=== PATIENT | male | born 1970 | race Two or more races ===

== ENCOUNTER 2019-03-27 13:28 | Inpatient (IN) | payer MEDICAID, OTHER ==
[~2019-03-27] VITALS: Ht 175.3 cm; Wt 82.0 kg
[2019-03-27 14:34] LABS: Basophils # (auto) 0.1 uL; Basophils % (auto) 1.7 % (0.0-2.0); Eosinophils # (auto) 0.2 uL; Eosinophils % (auto) 4.8 % (0.0-7.0); Hematocrit 30.2 % (41.0-53.0); Hemoglobin 10.2 g/dL (13.5-17.5); Lymphocytes # (auto) 0.6 uL; Lymphocytes % (auto) 12.8 % (10.0-50.0); Mean Corpuscular Hemoglobin 31.8 pg (28.0-32.0); Mean Corpuscular Hgb Conc. 33.6 g/dL (32.0-36.0); Mean Corpuscular Volume 94.6 fL (80.0-100.0); Monocytes # (auto) 0.4 uL; Monocytes % (auto) 9.1 % (0.0-12.0); Neutrophils # (auto) 3.5 uL; Neutrophils % (auto) 71.6 % (37.0-80.0); Platelet Count (auto) 247 10^3/uL (140-450); Red Blood Cells 3.19 10^6/uL (4.5-5.90); Red Cell Distribution Width 15.8 % (11.8-14.3); White Blood Cell 4.9 10^3/uL (4.4-10.8)
[2019-03-27 14:48] LABS: Albumin 3.4 g/dL (3.4-5.0); Calcium 9.4 mg/dL (8.5-10.1)
[2019-03-27 14:50] LABS: BUN/Creatinine Ratio 5.8
[2019-03-27 14:53] LABS: Bilirubin, Total 0.8 mg/dL (0.2-1.0); Total Protein 6.5 g/dL (6.4-8.2)
[2019-03-27] MEDS ORDERED: cefTRIAXone W LIDOCAINE 1 GM IM IM ONE (15:30)
[2019-03-27] MEDS ORDERED: InsuLIN REG 1unit/0.01ml Soln (100units/ml) IV ONE (16:15)
[2019-03-27] MEDS ORDERED: ALBUTEROL SULF 2.5 MG/0.5ML(0.5%) NEB SOLN NEB ONE (16:15)
[2019-03-27] MEDS ORDERED: SODIUM BICARBONATE 8.4% INJ 50ML SYRINGE IV ONE (16:15)
[2019-03-27] MEDS ORDERED: CALCIUM GLUC 4.65meq/50ml D5AE 50 ML IV ONE (16:15)
[2019-03-27] MEDS ORDERED: DEXTROSE (50%) 50ML SYRG IV ONE (16:15)
[2019-03-27] MEDS: SODIUM ZIRCONIUM CYCL 10 GM PAK PO SCH (17:14)
[2019-03-27] MEDS ORDERED: cefTRIAXone 1GM/50ML D5W 50 ML IV ONE (17:15)
[2019-03-27] MEDS ORDERED: NITROGLYCERIN 0.4 MG SL TAB SL PRN (17:30)
[2019-03-27] MEDS ORDERED: MORPHINE SULF INJ 2 MG/ML SYRINGE 1ML IV PRN (17:30)
[2019-03-27] MEDS ORDERED: DEXTROSE (50%) 50ML SYRG IV PRN (17:30)
[2019-03-27] MEDS: CARVEDILOL 3.125 MG TAB PO SCH (17:39)
[2019-03-27] MEDS: LABETALOL HCL 5 MG/ML 4ML SYRINGE IV PRN ×2 (18:35→23:26)
[2019-03-27] MEDS ORDERED: CAR3125T PO (20:24)
[2019-03-27] MEDS ORDERED: AMLO5TAB15 PO (20:28)
[2019-03-27] MEDS ORDERED: CALC667C PO (20:28)
[2019-03-27] MEDS ORDERED: FURO1TAB31 PO (20:28)
[2019-03-27] MEDS ORDERED: LISI-275 PO (20:28)
[2019-03-27] MEDS ORDERED: ATOR40TA52 PO (20:28)
[2019-03-27] MEDS ORDERED: TICA90TA PO (20:28)
[2019-03-27] MEDS ORDERED: INSLANTI SC (20:46)
[2019-03-27] MEDS ORDERED: INSREG3 SC (20:46)
[2019-03-27 21:37] VITALS: BP 176/109
--- NOTE | 2019-03-27 21:37 | NUR ---
Telemetry admit from ER CODY SUAREZ admitted to Telemetry unit after SBAR received. Patient oriented to KATHERINE BLANK, RN primary RN, [facility], 236 room, A bed, and unit policies regarding patient care and visiting hours. Patient now on continuous telemetry monitoring, tele box # 14 and telemetry reading on arrival to unit is SR. Patient placed on bedside oxygen, weighed by bedscale and encouraged to call if they need something. All questions and concerns addressed, patient verbalized understanding.
[2019-03-27] MEDS: TICAGRELOR 90 MG TAB PO SCH (22:46)
[2019-03-27] MEDS: INSULIN LANTUS (GLARGINE) 1 /0.01ml (100units/ml) SC SCH (22:47)
[2019-03-27] MEDS: ACCU-CHEK COMFORT CURVE STRIP VI SCH (22:47)
[2019-03-27] MEDS: InsuLIN REG 1unit/0.01ml Soln (100units/ml) SC SCH (22:47)
[2019-03-27 22:50] VITALS: BP 176/109
--- NOTE | 2019-03-28 01:00 | NUR ---
Paged Hospitalist to obtain sleeping pill. Hospitalist Magan ordered 15 Temazepam PO x1. Repeated orders to verified. Will follow as order.
[2019-03-28] MEDS ORDERED: TEMAZEPAM 15 MG CAP PO ONE (01:15)
[2019-03-28] MEDS: LABETALOL HCL 5 MG/ML 4ML SYRINGE IV PRN (02:08)
--- NOTE | 2019-03-28 02:15 | NUR ---
Patient ask to check his blood sugar. He felt it low. Blood sugar results of 67. Gave him juice and some crackers. Will reassess blood sugar after he eats
--- NOTE | 2019-03-28 03:03 | NUR ---
Reassess Blood sugar. Blood sugar 83
[2019-03-28 05:00] VITALS: BP 149/97
[2019-03-28 05:48] LABS: Basophils # (auto) 0.1 uL; Basophils % (auto) 1.3 % (0.0-2.0); Eosinophils # (auto) 0.3 uL; Eosinophils % (auto) 5.2 % (0.0-7.0); Hematocrit 27.2 % (41.0-53.0); Hemoglobin 9.2 g/dL (13.5-17.5); Lymphocytes # (auto) 0.7 uL; Lymphocytes % (auto) 13.6 % (10.0-50.0); Monocytes # (auto) 0.4 uL; Monocytes % (auto) 8.3 % (0.0-12.0); Neutrophils # (auto) 3.5 uL; Neutrophils % (auto) 71.6 % (37.0-80.0); Platelet Count (auto) 223 10^3/uL (140-450); Red Blood Cells 2.89 10^6/uL (4.5-5.90); Red Cell Distribution Width 15.6 % (11.8-14.3); White Blood Cell 4.9 10^3/uL (4.4-10.8)
[2019-03-28 06:29] LABS: BUN/Creatinine Ratio 6.4; Bilirubin, Total 0.6 mg/dL (0.2-1.0); Calcium 8.6 mg/dL (8.5-10.1); Total Protein 6.2 g/dL (6.4-8.2)
[2019-03-28] MEDS: SODIUM ZIRCONIUM CYCL 10 GM PAK PO SCH ×3 (06:29→22:00)
[2019-03-28 06:40] LABS: Potassium 5.8 mmol/L (3.5-5.1)
[2019-03-28] MEDS: ACCU-CHEK COMFORT CURVE STRIP VI SCH ×3 (06:41→18:16)
[2019-03-28] MEDS: InsuLIN REG 1unit/0.01ml Soln (100units/ml) SC SCH ×3 (06:41→18:17)
--- NOTE | 2019-03-28 06:41 | NUR ---
Paged hospitalist about critical lab. Waiting to hear back.
--- NOTE | 2019-03-28 07:04 | NUR ---
Hospitalist Magan called back. Updated him on the patient's background, ESRD, dialysis schedule for today, and [facility] admnister around 06:20. Magan stated, "that should cover him".
--- NOTE | 2019-03-28 08:05 | NUR ---
OPENING SHIFT NOTE ASSUMED CARE OF PT. PT IS AWAKE AND ALERT. NO SOB OR SIGNS OF DISTRESS NOTED. INSTRUCTED ON POC AND TO CALL FOR HELP PRN. BED IN LOWEST POSITION WITH SIDE RAILS UP X2. WILL CONTINUE TO MONITOR.
[2019-03-28 09:00] VITALS: BP 159/103
[2019-03-28] MEDS ORDERED: LISINOPRIL 20 MG TAB PO SCH (10:00)
[2019-03-28] MEDS: ASPirin-EC 81 mg tab PO SCH (10:08)
[2019-03-28] MEDS: CARVEDILOL 3.125 MG TAB PO SCH ×2 (10:08→18:14)
[2019-03-28] MEDS: TICAGRELOR 90 MG TAB PO SCH (10:09)
[2019-03-28] MEDS: amLODIPine BESYLATE 5 MG TAB PO SCH (10:09)
--- NOTE | 2019-03-28 11:42 | NUR ---
Nutrition Assessment/consult Notes please see attached link for complete assessment Est. Needs BW (82 kg): 4947-6578 kcal (27-30 kcal/kgBW), 98-106 gms pro (1.2-1.3 gms/kgBW r/t HD). Will continue to monitor pertinent labs and reassess nutrient need prn Addendum: 03/28/19 at [address] Amended: Links added.
[2019-03-28 13:00] VITALS: BP 161/98
[2019-03-28] MEDS ORDERED: FUROSEMIDE 40 MG/4 ML VIAL IV ONE (13:00)
[2019-03-28] MEDS ORDERED: ISOSORBIDE MONONITRATE ER 60 MG TAB PO ONE (13:15)
[2019-03-28] MEDS ORDERED: hydrALAZINE HCL 20 MG/ML VL IV PRN (13:15)
--- NOTE | 2019-03-28 13:15 | NUR ---
REVIEWED HOME MEDICATIONS WITH PT. PT HAS LASIX 40 MG PO 4 TIMES DAILY. PT STATES HE "TAKES 7 LASIX TABLETS PER DAY". DR HAHN IS AWARE.
[2019-03-28] MEDS ORDERED: hydrALAZINE HCL 25 MG TAB PO SCH (14:00)
[2019-03-28] MEDS: hydrALAZINE HCL 25 MG TAB PO SCH ×2 (15:49→18:15)
[2019-03-28] MEDS: CALCIUM ACETATE 667 MG CAP PO SCH (15:50)
[2019-03-28 16:56] VITALS: BP 163/100
[2019-03-28 20:00] VITALS: BP 142/91
--- NOTE | 2019-03-28 20:00 | NUR ---
Opening Shift Note Assumed care of patient, awake and alert. No S/S of distress/SOB or pain. Instructed on POC and to call for assist PRN, will continue to monitor for changes Q1hr and PRN. Dialysis nurse at bedside.
[2019-03-28] MEDS ORDERED: SODIUM CHL 0.9% 1000 ML BAG XX ONE (20:30)
[2019-03-28] MEDS ORDERED: EPOETIN ALFA 10,000 UNIT/1 ML VIAL SC ONE (20:30)
[2019-03-28 22:00] VITALS: BP 142/91
--- NOTE | 2019-03-28 22:00 | NUR ---
2200 Medications not given because dialysis going.
[2019-03-29] VITALS (7 sets, daily range): BP systolic 145–151; BP diastolic 86–93
--- NOTE | 2019-03-29 00:20 | NUR ---
Dialysis treatment done. Nurse from [facility] gave me primary nurse report. Patient's last BP 155/89 and HR 88. 4L were taken out. Patient complains of no pain or dizziness. Asked for food will give a sandwich.
[2019-03-29] MEDS: hydrALAZINE HCL 25 MG TAB PO SCH ×4 (00:52→22:34)
[2019-03-29] MEDS: TICAGRELOR 90 MG TAB PO SCH ×3 (00:52→22:34)
[2019-03-29] MEDS: ATORVASTATIN 20 MG TAB PO SCH ×2 (00:53→22:34)
[2019-03-29] MEDS: INSULIN LANTUS (GLARGINE) 1 /0.01ml (100units/ml) SC SCH ×2 (00:55→22:00)
[2019-03-29] MEDS: InsuLIN REG 1unit/0.01ml Soln (100units/ml) SC SCH ×5 (00:55→22:00)
[2019-03-29] MEDS: ACCU-CHEK COMFORT CURVE STRIP VI SCH ×5 (00:56→22:00)
[2019-03-29] MEDS ORDERED: SODIUM CHL 0.9% 1000 ML BAG XX ONE (07:00)
[2019-03-29 07:47] LABS: Basophils # (auto) 0.1 uL; Eosinophils # (auto) 0.2 uL; Eosinophils % (auto) 5.6 % (0.0-7.0); Hematocrit 28.3 % (41.0-53.0); Hemoglobin 9.5 g/dL (13.5-17.5); Lymphocytes # (auto) 0.4 uL; Lymphocytes % (auto) 11.5 % (10.0-50.0); Mean Corpuscular Hemoglobin 31.9 pg (28.0-32.0); Mean Corpuscular Hgb Conc. 33.7 g/dL (32.0-36.0); Mean Corpuscular Volume 94.7 fL (80.0-100.0); Monocytes # (auto) 0.3 uL; Monocytes % (auto) 6.9 % (0.0-12.0); Neutrophils # (auto) 2.8 uL; Platelet Count (auto) 210 10^3/uL (140-450); Red Blood Cells 2.98 10^6/uL (4.5-5.90); Red Cell Distribution Width 16.2 % (11.8-14.3); White Blood Cell 3.8 10^3/uL (4.4-10.8)
--- NOTE | 2019-03-29 08:00 | NUR ---
ASSESSMENT NOTE PT IS ALERT ORIENTED X4, RESTING IN BED COMFORTABLY, NO DISTRESS NOTED, ABLE TO SELF REPOSITION AND VERBALIS HIS DEMANDS, PT STATED I GET CHEST PAIN COME AND GO 10/26, ARE THEY GOING TO DO ANY THING ABOUT IT ? >, PT MADE AWARE THAT A MAINFRAME ARCHITECT WILL COME AND SEE HIM TODAY, PT DENIES ANY ACTIVE CHEST PAIN AT THIS TIME , CALL LIGHT WITHIN REACH.
[2019-03-29 08:13] LABS: Albumin 3.1 g/dL (3.4-5.0); BUN/Creatinine Ratio 5.5; Bilirubin, Total 0.6 mg/dL (0.2-1.0); Calcium 8.1 mg/dL (8.5-10.1); Magnesium 2.5 mg/dL (1.6-2.6); Total Protein 6.6 g/dL (6.4-8.2)
[2019-03-29 08:20] LABS: Potassium 5.8 mmol/L (3.5-5.1)
[2019-03-29] MEDS: CALCIUM ACETATE 667 MG CAP PO SCH ×3 (08:39→18:00)
[2019-03-29] MEDS: CARVEDILOL 3.125 MG TAB PO SCH ×2 (08:40→17:48)
[2019-03-29] MEDS: SODIUM ZIRCONIUM CYCL 10 GM PAK PO SCH ×2 (08:51→14:00)
[2019-03-29] MEDS: ISOSORBIDE MONONITRATE ER 60 MG TAB PO SCH (08:52)
[2019-03-29] MEDS: ASPirin-EC 81 mg tab PO SCH (08:52)
[2019-03-29] MEDS: amLODIPine BESYLATE 5 MG TAB PO SCH (08:53)
[2019-03-29] MEDS ORDERED: DOCUSATE SOD 100 MG CAP PO ONE (09:00)
[2019-03-29] MEDS ORDERED: DOCUSATE SOD 100 MG CAP PO PRN (09:00)
[2019-03-29] MEDS ORDERED: FUROSEMIDE 40 MG/4 ML VIAL IV SCH (10:00)
[2019-03-29] MEDS: SEVELAMER 800 MG TAB PO SCH ×2 (12:00→18:00)
--- NOTE | 2019-03-29 12:09 | NUR ---
LASIX [address] SPENCE, MADE AWARE THAT 40 MG IV WAS GIVEN EARLIER, SAID TO GIVE THE 80 MG LASIX AND CHANGE THE ORDER TO LASIX 80 EVERY MORNING
[2019-03-29] MEDS: FUROSEMIDE 100 MG/10ML VIAL IV SCH (12:55)
[2019-03-29] MEDS ORDERED: LACTULOSE 20Gm/30ML SOLN PO PRN (13:00)
[2019-03-29] MEDS ORDERED: SODIUM ZIRCONIUM CYCL 10 GM PAK PO ONE (17:45)
--- NOTE | 2019-03-29 18:30 | NUR ---
FAMILY APTIENT'S AND THE CHILDREN AT BED SIDE
--- NOTE | 2019-03-29 18:50 | NUR ---
PT CONTINUE STABLE CONTINUE MONITORING
--- NOTE | 2019-03-29 19:50 | NUR ---
Opening Shift Note Assumed care of patient, awake and alert. No S/S of distress/SOB or pain. Instructed on POC and to call for assist PRN, will continue to monitor for changes Q1hr and PRN. and grandchildren at bedside.
[2019-03-29] MEDS ORDERED: EPOETIN ALFA 10,000 UNIT/1 ML VIAL SC ONE (21:00)
--- NOTE | 2019-03-29 22:20 | NUR ---
Patient refused his Lantus medication. Educated but still refused.
--- NOTE | 2019-03-30 00:55 | NUR ---
IV insertion IV access obtained, via clean sterile technique by inserting 22 gauge catheter at RAC after 2 attempts. IV secured properly. No trauma to site. Patient tolerated well.
[2019-03-30 05:00] VITALS: BP 149/88
[2019-03-30] MEDS: hydrALAZINE HCL 25 MG TAB PO SCH ×2 (06:25→15:15)
[2019-03-30] MEDS: InsuLIN REG 1unit/0.01ml Soln (100units/ml) SC SCH ×3 (06:26→13:30)
[2019-03-30] MEDS: ACCU-CHEK COMFORT CURVE STRIP VI SCH ×2 (06:26→11:30)
[2019-03-30 06:29] LABS: Chloride 102 mmol/L (98-107); Potassium 4.8 mmol/L (3.5-5.1); Sodium 140 mmol/L (136-145)
[2019-03-30 06:41] LABS: Anion Gap 6 (5-15); BUN/Creatinine Ratio 6.4; Blood Urea Nitrogen 48 mg/dL (7-18); Calcium 8.5 mg/dL (8.5-10.1); Carbon Dioxide 32 mmol/L (21-32); GFR African American 10 mL/min; GFR Non-African American 8 mL/min; Glucose 94 mg/dL (74-106)
[2019-03-30] MEDS ORDERED: SODIUM CHL 0.9% 1000 ML BAG XX ONE (07:00)
--- NOTE | 2019-03-30 07:50 | NUR ---
NUCLEAR MEDS TECH AT BED SIDE INJECTING THE CARDIOLITE,FOLLOWED BY PT LEFT FOR THE RESTING PART FOR THE RESTING PART
[2019-03-30 08:00] VITALS: BP 149/88
[2019-03-30] MEDS: SEVELAMER 800 MG TAB PO SCH ×2 (08:00→13:42)
[2019-03-30] MEDS: CALCIUM ACETATE 667 MG CAP PO SCH ×2 (08:00→13:42)
--- NOTE | 2019-03-30 08:00 | NUR ---
ASSESSMENT NOTE PT IS ALERT ORIENTED X4, RESTING IN BED COMFORTABLY, NO DISTRESS NOTED, ABLE TO SELF REPOSITION AND VERBALIS HIS DEMANDS, DENIES ANY CHEST PAIN AT THIS TIME 010, AV SHUNT NOTED AT LEFT UPPER ARM, FOR THRILL, CALL LIGHT WITHIN REACH
[2019-03-30] MEDS ORDERED: ADENOSINE 69 MG in GIVE UN-DILUTED 0 ML IV STA (08:32)
[2019-03-30 09:00] VITALS: BP 157/91
--- NOTE | 2019-03-30 09:30 | NUR ---
PT LEFT VIA WHEELCHAIR FOR STRESS TEST
[2019-03-30] MEDS: FUROSEMIDE 100 MG/10ML VIAL IV SCH (10:00)
--- NOTE | 2019-03-30 10:30 | NUR ---
PT IS BACK TO HIS ROOM TOLERATED STRESS TEST WELL, PT TOLERATED WELL
--- NOTE | 2019-03-30 11:30 | NUR ---
DR HAHN INFORM ME THAT SHE SEEN THE PT, AWARE OF THE DISCHARGE HOME, AND HE NEED TO STOP LOSARTAN SINCE IT INCREASE HIS K+
[2019-03-30] MEDS ORDERED: ISO60SRT PO (12:13)
[2019-03-30] MEDS ORDERED: CAR3125T PO (12:13)
[2019-03-30] MEDS ORDERED: HYDR-2691 PO (12:13)
--- NOTE | 2019-03-30 12:30 | NUR ---
DIALYSIS PT CONTINUE TOLERATING DIET WELL
[2019-03-30 13:00] VITALS: BP 172/96
--- NOTE | 2019-03-30 13:49 | NUR ---
DIALYSIS IS DONE PT TOLERATED WELL
--- NOTE | 2019-03-30 15:00 | NUR ---
STRESS TEST RESULTS CONTINUE PENDING FOR THE RESULTS
[2019-03-30] MEDS: ASPirin-EC 81 mg tab PO SCH (15:11)
[2019-03-30] MEDS: CARVEDILOL 3.125 MG TAB PO SCH (15:14)
[2019-03-30] MEDS: ISOSORBIDE MONONITRATE ER 60 MG TAB PO SCH (15:14)
[2019-03-30] MEDS: amLODIPine BESYLATE 5 MG TAB PO SCH (15:15)
[2019-03-30 15:22] VITALS: BP 164/100
--- NOTE | 2019-03-30 15:30 | NUR ---
PAGE DR HAHN TO OBTAIN THE NEW RX, AND LET HER KNOW ABOUT THE STRESS TEST RESUKTS CONTINUE PENDING, DR HAHN WAS NOT AVALIABLE IN HER OFFICE, MESSAGE LEFT WITH DR CORREA
--- NOTE | 2019-03-30 15:32 | NUR ---
DR HAHN CALLED BACK SAID THAT SHE SENT THE NEW RX ELECTRONICALLY TO PT PREFERRED PHARMACY
--- NOTE | 2019-03-30 15:36 | NUR ---
SPOKE WITH DR COREAS REGARDING STRESS TEST RESULTS, SAID PT CAN GO HOME
[2019-03-30] MEDS: TICAGRELOR 90 MG TAB PO SCH (15:46)
--- NOTE | 2019-03-30 16:44 | NUR ---
Discharge instructions given as ordered. Encourage to follow up with PMD as instructed. All questions and concerns addressed. Patient verbalized understanding. Medication reconciliation form completed and copy given to patient.IV removed with catheter intact, pressure dressing applied, Telemetry unit returned to ICU. Patient taken to vehicle via wheelchair with all personal belongings, accompanied by staff and family member. No distress noted at time of departure.
[2019-03-30] MEDS ORDERED: EPOETIN ALFA 10,000 UNIT/1 ML VIAL SC ONE (21:00)
--- NOTE | 2019-03-31 12:09 | NUR ---
Social Service consult regarding Advance Directives. Provided pt with informarion on Advance Directives and Durable Power of business attorney Form. Pt verbalized understanding and acceptance o information. Will Contact [employer] services field supervisor for any further concerns. or issues.
== END 2019-03-30 17:45 | disposition home or self-care (01) | DRG 194 ==
LOC: ER 13:45 → TELE 13:46 → TELE-EAST 21:37
PROVIDERS: ADMIT Nurse Practitioner Acute Care; ATTEND Internal Medicine
PROC: 5A1D70Z Performance of Urinary Filtration, Intermittent, Less than 6 Hours Per Day (ICD-10-PCS; 2019-03-28)
PROC: 5A1D70Z Performance of Urinary Filtration, Intermittent, Less than 6 Hours Per Day (ICD-10-PCS; principal; 2019-03-30)
DX: I13.2 Hypertensive heart and chronic kidney disease with heart failure and with stage 5 chronic kidney disease, or end stage renal disease (principal); E11.22 Type 2 diabetes mellitus with diabetic chronic kidney disease; N18.6 End stage renal disease; I50.43 Acute on chronic combined systolic (congestive) and diastolic (congestive) heart failure; E11.65 Type 2 diabetes mellitus with hyperglycemia; E83.39 Other disorders of phosphorus metabolism; D63.1 Anemia in chronic kidney disease; J44.1 Chronic obstructive pulmonary disease with (acute) exacerbation; I16.0 Hypertensive urgency; F17.210 Nicotine dependence, cigarettes, uncomplicated; I25.5 Ischemic cardiomyopathy; K59.00 Constipation, unspecified; E87.5 Hyperkalemia; Z99.2 Dependence on renal dialysis; Z95.5 Presence of coronary angioplasty implant and graft; Z79.899 Other long term (current) drug therapy; Z82.49 Family history of ischemic heart disease and other diseases of the circulatory system; Z83.3 Family history of diabetes mellitus; Z86.73 Personal history of transient ischemic attack (TIA), and cerebral infarction without residual deficits; Z87.01 Personal history of pneumonia (recurrent); Z79.84 Long term (current) use of oral hypoglycemic drugs
CPT/HCPCS: 36415; 71046; 71250; 78452; 80048; 80053; 80061; 82306; 82728; 82962; 83036; 83735; 83880; 83970; 84100; 84132; 84484; 85025; 87081; 90935; 93005; 93017; 93306; 94644; 96365; 96367; 96375; G0378; J0153; J0610; J0696; J0885; J1642; J1815; J3490

== ENCOUNTER 2019-06-12 13:52 | Inpatient (IN) | payer MEDICARE, MEDICAID ==
[~2019-06-12] VITALS: Ht 172.7 cm; Wt 85.5 kg
[~2019-06-12 13:52] MED LIST: AMLO5TAB15 PO; ATOR40TA52 PO; CALC667C PO; CAR3125T PO; FURO1TAB31 PO; HYDR-2691 PO; INSLANTI SC; INSREG3 SC; ISO60SRT PO; TICA90TA PO
[2019-06-12 14:22] LABS: Basophils # (auto) 0 uL; Basophils % (auto) 0.3 % (0.0-2.0); Eosinophils # (auto) 0.5 uL; Eosinophils % (auto) 10.3 % (0.0-7.0); Hematocrit 31.9 % (41.0-53.0); Hemoglobin 10.5 g/dL (13.5-17.5); Lymphocytes # (auto) 0.5 uL; Lymphocytes % (auto) 10.4 % (10.0-50.0); Mean Corpuscular Hemoglobin 32.1 pg (28.0-32.0); Mean Corpuscular Hgb Conc. 33.1 g/dL (32.0-36.0); Monocytes # (auto) 0.3 uL; Monocytes % (auto) 6.3 % (0.0-12.0); Neutrophils # (auto) 3.4 uL; Neutrophils % (auto) 72.7 % (37.0-80.0); Platelet Count (auto) 137 10^3/uL (140-450); Red Blood Cells 3.28 10^6/uL (4.5-5.90); Red Cell Distribution Width 18.9 % (11.8-14.3); White Blood Cell 4.7 10^3/uL (4.4-10.8)
[2019-06-12 14:47] LABS: Albumin 3.6 g/dL (3.4-5.0); BUN/Creatinine Ratio 7.2; Calcium 8.6 mg/dL (8.5-10.1)
[2019-06-12 14:50] LABS: Bilirubin, Total 0.7 mg/dL (0.2-1.0); Total Protein 7.1 g/dL (6.4-8.2)
[2019-06-12 14:54] LABS: Potassium 6.5 mmol/L (3.5-5.1)
[2019-06-12] MEDS ORDERED: SODIUM ZIRCONIUM CYCL 10 GM PAK PO ONE (16:45)
[2019-06-12] MEDS ORDERED: InsuLIN REG 1unit/0.01ml Soln (100units/ml) IV ONE (16:45)
[2019-06-12] MEDS ORDERED: DEXTROSE (50%) 50ML SYRG IV ONE (16:45)
[2019-06-12] MEDS ORDERED: ALBUTEROL SULF 2.5 MG/0.5ML(0.5%) NEB SOLN NEB ONE (16:45)
[2019-06-12] MEDS ORDERED: SODIUM BICARBONATE 8.4 % INJ 50ML VIAL IV ONE (16:45)
[2019-06-12] MEDS ORDERED: CALCIUM GLUC 4.65meq/50ml D5AE 50 ML IV ONE (16:45)
[2019-06-12] MEDS ORDERED: HYDROmorphone HCL 2 MG/ML VL IV ONE (19:00)
[2019-06-12] MEDS ORDERED: NITROGLYCERIN 0.4MG/HR TOPICAL PATCH TD ONE (19:45)
[2019-06-12] MEDS ORDERED: ENALAPRILAT 1.25 MG/ML-1ML VIAL IV ONE (19:45)
[2019-06-12] MEDS ORDERED: ONDANSETRON HCL 4 MG/2 ML VIAL IV PRN (20:45)
[2019-06-12] MEDS ORDERED: DOCUSATE SOD 100 MG CAP PO PRN (20:45)
[2019-06-12] MEDS ORDERED: ACETAMINOPHEN 325 MG TAB PO PRN (20:45)
[2019-06-12] MEDS ORDERED: MORPHINE SULF INJ 2 MG/ML SYRINGE 1ML IV PRN (20:45)
[2019-06-12 22:48] VITALS: BP_SYST 123; BP_SYST 170; BP_DIAS 69; BP_DIAS 95
[2019-06-12] MEDS: hydrALAZINE HCL 25 MG TAB PO PRN (23:43)
[2019-06-13] VITALS (7 sets, daily range): BP systolic 151–176; BP diastolic 86–102
[2019-06-13] MEDS ORDERED: DEXTROSE (50%) 50ML SYRG IV PRN (01:45)
[2019-06-13] MEDS: ACCU-CHEK COMFORT CURVE STRIP VI SCH ×6 (04:11→23:57)
[2019-06-13] MEDS: InsuLIN REG 1unit/0.01ml Soln (100units/ml) SC SCH ×6 (04:11→23:58)
[2019-06-13] MEDS ORDERED: PNEUMOCOCCAL VACC POLYS 25 MCG/0.5 ML VIAL IM ONE (06:15)
[2019-06-13] MEDS ORDERED: INFLUENZA QUAD 2019-2020 0.5ml SYRG IM ONE (06:15)
[2019-06-13 06:51] LABS: Basophils # (auto) 0.1 uL; Basophils % (auto) 1.3 % (0.0-2.0); Eosinophils # (auto) 0.4 uL; Eosinophils % (auto) 8.2 % (0.0-7.0); Hematocrit 28.2 % (41.0-53.0); Hemoglobin 9.6 g/dL (13.5-17.5); Lymphocytes # (auto) 0.7 uL; Lymphocytes % (auto) 13.6 % (10.0-50.0); Mean Corpuscular Hemoglobin 32.4 pg (28.0-32.0); Mean Corpuscular Hgb Conc. 33.9 g/dL (32.0-36.0); Mean Corpuscular Volume 95.5 fL (80.0-100.0); Monocytes # (auto) 0.4 uL; Monocytes % (auto) 7.5 % (0.0-12.0); Neutrophils # (auto) 3.4 uL; Neutrophils % (auto) 69.4 % (37.0-80.0); Platelet Count (auto) 119 10^3/uL (140-450); Red Blood Cells 2.95 10^6/uL (4.5-5.90); Red Cell Distribution Width 18.6 % (11.8-14.3); White Blood Cell 4.9 10^3/uL (4.4-10.8)
[2019-06-13 07:14] LABS: BUN/Creatinine Ratio 6.9; Calcium 8.7 mg/dL (8.5-10.1); Phosphorus 6.5 mg/dL (2.5-4.90)
[2019-06-13 07:48] LABS: Potassium 6.1 mmol/L (3.5-5.1)
[2019-06-13] MEDS ORDERED: SODIUM CHL 0.9% 1000 ML BAG XX ONE (08:15)
[2019-06-13] MEDS ORDERED: LOPERAMIDE HCL 2 MG CAP PO ONE (09:45)
[2019-06-13] MEDS ORDERED: BUMETANIDE 2.5mg/10ml (0.25 mg/ml) INJ IV ONE (09:45)
[2019-06-13] MEDS: SEVELAMER 800 MG TAB PO SCH ×2 (12:40→18:45)
[2019-06-13] MEDS: HYDROcodone-ACET 5/325MG TAB PO PRN ×2 (15:57→23:54)
[2019-06-13] MEDS: hydrALAZINE HCL 25 MG TAB PO PRN (18:45)
[2019-06-13] MEDS ORDERED: AMLO5TAB15 PO (20:24)
[2019-06-13] MEDS ORDERED: FURO40TA4 PO (20:26)
[2019-06-13] MEDS ORDERED: METO-169 PO (20:29)
[2019-06-13] MEDS ORDERED: LISI40TA PO (20:31)
[2019-06-13] MEDS ORDERED: ASPI-404 PO (20:32)
[2019-06-13] MEDS ORDERED: EPOETIN ALFA 10,000 UNIT/1 ML VIAL SC ONE (21:00)
[2019-06-13] MEDS ORDERED: LABETALOL HCL 5 MG/ML 4ML SYRINGE IV ONE (21:15)
[2019-06-13] MEDS ORDERED: INSULIN LANTUS (GLARGINE) 1 /0.01ml (100units/ml) SC SCH (22:00)
[2019-06-13] MEDS ORDERED: LABETALOL HCL 5 MG/ML ML 20ML VIAL IV ONE (22:15)
[2019-06-14] MEDS ORDERED: DEXTROSE (50%) 50ML SYRG IV PRN (00:45)
[2019-06-14] MEDS: InsuLIN REG 1unit/0.01ml Soln (100units/ml) SC SCH ×4 (04:00→16:00)
[2019-06-14] MEDS: ACCU-CHEK COMFORT CURVE STRIP VI SCH ×4 (04:14→16:00)
[2019-06-14 05:00] VITALS: BP 156/95
[2019-06-14] MEDS: hydrALAZINE HCL 25 MG TAB PO PRN (05:37)
[2019-06-14 06:13] LABS: Basophils # (auto) 0.1 uL; Basophils % (auto) 1.9 % (0.0-2.0); Eosinophils # (auto) 0.3 uL; Eosinophils % (auto) 7.9 % (0.0-7.0); Hematocrit 28.3 % (41.0-53.0); Hemoglobin 9.4 g/dL (13.5-17.5); Lymphocytes # (auto) 0.4 uL; Lymphocytes % (auto) 9.6 % (10.0-50.0); Mean Corpuscular Hemoglobin 31.7 pg (28.0-32.0); Mean Corpuscular Hgb Conc. 33.2 g/dL (32.0-36.0); Mean Corpuscular Volume 95.5 fL (80.0-100.0); Monocytes # (auto) 0.3 uL; Monocytes % (auto) 7.1 % (0.0-12.0); Neutrophils % (auto) 73.5 % (37.0-80.0); Platelet Count (auto) 123 10^3/uL (140-450); Red Blood Cells 2.96 10^6/uL (4.5-5.90); Red Cell Distribution Width 18.4 % (11.8-14.3); White Blood Cell 4.1 10^3/uL (4.4-10.8)
[2019-06-14 06:45] LABS: BUN/Creatinine Ratio 6.5; Calcium 8.3 mg/dL (8.5-10.1)
[2019-06-14 06:55] LABS: Potassium 6.1 mmol/L (3.5-5.1)
[2019-06-14] MEDS ORDERED: DEXTROSE (50%) 50ML SYRG IV ONE (07:45)
[2019-06-14] MEDS ORDERED: LACTULOSE 20Gm/30ML SOLN PO ONE (07:45)
[2019-06-14] MEDS ORDERED: BUMETANIDE 2.5mg/10ml (0.25 mg/ml) INJ IV ONE (07:45)
[2019-06-14] MEDS ORDERED: InsuLIN REG 1unit/0.01ml Soln (100units/ml) IV ONE (07:45)
[2019-06-14] MEDS ORDERED: ALBUTEROL SULF 2.5 MG/0.5ML(0.5%) NEB SOLN NEB ONE (07:45)
[2019-06-14] MEDS: HYDROcodone-ACET 5/325MG TAB PO PRN ×2 (08:07→15:21)
[2019-06-14] MEDS: SEVELAMER 800 MG TAB PO SCH ×3 (08:07→18:00)
[2019-06-14] MEDS ORDERED: SODIUM CHL 0.9% 1000 ML BAG XX ONE (08:30)
[2019-06-14 09:00] VITALS: BP 146/82
[2019-06-14] MEDS ORDERED: METOPROLOL SUCCINATE XL 50 MG TAB PO SCH (10:00)
[2019-06-14] MEDS ORDERED: amLODIPine BESYLATE 5 MG TAB PO SCH (10:00)
[2019-06-14] MEDS ORDERED: LISINOPRIL 20 MG TAB PO SCH (10:00)
[2019-06-14 11:38] VITALS: BP 146/82
[2019-06-14 12:35] LABS: Calcium 8.6 mg/dL (8.5-10.1)
[2019-06-14 12:38] LABS: BUN/Creatinine Ratio 6.7
[2019-06-14 13:00] VITALS: BP 160/90
[2019-06-14 17:00] VITALS: BP 166/94
[2019-06-14] MEDS ORDERED: EPOETIN ALFA 10,000 UNIT/1 ML VIAL SC ONE (21:00)
[2019-06-15 09:40] LABS: Hepatitis A Ab IgM Negative
[2019-06-15 09:41] LABS: Hepatitis B Core IgM Negative; Hepatitis B Surface Antigen Negative (Negative); Hepatitis C Antibody Negative (Negative)
[2019-06-15] MEDS ORDERED: LISINOPRIL 20 MG TAB PO SCH (10:00)
== END 2019-06-14 20:50 | disposition home or self-care (01) | DRG 291 ==
LOC: ER 13:53 → TELE-CENTR 13:54
PROVIDERS: ADMIT Hospitalist; ATTEND Family Medicine
PROC: 5A1D70Z Performance of Urinary Filtration, Intermittent, Less than 6 Hours Per Day (ICD-10-PCS; principal; 2019-06-14)
DX: I13.2 Hypertensive heart and chronic kidney disease with heart failure and with stage 5 chronic kidney disease, or end stage renal disease (principal); I50.43 Acute on chronic combined systolic (congestive) and diastolic (congestive) heart failure; N18.6 End stage renal disease; E87.5 Hyperkalemia; Z99.2 Dependence on renal dialysis; D63.1 Anemia in chronic kidney disease; E78.00 Pure hypercholesterolemia, unspecified; E11.22 Type 2 diabetes mellitus with diabetic chronic kidney disease; E11.21 Type 2 diabetes mellitus with diabetic nephropathy; M19.90 Unspecified osteoarthritis, unspecified site; I25.2 Old myocardial infarction; Z91.19 Patient's noncompliance with other medical treatment and regimen; Z87.891 Personal history of nicotine dependence; Z79.899 Other long term (current) drug therapy
CPT/HCPCS: 36415; 71046; 80048; 80053; 80074; 82728; 82962; 83540; 83550; 83880; 84100; 84132; 85025; 87081; 93005; 94644; 96365; 96375; G0378; J0610; J0885; J1642; J1815

== ENCOUNTER 2019-12-20 10:26 | Inpatient (IN) | payer MEDICAID, MEDICARE ==
[~2019-12-20] VITALS: Ht 172.7 cm; Wt 76.1 kg
[~2019-12-20 10:26] MED LIST changes: +ASPI-543 PO; -CAR3125T PO; -FURO1TAB31 PO; +FURO40TA4 PO; -HYDR-2691 PO; -ISO60SRT PO; +LISI40TA11 PO; +METO-169 PO
[2019-12-20 11:00] LABS: Basophils # (auto) 0 10 ^3/uL (0-0.2); Basophils % (auto) 0.7 % (0.0-2.0); Eosinophils # (auto) 0.2 10 ^3/uL (0-0.8); Eosinophils % (auto) 3.4 % (0.0-7.0); Hematocrit 35.9 % (41.0-53.0); Hemoglobin 12.1 g/dL (13.5-17.5); Lymphocytes # (auto) 0.8 10 ^3/uL (0.4-5.4); Lymphocytes % (auto) 11.3 % (10.0-50.0); Mean Corpuscular Hemoglobin 32.5 pg (28.0-32.0); Mean Corpuscular Hgb Conc. 33.6 g/dL (32.0-36.0); Mean Corpuscular Volume 96.6 fL (80.0-100.0); Monocytes # (auto) 0.4 10 ^3/uL (0-1.3); Monocytes % (auto) 6.3 % (0.0-12.0); Neutrophils # (auto) 5.6 10 ^3/uL (1.6-8.6); Neutrophils % (auto) 78.3 % (37.0-80.0); Platelet Count (auto) 184 10^3/uL (140-450); Red Blood Cells 3.71 10^6/uL (4.5-5.90); White Blood Cell 7.1 10^3/uL (4.4-10.8)
[2019-12-20 11:13] LABS: Albumin 3.9 g/dL (3.4-5.0); Anion Gap 11 (5-15); Blood Urea Nitrogen 66 mg/dL (7-18); Calcium 9.2 mg/dL (8.5-10.1); Carbon Dioxide 29 mmol/L (21-32); Chloride 98 mmol/L (98-107); Glucose 65 mg/dL (74-106); Potassium 5.4 mmol/L (3.5-5.1); Sodium 138 mmol/L (136-145)
[2019-12-20 11:20] LABS: Alanine Aminotransferase 25 U/L (16-61); Alkaline Phosphatase 166 U/L (45-117); Aspartate Aminotransferase 19 U/L (15-37); BUN/Creatinine Ratio 7.5; Bilirubin, Total 0.7 mg/dL (0.2-1.0); GFR African American 8 mL/min; GFR Non-African American 7 mL/min; Total Protein 7.6 g/dL (6.4-8.2)
[2019-12-20] MEDS ORDERED: MORPHINE SULF INJ 2 MG/ML SYRINGE 1ML IV ONE (12:00)
[2019-12-20] MEDS ORDERED: ASPirin-EC 81 mg tab PO ONE ×2 (12:00→13:27)
[2019-12-20] MEDS ORDERED: ONDANSETRON HCL 4 MG/2 ML VIAL IV ONE (12:00)
[2019-12-20] MEDS ORDERED: METOPROLOL SUCCINATE XL 50 MG TAB PO ONE (12:30)
[2019-12-20] MEDS ORDERED: FUROSEMIDE 100 MG/10ML VIAL IV ONE (12:30)
[2019-12-20] MEDS ORDERED: NITROGLYCERIN 0.4 MG SL TAB SL PRN ×2 (12:30)
[2019-12-20] MEDS ORDERED: MORPHINE SULFATE 4 MG/ML SYR/VIAL IV PRN (12:30)
[2019-12-20] MEDS ORDERED: ISOSORBIDE MONONITRATE ER 60 MG TAB PO ONE (12:30)
[2019-12-20] MEDS ORDERED: ALUM & MAG HYDROX-SIMETH LIQ(MAALOX) 30 ML PO ONE (12:30)
[2019-12-20] MEDS ORDERED: LABETALOL HCL 5 MG/ML 4ML SYRINGE IV ONE (12:30)
[2019-12-20] MEDS ORDERED: hydrALAZINE HCL 25 MG TAB PO ONE ×2 (12:30→23:00)
[2019-12-20 12:50] LABS: INR 0.97 (0.9-1.15); Partial Thromboplastin Time 27.1 sec (23.0-31.2)
[2019-12-20] MEDS ORDERED: AMLO10TA13 PO (12:51)
[2019-12-20] MEDS ORDERED: FURO40TA4 PO (12:51)
[2019-12-20] MEDS ORDERED: B-CO-5 PO (12:55)
[2019-12-20] MEDS ORDERED: INSLISPI SC (12:57)
[2019-12-20] MEDS: CALCIUM ACETATE 667 MG CAP PO SCH ×2 (14:22→18:55)
[2019-12-20] MEDS: InsuLIN REG 1unit/0.01ml Soln (100units/ml) SC SCH ×2 (17:00→22:00)
[2019-12-20] MEDS: ACCU-CHEK COMFORT CURVE STRIP VI SCH ×2 (17:00→22:20)
[2019-12-20] MEDS: FUROSEMIDE 40 MG/4 ML VIAL IV SCH (18:54)
[2019-12-20] MEDS: ONDANSETRON HCL 4 MG/2 ML VIAL IV PRN (20:10)
[2019-12-20 21:28] VITALS: BP 168/93
[2019-12-20 22:00] VITALS: BP 168/93
[2019-12-20] MEDS ORDERED: hydrALAZINE HCL 25 MG TAB PO SCH (22:00)
[2019-12-20] MEDS ORDERED: HEPARIN SODIUM (PORCINE) 5000 UNITS/ML 1ML VIAL SC SCH (22:00)
[2019-12-20] MEDS: ATORVASTATIN 20 MG TAB PO SCH (22:20)
[2019-12-20] MEDS ORDERED: hydrALAZINE HCL 25 MG TAB PO PRN (23:00)
[2019-12-20] MEDS: TICAGRELOR 90 MG TAB PO SCH (23:45)
[2019-12-21] MEDS: LORazepam 0.5 MG TAB PO PRN ×2 (04:40→17:57)
[2019-12-21 05:00] VITALS: BP 157/95
[2019-12-21] MEDS: FUROSEMIDE 40 MG/4 ML VIAL IV SCH ×2 (06:00→17:48)
[2019-12-21] MEDS: hydrALAZINE HCL 25 MG TAB PO SCH ×3 (06:00→22:00)
[2019-12-21] MEDS: InsuLIN REG 1unit/0.01ml Soln (100units/ml) SC SCH ×4 (07:00→22:00)
[2019-12-21] MEDS: ACCU-CHEK COMFORT CURVE STRIP VI SCH ×4 (07:00→22:00)
[2019-12-21] MEDS ORDERED: SODIUM CHL 0.9% 1000 ML BAG XX ONE (07:15)
[2019-12-21 08:00] VITALS: BP 166/103
[2019-12-21] MEDS: CALCIUM ACETATE 667 MG CAP PO SCH ×3 (08:00→17:48)
[2019-12-21 09:00] VITALS: BP 166/103
[2019-12-21] MEDS: ENOXAPARIN SOD 30 MG/0.3 ML SYRINGE SC SCH (10:07)
[2019-12-21] MEDS: ISOSORBIDE MONONITRATE ER 60 MG TAB PO SCH (10:08)
[2019-12-21] MEDS: amLODIPine BESYLATE 5 MG TAB PO SCH (10:08)
[2019-12-21] MEDS: DOCUSATE SOD 100 MG CAP PO SCH (10:09)
[2019-12-21] MEDS: METOPROLOL SUCCINATE XL 50 MG TAB PO SCH (10:09)
[2019-12-21] MEDS: ASPirin-EC 81 mg tab PO SCH (10:18)
[2019-12-21] MEDS: TICAGRELOR 90 MG TAB PO SCH ×2 (11:57→21:43)
[2019-12-21] MEDS: ATORVASTATIN 20 MG TAB PO SCH (21:43)
[2019-12-21 23:00] VITALS: BP 151/95
[2019-12-22 05:00] VITALS: BP 159/103
[2019-12-22] MEDS: FUROSEMIDE 40 MG/4 ML VIAL IV SCH ×2 (06:00→17:27)
[2019-12-22] MEDS: hydrALAZINE HCL 25 MG TAB PO SCH ×3 (06:00→22:01)
[2019-12-22] MEDS: HYDROcodone-ACET 5/325MG TAB PO PRN (06:50)
[2019-12-22 06:53] LABS: BUN/Creatinine Ratio 7.6; Calcium 8.2 mg/dL (8.5-10.1)
[2019-12-22] MEDS: InsuLIN REG 1unit/0.01ml Soln (100units/ml) SC SCH ×4 (06:54→22:03)
[2019-12-22] MEDS: ACCU-CHEK COMFORT CURVE STRIP VI SCH ×4 (06:54→22:01)
[2019-12-22 07:34] LABS: Potassium 6.4 mmol/L (3.5-5.1)
[2019-12-22] MEDS ORDERED: ADENOSINE 67 MG in GIVE UN-DILUTED 0 ML IV STA (08:13)
[2019-12-22 08:15] VITALS: BP 159/104
[2019-12-22 09:00] VITALS: BP 159/104
[2019-12-22] MEDS ORDERED: LABETALOL HCL 5 MG/ML ML 20ML VIAL IV ONE (09:01)
[2019-12-22] MEDS ORDERED: SODIUM BICARBONATE 8.4 % INJ 50ML VIAL IV ONE ×2 (09:15→12:00)
[2019-12-22] MEDS ORDERED: ALBUTEROL SULF 2.5 MG/0.5ML(0.5%) NEB SOLN NEB ONE (09:15)
[2019-12-22] MEDS: ENOXAPARIN SOD 30 MG/0.3 ML SYRINGE SC SCH (11:55)
[2019-12-22] MEDS: amLODIPine BESYLATE 5 MG TAB PO SCH (11:55)
[2019-12-22] MEDS: TICAGRELOR 90 MG TAB PO SCH ×2 (11:55→22:01)
[2019-12-22] MEDS: DOCUSATE SOD 100 MG CAP PO SCH (11:56)
[2019-12-22] MEDS: ISOSORBIDE MONONITRATE ER 60 MG TAB PO SCH (11:56)
[2019-12-22] MEDS: ASPirin-EC 81 mg tab PO SCH (11:57)
[2019-12-22] MEDS: METOPROLOL SUCCINATE XL 50 MG TAB PO SCH (11:57)
[2019-12-22] MEDS: CALCIUM ACETATE 667 MG CAP PO SCH ×3 (12:00→17:25)
[2019-12-22 13:00] VITALS: BP 152/96
[2019-12-22] MEDS ORDERED: ALBUTEROL SULF 2.5 MG/0.5ML(0.5%) NEB SOLN NEB PRN (13:30)
[2019-12-22] MEDS ORDERED: IPRATROPIUM BROM 0.5 MG/2.5ML INH SOL NEB PRN (13:30)
[2019-12-22] MEDS ORDERED: SODIUM ZIRCONIUM CYCL 10 GM PAK PO ONE (15:00)
[2019-12-22 17:00] VITALS: BP 148/89
[2019-12-22] MEDS: ALBUTEROL SULF 2.5 MG/0.5ML(0.5%) NEB SOLN NEB SCH (18:26)
[2019-12-22] MEDS: IPRATROPIUM BROM 0.5 MG/2.5ML INH SOL NEB SCH (18:26)
[2019-12-22] MEDS: LORazepam 0.5 MG TAB PO PRN (22:01)
[2019-12-22] MEDS: ATORVASTATIN 20 MG TAB PO SCH (22:01)
[2019-12-22 23:02] VITALS: BP 157/93
[2019-12-23] MEDS: IPRATROPIUM BROM 0.5 MG/2.5ML INH SOL NEB SCH ×4 (00:18→18:13)
[2019-12-23] MEDS: ALBUTEROL SULF 2.5 MG/0.5ML(0.5%) NEB SOLN NEB SCH ×4 (00:18→18:13)
[2019-12-23 02:06] VITALS: BP 157/93
[2019-12-23 05:17] VITALS: BP 151/87
[2019-12-23] MEDS: hydrALAZINE HCL 25 MG TAB PO SCH ×3 (06:00→21:30)
[2019-12-23] MEDS: FUROSEMIDE 40 MG/4 ML VIAL IV SCH ×2 (06:00→18:30)
[2019-12-23] MEDS: ACCU-CHEK COMFORT CURVE STRIP VI SCH ×4 (06:30→21:31)
[2019-12-23] MEDS: InsuLIN REG 1unit/0.01ml Soln (100units/ml) SC SCH ×4 (06:30→21:34)
[2019-12-23] MEDS ORDERED: SODIUM CHL 0.9% 1000 ML BAG XX ONE (07:00)
[2019-12-23] MEDS: CALCIUM ACETATE 667 MG CAP PO SCH ×3 (08:00→18:00)
[2019-12-23 09:00] VITALS: BP 157/100
[2019-12-23] MEDS: DOCUSATE SOD 100 MG CAP PO SCH (10:00)
[2019-12-23] MEDS: METOPROLOL SUCCINATE XL 50 MG TAB PO SCH (10:00)
[2019-12-23] MEDS: ISOSORBIDE MONONITRATE ER 60 MG TAB PO SCH (10:00)
[2019-12-23] MEDS: TICAGRELOR 90 MG TAB PO SCH ×2 (10:00→21:31)
[2019-12-23] MEDS: amLODIPine BESYLATE 5 MG TAB PO SCH (10:00)
[2019-12-23] MEDS: ASPirin-EC 81 mg tab PO SCH (10:00)
[2019-12-23] MEDS: ENOXAPARIN SOD 30 MG/0.3 ML SYRINGE SC SCH (10:00)
[2019-12-23 12:06] LABS: Calcium 8.2 mg/dL (8.5-10.1)
[2019-12-23 12:08] LABS: BUN/Creatinine Ratio 8.4
[2019-12-23 12:17] LABS: Potassium 6.4 mmol/L (3.5-5.1)
[2019-12-23 13:00] VITALS: BP 152/96
[2019-12-23] MEDS ORDERED: SODIUM BICARBONATE 8.4% INJ 50ML SYRINGE IV ONE (13:30)
[2019-12-23] MEDS ORDERED: CALCIUM GLUC 4.65meq/50ml D5AE 50 ML IV ONE (13:30)
[2019-12-23] MEDS ORDERED: ALBUTEROL SULF 2.5 MG/0.5ML(0.5%) NEB SOLN NEB ONE (13:30)
[2019-12-23] MEDS ORDERED: SODIUM ZIRCONIUM CYCL 10 GM PAK PO ONE (13:30)
[2019-12-23] MEDS: SODIUM ZIRCONIUM CYCL 10 GM PAK PO SCH ×2 (15:11→21:31)
[2019-12-23 17:00] VITALS: BP 163/97
[2019-12-23] MEDS: ATORVASTATIN 20 MG TAB PO SCH (21:31)
[2019-12-23] MEDS: HYDROcodone-ACET 5/325MG TAB PO PRN (21:32)
[2019-12-23 22:00] VITALS: BP 141/87
[2019-12-23] MEDS: LORazepam 0.5 MG TAB PO PRN (23:39)
[2019-12-24] MEDS: IPRATROPIUM BROM 0.5 MG/2.5ML INH SOL NEB SCH ×5 (00:06→23:28)
[2019-12-24] MEDS: ALBUTEROL SULF 2.5 MG/0.5ML(0.5%) NEB SOLN NEB SCH ×5 (00:07→23:27)
[2019-12-24 05:00] VITALS: BP_SYST 147
[2019-12-24 05:39] LABS: BUN/Creatinine Ratio 6.8; Calcium 7.8 mg/dL (8.5-10.1); Potassium 5.1 mmol/L (3.5-5.1)
[2019-12-24] MEDS: FUROSEMIDE 40 MG/4 ML VIAL IV SCH ×2 (06:26→17:39)
[2019-12-24] MEDS: hydrALAZINE HCL 25 MG TAB PO SCH ×3 (06:26→22:07)
[2019-12-24] MEDS: InsuLIN REG 1unit/0.01ml Soln (100units/ml) SC SCH ×4 (06:27→22:00)
[2019-12-24] MEDS: ACCU-CHEK COMFORT CURVE STRIP VI SCH ×4 (06:27→22:08)
[2019-12-24] MEDS: SODIUM ZIRCONIUM CYCL 10 GM PAK PO SCH (06:27)
[2019-12-24] MEDS: CALCIUM ACETATE 667 MG CAP PO SCH ×3 (08:32→17:41)
[2019-12-24 09:00] VITALS: BP 149/94
[2019-12-24] MEDS: TICAGRELOR 90 MG TAB PO SCH ×2 (09:32→22:07)
[2019-12-24] MEDS: ASPirin-EC 81 mg tab PO SCH (09:33)
[2019-12-24] MEDS: DOCUSATE SOD 100 MG CAP PO SCH (09:33)
[2019-12-24] MEDS: ISOSORBIDE MONONITRATE ER 60 MG TAB PO SCH (09:34)
[2019-12-24] MEDS: amLODIPine BESYLATE 5 MG TAB PO SCH (09:34)
[2019-12-24] MEDS: METOPROLOL SUCCINATE XL 50 MG TAB PO SCH (09:35)
[2019-12-24] MEDS: ENOXAPARIN SOD 30 MG/0.3 ML SYRINGE SC SCH (09:35)
[2019-12-24 13:00] VITALS: BP 147/99
[2019-12-24 17:00] VITALS: BP 144/99
[2019-12-24 22:00] VITALS: BP 150/88
[2019-12-24] MEDS: ATORVASTATIN 20 MG TAB PO SCH (22:07)
[2019-12-25] MEDS: LORazepam 0.5 MG TAB PO PRN (03:15)
[2019-12-25 05:00] VITALS: BP 151/88
[2019-12-25 05:40] LABS: Basophils # (auto) 0.1 10 ^3/uL (0-0.2); Basophils % (auto) 1.5 % (0.0-2.0); Eosinophils # (auto) 0.2 10 ^3/uL (0-0.8); Eosinophils % (auto) 5.8 % (0.0-7.0); Hematocrit 28.7 % (41.0-53.0); Hemoglobin 9.7 g/dL (13.5-17.5); Lymphocytes # (auto) 0.5 10 ^3/uL (0.4-5.4); Lymphocytes % (auto) 14.6 % (10.0-50.0); Mean Corpuscular Hemoglobin 32.4 pg (28.0-32.0); Mean Corpuscular Hgb Conc. 33.7 g/dL (32.0-36.0); Monocytes # (auto) 0.4 10 ^3/uL (0-1.3); Monocytes % (auto) 10.8 % (0.0-12.0); Neutrophils # (auto) 2.4 10 ^3/uL (1.6-8.6); Neutrophils % (auto) 67.3 % (37.0-80.0); Platelet Count (auto) 143 10^3/uL (140-450); Red Blood Cells 2.99 10^6/uL (4.5-5.90); Red Cell Distribution Width 15.4 % (11.8-14.3); White Blood Cell 3.6 10^3/uL (4.4-10.8)
[2019-12-25 06:00] LABS: Potassium 5.1 mmol/L (3.5-5.1)
[2019-12-25] MEDS: FUROSEMIDE 40 MG/4 ML VIAL IV SCH ×2 (06:00→17:55)
[2019-12-25] MEDS: hydrALAZINE HCL 25 MG TAB PO SCH ×3 (06:00→21:50)
[2019-12-25 06:04] LABS: BUN/Creatinine Ratio 7.6; Calcium 8.2 mg/dL (8.5-10.1)
[2019-12-25] MEDS: ALBUTEROL SULF 2.5 MG/0.5ML(0.5%) NEB SOLN NEB SCH ×3 (06:08→18:37)
[2019-12-25] MEDS: IPRATROPIUM BROM 0.5 MG/2.5ML INH SOL NEB SCH ×3 (06:08→18:38)
[2019-12-25] MEDS: InsuLIN REG 1unit/0.01ml Soln (100units/ml) SC SCH ×4 (06:24→22:39)
[2019-12-25] MEDS: ACCU-CHEK COMFORT CURVE STRIP VI SCH ×4 (06:24→21:50)
[2019-12-25] MEDS ORDERED: SODIUM CHL 0.9% 1000 ML BAG XX ONE (07:00)
[2019-12-25] MEDS: CALCIUM ACETATE 667 MG CAP PO SCH ×3 (08:00→18:03)
[2019-12-25] MEDS: DEXTROSE (50%) 50ML SYRG IV PRN (08:02)
[2019-12-25 09:00] VITALS: BP 153/89
[2019-12-25] MEDS: ASPirin-EC 81 mg tab PO SCH (10:00)
[2019-12-25] MEDS: TICAGRELOR 90 MG TAB PO SCH ×2 (10:00→21:47)
[2019-12-25] MEDS: ENOXAPARIN SOD 30 MG/0.3 ML SYRINGE SC SCH (10:00)
[2019-12-25] MEDS: DOCUSATE SOD 100 MG CAP PO SCH (10:00)
[2019-12-25] MEDS: METOPROLOL SUCCINATE XL 50 MG TAB PO SCH (10:00)
[2019-12-25] MEDS: amLODIPine BESYLATE 5 MG TAB PO SCH (10:00)
[2019-12-25] MEDS: ISOSORBIDE MONONITRATE ER 60 MG TAB PO SCH (10:00)
[2019-12-25 13:00] VITALS: BP 155/89
[2019-12-25 17:00] VITALS: BP 162/97
[2019-12-25] MEDS: ATORVASTATIN 20 MG TAB PO SCH (21:48)
[2019-12-25] MEDS: HYDROcodone-ACET 5/325MG TAB PO PRN (21:49)
[2019-12-25 22:41] VITALS: BP 154/87
[2019-12-26] MEDS: IPRATROPIUM BROM 0.5 MG/2.5ML INH SOL NEB SCH ×4 (00:55→18:36)
[2019-12-26] MEDS: ALBUTEROL SULF 2.5 MG/0.5ML(0.5%) NEB SOLN NEB SCH ×4 (00:55→18:36)
[2019-12-26 05:19] VITALS: BP 152/93
[2019-12-26] MEDS: InsuLIN REG 1unit/0.01ml Soln (100units/ml) SC SCH ×4 (06:23→22:00)
[2019-12-26] MEDS: ACCU-CHEK COMFORT CURVE STRIP VI SCH ×4 (06:23→23:05)
[2019-12-26] MEDS: FUROSEMIDE 40 MG/4 ML VIAL IV SCH (06:28)
[2019-12-26] MEDS: hydrALAZINE HCL 25 MG TAB PO SCH ×3 (06:29→22:19)
[2019-12-26] MEDS: CALCIUM ACETATE 667 MG CAP PO SCH ×3 (07:50→18:28)
[2019-12-26 09:00] VITALS: BP 142/81
[2019-12-26] MEDS: ASPirin-EC 81 mg tab PO SCH (10:18)
[2019-12-26] MEDS: ENOXAPARIN SOD 30 MG/0.3 ML SYRINGE SC SCH (10:18)
[2019-12-26] MEDS: DOCUSATE SOD 100 MG CAP PO SCH (10:18)
[2019-12-26] MEDS: ISOSORBIDE MONONITRATE ER 60 MG TAB PO SCH (10:19)
[2019-12-26] MEDS: amLODIPine BESYLATE 5 MG TAB PO SCH (10:20)
[2019-12-26] MEDS: METOPROLOL SUCCINATE XL 50 MG TAB PO SCH (10:21)
[2019-12-26] MEDS: TICAGRELOR 90 MG TAB PO SCH ×2 (10:21→22:18)
[2019-12-26 13:00] VITALS: BP 149/90
[2019-12-26] MEDS: DEXTROSE (50%) 50ML SYRG IV PRN (14:03)
[2019-12-26] MEDS ORDERED: D5W 5% 1,000 ML IV SCH (14:15)
[2019-12-26] MEDS: D5W/SOD CHLO 0.9% 1,000 ML IV SCH (15:00)
[2019-12-26 17:00] VITALS: BP 141/87
[2019-12-26] MEDS: ONDANSETRON HCL 4 MG/2 ML VIAL IV PRN (17:00)
[2019-12-26 17:26] LABS: BUN/Creatinine Ratio 6.9; Calcium 8.7 mg/dL (8.5-10.1)
[2019-12-26 17:47] LABS: Potassium 5.8 mmol/L (3.5-5.1)
[2019-12-26] MEDS ORDERED: SODIUM ZIRCONIUM CYCL 10 GM PAK PO ONE (18:15)
[2019-12-26] MEDS ORDERED: CALCIUM GLUC 4.65meq/50ml D5AE 50 ML IV ONE (18:15)
[2019-12-26] MEDS ORDERED: ACETAMINOPHEN 325 MG TAB PO PRN (18:15)
[2019-12-26 22:00] VITALS: BP 146/86
[2019-12-26] MEDS: ATORVASTATIN 20 MG TAB PO SCH (22:18)
[2019-12-27] MEDS: ALBUTEROL SULF 2.5 MG/0.5ML(0.5%) NEB SOLN NEB SCH ×4 (00:31→18:35)
[2019-12-27] MEDS: IPRATROPIUM BROM 0.5 MG/2.5ML INH SOL NEB SCH ×4 (00:31→18:35)
[2019-12-27 03:11] LABS: Urine Bacteria FEW /hpf (None Seen); Urine Blood Negative /uL (Negative); Urine Specific Gravity 1.009 (1.001-1.035); Urine Sperm PRESENT /hpf (None Seen); Urine WBC 3 /hpf (0 - 3)
[2019-12-27] MEDS: ONDANSETRON HCL 4 MG/2 ML VIAL IV PRN (03:22)
[2019-12-27 04:06] VITALS: BP 146/86
[2019-12-27 05:00] VITALS: BP 160/89
[2019-12-27] MEDS: hydrALAZINE HCL 25 MG TAB PO SCH ×3 (06:19→22:38)
[2019-12-27] MEDS: ACCU-CHEK COMFORT CURVE STRIP VI SCH ×4 (06:22→22:00)
[2019-12-27] MEDS: InsuLIN REG 1unit/0.01ml Soln (100units/ml) SC SCH ×4 (06:22→22:00)
[2019-12-27 06:25] LABS: Basophils # (auto) 0 10 ^3/uL (0-0.2); Eosinophils # (auto) 0.3 10 ^3/uL (0-0.8); Eosinophils % (auto) 5.2 % (0.0-7.0); Hemoglobin 9.2 g/dL (13.5-17.5); Lymphocytes # (auto) 0.5 10 ^3/uL (0.4-5.4); Lymphocytes % (auto) 9.5 % (10.0-50.0); Mean Corpuscular Hemoglobin 32.6 pg (28.0-32.0); Mean Corpuscular Volume 95.9 fL (80.0-100.0); Monocytes # (auto) 0.4 10 ^3/uL (0-1.3); Monocytes % (auto) 8.9 % (0.0-12.0); Neutrophils # (auto) 3.8 10 ^3/uL (1.6-8.6); Neutrophils % (auto) 75.4 % (37.0-80.0); Platelet Count (auto) 149 10^3/uL (140-450); Red Blood Cells 2.82 10^6/uL (4.5-5.90); Red Cell Distribution Width 14.9 % (11.8-14.3); White Blood Cell 5.1 10^3/uL (4.4-10.8)
[2019-12-27 06:34] LABS: INR 1.07 (0.9-1.15); Partial Thromboplastin Time 29.1 sec (23.0-31.2)
[2019-12-27 06:37] LABS: Calcium 8.8 mg/dL (8.5-10.1); Potassium 5.4 mmol/L (3.5-5.1)
[2019-12-27 06:40] LABS: BUN/Creatinine Ratio 7.3
[2019-12-27] MEDS ORDERED: SODIUM CHL 0.9% 1000 ML BAG XX ONE (07:00)
[2019-12-27] MEDS: CALCIUM ACETATE 667 MG CAP PO SCH ×3 (08:00→17:29)
[2019-12-27 09:00] VITALS: BP 161/93
[2019-12-27] MEDS: TICAGRELOR 90 MG TAB PO SCH ×2 (10:00→22:37)
[2019-12-27] MEDS: DOCUSATE SOD 100 MG CAP PO SCH (10:00)
[2019-12-27] MEDS: ASPirin-EC 81 mg tab PO SCH (10:00)
[2019-12-27] MEDS: ENOXAPARIN SOD 30 MG/0.3 ML SYRINGE SC SCH (10:00)
[2019-12-27] MEDS: D5W/SOD CHLO 0.9% 1,000 ML IV SCH (10:15)
[2019-12-27] MEDS: amLODIPine BESYLATE 5 MG TAB PO SCH (10:19)
[2019-12-27] MEDS: METOPROLOL SUCCINATE XL 50 MG TAB PO SCH (10:19)
[2019-12-27] MEDS: ISOSORBIDE MONONITRATE ER 60 MG TAB PO SCH (10:21)
[2019-12-27] MEDS ORDERED: D5W/SOD CHLO 0.9% 1,000 ML IV SCH (12:15)
[2019-12-27 13:00] VITALS: BP 164/93
[2019-12-27 16:42] VITALS: BP 138/88
[2019-12-27] MEDS ORDERED: EPOETIN ALFA 10,000 UNIT/1 ML VIAL SC ONE (21:00)
[2019-12-27 22:00] VITALS: BP 129/85
[2019-12-27] MEDS: ATORVASTATIN 20 MG TAB PO SCH (22:00)
[2019-12-28] MEDS: IPRATROPIUM BROM 0.5 MG/2.5ML INH SOL NEB SCH ×4 (00:23→18:30)
[2019-12-28] MEDS: ALBUTEROL SULF 2.5 MG/0.5ML(0.5%) NEB SOLN NEB SCH ×4 (00:23→18:30)
[2019-12-28 05:00] VITALS: BP 145/87
[2019-12-28] MEDS: hydrALAZINE HCL 25 MG TAB PO SCH ×3 (06:00→21:54)
[2019-12-28 06:21] LABS: Basophils # (auto) 0.1 10 ^3/uL (0-0.2); Basophils % (auto) 1.4 % (0.0-2.0); Eosinophils # (auto) 0.3 10 ^3/uL (0-0.8); Eosinophils % (auto) 5.9 % (0.0-7.0); Hematocrit 28.3 % (41.0-53.0); Hemoglobin 9.6 g/dL (13.5-17.5); Lymphocytes # (auto) 0.5 10 ^3/uL (0.4-5.4); Lymphocytes % (auto) 11.1 % (10.0-50.0); Mean Corpuscular Hemoglobin 32.6 pg (28.0-32.0); Mean Corpuscular Volume 95.8 fL (80.0-100.0); Monocytes # (auto) 0.4 10 ^3/uL (0-1.3); Monocytes % (auto) 9.5 % (0.0-12.0); Neutrophils # (auto) 3.3 10 ^3/uL (1.6-8.6); Neutrophils % (auto) 72.1 % (37.0-80.0); Nucleated Red Blood Cells % 0.1 %; Platelet Count (auto) 162 10^3/uL (140-450); Red Blood Cells 2.95 10^6/uL (4.5-5.90); Red Cell Distribution Width 14.7 % (11.8-14.3); White Blood Cell 4.6 10^3/uL (4.4-10.8)
[2019-12-28 06:41] LABS: INR 1.05 (0.9-1.15); Partial Thromboplastin Time 27.7 sec (23.0-31.2)
[2019-12-28 06:43] LABS: BUN/Creatinine Ratio 6.3
[2019-12-28] MEDS: InsuLIN REG 1unit/0.01ml Soln (100units/ml) SC SCH ×4 (06:43→21:57)
[2019-12-28] MEDS: ACCU-CHEK COMFORT CURVE STRIP VI SCH ×4 (06:43→21:57)
[2019-12-28 06:51] LABS: Potassium 5.7 mmol/L (3.5-5.1)
[2019-12-28] MEDS ORDERED: VANCOMYCIN 1GM/250ML 250 ML IV ONE (07:29)
[2019-12-28] MEDS: CALCIUM ACETATE 667 MG CAP PO SCH ×3 (08:00→18:16)
[2019-12-28] MEDS ORDERED: VANCOMYCIN HCL 1000 MG VL ONE (08:25)
[2019-12-28] MEDS ORDERED: MIDAZOLAM HCL 1MG/1ML-2 ML VIAL ONE ×2 (08:26→08:59)
[2019-12-28] MEDS ORDERED: LIDOCAINE 2%HCL (LOCAL ANESTH.) INJ 20ML MDV ONE ×2 (08:26→09:00)
[2019-12-28] MEDS ORDERED: fentaNYL CITRATE 100 MCG/2 ML VL ONE (08:26)
[2019-12-28] MEDS ORDERED: IOHEXOL 350 MG/ML 100ML IJ ONE (08:53)
[2019-12-28] MEDS ORDERED: diphenhdrAMINE HCL 50 MG/1 ML VL ONE (08:58)
[2019-12-28] MEDS ORDERED: FUROSEMIDE 20 MG/2 ML VIAL ONE ×2 (09:48→10:11)
[2019-12-28] MEDS ORDERED: GELATIN 1 SPONGE SIZE 50 TOP ONE ×2 (09:51→10:09)
[2019-12-28] MEDS: amLODIPine BESYLATE 5 MG TAB PO SCH (10:00)
[2019-12-28] MEDS: ISOSORBIDE MONONITRATE ER 60 MG TAB PO SCH (10:00)
[2019-12-28] MEDS: DOCUSATE SOD 100 MG CAP PO SCH (10:00)
[2019-12-28] MEDS: ENOXAPARIN SOD 30 MG/0.3 ML SYRINGE SC SCH (10:00)
[2019-12-28] MEDS: ASPirin-EC 81 mg tab PO SCH (10:00)
[2019-12-28] MEDS: TICAGRELOR 90 MG TAB PO SCH (10:00)
[2019-12-28] MEDS: METOPROLOL SUCCINATE XL 50 MG TAB PO SCH (10:00)
[2019-12-28] MEDS ORDERED: LIDOCAINE W/ EPINEPHRINE 2% INJ 20ML VIAL ONE (10:10)
[2019-12-28] MEDS: ceFAZolin 1GM/50ML 50 ML IV SCH ×3 (12:15→22:03)
[2019-12-28 12:31] VITALS: BP 133/78
[2019-12-28] MEDS: HYDROcodone-ACET 5/325MG TAB PO PRN ×2 (13:36→20:18)
[2019-12-28] MEDS ORDERED: SODIUM ZIRCONIUM CYCL 10 GM PAK PO ONE (14:30)
[2019-12-28] MEDS: MORPHINE SULF INJ 2 MG/ML SYRINGE 1ML IV PRN ×3 (15:00→23:18)
[2019-12-28 16:51] VITALS: BP 151/84
[2019-12-28] MEDS: ATORVASTATIN 20 MG TAB PO SCH (21:54)
[2019-12-28 22:00] VITALS: BP 157/90
[2019-12-28] MEDS ORDERED: KETOROLAC TROMETH 30 MG/ML 1ML VIAL IV ONE (23:00)
[2019-12-29] MEDS: IPRATROPIUM BROM 0.5 MG/2.5ML INH SOL NEB SCH ×4 (00:45→18:49)
[2019-12-29] MEDS: ALBUTEROL SULF 2.5 MG/0.5ML(0.5%) NEB SOLN NEB SCH ×4 (00:45→18:49)
[2019-12-29] MEDS: MORPHINE SULF INJ 2 MG/ML SYRINGE 1ML IV PRN ×2 (04:00→11:30)
[2019-12-29 05:00] VITALS: BP 165/96
[2019-12-29 05:23] LABS: Hemoglobin 8.2 g/dL (13.5-17.5)
[2019-12-29 05:34] LABS: Calcium 8.9 mg/dL (8.5-10.1); Potassium 5.5 mmol/L (3.5-5.1)
[2019-12-29 05:36] LABS: BUN/Creatinine Ratio 6.6
[2019-12-29] MEDS: hydrALAZINE HCL 25 MG TAB PO SCH ×3 (06:00→22:00)
[2019-12-29] MEDS: ACCU-CHEK COMFORT CURVE STRIP VI SCH ×4 (06:24→22:01)
[2019-12-29] MEDS: InsuLIN REG 1unit/0.01ml Soln (100units/ml) SC SCH ×4 (06:24→22:00)
[2019-12-29] MEDS: HYDROcodone-ACET 5/325MG TAB PO PRN ×2 (06:39→21:19)
[2019-12-29] MEDS ORDERED: SODIUM CHL 0.9% 1000 ML BAG XX ONE (07:00)
[2019-12-29 09:00] VITALS: BP 143/91
[2019-12-29] MEDS ORDERED: NIFE90TA49 PO (09:21)
[2019-12-29] MEDS: DOCUSATE SOD 100 MG CAP PO SCH (09:57)
[2019-12-29] MEDS: CALCIUM ACETATE 667 MG CAP PO SCH ×3 (09:57→18:01)
[2019-12-29] MEDS: ISOSORBIDE MONONITRATE ER 60 MG TAB PO SCH (09:57)
[2019-12-29] MEDS: NIFEdipine ER 30 MG TAB PO SCH (09:58)
[2019-12-29] MEDS: METOPROLOL SUCCINATE XL 50 MG TAB PO SCH (09:58)
[2019-12-29] MEDS ORDERED: diphenhdrAMINE HCL 50 MG/1 ML VL IV PRN (12:15)
[2019-12-29 13:15] VITALS: BP 126/82
[2019-12-29] MEDS ORDERED: LACTULOSE 20Gm/30ML SOLN PO ONE ×2 (14:45→22:00)
[2019-12-29] MEDS ORDERED: METOPROLOL SUCCINATE XL 50 MG TAB PO ONE (15:00)
[2019-12-29 17:00] VITALS: BP 152/92
[2019-12-29] MEDS ORDERED: EPOETIN ALFA 10,000 UNIT/1 ML VIAL SC ONE (21:00)
[2019-12-29 22:00] VITALS: BP 124/79
[2019-12-29] MEDS: ATORVASTATIN 20 MG TAB PO SCH (22:01)
[2019-12-30] MEDS: IPRATROPIUM BROM 0.5 MG/2.5ML INH SOL NEB SCH ×3 (00:47→12:22)
[2019-12-30] MEDS: ALBUTEROL SULF 2.5 MG/0.5ML(0.5%) NEB SOLN NEB SCH ×3 (00:47→12:23)
[2019-12-30 01:18] VITALS: BP 124/79
[2019-12-30] MEDS: HYDROcodone-ACET 5/325MG TAB PO PRN (04:08)
[2019-12-30 05:00] VITALS: BP 123/74
[2019-12-30] MEDS: hydrALAZINE HCL 25 MG TAB PO SCH ×2 (06:12→14:00)
[2019-12-30] MEDS: InsuLIN REG 1unit/0.01ml Soln (100units/ml) SC SCH ×2 (06:37→12:10)
[2019-12-30] MEDS: ACCU-CHEK COMFORT CURVE STRIP VI SCH ×2 (06:38→12:10)
[2019-12-30 07:00] LABS: Basophils # (auto) 0.1 10 ^3/uL (0-0.2); Basophils % (auto) 1.1 % (0.0-2.0); Eosinophils # (auto) 0.2 10 ^3/uL (0-0.8); Eosinophils % (auto) 3.2 % (0.0-7.0); Hemoglobin 7.8 g/dL (13.5-17.5); Lymphocytes # (auto) 0.6 10 ^3/uL (0.4-5.4); Monocytes # (auto) 0.6 10 ^3/uL (0-1.3); Neutrophils # (auto) 4.9 10 ^3/uL (1.6-8.6); Red Blood Cells 2.36 10^6/uL (4.5-5.90); Red Cell Distribution Width 14.6 % (11.8-14.3); White Blood Cell 6.4 10^3/uL (4.4-10.8)
[2019-12-30 07:03] LABS: Potassium 5.2 mmol/L (3.5-5.1)
[2019-12-30 07:03] LABS: Hematocrit 22.4 % (41.0-53.0); Mean Corpuscular Hemoglobin 33.3 pg (28.0-32.0); Monocytes % (auto) 9.2 % (0.0-12.0); Neutrophils % (auto) 76.5 % (37.0-80.0); Nucleated Red Blood Cells % 0.2 %; Platelet Count (auto) 167 10^3/uL (140-450)
[2019-12-30 07:05] LABS: BUN/Creatinine Ratio 6.5
[2019-12-30] MEDS: CALCIUM ACETATE 667 MG CAP PO SCH ×2 (09:00→12:11)
[2019-12-30] MEDS: NIFEdipine ER 30 MG TAB PO SCH (09:00)
[2019-12-30] MEDS: DOCUSATE SOD 100 MG CAP PO SCH (09:00)
[2019-12-30 09:01] VITALS: BP 139/77
[2019-12-30] MEDS: ISOSORBIDE MONONITRATE ER 60 MG TAB PO SCH (09:01)
[2019-12-30] MEDS ORDERED: METOPROLOL SUCCINATE XL 50 MG TAB PO SCH (10:00)
[2019-12-30] MEDS ORDERED: FER325T PO (10:28)
[2019-12-30] MEDS ORDERED: BISA-13 PO (10:28)
[2019-12-30] MEDS ORDERED: METO-6 PO (10:29)
[2019-12-30] MEDS ORDERED: SODIUM ZIRCONIUM CYCL 10 GM PAK PO ONE (10:30)
[2019-12-30] MEDS ORDERED: LACTULOSE 20Gm/30ML SOLN PO ONE (10:30)
[2019-12-30 11:37] LABS: Hematocrit 24.7 % (41.0-53.0); Hemoglobin 8.4 g/dL (13.5-17.5)
[2019-12-30 12:28] VITALS: BP 139/77
[2019-12-30 12:53] VITALS: BP 136/79
== END 2019-12-30 15:27 | disposition home or self-care (01) | DRG 161 ==
LOC: ER 10:26 → TELE 10:27 → TELE-WESTW 21:28
PROVIDERS: ADMIT Hospitalist; ATTEND Internal Medicine
PROC: 5A1D70Z Performance of Urinary Filtration, Intermittent, Less than 6 Hours Per Day (ICD-10-PCS; 2019-12-21)
PROC: 5A1D70Z Performance of Urinary Filtration, Intermittent, Less than 6 Hours Per Day (ICD-10-PCS; 2019-12-23)
PROC: 5A1D70Z Performance of Urinary Filtration, Intermittent, Less than 6 Hours Per Day (ICD-10-PCS; 2019-12-25)
PROC: 5A1D70Z Performance of Urinary Filtration, Intermittent, Less than 6 Hours Per Day (ICD-10-PCS; 2019-12-27)
PROC: 0JH609Z Insertion of Cardiac Resynchronization Defibrillator Pulse Generator into Chest Subcutaneous Tissue and Fascia, Open Approach (ICD-10-PCS; principal; 2019-12-28)
PROC: 02HK3KZ Insertion of Defibrillator Lead into Right Ventricle, Percutaneous Approach (ICD-10-PCS; 2019-12-28)
PROC: 02HL3KZ Insertion of Defibrillator Lead into Left Ventricle, Percutaneous Approach (ICD-10-PCS; 2019-12-28)
PROC: 02H63KZ Insertion of Defibrillator Lead into Right Atrium, Percutaneous Approach (ICD-10-PCS; 2019-12-28)
PROC: 5A1D70Z Performance of Urinary Filtration, Intermittent, Less than 6 Hours Per Day (ICD-10-PCS; 2019-12-29)
DX: I13.2 Hypertensive heart and chronic kidney disease with heart failure and with stage 5 chronic kidney disease, or end stage renal disease (principal); I25.5 Ischemic cardiomyopathy; I25.10 Atherosclerotic heart disease of native coronary artery without angina pectoris; I50.43 Acute on chronic combined systolic (congestive) and diastolic (congestive) heart failure; N18.6 End stage renal disease; I16.9 Hypertensive crisis, unspecified; E87.5 Hyperkalemia; E11.21 Type 2 diabetes mellitus with diabetic nephropathy; E11.40 Type 2 diabetes mellitus with diabetic neuropathy, unspecified; D63.8 Anemia in other chronic diseases classified elsewhere; E87.6 Hypokalemia; E83.39 Other disorders of phosphorus metabolism; E11.22 Type 2 diabetes mellitus with diabetic chronic kidney disease; F32.9 Major depressive disorder, single episode, unspecified; M70.72 Other bursitis of hip, left hip; M16.12 Unilateral primary osteoarthritis, left hip; E11.649 Type 2 diabetes mellitus with hypoglycemia without coma; F17.210 Nicotine dependence, cigarettes, uncomplicated; E78.5 Hyperlipidemia, unspecified; D17.9 Benign lipomatous neoplasm, unspecified; I25.2 Old myocardial infarction; Z99.2 Dependence on renal dialysis; Z79.4 Long term (current) use of insulin; Z79.02 Long term (current) use of antithrombotics/antiplatelets; Z79.899 Other long term (current) drug therapy; Z82.49 Family history of ischemic heart disease and other diseases of the circulatory system; Z83.3 Family history of diabetes mellitus; Z95.5 Presence of coronary angioplasty implant and graft
CPT/HCPCS: 33249; 36415; 36600; 71045; 73700; 78452; 80048; 80053; 81001; 82805; 82962; 83036; 83735; 83880; 84132; 84443; 84484; 85014; 85018; 85025; 85610; 85730; 86850; 86900; 86901; 90935; 93005; 93017; 93306; 94640; 96374; 96375; 97163; 99152; 99153; C1769; G0378; J0153; J0610; J0690; J0885; J1642; J1815; J2250; J2405; J3490; J7042

== ENCOUNTER → 2020-01-16 | Outpatient (CLI) | payer MEDICAID ==
[~2020-01-16] MED LIST changes: +AMLO10TA13 PO; -AMLO5TAB15 PO; +B-CO-5 PO; +BACITRACIN TOP OINT 1 UD PKG TOP ONE; +BISA-13 PO; +FER325T PO; +INSLISPI SC; -INSREG3 SC; -LISI40TA11 PO; -METO-169 PO; +METO-6 PO; +NIFE90TA49 PO
== END | disposition home or self-care (01) ==
LOC: CHF HDHVI 10:42
PROVIDERS: ATTEND Internal Medicine Cardiovascular Disease
DX: I25.10 Atherosclerotic heart disease of native coronary artery without angina pectoris (principal); I50.9 Heart failure, unspecified; E11.22 Type 2 diabetes mellitus with diabetic chronic kidney disease; N18.6 End stage renal disease
CPT/HCPCS: G0463

== ENCOUNTER → 2020-01-18 | Outpatient (CLI) | payer MEDICAID, MEDICARE ==
[~2020-01-18] MED LIST changes: -BACITRACIN TOP OINT 1 UD PKG TOP ONE
[2020-01-18 13:15] VITALS: BP 135/85
[2020-01-18 13:35] VITALS: BP 135/85
== END | disposition home or self-care (01) ==
LOC: CHF HDHVI 13:24
PROVIDERS: ATTEND Internal Medicine Cardiovascular Disease
DX: E10.8 Type 1 diabetes mellitus with unspecified complications (principal); Z95.0 Presence of cardiac pacemaker
CPT/HCPCS: G0463

== ENCOUNTER → 2020-01-25 | Outpatient (CLI) | payer MEDICAID, MEDICARE ==
[2020-01-25 12:18] VITALS: BP 158/96
[2020-01-25 12:28] VITALS: BP 158/96
== END | disposition home or self-care (01) ==
LOC: CHF HDHVI 13:18
PROVIDERS: ATTEND Internal Medicine Cardiovascular Disease
DX: E11.22 Type 2 diabetes mellitus with diabetic chronic kidney disease (principal); N18.6 End stage renal disease; E85.3 Secondary systemic amyloidosis; Z95.0 Presence of cardiac pacemaker
CPT/HCPCS: G0463

== ENCOUNTER → 2020-02-01 | Outpatient (CLI) | payer MEDICAID, MEDICARE ==
[2020-02-01 09:38] VITALS: BP 173/93
--- NOTE | 2020-02-01 09:38 | NUR ---
PATIENT IN FOR SCHEDULED DRESSING CHANGE, AAOx4, AMBULATORY, BREATHING EVEN AND UNLABORED.
--- NOTE | 2020-02-01 10:00 | NUR ---
SURGICAL INCISION WELL APPROXIMATED, THERA HONEY, NON-ADHERENT DRESSING, AND TEGADERM PLACED OVER INCISION. PATIENT EDUCATED ON HOME DRESSING CHANGES, PATIENT VERBALIZED UNDERSTANDING.
[2020-02-01 10:11] VITALS: BP 167/92
--- NOTE | 2020-02-01 10:11 | NUR ---
[facility] Discharge Instructions See e-MAR for any mediations given with this visit. Patient education given on disease process. Patient verbalized understanding. Previous labs reviewed. Patient discharged in stable condition with after care instructions and follow up appointment IN ONE WEEK. NOTE WOUND CARE DONE BY NIC ANTOINE.
== END | disposition home or self-care (01) ==
LOC: CHF HDHVI 09:38
PROVIDERS: ATTEND Internal Medicine Cardiovascular Disease
DX: E11.9 Type 2 diabetes mellitus without complications (principal); Z95.0 Presence of cardiac pacemaker
CPT/HCPCS: G0463

== ENCOUNTER → 2020-02-08 | Outpatient (CLI) | payer MEDICAID, MEDICARE ==
[2020-02-08 15:04] VITALS: BP 138/87
[2020-02-08 15:24] VITALS: BP 138/86
== END | disposition home or self-care (01) ==
LOC: CHF HDHVI 14:59
PROVIDERS: ATTEND Internal Medicine Cardiovascular Disease
DX: E11.22 Type 2 diabetes mellitus with diabetic chronic kidney disease (principal); N18.6 End stage renal disease; Z95.0 Presence of cardiac pacemaker; Z98.890 Other specified postprocedural states
CPT/HCPCS: G0463

== ENCOUNTER 2020-02-15 12:16 | Emergency (ER) | payer MEDICAID, MEDICARE ==
[~2020-02-15] VITALS: Ht 172.7 cm; Wt 81.6 kg
[2020-02-15] MEDS ORDERED: cloNIDine HCL 0.1 MG TAB PO ONE (13:00)
[2020-02-15 13:12] LABS: Basophils # (auto) 0.1 10 ^3/uL (0-0.2); Basophils % (auto) 1.3 % (0.0-2.0); Eosinophils # (auto) 0.3 10 ^3/uL (0-0.8); Hematocrit 37.2 % (41.0-53.0); Hemoglobin 12.8 g/dL (13.5-17.5); Lymphocytes # (auto) 0.8 10 ^3/uL (0.4-5.4); Lymphocytes % (auto) 17.4 % (10.0-50.0); Mean Corpuscular Hgb Conc. 34.5 g/dL (32.0-36.0); Mean Corpuscular Volume 95.6 fL (80.0-100.0); Monocytes # (auto) 0.4 10 ^3/uL (0-1.3); Neutrophils # (auto) 2.8 10 ^3/uL (1.6-8.6); Neutrophils % (auto) 64.3 % (37.0-80.0); Platelet Count (auto) 220 10^3/uL (140-450); Red Blood Cells 3.89 10^6/uL (4.5-5.90); Red Cell Distribution Width 15.5 % (11.8-14.3); White Blood Cell 4.3 10^3/uL (4.4-10.8)
[2020-02-15 13:32] LABS: Albumin 3.8 g/dL (3.4-5.0); Calcium 8.3 mg/dL (8.5-10.1); Potassium 4.5 mmol/L (3.5-5.1)
[2020-02-15 13:33] LABS: INR 1.05 (0.9-1.15); Partial Thromboplastin Time 27.2 sec (23.0-31.2)
[2020-02-15 13:39] LABS: Bilirubin, Total 0.6 mg/dL (0.2-1.0); Total Protein 7.5 g/dL (6.4-8.2)
[2020-02-15] MEDS ORDERED: hydrALAZINE HCL 20 MG/ML VL IV ONE (15:15)
[2020-02-15 17:26] VITALS: BP 214/102
== END 2020-02-15 17:39 | disposition home or self-care (01) ==
LOC: ER 12:16
DX: R07.89 Other chest pain (principal); E11.22 Type 2 diabetes mellitus with diabetic chronic kidney disease; I13.0 Hypertensive heart and chronic kidney disease with heart failure and stage 1 through stage 4 chronic kidney disease, or unspecified chronic kidney disease; N18.9 Chronic kidney disease, unspecified; I50.9 Heart failure, unspecified; I13.2 Hypertensive heart and chronic kidney disease with heart failure and with stage 5 chronic kidney disease, or end stage renal disease; N18.6 End stage renal disease; E78.5 Hyperlipidemia, unspecified; F17.210 Nicotine dependence, cigarettes, uncomplicated; I25.2 Old myocardial infarction; Z99.2 Dependence on renal dialysis
CPT/HCPCS: 36415; 71045; 80053; 83880; 84443; 84484; 85025; 85610; 85730; 93005; 96374; 99285; J0360

== ENCOUNTER 2020-05-19 17:52 | Emergency (ER) | payer MEDICAID ==
[~2020-05-19] VITALS: Ht 175.3 cm; Wt 77.1 kg
[~2020-05-19 17:52] MED LIST changes: +AMLO-496 PO; -AMLO10TA13 PO
[2020-05-19 19:12] LABS: Basophils # (auto) 0.1 10 ^3/uL (0-0.2); Basophils % (auto) 1.1 % (0.0-2.0); Eosinophils # (auto) 0.2 10 ^3/uL (0-0.8); Eosinophils % (auto) 5.2 % (0.0-7.0); Hematocrit 27.1 % (41.0-53.0); Hemoglobin 9.3 g/dL (13.5-17.5); Lymphocytes # (auto) 0.7 10 ^3/uL (0.4-5.4); Mean Corpuscular Hgb Conc. 34.4 g/dL (32.0-36.0); Mean Corpuscular Volume 93.1 fL (80.0-100.0); Monocytes # (auto) 0.4 10 ^3/uL (0-1.3); Neutrophils # (auto) 3.3 10 ^3/uL (1.6-8.6); Neutrophils % (auto) 70.7 % (37.0-80.0); Nucleated Red Blood Cells % 0.1 %; Platelet Count (auto) 230 10^3/uL (140-450); Red Blood Cells 2.91 10^6/uL (4.5-5.90); Red Cell Distribution Width 15.5 % (11.8-14.3); White Blood Cell 4.7 10^3/uL (4.4-10.8)
[2020-05-19 19:51] LABS: Potassium 4.9 mmol/L (3.5-5.1)
[2020-05-19 19:53] LABS: BUN/Creatinine Ratio 4.6
[2020-05-19 19:58] LABS: Bilirubin, Total 0.5 mg/dL (0.2-1.0); Total Protein 7.3 g/dL (6.4-8.2)
[2020-05-19 21:38] VITALS: BP 158/80
== END 2020-05-19 21:43 | disposition home or self-care (01) ==
LOC: ER 17:52
DX: R07.89 Other chest pain (principal); E11.22 Type 2 diabetes mellitus with diabetic chronic kidney disease; I13.2 Hypertensive heart and chronic kidney disease with heart failure and with stage 5 chronic kidney disease, or end stage renal disease; I50.9 Heart failure, unspecified; N18.6 End stage renal disease; E78.5 Hyperlipidemia, unspecified; I25.2 Old myocardial infarction; F17.210 Nicotine dependence, cigarettes, uncomplicated; F12.10 Cannabis abuse, uncomplicated
CPT/HCPCS: 36415; 71045; 80053; 83735; 84484; 85025; 93005

== ENCOUNTER 2020-11-17 12:24 | Inpatient (IN) | payer MEDICAID, MEDICARE ==
[~2020-11-17] VITALS: Ht 170.2 cm; Wt 79.9 kg
[2020-11-17] MEDS ORDERED: SODIUM CHLORIDE 0.9% 1,000 ML IV ONE (12:45)
[2020-11-17] MEDS ORDERED: ASPirin 81 mg TAB PO ONE (12:45)
[2020-11-17 14:12] LABS: Basophils # (auto) 0.1 10 ^3/uL (0-0.2); Basophils % (auto) 2.4 % (0.0-2.0); Eosinophils # (auto) 0.3 10 ^3/uL (0-0.8); Hematocrit 34.2 % (41.0-53.0); Hemoglobin 11.5 g/dL (13.5-17.5); Lymphocytes # (auto) 0.9 10 ^3/uL (0.4-5.4); Lymphocytes % (auto) 16.4 % (10.0-50.0); Mean Corpuscular Hemoglobin 32.8 pg (28.0-32.0); Mean Corpuscular Hgb Conc. 33.7 g/dL (32.0-36.0); Mean Corpuscular Volume 97.4 fL (80.0-100.0); Monocytes # (auto) 0.5 10 ^3/uL (0-1.3); Monocytes % (auto) 9.2 % (0.0-12.0); Neutrophils # (auto) 3.8 10 ^3/uL (1.6-8.6); Nucleated Red Blood Cells % 0.1 %; Red Blood Cells 3.52 10^6/uL (4.5-5.90); Red Cell Distribution Width 14.9 % (11.8-14.3); White Blood Cell 5.6 10^3/uL (4.4-10.8)
[2020-11-17 14:42] LABS: Albumin 3.4 g/dL (3.4-5.0); Anion Gap 7 (5-15); Blood Urea Nitrogen 50 mg/dL (7-18); Calcium 8.3 mg/dL (8.5-10.1); Carbon Dioxide 29 mmol/L (21-32); Chloride 100 mmol/L (98-107); Glucose 128 mg/dL (74-106); Sodium 136 mmol/L (136-145)
[2020-11-17 14:47] LABS: Alanine Aminotransferase 14 U/L (16-61); Alkaline Phosphatase 124 U/L (45-117); Aspartate Aminotransferase 9 U/L (15-37); BUN/Creatinine Ratio 6.2; Bilirubin, Total 0.4 mg/dL (0.2-1.0); GFR African American 9 mL/min; GFR Non-African American 8 mL/min; Total Protein 7.2 g/dL (6.4-8.2)
[2020-11-17 15:04] LABS: Potassium 6.6 mmol/L (3.5-5.1)
[2020-11-17] MEDS ORDERED: FUROSEMIDE 20 MG/2 ML VIAL IV ONE (16:00)
[2020-11-17] MEDS ORDERED: SODIUM ZIRCONIUM CYCL 10 GM PAK PO ONE (16:00)
[2020-11-17] MEDS ORDERED: InsuLIN REG 1unit/0.01ml Soln (100units/ml) IV ONE (16:00)
[2020-11-17] MEDS ORDERED: DEXTROSE (50%) 50ML SYRG IV ONE (16:00)
[2020-11-17] MEDS ORDERED: CALCIUM GLUC 1,000mg/50ml-NS 50 ML IV ONE (16:00)
[2020-11-17] MEDS ORDERED: SODIUM BICARBONATE 8.4% INJ 50ML SYRINGE IV ONE (16:00)
[2020-11-17] MEDS ORDERED: ALBUTEROL SULF 2.5 MG/0.5ML(0.5%) NEB SOLN NEB ONE (16:00)
[2020-11-17] MEDS ORDERED: MORPHINE SULFATE INJECTION 2 MG/2 ML SYRG IV PRN (16:45)
[2020-11-17] MEDS ORDERED: NITROGLYCERIN 0.4 MG SL TAB SL PRN (16:45)
[2020-11-17] MEDS ORDERED: ACETAMINOPHEN 500 MG TAB PO PRN (18:00)
[2020-11-17] MEDS ORDERED: DEXTROSE (50%) 50ML SYRG IV PRN (18:00)
[2020-11-17] MEDS ORDERED: PROMETHAZINE HCL 25 MG/ML 1ML IV PRN (18:00)
[2020-11-17] MEDS ORDERED: LACTULOSE 20Gm/30ML SOLN PO PRN (18:00)
[2020-11-17 20:31] LABS: BUN/Creatinine Ratio 6.4; Calcium 8.8 mg/dL (8.5-10.1); Potassium 4.7 mmol/L (3.5-5.1)
[2020-11-17 22:00] VITALS: BP 187/99
[2020-11-17] MEDS ORDERED: METOPROLOL TARTRATE 25 MG TAB PO SCH (22:00)
[2020-11-17] MEDS: InsuLIN REG 1unit/0.01ml Soln (100units/ml) SC SCH (22:16)
[2020-11-17] MEDS: INSULIN LANTUS (GLARGINE) 1 /0.01ml (100units/ml) SC SCH (22:25)
[2020-11-17] MEDS: FAMOTIDINE 20 MG TAB PO SCH (22:34)
[2020-11-17] MEDS: TICAGRELOR 90 MG TAB PO SCH (22:34)
[2020-11-17] MEDS: ACCU-CHEK COMFORT CURVE STRIP VI SCH (22:34)
[2020-11-17] MEDS: ATORVASTATIN 20 MG TAB PO SCH (22:34)
[2020-11-17] MEDS: traMADol HCL 50 MG TAB PO PRN (22:35)
[2020-11-17] MEDS: TEMAZEPAM 15 MG CAP PO PRN (22:35)
[2020-11-17] MEDS: LABETALOL HCL 5 MG/ML ML 20ML VIAL IV PRN (22:36)
[2020-11-18 02:45] VITALS: BP 189/105
[2020-11-18 05:14] LABS: Basophils # (auto) 0.1 10 ^3/uL (0-0.2); Eosinophils # (auto) 0.2 10 ^3/uL (0-0.8); Eosinophils % (auto) 3.2 % (0.0-7.0); Hematocrit 29.4 % (41.0-53.0); Hemoglobin 10.2 g/dL (13.5-17.5); Lymphocytes # (auto) 0.6 10 ^3/uL (0.4-5.4); Lymphocytes % (auto) 10.1 % (10.0-50.0); Mean Corpuscular Hemoglobin 33.1 pg (28.0-32.0); Mean Corpuscular Hgb Conc. 34.6 g/dL (32.0-36.0); Mean Corpuscular Volume 95.8 fL (80.0-100.0); Monocytes # (auto) 0.5 10 ^3/uL (0-1.3); Monocytes % (auto) 8.3 % (0.0-12.0); Neutrophils # (auto) 4.8 10 ^3/uL (1.6-8.6); Neutrophils % (auto) 77.4 % (37.0-80.0); Nucleated Red Blood Cells % 0.1 %; Red Blood Cells 3.07 10^6/uL (4.5-5.90); Red Cell Distribution Width 14.9 % (11.8-14.3); White Blood Cell 6.2 10^3/uL (4.4-10.8)
[2020-11-18] MEDS: ACCU-CHEK COMFORT CURVE STRIP VI SCH ×4 (05:18→20:44)
[2020-11-18] MEDS: InsuLIN REG 1unit/0.01ml Soln (100units/ml) SC SCH ×4 (05:22→20:48)
[2020-11-18 05:41] LABS: Calcium 8.2 mg/dL (8.5-10.1)
[2020-11-18 05:45] VITALS: BP 168/85
[2020-11-18 05:47] LABS: BUN/Creatinine Ratio 6.9; Bilirubin, Total 0.3 mg/dL (0.2-1.0); Total Protein 6.4 g/dL (6.4-8.2)
[2020-11-18] MEDS: LABETALOL HCL 5 MG/ML ML 20ML VIAL IV PRN (06:59)
[2020-11-18] MEDS: CALCIUM ACETATE 667 MG CAP PO SCH ×4 (08:05→17:45)
[2020-11-18 08:41] VITALS: BP 139/113
[2020-11-18] MEDS: NIFEdipine ER 30 MG TAB PO SCH (10:00)
[2020-11-18] MEDS: NITROGLYCERIN 0.2MG/HR TOPICAL PATCH TD SCH ×2 (10:00→12:41)
[2020-11-18] MEDS: FERROUS SULFATE 325mg EC TAB PO SCH ×2 (10:00→12:45)
[2020-11-18] MEDS: ASPirin 81 mg TAB PO SCH ×2 (10:00→12:42)
[2020-11-18] MEDS: FUROSEMIDE 40 MG TAB PO SCH ×3 (10:00→17:45)
[2020-11-18] MEDS: B-COMPLEX W/ C & FOLIC ACID(NEPHROVITE TAB) PO SCH ×2 (10:00→12:45)
[2020-11-18] MEDS ORDERED: SODIUM CHL 0.9% 1000 ML BAG XX ONE (10:45)
[2020-11-18] MEDS: TICAGRELOR 90 MG TAB PO SCH ×2 (12:44→21:01)
[2020-11-18] MEDS: METOPROLOL SUCCINATE XL 50 MG TAB PO SCH (12:45)
[2020-11-18 13:00] VITALS: BP 114/98
[2020-11-18] MEDS ORDERED: CALCIUM ACETATE 667 MG CAP PO ONE (13:30)
[2020-11-18] MEDS ORDERED: hydrALAZINE HCL 20 MG/ML VL IV PRN (14:45)
[2020-11-18 16:41] VITALS: BP 146/91
[2020-11-18] MEDS ORDERED: SEVELAMER 800 MG TAB PO ONE (18:00)
[2020-11-18] MEDS: traMADol HCL 50 MG TAB PO PRN (19:14)
[2020-11-18] MEDS: INSULIN LANTUS (GLARGINE) 1 /0.01ml (100units/ml) SC SCH (20:59)
[2020-11-18] MEDS: ATORVASTATIN 20 MG TAB PO SCH (21:01)
[2020-11-18] MEDS: TEMAZEPAM 15 MG CAP PO PRN (21:02)
[2020-11-18 22:00] VITALS: BP 178/99
[2020-11-19 05:00] VITALS: BP 146/89
[2020-11-19] MEDS: InsuLIN REG 1unit/0.01ml Soln (100units/ml) SC SCH ×4 (05:24→21:32)
[2020-11-19] MEDS: ACCU-CHEK COMFORT CURVE STRIP VI SCH ×4 (05:25→21:30)
[2020-11-19] MEDS: FUROSEMIDE 40 MG TAB PO SCH ×2 (05:26→18:00)
[2020-11-19 06:07] LABS: Anion Gap 8 (5-15); Blood Urea Nitrogen 33 mg/dL (7-18); Calcium 8.5 mg/dL (8.5-10.1); Carbon Dioxide 31 mmol/L (21-32); Chloride 93 mmol/L (98-107); Glucose 179 mg/dL (74-106); Magnesium 2.8 mg/dL (1.6-2.6); Potassium 4.8 mmol/L (3.5-5.1); Sodium 132 mmol/L (136-145)
[2020-11-19 06:10] LABS: BUN/Creatinine Ratio 4.6; GFR African American 11 mL/min; GFR Non-African American 9 mL/min
[2020-11-19] MEDS: CALCIUM ACETATE 667 MG CAP PO SCH ×3 (08:00→18:03)
[2020-11-19 09:00] VITALS: BP 162/100
[2020-11-19] MEDS: FERROUS SULFATE 325mg EC TAB PO SCH (09:50)
[2020-11-19] MEDS: NITROGLYCERIN 0.2MG/HR TOPICAL PATCH TD SCH (09:52)
[2020-11-19] MEDS: METOPROLOL SUCCINATE XL 50 MG TAB PO SCH (09:53)
[2020-11-19] MEDS: ASPirin 81 mg TAB PO SCH (09:53)
[2020-11-19] MEDS: NIFEdipine ER 30 MG TAB PO SCH (09:53)
[2020-11-19] MEDS: TICAGRELOR 90 MG TAB PO SCH ×2 (09:54→21:28)
[2020-11-19] MEDS: B-COMPLEX W/ C & FOLIC ACID(NEPHROVITE TAB) PO SCH (09:54)
[2020-11-19] MEDS: LABETALOL HCL 5 MG/ML ML 20ML VIAL IV PRN (12:51)
[2020-11-19 13:00] VITALS: BP 161/106
[2020-11-19] MEDS ORDERED: hydrALAZINE HCL 25 MG TAB PO PRN (15:00)
[2020-11-19 17:00] VITALS: BP 117/75
[2020-11-19] MEDS: ATORVASTATIN 20 MG TAB PO SCH (21:29)
[2020-11-19] MEDS: FAMOTIDINE 20 MG TAB PO SCH (21:29)
[2020-11-19] MEDS: traMADol HCL 50 MG TAB PO PRN (21:30)
[2020-11-19] MEDS: TEMAZEPAM 15 MG CAP PO PRN (21:30)
[2020-11-19 22:00] VITALS: BP 134/85
[2020-11-19] MEDS ORDERED: INSULIN LANTUS (GLARGINE) 1 /0.01ml (100units/ml) SC SCH (22:00)
[2020-11-20 05:00] VITALS: BP 155/91
[2020-11-20] MEDS: FUROSEMIDE 40 MG TAB PO SCH ×2 (05:35→18:00)
[2020-11-20] MEDS: ACCU-CHEK COMFORT CURVE STRIP VI SCH ×3 (05:39→16:40)
[2020-11-20] MEDS: InsuLIN REG 1unit/0.01ml Soln (100units/ml) SC SCH ×3 (05:39→16:54)
[2020-11-20] MEDS ORDERED: SODIUM CHL 0.9% 1000 ML BAG XX ONE ×2 (07:00→12:30)
[2020-11-20] MEDS: CALCIUM ACETATE 667 MG CAP PO SCH ×3 (07:57→18:00)
[2020-11-20 09:00] VITALS: BP 151/92
[2020-11-20] MEDS: ASPirin 81 mg TAB PO SCH (09:24)
[2020-11-20] MEDS: B-COMPLEX W/ C & FOLIC ACID(NEPHROVITE TAB) PO SCH (09:24)
[2020-11-20] MEDS: NIFEdipine ER 30 MG TAB PO SCH (09:24)
[2020-11-20] MEDS: TICAGRELOR 90 MG TAB PO SCH (09:24)
[2020-11-20] MEDS: FERROUS SULFATE 325mg EC TAB PO SCH (09:24)
[2020-11-20] MEDS: METOPROLOL SUCCINATE XL 50 MG TAB PO SCH (09:25)
[2020-11-20 13:00] VITALS: BP 170/95
[2020-11-20] MEDS ORDERED: HYDR50TA15 PO (14:06)
[2020-11-20] MEDS ORDERED: hydrALAZINE HCL 25 MG TAB PO ONE (14:15)
[2020-11-20 15:10] VITALS: BP 129/69
[2020-11-20 17:00] VITALS: BP 157/76
[2020-11-20] MEDS ORDERED: hydrALAZINE HCL 25 MG TAB PO SCH (20:00)
== END 2020-11-20 18:00 | disposition home or self-care (01) | DRG 194 ==
LOC: ER 12:24 → EDBD 12:24 → TELE 16:32 → TELE-WESTW 21:41
PROVIDERS: ADMIT Internal Medicine; ATTEND Internal Medicine
PROC: 5A1D70Z Performance of Urinary Filtration, Intermittent, Less than 6 Hours Per Day (ICD-10-PCS; principal; 2020-11-18)
PROC: 5A1D70Z Performance of Urinary Filtration, Intermittent, Less than 6 Hours Per Day (ICD-10-PCS; 2020-11-20)
DX: I11.0 Hypertensive heart disease with heart failure (principal); E11.649 Type 2 diabetes mellitus with hypoglycemia without coma; I42.0 Dilated cardiomyopathy; D63.8 Anemia in other chronic diseases classified elsewhere; E83.39 Other disorders of phosphorus metabolism; N18.6 End stage renal disease; I25.10 Atherosclerotic heart disease of native coronary artery without angina pectoris; I50.33 Acute on chronic diastolic (congestive) heart failure; I16.9 Hypertensive crisis, unspecified; E87.5 Hyperkalemia; I16.0 Hypertensive urgency; F32.9 Major depressive disorder, single episode, unspecified; E11.40 Type 2 diabetes mellitus with diabetic neuropathy, unspecified; E11.22 Type 2 diabetes mellitus with diabetic chronic kidney disease; E78.5 Hyperlipidemia, unspecified; F17.210 Nicotine dependence, cigarettes, uncomplicated; I25.2 Old myocardial infarction; Z82.49 Family history of ischemic heart disease and other diseases of the circulatory system; Z83.3 Family history of diabetes mellitus; Z95.810 Presence of automatic (implantable) cardiac defibrillator; Z98.61 Coronary angioplasty status; Z99.2 Dependence on renal dialysis; E11.21 Type 2 diabetes mellitus with diabetic nephropathy
CPT/HCPCS: 36415; 71045; 80048; 80053; 80061; 82550; 82962; 83036; 83735; 84484; 85025; 85379; 85652; 86141; 87426; 90935; 93005; 93306; 94640; 96361; 96365; G0378; J1815

== ENCOUNTER 2021-04-22 08:15 | Inpatient (IN) | payer MEDICARE, MEDICAID ==
[~2021-04-22] VITALS: Ht 175.3 cm; Wt 75.0 kg
[~2021-04-22 08:15] MED LIST changes: -AMLO-496 PO; +HYDR50TA15 PO
[2021-04-22 10:38] LABS: Basophils # (auto) 0.1 10 ^3/uL (0-0.2); Basophils % (auto) 1.4 % (0.0-2.0); Eosinophils # (auto) 0.1 10 ^3/uL (0-0.8); Eosinophils % (auto) 2.6 % (0.0-7.0); Hematocrit 28.6 % (41.0-53.0); Hemoglobin 9.9 g/dL (13.5-17.5); Lymphocytes # (auto) 0.4 10 ^3/uL (0.4-5.4); Lymphocytes % (auto) 7.7 % (10.0-50.0); Mean Corpuscular Hemoglobin 32.5 pg (28.0-32.0); Mean Corpuscular Hgb Conc. 34.6 g/dL (32.0-36.0); Mean Corpuscular Volume 93.9 fL (80.0-100.0); Monocytes # (auto) 0.4 10 ^3/uL (0-1.3); Monocytes % (auto) 7.1 % (0.0-12.0); Neutrophils # (auto) 4.7 10 ^3/uL (1.6-8.6); Neutrophils % (auto) 81.2 % (37.0-80.0); Red Blood Cells 3.05 10^6/uL (4.5-5.90); Red Cell Distribution Width 14.9 % (11.8-14.3); White Blood Cell 5.8 10^3/uL (4.4-10.8)
[2021-04-22 10:56] LABS: Albumin 3.5 g/dL (3.4-5.0); Calcium 8.6 mg/dL (8.5-10.1); Potassium 5.3 mmol/L (3.5-5.1)
[2021-04-22 11:02] LABS: BUN/Creatinine Ratio 6.4; Bilirubin, Total 0.4 mg/dL (0.2-1.0); Total Protein 6.7 g/dL (6.4-8.2)
[2021-04-22] MEDS ORDERED: cefTRIAXone 1GM/50ML D5W 50 ML IV ONE (11:15)
[2021-04-22] MEDS ORDERED: AZITHROMYCIN 250 MG TAB PO ONE (11:15)
[2021-04-22] MEDS ORDERED: MORPHINE SULFATE INJECTION 2 MG/ML SYRG IV PRN ×3 (14:00→15:45)
[2021-04-22] MEDS ORDERED: NITROGLYCERIN 0.4 MG SL TAB SL PRN ×2 (14:00→15:45)
[2021-04-22] MEDS ORDERED: DOCUSATE SOD 100 MG CAP PO PRN (15:45)
[2021-04-22] MEDS ORDERED: METOPROLOL SUCCINATE XL 50 MG TAB PO ONE (15:45)
[2021-04-22] MEDS ORDERED: LORazepam 0.5 MG TAB PO PRN (15:45)
[2021-04-22] MEDS ORDERED: METOCLOPRAMIDE HCL 5MG/ml INJ 2ml VIAL IV PRN (15:45)
[2021-04-22] MEDS ORDERED: BUMETANIDE 2.5mg/10ml (0.25 mg/ml) INJ IV ONE (15:45)
[2021-04-22] MEDS ORDERED: ACETAMINOPHEN 325 MG TAB PO PRN (15:45)
[2021-04-22] MEDS ORDERED: PIPERACILLIN-TAZOB 2.25GM 50 ML IV ONE (15:45)
[2021-04-22] MEDS ORDERED: VANCOMYCIN PER PHARMACY 0 MG IV SCH (15:45)
[2021-04-22] MEDS ORDERED: ALUM & MAG HYDROX-SIMETH LIQ(MAALOX) 30 ML PO PRN (15:45)
[2021-04-22] MEDS ORDERED: FAMOTIDINE (10MG/ML) 2ML VL IV ONE (15:45)
[2021-04-22] MEDS ORDERED: DEXTROSE (50%) 50ML SYRG IV PRN (15:45)
[2021-04-22] MEDS ORDERED: hydrALAZINE HCL 20 MG/ML VL IV PRN (15:45)
[2021-04-22] MEDS ORDERED: VANCOMYCIN 1GM/250ML 250 ML IV ONE (16:30)
[2021-04-22] MEDS: ACCU-CHEK COMFORT CURVE STRIP VI SCH (18:00)
[2021-04-22] MEDS: InsuLIN REG 1unit/0.01ml Soln (100units/ml) SC SCH (18:00)
[2021-04-22] MEDS: ATORVASTATIN 20 MG TAB PO SCH (22:00)
[2021-04-23] MEDS: PIPERACILLIN-TAZOB 2.25GM 50 ML IV SCH ×3 (02:00→11:39)
[2021-04-23] MEDS: CALCIUM ACETATE 667 MG CAP PO SCH ×4 (03:39→18:38)
[2021-04-23] MEDS: FAMOTIDINE (10MG/ML) 2ML VL IV SCH (03:40)
[2021-04-23] MEDS: hydrALAZINE HCL 25 MG TAB PO SCH ×4 (03:40→22:11)
[2021-04-23] MEDS: InsuLIN REG 1unit/0.01ml Soln (100units/ml) SC SCH ×4 (03:57→18:46)
[2021-04-23] MEDS: BUMETANIDE 2.5mg/10ml (0.25 mg/ml) INJ IV SCH ×2 (05:09→18:39)
[2021-04-23] MEDS: ACCU-CHEK COMFORT CURVE STRIP VI SCH ×4 (06:09→18:39)
[2021-04-23 08:52] LABS: Basophils # (auto) 0.1 10 ^3/uL (0-0.2); Basophils % (auto) 0.9 % (0.0-2.0); Eosinophils # (auto) 0.2 10 ^3/uL (0-0.8); Eosinophils % (auto) 3.8 % (0.0-7.0); Hematocrit 30.1 % (41.0-53.0); Hemoglobin 10.1 g/dL (13.5-17.5); Lymphocytes # (auto) 0.5 10 ^3/uL (0.4-5.4); Lymphocytes % (auto) 7.7 % (10.0-50.0); Mean Corpuscular Hemoglobin 31.9 pg (28.0-32.0); Mean Corpuscular Hgb Conc. 33.6 g/dL (32.0-36.0); Mean Corpuscular Volume 95.1 fL (80.0-100.0); Monocytes # (auto) 0.5 10 ^3/uL (0-1.3); Monocytes % (auto) 8.2 % (0.0-12.0); Neutrophils # (auto) 5.1 10 ^3/uL (1.6-8.6); Neutrophils % (auto) 79.4 % (37.0-80.0); Red Blood Cells 3.16 10^6/uL (4.5-5.90); Red Cell Distribution Width 14.8 % (11.8-14.3); White Blood Cell 6.5 10^3/uL (4.4-10.8)
[2021-04-23 09:07] LABS: INR 1.03 (0.9-1.15); Partial Thromboplastin Time 26.8 sec (23.6-33.0)
[2021-04-23 09:24] LABS: % Iron Saturation 15.2 % (20-55)
[2021-04-23 09:27] LABS: Calcium 8.9 mg/dL (8.5-10.1); Potassium 5.3 mmol/L (3.5-5.1)
[2021-04-23 09:39] LABS: Albumin 3.6 g/dL (3.4-5.0); BUN/Creatinine Ratio 6.4; Bilirubin, Total 0.5 mg/dL (0.2-1.0); Phosphorus 6.4 mg/dL (2.5-4.90)
[2021-04-23] MEDS ORDERED: ENOXAPARIN SOD 30 MG/0.3 ML SYRINGE SC SCH (10:00)
[2021-04-23] MEDS: METOPROLOL SUCCINATE XL 50 MG TAB PO SCH (11:38)
[2021-04-23] MEDS: ASPirin-EC 81 mg tab PO SCH (11:39)
[2021-04-23] MEDS: ISOSORBIDE MONONITRATE ER 60 MG TAB PO SCH (11:39)
[2021-04-23] MEDS: FERROUS SULFATE 325mg EC TAB PO SCH (11:39)
[2021-04-23] MEDS: NIFEdipine ER 30 MG TAB PO SCH (11:41)
[2021-04-23 13:24] VITALS: BP 159/89
[2021-04-23] MEDS ORDERED: VANCOMYCIN 1GM/250ML 250 ML IV ONE (16:00)
[2021-04-23 17:00] VITALS: BP 160/100
[2021-04-23 20:00] VITALS: BP 131/75
[2021-04-23 22:00] VITALS: BP 131/75
[2021-04-23] MEDS: ATORVASTATIN 20 MG TAB PO SCH (22:11)
[2021-04-23] MEDS: HEPARIN SODIUM (PORCINE) 5000 UNITS/ML 1ML VIAL SC SCH (22:12)
[2021-04-24] VITALS (7 sets, daily range): BP systolic 17–164; BP diastolic 77–94
[2021-04-24] MEDS: ACCU-CHEK COMFORT CURVE STRIP VI SCH ×5 (00:07→23:26)
[2021-04-24] MEDS: BUMETANIDE 2.5mg/10ml (0.25 mg/ml) INJ IV SCH ×2 (05:56→11:14)
[2021-04-24] MEDS: hydrALAZINE HCL 25 MG TAB PO SCH ×3 (05:57→22:30)
[2021-04-24] MEDS: InsuLIN REG 1unit/0.01ml Soln (100units/ml) SC SCH ×5 (05:57→23:26)
[2021-04-24 06:34] LABS: Basophils # (auto) 0.1 10 ^3/uL (0-0.2); Basophils % (auto) 1.3 % (0.0-2.0); Eosinophils # (auto) 0.2 10 ^3/uL (0-0.8); Eosinophils % (auto) 5.3 % (0.0-7.0); Hematocrit 29.4 % (41.0-53.0); Hemoglobin 10.1 g/dL (13.5-17.5); Lymphocytes # (auto) 0.6 10 ^3/uL (0.4-5.4); Lymphocytes % (auto) 12.2 % (10.0-50.0); Mean Corpuscular Hemoglobin 32.5 pg (28.0-32.0); Mean Corpuscular Hgb Conc. 34.4 g/dL (32.0-36.0); Mean Corpuscular Volume 94.5 fL (80.0-100.0); Monocytes # (auto) 0.5 10 ^3/uL (0-1.3); Monocytes % (auto) 9.6 % (0.0-12.0); Neutrophils # (auto) 3.3 10 ^3/uL (1.6-8.6); Neutrophils % (auto) 71.6 % (37.0-80.0); Nucleated Red Blood Cells % 0.1 %; Red Blood Cells 3.11 10^6/uL (4.5-5.90); Red Cell Distribution Width 14.9 % (11.8-14.3); White Blood Cell 4.7 10^3/uL (4.4-10.8)
[2021-04-24] MEDS: CALCIUM ACETATE 667 MG CAP PO SCH ×3 (09:24→18:38)
[2021-04-24] MEDS: FAMOTIDINE (10MG/ML) 2ML VL IV SCH (09:24)
[2021-04-24] MEDS: ISOSORBIDE MONONITRATE ER 60 MG TAB PO SCH (09:25)
[2021-04-24] MEDS: ASPirin-EC 81 mg tab PO SCH (09:25)
[2021-04-24] MEDS: HEPARIN SODIUM (PORCINE) 5000 UNITS/ML 1ML VIAL SC SCH ×2 (09:25→22:31)
[2021-04-24] MEDS: FERROUS SULFATE 325mg EC TAB PO SCH (09:25)
[2021-04-24] MEDS: NIFEdipine ER 30 MG TAB PO SCH (09:26)
[2021-04-24] MEDS: METOPROLOL SUCCINATE XL 50 MG TAB PO SCH (09:26)
[2021-04-24] MEDS: HYDROcodone-ACET 5/325MG TAB PO PRN ×3 (09:43→22:41)
[2021-04-24] MEDS: TICAGRELOR 90 MG TAB PO SCH ×2 (11:14→22:30)
[2021-04-24] MEDS ORDERED: IOHEXOL 350 MG/ML 100ML IJ ONE ×2 (17:34→17:38)
[2021-04-24] MEDS: ATORVASTATIN 20 MG TAB PO SCH (22:30)
[2021-04-24] MEDS: DOXYCYCLINE 100 MG TAB/CAP PO SCH (22:31)
[2021-04-25 05:00] VITALS: BP 164/85
[2021-04-25 05:37] LABS: Basophils # (auto) 0.1 10 ^3/uL (0-0.2); Basophils % (auto) 1.3 % (0.0-2.0); Eosinophils # (auto) 0.1 10 ^3/uL (0-0.8); Eosinophils % (auto) 2.5 % (0.0-7.0); Hematocrit 30.9 % (41.0-53.0); Hemoglobin 10.6 g/dL (13.5-17.5); Lymphocytes # (auto) 0.4 10 ^3/uL (0.4-5.4); Mean Corpuscular Hgb Conc. 34.4 g/dL (32.0-36.0); Mean Corpuscular Volume 92.9 fL (80.0-100.0); Monocytes # (auto) 0.7 10 ^3/uL (0-1.3); Monocytes % (auto) 13.2 % (0.0-12.0); Neutrophils # (auto) 4.1 10 ^3/uL (1.6-8.6); Red Blood Cells 3.32 10^6/uL (4.5-5.90); Red Cell Distribution Width 14.6 % (11.8-14.3); White Blood Cell 5.4 10^3/uL (4.4-10.8)
[2021-04-25] MEDS: hydrALAZINE HCL 25 MG TAB PO SCH ×3 (05:55→20:59)
[2021-04-25] MEDS: ACCU-CHEK COMFORT CURVE STRIP VI SCH ×4 (05:55→23:09)
[2021-04-25] MEDS: HYDROcodone-ACET 5/325MG TAB PO PRN ×2 (05:55→20:35)
[2021-04-25] MEDS: InsuLIN REG 1unit/0.01ml Soln (100units/ml) SC SCH ×4 (06:00→23:11)
[2021-04-25] MEDS ORDERED: SODIUM CHL 0.9% 1000 ML BAG XX ONE (07:00)
[2021-04-25] MEDS: CALCIUM ACETATE 667 MG CAP PO SCH ×3 (08:00→18:50)
[2021-04-25 09:00] VITALS: BP 160/95
[2021-04-25] MEDS ORDERED: methylPREDNISolone SOD SUCC 40 MG/ML VL IV ONE (10:00)
[2021-04-25] MEDS: TICAGRELOR 90 MG TAB PO SCH ×2 (11:50→23:03)
[2021-04-25] MEDS: ASPirin-EC 81 mg tab PO SCH (11:50)
[2021-04-25] MEDS: FERROUS SULFATE 325mg EC TAB PO SCH (11:50)
[2021-04-25] MEDS: BUMETANIDE 2.5mg/10ml (0.25 mg/ml) INJ IV SCH (11:50)
[2021-04-25] MEDS: NIFEdipine ER 30 MG TAB PO SCH (11:51)
[2021-04-25] MEDS: ISOSORBIDE MONONITRATE ER 60 MG TAB PO SCH (11:51)
[2021-04-25] MEDS: METOPROLOL SUCCINATE XL 50 MG TAB PO SCH (11:51)
[2021-04-25] MEDS: DOXYCYCLINE 100 MG TAB/CAP PO SCH ×2 (11:51→20:34)
[2021-04-25] MEDS: HEPARIN SODIUM (PORCINE) 5000 UNITS/ML 1ML VIAL SC SCH ×2 (11:52→20:42)
[2021-04-25 13:00] VITALS: BP 153/118
[2021-04-25 17:00] VITALS: BP 145/95
[2021-04-25] MEDS: ALBUTEROL SULF 2.5 MG/0.5ML(0.5%) NEB SOLN NEB SCH ×2 (18:00→22:10)
[2021-04-25] MEDS: IPRATROPIUM BROM 0.5 MG/2.5ML INH SOL NEB SCH ×2 (18:00→22:10)
[2021-04-25] MEDS: BUDESONIDE (INHALATION) 0.5 MG/2 ML NEB NEB SCH (19:40)
[2021-04-25] MEDS: methylPREDNISolone SOD SUCC 40 MG/ML VL IV SCH (20:33)
[2021-04-25] MEDS: ATORVASTATIN 20 MG TAB PO SCH (20:34)
[2021-04-25 20:45] VITALS: BP 144/66
[2021-04-26 00:17] VITALS: BP 133/72
[2021-04-26] MEDS: IPRATROPIUM BROM 0.5 MG/2.5ML INH SOL NEB SCH ×3 (02:13→10:24)
[2021-04-26] MEDS: ALBUTEROL SULF 2.5 MG/0.5ML(0.5%) NEB SOLN NEB SCH ×3 (02:13→10:24)
[2021-04-26 06:11] VITALS: BP 128/68
[2021-04-26] MEDS: ACCU-CHEK COMFORT CURVE STRIP VI SCH ×2 (06:23→12:03)
[2021-04-26] MEDS: hydrALAZINE HCL 25 MG TAB PO SCH (06:23)
[2021-04-26] MEDS: InsuLIN REG 1unit/0.01ml Soln (100units/ml) SC SCH ×2 (06:24→12:05)
[2021-04-26] MEDS: CALCIUM ACETATE 667 MG CAP PO SCH ×2 (08:18→12:03)
[2021-04-26 09:00] VITALS: BP 146/74
[2021-04-26] MEDS ORDERED: DOX100T PO (09:57)
[2021-04-26] MEDS ORDERED: ALBUAER3 IN (09:57)
[2021-04-26] MEDS ORDERED: HYDR-4902 PO (09:57)
[2021-04-26] MEDS ORDERED: FLUT110A INH (09:57)
[2021-04-26] MEDS ORDERED: PRED20TA2 PO (09:57)
[2021-04-26] MEDS: BUDESONIDE (INHALATION) 0.5 MG/2 ML NEB NEB SCH (10:24)
[2021-04-26] MEDS: DOXYCYCLINE 100 MG TAB/CAP PO SCH (10:42)
[2021-04-26] MEDS: METOPROLOL SUCCINATE XL 50 MG TAB PO SCH (10:42)
[2021-04-26] MEDS: ISOSORBIDE MONONITRATE ER 60 MG TAB PO SCH (10:43)
[2021-04-26] MEDS: NIFEdipine ER 30 MG TAB PO SCH (10:43)
[2021-04-26] MEDS: ASPirin-EC 81 mg tab PO SCH (10:44)
[2021-04-26] MEDS: HEPARIN SODIUM (PORCINE) 5000 UNITS/ML 1ML VIAL SC SCH (10:44)
[2021-04-26] MEDS: TICAGRELOR 90 MG TAB PO SCH (10:45)
[2021-04-26] MEDS: FERROUS SULFATE 325mg EC TAB PO SCH (10:45)
[2021-04-26] MEDS: methylPREDNISolone SOD SUCC 40 MG/ML VL IV SCH (10:45)
[2021-04-26] MEDS ORDERED: BUMETANIDE 1mg/4ml VIAL (0.25mg/ml) IV SCH (10:49)
[2021-04-26 11:16] VITALS: BP 146/74
[2021-04-26 12:53] VITALS: BP 141/76
== END 2021-04-26 12:50 | disposition home or self-care (01) | DRG 291 ==
LOC: ER 08:15 → TELE 15:38 → TELE-WESTW 04-23 09:01
PROVIDERS: ADMIT Hospitalist; ATTEND Internal Medicine
PROC: 5A1D70Z Performance of Urinary Filtration, Intermittent, Less than 6 Hours Per Day (ICD-10-PCS; principal; 2021-04-23)
PROC: 5A1D70Z Performance of Urinary Filtration, Intermittent, Less than 6 Hours Per Day (ICD-10-PCS; 2021-04-23)
DX: I13.2 Hypertensive heart and chronic kidney disease with heart failure and with stage 5 chronic kidney disease, or end stage renal disease (principal); I50.43 Acute on chronic combined systolic (congestive) and diastolic (congestive) heart failure; N18.6 End stage renal disease; J44.1 Chronic obstructive pulmonary disease with (acute) exacerbation; E87.5 Hyperkalemia; I25.10 Atherosclerotic heart disease of native coronary artery without angina pectoris; E11.649 Type 2 diabetes mellitus with hypoglycemia without coma; E11.40 Type 2 diabetes mellitus with diabetic neuropathy, unspecified; I25.5 Ischemic cardiomyopathy; D63.1 Anemia in chronic kidney disease; E11.22 Type 2 diabetes mellitus with diabetic chronic kidney disease; J20.9 Acute bronchitis, unspecified; F32.A Depression, unspecified; E11.21 Type 2 diabetes mellitus with diabetic nephropathy; I27.21 Secondary pulmonary arterial hypertension; F17.200 Nicotine dependence, unspecified, uncomplicated; Z20.822 Contact with and (suspected) exposure to COVID-19; Z99.2 Dependence on renal dialysis; Z95.810 Presence of automatic (implantable) cardiac defibrillator; Z79.02 Long term (current) use of antithrombotics/antiplatelets; Z79.899 Other long term (current) drug therapy; Z82.49 Family history of ischemic heart disease and other diseases of the circulatory system; Z83.3 Family history of diabetes mellitus; Z95.5 Presence of coronary angioplasty implant and graft; Z79.4 Long term (current) use of insulin
CPT/HCPCS: 36415; 71045; 71046; 71275; 80053; 80202; 82565; 82962; 83036; 83540; 83550; 83880; 83970; 84100; 84484; 85025; 85379; 85610; 85730; 87040; 87081; 87426; 87804; 90935; 93005; 94640; 96365; G0378; J0696; J1815; J2543; J3490

== ENCOUNTER 2021-07-24 14:57 | Inpatient (IN) | payer MEDICARE, MEDICAID ==
[~2021-07-24] VITALS: Ht 172.7 cm; Wt 74.4 kg
[~2021-07-24 14:57] MED LIST changes: +ALBUAER3 IN; +DOX100T PO; +FLUT110A INH; +PRED20TA2 PO
[2021-07-24] MEDS ORDERED: MORPHINE SULFATE 4 MG/ML SYR/VIAL IV ONE (15:15)
[2021-07-24] MEDS ORDERED: ONDANSETRON HCL 4 MG/2 ML VIAL IV ONE (15:15)
[2021-07-24 15:30] LABS: Basophils # (auto) 0 10 ^3/uL (0-0.2); Basophils % (auto) 0.8 % (0.0-2.0); Eosinophils # (auto) 0.1 10 ^3/uL (0-0.8); Eosinophils % (auto) 2.9 % (0.0-7.0); Hematocrit 27.4 % (41.0-53.0); Hemoglobin 9.3 g/dL (13.5-17.5); Lymphocytes # (auto) 0.6 10 ^3/uL (0.4-5.4); Lymphocytes % (auto) 14.5 % (10.0-50.0); Mean Corpuscular Hemoglobin 31.9 pg (28.0-32.0); Mean Corpuscular Hgb Conc. 33.9 g/dL (32.0-36.0); Monocytes # (auto) 0.4 10 ^3/uL (0-1.3); Monocytes % (auto) 9.1 % (0.0-12.0); Neutrophils # (auto) 2.8 10 ^3/uL (1.6-8.6); Neutrophils % (auto) 72.7 % (37.0-80.0); Red Blood Cells 2.92 10^6/uL (4.5-5.90); Red Cell Distribution Width 14.6 % (11.8-14.3); White Blood Cell 3.9 10^3/uL (4.4-10.8)
[2021-07-24 15:47] LABS: INR 1.09 (0.9-1.15); Partial Thromboplastin Time 25.8 sec (23.6-33.0)
[2021-07-24 15:54] LABS: Albumin 3.2 g/dL (3.4-5.0); Calcium 8.4 mg/dL (8.5-10.1); Potassium 4.7 mmol/L (3.5-5.1)
[2021-07-24 15:57] LABS: Bilirubin, Total 0.4 mg/dL (0.2-1.0); Total Protein 6.1 g/dL (6.4-8.2)
[2021-07-24 16:24] LABS: BUN/Creatinine Ratio 5.1
[2021-07-24] MEDS ORDERED: NITROGLYCERIN 0.4 MG SL TAB SL PRN (17:45)
[2021-07-24] MEDS ORDERED: ACETAMINOPHEN 325 MG TAB PO PRN (17:45)
[2021-07-24] MEDS: HYDROcodone-ACET 5/325MG TAB PO PRN (20:23)
[2021-07-24] MEDS: cloNIDine HCL 0.1 MG TAB PO PRN (20:54)
[2021-07-24 22:00] VITALS: BP 156/90
[2021-07-24] MEDS: TICAGRELOR 90 MG TAB PO SCH (22:43)
[2021-07-24] MEDS: ATORVASTATIN 20 MG TAB PO SCH (22:43)
[2021-07-24] MEDS: MORPHINE SULFATE 4 MG/ML SYR/VIAL IV PRN (23:19)
[2021-07-25 05:00] VITALS: BP 151/88
[2021-07-25 05:54] LABS: Basophils # (auto) 0.1 10 ^3/uL (0-0.2); Basophils % (auto) 1.1 % (0.0-2.0); Eosinophils # (auto) 0.2 10 ^3/uL (0-0.8); Eosinophils % (auto) 3.3 % (0.0-7.0); Hematocrit 26.1 % (41.0-53.0); Hemoglobin 9.1 g/dL (13.5-17.5); Lymphocytes # (auto) 0.7 10 ^3/uL (0.4-5.4); Lymphocytes % (auto) 13.9 % (10.0-50.0); Mean Corpuscular Volume 94.2 fL (80.0-100.0); Monocytes # (auto) 0.3 10 ^3/uL (0-1.3); Monocytes % (auto) 5.8 % (0.0-12.0); Neutrophils # (auto) 3.9 10 ^3/uL (1.6-8.6); Neutrophils % (auto) 75.9 % (37.0-80.0); Red Blood Cells 2.77 10^6/uL (4.5-5.90); Red Cell Distribution Width 14.5 % (11.8-14.3); White Blood Cell 5.1 10^3/uL (4.4-10.8)
[2021-07-25 06:23] LABS: Potassium 5.4 mmol/L (3.5-5.1)
[2021-07-25 06:34] LABS: Albumin 2.9 g/dL (3.4-5.0); BUN/Creatinine Ratio 5.6; Calcium 8.2 mg/dL (8.5-10.1)
[2021-07-25 06:36] LABS: Bilirubin, Total 0.4 mg/dL (0.2-1.0); Total Protein 5.4 g/dL (6.4-8.2)
[2021-07-25] MEDS ORDERED: SODIUM CHL 0.9% 1000 ML BAG XX ONE (08:15)
[2021-07-25 09:01] VITALS: BP 169/91
[2021-07-25 12:40] VITALS: BP 160/92
[2021-07-25] MEDS ORDERED: DEXTROSE (50%) 50ML SYRG IV PRN (12:45)
[2021-07-25] MEDS: NIFEdipine ER 30 MG TAB PO SCH (12:46)
[2021-07-25] MEDS: METOPROLOL SUCCINATE XL 50 MG TAB PO SCH (12:47)
[2021-07-25] MEDS: TICAGRELOR 90 MG TAB PO SCH ×2 (12:48→21:38)
[2021-07-25] MEDS: ASPirin 81 mg TAB PO SCH (12:48)
[2021-07-25] MEDS: ENOXAPARIN SOD 30 MG/0.3 ML SYRINGE SC SCH (12:49)
[2021-07-25] MEDS: HYDROcodone-ACET 5/325MG TAB PO PRN ×2 (12:55→17:03)
[2021-07-25] MEDS: cloNIDine HCL 0.1 MG TAB PO PRN (16:30)
[2021-07-25 16:59] VITALS: BP 189/88
[2021-07-25] MEDS: InsuLIN REG 1unit/0.01ml Soln (100units/ml) SC SCH ×2 (17:06→21:41)
[2021-07-25] MEDS: ACCU-CHEK COMFORT CURVE STRIP VI SCH ×2 (17:06→21:45)
[2021-07-25] MEDS ORDERED: AMLO-496 PO (19:10)
[2021-07-25] MEDS: MORPHINE SULFATE 4 MG/ML SYR/VIAL IV PRN (20:27)
[2021-07-25] MEDS ORDERED: EPOETIN ALFA-EPBX 10,000 UNIT/1ML VIAL SC ONE (21:00)
[2021-07-25] MEDS: ATORVASTATIN 20 MG TAB PO SCH (21:38)
[2021-07-25 21:46] VITALS: BP 127/74
[2021-07-26] VITALS (7 sets, daily range): BP systolic 125–165; BP diastolic 70–92
[2021-07-26] MEDS: ACCU-CHEK COMFORT CURVE STRIP VI SCH ×4 (07:00→21:27)
[2021-07-26] MEDS: InsuLIN REG 1unit/0.01ml Soln (100units/ml) SC SCH ×4 (07:00→21:26)
[2021-07-26] MEDS: MORPHINE SULFATE 4 MG/ML SYR/VIAL IV PRN ×3 (08:36→18:20)
[2021-07-26] MEDS: METOPROLOL SUCCINATE XL 50 MG TAB PO SCH (10:30)
[2021-07-26] MEDS: TICAGRELOR 90 MG TAB PO SCH ×2 (10:30→21:25)
[2021-07-26] MEDS: NIFEdipine ER 30 MG TAB PO SCH (10:30)
[2021-07-26] MEDS: ENOXAPARIN SOD 30 MG/0.3 ML SYRINGE SC SCH (10:31)
[2021-07-26] MEDS: ASPirin 81 mg TAB PO SCH (10:31)
[2021-07-26] MEDS ORDERED: LACTULOSE 20Gm/30ML SOLN PO ONE (11:00)
[2021-07-26] MEDS ORDERED: NIFE90TA49 PO (16:05)
[2021-07-26] MEDS ORDERED: HYDR50TA15 PO (16:05)
[2021-07-26] MEDS ORDERED: METO-289 PO (16:05)
[2021-07-26] MEDS: cloNIDine HCL 0.1 MG TAB PO PRN (16:12)
[2021-07-26] MEDS: ATORVASTATIN 20 MG TAB PO SCH (21:26)
[2021-07-26] MEDS: HYDROcodone-ACET 5/325MG TAB PO PRN (21:26)
[2021-07-27 05:00] VITALS: BP 132/82
[2021-07-27] MEDS: ACCU-CHEK COMFORT CURVE STRIP VI SCH ×4 (06:17→22:00)
[2021-07-27] MEDS: InsuLIN REG 1unit/0.01ml Soln (100units/ml) SC SCH ×4 (06:17→21:59)
[2021-07-27 08:00] VITALS: BP 152/86
[2021-07-27 08:30] VITALS: BP 152/86
[2021-07-27] MEDS: NIFEdipine ER 30 MG TAB PO SCH (09:38)
[2021-07-27] MEDS: ENOXAPARIN SOD 30 MG/0.3 ML SYRINGE SC SCH (09:39)
[2021-07-27] MEDS: METOPROLOL SUCCINATE XL 50 MG TAB PO SCH (09:39)
[2021-07-27] MEDS: MORPHINE SULFATE 4 MG/ML SYR/VIAL IV PRN ×2 (09:40→21:58)
[2021-07-27] MEDS: ASPirin 81 mg TAB PO SCH (09:51)
[2021-07-27] MEDS: TICAGRELOR 90 MG TAB PO SCH ×2 (09:51→21:55)
[2021-07-27 12:30] VITALS: BP 142/93
[2021-07-27] MEDS ORDERED: SODIUM CHL 0.9% 1000 ML BAG XX ONE (13:30)
[2021-07-27 17:00] VITALS: BP 139/81
[2021-07-27] MEDS: ATORVASTATIN 20 MG TAB PO SCH (21:55)
[2021-07-27 22:00] VITALS: BP 139/71
[2021-07-28 05:00] VITALS: BP 131/90
[2021-07-28] MEDS: MORPHINE SULFATE 4 MG/ML SYR/VIAL IV PRN (05:32)
[2021-07-28] MEDS: InsuLIN REG 1unit/0.01ml Soln (100units/ml) SC SCH ×2 (07:00→11:30)
[2021-07-28] MEDS: ACCU-CHEK COMFORT CURVE STRIP VI SCH ×2 (07:27→11:43)
[2021-07-28 08:00] VITALS: BP 142/84
[2021-07-28 09:00] VITALS: BP 142/84
[2021-07-28] MEDS: METOPROLOL SUCCINATE XL 50 MG TAB PO SCH (10:11)
[2021-07-28] MEDS: ASPirin 81 mg TAB PO SCH (10:11)
[2021-07-28] MEDS: NIFEdipine ER 30 MG TAB PO SCH (10:11)
[2021-07-28] MEDS: ENOXAPARIN SOD 30 MG/0.3 ML SYRINGE SC SCH (10:11)
[2021-07-28] MEDS: TICAGRELOR 90 MG TAB PO SCH (10:12)
[2021-07-28] MEDS: HYDROcodone-ACET 5/325MG TAB PO PRN (10:18)
[2021-07-28 12:00] VITALS: BP_SYST 128; BP_SYST 155; BP_DIAS 77; BP_DIAS 82
[2021-07-28 13:34] VITALS: BP 155/82
== END 2021-07-28 15:32 | disposition home or self-care (01) | DRG 291 ==
LOC: ER 14:57 → EDBD 14:57 → TELE 17:38 → TELE-WESTW 21:07
PROVIDERS: ADMIT Internal Medicine; ATTEND Family Medicine
PROC: 5A1D70Z Performance of Urinary Filtration, Intermittent, Less than 6 Hours Per Day (ICD-10-PCS; 2021-07-25)
PROC: 5A1D70Z Performance of Urinary Filtration, Intermittent, Less than 6 Hours Per Day (ICD-10-PCS; principal; 2021-07-27)
DX: I13.2 Hypertensive heart and chronic kidney disease with heart failure and with stage 5 chronic kidney disease, or end stage renal disease (principal); I50.43 Acute on chronic combined systolic (congestive) and diastolic (congestive) heart failure; N18.6 End stage renal disease; E44.0 Moderate protein-calorie malnutrition; J44.1 Chronic obstructive pulmonary disease with (acute) exacerbation; E87.5 Hyperkalemia; D63.1 Anemia in chronic kidney disease; I49.5 Sick sinus syndrome; E11.22 Type 2 diabetes mellitus with diabetic chronic kidney disease; E11.40 Type 2 diabetes mellitus with diabetic neuropathy, unspecified; E78.00 Pure hypercholesterolemia, unspecified; E88.09 Other disorders of plasma-protein metabolism, not elsewhere classified; F32.A Depression, unspecified; Z20.822 Contact with and (suspected) exposure to COVID-19; F17.200 Nicotine dependence, unspecified, uncomplicated; I25.119 Atherosclerotic heart disease of native coronary artery with unspecified angina pectoris; Z68.24 Body mass index [BMI] 24.0-24.9, adult; Z71.6 Tobacco abuse counseling; I25.2 Old myocardial infarction; Z79.51 Long term (current) use of inhaled steroids; Z79.899 Other long term (current) drug therapy; Z82.49 Family history of ischemic heart disease and other diseases of the circulatory system; Z83.3 Family history of diabetes mellitus; Z95.5 Presence of coronary angioplasty implant and graft; Z95.810 Presence of automatic (implantable) cardiac defibrillator; Z99.2 Dependence on renal dialysis; E11.65 Type 2 diabetes mellitus with hyperglycemia
CPT/HCPCS: 36415; 71045; 80053; 82962; 83880; 84100; 84484; 85025; 85610; 85730; 90935; 93005; 93306; 96374; 96375; G0378; J1815; J2405

== ENCOUNTER 2021-10-28 12:57 | Inpatient (IN) | payer MEDICAID, MEDICARE ==
[~2021-10-28] VITALS: Ht 172.7 cm; Wt 80.3 kg
[~2021-10-28 12:57] MED LIST changes: +AMLO-496 PO; +METO-289 PO
[2021-10-28] MEDS ORDERED: ASPirin 81 mg TAB PO ONE (13:15)
[2021-10-28 13:43] LABS: Basophils # (auto) 0.1 10 ^3/uL (0-0.2); Basophils % (auto) 1.2 % (0.0-2.0); Eosinophils # (auto) 0.1 10 ^3/uL (0-0.8); Eosinophils % (auto) 1.7 % (0.0-7.0); Hematocrit 30.4 % (41.0-53.0); Hemoglobin 10.2 g/dL (13.5-17.5); Lymphocytes # (auto) 0.5 10 ^3/uL (0.4-5.4); Lymphocytes % (auto) 7.1 % (10.0-50.0); Mean Corpuscular Hemoglobin 30.3 pg (28.0-32.0); Mean Corpuscular Hgb Conc. 33.6 g/dL (32.0-36.0); Mean Corpuscular Volume 90.1 fL (80.0-100.0); Monocytes # (auto) 0.3 10 ^3/uL (0-1.3); Monocytes % (auto) 4.4 % (0.0-12.0); Neutrophils % (auto) 85.6 % (37.0-80.0); Red Blood Cells 3.37 10^6/uL (4.5-5.90); Red Cell Distribution Width 15.7 % (11.8-14.3)
[2021-10-28 13:59] LABS: Albumin 3.7 g/dL (3.4-5.0); BUN/Creatinine Ratio 7.3; Calcium 8.7 mg/dL (8.5-10.1); Magnesium 3.3 mg/dL (1.6-2.6)
[2021-10-28 14:02] LABS: Bilirubin, Total 0.4 mg/dL (0.2-1.0); Total Protein 6.9 g/dL (6.4-8.2)
[2021-10-28 14:06] LABS: Partial Thromboplastin Time 26.3 sec (24.6-33.4)
[2021-10-28 14:18] LABS: Potassium 6.2 mmol/L (3.5-5.1)
[2021-10-28] MEDS ORDERED: SODIUM ZIRCONIUM CYCL 10 GM PAK PO ONE ×2 (17:30→20:15)
[2021-10-28] MEDS ORDERED: CALCIUM GLUC 1,000mg/50ml-NS 50 ML IV ONE (17:30)
[2021-10-28] MEDS ORDERED: DEXTROSE (50%) 50ML SYRG IV ONE (17:30)
[2021-10-28] MEDS ORDERED: InsuLIN REG 1unit/0.01ml Soln (100units/ml) IV ONE (17:30)
[2021-10-28] MEDS ORDERED: DEXTROSE (50%) 50ML SYRG IV PRN (17:45)
[2021-10-28] MEDS ORDERED: NITROGLYCERIN 0.4 MG SL TAB SL PRN (17:45)
[2021-10-28] MEDS ORDERED: HEPARIN SODIUM (PORCINE) 5000 UNITS/ML 1ML VIAL SC SCH (17:45)
[2021-10-28] MEDS ORDERED: ALBUTEROL SULF HFA 90MCG INH 200DOSE IN PRN (17:45)
[2021-10-28] MEDS ORDERED: LABETALOL HCL 5 MG/ML 4ML SYRINGE IV PRN (17:45)
[2021-10-28 18:00] VITALS: BP 208/117
[2021-10-28] MEDS ORDERED: LABETALOL HCL 5 MG/ML 4ML SYRINGE IV ONE (18:30)
[2021-10-28 19:06] LABS: BUN/Creatinine Ratio 7.2; Calcium 8.6 mg/dL (8.5-10.1); Potassium 5.1 mmol/L (3.5-5.1)
[2021-10-28] MEDS: CALCIUM ACETATE 667 MG CAP PO SCH (20:11)
[2021-10-28] MEDS: hydrALAZINE HCL 20 MG/ML VL IV PRN (20:59)
[2021-10-28] MEDS: MORPHINE SULFATE INJ 2 MG/ml SYRG IV PRN (21:11)
[2021-10-28] MEDS ORDERED: PATIENTS OWN MEDICATION (Atorvastatin Calcium 1 TAB) PO SCH (22:00)
[2021-10-28] MEDS ORDERED: INSULIN LISPRO (HUMAN) 100 UNITS/ML ML SC SCH (22:00)
[2021-10-28] MEDS ORDERED: PATIENTS OWN MEDICATION (Hydralazine Hcl 1 TAB) PO SCH (22:00)
[2021-10-28] MEDS: InsuLIN REG 1unit/0.01ml Soln (100units/ml) SC SCH (22:00)
[2021-10-28] MEDS ORDERED: FLUTICASONE PROPIONATE IN SCH (22:00)
[2021-10-28] MEDS: INSULIN LANTUS (GLARGINE) 1 /0.01ml (100units/ml) SC SCH ×2 (22:00→22:19)
[2021-10-28] MEDS: ACCU-CHEK COMFORT CURVE STRIP VI SCH (22:13)
[2021-10-28] MEDS: METOPROLOL SUCCINATE XL 50 MG TAB PO SCH (22:24)
[2021-10-28] MEDS: TICAGRELOR 90 MG TAB PO SCH (22:25)
[2021-10-28] MEDS: FUROSEMIDE 100 MG/10ML VIAL IV SCH (22:26)
[2021-10-28 23:09] LABS: Calcium 8.5 mg/dL (8.5-10.1); Potassium 4.8 mmol/L (3.5-5.1)
[2021-10-28 23:12] LABS: BUN/Creatinine Ratio 7.3
[2021-10-29 03:55] LABS: Calcium 8.5 mg/dL (8.5-10.1); Potassium 5.1 mmol/L (3.5-5.1)
[2021-10-29 03:57] LABS: BUN/Creatinine Ratio 7.4
[2021-10-29] MEDS ORDERED: SODIUM CHL 0.9% 1000 ML BAG XX ONE (05:15)
[2021-10-29] MEDS: ACCU-CHEK COMFORT CURVE STRIP VI SCH ×4 (06:35→22:02)
[2021-10-29] MEDS: hydrALAZINE HCL 20 MG/ML VL IV PRN (06:40)
[2021-10-29] MEDS: InsuLIN REG 1unit/0.01ml Soln (100units/ml) SC SCH ×4 (06:41→22:00)
[2021-10-29] MEDS ORDERED: PATIENTS OWN MEDICATION (Amlodipine Besylate 1 TAB) PO SCH (07:00)
[2021-10-29 07:23] LABS: BUN/Creatinine Ratio 7.5; Calcium 8.7 mg/dL (8.5-10.1); Potassium 3.7 mmol/L (3.5-5.1)
[2021-10-29] MEDS ORDERED: PATIENTS OWN MEDICATION (Nifedipine (Nifedipine Er) 1 TAB) PO SCH (10:00)
[2021-10-29] MEDS ORDERED: PATIENTS OWN MEDICATION (B-Complex W/ C & Folic Acid (Rena-Vite) 1 TAB) PO SCH (10:00)
[2021-10-29] MEDS: ASPirin-EC 81 mg tab PO SCH (10:07)
[2021-10-29] MEDS: CALCIUM ACETATE 667 MG CAP PO SCH ×3 (10:07→18:13)
[2021-10-29] MEDS: FUROSEMIDE 100 MG/10ML VIAL IV SCH ×2 (10:08→22:12)
[2021-10-29] MEDS: TICAGRELOR 90 MG TAB PO SCH ×2 (10:08→22:12)
[2021-10-29] MEDS: METOPROLOL SUCCINATE XL 50 MG TAB PO SCH ×2 (10:08→22:04)
[2021-10-29] MEDS: FERROUS SULFATE 325mg EC TAB PO SCH (10:09)
[2021-10-29] MEDS: MORPHINE SULFATE INJ 2 MG/ml SYRG IV PRN ×2 (10:20→22:12)
[2021-10-29] MEDS: BISACODYL 5 MG EC TAB PO PRN ×2 (14:09→22:25)
[2021-10-29 14:22] LABS: Calcium 8.7 mg/dL (8.5-10.1); Potassium 4.4 mmol/L (3.5-5.1)
[2021-10-29 14:25] LABS: BUN/Creatinine Ratio 5.6
[2021-10-29] MEDS: INSULIN LANTUS (GLARGINE) 1 /0.01ml (100units/ml) SC SCH (22:03)
[2021-10-30] VITALS (7 sets, daily range): BP systolic 143–163; BP diastolic 87–93
[2021-10-30] MEDS: MORPHINE SULFATE INJ 2 MG/ml SYRG IV PRN ×2 (01:24→10:11)
[2021-10-30] MEDS: InsuLIN REG 1unit/0.01ml Soln (100units/ml) SC SCH ×4 (06:00→22:00)
[2021-10-30] MEDS: ACCU-CHEK COMFORT CURVE STRIP VI SCH ×4 (06:00→22:30)
[2021-10-30] MEDS: CALCIUM ACETATE 667 MG CAP PO SCH ×3 (08:55→18:07)
[2021-10-30] MEDS: ASPirin-EC 81 mg tab PO SCH (08:55)
[2021-10-30] MEDS: FERROUS SULFATE 325mg EC TAB PO SCH (08:56)
[2021-10-30] MEDS: METOPROLOL SUCCINATE XL 50 MG TAB PO SCH ×2 (09:02→22:45)
[2021-10-30] MEDS: FUROSEMIDE 100 MG/10ML VIAL IV SCH ×2 (09:05→22:42)
[2021-10-30] MEDS: TICAGRELOR 90 MG TAB PO SCH ×2 (10:00→22:43)
[2021-10-30] MEDS ORDERED: LORazepam 2MG/ML-1ML VIAL IV PRN (10:15)
[2021-10-30] MEDS: GABAPENTIN 100 MG CAP PO SCH ×2 (14:06→22:44)
[2021-10-30] MEDS: hydrALAZINE HCL 25 MG TAB PO SCH ×2 (14:07→22:42)
[2021-10-30] MEDS: BISACODYL 5 MG EC TAB PO PRN (14:19)
[2021-10-30] MEDS: INSULIN LISPRO (HUMAN) 100 UNITS/ML ML SC SCH (17:00)
[2021-10-30] MEDS: INSULIN LANTUS (GLARGINE) 1 /0.01ml (100units/ml) SC SCH (22:00)
[2021-10-30] MEDS: ATORVASTATIN 20 MG TAB PO SCH (22:44)
[2021-10-30] MEDS: LACTULOSE 20Gm/30ML SOLN PO PRN (22:52)
[2021-10-31 05:00] VITALS: BP 160/94
[2021-10-31] MEDS: LACTULOSE 20Gm/30ML SOLN PO PRN ×2 (05:04→23:26)
[2021-10-31] MEDS: HYDROcodone-ACET 5/325MG TAB PO PRN ×2 (05:04→11:42)
[2021-10-31] MEDS: GABAPENTIN 100 MG CAP PO SCH ×3 (05:42→23:25)
[2021-10-31] MEDS: hydrALAZINE HCL 25 MG TAB PO SCH ×3 (05:42→23:24)
[2021-10-31] MEDS: ACCU-CHEK COMFORT CURVE STRIP VI SCH ×4 (06:10→23:23)
[2021-10-31] MEDS: InsuLIN REG 1unit/0.01ml Soln (100units/ml) SC SCH ×4 (06:12→23:18)
[2021-10-31] MEDS: INSULIN LISPRO (HUMAN) 100 UNITS/ML ML SC SCH ×3 (06:13→17:00)
[2021-10-31 06:41] LABS: Basophils # (auto) 0 10 ^3/uL (0-0.2); Eosinophils # (auto) 0.2 10 ^3/uL (0-0.8); Eosinophils % (auto) 3.9 % (0.0-7.0); Hematocrit 27.9 % (41.0-53.0); Hemoglobin 9.6 g/dL (13.5-17.5); Lymphocytes # (auto) 0.6 10 ^3/uL (0.4-5.4); Mean Corpuscular Hemoglobin 31.3 pg (28.0-32.0); Mean Corpuscular Hgb Conc. 34.5 g/dL (32.0-36.0); Mean Corpuscular Volume 90.6 fL (80.0-100.0); Monocytes # (auto) 0.4 10 ^3/uL (0-1.3); Monocytes % (auto) 9.7 % (0.0-12.0); Neutrophils # (auto) 3.1 10 ^3/uL (1.6-8.6); Neutrophils % (auto) 72.4 % (37.0-80.0); Red Blood Cells 3.08 10^6/uL (4.5-5.90); Red Cell Distribution Width 15.8 % (11.8-14.3); White Blood Cell 4.3 10^3/uL (4.4-10.8)
[2021-10-31] MEDS ORDERED: SODIUM CHL 0.9% 1000 ML BAG XX ONE (07:00)
[2021-10-31] MEDS: CALCIUM ACETATE 667 MG CAP PO SCH ×3 (08:00→18:00)
[2021-10-31 09:00] VITALS: BP 159/91
[2021-10-31] MEDS: B-COMPLEX W/ C & FOLIC ACID(NEPHROVITE TAB) PO SCH (10:00)
[2021-10-31] MEDS: FUROSEMIDE 100 MG/10ML VIAL IV SCH ×2 (10:01→23:24)
[2021-10-31] MEDS: FERROUS SULFATE 325mg EC TAB PO SCH (10:02)
[2021-10-31] MEDS: amLODIPine BESYLATE 5 MG TAB PO SCH (10:02)
[2021-10-31] MEDS: TICAGRELOR 90 MG TAB PO SCH ×2 (10:02→23:29)
[2021-10-31] MEDS: ASPirin-EC 81 mg tab PO SCH (10:02)
[2021-10-31] MEDS: METOPROLOL SUCCINATE XL 50 MG TAB PO SCH ×2 (10:03→23:25)
[2021-10-31 13:00] VITALS: BP 144/85
[2021-10-31] MEDS ORDERED: PIPERACILLIN-TAZOB 2.25GM 50 ML IV ONE (15:15)
[2021-10-31 17:00] VITALS: BP 143/80
[2021-10-31] MEDS ORDERED: PIPERACILLIN-TAZOB 0.75 GM in D5W 5% 50 ML IV SCH (18:00)
[2021-10-31 22:00] VITALS: BP 158/92
[2021-10-31] MEDS: PIPERACILLIN-TAZOB 2.25GM 50 ML IV SCH (23:23)
[2021-10-31] MEDS: ATORVASTATIN 20 MG TAB PO SCH (23:25)
[2021-10-31] MEDS: INSULIN LANTUS (GLARGINE) 1 /0.01ml (100units/ml) SC SCH (23:26)
[2021-11-01] VITALS (9 sets, daily range): BP systolic 134–177; BP diastolic 77–98
[2021-11-01] MEDS ORDERED: IOHEXOL 350 MG/ML 100ML IJ ONE (01:39)
[2021-11-01] MEDS: ACCU-CHEK COMFORT CURVE STRIP VI SCH ×4 (06:27→21:34)
[2021-11-01] MEDS: InsuLIN REG 1unit/0.01ml Soln (100units/ml) SC SCH ×4 (06:31→21:59)
[2021-11-01] MEDS: GABAPENTIN 100 MG CAP PO SCH ×3 (06:32→21:49)
[2021-11-01] MEDS: hydrALAZINE HCL 25 MG TAB PO SCH ×3 (06:32→21:49)
[2021-11-01] MEDS: INSULIN LISPRO (HUMAN) 100 UNITS/ML ML SC SCH ×3 (06:34→17:25)
[2021-11-01] MEDS: CALCIUM ACETATE 667 MG CAP PO SCH ×3 (08:16→18:28)
[2021-11-01] MEDS: FUROSEMIDE 100 MG/10ML VIAL IV SCH ×2 (09:36→21:49)
[2021-11-01] MEDS: ASPirin-EC 81 mg tab PO SCH (09:39)
[2021-11-01] MEDS: FERROUS SULFATE 325mg EC TAB PO SCH (09:39)
[2021-11-01] MEDS: B-COMPLEX W/ C & FOLIC ACID(NEPHROVITE TAB) PO SCH (09:39)
[2021-11-01] MEDS: PIPERACILLIN-TAZOB 2.25GM 50 ML IV SCH ×2 (09:39→21:55)
[2021-11-01] MEDS: METOPROLOL SUCCINATE XL 50 MG TAB PO SCH ×2 (09:40→21:49)
[2021-11-01] MEDS: amLODIPine BESYLATE 5 MG TAB PO SCH (09:40)
[2021-11-01] MEDS: TICAGRELOR 90 MG TAB PO SCH ×2 (09:42→21:50)
[2021-11-01] MEDS: ATORVASTATIN 20 MG TAB PO SCH (21:50)
[2021-11-01] MEDS: INSULIN LANTUS (GLARGINE) 1 /0.01ml (100units/ml) SC SCH (21:59)
[2021-11-01] MEDS: MORPHINE SULFATE INJ 2 MG/ml SYRG IV PRN (22:51)
[2021-11-02 05:00] VITALS: BP 145/82
[2021-11-02] MEDS: GABAPENTIN 100 MG CAP PO SCH ×3 (05:32→22:11)
[2021-11-02] MEDS: hydrALAZINE HCL 25 MG TAB PO SCH ×3 (05:32→22:10)
[2021-11-02] MEDS: InsuLIN REG 1unit/0.01ml Soln (100units/ml) SC SCH ×4 (07:00→22:00)
[2021-11-02] MEDS: INSULIN LISPRO (HUMAN) 100 UNITS/ML ML SC SCH ×3 (07:52→17:02)
[2021-11-02] MEDS: ACCU-CHEK COMFORT CURVE STRIP VI SCH ×4 (07:53→22:13)
[2021-11-02] MEDS: CALCIUM ACETATE 667 MG CAP PO SCH ×3 (08:02→18:42)
[2021-11-02 09:00] VITALS: BP 139/83
[2021-11-02] MEDS: B-COMPLEX W/ C & FOLIC ACID(NEPHROVITE TAB) PO SCH (10:16)
[2021-11-02] MEDS: ASPirin-EC 81 mg tab PO SCH (10:16)
[2021-11-02] MEDS: FERROUS SULFATE 325mg EC TAB PO SCH (10:16)
[2021-11-02] MEDS: FUROSEMIDE 100 MG/10ML VIAL IV SCH ×2 (10:16→22:10)
[2021-11-02] MEDS: PIPERACILLIN-TAZOB 2.25GM 50 ML IV SCH ×2 (10:16→22:11)
[2021-11-02] MEDS: TICAGRELOR 90 MG TAB PO SCH ×2 (10:16→22:11)
[2021-11-02] MEDS: METOPROLOL SUCCINATE XL 50 MG TAB PO SCH ×2 (10:17→22:12)
[2021-11-02] MEDS: amLODIPine BESYLATE 5 MG TAB PO SCH (10:17)
[2021-11-02] MEDS: HYDROcodone-ACET 5/325MG TAB PO PRN ×2 (10:46→17:49)
[2021-11-02 13:00] VITALS: BP 138/80
[2021-11-02 16:49] VITALS: BP 133/78
[2021-11-02] MEDS: LACTULOSE 20Gm/30ML SOLN PO PRN (17:48)
[2021-11-02] MEDS: SEVELAMER 800 MG TAB PO SCH (18:43)
[2021-11-02 20:00] VITALS: BP 143/83
[2021-11-02 22:00] VITALS: BP 143/83
[2021-11-02] MEDS: ATORVASTATIN 20 MG TAB PO SCH (22:11)
[2021-11-02] MEDS: INSULIN LANTUS (GLARGINE) 1 /0.01ml (100units/ml) SC SCH (22:13)
[2021-11-03] MEDS: HYDROcodone-ACET 5/325MG TAB PO PRN ×3 (01:16→17:36)
[2021-11-03] MEDS: LACTULOSE 20Gm/30ML SOLN PO PRN ×2 (03:48→09:28)
[2021-11-03 05:00] VITALS: BP 149/86
[2021-11-03] MEDS: GABAPENTIN 100 MG CAP PO SCH ×3 (05:08→22:46)
[2021-11-03] MEDS: hydrALAZINE HCL 25 MG TAB PO SCH ×4 (05:08→22:45)
[2021-11-03] MEDS: ACCU-CHEK COMFORT CURVE STRIP VI SCH ×4 (06:52→22:46)
[2021-11-03] MEDS: InsuLIN REG 1unit/0.01ml Soln (100units/ml) SC SCH ×4 (06:53→22:00)
[2021-11-03] MEDS ORDERED: SODIUM CHL 0.9% 1000 ML BAG XX ONE (07:00)
[2021-11-03] MEDS: INSULIN LISPRO (HUMAN) 100 UNITS/ML ML SC SCH ×3 (07:05→17:39)
[2021-11-03] MEDS: PIPERACILLIN-TAZOB 2.25GM 50 ML IV SCH ×2 (08:20→22:45)
[2021-11-03] MEDS: CALCIUM ACETATE 667 MG CAP PO SCH ×3 (08:20→17:37)
[2021-11-03] MEDS: SEVELAMER 800 MG TAB PO SCH ×3 (08:20→17:37)
[2021-11-03] MEDS: FERROUS SULFATE 325mg EC TAB PO SCH (08:20)
[2021-11-03] MEDS: TICAGRELOR 90 MG TAB PO SCH ×2 (08:20→22:45)
[2021-11-03] MEDS: ASPirin-EC 81 mg tab PO SCH (08:21)
[2021-11-03] MEDS: B-COMPLEX W/ C & FOLIC ACID(NEPHROVITE TAB) PO SCH (08:21)
[2021-11-03 09:05] VITALS: BP 150/84
[2021-11-03] MEDS: METOPROLOL SUCCINATE XL 50 MG TAB PO SCH ×2 (10:00→22:46)
[2021-11-03] MEDS: amLODIPine BESYLATE 5 MG TAB PO SCH (10:00)
[2021-11-03] MEDS: FUROSEMIDE 100 MG/10ML VIAL IV SCH ×2 (10:00→22:48)
[2021-11-03] MEDS ORDERED: LEVO500T31 PO (10:28)
[2021-11-03] MEDS ORDERED: SEVE400T PO (10:54)
[2021-11-03 13:00] VITALS: BP 145/80
[2021-11-03 17:00] VITALS: BP 171/99
[2021-11-03 18:42] VITALS: BP 153/81
[2021-11-03 22:00] VITALS: BP 147/79
[2021-11-03] MEDS: ATORVASTATIN 20 MG TAB PO SCH (22:45)
[2021-11-03] MEDS: INSULIN LANTUS (GLARGINE) 1 /0.01ml (100units/ml) SC SCH (22:47)
[2021-11-04] MEDS: HYDROcodone-ACET 5/325MG TAB PO PRN ×2 (02:20→08:12)
[2021-11-04] MEDS: BISACODYL 5 MG EC TAB PO PRN (04:03)
[2021-11-04 05:00] VITALS: BP 151/81
[2021-11-04] MEDS: hydrALAZINE HCL 25 MG TAB PO SCH (06:07)
[2021-11-04] MEDS: GABAPENTIN 100 MG CAP PO SCH (06:07)
[2021-11-04] MEDS: InsuLIN REG 1unit/0.01ml Soln (100units/ml) SC SCH (06:44)
[2021-11-04] MEDS: ACCU-CHEK COMFORT CURVE STRIP VI SCH (06:44)
[2021-11-04] MEDS: INSULIN LISPRO (HUMAN) 100 UNITS/ML ML SC SCH (07:00)
[2021-11-04] MEDS: CALCIUM ACETATE 667 MG CAP PO SCH (08:00)
[2021-11-04] MEDS: SEVELAMER 800 MG TAB PO SCH (08:00)
[2021-11-04 08:34] VITALS: BP 168/91
[2021-11-04] MEDS: amLODIPine BESYLATE 5 MG TAB PO SCH (09:40)
[2021-11-04] MEDS: METOPROLOL SUCCINATE XL 50 MG TAB PO SCH (09:40)
== END 2021-11-04 10:00 | disposition home or self-care (01) | DRG 137 ==
LOC: ER 12:57 → TELE 17:45 → TELE-CENTR 10-29 23:11
PROVIDERS: ADMIT Internal Medicine; ATTEND Internal Medicine
PROC: 5A1D70Z Performance of Urinary Filtration, Intermittent, Less than 6 Hours Per Day (ICD-10-PCS; principal; 2021-10-29)
PROC: 5A1D70Z Performance of Urinary Filtration, Intermittent, Less than 6 Hours Per Day (ICD-10-PCS; 2021-10-31)
PROC: 5A1D70Z Performance of Urinary Filtration, Intermittent, Less than 6 Hours Per Day (ICD-10-PCS; 2021-11-03)
DX: J15.6 Pneumonia due to other Gram-negative bacteria (principal); J96.00 Acute respiratory failure, unspecified whether with hypoxia or hypercapnia; I50.43 Acute on chronic combined systolic (congestive) and diastolic (congestive) heart failure; I27.20 Pulmonary hypertension, unspecified; N18.6 End stage renal disease; D63.1 Anemia in chronic kidney disease; E83.39 Other disorders of phosphorus metabolism; E11.22 Type 2 diabetes mellitus with diabetic chronic kidney disease; I13.2 Hypertensive heart and chronic kidney disease with heart failure and with stage 5 chronic kidney disease, or end stage renal disease; I16.1 Hypertensive emergency; E87.5 Hyperkalemia; Z99.2 Dependence on renal dialysis; I16.0 Hypertensive urgency; I25.10 Atherosclerotic heart disease of native coronary artery without angina pectoris; E11.40 Type 2 diabetes mellitus with diabetic neuropathy, unspecified; Z20.822 Contact with and (suspected) exposure to COVID-19; F17.200 Nicotine dependence, unspecified, uncomplicated; I95.1 Orthostatic hypotension; Z79.899 Other long term (current) drug therapy; Z82.49 Family history of ischemic heart disease and other diseases of the circulatory system; I25.2 Old myocardial infarction; Z83.3 Family history of diabetes mellitus; Z95.5 Presence of coronary angioplasty implant and graft; Z95.810 Presence of automatic (implantable) cardiac defibrillator
CPT/HCPCS: 36415; 70450; 70551; 71045; 71275; 80048; 80053; 82962; 83735; 83880; 84100; 84443; 84484; 85025; 85610; 85730; 87081; 90935; 93005; 93306; 93971; 95819; 96365; 96375; 97116; 97163; 97530; 99291; G0378; J1815; J2543; J3490

== ENCOUNTER 2022-08-22 15:37 | Inpatient (IN) | payer MEDICARE, MEDICAID ==
[~2022-08-22] VITALS: Ht 172.7 cm; Wt 75.1 kg
[~2022-08-22 15:37] MED LIST changes: -DOX100T PO; -FER325T PO; -FLUT110A INH; +LACT10SO70 PO; -PRED20TA2 PO; +SEVE400T PO
[2022-08-22] MEDS ORDERED: ALBUTEROL SULF 2.5 MG/0.5ML(0.5%) NEB SOLN NEB ONE (16:00)
[2022-08-22] MEDS ORDERED: DexAMETHasone SOD PHOS 10MG/1ML VIAL INJ IM ONE (16:00)
[2022-08-22] MEDS ORDERED: IPRATROPIUM BROM 0.5 MG/2.5ML INH SOL NEB ONE (16:00)
[2022-08-22 16:29] LABS: Basophils # (auto) 0 10 ^3/uL (0-0.2); Basophils % (auto) 0.7 % (0.0-2.0); Eosinophils # (auto) 0.2 10 ^3/uL (0-0.8); Eosinophils % (auto) 3.3 % (0.0-7.0); Lymphocytes # (auto) 0.7 10 ^3/uL (0.4-5.4); Lymphocytes % (auto) 14.6 % (10.0-50.0); Mean Corpuscular Hemoglobin 32.3 pg (28.0-32.0); Mean Corpuscular Hgb Conc. 34.3 g/dL (32.0-36.0); Mean Corpuscular Volume 94.2 fL (80.0-100.0); Monocytes # (auto) 0.3 10 ^3/uL (0-1.3); Monocytes % (auto) 7.3 % (0.0-12.0); Neutrophils # (auto) 3.4 10 ^3/uL (1.6-8.6); Neutrophils % (auto) 74.1 % (37.0-80.0); Nucleated Red Blood Cells % 0.1 %; Red Blood Cells 3.39 10^6/uL (4.5-5.90); Red Cell Distribution Width 15.4 % (11.8-14.3); White Blood Cell 4.6 10^3/uL (4.4-10.8)
[2022-08-22] MEDS ORDERED: AZITHROMYCIN 500MG/ 250ML 250 ML IV ONE (16:45)
[2022-08-22] MEDS ORDERED: HYDROcodone-ACET 5/325MG TAB PO ONE (16:45)
[2022-08-22 16:56] LABS: Albumin 4.1 g/dL (3.4-5.0); Calcium 8.9 mg/dL (8.5-10.1); Magnesium 3.6 mg/dL (1.6-2.6)
[2022-08-22 17:02] LABS: Bilirubin, Total 0.5 mg/dL (0.2-1.0); Total Protein 6.9 g/dL (6.4-8.2)
[2022-08-22 17:10] LABS: Potassium 6.7 mmol/L (3.5-5.1)
[2022-08-22 17:16] LABS: BUN/Creatinine Ratio 6.2 (10.0-20.0)
[2022-08-22] MEDS ORDERED: HYDROcodone-ACET 10/325MG TAB PO ONE (18:00)
[2022-08-22] MEDS ORDERED: ALPRAZolam 0.5 MG TAB PO ONE (18:00)
[2022-08-22] MEDS ORDERED: FUROSEMIDE 40 MG/4 ML VIAL IV ONE (19:15)
[2022-08-22] MEDS ORDERED: CALCIUM GLUC 1,000mg/50ml-NS 50 ML IV ONE (19:15)
[2022-08-22] MEDS ORDERED: DEXTROSE 10% 250 ML IV ONE (20:00)
[2022-08-22] MEDS ORDERED: INSULIN LISPRO (HUMAN) 100 UNITS/ML ML SC ONE (20:00)
[2022-08-22] MEDS ORDERED: ALBUTEROL SULF 2.5 MG/0.5ML(0.5%) NEB SOLN NEB PRN (22:15)
[2022-08-22] MEDS ORDERED: ONDANSETRON HCL 4 MG/2 ML VIAL IV PRN (22:15)
[2022-08-22] MEDS ORDERED: ALPRAZolam 0.5 MG TAB PO PRN (22:15)
[2022-08-22] MEDS ORDERED: IPRATROPIUM BROM 0.5 MG/2.5ML INH SOL NEB PRN (22:15)
[2022-08-22] MEDS ORDERED: DEXTROSE (50%) 50ML SYRG IV PRN (22:15)
[2022-08-22 22:33] VITALS: BP 178/93
[2022-08-22] MEDS ORDERED: MORPHINE SULFATE INJ 2 MG/ml SYRG IV PRN (23:15)
[2022-08-22] MEDS ORDERED: NITROGLYCERIN 0.4 MG SL TAB SL PRN (23:15)
[2022-08-23 00:11] LABS: Albumin 3.9 g/dL (3.4-5.0); BUN/Creatinine Ratio 6.3 (10.0-20.0)
[2022-08-23 00:22] LABS: Bilirubin, Total 0.5 mg/dL (0.2-1.0); Total Protein 7.8 g/dL (6.4-8.2)
[2022-08-23 00:49] LABS: Potassium 5.9 mmol/L (3.5-5.1)
[2022-08-23] MEDS: MORPHINE SULFATE INJ 2 MG/ml SYRG IV PRN ×3 (04:42→20:32)
[2022-08-23] MEDS ORDERED: SODIUM CHL 0.9% 1000 ML BAG XX ONE (05:30)
[2022-08-23] MEDS: SODIUM CHLOR 0.9% PF (SALINE LOCK) 10ML VIAL/SYR IV SCH ×3 (06:00→22:23)
[2022-08-23 06:04] LABS: Basophils # (auto) 0 10 ^3/uL (0-0.2); Basophils % (auto) 0.5 % (0.0-2.0); Eosinophils # (auto) 0 10 ^3/uL (0-0.8); Eosinophils % (auto) 0.1 % (0.0-7.0); Hematocrit 31.2 % (41.0-53.0); Hemoglobin 10.6 g/dL (13.5-17.5); Lymphocytes # (auto) 0.4 10 ^3/uL (0.4-5.4); Lymphocytes % (auto) 10.6 % (10.0-50.0); Mean Corpuscular Hgb Conc. 33.9 g/dL (32.0-36.0); Mean Corpuscular Volume 94.3 fL (80.0-100.0); Monocytes # (auto) 0.1 10 ^3/uL (0-1.3); Monocytes % (auto) 2.3 % (0.0-12.0); Neutrophils # (auto) 3.2 10 ^3/uL (1.6-8.6); Neutrophils % (auto) 86.5 % (37.0-80.0); Red Blood Cells 3.31 10^6/uL (4.5-5.90); Red Cell Distribution Width 14.8 % (11.8-14.3); White Blood Cell 3.7 10^3/uL (4.4-10.8)
[2022-08-23 06:17] LABS: Potassium 5.5 mmol/L (3.5-5.1)
[2022-08-23 06:21] LABS: Albumin 3.5 g/dL (3.4-5.0); BUN/Creatinine Ratio 6.6 (10.0-20.0); Calcium 8.4 mg/dL (8.5-10.1)
[2022-08-23 06:37] LABS: Bilirubin, Total 0.5 mg/dL (0.2-1.0); Total Protein 6.8 g/dL (6.4-8.2)
[2022-08-23] MEDS: InsuLIN REG 1unit/0.01ml Soln (100units/ml) SC SCH ×4 (07:05→22:22)
[2022-08-23] MEDS: ACCU-CHEK COMFORT CURVE STRIP VI SCH ×4 (07:05→22:23)
[2022-08-23] MEDS: B-COMPLEX W/ C & FOLIC ACID(NEPHROVITE TAB) PO SCH (08:14)
[2022-08-23] MEDS: DexAMETHasone SOD PHOS 10MG/1ML VIAL INJ IV SCH (08:14)
[2022-08-23] MEDS: SEVELAMER 800 MG TAB PO SCH ×3 (08:14→18:30)
[2022-08-23] MEDS: ASPirin 81 mg TAB PO SCH (08:14)
[2022-08-23] MEDS: FAMOTIDINE (10MG/ML) 2ML VL IV SCH ×2 (08:14→22:20)
[2022-08-23] MEDS: ZINC SULFATE 220mg CAP or TAB PO SCH (08:14)
[2022-08-23] MEDS: AZITHROMYCIN 500MG/ 250ML 250 ML IV SCH (08:15)
[2022-08-23] MEDS: HEPARIN SODIUM (PORCINE) 5000 UNITS/ML 1ML VIAL SC SCH ×2 (08:33→22:21)
[2022-08-23 10:05] VITALS: BP 182/99
[2022-08-23] MEDS: hydrALAZINE HCL 20 MG/ML VL IV PRN (11:03)
[2022-08-23] MEDS ORDERED: cefTRIAXone 1GM/50ML D5W 50 ML IV ONE (12:15)
[2022-08-23 13:00] VITALS: BP 182/98
[2022-08-23] MEDS ORDERED: NIFEdipine ER 30 MG TAB PO ONE (16:00)
[2022-08-23 17:00] VITALS: BP 181/102
[2022-08-23 22:00] VITALS: BP 162/90
[2022-08-23] MEDS: ATORVASTATIN 20 MG TAB PO SCH (22:20)
[2022-08-23] MEDS: METOPROLOL SUCCINATE XL 50 MG TAB PO SCH (22:20)
[2022-08-23] MEDS: HYDROcodone-ACET 5/325MG TAB PO PRN (22:40)
[2022-08-24 05:00] VITALS: BP 139/76
[2022-08-24] MEDS: SODIUM CHLOR 0.9% PF (SALINE LOCK) 10ML VIAL/SYR IV SCH ×3 (06:00→21:13)
[2022-08-24] MEDS: InsuLIN REG 1unit/0.01ml Soln (100units/ml) SC SCH ×4 (06:40→21:11)
[2022-08-24] MEDS: HYDROcodone-ACET 5/325MG TAB PO PRN ×2 (06:41→18:14)
[2022-08-24] MEDS: ACCU-CHEK COMFORT CURVE STRIP VI SCH ×4 (06:47→21:13)
[2022-08-24] MEDS: SEVELAMER 800 MG TAB PO SCH ×3 (09:01→17:29)
[2022-08-24] MEDS: cefTRIAXone 1GM/50ML D5W 50 ML IV SCH (09:02)
[2022-08-24] MEDS: B-COMPLEX W/ C & FOLIC ACID(NEPHROVITE TAB) PO SCH (09:02)
[2022-08-24] MEDS: ZINC SULFATE 220mg CAP or TAB PO SCH (09:02)
[2022-08-24] MEDS: ASPirin 81 mg TAB PO SCH (09:02)
[2022-08-24] MEDS: NIFEdipine ER 30 MG TAB PO SCH (09:03)
[2022-08-24] MEDS: FAMOTIDINE (10MG/ML) 2ML VL IV SCH ×2 (09:04→21:13)
[2022-08-24] MEDS: METOPROLOL SUCCINATE XL 50 MG TAB PO SCH ×2 (09:04→21:12)
[2022-08-24] MEDS: DexAMETHasone SOD PHOS 10MG/1ML VIAL INJ IV SCH (09:04)
[2022-08-24] MEDS: HEPARIN SODIUM (PORCINE) 5000 UNITS/ML 1ML VIAL SC SCH ×2 (09:10→21:12)
[2022-08-24 10:00] VITALS: BP 151/77
[2022-08-24] MEDS: AZITHROMYCIN 500MG/ 250ML 250 ML IV SCH (10:11)
[2022-08-24 12:55] VITALS: BP 131/76
[2022-08-24 17:04] VITALS: BP 144/102
[2022-08-24] MEDS: ACETAMINOPHEN 325 MG TAB PO PRN (21:11)
[2022-08-24] MEDS: ATORVASTATIN 20 MG TAB PO SCH (21:13)
[2022-08-24] MEDS: DOCUSATE SOD 100 MG CAP PO PRN (21:16)
[2022-08-24 22:00] VITALS: BP 139/73
[2022-08-25] MEDS: HYDROcodone-ACET 5/325MG TAB PO PRN ×3 (00:11→23:38)
[2022-08-25 05:00] VITALS: BP 136/72
[2022-08-25] MEDS: InsuLIN REG 1unit/0.01ml Soln (100units/ml) SC SCH ×4 (06:11→21:31)
[2022-08-25] MEDS: SODIUM CHLOR 0.9% PF (SALINE LOCK) 10ML VIAL/SYR IV SCH ×3 (06:17→21:31)
[2022-08-25] MEDS ORDERED: SODIUM CHL 0.9% 1000 ML BAG XX ONE ×2 (07:00→15:45)
[2022-08-25 09:00] VITALS: BP 153/88
[2022-08-25] MEDS ORDERED: LACTULOSE 20Gm/30ML SOLN PO ONE (09:30)
[2022-08-25] MEDS: SEVELAMER 800 MG TAB PO SCH ×3 (09:43→17:48)
[2022-08-25] MEDS: FAMOTIDINE (10MG/ML) 2ML VL IV SCH ×2 (09:44→23:38)
[2022-08-25] MEDS: DexAMETHasone SOD PHOS 10MG/1ML VIAL INJ IV SCH (09:44)
[2022-08-25] MEDS: B-COMPLEX W/ C & FOLIC ACID(NEPHROVITE TAB) PO SCH (09:44)
[2022-08-25] MEDS: ASPirin 81 mg TAB PO SCH (09:44)
[2022-08-25] MEDS: ZINC SULFATE 220mg CAP or TAB PO SCH (09:44)
[2022-08-25] MEDS: NIFEdipine ER 30 MG TAB PO SCH (09:44)
[2022-08-25] MEDS: METOPROLOL SUCCINATE XL 50 MG TAB PO SCH ×2 (09:44→21:31)
[2022-08-25] MEDS: cefTRIAXone 1GM/50ML D5W 50 ML IV SCH (09:45)
[2022-08-25] MEDS: ACCU-CHEK COMFORT CURVE STRIP VI SCH ×4 (09:49→21:31)
[2022-08-25] MEDS: HEPARIN SODIUM (PORCINE) 5000 UNITS/ML 1ML VIAL SC SCH ×2 (10:00→21:30)
[2022-08-25] MEDS: AZITHROMYCIN 500MG/ 250ML 250 ML IV SCH (10:33)
[2022-08-25 10:37] LABS: Potassium 4.9 mmol/L (3.5-5.1)
[2022-08-25 10:46] LABS: BUN/Creatinine Ratio 6.2 (10.0-20.0); Calcium 8.6 mg/dL (8.5-10.1)
[2022-08-25 13:00] VITALS: BP 139/87
[2022-08-25 17:00] VITALS: BP 166/91
[2022-08-25] MEDS ORDERED: EPOETIN ALFA-EPBX 4,000 UNIT/ML VIAL SC ONE (21:00)
[2022-08-25] MEDS: ATORVASTATIN 20 MG TAB PO SCH (21:30)
[2022-08-25] MEDS: ACETAMINOPHEN 325 MG TAB PO PRN (21:39)
[2022-08-25 22:00] VITALS: BP 175/92
[2022-08-26 05:00] VITALS: BP 154/99
[2022-08-26] MEDS: SODIUM CHLOR 0.9% PF (SALINE LOCK) 10ML VIAL/SYR IV SCH ×3 (06:00→21:37)
[2022-08-26] MEDS: InsuLIN REG 1unit/0.01ml Soln (100units/ml) SC SCH ×4 (07:00→21:38)
[2022-08-26] MEDS: ACCU-CHEK COMFORT CURVE STRIP VI SCH ×4 (07:14→21:38)
[2022-08-26] MEDS: B-COMPLEX W/ C & FOLIC ACID(NEPHROVITE TAB) PO SCH (08:46)
[2022-08-26] MEDS: ZINC SULFATE 220mg CAP or TAB PO SCH (08:46)
[2022-08-26] MEDS: ASPirin 81 mg TAB PO SCH (08:46)
[2022-08-26] MEDS: SEVELAMER 800 MG TAB PO SCH ×3 (08:46→17:07)
[2022-08-26] MEDS: HYDROcodone-ACET 5/325MG TAB PO PRN ×2 (08:47→19:51)
[2022-08-26] MEDS: FAMOTIDINE (10MG/ML) 2ML VL IV SCH ×2 (08:47→21:34)
[2022-08-26] MEDS: DexAMETHasone SOD PHOS 10MG/1ML VIAL INJ IV SCH (08:47)
[2022-08-26] MEDS: cefTRIAXone 1GM/50ML D5W 50 ML IV SCH (08:48)
[2022-08-26 09:00] VITALS: BP 155/85
[2022-08-26] MEDS: AZITHROMYCIN 500MG/ 250ML 250 ML IV SCH (09:19)
[2022-08-26] MEDS: HEPARIN SODIUM (PORCINE) 5000 UNITS/ML 1ML VIAL SC SCH ×2 (10:00→22:00)
[2022-08-26] MEDS: METOPROLOL SUCCINATE XL 50 MG TAB PO SCH ×2 (10:00→21:37)
[2022-08-26] MEDS: NIFEdipine ER 30 MG TAB PO SCH (10:00)
[2022-08-26 13:00] VITALS: BP 158/90
[2022-08-26 17:00] VITALS: BP 144/88
[2022-08-26] MEDS: ATORVASTATIN 20 MG TAB PO SCH (21:34)
[2022-08-26 22:00] VITALS: BP 178/99
[2022-08-26 22:45] VITALS: BP 151/71
[2022-08-27 05:00] VITALS: BP 168/97
[2022-08-27] MEDS: hydrALAZINE HCL 20 MG/ML VL IV PRN ×2 (05:58→12:53)
[2022-08-27] MEDS: SODIUM CHLOR 0.9% PF (SALINE LOCK) 10ML VIAL/SYR IV SCH ×2 (06:02→14:00)
[2022-08-27] MEDS: HYDROcodone-ACET 5/325MG TAB PO PRN ×2 (06:35→12:54)
[2022-08-27] MEDS: ACCU-CHEK COMFORT CURVE STRIP VI SCH ×2 (06:40→11:45)
[2022-08-27] MEDS: InsuLIN REG 1unit/0.01ml Soln (100units/ml) SC SCH ×2 (06:40→11:46)
[2022-08-27 08:00] VITALS: BP 146/70
[2022-08-27] MEDS: DexAMETHasone SOD PHOS 10MG/1ML VIAL INJ IV SCH (09:44)
[2022-08-27] MEDS: AZITHROMYCIN 500MG/ 250ML 250 ML IV SCH (09:44)
[2022-08-27] MEDS: FAMOTIDINE (10MG/ML) 2ML VL IV SCH (09:44)
[2022-08-27] MEDS: cefTRIAXone 1GM/50ML D5W 50 ML IV SCH (09:44)
[2022-08-27] MEDS: SEVELAMER 800 MG TAB PO SCH ×2 (09:44→11:47)
[2022-08-27] MEDS: ASPirin 81 mg TAB PO SCH (09:44)
[2022-08-27] MEDS: B-COMPLEX W/ C & FOLIC ACID(NEPHROVITE TAB) PO SCH (09:44)
[2022-08-27] MEDS: ZINC SULFATE 220mg CAP or TAB PO SCH (09:44)
[2022-08-27] MEDS: DOCUSATE SOD 100 MG CAP PO PRN (09:45)
[2022-08-27] MEDS: NIFEdipine ER 30 MG TAB PO SCH (09:45)
[2022-08-27] MEDS: METOPROLOL SUCCINATE XL 50 MG TAB PO SCH (09:45)
[2022-08-27] MEDS: HEPARIN SODIUM (PORCINE) 5000 UNITS/ML 1ML VIAL SC SCH (09:58)
[2022-08-27] MEDS ORDERED: HYDR-4902 PO (10:42)
[2022-08-27] MEDS ORDERED: AZIT500T66 PO (10:42)
[2022-08-27] MEDS ORDERED: LACTULOSE 20Gm/30ML SOLN PO ONE (11:45)
[2022-08-27 12:00] VITALS: BP 180/101
[2022-08-27 13:40] VITALS: BP 180/101
== END 2022-08-27 16:34 | disposition home or self-care (01) | DRG 177 ==
LOC: ER 15:37 → TELE 08-23 00:11 → TELE-EAST 08-23 10:07
PROVIDERS: ADMIT Nurse Practitioner Family; ATTEND Family Medicine
PROC: 5A1D70Z Performance of Urinary Filtration, Intermittent, Less than 6 Hours Per Day (ICD-10-PCS; principal; 2022-08-23)
PROC: 5A1D70Z Performance of Urinary Filtration, Intermittent, Less than 6 Hours Per Day (ICD-10-PCS; 2022-08-25)
PROC: 5A1D70Z Performance of Urinary Filtration, Intermittent, Less than 6 Hours Per Day (ICD-10-PCS; 2022-08-26)
DX: J15.6 Pneumonia due to other Gram-negative bacteria (principal); I50.43 Acute on chronic combined systolic (congestive) and diastolic (congestive) heart failure; J96.01 Acute respiratory failure with hypoxia; N18.6 End stage renal disease; I13.2 Hypertensive heart and chronic kidney disease with heart failure and with stage 5 chronic kidney disease, or end stage renal disease; E87.20 Acidosis, unspecified; J45.901 Unspecified asthma with (acute) exacerbation; J15.9 Unspecified bacterial pneumonia; D63.1 Anemia in chronic kidney disease; E11.22 Type 2 diabetes mellitus with diabetic chronic kidney disease; E87.5 Hyperkalemia; I25.10 Atherosclerotic heart disease of native coronary artery without angina pectoris; E78.5 Hyperlipidemia, unspecified; E83.39 Other disorders of phosphorus metabolism; F32.A Depression, unspecified; G89.29 Other chronic pain; Z83.3 Family history of diabetes mellitus; Z82.49 Family history of ischemic heart disease and other diseases of the circulatory system; I25.2 Old myocardial infarction; Z99.2 Dependence on renal dialysis; Z95.5 Presence of coronary angioplasty implant and graft; Z95.0 Presence of cardiac pacemaker; Z91.199 Patient's noncompliance with other medical treatment and regimen due to unspecified reason
CPT/HCPCS: 36415; 71046; 71250; 80048; 80053; 82962; 83036; 83735; 83880; 84484; 85025; 85379; 87081; 87426; 90935; 93306; 93925; 93970; 94640; 96365; 96367; 96372; 96375; 97163; G0378; J0696; J1100; J1815; J3490

== ENCOUNTER 2022-12-07 16:39 | Inpatient (IN) | payer MEDICARE, MEDICAID ==
[~2022-12-07] VITALS: Ht 172.7 cm; Wt 75.1 kg
[~2022-12-07 16:39] MED LIST changes: -AMLO-496 PO; +AZIT500T66 PO; +HYDR-4297 PO; +HYDR-4902 PO; -HYDR50TA15 PO; -NIFE90TA49 PO; +NIFE90TA75 PO
[2022-12-07 17:41] LABS: Basophils # (auto) 0.1 10 ^3/uL (0-0.2); Basophils % (auto) 1.2 % (0.0-2.0); Eosinophils # (auto) 0.2 10 ^3/uL (0-0.8); Hematocrit 25.4 % (41.0-53.0); Hemoglobin 8.6 g/dL (13.5-17.5); Lymphocytes # (auto) 0.8 10 ^3/uL (0.4-5.4); Lymphocytes % (auto) 11.7 % (10.0-50.0); Mean Corpuscular Hemoglobin 31.8 pg (28.0-32.0); Mean Corpuscular Hgb Conc. 33.9 g/dL (32.0-36.0); Mean Corpuscular Volume 93.8 fL (80.0-100.0); Monocytes # (auto) 0.5 10 ^3/uL (0-1.3); Monocytes % (auto) 7.2 % (0.0-12.0); Neutrophils # (auto) 5.2 10 ^3/uL (1.6-8.6); Neutrophils % (auto) 76.9 % (37.0-80.0); Nucleated Red Blood Cells % 0.1 %; Red Blood Cells 2.71 10^6/uL (4.5-5.90); Red Cell Distribution Width 14.5 % (11.8-14.3); White Blood Cell 6.7 10^3/uL (4.4-10.8)
[2022-12-07 17:58] LABS: INR 1.09 (0.9-1.15); Partial Thromboplastin Time 29.1 SEC (24.5-34.5); Prothrombin Time 11.4 sec (9.3-11.8)
[2022-12-07 18:00] LABS: Albumin 3.8 g/dL (3.4-5.0); Calcium 9.1 mg/dL (8.7-10.4)
[2022-12-07 18:11] LABS: BUN/Creatinine Ratio 6.9 (10.0-20.0); Bilirubin, Total 0.4 mg/dL (0.2-1.0); Total Protein 6.8 g/dL (6.4-8.2)
[2022-12-07 18:15] LABS: Potassium 7.1 mmol/L (3.5-5.1)
[2022-12-07] MEDS ORDERED: SODIUM BICARBONATE 8.4 % INJ 50ML VIAL IV ONE (18:30)
[2022-12-07] MEDS ORDERED: MORPHINE SULFATE 4 MG/ML SYR/VIAL IV ONE (18:30)
[2022-12-07] MEDS ORDERED: ONDANSETRON HCL 4 MG/2 ML VIAL IM ONE (18:30)
[2022-12-07] MEDS ORDERED: LORazepam 2MG/ML-1ML VIAL IV ONE (18:30)
[2022-12-07] MEDS ORDERED: CALCIUM GLUC 1,000mg/50ml-NS 50 ML IV ONE (18:30)
[2022-12-07 18:51] VITALS: PULSE 88; RESP 14; O2SAT 95
[2022-12-07] MEDS ORDERED: ALBUTEROL SULF 2.5 MG/0.5ML(0.5%) NEB SOLN HHN ONE (19:45)
[2022-12-07] MEDS ORDERED: DEXTROSE (50%) 50ML SYRG IV ONE (19:45)
[2022-12-07] MEDS ORDERED: InsuLIN REG 1unit/0.01ml Soln (100units/ml) IV ONE (19:45)
[2022-12-07] MEDS ORDERED: NITROGLYCERIN 0.4 MG SL TAB SL PRN (20:30)
[2022-12-07] MEDS ORDERED: BISACODYL 5 MG EC TAB PO PRN (21:00)
[2022-12-07] MEDS ORDERED: FUROSEMIDE 40 MG/4 ML VIAL IV ONE (21:00)
[2022-12-07] MEDS ORDERED: ONDANSETRON HCL 4 MG/2 ML VIAL IV ONE (21:00)
[2022-12-07] MEDS ORDERED: ALBUTEROL SULF 2.5 MG/0.5ML(0.5%) NEB SOLN NEB PRN (21:15)
[2022-12-07] MEDS ORDERED: IPRATROPIUM BROM 0.5 MG/2.5ML INH SOL NEB PRN (21:15)
[2022-12-07 21:24] VITALS: BP 180/102; PULSE 90; RESP 18; TEMP 98.3; O2SAT 96
[2022-12-07 21:25] VITALS: O2SAT 96
[2022-12-07 22:55] LABS: COVID19 ANTIGEN SOFIA FIA NEGATIVE (NEGATIVE)
[2022-12-08] VITALS (50 sets, daily range): BP systolic 143–206; BP diastolic 69–110; PULSE 76–94; RESP 10–92; TEMP 97.8–98.6; O2SAT 88–99
[2022-12-08 00:55] LABS: BUN/Creatinine Ratio 7.2 (10.0-20.0); Calcium 9.1 mg/dL (8.7-10.4)
[2022-12-08 01:04] LABS: Potassium 6.1 mmol/L (3.5-5.1)
[2022-12-08] MEDS: ATORVASTATIN 20 MG TAB PO SCH ×2 (01:31→21:47)
[2022-12-08] MEDS: hydrALAZINE HCL 25 MG TAB PO SCH ×4 (01:32→21:47)
[2022-12-08] MEDS: HEPARIN SODIUM (PORCINE) 5000 UNITS/ML 1ML VIAL SC SCH ×3 (01:32→21:48)
[2022-12-08] MEDS: TICAGRELOR 60 MG TAB PO SCH ×3 (01:51→21:46)
[2022-12-08] MEDS: INSULIN LANTUS (GLARGINE) 1 /0.01ml (100units/ml) SC SCH ×2 (01:51→21:42)
[2022-12-08] MEDS: MORPHINE SULFATE INJ 2 MG/ml SYRG IV PRN ×3 (01:52→20:27)
[2022-12-08] MEDS ORDERED: SODIUM ZIRCONIUM CYCL 10 GM PAK PO ONE ×2 (02:00→16:30)
[2022-12-08] MEDS ORDERED: InsuLIN REG 1unit/0.01ml Soln (100units/ml) IV ONE (02:00)
[2022-12-08] MEDS ORDERED: DEXTROSE (50%) 50ML SYRG IV ONE (02:00)
[2022-12-08] MEDS ORDERED: CALCIUM GLUC 1,000mg/50ml-NS 50 ML IV ONE (02:00)
[2022-12-08] MEDS ORDERED: SODIUM BICARBONATE 8.4% INJ 50ML SYRINGE IV ONE (02:00)
[2022-12-08] MEDS: LABETALOL HCL 5 MG/ML 4ML SYRINGE IV PRN ×2 (03:09→14:12)
[2022-12-08 04:57] LABS: Basophils # (auto) 0.1 10 ^3/uL (0-0.2); Eosinophils # (auto) 0.2 10 ^3/uL (0-0.8); Hemoglobin 7.7 g/dL (13.5-17.5); Monocytes # (auto) 0.6 10 ^3/uL (0-1.3); Neutrophils % (auto) 73.3 % (37.0-80.0)
[2022-12-08 05:01] LABS: Basophils % (auto) 0.9 % (0.0-2.0); Eosinophils % (auto) 3.5 % (0.0-7.0); Hematocrit 22.5 % (41.0-53.0); Lymphocytes # (auto) 0.8 10 ^3/uL (0.4-5.4); Lymphocytes % (auto) 12.6 % (10.0-50.0); Mean Corpuscular Hgb Conc. 34.4 g/dL (32.0-36.0); Mean Corpuscular Volume 93.1 fL (80.0-100.0); Monocytes % (auto) 9.7 % (0.0-12.0); Neutrophils # (auto) 4.7 10 ^3/uL (1.6-8.6); Red Blood Cells 2.41 10^6/uL (4.5-5.90); Red Cell Distribution Width 14.1 % (11.8-14.3); White Blood Cell 6.4 10^3/uL (4.4-10.8)
[2022-12-08 05:14] LABS: Albumin 3.4 g/dL (3.4-5.0); Calcium 9.3 mg/dL (8.7-10.4); Potassium 5.5 mmol/L (3.5-5.1)
[2022-12-08 05:18] LABS: Bilirubin, Total 0.4 mg/dL (0.2-1.0); Total Protein 5.9 g/dL (6.4-8.2)
[2022-12-08] MEDS ORDERED: LORazepam 0.5 MG TAB PO ONE (06:30)
[2022-12-08] MEDS: FUROSEMIDE 20 MG/2 ML VIAL IV SCH (08:31)
[2022-12-08] MEDS: NIFEdipine ER 30 MG TAB PO SCH ×2 (08:31→12:20)
[2022-12-08] MEDS: METOPROLOL SUCCINATE XL 50 MG TAB PO SCH ×2 (08:31→12:21)
[2022-12-08] MEDS: ASPirin-EC 81 mg tab PO SCH (08:39)
[2022-12-08] MEDS: SEVELAMER 800 MG TAB PO SCH ×3 (08:39→17:13)
[2022-12-08] MEDS: PANTOPRAZOLE 40 MG TAB PO SCH (08:39)
[2022-12-08] MEDS: B-COMPLEX W/ C & FOLIC ACID(NEPHROVITE TAB) PO SCH (08:39)
[2022-12-08] MEDS: CALCIUM ACETATE 667 MG CAP PO SCH ×3 (08:39→17:13)
[2022-12-08] MEDS ORDERED: diphenhdrAMINE HCL 50 MG/1 ML VL IV ONE (11:45)
[2022-12-08] MEDS ORDERED: CALCIUM ACETATE 667 MG CAP PO ONE (13:15)
[2022-12-08] MEDS: DOBUTamine 1000MCG/ML 250 ML IV SCH (15:55)
[2022-12-08] MEDS: ISOSORBIDE MONONITRATE ER 60 MG TAB PO SCH (17:14)
[2022-12-08] MEDS ORDERED: EPOETIN ALFA-EPBX 10,000 UNIT/1ML VIAL SC ONE (21:00)
[2022-12-08] MEDS ORDERED: hydrOXYzine 25 MG TAB or CAP PO PRN (22:15)
[2022-12-09] VITALS (42 sets, daily range): BP systolic 127–206; BP diastolic 51–100; PULSE 77–97; RESP 9–29; TEMP 98–98.8; O2SAT 90–99
[2022-12-09] MEDS: HYDROcodone-ACET 10/325MG TAB PO PRN ×4 (02:32→23:56)
[2022-12-09] MEDS: ISOSORBIDE MONONITRATE ER 60 MG TAB PO SCH ×2 (05:01→17:31)
[2022-12-09] MEDS: hydrALAZINE HCL 25 MG TAB PO SCH ×3 (05:02→20:46)
[2022-12-09 05:06] LABS: Hemoglobin 9.5 g/dL (13.5-17.5)
[2022-12-09 05:25] LABS: % Iron Saturation 18.1 % (20-55)
[2022-12-09 06:34] LABS: Alanine Aminotransferase 13 U/L (7-40); Albumin 3.9 g/dL (3.2-4.8); Alkaline Phosphatase 95 U/L (46-116); Aspartate Aminotransferase 13 U/L (13-40); BUN/Creatinine Ratio 5.2 (10.0-20.0); Bilirubin, Total 0.3 mg/dL (0.2-1.0); Blood Urea Nitrogen 49 mg/dL (9-23); Calcium 9.2 mg/dL (8.7-10.4); Chloride 94 mmol/L (98-107); Glucose 167 mg/dL (74-106); Sodium 136 mmol/L (136-145); Total Protein 6.1 g/dL (5.7-8.2)
[2022-12-09] MEDS ORDERED: SODIUM CHL 0.9% 1000 ML BAG XX ONE (07:00)
[2022-12-09] MEDS: CALCIUM ACETATE 667 MG CAP PO SCH ×3 (08:00→17:57)
[2022-12-09] MEDS: SEVELAMER 800 MG TAB PO SCH ×3 (08:22→17:57)
[2022-12-09] MEDS: DOBUTamine 1000MCG/ML 250 ML IV SCH (12:45)
[2022-12-09] MEDS: FUROSEMIDE 20 MG/2 ML VIAL IV SCH (12:54)
[2022-12-09] MEDS: NIFEdipine ER 30 MG TAB PO SCH (12:55)
[2022-12-09] MEDS: ASPirin-EC 81 mg tab PO SCH (12:55)
[2022-12-09] MEDS: PANTOPRAZOLE 40 MG TAB PO SCH (12:55)
[2022-12-09] MEDS: B-COMPLEX W/ C & FOLIC ACID(NEPHROVITE TAB) PO SCH (12:56)
[2022-12-09] MEDS: METOPROLOL SUCCINATE XL 50 MG TAB PO SCH (12:56)
[2022-12-09] MEDS: HEPARIN SODIUM (PORCINE) 5000 UNITS/ML 1ML VIAL SC SCH ×2 (13:04→20:48)
[2022-12-09] MEDS: TICAGRELOR 60 MG TAB PO SCH ×2 (13:29→20:45)
[2022-12-09] MEDS: MORPHINE SULFATE INJ 2 MG/ml SYRG IV PRN (13:30)
[2022-12-09] MEDS: ATORVASTATIN 20 MG TAB PO SCH (20:45)
[2022-12-09] MEDS: INSULIN LANTUS (GLARGINE) 1 /0.01ml (100units/ml) SC SCH (20:56)
[2022-12-09] MEDS ORDERED: EPOETIN ALFA-EPBX 10,000 UNIT/1ML VIAL SC ONE (21:00)
[2022-12-10] VITALS (11 sets, daily range): BP systolic 127–179; BP diastolic 28–92; PULSE 78–91; RESP 9–19; TEMP 97.8–98.7; O2SAT 88–98
[2022-12-10 05:08] LABS: Basophils # (auto) 0 10 ^3/uL (0-0.2); Eosinophils # (auto) 0.2 10 ^3/uL (0-0.8); Eosinophils % (auto) 4.8 % (0.0-7.0); Hematocrit 27.5 % (41.0-53.0); Hemoglobin 9.3 g/dL (13.5-17.5); Lymphocytes # (auto) 0.6 10 ^3/uL (0.4-5.4); Lymphocytes % (auto) 15.3 % (10.0-50.0); Mean Corpuscular Hemoglobin 31.4 pg (28.0-32.0); Mean Corpuscular Hgb Conc. 33.9 g/dL (32.0-36.0); Mean Corpuscular Volume 92.6 fL (80.0-100.0); Monocytes # (auto) 0.5 10 ^3/uL (0-1.3); Monocytes % (auto) 12.2 % (0.0-12.0); Neutrophils # (auto) 2.6 10 ^3/uL (1.6-8.6); Neutrophils % (auto) 66.7 % (37.0-80.0); Nucleated Red Blood Cells % 0.2 %; Red Blood Cells 2.97 10^6/uL (4.5-5.90); Red Cell Distribution Width 14.2 % (11.8-14.3); White Blood Cell 3.9 10^3/uL (4.4-10.8)
[2022-12-10 05:22] LABS: Alanine Aminotransferase 12 U/L (7-40); Albumin 3.9 g/dL (3.2-4.8); Alkaline Phosphatase 92 U/L (46-116); Anion Gap 9.2 (5-15); Aspartate Aminotransferase 11 U/L (13-40); BUN/Creatinine Ratio 4.8 (10.0-20.0); Bilirubin, Total 0.2 mg/dL (0.2-1.0); Blood Urea Nitrogen 43 mg/dL (9-23); Calcium 9.4 mg/dL (8.7-10.4); Carbon Dioxide 30.8 mmol/L (20-30); Chloride 95 mmol/L (98-107); Glucose 139 mg/dL (74-106); Potassium 5.1 mmol/L (3.5-5.1); Sodium 135 mmol/L (136-145); Total Protein 6.2 g/dL (5.7-8.2)
[2022-12-10] MEDS: ISOSORBIDE MONONITRATE ER 60 MG TAB PO SCH (05:25)
[2022-12-10] MEDS: hydrALAZINE HCL 25 MG TAB PO SCH ×2 (05:26→14:28)
[2022-12-10] MEDS: HYDROcodone-ACET 10/325MG TAB PO PRN ×2 (05:26→09:39)
[2022-12-10] MEDS: SEVELAMER 800 MG TAB PO SCH ×2 (08:11→12:32)
[2022-12-10] MEDS: CALCIUM ACETATE 667 MG CAP PO SCH ×2 (08:11→12:32)
[2022-12-10] MEDS ORDERED: SODIUM ZIRCONIUM CYCL 10 GM PAK PO ONE (08:15)
[2022-12-10] MEDS: NIFEdipine ER 30 MG TAB PO SCH (09:32)
[2022-12-10] MEDS: PANTOPRAZOLE 40 MG TAB PO SCH (09:32)
[2022-12-10] MEDS: ASPirin-EC 81 mg tab PO SCH (09:33)
[2022-12-10] MEDS: B-COMPLEX W/ C & FOLIC ACID(NEPHROVITE TAB) PO SCH (09:33)
[2022-12-10] MEDS: METOPROLOL SUCCINATE XL 50 MG TAB PO SCH (09:33)
[2022-12-10] MEDS: TICAGRELOR 60 MG TAB PO SCH (09:36)
[2022-12-10] MEDS: FUROSEMIDE 20 MG/2 ML VIAL IV SCH (09:36)
[2022-12-10] MEDS ORDERED: SACUBITRIL-VALSARTAN 24mg/26mg TAB PO SCH (10:00)
[2022-12-10] MEDS ORDERED: SODIUM ZIRCONIUM CYCL 10 GM PAK PO SCH (10:00)
[2022-12-10] MEDS: DOBUTamine 1000MCG/ML 250 ML IV SCH (11:12)
== END 2022-12-10 14:50 | disposition home or self-care (01) | DRG 291 ==
LOC: ER 16:39 → TELE 20:24 → DOU IN ICU 12-08 02:15 → ICU CENTRL 12-08 02:45 → DOU IN ICU 12-08 02:52
PROVIDERS: ADMIT Nurse Practitioner Family; ATTEND Internal Medicine Cardiovascular Disease
PROC: 30233N1 Transfusion of Nonautologous Red Blood Cells into Peripheral Vein, Percutaneous Approach (ICD-10-PCS; principal; 2022-12-08)
PROC: 5A1D70Z Performance of Urinary Filtration, Intermittent, Less than 6 Hours Per Day (ICD-10-PCS; 2022-12-08)
PROC: 5A1D70Z Performance of Urinary Filtration, Intermittent, Less than 6 Hours Per Day (ICD-10-PCS; 2022-12-09)
DX: I13.2 Hypertensive heart and chronic kidney disease with heart failure and with stage 5 chronic kidney disease, or end stage renal disease (principal); I50.23 Acute on chronic systolic (congestive) heart failure; N18.6 End stage renal disease; I16.1 Hypertensive emergency; I25.10 Atherosclerotic heart disease of native coronary artery without angina pectoris; E87.5 Hyperkalemia; E11.22 Type 2 diabetes mellitus with diabetic chronic kidney disease; E78.00 Pure hypercholesterolemia, unspecified; I25.5 Ischemic cardiomyopathy; D63.1 Anemia in chronic kidney disease; F32.A Depression, unspecified; Z20.822 Contact with and (suspected) exposure to COVID-19; F41.9 Anxiety disorder, unspecified; E11.42 Type 2 diabetes mellitus with diabetic polyneuropathy; R79.89 Other specified abnormal findings of blood chemistry; Z82.49 Family history of ischemic heart disease and other diseases of the circulatory system; Z83.3 Family history of diabetes mellitus; Z99.2 Dependence on renal dialysis; Z86.73 Personal history of transient ischemic attack (TIA), and cerebral infarction without residual deficits; Z95.5 Presence of coronary angioplasty implant and graft; Z95.810 Presence of automatic (implantable) cardiac defibrillator; I25.2 Old myocardial infarction
CPT/HCPCS: 36415; 71045; 80048; 80053; 80320; 82728; 82962; 83540; 83550; 83880; 84132; 84484; 85014; 85018; 85025; 85610; 85730; 86850; 86900; 86901; 86920; 87081; 87340; 87426; 90935; 93005; 94640; 99291; G0378; J1815; J2405; J3490

== ENCOUNTER 2023-09-16 20:05 | Inpatient (IN) | payer MEDICARE, MEDICAID ==
[~2023-09-16] VITALS: Ht 170.2 cm; Wt 73.0 kg
[~2023-09-16 20:05] MED LIST changes: +ACET-1882 PO; -AZIT500T66 PO; +DIPH1CRE TOP; +ERGO1CAP23 PO; -HYDR-4297 PO; +HYDR50TA47 PO; +LIDO5DIS21 TOP; -METO-289 PO
[2023-09-16] MEDS: ACETAMINOPHEN 325 MG TAB PO ONE (20:46)
[2023-09-16 21:41] LABS: Alanine Aminotransferase 11 U/L (7-40); Albumin 4.6 g/dL (3.2-4.8); Alkaline Phosphatase 93 U/L (46-116); Anion Gap 11 (5-15); Aspartate Aminotransferase 18 U/L (13-40); Blood Urea Nitrogen 34 mg/dL (9-23); Calcium 10.5 mg/dL (8.7-10.4); Carbon Dioxide 33 mmol/L (20-30); Chloride 91 mmol/L (98-107); Glucose 146 mg/dL (74-106); Potassium 4.8 mmol/L (3.5-5.1); Sodium 135 mmol/L (136-145)
[2023-09-16 21:42] LABS: Bilirubin, Total 0.2 mg/dL (0.2-1.0); Total Protein 7.8 g/dL (5.7-8.2)
[2023-09-16 21:55] LABS: COVID19 ANTIGEN SOFIA FIA NEGATIVE (NEGATIVE); Rapid Influenza A Negative (Negative); Rapid Influenza B Negative (Negative)
[2023-09-16 22:01] LABS: Basophils # (auto) 0 10 ^3/uL (0-0.2); Basophils % (auto) 0.5 % (0.0-2.0); Eosinophils # (auto) 0.1 10 ^3/uL (0-0.8); Hematocrit 36.6 % (41.0-53.0); Hemoglobin 12.3 g/dL (13.5-17.5); Lymphocytes # (auto) 0.6 10 ^3/uL (0.4-5.4); Lymphocytes % (auto) 10.1 % (10.0-50.0); Mean Corpuscular Hemoglobin 31.4 pg (28.0-32.0); Mean Corpuscular Hgb Conc. 33.6 g/dL (32.0-36.0); Mean Corpuscular Volume 93.2 fL (80.0-100.0); Monocytes # (auto) 0.9 10 ^3/uL (0-1.3); Monocytes % (auto) 13.7 % (0.0-12.0); Neutrophils # (auto) 4.6 10 ^3/uL (1.6-8.6); Neutrophils % (auto) 73.7 % (37.0-80.0); Nucleated Red Blood Cells % 0.1 %; Red Blood Cells 3.92 10^6/uL (4.5-5.90); Red Cell Distribution Width 16.7 % (11.8-14.3); White Blood Cell 6.3 10^3/uL (4.4-10.8)
[2023-09-17] VITALS (9 sets, daily range): BP systolic 143–165; BP diastolic 86–94; PULSE 79–102; RESP 12–19; TEMP 98.2–98.7; O2SAT 91–98
[2023-09-17] MEDS ORDERED: MORPHINE SULFATE INJ 2 MG/ml SYRG IV PRN
[2023-09-17] MEDS ORDERED: NITROGLYCERIN 0.4 MG SL TAB SL PRN
[2023-09-17] MEDS ORDERED: ONDANSETRON HCL 4 MG/2 ML VIAL IV PRN
[2023-09-17] MEDS ORDERED: ACETAMINOPHEN 325 MG TAB PO PRN
[2023-09-17] MEDS: PIPERACILLIN-TAZOB 3.375GM 100 ML IV ONE (01:02)
[2023-09-17] MEDS: HYDROcodone-ACET 5/325MG TAB PO PRN (01:02)
[2023-09-17] MEDS: MELATONIN 5 MG TAB PO ONE (02:09)
[2023-09-17 06:06] LABS: Basophils # (auto) 0 10 ^3/uL (0-0.2); Basophils % (auto) 0.6 % (0.0-2.0); Eosinophils # (auto) 0.1 10 ^3/uL (0-0.8); Eosinophils % (auto) 1.5 % (0.0-7.0); Hematocrit 33.7 % (41.0-53.0); Hemoglobin 11.4 g/dL (13.5-17.5); Lymphocytes # (auto) 0.7 10 ^3/uL (0.4-5.4); Lymphocytes % (auto) 10.7 % (10.0-50.0); Mean Corpuscular Hemoglobin 31.7 pg (28.0-32.0); Mean Corpuscular Hgb Conc. 33.7 g/dL (32.0-36.0); Mean Corpuscular Volume 93.9 fL (80.0-100.0); Monocytes % (auto) 14.8 % (0.0-12.0); Neutrophils # (auto) 4.7 10 ^3/uL (1.6-8.6); Neutrophils % (auto) 72.4 % (37.0-80.0); Red Blood Cells 3.59 10^6/uL (4.5-5.90); Red Cell Distribution Width 16.6 % (11.8-14.3); White Blood Cell 6.5 10^3/uL (4.4-10.8)
[2023-09-17 06:20] LABS: Alanine Aminotransferase < 9 U/L (7-40); Albumin 4.1 g/dL (3.2-4.8); Alkaline Phosphatase 82 U/L (46-116); Anion Gap 6 (5-15); Aspartate Aminotransferase 15 U/L (13-40); BUN/Creatinine Ratio 5.2 (10.0-20.0); Bilirubin, Total 0.2 mg/dL (0.2-1.0); Blood Urea Nitrogen 40 mg/dL (9-23); Carbon Dioxide 36 mmol/L (20-30); Chloride 93 mmol/L (98-107); Glucose 127 mg/dL (74-106); Potassium 4.7 mmol/L (3.5-5.1); Sodium 135 mmol/L (136-145)
[2023-09-17] MEDS: SODIUM CHLOR 0.9% PF (SALINE LOCK) 10ML VIAL/SYR IV SCH (06:20)
[2023-09-17] MEDS: ACCU-CHEK COMFORT CURVE STRIP VI SCH ×2 (06:54→21:22)
[2023-09-17] MEDS: InsuLIN REG 1unit/0.01ml Soln (100units/ml) SC SCH ×2 (06:55→21:23)
[2023-09-17] MEDS ORDERED: SEVELAMER 800 MG TAB PO SCH (08:00)
[2023-09-17] MEDS: SEVELAMER 800 MG TAB PO SCH (08:57)
[2023-09-17] MEDS ORDERED: FAMOTIDINE (10MG/ML) 2ML VL IV SCH (10:00)
[2023-09-17] MEDS: B-COMPLEX W/ C & FOLIC ACID(NEPHROVITE TAB) PO SCH (11:23)
[2023-09-17] MEDS: ASPirin 81 mg TAB PO SCH (11:23)
[2023-09-17] MEDS: DOCUSATE SOD 100 MG CAP PO PRN (14:03)
[2023-09-17] MEDS ORDERED: traMADol HCL 50 MG TAB PO PRN (14:15)
[2023-09-17] MEDS ORDERED: VANCOMYCIN PER PHARMACY 0 MG IV SCH (16:30)
[2023-09-17] MEDS ORDERED: DEXTROSE (50%) 50ML SYRG IV PRN ×2 (18:00)
[2023-09-17] MEDS: VANCOMYCIN 1GM/200ML 200 ML IV ONE (18:32)
[2023-09-17] MEDS: METOPROLOL SUCCINATE XL 50 MG TAB PO ONE (19:13)
[2023-09-17] MEDS: LORazepam 2MG/ML-1ML VIAL IV PRN (21:15)
[2023-09-17] MEDS: PIPERACILLIN-TAZOB 2.25GM 50 ML IV SCH (21:15)
[2023-09-17] MEDS: FAMOTIDINE 20 MG TAB PO SCH (21:16)
[2023-09-17] MEDS: ATORVASTATIN 20 MG TAB PO SCH (21:17)
[2023-09-17] MEDS: hydrALAZINE HCL 25 MG TAB PO SCH (21:17)
[2023-09-17] MEDS ORDERED: InsuLIN REG 1unit/0.01ml Soln (100units/ml) SC SCH (22:00)
[2023-09-18] VITALS (8 sets, daily range): BP systolic 114–168; BP diastolic 78–99; PULSE 72–82; RESP 16–20; TEMP 97.9–98.6; O2SAT 92–98
[2023-09-18] MEDS: SODIUM CHL 0.9% 1000 ML BAG XX ONE (07:00)
[2023-09-18] MEDS: NIFEdipine ER 30 MG TAB PO SCH (10:00)
[2023-09-18] MEDS: METOPROLOL SUCCINATE XL 50 MG TAB PO SCH (10:00)
[2023-09-18 10:36] LABS: Basophils # (auto) 0.1 10 ^3/uL (0-0.2); Basophils % (auto) 1.2 % (0.0-2.0); Eosinophils # (auto) 0.2 10 ^3/uL (0-0.8); Eosinophils % (auto) 4.2 % (0.0-7.0); Hematocrit 32.8 % (41.0-53.0); Hemoglobin 10.9 g/dL (13.5-17.5); Lymphocytes # (auto) 0.7 10 ^3/uL (0.4-5.4); Lymphocytes % (auto) 14.1 % (10.0-50.0); Mean Corpuscular Hemoglobin 31.1 pg (28.0-32.0); Mean Corpuscular Hgb Conc. 33.4 g/dL (32.0-36.0); Mean Corpuscular Volume 93.3 fL (80.0-100.0); Monocytes # (auto) 0.7 10 ^3/uL (0-1.3); Monocytes % (auto) 13.4 % (0.0-12.0); Neutrophils # (auto) 3.5 10 ^3/uL (1.6-8.6); Neutrophils % (auto) 67.1 % (37.0-80.0); Nucleated Red Blood Cells % 0.1 %; Red Blood Cells 3.51 10^6/uL (4.5-5.90); White Blood Cell 5.2 10^3/uL (4.4-10.8)
[2023-09-18 10:42] LABS: Anion Gap 10 (5-15); Carbon Dioxide 30 mmol/L (20-30); Chloride 93 mmol/L (98-107); Sodium 133 mmol/L (136-145)
[2023-09-18 10:43] LABS: Calcium 9.6 mg/dL (8.5-10.1)
[2023-09-18 10:47] LABS: Glucose 78 mg/dL (74-106)
[2023-09-18 10:48] LABS: BUN/Creatinine Ratio 6.5 (10.0-20.0); Blood Urea Nitrogen 60 mg/dL (9-23)
[2023-09-18 10:50] LABS: Potassium 6.2 mmol/L (3.5-5.1)
[2023-09-18] MEDS: VANCOMYCIN 500 MG in D5W 5% 100 ML IV ONE (18:38)
[2023-09-19] VITALS (7 sets, daily range): BP systolic 121–179; BP diastolic 49–107; PULSE 70–80; RESP 17–21; TEMP 97.5–98.6; O2SAT 95–98
[2023-09-19] MEDS ORDERED: TRAZ1TAB12 PO (00:49)
[2023-09-19 06:47] LABS: Basophils # (auto) 0 10 ^3/uL (0-0.2); Basophils % (auto) 1.1 % (0.0-2.0); Eosinophils # (auto) 0.2 10 ^3/uL (0-0.8); Eosinophils % (auto) 4.7 % (0.0-7.0); Hematocrit 32.9 % (41.0-53.0); Hemoglobin 10.7 g/dL (13.5-17.5); Lymphocytes # (auto) 0.6 10 ^3/uL (0.4-5.4); Lymphocytes % (auto) 15.9 % (10.0-50.0); Mean Corpuscular Hemoglobin 30.9 pg (28.0-32.0); Mean Corpuscular Hgb Conc. 32.6 g/dL (32.0-36.0); Monocytes # (auto) 0.5 10 ^3/uL (0-1.3); Monocytes % (auto) 11.6 % (0.0-12.0); Neutrophils # (auto) 2.6 10 ^3/uL (1.6-8.6); Neutrophils % (auto) 66.7 % (37.0-80.0); Nucleated Red Blood Cells % 0.1 %; Red Blood Cells 3.47 10^6/uL (4.5-5.90); Red Cell Distribution Width 16.2 % (11.8-14.3)
[2023-09-19 07:09] LABS: Potassium 5.5 mmol/L (3.5-5.1)
[2023-09-19 07:11] LABS: Calcium 9.8 mg/dL (8.7-10.4)
[2023-09-19 07:16] LABS: BUN/Creatinine Ratio 5.1 (10.0-20.0)
[2023-09-19 07:17] LABS: Albumin 3.8 g/dL (3.2-4.8)
[2023-09-19 07:18] LABS: Phosphorus 6.2 mg/dL (2.4-5.1)
[2023-09-19] MEDS: NYSTATIN TOPICAL CREAM 15GM TOP SCH (12:11)
[2023-09-19] MEDS: TICAGRELOR 60 MG TAB PO SCH (12:11)
[2023-09-19] MEDS: SODIUM ZIRCONIUM CYCL 10 GM PAK PO ONE (13:52)
[2023-09-19] MEDS: LACTULOSE 20Gm/30ML SOLN PO PRN (16:32)
[2023-09-20] MEDS ORDERED: SODIUM CHL 0.9% 1000 ML BAG XX ONE (07:00)
== END 2023-09-19 18:37 | disposition home or self-care (01) | DRG 291 ==
LOC: ER 20:05 → TELE 09-17 → TELE-E-ADS 09-17 → TELE 09-17 00:08 → TELE-E-ADS 09-17 12:19 → TELE-WESTW 09-17 18:05
PROVIDERS: ADMIT Internal Medicine Geriatric Medicine; ATTEND Emergency Medicine
PROC: 5A1D70Z Performance of Urinary Filtration, Intermittent, Less than 6 Hours Per Day (ICD-10-PCS; principal; 2023-09-18)
DX: I13.2 Hypertensive heart and chronic kidney disease with heart failure and with stage 5 chronic kidney disease, or end stage renal disease (principal); I50.23 Acute on chronic systolic (congestive) heart failure; J96.01 Acute respiratory failure with hypoxia; N18.6 End stage renal disease; E87.20 Acidosis, unspecified; I25.10 Atherosclerotic heart disease of native coronary artery without angina pectoris; F32.A Depression, unspecified; E78.00 Pure hypercholesterolemia, unspecified; E83.52 Hypercalcemia; E83.39 Other disorders of phosphorus metabolism; D63.1 Anemia in chronic kidney disease; F41.9 Anxiety disorder, unspecified; E87.5 Hyperkalemia; Z20.822 Contact with and (suspected) exposure to COVID-19; E11.22 Type 2 diabetes mellitus with diabetic chronic kidney disease; Z99.2 Dependence on renal dialysis; Z95.0 Presence of cardiac pacemaker; Z82.49 Family history of ischemic heart disease and other diseases of the circulatory system; Z83.3 Family history of diabetes mellitus; Z88.7 Allergy status to serum and vaccine
CPT/HCPCS: 36415; 71045; 80048; 80053; 80069; 80202; 82962; 85025; 87081; 90935; 93005; G0378; J1815; J2543; J7060

== ENCOUNTER 2023-10-15 18:24 | Inpatient (IN) | payer MEDICARE, MEDICAID ==
[~2023-10-15] VITALS: Ht 172.7 cm; Wt 64.5 kg
[~2023-10-15 18:24] MED LIST changes: -ASPI-543 PO; -BISA-13 PO; -CALC667C PO; -FURO40TA4 PO; -LACT10SO70 PO; +TRAZ1TAB12 PO
[2023-10-15 20:40] LABS: Basophils # (auto) 0.1 10 ^3/uL (0-0.2); Basophils % (auto) 1.4 % (0.0-2.0); Eosinophils # (auto) 0.2 10 ^3/uL (0-0.8); Eosinophils % (auto) 4.6 % (0.0-7.0); Hematocrit 33.4 % (41.0-53.0); Lymphocytes # (auto) 0.6 10 ^3/uL (0.4-5.4); Lymphocytes % (auto) 13.4 % (10.0-50.0); Mean Corpuscular Hemoglobin 30.8 pg (28.0-32.0); Mean Corpuscular Hgb Conc. 32.8 g/dL (32.0-36.0); Mean Corpuscular Volume 93.7 fL (80.0-100.0); Monocytes # (auto) 0.5 10 ^3/uL (0-1.3); Monocytes % (auto) 10.1 % (0.0-12.0); Neutrophils # (auto) 3.3 10 ^3/uL (1.6-8.6); Neutrophils % (auto) 70.5 % (37.0-80.0); Red Blood Cells 3.56 10^6/uL (4.5-5.90); Red Cell Distribution Width 15.8 % (11.8-14.3); White Blood Cell 4.7 10^3/uL (4.4-10.8)
[2023-10-15 20:48] LABS: Chloride 101 mmol/L (98-107); Sodium 139 mmol/L (136-145)
[2023-10-15 20:49] LABS: Anion Gap 6 (5-15); Carbon Dioxide 32 mmol/L (20-30)
[2023-10-15 20:50] LABS: Calcium 10.1 mg/dL (8.5-10.1)
[2023-10-15 20:54] LABS: Glucose 117 mg/dL (74-106)
[2023-10-15 20:55] LABS: BUN/Creatinine Ratio 5.8 (10.0-20.0); Blood Urea Nitrogen 44 mg/dL (9-23)
[2023-10-15 20:58] LABS: Partial Thromboplastin Time 26.5 SEC (24.5-34.5); Prothrombin Time 10.6 sec (9.3-11.8)
[2023-10-15 20:59] LABS: Potassium 5.8 mmol/L (3.5-5.1)
[2023-10-15 23:47] VITALS: O2SAT 98
[2023-10-15] MEDS: ALBUTEROL SULF 2.5 MG/0.5ML(0.5%) NEB SOLN NEB ONE (23:49)
[2023-10-15] MEDS: ALBUTEROL SULF 2.5 MG/0.5ML(0.5%) NEB SOLN ONE (23:49)
[2023-10-16] VITALS (12 sets, daily range): BP systolic 135–183; BP diastolic 85–103; PULSE 84–111; RESP 15–20; TEMP 97.7–98.5; O2SAT 93–100
[2023-10-16] MEDS: SODIUM ZIRCONIUM CYCL 10 GM PAK PO ONE (00:40)
[2023-10-16] MEDS: DEXTROSE (50%) 50ML SYRG IV ONE (01:25)
[2023-10-16] MEDS: LORazepam 0.5 MG TAB PO ONE (01:25)
[2023-10-16] MEDS: CALCIUM GLUC 1,000mg/50ml-NS 50 ML IV ONE (01:26)
[2023-10-16] MEDS ORDERED: ONDANSETRON HCL 4 MG/2 ML VIAL IV PRN (01:30)
[2023-10-16] MEDS ORDERED: DEXTROSE (50%) 50ML SYRG IV PRN (01:30)
[2023-10-16] MEDS ORDERED: ACETAMINOPHEN 325 MG TAB PO PRN (01:30)
[2023-10-16] MEDS: InsuLIN REG 1unit/0.01ml Soln (100units/ml) IV ONE (01:34)
[2023-10-16] MEDS: LORazepam 2MG/ML-1ML VIAL IV ONE (02:08)
[2023-10-16] MEDS ORDERED: MORPHINE SULFATE INJ 2 MG/ml SYRG IV PRN (02:30)
[2023-10-16] MEDS ORDERED: NITROGLYCERIN 0.4 MG SL TAB SL PRN (02:30)
[2023-10-16 04:24] LABS: Basophils # (auto) 0 10 ^3/uL (0-0.2); Basophils % (auto) 0.5 % (0.0-2.0); Eosinophils # (auto) 0.1 10 ^3/uL (0-0.8); Eosinophils % (auto) 1.8 % (0.0-7.0); Hematocrit 28.9 % (41.0-53.0); Hemoglobin 9.7 g/dL (13.5-17.5); Lymphocytes # (auto) 0.5 10 ^3/uL (0.4-5.4); Lymphocytes % (auto) 8.2 % (10.0-50.0); Mean Corpuscular Hemoglobin 31.3 pg (28.0-32.0); Mean Corpuscular Hgb Conc. 33.6 g/dL (32.0-36.0); Monocytes # (auto) 0.8 10 ^3/uL (0-1.3); Neutrophils # (auto) 4.6 10 ^3/uL (1.6-8.6); Neutrophils % (auto) 76.5 % (37.0-80.0); Red Blood Cells 3.11 10^6/uL (4.5-5.90); Red Cell Distribution Width 15.5 % (11.8-14.3)
[2023-10-16 04:40] LABS: Alanine Aminotransferase 25 U/L (7-40); Alkaline Phosphatase 111 U/L (46-116); Anion Gap 10 (5-15); Aspartate Aminotransferase 21 U/L (13-40); BUN/Creatinine Ratio 6.9 (10.0-20.0); Blood Urea Nitrogen 58 mg/dL (9-23); Calcium 10.1 mg/dL (8.5-10.1); Carbon Dioxide 31 mmol/L (20-30); Chloride 101 mmol/L (98-107); Glucose 118 mg/dL (74-106); Potassium 4.1 mmol/L (3.5-5.1); Sodium 142 mmol/L (136-145)
[2023-10-16 04:41] LABS: Bilirubin, Total 0.2 mg/dL (0.2-1.0); Total Protein 6.4 g/dL (5.7-8.2)
[2023-10-16] MEDS: SODIUM CHLOR 0.9% PF (SALINE LOCK) 10ML VIAL/SYR IV SCH (06:10)
[2023-10-16] MEDS: InsuLIN REG 1unit/0.01ml Soln (100units/ml) SC SCH ×2 (06:22→21:21)
[2023-10-16] MEDS: hydrALAZINE HCL 20 MG/ML VL IV PRN (06:24)
[2023-10-16] MEDS: ACCU-CHEK COMFORT CURVE STRIP VI SCH (06:24)
[2023-10-16] MEDS: HYDROcodone-ACET 5/325MG TAB PO PRN (06:25)
[2023-10-16] MEDS: METOPROLOL TARTRATE 25 MG TAB PO SCH (08:11)
[2023-10-16] MEDS: B-COMPLEX W/ C & FOLIC ACID(NEPHROVITE TAB) PO SCH (08:11)
[2023-10-16] MEDS: SEVELAMER 800 MG TAB PO SCH ×2 (08:11→18:18)
[2023-10-16] MEDS: DOCUSATE SOD 100 MG CAP PO PRN (08:49)
[2023-10-16] MEDS: LORazepam 2MG/ML-1ML VIAL IV PRN (10:23)
[2023-10-16] MEDS ORDERED: SEVE800T10 PO (11:05)
[2023-10-16] MEDS ORDERED: LORA-1121 PO (11:07)
[2023-10-16] MEDS ORDERED: POM TD (11:07)
[2023-10-16] MEDS ORDERED: SEVELAMER 800 MG TAB PO SCH (12:30)
[2023-10-16] MEDS: hydrALAZINE HCL 25 MG TAB PO SCH (13:28)
[2023-10-16] MEDS: NIFEdipine ER 30 MG TAB PO SCH (13:28)
[2023-10-16] MEDS: SEVELAMER 800 MG TAB PO ONE (13:29)
[2023-10-16] MEDS: LACTULOSE 20Gm/30ML SOLN PO PRN (14:29)
[2023-10-16] MEDS: diphenhdrAMINE HCL 25 MG CAP PO PRN (14:29)
[2023-10-16] MEDS: ATORVASTATIN 20 MG TAB PO SCH (22:02)
[2023-10-17] VITALS (9 sets, daily range): BP systolic 137–168; BP diastolic 59–96; PULSE 78–87; RESP 18–20; TEMP 98–98.7; O2SAT 92–98
[2023-10-17] MEDS: ALBUTEROL SULF 2.5 MG/0.5ML(0.5%) NEB SOLN NEB PRN (00:29)
[2023-10-17] MEDS ORDERED: SODIUM CHL 0.9% 1000 ML BAG XX ONE (07:00)
[2023-10-17 13:52] LABS: Basophils # (auto) 0 10 ^3/uL (0-0.2); Basophils % (auto) 0.8 % (0.0-2.0); Eosinophils # (auto) 0.2 10 ^3/uL (0-0.8); Eosinophils % (auto) 5.3 % (0.0-7.0); Hemoglobin 11.1 g/dL (13.5-17.5); Lymphocytes # (auto) 0.4 10 ^3/uL (0.4-5.4); Mean Corpuscular Hemoglobin 31.3 pg (28.0-32.0); Mean Corpuscular Hgb Conc. 33.5 g/dL (32.0-36.0); Mean Corpuscular Volume 93.4 fL (80.0-100.0); Monocytes # (auto) 0.5 10 ^3/uL (0-1.3); Monocytes % (auto) 9.8 % (0.0-12.0); Neutrophils # (auto) 3.6 10 ^3/uL (1.6-8.6); Neutrophils % (auto) 75.1 % (37.0-80.0); Red Blood Cells 3.53 10^6/uL (4.5-5.90); Red Cell Distribution Width 15.8 % (11.8-14.3); White Blood Cell 4.7 10^3/uL (4.4-10.8)
[2023-10-17 14:13] LABS: Alanine Aminotransferase 29 U/L (7-40); Alkaline Phosphatase 105 U/L (46-116); Anion Gap 10 (5-15); Aspartate Aminotransferase 24 U/L (13-40); BUN/Creatinine Ratio 5.8 (10.0-20.0); Calcium 10.6 mg/dL (8.5-10.1); Carbon Dioxide 26 mmol/L (20-30); Chloride 102 mmol/L (98-107); Glucose 175 mg/dL (74-106); Potassium 5.2 mmol/L (3.5-5.1); Sodium 138 mmol/L (136-145)
[2023-10-17 14:14] LABS: Albumin 4.7 g/dL (3.2-4.8); Bilirubin, Total 0.3 mg/dL (0.2-1.0); Total Protein 7.6 g/dL (5.7-8.2)
[2023-10-17 14:50] LABS: Blood Urea Nitrogen 39 mg/dL (9-23)
[2023-10-17] MEDS ORDERED: EPOETIN ALFA-EPBX 4,000 UNIT/ML VIAL SC ONE (21:00)
[2023-10-18] MEDS ORDERED: SODIUM CHL 0.9% 1000 ML BAG XX ONE (07:00)
== END 2023-10-17 17:45 | disposition home or self-care (01) | DRG 314 ==
LOC: ER 18:24 → TELE-WESTW 10-16 02:30 → TELE 10-16 02:30 → TELE-WESTW 10-16 05:35
PROVIDERS: ADMIT Nurse Practitioner Family; ATTEND Nurse Practitioner Family
PROC: 5A1D70Z Performance of Urinary Filtration, Intermittent, Less than 6 Hours Per Day (ICD-10-PCS; principal; 2023-10-17)
DX: T82.848A Pain due to vascular prosthetic devices, implants and grafts, initial encounter (principal); N18.6 End stage renal disease; I13.2 Hypertensive heart and chronic kidney disease with heart failure and with stage 5 chronic kidney disease, or end stage renal disease; I50.32 Chronic diastolic (congestive) heart failure; D64.9 Anemia, unspecified; E78.5 Hyperlipidemia, unspecified; E11.22 Type 2 diabetes mellitus with diabetic chronic kidney disease; E87.5 Hyperkalemia; F32.A Depression, unspecified; F41.9 Anxiety disorder, unspecified; G89.18 Other acute postprocedural pain; I25.10 Atherosclerotic heart disease of native coronary artery without angina pectoris; Y71.2 Prosthetic and other implants, materials and accessory cardiovascular devices associated with adverse incidents; I25.2 Old myocardial infarction; Z88.7 Allergy status to serum and vaccine; Z95.0 Presence of cardiac pacemaker; Z82.49 Family history of ischemic heart disease and other diseases of the circulatory system; Z82.61 Family history of arthritis; Z83.3 Family history of diabetes mellitus; Z91.199 Patient's noncompliance with other medical treatment and regimen due to unspecified reason; Z99.2 Dependence on renal dialysis
CPT/HCPCS: 36415; 71045; 80048; 80053; 82962; 85025; 85610; 85730; 87081; 90935; 93005; 93971; 94640; G0378; J1815

== ENCOUNTER 2023-11-23 03:50 | Emergency (ER) | payer MEDICARE, MEDICAID ==
[~2023-11-23] VITALS: Ht 172.7 cm; Wt 75.0 kg
[~2023-11-23 03:50] MED LIST changes: +LORA-1121 PO; +POM TD; -SEVE400T PO; +SEVE800T10 PO
[2023-11-23 04:39] LABS: Basophils # (auto) 0.1 10 ^3/uL (0-0.2); Basophils % (auto) 0.8 % (0.0-2.0); Eosinophils # (auto) 0.3 10 ^3/uL (0-0.8); Eosinophils % (auto) 4.4 % (0.0-7.0); Hematocrit 25.7 % (41.0-53.0); Hemoglobin 8.8 g/dL (13.5-17.5); Lymphocytes # (auto) 0.7 10 ^3/uL (0.4-5.4); Lymphocytes % (auto) 10.9 % (10.0-50.0); Mean Corpuscular Hemoglobin 31.2 pg (28.0-32.0); Mean Corpuscular Hgb Conc. 34.1 g/dL (32.0-36.0); Mean Corpuscular Volume 91.4 fL (80.0-100.0); Monocytes # (auto) 0.5 10 ^3/uL (0-1.3); Monocytes % (auto) 8.2 % (0.0-12.0); Neutrophils # (auto) 4.8 10 ^3/uL (1.6-8.6); Neutrophils % (auto) 75.7 % (37.0-80.0); Nucleated Red Blood Cells % 0.1 %; Red Blood Cells 2.81 10^6/uL (4.5-5.90); Red Cell Distribution Width 15.8 % (11.8-14.3); White Blood Cell 6.4 10^3/uL (4.4-10.8)
[2023-11-23 04:46] LABS: Alanine Aminotransferase 15 U/L (7-40); Albumin 4.3 g/dL (3.2-4.8); Alkaline Phosphatase 116 U/L (46-116); Anion Gap 15 (5-15); Aspartate Aminotransferase 14 U/L (13-40); BUN/Creatinine Ratio 6.3 (10.0-20.0); Blood Urea Nitrogen 66 mg/dL (9-23); Calcium 10.2 mg/dL (8.7-10.4); Carbon Dioxide 23 mmol/L (20-30); Chloride 100 mmol/L (98-107); Glucose 111 mg/dL (74-106); Magnesium 2.9 mg/dL (1.6-2.6); Sodium 138 mmol/L (136-145)
[2023-11-23 04:47] LABS: Bilirubin, Total 0.2 mg/dL (0.2-1.0); Total Protein 7.3 g/dL (5.7-8.2)
[2023-11-23 05:00] LABS: Potassium 5.6 mmol/L (3.5-5.1)
[2023-11-23] MEDS: LORazepam 0.5 MG TAB PO ONE (05:00)
[2023-11-23 05:03] LABS: INR 1.06 (0.9-1.15); Partial Thromboplastin Time 29.3 SEC (24.5-34.5); Prothrombin Time 11.2 sec (9.3-11.8)
[2023-11-23] MEDS: SODIUM BICARB 8.4% 50Meq/50ml SYR INJ IV ONE (05:15)
[2023-11-23] MEDS: CALCIUM GLUC 1,000mg/50ml-NS 50 ML IV ONE (05:15)
[2023-11-23] MEDS: InsuLIN REG 1unit/0.01ml Soln (100units/ml) IV ONE (05:15)
[2023-11-23] MEDS: SODIUM ZIRCONIUM CYCL 10 GM PAK PO ONE (05:15)
[2023-11-23] MEDS: DEXTROSE (50%) 50ML SYRG IV ONE (05:15)
[2023-11-23] MEDS: ALBUTEROL SULF 2.5 MG/0.5ML(0.5%) NEB SOLN NEB ONE ×2 (05:53→06:08)
[2023-11-23] MEDS: ALBUTEROL SULF 2.5 MG/0.5ML(0.5%) NEB SOLN ONE (06:09)
[2023-11-23] MEDS ORDERED: ALBUTEROL SULF 2.5 MG/0.5ML(0.5%) NEB SOLN NEB ONE ×3 (06:15)
[2023-11-23 06:40] VITALS: BP 165/92; RESP 14; TEMP 98.7
[2023-11-23 06:42] VITALS: PULSE 87; O2SAT 95
== END 2023-11-23 06:49 | disposition home or self-care (01) ==
LOC: ER 03:50
DX: E87.5 Hyperkalemia (principal); R07.89 Other chest pain; E78.5 Hyperlipidemia, unspecified; I13.2 Hypertensive heart and chronic kidney disease with heart failure and with stage 5 chronic kidney disease, or end stage renal disease; E11.22 Type 2 diabetes mellitus with diabetic chronic kidney disease; N18.6 End stage renal disease; I50.89 Other heart failure; Z88.8 Allergy status to other drugs, medicaments and biological substances; Z79.899 Other long term (current) drug therapy; Z79.1 Long term (current) use of non-steroidal anti-inflammatories (NSAID); Z79.4 Long term (current) use of insulin
CPT/HCPCS: 36415; 71045; 80053; 83735; 83880; 84484; 85025; 85610; 85730; 93005; 94640

== ENCOUNTER 2023-12-20 15:57 | Inpatient (IN) | payer MEDICAID, MEDICARE ==
[~2023-12-20] VITALS: Ht 172.7 cm; Wt 73.0 kg
[2023-12-20 16:25] LABS: Basophils # (auto) 0.1 10 ^3/uL (0-0.2); Basophils % (auto) 1.5 % (0.0-2.0); Eosinophils # (auto) 0.1 10 ^3/uL (0-0.8); Eosinophils % (auto) 2.5 % (0.0-7.0); Hematocrit 29.1 % (41.0-53.0); Hemoglobin 9.7 g/dL (13.5-17.5); Lymphocytes # (auto) 0.5 10 ^3/uL (0.4-5.4); Mean Corpuscular Hemoglobin 31.3 pg (28.0-32.0); Mean Corpuscular Hgb Conc. 33.4 g/dL (32.0-36.0); Mean Corpuscular Volume 93.7 fL (80.0-100.0); Monocytes # (auto) 0.3 10 ^3/uL (0-1.3); Monocytes % (auto) 6.6 % (0.0-12.0); Neutrophils # (auto) 4.1 10 ^3/uL (1.6-8.6); Neutrophils % (auto) 80.4 % (37.0-80.0); Nucleated Red Blood Cells % 0.1 %; Platelet Count (auto) 198 10^3/uL (140-450); Red Blood Cells 3.11 10^6/uL (4.5-5.90); Red Cell Distribution Width 16.3 % (11.8-14.3); White Blood Cell 5.1 10^3/uL (4.4-10.8)
[2023-12-20 16:39] LABS: Alanine Aminotransferase 12 U/L (7-40); Albumin 4.3 g/dL (3.2-4.8); Alkaline Phosphatase 109 U/L (46-116); Anion Gap 9 (5-15); Aspartate Aminotransferase 13 U/L (13-40); BUN/Creatinine Ratio 5.3 (10.0-20.0); Bilirubin, Total 0.3 mg/dL (0.2-1.0); Blood Urea Nitrogen 47 mg/dL (9-23); Calcium 10.3 mg/dL (8.7-10.4); Carbon Dioxide 27 mmol/L (20-30); Chloride 96 mmol/L (98-107); Glucose 271 mg/dL (74-106); Sodium 132 mmol/L (136-145); Total Protein 7.1 g/dL (5.7-8.2)
[2023-12-20 16:48] LABS: Potassium 6.2 mmol/L (3.5-5.1)
[2023-12-20] MEDS: ALBUTEROL SULF 2.5 MG/0.5ML(0.5%) NEB SOLN ONE (17:19)
[2023-12-20] MEDS: FUROSEMIDE 40 MG/4 ML VIAL IV ONE (17:40)
[2023-12-20] MEDS: ALBUTEROL SULF 2.5 MG/0.5ML(0.5%) NEB SOLN NEB ONE (17:44)
[2023-12-20] MEDS ORDERED: NITROGLYCERIN 0.4 MG SL TAB SL PRN (18:30)
[2023-12-20] MEDS ORDERED: ONDANSETRON HCL 4 MG/2 ML VIAL IV PRN (18:30)
[2023-12-20 19:00] VITALS: PULSE 107; RESP 18; O2SAT 97
[2023-12-20] MEDS: CALCIUM GLUC 1,000mg/50ml-NS 50 ML IV ONE (19:09)
[2023-12-20] MEDS: SODIUM ZIRCONIUM CYCL 10 GM PAK PO ONE (19:09)
[2023-12-20] MEDS: SODIUM BICARB 8.4% 50Meq/50ml SYR INJ IV ONE (19:09)
[2023-12-20] MEDS: InsuLIN REG 1unit/0.01ml Soln (100units/ml) IV ONE (19:09)
[2023-12-20 19:26] VITALS: PULSE 108; RESP 20; O2SAT 88
[2023-12-20 19:26] LABS: Potassium 4.9 mmol/L (3.5-5.1)
[2023-12-20 19:29] LABS: INR 1.05 (0.9-1.15); Prothrombin Time 11.1 sec (9.3-11.8)
[2023-12-20 19:33] LABS: Magnesium 2.8 mg/dL (1.6-2.6)
[2023-12-20 19:34] LABS: Phosphorus 6.5 mg/dL (2.4-5.1)
[2023-12-20] MEDS: LORazepam 0.5 MG TAB PO PRN (20:08)
[2023-12-20] MEDS: ERGOCALCIFEROL 50,000 UNIT(1.25MG) CAP PO SCH (20:32)
[2023-12-20] MEDS: ACETAMINOPHEN 325 MG TAB PO PRN (20:32)
[2023-12-20 20:56] LABS: COVID19 ANTIGEN SOFIA FIA NEGATIVE (NEGATIVE); Rapid Influenza A Negative (Negative); Rapid Influenza B Negative (Negative)
[2023-12-20] MEDS: NITROGLYCERIN 0.4 MG SL TAB SL PRN (21:46)
[2023-12-20] MEDS ORDERED: TICAGRELOR 60 MG TAB PO SCH (22:00)
[2023-12-20] MEDS ORDERED: ATORVASTATIN 20 MG TAB PO SCH (22:00)
[2023-12-20] MEDS: INSULIN LANTUS (GLARGINE) 1 /0.01ml (100units/ml) SC SCH (22:51)
[2023-12-20] MEDS: hydrALAZINE HCL 25 MG TAB PO SCH (22:52)
[2023-12-20] MEDS: traZODone HCL 50 MG TAB PO SCH (22:53)
[2023-12-20] MEDS: ATORVASTATIN 20 MG TAB PO SCH (22:54)
[2023-12-21] VITALS (8 sets, daily range): BP systolic 132–153; BP diastolic 77–93; PULSE 71–91; RESP 14–20; TEMP 97.2–98.2; O2SAT 91–100
[2023-12-21 05:02] LABS: Basophils # (auto) 0 10 ^3/uL (0-0.2); Basophils % (auto) 1.1 % (0.0-2.0); Eosinophils # (auto) 0.1 10 ^3/uL (0-0.8); Eosinophils % (auto) 2.7 % (0.0-7.0); Hematocrit 25.7 % (41.0-53.0); Lymphocytes # (auto) 0.7 10 ^3/uL (0.4-5.4); Lymphocytes % (auto) 14.8 % (10.0-50.0); Mean Corpuscular Hemoglobin 32.5 pg (28.0-32.0); Mean Corpuscular Hgb Conc. 34.9 g/dL (32.0-36.0); Mean Corpuscular Volume 93.1 fL (80.0-100.0); Monocytes # (auto) 0.5 10 ^3/uL (0-1.3); Monocytes % (auto) 10.6 % (0.0-12.0); Neutrophils # (auto) 3.3 10 ^3/uL (1.6-8.6); Neutrophils % (auto) 70.8 % (37.0-80.0); Platelet Count (auto) 169 10^3/uL (140-450); Red Blood Cells 2.76 10^6/uL (4.5-5.90); Red Cell Distribution Width 16.8 % (11.8-14.3); White Blood Cell 4.6 10^3/uL (4.4-10.8)
[2023-12-21 05:20] LABS: Alanine Aminotransferase 11 U/L (7-40); Alkaline Phosphatase 133 U/L (46-116); Anion Gap 9 (5-15); Aspartate Aminotransferase 10 U/L (13-40); BUN/Creatinine Ratio 5.6 (10.0-20.0); Bilirubin, Total 0.2 mg/dL (0.2-1.0); Blood Urea Nitrogen 54 mg/dL (9-23); Calcium 9.7 mg/dL (8.7-10.4); Carbon Dioxide 30 mmol/L (20-30); Chloride 97 mmol/L (98-107); Sodium 136 mmol/L (136-145); Total Protein 6.7 g/dL (5.7-8.2)
[2023-12-21 05:32] LABS: Glucose 114 mg/dL (74-106); Potassium 5.6 mmol/L (3.5-5.1)
[2023-12-21] MEDS: SODIUM ZIRCONIUM CYCL 10 GM PAK PO ONE ×2 (06:09→13:15)
[2023-12-21] MEDS: HYDROcodone-ACET 5/325MG TAB PO PRN (06:10)
[2023-12-21] MEDS: SEVELAMER 800 MG TAB PO SCH (08:45)
[2023-12-21] MEDS: DOCUSATE SOD 100 MG CAP PO SCH (10:00)
[2023-12-21] MEDS: TICAGRELOR 60 MG TAB PO SCH (10:00)
[2023-12-21] MEDS: NIFEdipine ER 30 MG TAB PO SCH (11:36)
[2023-12-21] MEDS: B-COMPLEX W/ C & FOLIC ACID(NEPHROVITE TAB) PO SCH (11:36)
[2023-12-21] MEDS: ASPirin 81 mg TAB PO SCH (11:36)
[2023-12-21] MEDS: METOPROLOL SUCCINATE XL 50 MG TAB PO SCH (11:37)
[2023-12-21] MEDS: SODIUM CHL 0.9% 1000 ML BAG XX ONE (13:00)
[2023-12-21 13:41] LABS: % Iron Saturation 15.3 % (20-55)
[2023-12-21] MEDS: diphenhdrAMINE HCL 25 MG CAP PO ONE (14:15)
[2023-12-21] MEDS: ALBUMIN 25% 100 ML IV SCH (15:00)
[2023-12-21] MEDS: EPOETIN ALFA-EPBX 4,000 UNIT/ML VIAL SC ONE (21:29)
[2023-12-22] VITALS (8 sets, daily range): BP systolic 111–140; BP diastolic 69–85; PULSE 69–79; RESP 16–19; TEMP 97.8–98.3; O2SAT 90–100
[2023-12-22] MEDS: ACCU-CHEK COMFORT CURVE STRIP VI SCH (16:55)
[2023-12-22] MEDS: InsuLIN REG 1unit/0.01ml Soln (100units/ml) SC SCH (16:55)
[2023-12-22] MEDS: SODIUM CHL 0.9% 1000 ML BAG XX ONE (17:30)
[2023-12-23] VITALS (11 sets, daily range): BP systolic 110–135; BP diastolic 64–80; PULSE 64–78; RESP 9–20; TEMP 36.4; O2SAT 97–100
[2023-12-23] MEDS ORDERED: SODIUM CHL 0.9% 1000 ML BAG XX ONE ×2 (07:00→08:30)
[2023-12-23] MEDS: SODIUM ZIRCONIUM CYCL 10 GM PAK PO ONE (08:45)
[2023-12-23] MEDS: DEXTROSE (50%) 50ML SYRG IV PRN (08:49)
[2023-12-23] MEDS: MIDAZOLAM HCL 2MG/2ML 2ml VIAL (1mg/ml) ONE (09:25)
[2023-12-23] MEDS: fentaNYL CITRATE 100 MCG/2 ML VL ONE (09:25)
[2023-12-23] MEDS: IOHEXOL 350 MG/ML 100ML IJ ONE (09:26)
[2023-12-23] MEDS: LIDOCAINE 2%HCL (LOCAL ANESTH.) INJ 20ML MDV ONE (09:26)
[2023-12-23] MEDS: HYDROmorphone HCL 2 MG/ML VL/or syr IV ONE (10:21)
[2023-12-23 10:47] LABS: Hepatitis B Surface Antigen Negative (Negative)
[2023-12-23 11:08] LABS: Hepatitis B Core IgM Negative; Hepatitis C Antibody Negative (Negative)
[2023-12-23] MEDS ORDERED: ATOR20TA50 PO (12:51)
[2023-12-23 16:33] LABS: Hepatitis A Ab IgM Negative
[2023-12-23 16:53] LABS: Hematocrit 33.8 % (41.0-53.0); Hemoglobin 10.9 g/dL (13.5-17.5)
[2023-12-23 17:09] LABS: Alanine Aminotransferase 13 U/L (7-40); Albumin 4.4 g/dL (3.2-4.8); Alkaline Phosphatase 119 U/L (46-116); Anion Gap 4 (5-15); Aspartate Aminotransferase 11 U/L (13-40); BUN/Creatinine Ratio 4.1 (10.0-20.0); Bilirubin, Total 0.3 mg/dL (0.2-1.0); Blood Urea Nitrogen 17 mg/dL (9-23); Calcium 10.2 mg/dL (8.7-10.4); Carbon Dioxide 32 mmol/L (20-30); Chloride 100 mmol/L (98-107); Glucose 125 mg/dL (74-106); Potassium 4.5 mmol/L (3.5-5.1); Sodium 136 mmol/L (136-145); Total Protein 7.3 g/dL (5.7-8.2)
[2023-12-23] MEDS ORDERED: EPOETIN ALFA-EPBX 4,000 UNIT/ML VIAL SC ONE ×2 (21:00)
== END 2023-12-23 17:55 | disposition home or self-care (01) | DRG 280 ==
LOC: ER 15:57 → TELE 18:42 → TELE-CENTR 18:42 → TELE-WESTW 12-21 09:33 → TELE-CENTR 12-22 06:20
PROVIDERS: ADMIT Nurse Practitioner Family; ATTEND Nurse Practitioner Acute Care
PROC: 5A1D70Z Performance of Urinary Filtration, Intermittent, Less than 6 Hours Per Day (ICD-10-PCS; 2023-12-21)
PROC: 5A1D70Z Performance of Urinary Filtration, Intermittent, Less than 6 Hours Per Day (ICD-10-PCS; 2023-12-22)
PROC: B215YZZ Fluoroscopy of Left Heart using Other Contrast (ICD-10-PCS; principal; 2023-12-23)
PROC: B211YZZ Fluoroscopy of Multiple Coronary Arteries using Other Contrast (ICD-10-PCS; 2023-12-23)
PROC: 5A1D70Z Performance of Urinary Filtration, Intermittent, Less than 6 Hours Per Day (ICD-10-PCS; 2023-12-23)
PROC: 4A023N7 Measurement of Cardiac Sampling and Pressure, Left Heart, Percutaneous Approach (ICD-10-PCS; 2023-12-23)
DX: I13.2 Hypertensive heart and chronic kidney disease with heart failure and with stage 5 chronic kidney disease, or end stage renal disease (principal); I50.23 Acute on chronic systolic (congestive) heart failure; I21.4 Non-ST elevation (NSTEMI) myocardial infarction; N18.6 End stage renal disease; J96.01 Acute respiratory failure with hypoxia; Z59.00 Homelessness unspecified; E87.20 Acidosis, unspecified; F41.9 Anxiety disorder, unspecified; F32.A Depression, unspecified; E87.5 Hyperkalemia; E78.5 Hyperlipidemia, unspecified; D64.9 Anemia, unspecified; E11.65 Type 2 diabetes mellitus with hyperglycemia; E11.22 Type 2 diabetes mellitus with diabetic chronic kidney disease; Z20.822 Contact with and (suspected) exposure to COVID-19; I25.2 Old myocardial infarction; Z79.899 Other long term (current) drug therapy; Z79.1 Long term (current) use of non-steroidal anti-inflammatories (NSAID); Z95.810 Presence of automatic (implantable) cardiac defibrillator; Z98.61 Coronary angioplasty status; Z88.7 Allergy status to serum and vaccine; Z91.199 Patient's noncompliance with other medical treatment and regimen due to unspecified reason; Z79.4 Long term (current) use of insulin; Z83.3 Family history of diabetes mellitus; Z82.49 Family history of ischemic heart disease and other diseases of the circulatory system; Z99.2 Dependence on renal dialysis
CPT/HCPCS: 36415; 71045; 80053; 80074; 82728; 82962; 83540; 83550; 83735; 84100; 84132; 84484; 85014; 85018; 85025; 85610; 87081; 87426; 87804; 90935; 93005; 93454; 94640; 99152; G0378; J1642; J1815; J2250; P9047

== ENCOUNTER → 2024-01-31 | Outpatient (CLI) | payer MEDICARE, MEDICAID ==
[~2024-01-31] MED LIST changes: +ATOR20TA50 PO; -HYDR-4902 PO; -LIDO5DIS21 TOP
== END | disposition home or self-care (01) ==
LOC: Rad HDHVI 12:49
PROVIDERS: ATTEND Internal Medicine Cardiovascular Disease
DX: I10 Essential (primary) hypertension (principal); R00.2 Palpitations
CPT/HCPCS: 93306

== ENCOUNTER 2024-07-16 21:56 | Inpatient (IN) | payer MEDICAID, MEDICARE ==
[~2024-07-16] VITALS: Ht 175.3 cm; Wt 76.1 kg
[2024-07-16] MEDS: ASPirin 325 MG TAB PO ONE (22:47)
[2024-07-16] MEDS: NITROGLYCERIN 0.4 MG SL TAB SL ONE (22:48)
[2024-07-16 23:00] LABS: Basophils # (auto) 0.1 10 ^3/uL (0-0.2); Basophils % (auto) 0.8 % (0.0-2.0); Eosinophils # (auto) 0.1 10 ^3/uL (0-0.8); Hemoglobin 10.9 g/dL (13.5-17.5); Lymphocytes # (auto) 0.5 10 ^3/uL (0.4-5.4); Lymphocytes % (auto) 7.1 % (10.0-50.0); Mean Corpuscular Hemoglobin 30.3 pg (28.0-32.0); Mean Corpuscular Volume 91.7 fL (80.0-100.0); Monocytes # (auto) 0.6 10 ^3/uL (0-1.3); Monocytes % (auto) 8.7 % (0.0-12.0); Neutrophils # (auto) 5.4 10 ^3/uL (1.6-8.6); Neutrophils % (auto) 81.4 % (37.0-80.0); Nucleated Red Blood Cells % 0.1 %; Platelet Count (auto) 221 10^3/uL (140-450); Red Blood Cells 3.59 10^6/uL (4.5-5.90); Red Cell Distribution Width 17.5 % (11.8-14.3); White Blood Cell 6.7 10^3/uL (4.4-10.8)
[2024-07-16 23:09] LABS: Chloride 100 mmol/L (98-107)
[2024-07-16 23:10] LABS: Anion Gap 14 (5-15); Calcium 9.6 mg/dL (8.7-10.4); Carbon Dioxide 21 mmol/L (20-31)
[2024-07-16 23:15] LABS: BUN/Creatinine Ratio 7.1 (10.0-20.0)
[2024-07-16 23:16] LABS: Glucose 109 mg/dL (74-106); Sodium 135 mmol/L (136-145)
[2024-07-16 23:17] LABS: Blood Urea Nitrogen 94 mg/dL (9-23); Potassium 6.2 mmol/L (3.5-5.1)
[2024-07-16] MEDS: HYDROcodone-ACET 5/325MG TAB PO ONE (23:37)
--- NOTE | 2024-07-16 23:42 | DVH ---
CHEST RADIOGRAPH Indication: cp Technique: Single frontal view of the chest was obtained Comparison: XY CHEST XRAY 1 VIEW on DOS: 12/22/23, XY CHEST PORTABLE on DOS: 12/20/23, XY CHEST PORTABLE on DOS: 11/23/23 FINDINGS: There is left ventricular prominence. Patient has a bipolar pacemaker AICD with leads in standard positions there are increased interstitia l markings suggesting possible chronic changes are no infiltrates or effusions. Lungs are well expand ed. The acromioclavicular joints are abnormal bilaterally suggesting possible chronic acromioclavicular j oint separation IMPRESSION: 1. Possible chronic pulmonary disease and possible chronic acromioclavicular joint separation. Follow -up CT examination of the chest is suggested
[2024-07-17] VITALS (14 sets, daily range): BP systolic 126–158; BP diastolic 57–83; PULSE 76–98; RESP 14–19; TEMP 97.9–98.5; O2SAT 94–100
[2024-07-17] MEDS: ALBUTEROL SULF 2.5 MG/0.5ML(0.5%) NEB SOLN NEB ONE (01:38)
--- NOTE | 2024-07-17 01:38 | ED.PDOC ---
History of Present Illness HPI Comments 54 y/o M presents with c/o chest, neck, and back pain, today. Patient endorses on sudden and unprovoked onset of symptoms, while at rest, at home, this evening. He reports on symptoms feeling similar to when he had an DC in the past. He denies any shortness of breath, nausea, vomiting, fever, chills, or other associated symptoms or modifiers at this time. Chief Complaint: Chest Pain Time Seen by MD: 22:00 Primary Care Provider: ofelia Reviewed Notes: Nurses Notes, Medications, Allergies Allergies: Uncoded Allergies: PNEUMONIA VACCINE (Allergy, Unknown, 09/16/23) Home Meds Active Scripts Atorvastatin Calcium (ATORVASTATIN CALCIUM) 20 Mg Tab, 40 MG PO HS for 30 Days, #60 TAB 2 Refills Prov:NAVIN CLEMENS NP 12/23/23 Diphenhydramine-Zinc Acetate (Benadryl Cream) 1 Applic Ap, 1 APPLIC TOP Q6HPRN PRN for 30 Days, #120 APPLIC Prov:ALANA CANNON RESIDENT 07/30/23 Acetaminophen (Acetaminophen) 325 Mg Tab, 650 MG PO Q6HP PRN for 30 Days, #240 TAB Prov:ALANA CANNON 07/30/23 Ergocalciferol (VITAMIN D 38201 UNIT) 50,[address] [place], [address] UNIT PO Q7D for 30 Days, #10 CAP Prov:ALANA CANNON 07/30/23 Ticagrelor Base (BRILINTA) 90 Mg Tab, 60 MG PO BID, #60 TAB 5 Refills Prov:LEIGHTON HARDY MD 11/06/22 B-Complex W/ C & Folic Acid (Mayra-Evan) Tab, 1 TAB PO DAILY for 30 Days, #30 TAB Prov:LEIGHTON HARDY MD 11/06/22 Albuterol Sulfate (VENTOLIN MDI) 90 Mcg Ih, 90 MCG IN Q6HP PRN, #1 INH 180 MCG Q6H NEEDED FOR SHORTNESS OF BREATH AND WHEEZING Prov:NOAM CORREA MD 04/26/21 Metoprolol Succinate (Toprol Xl) 50 Mg Tab, 100 MG PO DAILY for 30 Days, #60 TAB Prov:NOAM CORREA MD 12/30/19 Reported Medications Lorazepam (ATIVAN TABLET) 0.5 Mg Tb, 1 TAB PO TID PRN for ANXIETY, #90 TAB 10/16/23 Patients Own Medication (PATIENTS OWN MEDICATION) ., 1 PATCH TD DAILY PTS OWN MED-OBTAIN FROM PT AND SEND TO RX DRUG: FREQ: RX# EXP: DATE DISP: TECH: [facility]: 10/16/23 Sevelamer Carbonate (Sevelamer Carbonate) 800 Mg Tab, 5 TAB PO TIDWM, TAB 10/16/23 Insulin Glargine (Lantus) 100 Unit/Ml Inj, 15 UNIT SC HS, INJ 10/16/23 Trazodone Hcl (Trazodone Hcl) 150 Mg Tab, 150 MG PO for for sleep, MG 09/19/23 Nifedipine (Nifedipine Er) 90 Mg Tab, 1 TAB PO DAILY, #30 TAB 5 Refills 07/26/21 Hydralazine Hcl (Hydralazine Hcl) 50 Mg Tab, 50 MG PO TID for 30 Days, MG 07/26/21 Insulin Lispro (Human) (Humalog) 100 Unit/Ml Inj, 2-3 UNIT SC TID, INJ 12/20/19 Atorvastatin Calcium (ATORVASTATIN CALCIUM) 40 Mg Tab, 1 TAB PO HS, #30 TAB 5 Refills 03/27/19 Information Source: Patient Mode of Arrival: Ambulatory Past Medical History PAST MEDICAL HISTORY: Anxiety, CAD, CHF (Acute on chronic systolic heart failure with severe pulmonary vascular ), Depression, DM, ESRD (HD M/W/F), High Lipids, HTN, DC (NSTEMI, type 1 with noted small-vessel disease) Past Medical History (Other): acute hypoxic respiratory failure Surgical History: Pacemaker, PTCA Family History Family History: Reviewed,noncontributory to illness, Family hx of DM, Family hx of heart razia, Family hx of HTN Social History Smoker: Cigarettes Alcohol: Occasionally Drugs: Cocaine Lives In: Home All Other Systems: Reviewed and Negative (Comprehensive systems review obtained and negative except for what is stated in the HPI.) Physical Exam General Appearance: No Apparent Distress, Normal HEENT: Normal ENT Inspection, Pharynx Normal, TMs Normal Neck: Full Range of Motion, Non-Tender, Normal, Normal Inspection Respiratory: Chest Non-Tender, Lungs Clear, No Accessory Muscle Use, No Respiratory Distress, Normal Breath Sounds Cardiovascular: No Edema, No JVD, No Murmur, No Gallop, Normal Peripheral Pulses, Regular Rate/Rhythm, Other (pacemaker to left-chest wall ) Breast Exam: Deferred Gastrointestinal: No Organomegaly, Non Tender, No Pulsatile Mass, Normal Bowel Sounds, Soft Genitalia: Deferred Pelvic: Deferred Rectal: Deferred Extremities: No calf tenderness, Normal capillary refill, Normal inspection, Normal range of motion, Non-tender, No pedal edema, Other (left AV fistual with bruits and thrils ) Musculoskeletal : Apperance: Normal Neurologic: Alert, educational institution curator II-XII nml as Tested, No Motor Deficits, Normal Affect, Normal Mood, No Sensory Deficits Cerebellar Function: Normal Reflexes: Normal Skin: Dry, Normal Color, Warm Lymphatic: No Adenopathy Was a procedure done? Was a procedure done?: No Differential Dx Considerations may include: DC, ACS, PE, PNA, URI, viral syndrome, anxiety, angina, among others X-Ray, Labs, Meds, VS Vital Signs Date Time Temp Pulse Resp B/P (MAP) Pulse Ox O2 Delivery O2 Flow Rate FiO2 07/16/24 23:48 169/91 07/16/24 23:36 98.7 89 16 169/91 (117) 100 98.7 07/16/24 22:48 165/102 07/16/24 22:00 98.8 96 18 187/107 (133) 97 98.8 Lab Test 07/16/24 23:20 07/16/24 22:09 Range/Units Troponin I High Sensitivity 46 43 </=54 ng/L White Blood Count 6.7 4.4-10.8 10^3/uL Red Blood Count 3.59 L 4.5-5.90 10^6/uL Hemoglobin 10.9 L 13.5-17.5 g/dL Hematocrit 33.0 L 41.0-53.0 % Mean Corpuscular Volume 91.7 80.0-100.0 fL Mean Corpuscular Hemoglobin 30.3 28.0-32.0 pg Mean Corpuscular Hemoglobin Concent 33.0 32.0-36.0 g/dL Red Cell Distribution Width 17.5 H 11.8-14.3 % Platelet Count 221 140-450 10^3/uL Mean Platelet Volume 8.5 6.9-10.8 fL Neutrophils (%) (Auto) 81.4 H 37.0-80.0 % Lymphocytes (%) (Auto) 7.1 L 10.0-50.0 % Monocytes (%) (Auto) 8.7 0.0-12.0 % Eosinophils (%) (Auto) 2.0 0.0-7.0 % Basophils (%) (Auto) 0.8 0.0-2.0 % Neutrophils # (Auto) 5.4 1.6-8.6 10 ^3/uL Lymphocytes # (Auto) 0.5 0.4-5.4 10 ^3/uL Monocytes # (Auto) 0.6 0-1.3 10 ^3/uL Eosinophils # (Auto) 0.1 0-0.8 10 ^3/uL Basophils # (Auto) 0.1 0-0.2 10 ^3/uL Nucleated Red Blood Cells 0.1 % Sodium Level 135 L 136-145 mmol/L Potassium Level 6.2 *H 3.5-5.1 mmol/L Chloride Level 100 98-107 mmol/L Carbon Dioxide Level 21 20-31 mmol/L Anion Gap 14 5-15 Blood Urea Nitrogen 94 *H 9-23 mg/dL Creatinine 13.33 *H 0.700-1.30 mg/dL Glomerular Filtration Rate Calc 4 >90 mL/min BUN/Creatinine Ratio 7.1 L 10.0-20.0 Serum Glucose 109 H 74-106 mg/dL Calcium Level 9.6 8.7-10.4 mg/dL Current Medications Medications (Trade) Dose Ordered Sig/Caroline Route Start Time Stop Time Status Last Admin Aspirin 325 mg ONCE ONCE PO 07/16/24 22:30 07/16/24 22:32 DC 07/16/24 22:47 Nitroglycerin (Ntrostat Sublingual) 0.4 mg ONCE ONCE SL 07/16/24 22:30 07/16/24 22:32 DC 07/16/24 22:48 Acetaminophen/ Hydrocodone Bitart ([place] 5/325MG Tab) 1 tab ONCE ONCE PO 07/16/24 23:15 07/16/24 23:16 DC 07/16/24 23:37 Albuterol (Ventolin Medneb) 20 mg ONCE ONCE NEB 07/17/24 01:30 07/17/24 01:31 DC 07/17/24 01:38 [facility] [id number] [place] [id number] Ph: [phone] DIAGNOSTIC IMAGING Diagnostic Imaging Report : [id number] Signed PATIENT: CODY SUAREZ ACCT: [id number] UNIT: [id number] : 1970 LOC: ER ROOM / BED: / AGE / SEX: 54 / M ADM STATUS: REG ER SERVICE 29 ORDERING PHYSICIAN: TRICIA SANCHEZ MD PROCEDURE(s): CXRP - CHEST PORTABLE REASON: cp ORDER NUMBER(s): [id number], ACCESSION NUMBER(s): [id number] CHEST RADIOGRAPH Indication: cp Technique: Single frontal view of the chest was obtained Comparison: XY CHEST XRAY 1 VIEW on DOS: 12/22/23, XY CHEST PORTABLE on DOS: 12/20/23, XY CHEST PORTABLE on DOS: 11/23/23 FINDINGS: There is left ventricular prominence. Patient has a bipolar pacemaker AICD with leads in standard positions there are increased interstitial markings suggesting possible chronic changes are no infiltrates or effusions. Lungs are well expanded. The acromioclavicular joints are abnormal bilaterally suggesting possible chronic acromioclavicular joint separation IMPRESSION: 1. Possible chronic pulmonary disease and possible chronic acromioclavicular joint separation. Follow-up CT examination of the chest is suggested ATED BY: GOOD KO MD DICTATED DATE/TIME: 07/16/242338 SIGNED BY: GOOD KO MD SIGNED DATE/TIME: 07/16/242338 CC: Time of 1ST Reevaluation: 22:30 Reevaluation 1ST: Unchanged Patient Education/Counseling: Diagnosis, Treatment, Prognosis, Need For Follow Up Family Education/Counseling: No Family Present Additional Information Previous visit documents reviewed: December 20, 2023 encounter for acute chest pain The following tests were ordered, and results were reviewed by me: CXR, BMP, CBC, EKG, troponin, accucheck Additional Information was gathered from interviewing the following independent historians: I reviewed and agreed with the following test results read by other providers: CXR I discussed treatment and results with medical personnel and: Patient Departure 1 Departure Time of Disposition: 01:40 Impression: Primary Impression: Unstable angina Additional Impressions: ESRD (end stage renal disease) Hyperkalemia Noncompliance Disposition: ADMITTED INPATIENT Admit to: Tele Condition: Stable Discharged With: Self Critical Care Note Critical Care Time?: Yes (55 min-critical care time only) Critical care comment: Due to concerns for patients condition deteriorating, the care required my highest level of attention and readiness to intervene. I assessed the patient, reviewed the medical records, ordered the appropriate tests and treatments, then reassessed for results and responsiveness. I communicated with medical personnel and consultants and formulated a plan of care. Total critical care time excludes any procedures Stability Stability form required: No Heart Score Heart Score: Heart Score Response (Comments) Value History Moderate Suspicious 1 EKG Normal 0 Age 45-64 1 Risk Factors >3 or Hx ASHD 2 Troponin Normal limit 0 Total 4 I personally scribed for TRICIA SANCHEZ MD ([email or web address]) on 07/17/24 at 01:38. El ectronically submitted by Amos Bridges ([email or web address]). TRICIA SANCHEZ MD Jul 17, 2024 01:38
[2024-07-17] MEDS: CALCIUM GLUC 1,000mg/50ml-NS 50 ML IV ONE (01:47)
[2024-07-17] MEDS: DEXTROSE (50%) 50ML SYRG IV ONE ×2 (02:03→04:58)
[2024-07-17] MEDS: SODIUM BICARB 8.4% 50Meq/50ml SYR INJ IV ONE (02:04)
[2024-07-17] MEDS: InsuLIN REG 1unit/0.01ml Soln (100units/ml) IV ONE (02:05)
[2024-07-17] MEDS: SODIUM ZIRCONIUM CYCL 10 GM PAK PO ONE ×2 (02:12→08:23)
[2024-07-17] MEDS: LORazepam 2MG/ML-1ML VIAL IV ONE ×2 (04:01→14:28)
[2024-07-17] MEDS ORDERED: ACETAMINOPHEN 325 MG TAB PO PRN (04:15)
[2024-07-17] MEDS ORDERED: MORPHINE SULFATE INJ 2 MG/ml SYRG IV PRN (04:15)
[2024-07-17] MEDS ORDERED: HYDROcodone-ACET 5/325MG TAB PO PRN (04:15)
[2024-07-17] MEDS ORDERED: NITROGLYCERIN 0.4 MG SL TAB SL PRN (04:15)
[2024-07-17] MEDS: ATORVASTATIN 20 MG TAB PO ONE (04:38)
[2024-07-17] MEDS: AZITHROMYCIN 500MG/ 250ML 250 ML IV ONE (04:39)
[2024-07-17] MEDS: NIFEdipine ER 30 MG TAB PO ONE (04:46)
[2024-07-17] MEDS: ASPirin 81 mg TAB PO ONE (04:46)
[2024-07-17 04:47] LABS: Basophils # (auto) 0.1 10 ^3/uL (0-0.2); Eosinophils # (auto) 0.1 10 ^3/uL (0-0.8); Eosinophils % (auto) 1.4 % (0.0-7.0); Hematocrit 30.4 % (41.0-53.0); Hemoglobin 10.1 g/dL (13.5-17.5); Lymphocytes # (auto) 0.5 10 ^3/uL (0.4-5.4); Lymphocytes % (auto) 7.3 % (10.0-50.0); Mean Corpuscular Hemoglobin 30.3 pg (28.0-32.0); Mean Corpuscular Hgb Conc. 33.1 g/dL (32.0-36.0); Mean Corpuscular Volume 91.4 fL (80.0-100.0); Monocytes # (auto) 0.6 10 ^3/uL (0-1.3); Monocytes % (auto) 8.3 % (0.0-12.0); Neutrophils # (auto) 6.2 10 ^3/uL (1.6-8.6); Platelet Count (auto) 203 10^3/uL (140-450); Red Blood Cells 3.33 10^6/uL (4.5-5.90); Red Cell Distribution Width 17.6 % (11.8-14.3); White Blood Cell 7.5 10^3/uL (4.4-10.8)
[2024-07-17] MEDS: SEVELAMER 800 MG TAB PO ONE (04:47)
[2024-07-17] MEDS: METOPROLOL SUCCINATE XL 50 MG TAB PO ONE (04:47)
[2024-07-17] MEDS: HYDROcodone-ACET 5/325MG TAB PO PRN (04:48)
[2024-07-17] MEDS: metroNIDAZOLE 500MG/100ML 100 ML IV ONE (04:49)
--- NOTE | 2024-07-17 04:49 | DVHHPRES ---
History of Present Illness Resident Creating Document: CELSO HARRIS RESDIENT History of Present Illness This is a 54-year-old male with past medical history of hypertension, diabetes type 2, hyperlipidemia, ESRD on maintenance hemodialysis (Mondays/Wednesdays/Fridays, missed last HD on Wednesday), heart failure with reduced ejection fraction, CAD (status post PCI) came to the hospital due to shortness of breaths and chest pain since 1 day. Chest pain is localized on left sided with no radiation, constant, pressure-like in nature, 8/10, reproducible with touching and taking deep inspiration. He also reports chills, cough, back pain, nausea, sore throat, diarrhea, dysuria and urgency. He denies fever, or any recent sick contact. Previous hospitalization: Patient was admitted on December 20, 2023 at [facility], due to chest pain, underwent left heart catheterization, found to have small-vessel disease and was recommended aggressive medical management by Dr. Campbell PMHx: hypertension, diabetes type 2, hyperlipidemia, ESRD on maintenance hemodialysis (Mondays/Wednesdays/Fridays, missed last HD on Wednesday), heart failure with reduced ejection fraction, CAD (status post PCI) PSHx: PCI, status post pacemaker Family history: Noncontributory Social history: Lives in a Van, current smoker denies any other drug use Home medication: Atorvastatin, albuterol, ergocalciferol, hydralazine, insulin Lantus, metoprolol, nifedipine, sevelamer Allergic history: Pneumonia vaccine Review of Systems Review of Systems General: patient denies fever, fatigue, weaknes, sweating, any recent changes in appetite and weight HEENT: Reports sore throat Cardiovascular: Reports chest pain Respiratory: Reports cough and shortness of breaths Gastrointestinal: Reports nausea and abdominal pain Genitourinary: Reports dysuria and urgency Endocrine: No heat or cold intolerance, polydipsia, polyuria, and polyphagia. Neurological: No dizziness, extremity weakness and numbness, tremors, gait disturbance, seizures, and memory impairment. Psychiatric: Denies depression, anxiety,or insomnia. Musculoskeletal: Reports back pain Skin: No rashes, itching, skin lesion, changes in hair, nail, skin texture and breast. Hematologic/Lymphatic: Denies easy bruising, bleeding tendencies, or lymph node enlargement. Constitutional: Yes: Fever Allergies: Uncoded Allergies: PNEUMONIA VACCINE (Allergy, Unknown, 09/16/23) Medications Current Medications Medications Dose Ordered Sig/Caroline Route Start Time Stop Time Status Last Admin Dose Admin Acetaminophen 650 mg Q6HP PRN PO 07/17/24 04:15 UNV Acetaminophen/ Hydrocodone Bitart 1 tab Q4HP PRN PO 07/17/24 04:15 UNV Ondansetron HCl 4 mg Q4HP PRN IV 07/17/24 04:15 UNV Enoxaparin Sodium 30 mg DAILY SC 07/17/24 10:00 UNV Nitroglycerin 0.4 mg Q5MINP PRN SL 07/17/24 04:15 UNV Morphine Sulfate 2 mg Q30M PRN IV 07/17/24 04:15 UNV Ipratropium [place] 0.5 mg Q4HWA NEB 07/17/24 06:00 UNV Levalbuterol HCl 0.625 mg Q6HR NEB 07/17/24 06:00 UNV Azithromycin 250 ml @ 125 mls/hr DAILY IV 07/17/24 10:00 UNV Atorvastatin Calcium 40 mg HS PO 07/17/24 22:00 UNV Insulin Glargine QAM SC 07/17/24 07:00 UNV Metoprolol Succinate 50 mg DAILY PO 07/17/24 10:00 UNV Nifedipine 90 mg DAILY PO 07/17/24 10:00 UNV Sevelamer HCl 800 mg TIDWM PO 07/17/24 08:00 UNV Aspirin 81 mg DAILY PO 07/17/24 10:00 UNV Acetaminophen/ Hydrocodone Bitart 1 tab Q4HPRN PRN PO 07/17/24 04:15 UNV Exam Vital Signs Vital Signs Date Time Temp Pulse Resp B/P (MAP) Pulse Ox O2 Delivery O2 Flow Rate FiO2 07/17/24 04:00 104 07/17/24 02:43 15 96 Room Air* 0 21 07/17/24 02:05 98.2 143/80 (101) 98.2 Exam General Appearance: Alert, Oriented X3, Cooperative, in mild respiratory dist ress HEENT: Atraumatic, PERRLA, EOMI, Mucous membrane moist/pink Respiratory: Bilateral lower zone crackles Cardiovascular: Regular rate, Normal S1, Normal S2, No murmurs, no chest wall tenderness Abdominal: Normal bowel sounds, Soft, No tenderness, No hepatospenomegaly, No masses Extremities: No clubbing, No cyanosis, No edema, Normal pulses, No tenderness/swelling Skin: 5 in 5 cm lipoma at the back, mildly tender, has a fistula at the left upper limb, patent, with no sign of infection, normal distal pulses Neuro: Normal gait, Normal speech, Strength at 5/5 X4 ext, Normal tone, Sensation intact, Cranial nerves 3-12 NL, Reflexes 2+ Psych/Mental Status: Mental status NL, Mood NL Labs/Xrays Labs Test 07/17/24 03:20 07/17/24 01:49 07/16/24 22:09 Range/Units POC Glucose 33 *L 70-106 mg/dl Troponin I High Sensitivity 41 </=54 ng/L White Blood Count 6.7 4.4-10.8 10^3/uL Red Blood Count 3.59 L 4.5-5.90 10^6/uL Hemoglobin 10.9 L 13.5-17.5 g/dL Hematocrit 33.0 L 41.0-53.0 % Mean Corpuscular Volume 91.7 80.0-100.0 fL Mean Corpuscular Hemoglobin 30.3 28.0-32.0 pg Mean Corpuscular Hemoglobin Concent 33.0 32.0-36.0 g/dL Red Cell Distribution Width 17.5 H 11.8-14.3 % Platelet Count 221 140-450 10^3/uL Mean Platelet Volume 8.5 6.9-10.8 fL Neutrophils (%) (Auto) 81.4 H 37.0-80.0 % Lymphocytes (%) (Auto) 7.1 L 10.0-50.0 % Monocytes (%) (Auto) 8.7 0.0-12.0 % Eosinophils (%) (Auto) 2.0 0.0-7.0 % Basophils (%) (Auto) 0.8 0.0-2.0 % Neutrophils # (Auto) 5.4 1.6-8.6 10 ^3/uL Lymphocytes # (Auto) 0.5 0.4-5.4 10 ^3/uL Monocytes # (Auto) 0.6 0-1.3 10 ^3/uL Eosinophils # (Auto) 0.1 0-0.8 10 ^3/uL Basophils # (Auto) 0.1 0-0.2 10 ^3/uL Nucleated Red Blood Cells 0.1 % Sodium Level 135 L 136-145 mmol/L Potassium Level 6.2 *H 3.5-5.1 mmol/L Chloride Level 100 98-107 mmol/L Carbon Dioxide Level 21 20-31 mmol/L Anion Gap 14 5-15 Blood Urea Nitrogen 94 *H 9-23 mg/dL Creatinine 13.33 *H 0.700-1.30 mg/dL Glomerular Filtration Rate Calc 4 >90 mL/min BUN/Creatinine Ratio 7.1 L 10.0-20.0 Serum Glucose 109 H 74-106 mg/dL Calcium Level 9.6 8.7-10.4 mg/dL Assessment/Plan Assessment/Plan Acute hypoxic respiratory failure, likely due to CHF exacerbation/volume overload Acute on chronic systolic heart failure Hypertensive Emergency leading to HF ESRD on maintenance hemodialysis, missed last HD on Wednesday Volume overload, due to missed HD Hyperkalemia, likely due to missed HD EKGs shows normal sinus rhythm with no acute ST or T-wave changes Trop I serial is within normal limits Echocardiogram from 01/30/2025, shows EF < 30% Chest x-ray shows cardiomegaly with pacemaker in-situ Consulted nephrology Lasix Continue home medicine, metoprolol and nifedipine Breathing treatment Hyperkalemia protocol given Potassium trend Mild anemia, likely due to ESRD Diabetes type 2, continue Lantus and insulin regular according to mild SS Dyslipidemia, continue atorvastatin Coronary artery disease, status post PCI Status post pacemaker History of asthma, continue breathing treatment Gastroenteritis Stool studies Empiric antibiotic, Flagyl and Rocephin DIET: Diabetic diet DVT PROPHYLAXIS: Lovenox GI PROPHYLAXIS:: Protonix CODE STATUS: Goal of care discussed for more than 18 minutes, full code DISPOSITION: Telemetry Patient's status and plan discussed with the patient. Case discussed with Dr. Staley. Plan discussed with: Patient, Other (RN) My Orders Orders - CELSO HARRIS Procedure Category Date Status Time Admit ADMIT 07/17/24 Transmitted 04:07 Code Status CODE 07/17/24 Transmitted 04:07 Vital Signs JADE 07/17/24 In Process 04:07 Review Orders With JADE 07/17/24 In Process Adm. 04:07 Consistent DIET 07/17/24 Transmitted Carb(Ccho)Diabetes Breakfast Acetaminophen Tablet PHA 07/17/24 Logged (Tylenol Tablet) 04:15 Notify Md Of Changes [facility] 07/17/24 In Process From Base 04:07 Advance Directive [facility] 07/17/24 In Process 04:07 Urinalysis LAB 07/17/24 Logged 04:07 Patient Condition ORDERS 07/17/24 Transmitted 04:07 Allergies [facility] 07/17/24 In Process 04:07 Hydrocodone-Acet PHA 07/17/24 Logged 5/325mg Tab ([place] 04:15 Ondansetron Hcl PHA 07/17/24 Logged (Zofran) 04:15 Drug Screen LAB 07/17/24 Logged 04:07 Hemoglobin A1c LAB 07/17/24 Logged 04:07 Enoxaparin Sodium PHA 07/17/24 Logged (Lovenox) 10:00 Nitroglycerin [facility] 07/17/24 Logged Sublingual (Ntrostat 04:15 Morphine Sulfate PHA 07/17/24 Logged Injection 04:15 Oxygen By Nasal RT 07/17/24 Transmitted Cannula 04:07 Stat Ekg For Chest [facility] 07/17/24 In Process Pain 04:07 Notify Md Of Changes [facility] 07/17/24 In Process From Base 04:07 Lead Caster Helper For [facility] 07/17/24 In Process 24 Hours 04:07 Emergency Dysrhythmia [facility] 07/17/24 In Process Protocol 04:07 Rhythm Strips Once [facility] 07/17/24 In Process Every Shift 04:07 Complete Blood Count LAB 07/17/24 Logged 04:07 Comprehensive LAB 07/17/24 Logged Metabolic Panel 04:07 PTPTT LAB 07/17/24 Logged 04:07 Covid19 Antigen Kat LAB 07/17/24 Logged Rapid Influenza A&B LAB 07/17/24 Logged 04:07 Mrsa Screen RODNEY 07/17/24 Logged 04:07 Respiratory Culture RODNEY 07/17/24 Logged W/ Gs 04:07 *Dr. Rhonda Llanos CONS 07/17/24 Transmitted Sarahi 04:07 Magnesium LAB 07/17/24 Logged 04:07 Ipratropium Medneb PHA 07/17/24 Logged (Atrovent Medneb) 06:00 Levalbuterol Hcl PHA 07/17/24 Logged (Xopenex Medneb) 06:00 Azithromycin 500mg/ PHA 07/17/24 Logged 250ml (Zithromax 50 10:00 Azithromycin 500mg/ PHA 07/17/24 Logged 250ml (Zithromax 50 04:15 Atorvastatin (Lipitor) PHA 07/17/24 Logged 04:15 Atorvastatin (Lipitor) PHA 07/17/24 Logged 22:00 Insulin Lantus PHA 07/17/24 Logged (Glargine) (Lantus) 07:00 Metoprolol Xl PHA 07/17/24 Logged Succinate (Toprol Xl) 04:15 Metoprolol Xl PHA 07/17/24 Logged Succinate (Toprol Xl) 10:00 Nifedipine Er PHA 07/17/24 Logged (Procardia Xl 10:00 Nifedipine Er PHA 07/17/24 Logged (Procardia Xl 04:15 Sevelamer (Renagel) PHA 07/17/24 Logged 04:15 Sevelamer (Renagel) PHA 07/17/24 Logged 08:00 Aspirin Tablet PHA 07/17/24 Logged 10:00 Aspirin Tablet PHA 07/17/24 Logged 04:15 Hydrocodone-Acet PHA 07/17/24 Logged 5/325mg Tab ([place] 04:15 Date of Service: Jul 17, 2024 Billing Provider: MILA STALEY MD Common Visit Codes: [id number] INP/OBS CARE (HIGH) CELSO HARRIS RESDIENT Jul 17, 2024 04:49 MILA STALEY MD Jul 17, 2024 11:26
[2024-07-17] MEDS: InsuLIN REG 1unit/0.01ml Soln (100units/ml) SC ONE (04:59)
[2024-07-17] MEDS: ACCU-CHEK COMFORT CURVE STRIP VI ONE (04:59)
[2024-07-17 05:04] LABS: INR 1.02 (0.9-1.15); Partial Thromboplastin Time 27.9 SEC (24.5-34.5); Prothrombin Time 10.8 sec (9.3-11.8)
[2024-07-17 05:16] LABS: Anion Gap 18 (5-15); BUN/Creatinine Ratio 7.2 (10.0-20.0); Calcium 9.4 mg/dL (8.7-10.4); Chloride 101 mmol/L (98-107); Sodium 137 mmol/L (136-145); Total Protein 6.7 g/dL (5.7-8.2)
[2024-07-17 05:17] LABS: Albumin 4.2 g/dL (3.2-4.8)
[2024-07-17] MEDS: cefTRIAXone 1GM/50ML D5W 50 ML IV ONE (05:18)
[2024-07-17 05:38] LABS: Alanine Aminotransferase < 9 U/L (7-40); Alkaline Phosphatase 138 U/L (46-116); Aspartate Aminotransferase < 8 U/L (13-40); Bilirubin, Total < 0.2 mg/dL (0.2-1.0); Carbon Dioxide 18 mmol/L (20-31); Glucose 124 mg/dL (74-106); Magnesium 2.9 mg/dL (1.6-2.6)
[2024-07-17 05:41] LABS: Blood Urea Nitrogen 97 mg/dL (9-23); Potassium 5.7 mmol/L (3.5-5.1)
[2024-07-17] MEDS: INSULIN LANTUS (GLARGINE) 1 /0.01ml (100units/ml) SC SCH (07:00)
[2024-07-17 07:57] LABS: COVID19 ANTIGEN SOFIA FIA NEGATIVE (NEGATIVE); Rapid Influenza A Negative (Negative); Rapid Influenza B Negative (Negative)
[2024-07-17] MEDS: LORazepam 2MG/ML-1ML VIAL ONE (08:00)
[2024-07-17] MEDS: LEVALBUTEROL HCL 1.25 MG/3 ML NEB NEB SCH (08:05)
[2024-07-17] MEDS: IPRATROPIUM BROM 0.5 MG/2.5ML INH SOL NEB SCH ×2 (08:05→09:30)
[2024-07-17] MEDS: COLCHICINE 0.6 MG CAP PO ONE (08:23)
[2024-07-17] MEDS: cefTRIAXone 1GM/50ML D5W 50 ML IV SCH (08:30)
--- NOTE | 2024-07-17 08:42 | DVHPN2 ---
Progress Note - Dictate Date Seen: Jul 17, 2024 Subjective PT WITH SS COMPLEX OF BUTT SOB CHEST PAIN PMH; HFrEF EF <35% S/P BiV AICD NOW WITH CHEST PAIN TROPONIN NEGATIVE ECG NO CHANGED PT WITH HYPERKALEMIA SEVERE ANEMIA ESRD ON HD DIABETES NEPHROPATHY NEUROPATHY VASCULOPATHY NOW WITH SEVERE HYPERKALEMIA AND HYPOGLYCEMIA CXR C/W INTERSTITIAL LUNG DISEASE vital signs Vital Sign Date Time Temp Pulse Resp B/P (MAP) Pulse Ox O2 Delivery O2 Flow Rate FiO2 07/17/24 08:35 98.2 94 16 152/83 (106) 97 98.2 07/17/24 04:20 0.0 21 07/17/24 02:43 Room Air* Total Intake and Output 07/16/24 07/16/24 07/17/24 15:00 23:00 07:00 Intake Total 100 ml Balance 100 ml medications Current Medications Medications Dose Ordered Sig/Caroline Route Start Time Stop Time Status Last Admin Dose Admin Acetaminophen 650 mg Q6HP PRN PO 07/17/24 04:15 Acetaminophen/ Hydrocodone Bitart 1 tab Q4HP PRN PO 07/17/24 04:15 07/17/24 04:48 1 TAB Ondansetron HCl 4 mg Q4HP PRN IV 07/17/24 04:15 Enoxaparin Sodium 30 mg DAILY SC 07/17/24 10:00 UNV Nitroglycerin 0.4 mg Q5MINP PRN SL 07/17/24 04:15 Morphine Sulfate 2 mg Q30M PRN IV 07/17/24 04:15 [address] [place] 0.5 mg Q4HWA NEB 07/17/24 06:00 Levalbuterol HCl 0.625 mg Q6HR NEB 07/17/24 06:00 Atorvastatin Calcium 40 mg HS PO 07/17/24 22:00 Insulin Glargine QAM SC 07/17/24 07:00 Metoprolol Succinate 50 mg DAILY PO 07/18/24 10:00 Nifedipine 90 mg DAILY PO 07/18/24 10:00 Sevelamer HCl 800 mg TIDWM PO 07/18/24 12:00 Aspirin 81 mg DAILY PO 07/18/24 10:00 Metronidazole 100 ml @ 100 mls/hr Q8HR IV 07/17/24 14:00 Ceftriaxone Sodium 50 ml @ 100 mls/hr DAILY@09 IV 07/17/24 09:00 07/17/24 08:30 100 MLS/HR Ipratropium [place] 0.5 mg Q6HR NEB 07/17/24 06:00 laboratory and microbiology Laboratory Tests 07/17/24 04:30 Test 07/17/24 04:30 Range/Units Serum Glucose 124 H 74-106 mg/dL Problem List SS COMPLEX OF BUTT SOB CHEST PAIN PMH; HFrEF EF <35% S/P BiV AICD NOW WITH CHEST PAIN TROPONIN NEGATIVE ECG NO CHANGED PT WITH HYPERKALEMIA SEVERE ANEMIA ESRD ON HD DIABETES NEPHROPATHY NEUROPATHY VASCULOPATHY NOW WITH SEVERE HYPERKALEMIA AND HYPOGLYCEMIA CXR C/W INTERSTITIAL LUNG DISEASE Assessment/Plan CORRECT HYPERKALEMIA DIALYSIS CORRECT VOLUME OVERLOAD AND HYPERKALEMIA Plan discussed with: Patient Critical Care Time(min): 35 LYUDMILA JORDAN MD Jul 17, 2024 08:42
[2024-07-17 09:26] LABS: Erythrocyte Sedimentation Rate 63 mm/hr (0-20)
[2024-07-17] MEDS ORDERED: ENOXAPARIN SOD 30 MG/0.3 ML SYRINGE SC SCH (10:00)
--- NOTE | 2024-07-17 11:15 | ECG ---
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
[2024-07-17] MEDS: metroNIDAZOLE 500MG/100ML 100 ML IV SCH (14:00)
[2024-07-17] MEDS: diphenhdrAMINE-ZINC ACETATE 1 APPLIC APPL TOP ONE (14:49)
--- NOTE | 2024-07-17 15:27 | DVHPNRES ---
Progress Note Date Seen: Jul 17, 2024 Resident Creating Document: TIA VICENTE RESIDENT Has the PT tested + for MRSA If YES, has PT been informed?: No Medical Necessity Reason Pt with a Central, PICC or Fol: No Subjective Review of Systems The patient is a 54-year-old male with a complex medical history of hypertension, type 2 diabetes mellitus, end-stage renal disease (ESRD) on hemodialysis (Wednesday, Wednesday, Wednesday schedule), hyperlipidemia, reduced ejection fraction (EF 30%), coronary artery disease status post PCI, and pacemaker implantation, who presents to the ED with shortness of breath and left-sided chest pain ongoing for the past 24 hours. The chest pain is non-radiating, constant, and described as pressure-like, rated 8/10. The pain is reproducible on palpation and deep inspiration, suggesting a possible musculoskeletal or inflammatory origin. No nausea, back pain, or cough associated. Patient reports clear phlegm with occasional cough. The patient missed his scheduled hemodialysis on Wednesday after leaving the session early on Wednesday due to anxiety and episodes of diarrhea. He has not dialyzed since then. In the ED, he was noted to be alert and oriented, in mild respiratory distress, with bilateral crackles in lower lung zones. A 5 cm lipoma on the back was noted, mildly tender. Initial labs showed elevated BUN/Cr (BUN ~97), hyperkalemia (treated), and elevated BNP (>3000). ECG showed NSR, no ischemic changes, and normal troponins. A bedside focused cardiac ultrasound revealed an IVC of ~2 cm with <50% compressibility, suggesting normal or elevated right-sided filling pressures, with no pleural effusion visualized Patient is anuric, has been given furosemide with no response, and will require urgent hemodialysis today. He received one dose of lorazepam for anxiety and is being monitored for further uremic complications. Excoriations on the lower extremities are present, likely related to uremic pruritus or possible elevated phosphate levels. Patient also mentioned possible anal pruritus (possible parasitic infection) which is under evaluation. REVIEW OF SYSTEMS (ROS): General: Fatigue, mild distress, no recent weight loss or fevers Cardiovascular: Chest pain (non-radiating), history of CAD and reduced EF Respiratory: Shortness of breath, clear sputum-producing cough GI: Recent diarrhea, no vomiting or abdominal pain : Anuric; no dysuria or hematuria Neuro: Alert and oriented, no focal deficits Skin: Pruritus and excoriations on lower extremities and anus Psych: Anxiety, treated with one dose of lorazepam Objective vital signs Vital Sign Date Time Temp Pulse Resp B/P (MAP) Pulse Ox O2 Delivery O2 Flow Rate FiO2 07/17/24 14:00 98.5 84 17 126/70 (88) 95 98.5 07/17/24 08:35 Room Air* 0 21 Total Intake and Output 07/16/24 07/16/24 07/17/24 15:00 23:00 07:00 Intake Total 100 ml Balance 100 ml medications Current Medications Medications Dose Ordered Sig/[place] Route Start Time Stop Time Status Last Admin Dose Admin Acetaminophen 650 mg Q6HP PRN PO 07/17/24 04:15 Acetaminophen/ Hydrocodone Bitart 1 tab Q4HP PRN PO 07/17/24 04:15 07/17/24 13:25 1 TAB Ondansetron HCl 4 mg Q4HP PRN IV 07/17/24 04:15 Enoxaparin Sodium 30 mg DAILY SC 07/17/24 10:00 Hold Nitroglycerin 0.4 mg Q5MINP PRN SL 07/17/24 04:15 Morphine Sulfate 2 mg Q30M PRN IV 07/17/24 04:15 Levalbuterol HCl 0.625 mg Q6HR NEB 07/17/24 06:00 07/17/24 12:19 0.625 MG Atorvastatin Calcium 40 mg HS PO 07/17/24 22:00 Insulin Glargine QAM SC 07/17/24 07:00 Metoprolol Succinate 50 mg DAILY PO 07/18/24 10:00 Nifedipine 90 mg DAILY PO 07/18/24 10:00 Sevelamer HCl 800 mg TIDWM PO 07/18/24 12:00 Aspirin 81 mg DAILY PO 07/18/24 10:00 Metronidazole 100 ml @ 100 mls/hr Q8HR IV 07/17/24 14:00 Ceftriaxone Sodium 50 ml @ 100 mls/hr DAILY@09 IV 07/17/24 09:00 07/17/24 08:30 100 MLS/HR Ipratropium [place] 0.5 mg Q6HR NEB 07/17/24 06:00 07/17/24 12:19 0.5 MG Zinc Acetate/ Diphenhydramine 1 applic Q6HP PRN TOP 07/17/24 14:00 Examination PHYSICAL EXAM: General: Alert, oriented x3, mild respiratory distress HEENT: Mucous membranes moist CV: RRR, no murmurs; pacemaker in situ Lungs: Bilateral lower zone crackles Abdomen: Soft, nontender, no guarding or rebound Extremities: mild tenderness, no erythema or discharge; excoriated lesions on bilateral LE Neuro: Grossly intact, no focal deficits Skin: 5 cm subcutaneous lipoma on back, mildly tender; uremic pruritus signs laboratory and microbiology Laboratory Tests 07/17/24 04:30 Test 07/17/24 04:30 Range/Units Serum Glucose 124 H 74-106 mg/dL Microbiology Date/Time Source Procedure Growth Status 07/17/24 05:37 Nose MRSA Screen - Final Complete Problem List/Assessment/Plan Problem List/Assessment/Plan #Non cardiac chest pain , likely multifactorial (pleuritic + MSK + possible uremic pericarditis) #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), to improve with HD - Pain reproducible with palpation and inspiration - Troponins normal, ECG without ischemia - IVC not collapsed , not hypovolemic #PossibleAcute on chronic Heart failure with reduced EF (EF 30%) exacerbation #Known CAD with pacemaker - Monitor volume status post-dialysis - Diuresis ineffective due to anuria #ESRD with missed dialysis -Elevated BUN/Cr, potassium managed -Uremic pruritus, excoriations on LE -Plan: HD, phosphate level monitoring, possible phosphate binder adjustment #Hyperkalemia resolved - Lokelma once - recheck after HD #Generalized anxiety disorder -Treated with Ativan 0.5 (home dose)1x for HD #Possible parasitic skin infection - Patient-reported; etiology unclear case discussed with goals of care:29 min code status: full code Plan discussed with: Patient My Orders My Orders Orders - TIA VICENTE Procedure Category Date Status Time Consistent DIET 07/17/24 Transmitted Carb(Ccho)Diabetes Lunch Diphenhdramine-Zinc PHA 07/17/24 In Process Cream (Benadryl Crea 14:00 Potassium LAB 07/17/24 Logged 17:02 Date of Service: Jul 17, 2024 Billing Provider: LAURITA SPARKS MD Common Visit Codes: [id number] INP/OBS CARE(HIGH) TIA VICENTE RESIDENT Jul 17, 2024 15:27 LAURITA SPARKS MD Jul 29, 2024 20:59
--- NOTE | 2024-07-17 18:15 | DVHINCON2 ---
Date of service: Jul 17, [address] Mohr Reason for Consultation Dialysis History of Present Illness 54 Y/O M with history of ESRD on HD, DM, HTN, systolic CHF (EF: 35%), s/p AICD, anemia of CKD, hyperphosphatemia, and secondary hyperparathyroidism presented with chief complaint of chest pain, and back pain. It started at rest. serial troponin is negative. K is 6.2 mmol/l. Nephrology consulted for maintenance of dialysis. Past Medical History ESRD DM HTN CHF Anemia secondary hyperparathyroidism Past Surgical History AVF creation AICD placement Allergies: Coded Allergies: Pneumococcal Vaccines (Verified Allergy, Unknown, 07/17/24) Home Meds Active Scripts Atorvastatin Calcium (ATORVASTATIN CALCIUM) 20 Mg Tab, 40 MG PO HS for 30 Days, #60 TAB 2 Refills Prov:NAVIN CLEMENS NP 12/23/23 Diphenhydramine-Zinc Acetate (Benadryl Cream) 1 Applic Ap, 1 APPLIC TOP Q6HPRN PRN for 30 Days, #120 APPLIC Prov:ALANA CANNON RESIDENT 07/30/23 Acetaminophen (Acetaminophen) 325 Mg Tab, 650 MG PO Q6HP PRN for 30 Days, #240 TAB Prov:ALANA CANNON 07/30/23 Ergocalciferol (VITAMIN D 27651 UNIT) 50,000 [place], [address] UNIT PO Q7D for 30 Days, #10 CAP Prov:ALANA CANNON 07/30/23 Ticagrelor Base (BRILINTA) 90 Mg Tab, 60 MG PO BID, #60 TAB 5 Refills Prov:LEIGHTON HARDY MD 11/06/22 B-Complex W/ C & Folic Acid (Mayra-Evan) Tab, 1 TAB PO DAILY for 30 Days, #30 TAB Prov:LEIGHTON HARDY MD 11/06/22 Albuterol Sulfate (VENTOLIN MDI) 90 Mcg Ih, 90 MCG IN Q6HP PRN, #1 INH 180 MCG Q6H NEEDED FOR SHORTNESS OF BREATH AND WHEEZING Prov:NOAM CORREA MD 04/26/21 Metoprolol Succinate (Toprol Xl) 50 Mg Tab, 100 MG PO DAILY for 30 Days, #60 TAB Prov:NOAM CORREA MD 12/30/19 Reported Medications Lorazepam (ATIVAN TABLET) 0.5 Mg Tb, 1 TAB PO TID PRN for ANXIETY, #90 TAB 10/16/23 Patients Own Medication (PATIENTS OWN MEDICATION) ., 1 PATCH TD DAILY PTS OWN MED-OBTAIN FROM PT AND SEND TO RX DRUG: FREQ: RX# EXP: DATE DISP: TECH: H: 10/16/23 Sevelamer Carbonate (Sevelamer Carbonate) 800 Mg Tab, 5 TAB PO TIDWM, TAB 10/16/23 Insulin Glargine (Lantus) 100 Unit/Ml Inj, 15 UNIT SC HS, INJ 10/16/23 Trazodone Hcl (Trazodone Hcl) 150 Mg Tab, 150 MG PO for for sleep, MG 09/19/23 Nifedipine (Nifedipine Er) 90 Mg Tab, 1 TAB PO DAILY, #30 TAB 5 Refills 07/26/21 Hydralazine Hcl (Hydralazine Hcl) 50 Mg Tab, 50 MG PO TID for 30 Days, MG 07/26/21 Insulin Lispro (Human) (Humalog) 100 Unit/Ml Inj, 2-3 UNIT SC TID, INJ 12/20/19 Atorvastatin Calcium (ATORVASTATIN CALCIUM) 40 Mg Tab, 1 TAB PO HS, #30 TAB 5 Refills 03/27/19 Current Medications Current Medications Medications (Trade) Dose Ordered Sig/Caroline Route PRN Reason Start Time Stop Time Status Last Admin Acetaminophen (Tylenol Tablet) 650 mg Q6HP PRN PO PAIN SCALE 1-3 OR TEMP>100.4 07/17/24 04:15 Acetaminophen/ Hydrocodone Bitart ([place] 5/325MG Tab) 1 tab Q4HP PRN PO MODERATE PAIN (4-6 PAIN SCALE) 07/17/24 04:15 07/17/24 13:25 Ondansetron HCl (Zofran) 4 mg Q4HP PRN IV NAUSEA / VOMITING 07/17/24 04:15 Enoxaparin Sodium (Lovenox) 30 mg DAILY SC 07/17/24 10:00 07/17/24 16:58 DC Nitroglycerin (Ntrostat Sublingual) 0.4 mg Q5MINP PRN SL FOR CHEST PAIN 07/17/24 04:15 Morphine Sulfate 2 mg Q30M PRN IV FOR CHEST PAIN 07/17/24 04:15 Ipratropium [place] (Atrovent Medneb) 0.5 mg Q4HWA NEB 07/17/24 06:00 07/17/24 12:24 DC Levalbuterol HCl (Xopenex Medneb) 0.625 mg Q6HR NEB 07/17/24 06:00 07/17/24 12:19 Azithromycin 250 ml @ 125 mls/hr DAILY IV 07/18/24 10:00 07/17/24 04:50 DC Atorvastatin Calcium (Lipitor) 40 mg HS PO 07/17/24 22:00 Insulin Glargine (Lantus) QAM SC 07/17/24 07:00 Metoprolol Succinate (Toprol Xl) 50 mg DAILY PO 07/18/24 10:00 Nifedipine (Procardia Xl (Time-Release)) 90 mg DAILY PO 07/18/24 10:00 Sevelamer HCl (Renagel) 800 mg TIDWM PO 07/18/24 12:00 Aspirin 81 mg DAILY PO 07/18/24 10:00 Acetaminophen/ Hydrocodone Bitart ([place] 5/325MG Tab) 1 tab Q4HPRN PRN PO MODERATE PAIN (4-6 PAIN SCALE) 07/17/24 04:15 07/17/24 04:24 DC Metronidazole 100 ml @ 100 mls/hr Q8HR IV 07/17/24 14:00 Ceftriaxone Sodium 50 ml @ 100 mls/hr DAILY@09 IV 07/17/24 09:00 07/17/24 08:30 Ipratropium [place] (Atrovent Medneb) 0.5 mg Q6HR NEB 07/17/24 06:00 07/17/24 12:19 Zinc Acetate/ Diphenhydramine (Benadryl Cream) 1 applic Q6HP PRN TOP FOR ITCHING 07/17/24 14:00 Heparin Sodium (Porcine) 5,000 units Q8HR SC 07/17/24 22:00 Family History: Arthritis G8 MOTHER Diabetes mellitus G8 MOTHER G8 SISTER Hypertension G8 MOTHER Review of Systems As per HPI, all other systems reviewed and are negative. H&P Exam Vital Signs/I&O Vital Sign Date Time Temp Pulse Resp B/P (MAP) Pulse Ox O2 Delivery O2 Flow Rate FiO2 07/17/24 16:44 97.9 84 16 127/57 (80) 97 97.9 07/17/24 14:05 Room Air* 0 21 Intake and Output 07/16/24 07/17/24 19:00 07:00 Intake Total 100 ml Balance 100 ml IV Total 100 ml Physical Exam HEENT: NC,AT Lungs: CTA b/l Cardiac: RRR, no murmur Abd: soft, no tenderness Ext: no edema Neuro: no focal deficits Labs/Diagnostic Data Labs/Diagnostic Data Laboratory Tests Test 07/17/24 18:14 07/17/24 17:23 07/17/24 08:21 07/17/24 06:59 Range/Units Erythrocyte Sedimentation Rate 63 H 0-20 mm/hr POC Glucose 148 H 70-106 mg/dl Test 07/17/24 05:39 07/17/24 04:30 07/17/24 03:20 07/17/24 02:36 Range/Units Influenza Type A Antigen Negative Negative Influenza Type B Antigen Negative Negative SARS-CoV-2 Antigen (Rapid) Negative NEGATIVE White Blood Count 7.5 4.4-10.8 10^3/uL Red Blood Count 3.33 L 4.5-5.90 10^6/uL Hemoglobin 10.1 L 13.5-17.5 g/dL Hematocrit 30.4 L 41.0-53.0 % Mean Corpuscular Volume 91.4 80.0-100.0 fL Mean Corpuscular Hemoglobin 30.3 28.0-32.0 pg Mean Corpuscular Hemoglobin Concent 33.1 32.0-36.0 g/dL Red Cell Distribution Width 17.6 H 11.8-14.3 % Platelet Count 203 140-450 10^3/uL Mean Platelet Volume 8.1 6.9-10.8 fL Neutrophils (%) (Auto) 82.0 H 37.0-80.0 % Lymphocytes (%) (Auto) 7.3 L 10.0-50.0 % Monocytes (%) (Auto) 8.3 0.0-12.0 % Eosinophils (%) (Auto) 1.4 0.0-7.0 % Basophils (%) (Auto) 1.0 0.0-2.0 % Neutrophils # (Auto) 6.2 1.6-8.6 10 ^3/uL Lymphocytes # (Auto) 0.5 0.4-5.4 10 ^3/uL Monocytes # (Auto) 0.6 0-1.3 10 ^3/uL Eosinophils # (Auto) 0.1 0-0.8 10 ^3/uL Basophils # (Auto) 0.1 0-0.2 10 ^3/uL Nucleated Red Blood Cells 0.0 % Prothrombin Time 10.8 9.3-11.8 sec Prothrombin Time INR 1.02 0.9-1.15 Activated Partial Thromboplast Time 27.9 24.5-34.5 SEC D-Dimer, Quantitative 2.26 H 0.0-0.49 mg/L FEU Sodium Level 137 136-145 mmol/L Potassium Level 5.7 *H 3.5-5.1 mmol/L Chloride Level 101 98-107 mmol/L Carbon Dioxide Level 18 L 20-31 mmol/L Anion Gap 18 H 5-15 Blood Urea Nitrogen 97 *H 9-23 mg/dL Creatinine 13.48 *H 0.700-1.30 mg/dL Glomerular Filtration Rate Calc 4 >90 mL/min BUN/Creatinine Ratio 7.2 L 10.0-20.0 Serum Glucose 124 H 74-106 mg/dL POC Glucose 126 H 33 *L 100 70-106 mg/dl Hemoglobin A1c 5.8 H <5.7 % A1C Calcium Level 9.4 8.7-10.4 mg/dL Magnesium Level 2.9 H 1.6-2.6 mg/dL Total Bilirubin < 0.2 L 0.2-1.0 mg/dL Aspartate Amino Transferase (AST) < 8 L 13-40 U/L Alanine Aminotransferase (ALT) < 9 7-40 U/L Alkaline Phosphatase 138 H 46-116 U/L C-Reactive Protein High Sensitivity 1.40 H <1.0 mg/dL B-Type Natriuretic Peptide 3043.06 0-100 pg/mL Total Protein 6.7 5.7-8.2 g/dL Albumin 4.2 3.2-4.8 g/dL Test 07/17/24 01:53 07/17/24 01:49 07/16/24 23:20 07/16/24 22:09 Range/Units POC Glucose 112 H 70-106 mg/dl Troponin I High Sensitivity 41 46 43 </=54 ng/L White Blood Count 6.7 4.4-10.8 10^3/uL Red Blood Count 3.59 L 4.5-5.90 10^6/uL Hemoglobin 10.9 L 13.5-17.5 g/dL Hematocrit 33.0 L 41.0-53.0 % Mean Corpuscular Volume 91.7 80.0-100.0 fL Mean Corpuscular Hemoglobin 30.3 28.0-32.0 pg Mean Corpuscular Hemoglobin Concent 33.0 32.0-36.0 g/dL Red Cell Distribution Width 17.5 H 11.8-14.3 % Platelet Count 221 140-450 10^3/uL Mean Platelet Volume 8.5 6.9-10.8 fL Neutrophils (%) (Auto) 81.4 H 37.0-80.0 % Lymphocytes (%) (Auto) 7.1 L 10.0-50.0 % Monocytes (%) (Auto) 8.7 0.0-12.0 % Eosinophils (%) (Auto) 2.0 0.0-7.0 % Basophils (%) (Auto) 0.8 0.0-2.0 % Neutrophils # (Auto) 5.4 1.6-8.6 10 ^3/uL Lymphocytes # (Auto) 0.5 0.4-5.4 10 ^3/uL Monocytes # (Auto) 0.6 0-1.3 10 ^3/uL Eosinophils # (Auto) 0.1 0-0.8 10 ^3/uL Basophils # (Auto) 0.1 0-0.2 10 ^3/uL Nucleated Red Blood Cells 0.1 % Sodium Level 135 L 136-145 mmol/L Potassium Level 6.2 *H 3.5-5.1 mmol/L Chloride Level 100 98-107 mmol/L Carbon Dioxide Level 21 20-31 mmol/L Anion Gap 14 5-15 Blood Urea Nitrogen 94 *H 9-23 mg/dL Creatinine 13.33 *H 0.700-1.30 mg/dL Glomerular Filtration Rate Calc 4 >90 mL/min BUN/Creatinine Ratio 7.1 L 10.0-20.0 Serum Glucose 109 H 74-106 mg/dL Calcium Level 9.6 8.7-10.4 mg/dL Microbiology Date/Time Source Procedure Growth Status 07/17/24 05:37 Nose MRSA Screen - Final Complete Assessment ESRD on HD Hyperkalemia Acute on chronic systolic CHF (EF: 35%) Fluid overload s/p AICD Chest pain with negative serial troponin DM, type II HTN Anemia of CKD hyperphosphatemia secondary hyperparathyroidism Metabolic acidosis Plan: s/p HD today , will repeat HD again tomorrow due to fluid overload low K diet fluid restriction continue Sevelamer with meals Continue Nifedipine Plan discussed with: Patient BHAVESH MCDONNELL MD Jul 17, 2024 18:15
[2024-07-17] MEDS: diphenhdrAMINE HCL 50 MG/1 ML VL IV PRN (20:08)
[2024-07-17] MEDS: ATORVASTATIN 20 MG TAB PO SCH (21:22)
[2024-07-17] MEDS: HEPARIN SODIUM (PORCINE) 5000 UNITS/ML 1ML VIAL SC SCH (21:24)
[2024-07-17] MEDS: LORazepam 0.5 MG TAB PO PRN (23:56)
[2024-07-18] VITALS (16 sets, daily range): BP systolic 118–164; BP diastolic 74–90; PULSE 90–101; RESP 14–19; TEMP 97.8–98.5; O2SAT 95–100
[2024-07-18] MEDS: INSULIN LANTUS (GLARGINE) 1 /0.01ml (100units/ml) SC ONE (05:47)
[2024-07-18] MEDS: hydrALAZINE HCL 20 MG/ML VL IV PRN (05:48)
[2024-07-18] MEDS: diphenhdrAMINE-ZINC ACETATE 1 APPLIC APPL TOP PRN (05:48)
[2024-07-18] MEDS: InsuLIN REG 1unit/0.01ml Soln (100units/ml) SC SCH (05:49)
[2024-07-18] MEDS: ACCU-CHEK COMFORT CURVE STRIP VI SCH (05:49)
[2024-07-18 07:59] LABS: Albumin 4.1 g/dL (3.2-4.8); Alkaline Phosphatase 104 U/L (46-116); Anion Gap 13 (5-15); BUN/Creatinine Ratio 6.3 (10.0-20.0); Calcium 9.8 mg/dL (8.7-10.4); Carbon Dioxide 24 mmol/L (20-31); Chloride 100 mmol/L (98-107); Glucose 88 mg/dL (74-106); Sodium 137 mmol/L (136-145); Total Protein 6.6 g/dL (5.7-8.2)
[2024-07-18 08:03] LABS: Alanine Aminotransferase < 9 U/L (7-40); Aspartate Aminotransferase 10 U/L (13-40); Bilirubin, Total 0.2 mg/dL (0.2-1.0); Blood Urea Nitrogen 59 mg/dL (9-23)
[2024-07-18 08:07] LABS: Potassium 6.1 mmol/L (3.5-5.1)
--- NOTE | 2024-07-18 08:40 | CONS ---
Pharmacy Clinical Information: From Heart Failure Fallout Report on CQM Application, GregoryIndio is 54 year old male with PMH of HTN, T2DM, HLD, ESRD, HFrEF, CAD s/p PCI, s/p AICD, anemia of CKD. His home medications for heart failure include metoprolol succinate and hydralazine. MRA, SGLT2i, ACEi/ARB/ARNi not recommended due to hyperkalemia, elevated sCr, and eGFR <10. DESTIN ROJO PHARMACIST Jul 18, 2024 08:40
[2024-07-18] MEDS: ASPirin 81 mg TAB PO SCH (10:00)
[2024-07-18] MEDS: NIFEdipine ER 30 MG TAB PO SCH (10:00)
[2024-07-18] MEDS ORDERED: AZITHROMYCIN 500MG/ 250ML 250 ML IV SCH (10:00)
[2024-07-18] MEDS: METOPROLOL SUCCINATE XL 50 MG TAB PO SCH (10:00)
[2024-07-18] MEDS: SEVELAMER 800 MG TAB PO SCH ×2 (12:41→18:00)
[2024-07-18] MEDS: SODIUM ZIRCONIUM CYCL 10 GM PAK PO ONE ×2 (12:59→22:29)
--- NOTE | 2024-07-18 15:33 | DVHPN2 ---
Progress Note - Dictate Date Seen: Jul 18, 2024 Has the PT tested + for MRSA If YES, has PT been informed?: No Medical Necessity Reason Pt with a Central, PICC or Fol: No Subjective s/p HD again today vital signs Vital Sign Date Time Temp Pulse Resp B/P (MAP) Pulse Ox O2 Delivery O2 Flow Rate FiO2 07/18/24 12:56 92 16 100 07/18/24 12:51 98.1 118/80 (93) 98.1 07/18/24 12:48 Room Air* 0 21 Total Intake and Output 07/17/24 07/17/24 07/18/24 15:00 23:00 07:00 Intake Total 100 ml 950 ml 400 ml Balance 100 ml 950 ml 400 ml medications Current Medications Medications Dose Ordered Sig/[place] Route Start Time Stop Time Status Last Admin Dose Admin Acetaminophen 650 mg Q6HP PRN PO 07/17/24 04:15 Acetaminophen/ Hydrocodone Bitart 1 tab Q4HP PRN PO 07/17/24 04:15 07/18/24 05:48 1 TAB Ondansetron HCl 4 mg Q4HP PRN IV 07/17/24 04:15 Nitroglycerin 0.4 mg Q5MINP PRN SL 07/17/24 04:15 Morphine Sulfate 2 mg Q30M PRN IV 07/17/24 04:15 Levalbuterol HCl 0.625 mg Q6HR NEB 07/17/24 06:00 07/18/24 12:48 0.625 MG Atorvastatin Calcium 40 mg HS PO 07/17/24 22:00 07/17/24 21:22 40 MG Metoprolol Succinate 50 mg DAILY PO 07/18/24 10:00 Nifedipine 90 mg DAILY PO 07/18/24 10:00 Sevelamer HCl 800 mg TIDWM PO 07/18/24 12:00 07/18/24 12:41 800 MG Aspirin 81 mg DAILY PO 07/18/24 10:00 Metronidazole 100 ml @ 100 mls/hr Q8HR IV 07/17/24 14:00 07/18/24 13:23 100 MLS/HR Ceftriaxone Sodium 50 ml @ 100 mls/hr DAILY@09 IV 07/17/24 09:00 07/18/24 08:48 100 MLS/HR Ipratropium [place] 0.5 mg Q6HR NEB 07/17/24 06:00 07/18/24 12:49 0.5 MG Zinc Acetate/ Diphenhydramine 1 applic Q6HP PRN TOP 07/17/24 14:00 07/18/24 12:55 1 APPLIC Heparin Sodium (Porcine) 5,000 units Q8HR SC 07/17/24 22:00 07/18/24 13:28 5,000 UNITS Diphenhydramine HCl 25 mg Q8HPRN PRN IV 07/17/24 19:00 07/18/24 10:39 25 MG Lorazepam 0.5 mg Q8HP PRN PO 07/17/24 22:30 07/18/24 08:47 0.5 MG Hydralazine HCl 10 mg Q6HP PRN IV 07/18/24 05:30 07/18/24 05:48 10 MG Diagnostic Test (Pha) 1 strip ACHS 07/18/24 07:00 07/18/24 11:30 1 STRIP Insulin Human Regular ACHS SC 07/18/24 07:00 Dextrose 50 ml UD PRN IV 07/18/24 05:30 Insulin Glargine 10 units HS SC 07/18/24 22:00 laboratory and microbiology Laboratory Tests 07/18/24 06:54 07/17/24 04:30 Test 07/18/24 06:54 Range/Units Serum Glucose 88 74-106 mg/dL Assessment/Plan ESRD on HD Hyperkalemia Acute on chronic systolic CHF (EF: 35%) Fluid overload s/p AICD Chest pain with negative serial troponin DM, type II HTN Anemia of CKD hyperphosphatemia secondary hyperparathyroidism Metabolic acidosis Plan: s/p HD Wednesday and Wednesday low K diet fluid restriction continue Sevelamer with meals Continue Nifedipine Plan discussed with: Patient, Other BHAVESH MCDONNELL MD Jul 18, 2024 15:32
--- NOTE | 2024-07-18 15:52 | DVHPN2 ---
Progress Note - Dictate Date Seen: Jul 18, 2024 Has the PT tested + for MRSA If YES, has PT been informed?: No Medical Necessity Reason Pt with a Central, PICC or Fol: No Subjective PT WITH SS COMPLEX OF BUTT SOB CHEST PAIN PMH; HFrEF EF <35% S/P BiV AICD NOW WITH CHEST PAIN TROPONIN NEGATIVE ECG NO CHANGED PT WITH HYPERKALEMIA SEVERE ANEMIA ESRD ON HD DIABETES NEPHROPATHY NEUROPATHY VASCULOPATHY NOW WITH SEVERE HYPERKALEMIA AND HYPOGLYCEMIA CXR C/W INTERSTITIAL LUNG DISEASE vital signs Vital Sign Date Time Temp Pulse Resp B/P (MAP) Pulse Ox O2 Delivery O2 Flow Rate FiO2 07/18/24 12:56 92 16 100 07/18/24 12:51 98.1 118/80 (93) 98.1 07/18/24 12:48 Room Air* 0 21 Total Intake and Output 07/17/24 07/17/24 07/18/24 15:00 23:00 07:00 Intake Total 100 ml 950 ml 400 ml Balance 100 ml 950 ml 400 ml medications Current Medications Medications Dose Ordered Sig/[place] Route Start Time Stop Time Status Last Admin Dose Admin Acetaminophen 650 mg Q6HP PRN PO 07/17/24 04:15 Acetaminophen/ Hydrocodone Bitart 1 tab Q4HP PRN PO 07/17/24 04:15 07/18/24 05:48 1 TAB Ondansetron HCl 4 mg Q4HP PRN IV 07/17/24 04:15 Nitroglycerin 0.4 mg Q5MINP PRN SL 07/17/24 04:15 Morphine Sulfate 2 mg Q30M PRN IV 07/17/24 04:15 Levalbuterol HCl 0.625 mg Q6HR NEB 07/17/24 06:00 07/18/24 12:48 0.625 MG Atorvastatin Calcium 40 mg HS PO 07/17/24 22:00 07/17/24 21:22 40 MG Metoprolol Succinate 50 mg DAILY PO 07/18/24 10:00 Nifedipine 90 mg DAILY PO 07/18/24 10:00 Sevelamer HCl 800 mg TIDWM PO 07/18/24 12:00 07/18/24 12:41 800 MG Aspirin 81 mg DAILY PO 07/18/24 10:00 Metronidazole 100 ml @ 100 mls/hr Q8HR IV 07/17/24 14:00 07/18/24 13:23 100 MLS/HR Ceftriaxone Sodium 50 ml @ 100 mls/hr DAILY@09 IV 07/17/24 09:00 07/18/24 08:48 100 MLS/HR Ipratropium [place] 0.5 mg Q6HR NEB 07/17/24 06:00 07/18/24 12:49 0.5 MG Zinc Acetate/ Diphenhydramine 1 applic Q6HP PRN TOP 07/17/24 14:00 07/18/24 12:55 1 APPLIC Heparin Sodium (Porcine) 5,000 units Q8HR SC 07/17/24 22:00 07/18/24 13:28 5,000 UNITS Diphenhydramine HCl 25 mg Q8HPRN PRN IV 07/17/24 19:00 07/18/24 10:39 25 MG Lorazepam 0.5 mg Q8HP PRN PO 07/17/24 22:30 07/18/24 08:47 0.5 MG Hydralazine HCl 10 mg Q6HP PRN IV 07/18/24 05:30 07/18/24 05:48 10 MG Diagnostic Test (Pha) 1 strip ACHS 07/18/24 07:00 07/18/24 11:30 1 STRIP Insulin Human Regular ACHS SC 07/18/24 07:00 Dextrose 50 ml UD PRN IV 07/18/24 05:30 Insulin Glargine 10 units HS SC 07/18/24 22:00 laboratory and microbiology Laboratory Tests 07/18/24 06:54 07/17/24 04:30 Test 07/18/24 06:54 Range/Units Serum Glucose 88 74-106 mg/dL Problem List SS COMPLEX OF BUTT SOB CHEST PAIN PMH; HFrEF EF <35% S/P BiV AICD NOW WITH CHEST PAIN TROPONIN NEGATIVE ECG NO CHANGED PT WITH HYPERKALEMIA SEVERE ANEMIA ESRD ON HD DIABETES NEPHROPATHY NEUROPATHY VASCULOPATHY NOW WITH SEVERE HYPERKALEMIA AND HYPOGLYCEMIA CXR C/W INTERSTITIAL LUNG DISEASE STILL WITH HYPERKALEMIA BNP IN AM Assessment/Plan CORRECT HYPERKALEMIA DIALYSIS CORRECT VOLUME OVERLOAD AND HYPERKALEMIA Plan discussed with: Patient LYUDMILA JORDAN MD Jul 18, 2024 15:52
[2024-07-18] MEDS: HYDROcodone-ACET 10/325MG TAB PO ONE (18:09)
--- NOTE | 2024-07-18 19:41 | DVHPNRES ---
Progress Note Date Seen: Jul 18, 2024 Resident Creating Document: TIA VICENTE RESIDENT Has the PT tested + for MRSA If YES, has PT been informed?: No Medical Necessity Reason Pt with a Central, PICC or Fol: No Subjective Review of Systems Patient examined at bedside, he reports no acute complaints other than the back pain for which the [place] was decreased until 10. Patient was started on sevelamer Patient's potassium was corrected with Lokelma, we will monitor potassium level closely. Radiology was consulted, for an elbow arthrocentesis to rule out septic arthritis Patient reports: No new complaints Changes from previous H/P or p: No Changes Review of Systems: HEENT:Normal, CVS:Normal, RESPIRATORY:Normal, GI:Normal, :Normal, MSK:Normal, NEURO:Normal Objective vital signs Vital Sign Date Time Temp Pulse Resp B/P (MAP) Pulse Ox O2 Delivery O2 Flow Rate FiO2 07/18/24 17:00 97.8 93 17 145/74 (97) 97 97.8 07/18/24 12:48 Room Air* 0 21 Total Intake and Output 07/17/24 07/17/24 07/18/24 15:00 23:00 07:00 Intake Total 100 ml 950 ml 400 ml Balance 100 ml 950 ml 400 ml medications Current Medications Medications Dose Ordered Sig/[place] Route Start Time Stop Time Status Last Admin Dose Admin Acetaminophen 650 mg Q6HP PRN PO 07/17/24 04:15 Ondansetron HCl 4 mg Q4HP PRN IV 07/17/24 04:15 Nitroglycerin 0.4 mg Q5MINP PRN SL 07/17/24 04:15 Morphine Sulfate 2 mg Q30M PRN IV 07/17/24 04:15 Levalbuterol HCl 0.625 mg Q6HR NEB 07/17/24 06:00 07/18/24 18:27 0.625 MG Atorvastatin Calcium 40 mg HS PO 07/17/24 22:00 07/17/24 21:22 40 MG Metoprolol Succinate 50 mg DAILY PO 07/18/24 10:00 Nifedipine 90 mg DAILY PO 07/18/24 10:00 Aspirin 81 mg DAILY PO 07/18/24 10:00 Metronidazole 100 ml @ 100 mls/hr Q8HR IV 07/17/24 14:00 07/18/24 13:23 100 MLS/HR Ceftriaxone Sodium 50 ml @ 100 mls/hr DAILY@09 IV 07/17/24 09:00 07/18/24 08:48 100 MLS/HR Ipratropium [place] 0.5 mg Q6HR NEB 07/17/24 06:00 07/18/24 18:27 0.5 MG Zinc Acetate/ Diphenhydramine 1 applic Q6HP PRN TOP 07/17/24 14:00 07/18/24 12:55 1 APPLIC Heparin Sodium (Porcine) 5,000 units Q8HR SC 07/17/24 22:00 07/18/24 13:28 5,000 UNITS Diphenhydramine HCl 25 mg Q8HPRN PRN IV 07/17/24 19:00 07/18/24 10:39 25 MG Lorazepam 0.5 mg Q8HP PRN PO 07/17/24 22:30 07/18/24 08:47 0.5 MG Hydralazine HCl 10 mg Q6HP PRN IV 07/18/24 05:30 07/18/24 05:48 10 MG Diagnostic Test (Pha) 1 strip ACHS 07/18/24 07:00 07/18/24 17:00 1 STRIP Insulin Human Regular ACHS SC 07/18/24 07:00 Dextrose 50 ml UD PRN IV 07/18/24 05:30 Insulin Glargine 10 units HS SC 07/18/24 22:00 Sevelamer HCl 2,400 mg TIDWM PO 07/18/24 16:00 07/18/24 19:09 2,400 MG Acetaminophen/ Hydrocodone Bitart 1 tab Q6HP PRN PO 07/18/24 16:00 Examination: GENERAL:Normal, HEENT:Normal, NECK:Normal, LUNGS:Normal, CVS:Normal, ABDOMEN:Normal, MSK:Abnormal, SKIN:Abnormal, :Abnormal laboratory and microbiology Laboratory Tests 07/18/24 06:54 07/17/24 04:30 Test 07/18/24 06:54 Range/Units Serum Glucose 88 74-106 mg/dL Microbiology Date/Time Source Procedure Growth Status 07/17/24 05:37 Nose MRSA Screen - Final Complete Problem List/Assessment/Plan Problem List/Assessment/Plan #Non cardiac chest pain , likely multifactorial (pleuritic + MSK + possible uremic pericarditis) #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 , BUN improving - Pain reproducible with palpation and inspiration - Troponins normal, ECG without ischemia - IVC not collapsed , not hypovolemic # rule out septic arthritis -Radiology was consulted for arthrocentesis from the elbow to rule out septic arthritis #PossibleAcute on chronic Heart failure with reduced EF (EF 30%) exacerbation #Known CAD with pacemaker - Monitor volume status post-dialysis - Diuresis ineffective due to anuria #ESRD with missed dialysis #hemodialysis today -Elevated BUN/Cr, potassium managed -Uremic pruritus, excoriations on LE -sevelamer #Hyperkalemia resolved - Lokelma once - recheck after HD #Generalized anxiety disorder -Treated with Ativan 0.5 (home dose)1x for HD #Possible parasitic skin infection - Patient-reported; etiology unclear case discussed with goals of care:29 min code status: full code Plan discussed with: Patient My Orders My Orders Orders - TIA VICENTE RESIDENT Procedure Category Date Status Time Hydrocodone-Acet PHA 07/18/24 In Process 10/325mg Tab ([place] 16:00 TIA VICENTE RESIDENT Jul 18, 2024 19:41
[2024-07-18] MEDS: INSULIN LANTUS (GLARGINE) 1 /0.01ml (100units/ml) SC SCH (21:02)
[2024-07-18] MEDS: ALBUTEROL SULF 2.5 MG/0.5ML(0.5%) NEB SOLN NEB ONE (22:10)
[2024-07-18] MEDS: FUROSEMIDE 20 MG/2 ML VIAL IV ONE (22:28)
[2024-07-18] MEDS: DEXTROSE (50%) 50ML SYRG IV ONE (22:30)
[2024-07-18] MEDS: InsuLIN REG 1unit/0.01ml Soln (100units/ml) IV ONE (22:41)
[2024-07-18] MEDS: CALCIUM GLUC 1,000mg/50ml-NS 50 ML IV ONE (22:51)
[2024-07-19] VITALS (17 sets, daily range): BP systolic 104–176; BP diastolic 54–92; PULSE 70–106; RESP 16–19; TEMP 97.8–98.6; O2SAT 90–100
[2024-07-19] MEDS: HYDROcodone-ACET 10/325MG TAB PO PRN (00:58)
[2024-07-19] MEDS: DOCUSATE SOD 100 MG CAP PO ONE (00:58)
[2024-07-19 06:42] LABS: Alkaline Phosphatase 99 U/L (46-116); Anion Gap 11 (5-15); BUN/Creatinine Ratio 6.9 (10.0-20.0); Calcium 9.9 mg/dL (8.7-10.4); Carbon Dioxide 27 mmol/L (20-31); Chloride 100 mmol/L (98-107); Sodium 138 mmol/L (136-145); Total Protein 6.5 g/dL (5.7-8.2)
[2024-07-19 06:46] LABS: Glucose 67 mg/dL (74-106); Potassium 5.5 mmol/L (3.5-5.1)
[2024-07-19 06:47] LABS: Alanine Aminotransferase < 9 U/L (7-40); Aspartate Aminotransferase 10 U/L (13-40); Bilirubin, Total < 0.2 mg/dL (0.2-1.0); Blood Urea Nitrogen 53 mg/dL (9-23)
[2024-07-19] MEDS: MORPHINE SULFATE INJ 2 MG/ml SYRG IV PRN (08:28)
[2024-07-19] MEDS: SODIUM ZIRCONIUM CYCL 10 GM PAK PO ONE (08:28)
--- NOTE | 2024-07-19 08:41 | DVHPN2 ---
Progress Note - Dictate Date Seen: Jul 19, 2024 Has the PT tested + for MRSA If YES, has PT been informed?: No Medical Necessity Reason Pt with a Central, PICC or Fol: No Subjective PT WITH SS COMPLEX OF BUTT SOB CHEST PAIN PMH; HFrEF EF <35% S/P BiV AICD NOW WITH CHEST PAIN TROPONIN NEGATIVE ECG NO CHANGED PT WITH HYPERKALEMIA SEVERE ANEMIA ESRD ON HD DIABETES NEPHROPATHY NEUROPATHY VASCULOPATHY NOW WITH SEVERE HYPERKALEMIA AND HYPOGLYCEMIA CXR C/W INTERSTITIAL LUNG DISEASE vital signs Vital Sign Date Time Temp Pulse Resp B/P (MAP) Pulse Ox O2 Delivery O2 Flow Rate FiO2 07/19/24 08:28 106 16 189/105 07/19/24 07:27 97 Room Air 0.0 07/19/24 07:27 21 07/19/24 05:00 98.2 98.2 Total Intake and Output 07/18/24 07/18/24 07/19/24 15:00 23:00 07:00 Intake Total 150 ml 375 ml 400 ml Balance 150 ml 375 ml 400 ml medications Current Medications Medications Dose Ordered Sig/[place] Route Start Time Stop Time Status Last Admin Dose Admin Acetaminophen 650 mg Q6HP PRN PO 07/17/24 04:15 Ondansetron HCl 4 mg Q4HP PRN IV 07/17/24 04:15 Nitroglycerin 0.4 mg Q5MINP PRN SL 07/17/24 04:15 Morphine Sulfate 2 mg Q30M PRN IV 07/17/24 04:15 Levalbuterol HCl 0.625 mg Q6HR NEB 07/17/24 06:00 07/19/24 07:26 0.625 MG Atorvastatin Calcium 40 mg HS PO 07/17/24 22:00 07/18/24 21:04 40 MG Metoprolol Succinate 50 mg DAILY PO 07/18/24 10:00 Nifedipine 90 mg DAILY PO 07/18/24 10:00 Aspirin 81 mg DAILY PO 07/18/24 10:00 07/19/24 08:28 81 MG Metronidazole 100 ml @ 100 mls/hr Q8HR IV 07/17/24 14:00 07/19/24 06:46 100 MLS/HR Ceftriaxone Sodium 50 ml @ 100 mls/hr DAILY@09 IV 07/17/24 09:00 07/19/24 08:27 100 MLS/HR Ipratropium [place] 0.5 mg Q6HR NEB 07/17/24 06:00 07/19/24 07:27 0.5 MG Zinc Acetate/ Diphenhydramine 1 applic Q6HP PRN TOP 07/17/24 14:00 07/18/24 12:55 1 APPLIC Heparin Sodium (Porcine) 5,000 units Q8HR SC 07/17/24 22:00 07/19/24 06:45 5,000 UNITS Diphenhydramine HCl 25 mg Q8HPRN PRN IV 07/17/24 19:00 07/18/24 19:53 25 MG Lorazepam 0.5 mg Q8HP PRN PO 07/17/24 22:30 07/18/24 22:57 0.5 MG Hydralazine HCl 10 mg Q6HP PRN IV 07/18/24 05:30 07/19/24 07:49 10 MG Diagnostic Test (Pha) 1 strip ACHS 07/18/24 07:00 07/19/24 06:51 1 STRIP Insulin Human Regular ACHS SC 07/18/24 07:00 07/18/24 21:01 2 UNITS Dextrose 50 ml UD PRN IV 07/18/24 05:30 Insulin Glargine 10 units HS SC 07/18/24 22:00 07/18/24 21:02 10 UNITS Sevelamer HCl 2,400 mg TIDWM PO 07/18/24 16:00 07/19/24 08:27 2,400 MG Acetaminophen/ Hydrocodone Bitart 1 tab Q6HP PRN PO 07/18/24 16:00 Hold 07/19/24 06:51 1 TAB Morphine Sulfate 1 mg Q3HP PRN IV 07/19/24 08:15 07/19/24 08:28 1 MG laboratory and microbiology Laboratory Tests 07/19/24 06:06 07/17/24 04:30 Test 07/19/24 06:06 Range/Units Serum Glucose 67 L 74-106 mg/dL Problem List SS COMPLEX OF BUTT SOB CHEST PAIN PMH; HFrEF EF <35% S/P BiV AICD NOW WITH CHEST PAIN TROPONIN NEGATIVE ECG NO CHANGED PT WITH HYPERKALEMIA SEVERE ANEMIA ESRD ON HD DIABETES NEPHROPATHY NEUROPATHY VASCULOPATHY NOW WITH SEVERE HYPERKALEMIA AND HYPOGLYCEMIA CXR C/W INTERSTITIAL LUNG DISEASE STILL WITH HYPERKALEMIA BNP IN AM Assessment/Plan CORRECT HYPERKALEMIA DIALYSIS CORRECT VOLUME OVERLOAD AND HYPERKALEMIA K+ STILL 5.5 DAILY LOKELMA Plan discussed with: Patient LYUDMILA JORDAN MD Jul 19, 2024 08:40
--- NOTE | 2024-07-19 10:38 | ECG ---
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
[2024-07-19] MEDS: LEVALBUTEROL HCL 1.25 MG/3 ML NEB ONE (11:36)
[2024-07-19] MEDS: SODIUM ZIRCONIUM CYCL 10 GM PAK PO SCH (15:34)
--- NOTE | 2024-07-19 17:37 | DVHPN2 ---
Progress Note - Dictate Date Seen: Jul 19, 2024 Has the PT tested + for MRSA If YES, has PT been informed?: No Medical Necessity Reason Pt with a Central, PICC or Fol: No Subjective s/p HD again today vital signs Vital Sign Date Time Temp Pulse Resp B/P (MAP) Pulse Ox O2 Delivery O2 Flow Rate FiO2 07/19/24 16:21 83 19 146/86 07/19/24 13:00 98.6 99 98.6 07/19/24 11:36 Room Air 0.0 07/19/24 11:36 21 Total Intake and Output 07/18/24 07/18/24 07/19/24 15:00 23:00 07:00 Intake Total 150 ml 375 ml 400 ml Balance 150 ml 375 ml 400 ml medications Current Medications Medications Dose Ordered Sig/Caroline Route Start Time Stop Time Status Last Admin Dose Admin Acetaminophen 650 mg Q6HP PRN PO 07/17/24 04:15 Ondansetron HCl 4 mg Q4HP PRN IV 07/17/24 04:15 Nitroglycerin 0.4 mg Q5MINP PRN SL 07/17/24 04:15 Morphine Sulfate 2 mg Q30M PRN IV 07/17/24 04:15 Levalbuterol HCl 0.625 mg Q6HR NEB 07/17/24 06:00 07/19/24 07:26 0.625 MG Atorvastatin Calcium 40 mg HS PO 07/17/24 22:00 07/18/24 21:04 40 MG Metoprolol Succinate 50 mg DAILY PO 07/18/24 10:00 07/19/24 10:53 50 MG Nifedipine 90 mg DAILY PO 07/18/24 10:00 07/19/24 10:54 90 MG Aspirin 81 mg DAILY PO 07/18/24 10:00 07/19/24 08:28 81 MG Metronidazole 100 ml @ 100 mls/hr Q8HR IV 07/17/24 14:00 07/19/24 15:12 100 MLS/HR Ceftriaxone Sodium 50 ml @ 100 mls/hr DAILY@09 IV 07/17/24 09:00 07/19/24 08:27 100 MLS/HR Ipratropium [place] 0.5 mg Q6HR NEB 07/17/24 06:00 07/19/24 11:34 0.5 MG Zinc Acetate/ Diphenhydramine 1 applic Q6HP PRN TOP 07/17/24 14:00 07/19/24 15:12 1 APPLIC Heparin Sodium (Porcine) 5,000 units Q8HR SC 07/17/24 22:00 07/19/24 15:14 5,000 UNITS Diphenhydramine HCl 25 mg Q8HPRN PRN IV 07/17/24 19:00 07/18/24 19:53 25 MG Lorazepam 0.5 mg Q8HP PRN PO 07/17/24 22:30 07/19/24 10:53 0.5 MG Hydralazine HCl 10 mg Q6HP PRN IV 07/18/24 05:30 07/19/24 14:03 10 MG Diagnostic Test (Pha) 1 strip ACHS 07/18/24 07:00 07/19/24 17:09 1 STRIP Insulin Human Regular ACHS SC 07/18/24 07:00 07/18/24 21:01 2 UNITS Dextrose 50 ml UD PRN IV 07/18/24 05:30 Insulin Glargine 10 units HS SC 07/18/24 22:00 07/18/24 21:02 10 UNITS Sevelamer HCl 2,400 mg TIDWM PO 07/18/24 16:00 07/19/24 12:07 2,400 MG Acetaminophen/ Hydrocodone Bitart 1 tab Q6HP PRN PO 07/18/24 16:00 Hold 07/19/24 06:51 1 TAB Morphine Sulfate 1 mg Q3HP PRN IV 07/19/24 08:15 07/19/24 15:51 1 MG Zirconium Oxide 10 gm Q48H PO 07/19/24 16:00 07/19/24 15:34 10 GM objective gen: NAD, AAOx3 HEENT: NC,AT Cardiac: RRR, no murmur Abd:soft, no tenderness Ext: no edema Neruo: no focal defictis laboratory and microbiology Laboratory Tests 07/19/24 06:06 07/17/24 04:30 Test 07/19/24 06:06 Range/Units Serum Glucose 67 L 74-106 mg/dL Assessment/Plan ESRD on HD Hyperkalemia Acute on chronic systolic CHF (EF: 35%) Fluid overload s/p AICD Chest pain with negative serial troponin DM, type II HTN Anemia of CKD hyperphosphatemia secondary hyperparathyroidism Metabolic acidosis Plan: Next HD on s/p HD Wednesday and Wednesday Lokelma 10 g PO x1 low K diet fluid restriction Increased Sevelamer 3 tabs TID with meals Continue Nifedipine Plan discussed with: Patient BHAVESH MCDONNELL MD Jul 19, 2024 17:37
[2024-07-19] MEDS: LACTULOSE 20Gm/30ML SOLN PO ONE (18:09)
--- NOTE | 2024-07-19 23:18 | DVHPNRES ---
Progress Note Date Seen: Jul 19, 2024 Resident Creating Document: TIA VICENTE RESIDENT Has the PT tested + for MRSA If YES, has PT been informed?: No Medical Necessity Reason Pt with a Central, PICC or Fol: No Subjective Review of Systems Patient was examined at bedside, he reports pain in his lower back for which he was started on [place] 10/325 and morphine p.r.n. for severe pain. Order than that potassium was found to be increased for which he received Lokelma 10 mg p.o.. We will monitor closely potassium levels Patient was scheduled for hemodialysis tomorrow. Patient reports: No new complaints Changes from previous H/P or p: No Changes Objective vital signs Vital Sign Date Time Temp Pulse Resp B/P (MAP) Pulse Ox O2 Delivery O2 Flow Rate FiO2 07/19/24 21:00 97.9 89 19 112/68 (83) 90 97.9 07/19/24 18:50 Room Air* 0 21 Total Intake and Output 07/18/24 07/18/24 07/19/24 15:00 23:00 07:00 Intake Total 150 ml 375 ml 400 ml Balance 150 ml 375 ml 400 ml medications Current Medications Medications Dose Ordered Sig/Caroline Route Start Time Stop Time Status Last Admin Dose Admin Acetaminophen 650 mg Q6HP PRN PO 07/17/24 04:15 Ondansetron HCl 4 mg Q4HP PRN IV 07/17/24 04:15 Nitroglycerin 0.4 mg Q5MINP PRN SL 07/17/24 04:15 Morphine Sulfate 2 mg Q30M PRN IV 07/17/24 04:15 Levalbuterol HCl 0.625 mg Q6HR NEB 07/17/24 06:00 07/19/24 19:02 0.625 MG Atorvastatin Calcium 40 mg HS PO 07/17/24 22:00 07/18/24 21:04 40 MG Metoprolol Succinate 50 mg DAILY PO 07/18/24 10:00 07/19/24 10:53 50 MG Nifedipine 90 mg DAILY PO 07/18/24 10:00 07/19/24 10:54 90 MG Aspirin 81 mg DAILY PO 07/18/24 10:00 07/19/24 08:28 81 MG Metronidazole 100 ml @ 100 mls/hr Q8HR IV 07/17/24 14:00 07/19/24 21:52 100 MLS/HR Ceftriaxone Sodium 50 ml @ 100 mls/hr DAILY@09 IV 07/17/24 09:00 07/19/24 08:27 100 MLS/HR Ipratropium [place] 0.5 mg Q6HR NEB 07/17/24 06:00 07/19/24 19:02 0.5 MG Zinc Acetate/ Diphenhydramine 1 applic Q6HP PRN TOP 07/17/24 14:00 07/19/24 15:12 1 APPLIC Heparin Sodium (Porcine) 5,000 units Q8HR SC 07/17/24 22:00 07/19/24 22:18 5,000 UNITS Diphenhydramine HCl 25 mg Q8HPRN PRN IV 07/17/24 19:00 07/18/24 19:53 25 MG Lorazepam 0.5 mg Q8HP PRN PO 07/17/24 22:30 07/19/24 10:53 0.5 MG Hydralazine HCl 10 mg Q6HP PRN IV 07/18/24 05:30 07/19/24 18:57 10 MG Diagnostic Test (Pha) 1 strip ACHS 07/18/24 07:00 07/19/24 17:09 1 STRIP Insulin Human Regular ACHS SC 07/18/24 07:00 07/18/24 21:01 2 UNITS Dextrose 50 ml UD PRN IV 07/18/24 05:30 Insulin Glargine 10 units HS SC 07/18/24 22:00 07/18/24 21:02 10 UNITS Sevelamer HCl 2,400 mg TIDWM PO 07/18/24 16:00 07/19/24 18:09 2,400 MG Acetaminophen/ Hydrocodone Bitart 1 tab Q6HP PRN PO 07/18/24 16:00 Hold 07/19/24 06:51 1 TAB Morphine Sulfate 1 mg Q3HP PRN IV 07/19/24 08:15 07/19/24 15:51 1 MG Zirconium Oxide 10 gm Q48H PO 07/19/24 16:00 07/19/24 15:34 10 GM Examination: GENERAL:Normal, HEENT:Normal, NECK:Normal, LUNGS:Normal, CVS:Normal, ABDOMEN:Normal, MSK:Abnormal, SKIN:Abnormal, NEURO:Normal, :Normal laboratory and microbiology Laboratory Tests 07/19/24 18:37 07/19/24 06:06 07/17/24 04:30 Test 07/19/24 06:06 Range/Units Serum Glucose 67 L 74-106 mg/dL Microbiology Date/Time Source Procedure Growth Status 07/17/24 05:37 Nose MRSA Screen - Final Complete Problem List/Assessment/Plan Problem List/Assessment/Plan #Non cardiac chest pain , likely multifactorial (pleuritic + MSK + possible uremic pericarditis) #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 -[place] # Constipation -lactulose p.r.n. #PossibleAcute on chronic Heart failure with reduced EF (EF 30%) exacerbation #Known CAD with pacemaker - Monitor volume status post-dialysis - Diuresis ineffective due to anuria #ESRD with missed dialysis #hemodialysis today -Elevated BUN/Cr, potassium managed -Uremic pruritus, excoriations on LE -sevelamer #Hyperkalemia resolved - Lokelma once - recheck after HD #Generalized anxiety disorder -Treated with Ativan 0.5 (home dose)1x for HD #Possible parasitic skin infection - Patient-reported; etiology unclear case discussed with goals of care:29 min code status: full code Plan discussed with: Patient My Orders My Orders Orders - TIA VICENTE Procedure Category Date Status Time Morphine Sulfate PHA 07/19/24 In Process Injection 08:15 Sodium Zirconium PHA 07/19/24 Transmitted Cyclosilicate 23:15 TIA VICENTE RESIDENT Jul 19, 2024 23:18
[2024-07-20] VITALS (13 sets, daily range): BP systolic 150–157; BP diastolic 83–95; PULSE 77–91; RESP 17–19; TEMP 98–98.4; O2SAT 90–100
[2024-07-20] MEDS: SODIUM ZIRCONIUM CYCL 10 GM PAK PO ONE (00:05)
[2024-07-20] MEDS: LACTULOSE 20Gm/30ML SOLN PO ONE (00:23)
--- NOTE | 2024-07-20 06:20 | DVHPN2 ---
Progress Note - Dictate Date Seen: Jul 20, 2024 Has the PT tested + for MRSA If YES, has PT been informed?: No Medical Necessity Reason Pt with a Central, PICC or Fol: No Subjective no new symptoms complains of fluid overload vital signs Vital Sign Date Time Temp Pulse Resp B/P (MAP) Pulse Ox O2 Delivery O2 Flow Rate FiO2 07/20/24 05:00 98.0 80 18 151/86 (107) 96 98.0 07/19/24 20:00 Nasal Cannula* 2 28 Total Intake and Output 07/19/24 07/19/24 07/20/24 15:00 23:00 07:00 Intake Total 150 ml 2300 ml 120 ml Balance 150 ml 2300 ml 120 ml medications Current Medications Medications Dose Ordered Sig/Caroline Route Start Time Stop Time Status Last Admin Dose Admin Acetaminophen 650 mg Q6HP PRN PO 07/17/24 04:15 Ondansetron HCl 4 mg Q4HP PRN IV 07/17/24 04:15 Nitroglycerin 0.4 mg Q5MINP PRN SL 07/17/24 04:15 Morphine Sulfate 2 mg Q30M PRN IV 07/17/24 04:15 Levalbuterol HCl 0.625 mg Q6HR NEB 07/17/24 06:00 07/20/24 00:04 0.625 MG Atorvastatin Calcium 40 mg HS PO 07/17/24 22:00 07/20/24 00:24 40 MG Metoprolol Succinate 50 mg DAILY PO 07/18/24 10:00 07/19/24 10:53 50 MG Nifedipine 90 mg DAILY PO 07/18/24 10:00 07/19/24 10:54 90 MG Aspirin 81 mg DAILY PO 07/18/24 10:00 07/19/24 08:28 81 MG Metronidazole 100 ml @ 100 mls/hr Q8HR IV 07/17/24 14:00 07/20/24 05:20 100 MLS/HR Ceftriaxone Sodium 50 ml @ 100 mls/hr DAILY@09 IV 07/17/24 09:00 07/19/24 08:27 100 MLS/HR Ipratropium [place] 0.5 mg Q6HR NEB 07/17/24 06:00 07/20/24 00:02 0.5 MG Zinc Acetate/ Diphenhydramine 1 applic Q6HP PRN TOP 07/17/24 14:00 07/19/24 15:12 1 APPLIC Heparin Sodium (Porcine) 5,000 units Q8HR SC 07/17/24 22:00 07/19/24 22:18 5,000 UNITS Diphenhydramine HCl 25 mg Q8HPRN PRN IV 07/17/24 19:00 07/18/24 19:53 25 MG Lorazepam 0.5 mg Q8HP PRN PO 07/17/24 22:30 07/19/24 10:53 0.5 MG Hydralazine HCl 10 mg Q6HP PRN IV 07/18/24 05:30 07/20/24 01:40 10 MG Diagnostic Test (Pha) 1 strip ACHS 07/18/24 07:00 07/19/24 22:00 1 STRIP Insulin Human Regular ACHS SC 07/18/24 07:00 07/18/24 21:01 2 UNITS Dextrose 50 ml UD PRN IV 07/18/24 05:30 Insulin Glargine 10 units HS SC 07/18/24 22:00 07/18/24 21:02 10 UNITS Sevelamer HCl 2,400 mg TIDWM PO 07/18/24 16:00 07/19/24 18:09 2,400 MG Acetaminophen/ Hydrocodone Bitart 1 tab Q6HP PRN PO 07/18/24 16:00 Hold 07/19/24 06:51 1 TAB Morphine Sulfate 1 mg Q3HP PRN IV 07/19/24 08:15 07/19/24 15:51 1 MG Zirconium Oxide 10 gm Q48H PO 07/19/24 16:00 07/19/24 15:34 10 GM objective gen: NAD, AAOx3 HEENT: NC,AT Cardiac: RRR, no murmur Abd:soft, no tenderness Ext: no edema Neruo: no focal defictis laboratory and microbiology Laboratory Tests 07/19/24 18:37 07/19/24 06:06 07/17/24 04:30 Test 07/19/24 06:06 Range/Units Serum Glucose 67 L 74-106 mg/dL Assessment/Plan ESRD on HD Hyperkalemia Acute on chronic systolic CHF (EF: 35%) Fluid overload s/p AICD Chest pain with negative serial troponin DM, type II HTN Anemia of CKD hyperphosphatemia secondary hyperparathyroidism Metabolic acidosis Plan: Scheduled for HD today Lokelma 10 g PO x1 low K diet fluid restriction Continue Sevelamer 3 tabs TID with meals Continue Nifedipine Plan discussed with: Patient BHAVESH MCDONNELL MD Jul 20, 2024 06:20
[2024-07-20] MEDS ORDERED: SODIUM CHL 0.9% 1000 ML BAG XX ONE (07:00)
--- NOTE | 2024-07-20 07:59 | DVHPN2 ---
Progress Note - Dictate Date Seen: Jul 20, 2024 Has the PT tested + for MRSA If YES, has PT been informed?: No Medical Necessity Reason Pt with a Central, PICC or Fol: No Subjective PT WITH SS COMPLEX OF BUTT SOB CHEST PAIN PMH; HFrEF EF <35% S/P BiV AICD NOW WITH CHEST PAIN TROPONIN NEGATIVE ECG NO CHANGED PT WITH HYPERKALEMIA SEVERE ANEMIA ESRD ON HD DIABETES NEPHROPATHY NEUROPATHY VASCULOPATHY NOW WITH SEVERE HYPERKALEMIA AND HYPOGLYCEMIA CXR C/W INTERSTITIAL LUNG DISEASE vital signs Vital Sign Date Time Temp Pulse Resp B/P (MAP) Pulse Ox O2 Delivery O2 Flow Rate FiO2 07/20/24 06:49 86 18 100 07/20/24 06:43 Room Air* 0 21 07/20/24 05:00 98.0 151/86 (107) 98.0 Total Intake and Output 07/19/24 07/19/24 07/20/24 15:00 23:00 07:00 Intake Total 150 ml 2300 ml 120 ml Balance 150 ml 2300 ml 120 ml medications Current Medications Medications Dose Ordered Sig/[place]oline Route Start Time Stop Time Status Last Admin Dose Admin Acetaminophen 650 mg Q6HP PRN PO 07/17/24 04:15 Ondansetron HCl 4 mg Q4HP PRN IV 07/17/24 04:15 Nitroglycerin 0.4 mg Q5MINP PRN SL 07/17/24 04:15 Morphine Sulfate 2 mg Q30M PRN IV 07/17/24 04:15 Levalbuterol HCl 0.625 mg Q6HR NEB 07/17/24 06:00 07/20/24 06:43 0.625 MG Atorvastatin Calcium 40 mg HS PO 07/17/24 22:00 07/20/24 00:24 40 MG Metoprolol Succinate 50 mg DAILY PO 07/18/24 10:00 07/19/24 10:53 50 MG Nifedipine 90 mg DAILY PO 07/18/24 10:00 07/19/24 10:54 90 MG Aspirin 81 mg DAILY PO 07/18/24 10:00 07/19/24 08:28 81 MG Metronidazole 100 ml @ 100 mls/hr Q8HR IV 07/17/24 14:00 07/20/24 05:20 100 MLS/HR Ceftriaxone Sodium 50 ml @ 100 mls/hr DAILY@09 IV 07/17/24 09:00 07/19/24 08:27 100 MLS/HR Ipratropium [place] 0.5 mg Q6HR NEB 07/17/24 06:00 07/20/24 06:43 0.5 MG Zinc Acetate/ Diphenhydramine 1 applic Q6HP PRN TOP 07/17/24 14:00 07/19/24 15:12 1 APPLIC Heparin Sodium (Porcine) 5,000 units Q8HR SC 07/17/24 22:00 07/19/24 22:18 5,000 UNITS Diphenhydramine HCl 25 mg Q8HPRN PRN IV 07/17/24 19:00 07/18/24 19:53 25 MG Lorazepam 0.5 mg Q8HP PRN PO 07/17/24 22:30 07/19/24 10:53 0.5 MG Hydralazine HCl 10 mg Q6HP PRN IV 07/18/24 05:30 07/20/24 01:40 10 MG Diagnostic Test (Pha) 1 strip ACHS 07/18/24 07:00 07/20/24 06:33 1 STRIP Insulin Human Regular ACHS SC 07/18/24 07:00 07/18/24 21:01 2 UNITS Dextrose 50 ml UD PRN IV 07/18/24 05:30 Insulin Glargine 10 units HS SC 07/18/24 22:00 07/18/24 21:02 10 UNITS Sevelamer HCl 2,400 mg TIDWM PO 07/18/24 16:00 07/19/24 18:09 2,400 MG Acetaminophen/ Hydrocodone Bitart 1 tab Q6HP PRN PO 07/18/24 16:00 Hold 07/19/24 06:51 1 TAB Morphine Sulfate 1 mg Q3HP PRN IV 07/19/24 08:15 07/19/24 15:51 1 MG Zirconium Oxide 10 gm Q48H PO 07/19/24 16:00 07/19/24 15:34 10 GM laboratory and microbiology Laboratory Tests 07/19/24 18:37 07/19/24 06:06 07/17/24 04:30 Test 07/19/24 06:06 Range/Units Serum Glucose 67 L 74-106 mg/dL Problem List SS COMPLEX OF BUTT SOB CHEST PAIN PMH; HFrEF EF <35% S/P BiV AICD NOW WITH CHEST PAIN TROPONIN NEGATIVE ECG NO CHANGED PT WITH HYPERKALEMIA SEVERE ANEMIA ESRD ON HD DIABETES NEPHROPATHY NEUROPATHY VASCULOPATHY NOW WITH SEVERE HYPERKALEMIA AND HYPOGLYCEMIA CXR C/W INTERSTITIAL LUNG DISEASE STILL WITH HYPERKALEMIA BNP IN AM Assessment/Plan CORRECT HYPERKALEMIA DIALYSIS CORRECT VOLUME OVERLOAD AND HYPERKALEMIA K+ STILL 5.5 DAILY LOKELMA MAINTAIN ON DAILY LOKELMA K 5.4 AUGUST DC HOME Plan discussed with: Patient LYUDMILA JORDAN MD Jul 20, 2024 07:59
[2024-07-20] MEDS: ONDANSETRON HCL 4 MG/2 ML VIAL IV PRN (08:30)
--- NOTE | 2024-07-20 12:43 | DVHPNRES ---
Progress Note Date Seen: Jul 20, 2024 Resident Creating Document: TIA VICENTE RESIDENT Has the PT tested + for MRSA If YES, has PT been informed?: No Medical Necessity Reason Pt with a Central, PICC or Fol: No Subjective Review of Systems The patient is a 54-year-old male with a complex medical history of hypertension, type 2 diabetes mellitus, end-stage renal disease (ESRD) on hemodialysis (Wednesday, Wednesday, Wednesday schedule), hyperlipidemia, reduced ejection fraction (EF 30%), coronary artery disease status post PCI, and pacemaker implantation, who presents to the ED with shortness of breath and left-sided chest pain ongoing for the past 24 hours. The chest pain is non-radiating, constant, and described as pressure-like, rated 8/10. The pain is reproducible on palpation and deep inspiration, suggesting a possible musculoskeletal or inflammatory origin. No nausea, back pain, or cough associated. Patient reports clear phlegm with occasional cough. The patient missed his scheduled hemodialysis on Wednesday after leaving the session early on Wednesday due to anxiety and episodes of diarrhea. He has not dialyzed since then. In the ED, he was noted to be alert and oriented, in mild respiratory distress, with bilateral crackles in lower lung zones. A 5 cm lipoma on the back was noted, mildly tender. Initial labs showed elevated BUN/Cr (BUN ~97), hyperkalemia (treated), and elevated BNP (>3000). ECG showed NSR, no ischemic changes, and normal troponins. A bedside focused cardiac ultrasound revealed an IVC of ~2 cm with <50% compressibility, suggesting normal or elevated right-sided filling pressures, with no pleural effusion visualized Patient is anuric, has been given furosemide with no response, and will require hemodialysis. Excoriations on the lower extremities are present, likely related to uremic pruritus or possible elevated phosphate levels. Patient was examined at bedside, hemodialysis was done today but potassium levels still elevated, we will re-evaluate potassium levels if normalizes patient will be good for discharge. Possible discharge tomorrow Patient reports: Feels better Changes from previous H/P or p: Changes Review of Systems: HEENT:Normal, CVS:Normal, RESPIRATORY:Normal, GI:Normal, :Abnormal, MSK:Normal, NEURO:Normal Objective vital signs Vital Sign Date Time Temp Pulse Resp B/P (MAP) Pulse Ox O2 Delivery O2 Flow Rate FiO2 07/20/24 12:39 89 16 151/84 07/20/24 12:21 100 07/20/24 12:15 Room Air* 0 21 07/20/24 08:57 98.4 98.4 Total Intake and Output 07/19/24 07/19/24 07/20/24 15:00 23:00 07:00 Intake Total 150 ml 2300 ml 120 ml Balance 150 ml 2300 ml 120 ml medications Current Medications Medications Dose Ordered Sig/[place] Route Start Time Stop Time Status Last Admin Dose Admin Acetaminophen 650 mg Q6HP PRN PO 07/17/24 04:15 Ondansetron HCl 4 mg Q4HP PRN IV 07/17/24 04:15 07/20/24 08:30 4 MG Nitroglycerin 0.4 mg Q5MINP PRN SL 07/17/24 04:15 Morphine Sulfate 2 mg Q30M PRN IV 07/17/24 04:15 Levalbuterol HCl 0.625 mg Q6HR NEB 07/17/24 06:00 07/20/24 12:15 0.625 MG Atorvastatin Calcium 40 mg HS PO 07/17/24 22:00 07/20/24 00:24 40 MG Metoprolol Succinate 50 mg DAILY PO 07/18/24 10:00 07/19/24 10:53 50 MG Nifedipine 90 mg DAILY PO 07/18/24 10:00 07/19/24 10:54 90 MG Aspirin 81 mg DAILY PO 07/18/24 10:00 07/20/24 08:26 81 MG Metronidazole 100 ml @ 100 mls/hr Q8HR IV 07/17/24 14:00 07/20/24 05:20 100 MLS/HR Ceftriaxone Sodium 50 ml @ 100 mls/hr DAILY@09 IV 07/17/24 09:00 07/20/24 08:32 100 MLS/HR Ipratropium [place] 0.5 mg Q6HR NEB 07/17/24 06:00 07/20/24 12:15 0.5 MG Zinc Acetate/ Diphenhydramine 1 applic Q6HP PRN TOP 07/17/24 14:00 07/19/24 15:12 1 APPLIC Heparin Sodium (Porcine) 5,000 units Q8HR SC 07/17/24 22:00 07/19/24 22:18 5,000 UNITS Diphenhydramine HCl 25 mg Q8HPRN PRN IV 07/17/24 19:00 07/18/24 19:53 25 MG Lorazepam 0.5 mg Q8HP PRN PO 07/17/24 22:30 07/19/24 10:53 0.5 MG Hydralazine HCl 10 mg Q6HP PRN IV 07/18/24 05:30 07/20/24 01:40 10 MG Diagnostic Test (Pha) 1 strip ACHS 07/18/24 07:00 07/20/24 11:37 1 STRIP Insulin Human Regular ACHS SC 07/18/24 07:00 07/18/24 21:01 2 UNITS Dextrose 50 ml UD PRN IV 07/18/24 05:30 Insulin Glargine 10 units HS SC 07/18/24 22:00 07/18/24 21:02 10 UNITS Sevelamer HCl 2,400 mg TIDWM PO 07/18/24 16:00 07/20/24 12:42 2,400 MG Acetaminophen/ Hydrocodone Bitart 1 tab Q6HP PRN PO 07/18/24 16:00 Hold 07/19/24 06:51 1 TAB Morphine Sulfate 1 mg Q3HP PRN IV 07/19/24 08:15 07/20/24 12:39 1 MG Zirconium Oxide 10 gm Q48H PO 07/19/24 16:00 07/19/24 15:34 10 GM Examination: GENERAL:Normal, HEENT:Normal, NECK:Normal, LUNGS:Normal, CVS:Normal, ABDOMEN:Normal, MSK:Normal, SKIN:Normal, NEURO:Normal, :Abnormal laboratory and microbiology Laboratory Tests 07/19/24 18:37 07/19/24 06:06 07/17/24 04:30 Test 07/19/24 06:06 Range/Units Serum Glucose 67 L 74-106 mg/dL Microbiology Date/Time Source Procedure Growth Status 07/17/24 05:37 Nose MRSA Screen - Final Complete Problem List/Assessment/Plan Problem List/Assessment/Plan #Non cardiac chest pain , likely multifactorial (pleuritic + MSK + possible uremic pericarditis) #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 -[place] # Constipation -lactulose p.r.n. #PossibleAcute on chronic Heart failure with reduced EF (EF 30%) exacerbation #Known CAD with pacemaker - Monitor volume status post-dialysis - Diuresis ineffective due to anuria #ESRD with missed dialysis #hemodialysis today -Elevated BUN/Cr, potassium managed -Uremic pruritus, excoriations on LE -sevelamer #Hyperkalemia resolving - Lokelma once - monitor #Generalized anxiety disorder -Treated with Ativan 0.5 (home dose)1x for HD #Possible parasitic skin infection - Patient-reported; etiology unclear case discussed with goals of care:29 min code status: full code Plan discussed with: Patient My Orders My Orders Orders - TIA VICENTE RESIDENT Procedure Category Date Status Time Insert Midline ORDERS 07/20/24 Transmitted 07:09 Dietary Evaluation Review Comments: 1. Disagree with diet, would change to Renal Specific (2 gm K, 2 gm Na, 100 gm Pro) and check phosphorus lab to determine if phos-restriction is warranted 2. Agree with daily lokelma, sevelamer TID @ meals 3. Encourage continued good oral intakes >75% of meals to meet needs 4. If PO declines (<50% intake consistently), suggest Nepro supplement BID to enhance nutritional status (425 kcal, 19 gm pro per carton) 5. Appreciate dry wt's s/p HD sessions Expected Outcomes/Goals: Improved renal labs, adequate nutrition. TIA VICENTE RESIDENT Jul 20, 2024 12:43
[2024-07-20 13:47] LABS: Hepatitis A Ab IgM Negative; Hepatitis B Core IgM Negative (Negative); Hepatitis B Surface Antigen Negative (Negative); Hepatitis C Antibody Negative (Negative)
[2024-07-20 18:53] LABS: Magnesium 2.5 mg/dL (1.6-2.6)
[2024-07-20 18:55] LABS: Phosphorus 7.3 mg/dL (2.4-5.1)
[2024-07-20] MEDS ORDERED: LORazepam 2MG/ML-1ML VIAL ONE (22:02)
[2024-07-21] VITALS (15 sets, daily range): BP systolic 128–172; BP diastolic 75–97; PULSE 84–105; RESP 16–20; TEMP 97.3–98.6; O2SAT 94–100
[2024-07-21 07:27] LABS: Basophils # (auto) 0.1 10 ^3/uL (0-0.2); Basophils % (auto) 1.5 % (0.0-2.0); Eosinophils # (auto) 0.2 10 ^3/uL (0-0.8); Eosinophils % (auto) 4.6 % (0.0-7.0); Hematocrit 28.3 % (41.0-53.0); Hemoglobin 9.4 g/dL (13.5-17.5); Lymphocytes # (auto) 0.4 10 ^3/uL (0.4-5.4); Lymphocytes % (auto) 10.8 % (10.0-50.0); Mean Corpuscular Hemoglobin 29.9 pg (28.0-32.0); Mean Corpuscular Hgb Conc. 33.1 g/dL (32.0-36.0); Mean Corpuscular Volume 90.3 fL (80.0-100.0); Monocytes # (auto) 0.4 10 ^3/uL (0-1.3); Monocytes % (auto) 9.4 % (0.0-12.0); Neutrophils # (auto) 2.9 10 ^3/uL (1.6-8.6); Neutrophils % (auto) 73.7 % (37.0-80.0); Platelet Count (auto) 187 10^3/uL (140-450); Red Blood Cells 3.13 10^6/uL (4.5-5.90); Red Cell Distribution Width 16.8 % (11.8-14.3)
[2024-07-21 07:31] LABS: Sodium 138 mmol/L (136-145)
[2024-07-21 07:32] LABS: Anion Gap 10 (5-15); Calcium 10.2 mg/dL (8.7-10.4)
[2024-07-21 07:33] LABS: Carbon Dioxide 32 mmol/L (20-31); Chloride 96 mmol/L (98-107); Potassium 5.1 mmol/L (3.5-5.1)
[2024-07-21 07:37] LABS: BUN/Creatinine Ratio 5.9 (10.0-20.0)
[2024-07-21 07:40] LABS: Blood Urea Nitrogen 38 mg/dL (9-23); Glucose 64 mg/dL (74-106)
[2024-07-21] MEDS: DEXTROSE (50%) 50ML SYRG IV PRN (12:47)
--- NOTE | 2024-07-21 14:25 | DVHPN2 ---
Progress Note - Dictate Date Seen: Jul 21, 2024 Has the PT tested + for MRSA If YES, has PT been informed?: No Medical Necessity Reason Pt with a Central, PICC or Fol: No Subjective no new symptoms complains of fluid overload vital signs Vital Sign Date Time Temp Pulse Resp B/P (MAP) Pulse Ox O2 Delivery O2 Flow Rate FiO2 07/21/24 12:23 101 14 139/71 07/21/24 11:39 100 07/21/24 11:33 Nasal Cannula 2.0 07/21/24 11:33 28 07/21/24 09:00 98.1 98.1 Total Intake and Output 07/20/24 07/20/24 07/21/24 15:00 23:00 07:00 Intake Total 50 ml 220 ml 500 ml Output Total 0 ml Balance 50 ml 220 ml 500 ml medications Current Medications Medications Dose Ordered Sig/Caroline Route Start Time Stop Time Status Last Admin Dose Admin Acetaminophen 650 mg Q6HP PRN PO 07/17/24 04:15 Ondansetron HCl 4 mg Q4HP PRN IV 07/17/24 04:15 07/20/24 08:30 4 MG Nitroglycerin 0.4 mg Q5MINP PRN SL 07/17/24 04:15 Morphine Sulfate 2 mg Q30M PRN IV 07/17/24 04:15 Levalbuterol HCl 0.625 mg Q6HR NEB 07/17/24 06:00 07/21/24 11:32 0.625 MG Atorvastatin Calcium 40 mg HS PO 07/17/24 22:00 07/20/24 22:12 40 MG Metoprolol Succinate 50 mg DAILY PO 07/18/24 10:00 07/21/24 08:15 50 MG Nifedipine 90 mg DAILY PO 07/18/24 10:00 07/21/24 08:15 90 MG Aspirin 81 mg DAILY PO 07/18/24 10:00 07/21/24 08:14 81 MG Metronidazole 100 ml @ 100 mls/hr Q8HR IV 07/17/24 14:00 07/21/24 06:22 100 MLS/HR Ceftriaxone Sodium 50 ml @ 100 mls/hr DAILY@09 IV 07/17/24 09:00 07/21/24 08:14 100 MLS/HR Ipratropium [place] 0.5 mg Q6HR NEB 07/17/24 06:00 4/4/25 06:02 0.5 MG Zinc Acetate/ Diphenhydramine 1 applic Q6HP PRN TOP 07/17/24 14:00 07/21/24 03:45 1 APPLIC Heparin Sodium (Porcine) 5,000 units Q8HR SC 07/17/24 22:00 07/19/24 22:18 5,000 UNITS Diphenhydramine HCl 25 mg Q8HPRN PRN IV 07/17/24 19:00 07/18/24 19:53 25 MG Lorazepam 0.5 mg Q8HP PRN PO 07/17/24 22:30 07/21/24 13:22 0.5 MG Hydralazine HCl 10 mg Q6HP PRN IV 07/18/24 05:30 07/21/24 00:09 10 MG Diagnostic Test (Pha) 1 strip ACHS 07/18/24 07:00 07/21/24 11:01 1 STRIP Insulin Human Regular ACHS SC 07/18/24 07:00 07/21/24 11:07 2 UNITS Dextrose 50 ml UD PRN IV 07/18/24 05:30 07/21/24 12:47 50 ML Insulin Glargine 10 units HS SC 07/18/24 22:00 07/20/24 22:13 10 UNITS Sevelamer HCl 2,400 mg TIDWM PO 07/18/24 16:00 07/21/24 11:51 2,400 MG Acetaminophen/ Hydrocodone Bitart 1 tab Q6HP PRN PO 07/18/24 16:00 Hold 07/19/24 06:51 1 TAB Morphine Sulfate 1 mg Q3HP PRN IV 07/19/24 08:15 07/21/24 11:53 1 MG Zirconium Oxide 10 gm Q48H PO 07/19/24 16:00 07/19/24 15:34 10 GM objective gen: NAD, AAOx3 HEENT: NC,AT Cardiac: RRR, no murmur Abd:soft, no tenderness Ext: no edema Neruo: no focal defictis laboratory and microbiology Laboratory Tests 07/21/24 06:18 Test 07/21/24 06:18 Range/Units Serum Glucose 64 L 74-106 mg/dL Assessment/Plan ESRD on HD Hyperkalemia , controlled Acute on chronic systolic CHF (EF: 35%) Fluid overload s/p AICD Chest pain with negative serial troponin DM, type II HTN Anemia of CKD hyperphosphatemia secondary hyperparathyroidism Metabolic acidosis Plan: s/p HD Scheduled again for HD /Wednesday for fluid overload low K diet fluid restriction Continue Sevelamer 3 tabs TID with meals Continue Nifedipine Dietary Evaluation Review Comments: 1. Disagree with diet, would change to Renal Specific (2 gm K, 2 gm Na, 100 gm Pro) and check phosphorus lab to determine if phos-restriction is warranted 2. Agree with daily lokelma, sevelamer TID @ meals 3. Encourage continued good oral intakes >75% of meals to meet needs 4. If PO declines (<50% intake consistently), suggest Nepro supplement BID to enhance nutritional status (425 kcal, 19 gm pro per carton) 5. Appreciate dry wt's s/p HD sessions Expected Outcomes/Goals: Improved renal labs, adequate nutrition. Plan discussed with: Patient, Other BHAVESH MCODNNELL MD Jul 21, 2024 14:25
--- NOTE | 2024-07-21 14:28 | DVHPN2 ---
Progress Note - Dictate Date Seen: Jul 21, 2024 Has the PT tested + for MRSA If YES, has PT been informed?: No Medical Necessity Reason Pt with a Central, PICC or Fol: No Subjective PT WITH SS COMPLEX OF BUTT SOB CHEST PAIN PMH; HFrEF EF <35% S/P BiV AICD NOW WITH CHEST PAIN TROPONIN NEGATIVE ECG NO CHANGED PT WITH HYPERKALEMIA SEVERE ANEMIA ESRD ON HD DIABETES NEPHROPATHY NEUROPATHY VASCULOPATHY NOW WITH SEVERE HYPERKALEMIA AND HYPOGLYCEMIA CXR C/W INTERSTITIAL LUNG DISEASE vital signs Vital Sign Date Time Temp Pulse Resp B/P (MAP) Pulse Ox O2 Delivery O2 Flow Rate FiO2 07/21/24 12:23 101 14 139/71 07/21/24 11:39 100 07/21/24 11:33 Nasal Cannula 2.0 07/21/24 11:33 28 07/21/24 09:00 98.1 98.1 Total Intake and Output 07/20/24 07/20/24 07/21/24 15:00 23:00 07:00 Intake Total 50 ml 220 ml 500 ml Output Total 0 ml Balance 50 ml 220 ml 500 ml medications Current Medications Medications Dose Ordered Sig/Caroline Route Start Time Stop Time Status Last Admin Dose Admin Acetaminophen 650 mg Q6HP PRN PO 07/17/24 04:15 Ondansetron HCl 4 mg Q4HP PRN IV 07/17/24 04:15 07/20/24 08:30 4 MG Nitroglycerin 0.4 mg Q5MINP PRN SL 07/17/24 04:15 Morphine Sulfate 2 mg Q30M PRN IV 07/17/24 04:15 Levalbuterol HCl 0.625 mg Q6HR NEB 07/17/24 06:00 07/21/24 11:32 0.625 MG Atorvastatin Calcium 40 mg HS PO 07/17/24 22:00 07/20/24 22:12 40 MG Metoprolol Succinate 50 mg DAILY PO 07/18/24 10:00 07/21/24 08:15 50 MG Nifedipine 90 mg DAILY PO 07/18/24 10:00 07/21/24 08:15 90 MG Aspirin 81 mg DAILY PO 07/18/24 10:00 07/21/24 08:14 81 MG Metronidazole 100 ml @ 100 mls/hr Q8HR IV 07/17/24 14:00 07/21/24 06:22 100 MLS/HR Ceftriaxone Sodium 50 ml @ 100 mls/hr DAILY@09 IV 07/17/24 09:00 07/21/24 08:14 100 MLS/HR Ipratropium [place] 0.5 mg Q6HR NEB 07/17/24 06:00 07/21/24 06:02 0.5 MG Zinc Acetate/ Diphenhydramine 1 applic Q6HP PRN TOP 07/17/24 14:00 07/21/24 03:45 1 APPLIC Heparin Sodium (Porcine) 5,000 units Q8HR SC 07/17/24 22:00 07/19/24 22:18 5,000 UNITS Diphenhydramine HCl 25 mg Q8HPRN PRN IV 07/17/24 19:00 07/18/24 19:53 25 MG Lorazepam 0.5 mg Q8HP PRN PO 07/17/24 22:30 07/21/24 13:22 0.5 MG Hydralazine HCl 10 mg Q6HP PRN IV 07/18/24 05:30 07/21/24 00:09 10 MG Diagnostic Test (Pha) 1 strip ACHS 07/18/24 07:00 07/21/24 11:01 1 STRIP Insulin Human Regular ACHS SC 07/18/24 07:00 07/21/24 11:07 2 UNITS Dextrose 50 ml UD PRN IV 07/18/24 05:30 07/21/24 12:47 50 ML Insulin Glargine 10 units HS SC 07/18/24 22:00 07/20/24 22:13 10 UNITS Sevelamer HCl 2,400 mg TIDWM PO 07/18/24 16:00 07/21/24 11:51 2,400 MG Acetaminophen/ Hydrocodone Bitart 1 tab Q6HP PRN PO 07/18/24 16:00 Hold 07/19/24 06:51 1 TAB Morphine Sulfate 1 mg Q3HP PRN IV 07/19/24 08:15 07/21/24 11:53 1 MG Zirconium Oxide 10 gm Q48H PO 07/19/24 16:00 07/19/24 15:34 10 GM laboratory and microbiology Laboratory Tests 07/21/24 06:18 Test 07/21/24 06:18 Range/Units Serum Glucose 64 L 74-106 mg/dL Problem List SS COMPLEX OF BUTT SOB CHEST PAIN PMH; HFrEF EF <35% S/P BiV AICD NOW WITH CHEST PAIN TROPONIN NEGATIVE ECG NO CHANGED PT WITH HYPERKALEMIA SEVERE ANEMIA ESRD ON HD DIABETES NEPHROPATHY NEUROPATHY VASCULOPATHY NOW WITH SEVERE HYPERKALEMIA AND HYPOGLYCEMIA CXR C/W INTERSTITIAL LUNG DISEASE STILL WITH HYPERKALEMIA BNP IN AM Assessment/Plan CORRECT HYPERKALEMIA DIALYSIS CORRECT VOLUME OVERLOAD AND HYPERKALEMIA K+ STILL 5.5 DAILY LOKELMA MAINTAIN ON DAILY LOKELMA K 5.4 MAY DC HOME K+ SLOWLY TRENDING DOWN ON LOKELMA Dietary Evaluation Review Comments: 1. Disagree with diet, would change to Renal Specific (2 gm K, 2 gm Na, 100 gm Pro) and check phosphorus lab to determine if phos-restriction is warranted 2. Agree with daily lokelma, sevelamer TID @ meals 3. Encourage continued good oral intakes >75% of meals to meet needs 4. If PO declines (<50% intake consistently), suggest Nepro supplement BID to enhance nutritional status (425 kcal, 19 gm pro per carton) 5. Appreciate dry wt's s/p HD sessions Expected Outcomes/Goals: Improved renal labs, adequate nutrition. Plan discussed with: Patient LYUDMILA JORDAN MD Jul 21, 2024 14:28
[2024-07-21] MEDS ORDERED: SODIUM CHL 0.9% 1000 ML BAG XX ONE (15:00)
--- NOTE | 2024-07-21 20:14 | DVHDS2 ---
Discharge Summary Date of Admission Jul 17, 2024 at 04:07 Date of Discharge: Jul 21, 2024 Labs/Diagnostic Data: Laboratory Results Test 07/21/24 17:06 07/21/24 06:18 07/20/24 18:32 07/19/24 06:06 POC Glucose 162 mg/dl (70-106) White Blood Count 4.0 10^3/uL (4.4-10.8) Red Blood Count 3.13 10^6/uL (4.5-5.90) Hemoglobin 9.4 g/dL (13.5-17.5) Hematocrit 28.3 % (41.0-53.0) Mean Corpuscular Volume 90.3 fL (80.0-100.0) Mean Corpuscular Hemoglobin 29.9 pg (28.0-32.0) Mean Corpuscular Hemoglobin Concent 33.1 g/dL (32.0-36.0) Red Cell Distribution Width 16.8 % (11.8-14.3) Platelet Count 187 10^3/uL (140-450) Mean Platelet Volume 8.4 fL (6.9-10.8) Neutrophils (%) (Auto) 73.7 % (37.0-80.0) Lymphocytes (%) (Auto) 10.8 % (10.0-50.0) Monocytes (%) (Auto) 9.4 % (0.0-12.0) Eosinophils (%) (Auto) 4.6 % (0.0-7.0) Basophils (%) (Auto) 1.5 % (0.0-2.0) Neutrophils # (Auto) 2.9 10 ^3/uL (1.6-8.6) Lymphocytes # (Auto) 0.4 10 ^3/uL (0.4-5.4) Monocytes # (Auto) 0.4 10 ^3/uL (0-1.3) Eosinophils # (Auto) 0.2 10 ^3/uL (0-0.8) Basophils # (Auto) 0.1 10 ^3/uL (0-0.2) Nucleated Red Blood Cells 0.0 % Sodium Level 138 mmol/L (136-145) Potassium Level 5.1 mmol/L (3.5-5.1) Chloride Level 96 mmol/L (98-107) Carbon Dioxide Level 32 mmol/L (20-31) Anion Gap 10 (5-15) Blood Urea Nitrogen 38 mg/dL (9-23) Creatinine 6.48 mg/dL (0.700-1.30) Glomerular Filtration Rate Calc 10 mL/min (>90) BUN/Creatinine Ratio 5.9 (10.0-20.0) Serum Glucose 64 mg/dL (74-106) Calcium Level 10.2 mg/dL (8.7-10.4) Phosphorus Level 7.3 mg/dL (2.4-5.1) Magnesium Level 2.5 mg/dL (1.6-2.6) Total Bilirubin < 0.2 mg/dL (0.2-1.0) Aspartate Amino Transferase (AST) 10 U/L (13-40) Alanine Aminotransferase (ALT) < 9 U/L (7-40) Alkaline Phosphatase 99 U/L (46-116) Total Protein 6.5 g/dL (5.7-8.2) Albumin 4.0 g/dL (3.2-4.8) Test 07/17/24 17:23 07/17/24 08:21 07/17/24 05:39 07/17/24 04:30 Hepatitis A IgM Antibody Negative Hepatitis B Surface Antigen Negative (Negative) Hepatitis B Core IgM Antibody Negative (Negative) Hepatitis C Antibody Negative (Negative) Erythrocyte Sedimentation Rate 63 mm/hr (0-20) Influenza Type A Antigen Negative (Negative) Influenza Type B Antigen Negative (Negative) SARS-CoV-2 Antigen (Rapid) Negative (NEGATIVE) Prothrombin Time 10.8 sec (9.3-11.8) Prothrombin Time INR 1.02 (0.9-1.15) Activated Partial Thromboplast Time 27.9 SEC (24.5-34.5) D-Dimer, Quantitative 2.26 mg/L FEU (0.0-0.49) Hemoglobin A1c 5.8 % A1C (<5.7) C-Reactive Protein High Sensitivity 1.40 mg/dL (<1.0) B-Type Natriuretic Peptide 3043.06 pg/mL (0-100) Test 07/17/24 01:49 Troponin I High Sensitivity 41 ng/L (</=54) Other Laboratory Tests 07/21/24 06:18 Brief Hx & Hospital Course: The patient is a 54-year-old male with a complex medical history of hypertension, type 2 diabetes mellitus, end-stage renal disease (ESRD) on hemodialysis (Wednesday, Wednesday, Wednesday schedule), hyperlipidemia, reduced ejection fraction (EF 30%), coronary artery disease status post PCI, and pacemaker implantation, who presents to the ED with shortness of breath and left-sided chest pain ongoing for the past 24 hours. The chest pain is non-radiating, constant, and described as pressure-like, rated 8/10. The pain is reproducible on palpation and deep inspiration, suggesting a possible musculoskeletal or inflammatory origin. No nausea, back pain, or cough associated. Patient reports clear phlegm with occasional cough. The patient missed his scheduled hemodialysis on Wednesday after leaving the session early on Wednesday due to anxiety and episodes of diarrhea. He has not dialyzed since then. In the ED, he was noted to be alert and oriented, in mild respiratory distress, with bilateral crackles in lower lung zones. A 5 cm lipoma on the back was noted, mildly tender. Initial labs showed elevated BUN/Cr (BUN ~97), hyperkalemia (treated), and elevated BNP (>3000). ECG showed NSR, no ischemic changes, and normal troponins. A bedside focused cardiac ultrasound revealed an IVC of ~2 cm with <50% compressibility, suggesting normal or elevated right-sided filling pressures, with no pleural effusion visualized Patient is anuric, has been given furosemide with no response, and will require hemodialysis. Excoriations on the lower extremities are present, likely related to uremic pruritus or possible elevated phosphate levels. Patient was examined at bedside, hemodialysis to continue taking fluids and resolved hyperkalemia. stable to dc home to c/w regular HD. Condition at Discharge: Good Final Diagnosis/Problems List acute on chronic systolic hf exacerbation 2/2 fluid overload Discharge Disposition: Home Discharge Instruct/Medications Diet: Cardiac 2g Na,low cholest, Renal Activity: No Restrictions, As Tolerated Follow Up/Referral: [address] Campbell dialysis Discharge Statement: "Patient was advised to return to the ER or call 911 if any headaches, dizziness, shortness of breath, chest pain, abdominal pain, bleeding, fevers, or worsening of medical condition. Patient was counseled about treatment plan, medications, possible side effects, patientverbalized understanding. All questions were answered to the best of my ability. 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
== END 2024-07-21 20:15 | disposition home or self-care (01) | DRG 640 ==
LOC: ER 21:59 → OVERFLOW 07-17 04:07 → TELE-EAST 07-17 13:45
PROVIDERS: ADMIT Student in an Organized Health Care Education/Training Program; ATTEND Student in an Organized Health Care Education/Training Program
PROC: 5A1D70Z Performance of Urinary Filtration, Intermittent, Less than 6 Hours Per Day (ICD-10-PCS; principal; 2024-07-17)
PROC: 5A1D70Z Performance of Urinary Filtration, Intermittent, Less than 6 Hours Per Day (ICD-10-PCS; 2024-07-18)
PROC: 5A1D70Z Performance of Urinary Filtration, Intermittent, Less than 6 Hours Per Day (ICD-10-PCS; 2024-07-20)
DX: E87.5 Hyperkalemia (principal); I50.23 Acute on chronic systolic (congestive) heart failure; J96.01 Acute respiratory failure with hypoxia; N18.6 End stage renal disease; I13.2 Hypertensive heart and chronic kidney disease with heart failure and with stage 5 chronic kidney disease, or end stage renal disease; N25.81 Secondary hyperparathyroidism of renal origin; I16.1 Hypertensive emergency; J84.9 Interstitial pulmonary disease, unspecified; I32 Pericarditis in diseases classified elsewhere; I25.110 Atherosclerotic heart disease of native coronary artery with unstable angina pectoris; E87.20 Acidosis, unspecified; E83.39 Other disorders of phosphorus metabolism; E11.649 Type 2 diabetes mellitus with hypoglycemia without coma; D17.1 Benign lipomatous neoplasm of skin and subcutaneous tissue of trunk; E78.5 Hyperlipidemia, unspecified; Z20.822 Contact with and (suspected) exposure to COVID-19; E11.40 Type 2 diabetes mellitus with diabetic neuropathy, unspecified; E11.22 Type 2 diabetes mellitus with diabetic chronic kidney disease; D63.1 Anemia in chronic kidney disease; F17.210 Nicotine dependence, cigarettes, uncomplicated; G89.29 Other chronic pain; F41.1 Generalized anxiety disorder; I25.2 Old myocardial infarction; K59.00 Constipation, unspecified; L29.9 Pruritus, unspecified; Z82.49 Family history of ischemic heart disease and other diseases of the circulatory system; Z99.2 Dependence on renal dialysis; Z98.61 Coronary angioplasty status; Z91.199 Patient's noncompliance with other medical treatment and regimen due to unspecified reason; Z83.3 Family history of diabetes mellitus; Z95.810 Presence of automatic (implantable) cardiac defibrillator; Z79.4 Long term (current) use of insulin; Z79.899 Other long term (current) drug therapy; Z79.51 Long term (current) use of inhaled steroids
CPT/HCPCS: 36415; 71045; 80048; 80053; 80074; 82962; 83036; 83735; 83880; 84100; 84132; 84484; 85025; 85379; 85610; 85652; 85730; 86141; 87081; 87426; 87804; 90935; 93005; 94640; 94644; 96365; 96375; 99291; G0378; J1815; J2405; J3490

== ENCOUNTER 2024-07-30 19:33 | Inpatient (IN) | payer MEDICAID, MEDICARE ==
[~2024-07-30] VITALS: Ht 172.7 cm; Wt 74.3 kg
[~2024-07-30 19:33] MED LIST changes: -ATOR20TA50 PO
--- NOTE | 2024-07-30 19:44 | ECG ---
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
--- NOTE | 2024-07-30 19:53 | ED.PDOC ---
HPI Comments 54-year-old male presents with a chief complaint of chest pain x 2 hours. Patient states that his pain is localized to his left chest, radiates to his back, describes as pressure. Patient mentions that he was sitting down when onset of symptoms began. Patient also endorses that he has anxiety which he takes Ativan for and [place] 10s "for the pain". Patient is requesting pain medication at this time. EKG shows paced rhythm at 83 BPM. Chief Complaint: Chest Pain Time Seen by MD: 19:44 Primary Care Provider: ofelia Reviewed Notes: Medications, Allergies Allergies: Coded Allergies: Pneumococcal Vaccines (Verified Allergy, Unknown, 07/17/24) Home Meds Active Scripts Diphenhydramine-Zinc Acetate (Benadryl Cream) 1 Applic Ap, 1 APPLIC TOP Q6HPRN PRN for 30 Days, #120 APPLIC Prov:ALANA CANNON 07/30/23 Acetaminophen (Acetaminophen) 325 Mg Tab, 650 MG PO Q6HP PRN for 30 Days, #240 TAB Prov:ALANA CANNON 07/30/23 Ergocalciferol (VITAMIN D 73111 UNIT) 50,000 [place], 164[address] UNIT PO Q7D for 30 Days, #10 CAP Prov:ALANA CANNON 07/30/23 Ticagrelor Base (BRILINTA) 90 Mg Tab, 60 MG PO BID, #60 TAB 5 Refills Prov:LEIGHTON HARDY MD 11/06/22 B-Complex W/ C & Folic Acid (Mayra-Evan) Tab, 1 TAB PO DAILY for 30 Days, #30 TAB Prov:LEIGHTON HARDY MD 11/06/22 Albuterol Sulfate (VENTOLIN MDI) 90 Mcg Ih, 90 MCG IN Q6HP PRN, #1 INH 180 MCG Q6H NEEDED FOR SHORTNESS OF BREATH AND WHEEZING Prov:NOAM CORREA MD 04/26/21 Metoprolol Succinate (Toprol Xl) 50 Mg Tab, 100 MG PO DAILY for 30 Days, #60 TAB Prov:NOAM CORREA MD 12/30/19 Reported Medications Lorazepam (ATIVAN TABLET) 0.5 Mg Tb, 1 TAB PO TID PRN for ANXIETY, #90 TAB 10/16/23 Patients Own Medication (PATIENTS OWN MEDICATION) ., 1 PATCH TD DAILY PTS OWN MED-OBTAIN FROM PT AND SEND TO RX DRUG: FREQ: RX# EXP: DATE DISP: TECH: RPH: 10/16/23 Sevelamer Carbonate (Sevelamer Carbonate) 800 Mg Tab, 5 TAB PO TIDWM, TAB 10/16/23 Insulin Glargine (Lantus) 100 Unit/Ml Inj, 15 UNIT SC HS, INJ 10/16/23 Trazodone Hcl (Trazodone Hcl) 150 Mg Tab, 150 MG PO for for sleep, MG 09/19/23 Nifedipine (Nifedipine Er) 90 Mg Tab, 1 TAB PO DAILY, #30 TAB 5 Refills 07/26/21 Hydralazine Hcl (Hydralazine Hcl) 50 Mg Tab, 50 MG PO TID for 30 Days, MG 07/26/21 Insulin Lispro (Human) (Humalog) 100 Unit/Ml Inj, 2-3 UNIT SC TID, INJ 12/20/19 Atorvastatin Calcium (ATORVASTATIN CALCIUM) 40 Mg Tab, 1 TAB PO HS, #30 TAB 5 Refills 03/27/19 Information Source: Patient Mode of Arrival: Ambulatory Severity: Moderate Timing: Hours Duration: Since onset Prehospital treatment: None Location: Chest (L) Radiation: Back Quality: Pressure Onset: At Rest Cardiac Risk Factors: HTN, Diabetes PE Risk Factors: None History of: Similar pain in past Vital Signs Vital Signs Date Time Temp Pulse Resp B/P (MAP) Pulse Ox O2 Delivery O2 Flow Rate FiO2 07/30/24 22:35 87 07/30/24 21:00 20 98 Room Air* 0 21 07/30/24 19:50 98.5 169/100 (123) 98.5 Physical Exam General: Awake, alert and oriented. No acute distress. Skin: Skin in warm, dry and intact. Appropriate color for ethnicity. Large mass on the upper back which patient states is chronic HEENT: The head is normocephalic and atraumatic. Conjunctivae are clear without exudates or hemorrhage. Sclera is non-icteric. EOM are intact. No signs of nystagmus. Eyelids are normal in appearance without swelling or lesions. Oral mucosa is pink and moist Neck: The neck is supple with normal range of motion. No JVD. Cardiac: Heart rate and rhythm are normal. No murmurs, gallops, or rubs are auscultated. Respiratory: No signs of respiratory distress. Lung sounds are clear in all lobes bilaterally without rales, rhonchi, or wheezes. Abdominal: Abdomen is soft, non-tender without distention. Bowel sounds are present and normoactive in all four quadrants. Bruising on left lower abdomen secondary to recent Lovenox injection Extremities: Upper and lower extremities are atraumatic in appearance without deformity or edema. Neurological: The patient is awake, alert and oriented to person, place, and time with normal speech. Speech is clear. There is no facial asymmetry. Psychiatric: Appropriate mood and affect. Good judgement and insight. Review of Systems: REVIEW OF SYSTEMS: No fever, no chills, or fatigue HEENT: No sore throat, no earache, no congestion, no neck pain. Cardiac: Positive chest pain. No palpitations. Lungs: No shortness of breath, positive cough. GI: Positive nausea, no vomiting, no diarrhea, no constipation, no abdominal pain : No dysuria, frequency, or urgency. No hematuria. Musculoskeletal: Positive Back pain, No new joint pain , no joint swelling, no extremity edema. Skin: No rash, no itching. Positive lump on back Neuro: No headache, positive dizziness, no weakness Psych: Positive anxiety Past Medical History PAST MEDICAL HISTORY: Anxiety, CAD, CHF, Depression, DM, ESRD, High Lipids, HTN, NV Surgical History: Pacemaker, PTCA Family History Family History: Reviewed,noncontributory to illness, Family hx of DM, Family hx of heart razia, Family hx of HTN Social History Smoker: Cigarettes Alcohol: Occasionally Drugs: Cocaine Lives In: Home EKG EKG : Pulse Rate (adult): 83 [place]: Normal Cardiac Rhythm: Paced Block: None Hypertrophy: None ST: Normal Comments No STEMI Was a procedure done? Was a procedure done?: No CP Differential Dx Differential Diagnosis: Other (Differential diagnoses considered include acute ischemic coronary syndrome, aortic dissection, cardiac tamponade, mediastinitis, pulmonary embolus, pneumothorax, tension pneumothorax, esophageal rupture, coronary artery vasospasm, myocarditis, pericarditis, pneumonia, pulmonary edema, esophageal tear, pancreatitis, aortic stenosis, dilated cardiomyopathy, hypertrophic cardiomyopathy, mitral valve prolapse, malignancy, pleuritis, pneumomediastinum, primary pulmonary hypertension, cholecystitis, esophageal spasm, esophagus, gastritis, GERD, peptic ulcer disease, costochondritis, fibromyalgia, rib fracture, herpes zoster, radicular syndromes, thoracic outlet syndrome, somatization.) X-Ray, Labs, Meds, VS Vital Signs Date Time Temp Pulse Resp B/P (MAP) Pulse Ox O2 Delivery O2 Flow Rate FiO2 07/30/24 22:35 87 07/30/24 21:00 20 98 Room Air* 0 21 07/30/24 20:36 82 07/30/24 19:53 83 07/30/24 19:50 98.5 70 16 169/100 (123) 97 98.5 07/30/24 19:42 83 Lab Test 07/30/24 20:48 07/30/24 19:49 Range/Units Troponin I High Sensitivity 27 27 </=54 ng/L White Blood Count 5.5 4.4-10.8 10^3/uL Red Blood Count 3.71 L 4.5-5.90 10^6/uL Hemoglobin 11.1 L 13.5-17.5 g/dL Hematocrit 35.0 L 41.0-53.0 % Mean Corpuscular Volume 94.3 80.0-100.0 fL Mean Corpuscular Hemoglobin 29.9 28.0-32.0 pg Mean Corpuscular Hemoglobin Concent 31.7 L 32.0-36.0 g/dL Red Cell Distribution Width 19.1 H 11.8-14.3 % Platelet Count 219 140-450 10^3/uL Mean Platelet Volume 8.3 6.9-10.8 fL Neutrophils (%) (Auto) 74.1 37.0-80.0 % Lymphocytes (%) (Auto) 9.8 L 10.0-50.0 % Monocytes (%) (Auto) 10.3 0.0-12.0 % Eosinophils (%) (Auto) 5.0 0.0-7.0 % Basophils (%) (Auto) 0.8 0.0-2.0 % Neutrophils # (Auto) 4.1 1.6-8.6 10 ^3/uL Lymphocytes # (Auto) 0.5 0.4-5.4 10 ^3/uL Monocytes # (Auto) 0.6 0-1.3 10 ^3/uL Eosinophils # (Auto) 0.3 0-0.8 10 ^3/uL Basophils # (Auto) 0 0-0.2 10 ^3/uL Nucleated Red Blood Cells 0.0 % Sodium Level 140 136-145 mmol/L Potassium Level 6.7 *H 3.5-5.1 mmol/L Chloride Level 105 98-107 mmol/L Carbon Dioxide Level 22 20-31 mmol/L Anion Gap 13 5-15 Blood Urea Nitrogen 70 H 9-23 mg/dL Creatinine 10.56 *H 0.700-1.30 mg/dL Glomerular Filtration Rate Calc 5 >90 mL/min BUN/Creatinine Ratio 6.6 L 10.0-20.0 Serum Glucose 96 74-106 mg/dL Calcium Level 9.2 8.7-10.4 mg/dL Phosphorus Level Pending Magnesium Level Pending Total Bilirubin < 0.2 L 0.2-1.0 mg/dL Aspartate Amino Transferase (AST) 16 13-40 U/L Alanine Aminotransferase (ALT) 16 7-40 U/L Alkaline Phosphatase 209 H 46-116 U/L B-Type Natriuretic Peptide 2356.13 0-100 pg/mL Total Protein 7.7 5.7-8.2 g/dL Albumin 4.7 3.2-4.8 g/dL Triglycerides Level Pending Cholesterol Level Pending LDL Cholesterol Pending HDL Cholesterol Pending Vitamin B12 Level Pending Vitamin D 25-Hydroxy Pending Thyroid Stimulating Hormone (TSH) Pending Current Medications Medications (Trade) Dose Ordered Sig/Caroline Route Start Time Stop Time Status Last Admin Albuterol (Ventolin Medneb) 20 mg ONCE ONCE NEB 07/30/24 20:45 07/30/24 20:52 DC 07/30/24 21:00 Time of 1ST Reevaluation: 20:14 Reevaluation 1ST: Unchanged Patient Education/Counseling: Need For Follow Up Family Education/Counseling: No Family Present Departure 1 Departure Time of Disposition: 20:38 Impression: Primary Impression: Chest pain Additional Impressions: Hyperkalemia Anxiety End stage renal disease on dialysis Disposition: ADMITTED INPATIENT Condition: Stable Comments 54-year-old male history of end-stage renal disease on dialysis presents to emergency 2 hours left-sided chest pain radiating to back. Initial EKG. Patient is hyperkalemic. Patient's son dialysis Wednesday, , Wednesday. Patient missed dialysis yesterday. Hyperkalemia treatment initiated in the emergency department. Patient admitted for further treatment, evaluation and monitoring. Extensive evaluation was performed in attempt to identify or rule out: (See differential diagnosis section) The following tests were ordered, and results were reviewed by me and discussed with patient: (See diagnostic results section) The following test were independently interpreted by me: EKG I reviewed and agreed with the following test results read by other providers: N/A I reviewed the following notes from the pt's past medical encounters: N/A Additional information was gathered from interviewing the following independent historians: N/A Discussion of management or test interpretation with external physician/other qualified health intensive care medicine specialist: N/A Addressed one or more chronic illnesses with severe exacerbation, progression, or side effects of treatment: Stage renal disease on dialysis, an acute or chronic illness that poses a threat to life or bodily function: Hyperkalemia, chest pain Decision regarding hospitalization or escalation of hospital level of care: Risk and benefits of admission for further treatment of patient's condition was considered. Due to patient's current clinical condition, high risk of decline and poor outcome if discharged and need for further inpatient management and monitoring, patient will be admitted to the hospital. Drug therapy requiring intensive monitoring for toxicity: IV furosemide, IV sodium bicarbonate, IV calcium gluconate, IV insulin, IV dextrose Parenteral controlled substances: N/A Decision regarding elective major surgery with identified patient or procedure risk factors: N/A Decision regarding emergency major surgery: N/A Decision not to resuscitate or to de-escalate care because of poor prognosis: N/A Diagnosis or treatment significantly limited by social determinants of health: N/A Critical Care Note Critical Care Time?: No Stability Stability form required: No Heart Score Heart Score: Heart Score Response (Comments) Value History Slightly Suspicious 0 EKG Normal 0 Age 45-64 1 Risk Factors 1 or 2 risk factors 1 Troponin Normal limit 0 Total 2 I personally scribed for JIMENEZ POWER MD ([email or web address]) on 07/30/24 at 19:53. Electronically submitted by Margarito Gutierrez ([email or web address]). JIMENEZ POWER MD Jul 30, 2024 19:53
[2024-07-30 20:10] LABS: Basophils # (auto) 0 10 ^3/uL (0-0.2); Basophils % (auto) 0.8 % (0.0-2.0); Eosinophils # (auto) 0.3 10 ^3/uL (0-0.8); Hemoglobin 11.1 g/dL (13.5-17.5); Lymphocytes # (auto) 0.5 10 ^3/uL (0.4-5.4); Lymphocytes % (auto) 9.8 % (10.0-50.0); Mean Corpuscular Hemoglobin 29.9 pg (28.0-32.0); Mean Corpuscular Hgb Conc. 31.7 g/dL (32.0-36.0); Mean Corpuscular Volume 94.3 fL (80.0-100.0); Monocytes # (auto) 0.6 10 ^3/uL (0-1.3); Monocytes % (auto) 10.3 % (0.0-12.0); Neutrophils # (auto) 4.1 10 ^3/uL (1.6-8.6); Neutrophils % (auto) 74.1 % (37.0-80.0); Platelet Count (auto) 219 10^3/uL (140-450); Red Blood Cells 3.71 10^6/uL (4.5-5.90); Red Cell Distribution Width 19.1 % (11.8-14.3); White Blood Cell 5.5 10^3/uL (4.4-10.8)
[2024-07-30 20:26] LABS: Alanine Aminotransferase 16 U/L (7-40); Albumin 4.7 g/dL (3.2-4.8); Anion Gap 13 (5-15); Aspartate Aminotransferase 16 U/L (13-40); BUN/Creatinine Ratio 6.6 (10.0-20.0); Calcium 9.2 mg/dL (8.7-10.4); Carbon Dioxide 22 mmol/L (20-31); Chloride 105 mmol/L (98-107); Glucose 96 mg/dL (74-106); Sodium 140 mmol/L (136-145); Total Protein 7.7 g/dL (5.7-8.2)
[2024-07-30 20:27] LABS: Alkaline Phosphatase 209 U/L (46-116); Bilirubin, Total < 0.2 mg/dL (0.2-1.0); Blood Urea Nitrogen 70 mg/dL (9-23)
[2024-07-30 20:29] LABS: Potassium 6.7 mmol/L (3.5-5.1)
--- NOTE | 2024-07-30 20:30 | DVH ---
CHEST RADIOGRAPH Indication: cp Technique: Single frontal view of the chest was obtained COMPARISON: XY CHEST PORTABLE on DOS: 07/16/24 FINDINGS: Lines and Tubes: AICD again noted overlying left chest wall. Lungs: Clear Pleura: No effusion. No pneumothorax. Cardiomediastinal contours: Unremarkable IMPRESSION: No acute disease. No appreciable change compared to the prior chest x-ray from 07/16/2024.
[2024-07-30] MEDS: ALBUTEROL SULF 2.5 MG/0.5ML(0.5%) NEB SOLN NEB ONE (21:00)
[2024-07-30] MEDS: ALBUTEROL SULF 2.5 MG/0.5ML(0.5%) NEB SOLN ONE (21:01)
[2024-07-30] MEDS ORDERED: MORPHINE SULFATE INJ 2 MG/ml SYRG IV PRN (22:45)
[2024-07-30] MEDS ORDERED: NITROGLYCERIN 0.4 MG SL TAB SL PRN (22:45)
[2024-07-30] MEDS ORDERED: ACETAMINOPHEN 325 MG TAB PO PRN (22:45)
--- NOTE | 2024-07-30 22:45 | DVHHPRES ---
History of Present Illness Resident Creating Document: ALANA CANNON RESIDENT History of Present Illness Indio Jenkins is a 54 year old male patient who presents to ED with chief complaint of progressive retrosternal stabbing/oppressive chest pain which radiates towards left shoulder and dyspnea in variable functional class which started the day of his admission, associated with chills, and productive cough with yellow phlegm. Patient also reports nonbloody diarrhea for the past 48 hours (approximately 10 episodes in one day) of brown/yellowish stool. Per patient, he can not obtain dialysis session when he has diarrhea since they can not continuously disconnect him from the dialysis machine, patient had to miss one session of dialysis (on Wednesday). Denies palpitation, syncope, nausea, vomiting, bleeding and motor or sensitive deficits. Past medical history: Diabetes, hypertension, dyslipidemia, coronary artery disease, with ME status post PCI with 2 GINO (over 1 year ago) last angiogram 12/2023 with nonobstructive coronary disease, ischemic cardiomyopathy with systolic congestive heart failure status post placement of H[employer] RELATIONS MANAGER-D (HFrEF LVEF 20% on 2019, currently LVEF 30%). End-stage renal disease with requirement of hemodialysis sessions 3 times a week (Wednesday, and Wednesday), normocytic anemia, anxiety Surgical history: 2019 HUM[employer] RELATIONS MANAGER-D placement, PCI with a total of two stents placed, last coronary angiogram on 12/2023, AV fistula Family history: Noncontributory Social history: History of cocaine abuse. Denies tobacco, alcohol and other drug abuse (occasionally drinks alcohol) Allergies: Pneumococcal vaccine Home medication: Albuterol as needed, aspirin 81 mg p.o. daily, atorvastatin 40 mg p.o. daily, B complex, bisacodyl, furosemide 120 mg p.o. daily, hydrocodone as needed, insulin glargine 25 units SC daily, insulin lispro, lactulose, hydralazine 50 mg PO TID, metoprolol 100 mg PO daily, nifedipine 90 mg p.o. daily, sevelamer 400 mg 3 times, ticagrelor Patient seen and examined at bedside. Currently has no chest pain, he does feel anxious. Indicated Ativan. Patient has hyperkalemia, completed hyperkalemia protocol. Past Medical History Per HPI Past Surgical History Per HPI Family History Per HPI Past Social History Per HPI Review of Systems Review of Systems Per HPI Allergies: Coded Allergies: Pneumococcal Vaccines (Verified Allergy, Unknown, 07/17/24) Medications Current Medications Medications Dose Ordered Sig/[place] Route Start Time Stop Time Status Last Admin Dose Admin Acetaminophen 650 mg Q6HP PRN PO 07/30/24 22:45 UNV Ondansetron HCl 4 mg Q4HP PRN IV 07/30/24 22:45 UNV Morphine Sulfate 2 mg Q4HPRN PRN IV 07/30/24 22:45 UNV Nitroglycerin 0.4 mg Q5MINP PRN SL 07/30/24 22:45 UNV Morphine Sulfate 2 mg Q30M PRN IV 07/30/24 22:45 UNV Exam Vital Signs Vital Signs Date Time Temp Pulse Resp B/P (MAP) Pulse Ox O2 Delivery O2 Flow Rate FiO2 07/30/24 22:35 87 07/30/24 21:00 20 98 Room Air* 0 21 07/30/24 19:50 98.5 169/100 (123) 98.5 Exam Patient lying in bed, in no acute distress General: Lucid, afebrile, mucosae are moist Cardiovascular: Normal S1 and S2. No murmurs, gallops or rubs Respiratory: Normal ventilation mechanics. Clear lung sounds on auscultation Abdomen: Soft, nontender, no organomegaly, normal bowel sounds MSK/skin: Mobilizes 4 limbs. Skin is dry and warm. Left arm AV fistula Neurological: Oriented in 3 spheres. No motor no sensitive deficits. Pupils are isocoric and reactive Labs/Xrays Labs Test 07/30/24 22:40 07/30/24 19:49 Range/Units White Blood Count 5.5 4.4-10.8 10^3/uL Red Blood Count 3.71 L 4.5-5.90 10^6/uL Hemoglobin 11.1 L 13.5-17.5 g/dL Hematocrit 35.0 L 41.0-53.0 % Mean Corpuscular Volume 94.3 80.0-100.0 fL Mean Corpuscular Hemoglobin 29.9 28.0-32.0 pg Mean Corpuscular Hemoglobin Concent 31.7 L 32.0-36.0 g/dL Red Cell Distribution Width 19.1 H 11.8-14.3 % Platelet Count 219 140-450 10^3/uL Mean Platelet Volume 8.3 6.9-10.8 fL Neutrophils (%) (Auto) 74.1 37.0-80.0 % Lymphocytes (%) (Auto) 9.8 L 10.0-50.0 % Monocytes (%) (Auto) 10.3 0.0-12.0 % Eosinophils (%) (Auto) 5.0 0.0-7.0 % Basophils (%) (Auto) 0.8 0.0-2.0 % Neutrophils # (Auto) 4.1 1.6-8.6 10 ^3/uL Lymphocytes # (Auto) 0.5 0.4-5.4 10 ^3/uL Monocytes # (Auto) 0.6 0-1.3 10 ^3/uL Eosinophils # (Auto) 0.3 0-0.8 10 ^3/uL Basophils # (Auto) 0 0-0.2 10 ^3/uL Nucleated Red Blood Cells 0.0 % Sodium Level 140 136-145 mmol/L Potassium Level 6.7 *H 3.5-5.1 mmol/L Chloride Level 105 98-107 mmol/L Carbon Dioxide Level 22 20-31 mmol/L Anion Gap 13 5-15 Blood Urea Nitrogen 70 H 9-23 mg/dL Creatinine 10.56 *H 0.700-1.30 mg/dL Glomerular Filtration Rate Calc 5 >90 mL/min BUN/Creatinine Ratio 6.6 L 10.0-20.0 Serum Glucose 96 74-106 mg/dL Calcium Level 9.2 8.7-10.4 mg/dL Total Bilirubin < 0.2 L 0.2-1.0 mg/dL Aspartate Amino Transferase (AST) 16 13-40 U/L Alanine Aminotransferase (ALT) 16 7-40 U/L Alkaline Phosphatase 209 H 46-116 U/L B-Type Natriuretic Peptide 2356.13 0-100 pg/mL Total Protein 7.7 5.7-8.2 g/dL Albumin 4.7 3.2-4.8 g/dL Assessment/Plan Assessment/Plan Assessment: Severe hyperkalemia Cardiorenal syndrome type III Acute on chronic systolic CHF (ischemic cardiopathy, HFrEF, LVEF <30% on 01/2024) - Status post H[employer]ATIONS MANAGER-D placement in 2019 Severe pulmonary arterial hypertension with severe TR ESRD dependent on hemodialysis (3 sessions weekly) Coronary artery disease with history of ME - Status post PCI 2 GINO Normocytic anemia Diabetes Hypertension Anxiety Vitamin D deficiency Plan: Patient has skipped hemodialysis session due to diarrhea. He was on p.o. antibiotics (does not recall what kind of medication). Have ordered stool samples for culture and C diff toxin. Indicated to hyperkalemia treatments, with partial response. Consulted nephrology. Pending new session of hemodialysis Patient consulted for chest pain, had recent coronary angiography on 12/2023 which showed nonobstructive coronary disease at that time (has history of PCI with placement of 2 GINO). Evaluate requirement of cardiological consult. 01/2024 last echocardiogram: Bilateral atrial enlargement, severe TR, mild MR, severe pulmonary arterial hypertension and LVEF less than 30%. Continued home medication (patient is on DAPT, aspirin and ticagrelor). Goals of care discussed with patient for over 18 minutes: Full CODE STATUS Discussed plan with Dr. Staley, patient and nurses: Patient currently on telemetry status due to severe hyperkalemia, have completed two protocols of hyperkalemia treatment with partial response. Consulted Nephrology for hemodialysis. Patient has poor prognosis Plan discussed with: Patient, Other (Nurses) My Orders Orders - ALANA CANNON RESIDENT Procedure Category Date Status Time Admit ADMIT 07/30/24 Transmitted 22:38 Code Status CODE 07/30/24 Transmitted 22:38 Review Orders With JADE 07/30/24 In Process Adm. 22:38 Consistent DIET 07/31/24 Transmitted Carb(Ccho)Diabetes Breakfast Acetaminophen Tablet PHA 07/30/24 Logged (Tylenol Tablet) 22:45 Notify Of Changes JADE 07/30/24 In Process From Base 22:38 Advance Directive JADE 07/30/24 In Process 22:38 Patient Condition ORDERS 07/30/24 Transmitted 22:38 Allergies JADE 07/30/24 In Process 22:38 Ondansetron Hcl PHA 07/30/24 Logged (Zofran) 22:45 Morphine Sulfate PHA 07/30/24 Logged Injection 22:45 Nitroglycerin PHA 07/30/24 Logged Sublingual (Ntrostat 22:45 Morphine Sulfate PHA 07/30/24 Logged Injection 22:45 Oxygen By Nasal RT 07/30/24 Transmitted Cannula 22:38 Stat Ekg For Chest JADE 07/30/24 In Process Pain 22:38 Notify Of Changes [facility] 07/30/24 In Process From Base 22:38 Licensed Occupational Therapy Assistant For [facility] 07/30/24 In Process 24 Hours 22:38 Emergency Dysrhythmia [facility] 07/30/24 In Process Protocol 22:38 Rhythm Strips Once [facility] 07/30/24 In Process Every Shift 22:38 Vitamin D, 25-Hydroxy LAB 07/30/24 Logged 22:38 Vitamin B12 LAB 07/30/24 Logged 22:38 Urinalysis LAB 07/30/24 Logged 22:38 Thyroid Stimulating LAB 07/30/24 Logged Hormone 22:38 PTPTT LAB 07/30/24 Logged 22:38 Phosphorus LAB 07/30/24 Logged 22:38 Magnesium LAB 07/30/24 Logged 22:38 Lactic Acid W/ Reflex LAB 07/30/24 Logged Order 22:38 Drug Screen LAB 07/30/24 Logged 22:38 Lipid Panel LAB 07/30/24 Logged 22:38 Date of Service: Jul 30, 2024 Billing Provider: MILA STALEY MD Common Visit Codes: [id number] INP/OBS CARE (HIGH) ALANA CANNON RESIDENT Jul 30, 2024 22:45 MILA STALEY MD Jul 31, 2024 18:23
[2024-07-30 23:01] VITALS: PULSE 87; RESP 22; O2SAT 96
[2024-07-30 23:15] LABS: INR 0.99 (0.9-1.15); Partial Thromboplastin Time 27.4 SEC (24.5-34.5); Prothrombin Time 10.5 sec (9.3-11.8)
[2024-07-30 23:49] LABS: Magnesium 3.3 mg/dL (1.6-2.6); Phosphorus 8.6 mg/dL (2.4-5.1)
[2024-07-31] MEDS: ASPirin 81 mg TAB PO ONE (01:33)
[2024-07-31] MEDS: ONDANSETRON HCL 4 MG/2 ML VIAL IV ONE (01:35)
[2024-07-31] MEDS: DEXTROSE (50%) 50ML SYRG IV ONE ×2 (01:43→02:00)
[2024-07-31] MEDS: SODIUM BICARB 8.4% 50Meq/50ml SYR INJ IV ONE ×2 (01:43→02:00)
[2024-07-31] MEDS: InsuLIN REG 1unit/0.01ml Soln (100units/ml) IV ONE ×2 (01:44→02:00)
[2024-07-31] MEDS: CALCIUM GLUC 1,000mg/50ml-NS 50 ML IV ONE ×2 (01:50→02:00)
[2024-07-31] MEDS: FUROSEMIDE 40 MG/4 ML VIAL IV ONE ×2 (01:56→02:00)
[2024-07-31] MEDS: MORPHINE SULFATE INJ 2 MG/ml SYRG IV ONE (01:59)
[2024-07-31] MEDS: SODIUM ZIRCONIUM CYCL 10 GM PAK PO ONE (02:00)
[2024-07-31] MEDS: ALBUTEROL SULF 2.5 MG/0.5ML(0.5%) NEB SOLN NEB ONE (02:10)
[2024-07-31] MEDS ORDERED: ALBUTEROL SULF HFA 90MCG INH 200DOSE IN PRN (02:15)
[2024-07-31] MEDS: SODIUM CHLORIDE 0.9% 250 ML IV ONE (02:15)
[2024-07-31] MEDS ORDERED: ACETAMINOPHEN 325 MG TAB PO PRN (02:15)
[2024-07-31 02:20] VITALS: BP 165/89; PULSE 84; RESP 20; O2SAT 90
[2024-07-31] MEDS ORDERED: ALBUTEROL SULF 2.5 MG/0.5ML(0.5%) NEB SOLN NEB PRN (02:30)
[2024-07-31] MEDS: hydrALAZINE HCL 25 MG TAB PO SCH (04:00)
[2024-07-31] MEDS: LORazepam 2MG/ML-1ML VIAL IM ONE (04:28)
[2024-07-31] MEDS: INSULIN LISPRO (HUMAN) 100 UNITS/ML ML SC SCH (06:00)
--- NOTE | 2024-07-31 06:50 | ECG ---
[facility] Test Date: 2024-07-30 Test Time: 22:35:01 Pat Name: CODY SUAREZ Department: ED Room: 0287T Gender: M Technician Automated Equipment: KATERINA : 1970 Requested By: JIMENEZ POWER Order Number: [id number] Reading MD: Santy Fernandes Measurements Intervals [place] Rate: 87 P: 73 [place]: 142 QRS: 30 QRSD: 142 T: 68 QT: 396 QTc: 477 Interpretive Statements Atrial-sensed ventricular-paced rhythm No further analysis attempted due to paced rhythm Electronically Signed On 08-02-2024 20:57:10 PDT by Santy Fernandes Please click the below link to view image of tracing.
--- NOTE | 2024-07-31 06:50 | ECG ---
[facility] Test Date: 2024-07-30 Test Time: 20:36:13 Pat Name: CODY SUAREZ Department: ED Room: 0287T Gender: M Front Line Leader: KATERINA : 1970 Requested By: JIMENEZ POWER Order Number: [id number] Reading MD: Santy Fernandes Measurements Intervals [place] Rate: 82 P: 80 [place]: 155 QRS: 33 QRSD: 125 T: 77 QT: 390 QTc: 456 Interpretive Statements Atrial-sensed ventricular-paced rhythm No further analysis attempted due to paced rhythm Electronically Signed On 08-02-2024 20:57:02 PDT by Santy Fernandes Please click the below link to view image of tracing.
[2024-07-31] MEDS: ceFAZolin 2 GM/D5W50ml 50 ML IV ONE (07:15)
[2024-07-31 07:39] VITALS: O2SAT 97
[2024-07-31 08:28] LABS: COVID19 ANTIGEN SOFIA FIA NEGATIVE (NEGATIVE); Rapid Influenza A Negative (Negative); Rapid Influenza B Negative (Negative)
[2024-07-31] MEDS: ONDANSETRON HCL 4 MG/2 ML VIAL IV PRN (09:23)
[2024-07-31] MEDS: MORPHINE SULFATE INJ 2 MG/ml SYRG IV PRN (09:24)
[2024-07-31] MEDS ORDERED: diphenhdrAMINE HCL 25 MG CAP PO PRN (09:45)
[2024-07-31] MEDS: ERGOCALCIFEROL 50,000 UNIT(1.25MG) CAP PO SCH (09:52)
[2024-07-31] MEDS: SEVELAMER 800 MG TAB PO SCH (09:52)
[2024-07-31] MEDS: METOPROLOL SUCCINATE XL 50 MG TAB PO SCH (10:00)
[2024-07-31] MEDS: HEPARIN SODIUM (PORCINE) 5000 UNITS/ML 1ML VIAL SC SCH (10:00)
[2024-07-31] MEDS ORDERED: TICAGRELOR 90 MG TAB PO SCH (10:00)
[2024-07-31] MEDS: NIFEdipine ER 30 MG TAB PO SCH (10:00)
--- NOTE | 2024-07-31 10:06 | DVHINCON2 ---
Date of service: Jul 31, [address] Flores Reason for Consultation End-stage kidney disease, hyperkalemia History of Present Illness This is a 54-year-old male with history of end-stage kidney disease on hemodialysis presenting to the emergency room complaining of chest discomfort radiating to his left shoulder associated with shortness of breath. Nephrology has been consulted because patient noted to be hyperkalemic. As per the history obtained from the patient his last dialysis was on Wednesday which could not be completed as he was experiencing diarrhea. Patient has been admitted. Stool for C diff has been sent out. Awaiting workup for chest pain. Patient was given medical management of hyperkalemia. Repeat labs today showing potassium of 5.7. Patient admits to still feeling having shortness of breath. Also complaining of anxiety and generalized itching. Past Medical History End-stage kidney disease on hemodialysis Coronary artery disease status post PCI with two drug-eluting stents. Ischemic cardiomyopathy with an EF of 20% Anemia in Chronic kidney disease Anxiety Hypertension Type 2 diabetes Hyperlipidemia Hyperphosphatemia Past Surgical History AV fistula placement Family History: Arthritis G8 MOTHER Diabetes mellitus G8 MOTHER G8 SISTER Hypertension G8 MOTHER Family History Noncontributory Social History Denies any active history of smoking, alcohol or drug abuse Allergies: Coded Allergies: Pneumococcal Vaccines (Verified Allergy, Unknown, 07/17/24) Home Meds Active Scripts Diphenhydramine-Zinc Acetate (Benadryl Cream) 1 Applic Ap, 1 APPLIC TOP Q6HPRN PRN for 30 Days, #120 APPLIC Prov:ALANA CANNON RESIDENT 07/30/23 Acetaminophen (Acetaminophen) 325 Mg Tab, 650 MG PO Q6HP PRN for 30 Days, #240 TAB Prov:ALANA CANNON RESIDENT 07/30/23 Ergocalciferol (VITAMIN D 22877 UNIT) 50,000 [place], [address] UNIT PO Q7D for 30 Days, #10 CAP Prov:ALANA CANNON RESIDENT 07/30/23 Ticagrelor Base (BRILINTA) 90 Mg Tab, 60 MG PO BID, #60 TAB 5 Refills Prov:LEIGHTON HARDY MD 11/06/22 B-Complex W/ C & Folic Acid (Mayra-Evan) Tab, 1 TAB PO DAILY for 30 Days, #30 TAB Prov:LEIGHTON HARDY MD 11/06/22 Albuterol Sulfate (VENTOLIN MDI) 90 Mcg Ih, 90 MCG IN Q6HP PRN, #1 INH 180 MCG Q6H NEEDED FOR SHORTNESS OF BREATH AND WHEEZING Prov:NOAM CORREA MD 04/26/21 Metoprolol Succinate (Toprol Xl) 50 Mg Tab, 100 MG PO DAILY for 30 Days, #60 TAB Prov:NOAM CORREA MD 12/30/19 Reported Medications Lorazepam (ATIVAN TABLET) 0.5 Mg Tb, 1 TAB PO TID PRN for ANXIETY, #90 TAB 10/16/23 Patients Own Medication (PATIENTS OWN MEDICATION) ., 1 PATCH TD DAILY PTS OWN MED-OBTAIN FROM PT AND SEND TO RX DRUG: FREQ: RX# EXP: DATE DISP: TECH: RPH: 10/16/23 Sevelamer Carbonate (Sevelamer Carbonate) 800 Mg Tab, 5 TAB PO TIDWM, TAB 10/16/23 Insulin Glargine (Lantus) 100 Unit/Ml Inj, 15 UNIT SC HS, INJ 10/16/23 Trazodone Hcl (Trazodone Hcl) 150 Mg Tab, 150 MG PO for for sleep, MG 09/19/23 Nifedipine (Nifedipine Er) 90 Mg Tab, 1 TAB PO DAILY, #30 TAB 5 Refills 07/26/21 Hydralazine Hcl (Hydralazine Hcl) 50 Mg Tab, 50 MG PO TID for 30 Days, MG 07/26/21 Insulin Lispro (Human) (Humalog) 100 Unit/Ml Inj, 2-3 UNIT SC TID, INJ 12/20/19 Atorvastatin Calcium (ATORVASTATIN CALCIUM) 40 Mg Tab, 1 TAB PO HS, #30 TAB 5 Refills 03/27/19 Current Medications Current Medications Medications (Trade) Dose Ordered Sig/Caroline Route PRN Reason Start Time Stop Time Status Last Admin Acetaminophen (Tylenol Tablet) 650 mg Q6HP PRN PO PAIN SCALE 1-3 OR TEMP>100.4 07/30/24 22:45 Ondansetron HCl (Zofran) 4 mg Q4HP PRN IV NAUSEA / VOMITING 07/30/24 22:45 07/31/24 09:23 Morphine Sulfate 2 mg Q4HPRN PRN IV SEVERE PAIN (7-10 PAIN SCALE) 07/30/24 22:45 07/31/24 09:24 Nitroglycerin (Ntrostat Sublingual) 0.4 mg Q5MINP PRN SL FOR CHEST PAIN 07/30/24 22:45 Morphine Sulfate 2 mg Q30M PRN IV FOR CHEST PAIN 07/30/24 22:45 Lorazepam (Ativan Inj) 0.5 mg Q6HP PRN IV ANXIETY 07/30/24 23:00 Heparin Sodium (Porcine) 5,000 units Q12HR SC 07/31/24 10:00 Acetaminophen (Tylenol Tablet) 650 mg Q6HP PRN PO PAIN SCALE 7 THRU 10 07/31/24 02:15 Albuterol (Ventolin Hfa) 90 mcg Q6HP PRN IN SHORTNESS OF BREATH 07/31/24 02:15 07/31/24 02:18 DC Zinc Acetate/ Diphenhydramine (Benadryl Cream) 1 applic Q6HPRN PRN TOP FOR ITCHING 07/31/24 02:15 Ergocalciferol (Vitamin D 50,000 Unit) 50,000 unit Q7D PO 07/31/24 09:00 07/31/24 09:52 Insulin Glargine (Lantus) 15 units HS SC 07/31/24 22:00 Insulin Human Lispro (HumaLOG) 2 units TID SC 07/31/24 06:00 Metoprolol Succinate (Toprol Xl) 100 mg DAILY PO 07/31/24 10:00 Ticagrelor (Brilinta) 60 mg BID PO 07/31/24 10:00 Atorvastatin Calcium (Lipitor) 40 mg HS PO 07/31/24 22:00 Multivit/Ca Carb/ B Cmplx/FA/Prenat (Nephro-Evan Tablet) 1 tab DAILY PO 07/31/24 10:00 Hydralazine HCl (Apresoline Tablet) 50 mg TID PO 07/31/24 06:00 07/31/24 04:00 Nifedipine (Procardia Xl (Time-Release)) 90 mg DAILY PO 07/31/24 10:00 Sevelamer HCl (Renagel) 2,400 mg TIDWM PO 07/31/24 08:00 07/31/24 09:52 Albuterol (Ventolin Medneb) 2.5 mg Q6HPRN PRN NEB SHORTNESS OF BREATH 07/31/24 02:30 Diphenhydramine HCl (Benadryl Capsule) 25 mg Q6HP PRN PO FOR ITCHING 07/31/24 09:45 Review of Systems 12 point review of system negative except as stated in the HPI Vital Signs Vital Signs Date Time Temp Pulse Resp B/P (MAP) Pulse Ox O2 Delivery O2 Flow Rate FiO2 07/31/24 09:24 83 22 169/91 07/31/24 08:00 97.8 96 97.8 07/31/24 08:00 Nasal Cannula* 2 28 Physical Exam Awake alert oriented x3 HEENT: Normocephalic, no JVD Lungs: Bilateral good air entry CVS: S1, S2 regular rate rhythm Abdomen: Soft, bowel sounds present STREET COMMISSIONER: No focal deficits Extremities: No edema Labs/Diagnostic Data Labs Test 07/31/24 09:29 07/31/24 07:35 07/31/24 04:43 07/30/24 23:30 Range/Units POC Glucose 139 H 70-106 mg/dl Influenza Type A Antigen Negative Negative Influenza Type B Antigen Negative Negative SARS-CoV-2 Antigen (Rapid) Negative NEGATIVE Potassium Level 5.7 *H 3.5-5.1 mmol/L Lactic Acid Level 1.0 0.4-2.0 mmol/L Test 07/30/24 22:40 07/30/24 19:49 Range/Units Prothrombin Time 10.5 9.3-11.8 sec Prothrombin Time INR 0.99 0.9-1.15 Activated Partial Thromboplast Time 27.4 24.5-34.5 SEC Troponin I High Sensitivity 31 </=54 ng/L White Blood Count 5.5 4.4-10.8 10^3/uL Red Blood Count 3.71 L 4.5-5.90 10^6/uL Hemoglobin 11.1 L 13.5-17.5 g/dL Hematocrit 35.0 L 41.0-53.0 % Mean Corpuscular Volume 94.3 80.0-100.0 fL Mean Corpuscular Hemoglobin 29.9 28.0-32.0 pg Mean Corpuscular Hemoglobin Concent 31.7 L 32.0-36.0 g/dL Red Cell Distribution Width 19.1 H 11.8-14.3 % Platelet Count 219 140-450 10^3/uL Mean Platelet Volume 8.3 6.9-10.8 fL Neutrophils (%) (Auto) 74.1 37.0-80.0 % Lymphocytes (%) (Auto) 9.8 L 10.0-50.0 % Monocytes (%) (Auto) 10.3 0.0-12.0 % Eosinophils (%) (Auto) 5.0 0.0-7.0 % Basophils (%) (Auto) 0.8 0.0-2.0 % Neutrophils # (Auto) 4.1 1.6-8.6 10 ^3/uL Lymphocytes # (Auto) 0.5 0.4-5.4 10 ^3/uL Monocytes # (Auto) 0.6 0-1.3 10 ^3/uL Eosinophils # (Auto) 0.3 0-0.8 10 ^3/uL Basophils # (Auto) 0 0-0.2 10 ^3/uL Nucleated Red Blood Cells 0.0 % Sodium Level 140 136-145 mmol/L Chloride Level 105 98-107 mmol/L Carbon Dioxide Level 22 20-31 mmol/L Anion Gap 13 5-15 Blood Urea Nitrogen 70 H 9-23 mg/dL Creatinine 10.56 *H 0.700-1.30 mg/dL Glomerular Filtration Rate Calc 5 >90 mL/min BUN/Creatinine Ratio 6.6 L 10.0-20.0 Serum Glucose 96 74-106 mg/dL Calcium Level 9.2 8.7-10.4 mg/dL Phosphorus Level 8.6 H 2.4-5.1 mg/dL Magnesium Level 3.3 H 1.6-2.6 mg/dL Total Bilirubin < 0.2 L 0.2-1.0 mg/dL Aspartate Amino Transferase (AST) 16 13-40 U/L Alanine Aminotransferase (ALT) 16 7-40 U/L Alkaline Phosphatase 209 H 46-116 U/L B-Type Natriuretic Peptide 2356.13 0-100 pg/mL Total Protein 7.7 5.7-8.2 g/dL Albumin 4.7 3.2-4.8 g/dL Triglycerides Level 56 < 150 mg/dL Cholesterol Level 133 < 200 mg/dL LDL Cholesterol 30 < 100 mg/dL HDL Cholesterol 86 H 40-59 mg/dL Thyroid Stimulating Hormone (TSH) 0.61 0.55-4.78 uIU/mL Assessment End-stage kidney disease on hemodialysis Hyperkalemia Chest pain History of coronary artery disease status post PCI Type 2 diabetes Hypertension Hyperlipidemia Anxiety Plan/Recommendation Hemodialysis today with a 1 K bath. We will follow up on BMP. Benadryl p.r.n. for itching. Continue with home medications for blood pressure. Cardiology evaluation for chest pain. [ Patient had recent coronary angiography on 12/2023 which showed nonobstructive coronary disease at that time (has history of PCI with placement of 2 GINO). 01/2024 last echocardiogram: Bilateral atrial enlargement, severe TR, mild MR, severe pulmonary arterial hypertension and LVEF less than 30%.] Plan discussed with: Patient MAXI LEWIS MD Jul 31, 2024 10:06
[2024-07-31] MEDS: SODIUM CHL 0.9% 1000 ML BAG XX ONE (10:15)
[2024-07-31] MEDS: diphenhdrAMINE HCL 50 MG/1 ML VL IV ONE (10:39)
[2024-07-31] MEDS: B-COMPLEX W/ C & FOLIC ACID(NEPHROVITE TAB) PO SCH (10:43)
[2024-07-31] MEDS: TICAGRELOR 60 MG TAB PO SCH (10:48)
--- NOTE | 2024-07-31 13:17 | DVHPNRES ---
Progress Note Date Seen: Jul 31, 2024 Resident Creating Document: CELSO HARRIS MICHAEL Has the PT tested + for MRSA If YES, has PT been informed?: No Medical Necessity Reason Pt with a Central, PICC or Fol: No Subjective Review of Systems This is a 54-year-old male with past medical history of hypertension, diabetes type 2, hyperlipidemia, ESRD on maintenance hemodialysis (Mondays/Wednesdays/Fridays, missed last HD on Wednesday), heart failure with reduced ejection fraction, CAD (status post PCI) came to the hospital due to shortness of breaths and chest pain since 1 day. Chest pain is localized on left sided with no radiation, constant, pressure-like in nature, 8/10, reproducible with touching and taking deep inspiration. He also reports productive cough with yellow phlegm, back pain, nausea. Patient also reports nonbloody diarrhea for the past 48 hours (approximately 10 episodes in one day) of brown/yellowish stool. Per patient, he can not obtain dialysis session when he has diarrhea since they can not continuously disconnect him from the dialysis machine, patient had to miss one session of dialysis (on Wednesday). He denies fever, or any recent sick contact. on December 20, 2023 at [facility], due to chest pain, underwent left heart catheterization, found to have small-vessel disease and was recommended aggressive medical management by Dr. Campbell PMHx: hypertension, diabetes type 2, hyperlipidemia, ESRD on maintenance hemodialysis (Mondays/Wednesdays/Fridays, missed last HD on Wednesday), heart failure with reduced ejection fraction, CAD (status post PCI) PSHx: PCI, status post pacemaker Family history: Noncontributory Social history: Lives in a Van, History of cocaine abuse. Denies tobacco, alcohol and other drug abuse (occasionally drinks alcohol) Home medication: Albuterol as needed, aspirin 81 mg p.o. daily, atorvastatin 40 mg p.o. daily, B complex, bisacodyl, furosemide 120 mg p.o. daily, hydrocodone as needed, insulin glargine 25 units SC daily, insulin lispro, lactulose, hydralazine 50 mg PO TID, metoprolol 100 mg PO daily, nifedipine 90 mg p.o. daily, sevelamer 400 mg 3 times, ticagrelor Allergic history: Pneumonia vaccine Patient seen and examined at the bedside. Patient is still complaining of chest pain and shortness of breathe. Patient reports: Feels better Changes from previous H/P or p: Changes Objective vital signs Vital Sign Date Time Temp Pulse Resp B/P (MAP) Pulse Ox O2 Delivery O2 Flow Rate FiO2 07/31/24 12:50 73 07/31/24 12:00 14 159/84 (109) 97 07/31/24 08:00 97.8 97.8 07/31/24 08:00 Nasal Cannula* 2 28 medications Current Medications Medications Dose Ordered Sig/Caroline Route Start Time Stop Time Status Last Admin Dose Admin Acetaminophen 650 mg Q6HP PRN PO 07/30/24 22:45 Ondansetron HCl 4 mg Q4HP PRN IV 07/30/24 22:45 07/31/24 09:23 4 MG Morphine Sulfate 2 mg Q4HPRN PRN IV 07/30/24 22:45 07/31/24 09:24 2 MG Nitroglycerin 0.4 mg Q5MINP PRN SL 07/30/24 22:45 Morphine Sulfate 2 mg Q30M PRN IV 07/30/24 22:45 Lorazepam 0.5 mg Q6HP PRN IV 07/30/24 23:00 Heparin Sodium (Porcine) 5,000 units Q12HR SC 07/31/24 10:00 Acetaminophen 650 mg Q6HP PRN PO 07/31/24 02:15 Hold Zinc Acetate/ Diphenhydramine 1 applic Q6HPRN PRN TOP 07/31/24 02:15 Ergocalciferol 50,000 unit Q7D PO 07/31/24 09:00 07/31/24 09:52 50,000 UNIT Insulin Glargine 15 units HS SC 07/31/24 22:00 Insulin Human Lispro 2 units TID SC 07/31/24 06:00 Metoprolol Succinate 100 mg DAILY PO 07/31/24 10:00 Atorvastatin Calcium 40 mg HS PO 07/31/24 22:00 Multivit/Ca Carb/ B Cmplx/FA/Prenat 1 tab DAILY PO 07/31/24 10:00 07/31/24 10:43 1 TAB Hydralazine HCl 50 mg TID PO 07/31/24 06:00 07/31/24 04:00 50 MG Nifedipine 90 mg DAILY PO 07/31/24 10:00 Sevelamer HCl 2,400 mg TIDWM PO 07/31/24 08:00 07/31/24 09:52 2,400 MG Albuterol 2.5 mg Q6HPRN PRN NEB 07/31/24 02:30 Diphenhydramine HCl 25 mg Q6HP PRN PO 07/31/24 10:15 Ticagrelor 60 mg BID PO 07/31/24 10:48 Examination General Appearance: Alert, Oriented X3, Cooperative, No acute distress HEENT: Atraumatic, PERRLA, EOMI, Mucous membrane moist/pink Respiratory: Bilateral lower zone crackles Cardiovascular: Regular rate, Normal S1, Normal S2, No murmurs, no chest wall tenderness Abdominal: Normal bowel sounds, Soft, No tenderness, No hepatospenomegaly, No masses Extremities: No clubbing, No cyanosis, No edema, Normal pulses, No tenderness/swelling Skin: No rashes, No breakdown, No significant lesion Neuro: Normal gait, Normal speech, Strength at 5/5 X4 ext, Normal tone, Sensation intact, Cranial nerves 3-12 NL, Reflexes 2+ Psych/Mental Status: Mental status NL, Mood NL laboratory and microbiology Laboratory Tests 07/31/24 04:43 07/30/24 19:49 Test 07/30/24 19:49 Range/Units Serum Glucose 96 74-106 mg/dL Labs and/or images reviewed: Labs reviewed by me, Image(s) reviewed by me Problem List/Assessment/Plan Problem List/Assessment/Plan Acute hypoxic respiratory failure, likely due to CHF exacerbation/volume overload Acute on chronic systolic heart failure ESRD on maintenance hemodialysis, missed last HD on Wednesday Volume overload, due to missed HD Hyperkalemia, likely due to missed HD Generalized pruritus/hives, likely due to ESRD EKGs shows normal sinus rhythm with no acute ST or T-wave changes Trop I serial is within normal limits Echocardiogram from 01/30/2025, shows EF < 30% Chest x-ray shows cardiomegaly with pacemaker in-situ Consulted nephrology Continue home medicine, metoprolol, hydralazine and nifedipine, sevelamer Breathing treatment Hyperkalemia protocol given Potassium trend Diphenhydramine Mild anemia, likely due to ESRD Diabetes type 2, continue Lantus and insulin regular according to mild SS Dyslipidemia, continue atorvastatin Coronary artery disease, status post PCI Status post pacemaker History of asthma, continue breathing treatment Gastroenteritis Stool studies, C diff DIET: Diabetic diet DVT PROPHYLAXIS: Heparin 5000 units b.i.d. GI PROPHYLAXIS:: Protonix CODE STATUS: Goal of care discussed for more than 18 minutes, full code DISPOSITION: Telemetry Patient's status and plan discussed with the patient. Case discussed with Dr. Baron Plan discussed with: Patient, Other (RN) Date of Service: Jul 31, 2024 Billing Provider: JESSY MORA MD Common Visit Codes: [id number] INP/OBS CARE(HIGH) KIMBERLYBINSCOUT RESDIENT Jul 31, 2024 13:17 JESSY MORA MD Aug 09, 2024 01:31
[2024-07-31] MEDS: LORazepam 2MG/ML-1ML VIAL IV PRN (13:38)
[2024-07-31 19:40] VITALS: O2SAT 97
[2024-07-31] MEDS: ATORVASTATIN 20 MG TAB PO SCH (21:33)
[2024-07-31] MEDS: INSULIN LANTUS (GLARGINE) 1 /0.01ml (100units/ml) SC SCH (21:39)
[2024-07-31 22:29] VITALS: BP 169/50; PULSE 85; RESP 20; TEMP 97.6; O2SAT 97
[2024-08-01] VITALS (16 sets, daily range): BP systolic 147–166; BP diastolic 78–96; PULSE 75–99; RESP 16–20; TEMP 97.8–98.1; O2SAT 95–100
[2024-08-01] MEDS: diphenhdrAMINE HCL 25 MG CAP PO PRN (00:58)
[2024-08-01] MEDS: hydrALAZINE HCL 20 MG/ML VL IV ONE (01:30)
[2024-08-01] MEDS: CALAMINE TOPical LOTION180 ML TOP ONE (02:00)
--- NOTE | 2024-08-01 03:51 | ECG ---
[facility] Test Date: 2024-08-01 Test Time: 03:49:45 Pat Name: CODY SUAREZ Department: Room: 0287T A Gender: M Lump Inspector: [id number] : 1970 Requested By: CELSO HARRIS Order Number: [id number] Reading MD: Santy Fernandes Measurements Intervals [place] Rate: 81 P: 55 [place]: 57 QRS: -36 QRSD: 88 T: 141 QT: 397 QTc: 461 Interpretive Statements Atrial-sensed ventricular-paced complexes No further analysis attempted due to paced rhythm Baseline wander in lead(s) V5 Electronically Signed On 08-02-2024 20:34:58 PDT by Santy Fernandes Please click the below link to view image of tracing.
[2024-08-01] MEDS ORDERED: HYDR-4798 PO (05:43)
[2024-08-01 07:39] LABS: Basophils # (auto) 0 10 ^3/uL (0-0.2); Basophils % (auto) 0.8 % (0.0-2.0); Eosinophils # (auto) 0.3 10 ^3/uL (0-0.8); Eosinophils % (auto) 6.5 % (0.0-7.0); Hematocrit 30.5 % (41.0-53.0); Lymphocytes # (auto) 0.4 10 ^3/uL (0.4-5.4); Lymphocytes % (auto) 8.4 % (10.0-50.0); Mean Corpuscular Hemoglobin 30.6 pg (28.0-32.0); Mean Corpuscular Volume 92.8 fL (80.0-100.0); Monocytes # (auto) 0.4 10 ^3/uL (0-1.3); Monocytes % (auto) 7.2 % (0.0-12.0); Neutrophils # (auto) 3.8 10 ^3/uL (1.6-8.6); Neutrophils % (auto) 77.1 % (37.0-80.0); Platelet Count (auto) 187 10^3/uL (140-450); Red Blood Cells 3.29 10^6/uL (4.5-5.90); Red Cell Distribution Width 19.3 % (11.8-14.3); White Blood Cell 4.9 10^3/uL (4.4-10.8)
[2024-08-01 07:51] LABS: Alanine Aminotransferase 10 U/L (7-40); Anion Gap 16 (5-15); BUN/Creatinine Ratio 6.4 (10.0-20.0); Calcium 9.6 mg/dL (8.7-10.4); Carbon Dioxide 25 mmol/L (20-31); Sodium 138 mmol/L (136-145); Total Protein 6.9 g/dL (5.7-8.2)
[2024-08-01 07:52] LABS: Albumin 4.2 g/dL (3.2-4.8); Aspartate Aminotransferase 15 U/L (13-40)
[2024-08-01 08:01] LABS: Alkaline Phosphatase 141 U/L (46-116); Bilirubin, Total 0.2 mg/dL (0.2-1.0); Blood Urea Nitrogen 57 mg/dL (9-23); Chloride 97 mmol/L (98-107); Glucose 56 mg/dL (74-106)
--- NOTE | 2024-08-01 08:03 | DVHPN2 ---
Progress Note - Dictate Date Seen: Aug 01, 2024 Has the PT tested + for MRSA If YES, has PT been informed?: No Medical Necessity Reason Pt with a Central, PICC or Fol: No Subjective Dialyzed yesterday with UF of 3 liters vital signs Vital Sign Date Time Temp Pulse Resp B/P (MAP) Pulse Ox O2 Delivery O2 Flow Rate FiO2 08/01/24 06:41 95 Nasal Cannula* 2 28 08/01/24 05:37 160/92 08/01/24 05:37 98 19 08/01/24 05:00 98.1 98.1 Total Intake and Output 07/31/24 07/31/24 08/01/24 15:00 23:00 07:00 Intake Total 340 ml Balance 340 ml medications Current Medications Medications Dose Ordered Sig/Caroline Route Start Time Stop Time Status Last Admin Dose Admin Acetaminophen 650 mg Q6HP PRN PO 07/30/24 22:45 Ondansetron HCl 4 mg Q4HP PRN IV 07/30/24 22:45 07/31/24 09:23 4 MG Morphine Sulfate 2 mg Q4HPRN PRN IV 07/30/24 22:45 08/01/24 05:37 2 MG Nitroglycerin 0.4 mg Q5MINP PRN SL 07/30/24 22:45 Morphine Sulfate 2 mg Q30M PRN IV 07/30/24 22:45 Lorazepam 0.5 mg Q6HP PRN IV 07/30/24 23:00 07/31/24 21:33 0.5 MG Heparin Sodium (Porcine) 5,000 units Q12HR SC 07/31/24 10:00 07/31/24 21:34 5,000 UNITS Acetaminophen 650 mg Q6HP PRN PO 07/31/24 02:15 Hold Zinc Acetate/ Diphenhydramine 1 applic Q6HPRN PRN TOP 07/31/24 02:15 Ergocalciferol 50,000 unit Q7D PO 07/31/24 09:00 07/31/24 09:52 50,000 UNIT Insulin Glargine 15 units HS SC 07/31/24 22:00 07/31/24 21:39 15 UNITS Insulin Human Lispro 2 units TID SC 07/31/24 06:00 07/31/24 21:40 2 UNITS Metoprolol Succinate 100 mg DAILY PO 07/31/24 10:00 Atorvastatin Calcium 40 mg HS PO 07/31/24 22:00 07/31/24 21:33 40 MG Multivit/Ca Carb/ B Cmplx/FA/Prenat 1 tab DAILY PO 07/31/24 10:00 07/31/24 10:43 1 TAB Hydralazine HCl 50 mg TID PO 07/31/24 06:00 08/01/24 05:37 50 MG Nifedipine 90 mg DAILY PO 07/31/24 10:00 Sevelamer HCl 2,400 mg TIDWM PO 07/31/24 08:00 07/31/24 18:30 2,400 MG Albuterol 2.5 mg Q6HPRN PRN NEB 07/31/24 02:30 Diphenhydramine HCl 25 mg Q6HP PRN PO 07/31/24 10:15 08/01/24 00:58 25 MG Ticagrelor 60 mg BID PO 07/31/24 10:48 objective Awake alert oriented x3 HEENT: Normocephalic, no JVD Lungs: Bilateral good air entry CVS: S1, S2 regular rate rhythm Abdomen: Soft, bowel sounds present ANALYSIS EVALUATOR: No focal deficits Extremities: No edema laboratory and microbiology Laboratory Tests 08/01/24 06:07 Test 08/01/24 06:07 Range/Units Serum Glucose Pending Problem List End-stage kidney disease on hemodialysis Hyperkalemia Chest pain History of coronary artery disease status post PCI Type 2 diabetes Hypertension Hyperlipidemia Anxiety Assessment/Plan HD today Increase Hydralazine to 100 mg TID Benadryl p.r.n. for itching. Plan discussed with: Patient MAXI LEWIS MD Aug 01, 2024 08:02
[2024-08-01 08:06] LABS: Potassium 5.9 mmol/L (3.5-5.1)
--- NOTE | 2024-08-01 09:01 | DVHDSRES ---
Discharge Summary Date of Admission Resident Creating Document: CELSO HARRIS RESDIENT Jul 30, 2024 at 22:38 Date of Discharge: Aug 01, 2024 Admitting Diagnosis Shortness of breaths Labs/Diagnostic Data: Laboratory Results Test 08/01/24 06:07 08/01/24 06:03 07/31/24 07:35 07/30/24 23:30 White Blood Count 4.9 10^3/uL (4.4-10.8) Red Blood Count 3.29 10^6/uL (4.5-5.90) Hemoglobin 10.0 g/dL (13.5-17.5) Hematocrit 30.5 % (41.0-53.0) Mean Corpuscular Volume 92.8 fL (80.0-100.0) Mean Corpuscular Hemoglobin 30.6 pg (28.0-32.0) Mean Corpuscular Hemoglobin Concent 33.0 g/dL (32.0-36.0) Red Cell Distribution Width 19.3 % (11.8-14.3) Platelet Count 187 10^3/uL (140-450) Mean Platelet Volume 8.5 fL (6.9-10.8) Neutrophils (%) (Auto) 77.1 % (37.0-80.0) Lymphocytes (%) (Auto) 8.4 % (10.0-50.0) Monocytes (%) (Auto) 7.2 % (0.0-12.0) Eosinophils (%) (Auto) 6.5 % (0.0-7.0) Basophils (%) (Auto) 0.8 % (0.0-2.0) Neutrophils # (Auto) 3.8 10 ^3/uL (1.6-8.6) Lymphocytes # (Auto) 0.4 10 ^3/uL (0.4-5.4) Monocytes # (Auto) 0.4 10 ^3/uL (0-1.3) Eosinophils # (Auto) 0.3 10 ^3/uL (0-0.8) Basophils # (Auto) 0 10 ^3/uL (0-0.2) Nucleated Red Blood Cells 0.0 % Sodium Level 138 mmol/L (136-145) Potassium Level 5.9 mmol/L (3.5-5.1) Chloride Level 97 mmol/L (98-107) Carbon Dioxide Level 25 mmol/L (20-31) Anion Gap 16 (5-15) Blood Urea Nitrogen 57 mg/dL (9-23) Creatinine 8.93 mg/dL (0.700-1.30) Glomerular Filtration Rate Calc 7 mL/min (>90) BUN/Creatinine Ratio 6.4 (10.0-20.0) Serum Glucose 56 mg/dL (74-106) Calcium Level 9.6 mg/dL (8.7-10.4) Total Bilirubin 0.2 mg/dL (0.2-1.0) Aspartate Amino Transferase (AST) 15 U/L (13-40) Alanine Aminotransferase (ALT) 10 U/L (7-40) Alkaline Phosphatase 141 U/L (46-116) Total Protein 6.9 g/dL (5.7-8.2) Albumin 4.2 g/dL (3.2-4.8) POC Glucose 94 mg/dl (70-106) Influenza Type A Antigen Negative (Negative) Influenza Type B Antigen Negative (Negative) SARS-CoV-2 Antigen (Rapid) Negative (NEGATIVE) Lactic Acid Level 1.0 mmol/L (0.4-2.0) Test 07/30/24 22:40 07/30/24 19:49 Prothrombin Time 10.5 sec (9.3-11.8) Prothrombin Time INR 0.99 (0.9-1.15) Activated Partial Thromboplast Time 27.4 SEC (24.5-34.5) Troponin I High Sensitivity 31 ng/L (</=54) Phosphorus Level 8.6 mg/dL (2.4-5.1) Magnesium Level 3.3 mg/dL (1.6-2.6) B-Type Natriuretic Peptide 2356.13 pg/mL (0-100) Triglycerides Level 56 mg/dL (< 150) Cholesterol Level 133 mg/dL (< 200) LDL Cholesterol 30 mg/dL (< 100) HDL Cholesterol 86 mg/dL (40-59) Vitamin B12 Level 339 pg/mL (211-911) Vitamin D 25-Hydroxy 39.2 ng/mL (30.0-100) Thyroid Stimulating Hormone (TSH) 0.61 uIU/mL (0.55-4.78) Other Laboratory Tests 08/01/24 06:07 Brief Hx & Hospital Course: This is a 54-year-old male with past medical history of hypertension, diabetes type 2, hyperlipidemia, ESRD on maintenance hemodialysis (Mondays/Wednesdays/Fridays, missed last HD on Wednesday), heart failure with reduced ejection fraction, CAD (status post PCI) came to the hospital due to shortness of breaths and chest pain since 1 day. Chest pain is localized on left sided with no radiation, constant, pressure-like in nature, 8/10, reproducible with touching and taking deep inspiration. He also reports productive cough with yellow phlegm, back pain, nausea. Patient also reports nonbloody diarrhea for the past 48 hours (approximately 10 episodes in one day) of brown/yellowish stool. Per patient, he can not obtain dialysis session when he has diarrhea since they can not continuously disconnect him from the dialysis machine, patient had to miss one session of dialysis (on Wednesday). He denies fever, or any recent sick contact. on December 20, 2023 at [facility], due to chest pain, underwent left heart catheterization, found to have small-vessel disease and was recommended aggressive medical management by Dr. Campbell PMHx: hypertension, diabetes type 2, hyperlipidemia, ESRD on maintenance hemodialysis (Mondays/Wednesdays/Fridays, missed last HD on Wednesday), heart failure with reduced ejection fraction, CAD (status post PCI) PSHx: PCI, status post pacemaker Family history: Noncontributory Social history: Lives in a Van, History of cocaine abuse. Denies tobacco, alcohol and other drug abuse (occasionally drinks alcohol) Home medication: Albuterol as needed, aspirin 81 mg p.o. daily, atorvastatin 40 mg p.o. daily, B complex, bisacodyl, furosemide 120 mg p.o. daily, hydrocodone as needed, insulin glargine 25 units SC daily, insulin lispro, lactulose, hydralazine 50 mg PO TID, metoprolol 100 mg PO daily, nifedipine 90 mg p.o. daily, sevelamer 400 mg 3 times, ticagrelor Allergic history: Pneumonia vaccine Hospital course: Patient was admitted at the line of acute on chronic systolic heart failure due to volume overload/missed HD. Due to hyperkalemia the patient was given hyperkalemia protocol (calcium gluconate, insulin with glucose, and nebulized with albuterol, due to anuria, Lasix was not given) and subsequently underwent dialysis and potassium decreased to 5.7. Nephrology was consulted, performed hemodialysis 2 times and increased hydralazine dose 450 mg to 100 mg t.i.d.. Due to shortness of breaths/and dropped oxygen saturation, oxygen was given through nasal cannula. Home medication including metoprolol, hydralazine, nifedipine and sevelamer. Home medicine for diabetes injection Lantus and insulin regular according to mild SS were given. Due to generalized hives/pruritus diphenhydramine was given. On 08/01/2024, the patient was feeling better since admission. Patient was maintaining oxygen saturation on room air, shortness of breaths and chest pain were improved and had no active complaint. Discharge plan discussed with the patient and the patient was discharged home. Discharge plan: Increase dose of hydralazine 50 mg t.i.d. 200 mg t.i.d. Continue rest of home meds Follow up with the PCP within 1 week of the discharge. Follow up with nephrology/hemodialysis on outpatient basis. Condition at Discharge: Stable Final Diagnosis/Problems List Acute hypoxic respiratory failure, likely due to CHF exacerbation/volume overload Acute on chronic systolic heart failure likely due to volume overload Shortness of breaths/chest pain, likely due to acute systolic heart failure ESRD on maintenance hemodialysis, missed last HD on Wednesday Volume overload, due to missed HD Hyperkalemia, likely due to missed HD Generalized pruritus/hives, likely due to ESRD Mild anemia, likely due to ESRD Diabetes type 2, continue Lantus and insulin regular according to mild SS Dyslipidemia, continue atorvastatin Coronary artery disease, status post PCI Status post pacemaker History of asthma, continue breathing treatment Gastroenteritis Hyperlipidemia Anxiety Cardiorenal syndrome type III Severe pulmonary arterial hypertension with severe TR Vitamin D deficiency Discharge Disposition: Home Discharge Instruct/Medications Diet: Renal Activity: No Restrictions, As Tolerated Follow Up/Referral: Follow up with the PCP within 1 week of the discharge. Follow up with the Nephrology/hemodialysis. Medications: Continue home meds Discharge Statement: "Patient was advised to return to the ER or call 911 if any headaches, dizziness, shortness of breath, chest pain, abdominal pain, bleeding, fevers, or worsening of medical condition. Patient was counseled about treatment plan, medications, possible side effects, patientverbalized understanding. All questions were answered to the best of my ability. This discharge took greater then 30 minutes in planning, reviewing documentation, counseling the patient, and discussing with other team members." ASSESSMENT ASSESSMENT Assessment Acute on chronic systolic heart failure due to volume overload/ESRD Date of Service: Aug 01, 2024 Billing Provider: JESSY MORA MD Common Visit Codes: 79987-EDK/OBS DISCH DAY >30min CELSO HARRIS RESDIENT Aug 01, 2024 09:01 JESSY MORA MD Aug 09, 2024 01:48
[2024-08-01] MEDS: ALBUTEROL SULF 2.5 MG/0.5ML(0.5%) NEB SOLN NEB ONE ×2 (09:35→15:01)
[2024-08-01] MEDS ORDERED: SODIUM CHL 0.9% 1000 ML BAG XX ONE (09:45)
[2024-08-01] MEDS: CALCIUM CHL 100MG/ML 1,000 MG in D5W 5% 100 ML IV ONE (10:52)
[2024-08-01] MEDS: hydrALAZINE HCL 25 MG TAB PO SCH (14:00)
[2024-08-01] MEDS: diphenhdrAMINE-ZINC ACETATE 1 APPLIC APPL TOP PRN (14:07)
[2024-08-01] MEDS ORDERED: CALCIUM GLUC 1,000mg/50ml-NS 50 ML IV ONE (14:15)
[2024-08-01] MEDS ORDERED: SODIUM BICARB 8.4% 50Meq/50ml SYR INJ IV ONE (14:15)
[2024-08-01] MEDS ORDERED: SODIUM ZIRCONIUM CYCL 10 GM PAK PO ONE ×3 (14:15)
[2024-08-01] MEDS ORDERED: InsuLIN REG 1unit/0.01ml Soln (100units/ml) IV ONE (14:15)
[2024-08-01] MEDS ORDERED: DEXTROSE (50%) 50ML SYRG IV ONE (14:15)
[2024-08-01] MEDS ORDERED: [UNRECOGNIZED DRUG - CODE] PO (14:54)
[2024-08-01] MEDS ORDERED: SEVE800T8 PO (17:24)
[2024-08-01] MEDS: POTASSIUM CHL 10 Meq TABLET PO ONE (20:45)
[2024-08-16] MEDS ORDERED: TRAZ-181 PO (10:12)
== END 2024-08-01 21:45 | disposition home or self-care (01) | DRG 133 ==
LOC: ER 19:33 → OVERFLOW 22:38 → TELE-WESTW 22:42
PROVIDERS: ADMIT Student in an Organized Health Care Education/Training Program; ATTEND Emergency Medicine
PROC: 5A1D70Z Performance of Urinary Filtration, Intermittent, Less than 6 Hours Per Day (ICD-10-PCS; principal; 2024-07-31)
PROC: 5A1D70Z Performance of Urinary Filtration, Intermittent, Less than 6 Hours Per Day (ICD-10-PCS; 2024-08-01)
DX: J96.01 Acute respiratory failure with hypoxia (principal); I50.23 Acute on chronic systolic (congestive) heart failure; I27.21 Secondary pulmonary arterial hypertension; N18.6 End stage renal disease; D63.1 Anemia in chronic kidney disease; E83.39 Other disorders of phosphorus metabolism; E87.5 Hyperkalemia; I13.2 Hypertensive heart and chronic kidney disease with heart failure and with stage 5 chronic kidney disease, or end stage renal disease; E87.70 Fluid overload, unspecified; E11.22 Type 2 diabetes mellitus with diabetic chronic kidney disease; F41.9 Anxiety disorder, unspecified; F17.210 Nicotine dependence, cigarettes, uncomplicated; I25.10 Atherosclerotic heart disease of native coronary artery without angina pectoris; I25.5 Ischemic cardiomyopathy; F14.10 Cocaine abuse, uncomplicated; I08.1 Rheumatic disorders of both mitral and tricuspid valves; K52.9 Noninfective gastroenteritis and colitis, unspecified; L29.9 Pruritus, unspecified; F32.A Depression, unspecified; D64.9 Anemia, unspecified; E78.5 Hyperlipidemia, unspecified; Z20.822 Contact with and (suspected) exposure to COVID-19; Z88.7 Allergy status to serum and vaccine; Z79.1 Long term (current) use of non-steroidal anti-inflammatories (NSAID); Z79.899 Other long term (current) drug therapy; Z79.4 Long term (current) use of insulin; Z79.891 Long term (current) use of opiate analgesic; Z99.2 Dependence on renal dialysis; Z98.61 Coronary angioplasty status; Z83.3 Family history of diabetes mellitus; Z82.49 Family history of ischemic heart disease and other diseases of the circulatory system; Z95.0 Presence of cardiac pacemaker
CPT/HCPCS: 36415; 71045; 80053; 80061; 82306; 82607; 82962; 83605; 83735; 83880; 84100; 84132; 84443; 84484; 85025; 85048; 85610; 85730; 87081; 87426; 87804; 90935; 93005; 94640; G0378; J1815; J2405; J7060

== ENCOUNTER 2024-11-30 20:24 | Inpatient (IN) | payer MEDICARE, MEDICAID ==
[~2024-11-30] VITALS: Ht 172.7 cm; Wt 74.5 kg
[~2024-11-30 20:24] MED LIST changes: +HYDR-4798 PO; +SEVE800T8 PO; +TRAZ-181 PO; +[UNRECOGNIZED DRUG - CODE] PO
[2024-11-30] MEDS: ONDANSETRON ODT 4 MG TAB PO ONE (21:15)
[2024-11-30 21:30] LABS: Hematocrit 40.9 % (41.0-53.0); Hemoglobin 13.8 g/dL (13.5-17.5); Mean Corpuscular Hemoglobin 30.5 pg (28.0-32.0); Mean Corpuscular Volume 90.2 fL (80.0-100.0); Nucleated Red Blood Cells % 0.1 %
[2024-11-30 21:38] LABS: Albumin 4.4 g/dL (3.2-4.8); Anion Gap 17 (5-15); BUN/Creatinine Ratio 5.4 (10.0-20.0); Calcium 9.2 mg/dL (8.7-10.4); Carbon Dioxide 25 mmol/L (20-31); Lipase 51 U/L (12-53); Total Protein 7.0 g/dL (5.7-8.2)
[2024-11-30 21:40] LABS: Alanine Aminotransferase < 9 U/L (7-40); Alkaline Phosphatase 138 U/L (46-116); Bilirubin, Total 0.2 mg/dL (0.2-1.0); Blood Urea Nitrogen 50 mg/dL (9-23); Chloride 92 mmol/L (98-107); Glucose 151 mg/dL (74-106); Sodium 134 mmol/L (136-145)
[2024-11-30 21:43] LABS: Potassium 5.6 mmol/L (3.5-5.1)
[2024-11-30] MEDS: LORazepam 0.5 MG TAB PO ONE (21:49)
[2024-11-30] MEDS: LORazepam 0.5 MG TAB ONE (23:07)
[2024-11-30] MEDS: HYDROmorphone HCL 2 MG/ML VL/or syr IM ONE (23:18)
[2024-12-01] VITALS (8 sets, daily range): BP systolic 105–185; BP diastolic 73–133; PULSE 69–100; RESP 12–18; TEMP 97.5–97.8; O2SAT 90–99
--- NOTE | 2024-12-01 01:11 | ED.PDOC ---
HPI Comments This patient is a 54-year-old male who appears much older than his chronology who arrives the ED today with complaints of chest pain for approximately 3 hours prior to arrival. Patient states he was napping when he woke up from his nap due to the chest pain concerns. Patient states he has a history of cardiac issues. Patient has a additional musculoskeletal chronic pain complaints. Patient denies any fever nausea or vomiting. Patient was mildly hypertensive on arrival. Chief Complaint: Chest Pain Time Seen by MD: 20:25 Primary Care Provider: NO CURRENT PRIMARY Reviewed Notes: Nurses Notes Allergies: Coded Allergies: Pneumococcal Vaccines (Verified Allergy, Unknown, 07/17/24) Home Meds Active Scripts Trazodone HCl (Trazodone Hydrochloride) 50 Mg Tab, 50 MG PO HS for 20 Days, #20 TAB 1 Refill Prov:HEWADMALHEWAD RESDIENT 08/16/24 Sevelamer Carbonate (Renvela) 800 Mg Tab, 3 TAB PO TID for 20 Days, #180 TAB 2 Refills Prov:HEWADMALBINWAD RESDIENT 08/01/24 Diphenhydramine HCl (Allergy Relief) 25 Mg/10 Ml Liq, 25 MG PO BID for 15 Days, #30 LIQ 1 Refill Prov:HEWADMBIN CABRERAWAD RESDIENT 25 Diphenhydramine-Zinc Acetate (Benadryl Cream) 1 Applic Ap, 1 APPLIC TOP Q6HPRN PRN for 30 Days, #120 APPLIC Prov:ALANA CANNON RESIDENT 07/30/23 Acetaminophen (Acetaminophen) 325 Mg Tab, 650 MG PO Q6HP PRN for 30 Days, #240 TAB Prov:ALANA CANNON RESIDENT 07/30/23 Ergocalciferol (VITAMIN D 93384 UNIT) 50,000 [place], [address] UNIT PO Q7D for 30 Days, #10 CAP Prov:ALANA CANNON 07/30/23 Ticagrelor Base (BRILINTA) 90 Mg Tab, 60 MG PO BID, #60 TAB 5 Refills Prov:LEIGHTON HARDY MD 11/06/22 B-Complex W/ C & Folic Acid (Mayra-Evan) Tab, 1 TAB PO DAILY for 30 Days, #30 TAB Prov:LEIGHTON HARDY MD 11/06/22 Albuterol Sulfate (VENTOLIN MDI) 90 Mcg Ih, 90 MCG IN Q6HP PRN, #1 INH 180 MCG Q6H NEEDED FOR SHORTNESS OF BREATH AND WHEEZING Prov:NOAM CORREA MD 04/26/21 Metoprolol Succinate (Toprol Xl) 50 Mg Tab, 100 MG PO DAILY for 30 Days, #60 TAB Prov:NOAM CORREA MD 12/30/19 Reported Medications Hydrocodone-Acetaminophen (Hydrocodone Bitartrate/AC 10-325 mg) 1 Tab Tab, 1 TAB PO QID, TAB 08/01/24 Lorazepam (ATIVAN TABLET) 0.5 Mg Tb, 1 TAB PO TID PRN for ANXIETY, #90 TAB 10/16/23 Patients Own Medication (PATIENTS OWN MEDICATION) ., 1 PATCH TD DAILY PTS OWN MED-OBTAIN FROM PT AND SEND TO RX DRUG: FREQ: RX# EXP: DATE DISP: TECH: RPH: 10/16/23 Sevelamer Carbonate (Sevelamer Carbonate) 800 Mg Tab, 5 TAB PO TIDWM, TAB 10/16/23 Insulin Glargine (Lantus) 100 Unit/Ml Inj, 15 UNIT SC HS, INJ 10/16/23 Trazodone Hcl (Trazodone Hcl) 150 Mg Tab, 150 MG PO for for sleep, MG 09/19/23 Nifedipine (Nifedipine Er) 90 Mg Tab, 1 TAB PO DAILY, #30 TAB 5 Refills 07/26/21 Hydralazine Hcl (Hydralazine Hcl) 50 Mg Tab, 50 MG PO TID for 30 Days, MG 07/26/21 Insulin Lispro (Human) (Humalog) 100 Unit/Ml Inj, 2-3 UNIT SC TID, INJ 12/20/19 Atorvastatin Calcium (ATORVASTATIN CALCIUM) 40 Mg Tab, 1 TAB PO HS, #30 TAB 5 Refills 03/27/19 Information Source: Patient Mode of Arrival: Ambulatory Severity: Moderate Timing: Hours Duration: Since onset Prehospital treatment: None Location: Chest (L), Substernal Quality: Sharp, Pressure Onset: At Rest Cardiac Risk Factors: None History of: Similar pain in past Past Medical History PAST MEDICAL HISTORY: Anxiety, Asthma, CAD, CHF, Depression, DM, ESRD, High Lipids, HTN, SD Surgical History: Pacemaker, PTCA Family History Family History: Reviewed,noncontributory to illness, Family hx of DM, Family hx of heart razia, Family hx of HTN Social History Smoker: Cigarettes Alcohol: Occasionally Drugs: Cocaine Lives In: Home Constitutional: denies: chills, diaphoresis, fatigue, fever, malaise, sweats, weakness, others EENTM: denies: blurred vision, double vision, ear bleeding, ear discharge, ear drainage, ear pain, ear ringing, eye pain, eye redness, hearing loss, mouth pain, mouth swelling, nasal discharge, nose bleeding, nose congestion, nose pain, photophobia, tearing, throat pain, throat swelling, voice changes, others Respiratory: denies: cough, hemoptysis, orthopnea, SOB at rest, shortness of breath, SOB with excertion, stridor, wheezing, others Cardiovascular: reports: chest pain; denies: dizzy spells, diaphoresis, Dyspnea on exertion, edema, irregular heart beat, left arm pain, lightheadedness, palpitations, PND, syncope, others Gastrointestinal: denies: abdomen distended, abdominal pain, blood streaked bowels, constipated, diarrhea, dysphagia, difficulty swallowing, hematemesis, melena, nausea, poor appetite, poor fluid intake, rectal bleeding, rectal pain, vomiting, others Genitourinary: denies: burning, dysuria, flank pain, frequency, hematuria, incontinence, penile discharge, penile sore, pain, testicle pain, testicle swelling, urgency, others Neurological: denies: dizziness, fainting, headache, left sided numbness, left sided weakness, numbness, paresthesia, pre-existing deficit, right sided numbness, right sided weakness, seizure, speech problems, tingling, tremors, weakness, others Musculoskeletal: denies: back pain, gout, joint pain, joint swelling, muscle pain, muscle stiffness, neck pain, others Integumetry: denies: bruises, change in color, change in hair/nails, dryness, laceration, lesions, lumps, rash, wounds, others Allergic/Immunocompromised: denies: Difficulty Healing, Frequent Infections, Hives, Itching, others Hematologic/Lymphatic: denies: anemia, blood clots, easy bleeding, easy bruising, swollen glands, others Endocrine: denies: excessive hunger, excessive sweating, excessive thirst, excessive urination, flushing, intolerance to cold, intolerance to heat, unexplained weight gain, unexplained weight loss, others Psychiatric: denies: anxiety, bipolar disorder, depression, hopeless, panic disorder, schizophrenia, sleepless, suicidal, others Physical Exam General Appearance: Moderate Distress (Due to chest pain concerns. Patient appears moderately toxic. Patient appears much older than his chronology.), No rmal HEENT: Normal ENT Inspection, Pharynx Normal, TMs Normal Neck: Full Range of Motion, Non-Tender, Normal, Normal Inspection Respiratory: Chest Non-Tender, Lungs Clear, No Accessory Muscle Use, No Respiratory Distress, Normal Breath Sounds, Other (Unremarkable auscultation bilateral lung leal.) Cardiovascular: No Edema, No JVD, No Murmur, No Gallop, Normal Peripheral Pulses, Regular Rate/Rhythm, Other (Unremarkable cardiac evaluation.) Breast Exam: Deferred Gastrointestinal: No Organomegaly, Non Tender, No Pulsatile Mass, Normal Bowel Sounds, Soft Genitalia: Deferred Pelvic: Deferred Rectal: Deferred Extremities: No calf tenderness, Normal capillary refill, Normal inspection, Normal range of motion, Non-tender, No pedal edema Neurologic: Alert, No Motor Deficits, Normal Affect, Normal Mood, No Sensory Deficits Cerebellar Function: NOT DONE Reflexes: NOT DONE Skin: Dry, Normal Color, Warm Lymphatic: No Adenopathy Was a procedure done? Was a procedure done?: No CP Differential Dx Differential Diagnosis: A-fib, A-Flutter, Anxiety / Panic Attack, Atrial Dysrhythmia, AV Block 1st Degree, SD Differential Diagnosis: CHF Differential Diagnosis: Angina, Chest Wall Pain X-Ray, Labs, Meds, VS Vital Signs Date Time Temp Pulse Resp B/P (MAP) Pulse Ox O2 Delivery O2 Flow Rate FiO2 11/30/24 23:21 98.2 88 18 153/82 (105) 97 98.2 11/30/24 23:18 88 18 153/86 11/30/24 21:09 97.6 92 20 134/90 (105) 98 97.6 11/30/24 20:25 91 11/30/24 20:25 98.0 94 16 152/97 98 98.0 Lab Test 11/30/24 22:03 11/30/24 21:10 Range/Units Troponin I High Sensitivity 43 40 </=54 ng/L White Blood Count 5.6 4.4-10.8 10^3/uL Red Blood Count 4.53 4.5-5.90 10^6/uL Hemoglobin 13.8 13.5-17.5 g/dL Hematocrit 40.9 L 41.0-53.0 % Mean Corpuscular Volume 90.2 80.0-100.0 fL Mean Corpuscular Hemoglobin 30.5 28.0-32.0 pg Mean Corpuscular Hemoglobin Concent 33.8 32.0-36.0 g/dL Red Cell Distribution Width 18.0 H 11.8-14.3 % Platelet Count 183 140-450 10^3/uL Mean Platelet Volume 8.5 6.9-10.8 fL Neutrophils (%) (Auto) 74.0 37.0-80.0 % Lymphocytes (%) (Auto) 12.7 10.0-50.0 % Monocytes (%) (Auto) 10.1 0.0-12.0 % Eosinophils (%) (Auto) 1.9 0.0-7.0 % Basophils (%) (Auto) 1.3 0.0-2.0 % Neutrophils # (Auto) 4.1 1.6-8.6 10 ^3/uL Lymphocytes # (Auto) 0.7 0.4-5.4 10 ^3/uL Monocytes # (Auto) 0.6 0-1.3 10 ^3/uL Eosinophils # (Auto) 0.1 0-0.8 10 ^3/uL Basophils # (Auto) 0.1 0-0.2 10 ^3/uL Nucleated Red Blood Cells 0.1 % Sodium Level 134 L 136-145 mmol/L Potassium Level 5.6 *H 3.5-5.1 mmol/L Chloride Level 92 L 98-107 mmol/L Carbon Dioxide Level 25 20-31 mmol/L Anion Gap 17 H 5-15 Blood Urea Nitrogen 50 H 9-23 mg/dL Creatinine 9.34 H 0.700-1.30 mg/dL Glomerular Filtration Rate Calc 6 >90 mL/min BUN/Creatinine Ratio 5.4 L 10.0-20.0 Serum Glucose 151 H 74-106 mg/dL Calcium Level 9.2 8.7-10.4 mg/dL Total Bilirubin 0.2 0.2-1.0 mg/dL Aspartate Amino Transferase (AST) 15 13-40 U/L Alanine Aminotransferase (ALT) < 9 7-40 U/L Alkaline Phosphatase 138 H 46-116 U/L B-Type Natriuretic Peptide 915.25 0-100 pg/mL Total Protein 7.0 5.7-8.2 g/dL Albumin 4.4 3.2-4.8 g/dL Lipase 51 12-53 U/L Plasma/Serum Blood Alcohol 3.2 <10 mg/dL Current Medications Medications (Trade) Dose Ordered Sig/Caroline Route Start Time Stop Time Status Last Admin Hydromorphone HCl (Dilaudid Injection) 0.5 mg ONCE ONCE IM 11/30/24 21:15 11/30/24 21:16 DC 11/30/24 23:18 Ondansetron HCl (Zofran Po) 4 mg ONCE ONCE PO 11/30/24 21:15 11/30/24 21:16 DC 11/30/24 21:15 Lorazepam (Ativan Tablet) 1 mg ONCE ONCE PO 11/30/24 21:30 11/30/24 21:31 DC 11/30/24 21:49 X-Ray, Labs, Meds, VS Comment All studies performed the ED were evaluated by me personally. Serum studies revealed a mild hypokalemia, a significant acute on chronic renal concern, hyperglycemia and an acute CHF exacerbation. EKG revealed a sinus rhythm with a rate of 91. LVH with secondary repolarization abnormality noted as well as an old anterior infarct. NM interval of 144 and QT interval of 366. Patient will be admitted for management of his multiple comorbidities including a nephrology consult as well as a possible cardiac evaluation. Time of 1ST Reevaluation: 01:09 Reevaluation 1ST: Improved Consultation: PCP Patient Education/Counseling: Diagnosis, Treatment Family Education/Counseling: Diagnosis, Treatment SEPSIS Sepsis Screen Date sepsis recognized/suspect: Nov 30, 2024 Time Sepsis recognized/suspect: 2030 Recent Procedure: No On Antibiotic Therapy: No Respiratory Rate >20: No Heart Rate >90: No Temp<36 C (96.8 F) or >38.3 C: No SBP <90 or MAP <65 mmHG: No New Acute Mental Status Change: No Is the patient on CPAP, BIPAP,: No Physician Orders Electrocardigram (11/30/24 20:30) Urinalysis (11/30/24 21:02) Drug Screen (11/30/24 21:02) Vital Signs Date Time Temp Pulse Resp B/P (MAP) Pulse Ox O2 Delivery O2 Flow Rate FiO2 11/30/24 23:21 98.2 88 18 153/82 (105) 97 98.2 11/30/24 23:18 88 18 153/86 11/30/24 21:09 97.6 92 20 134/90 (105) 98 97.6 11/30/24 20:25 91 11/30/24 20:25 98.0 94 16 152/97 98 98.0 Laboratory Tests Test 11/30/24 21:10 White Blood Count 5.6 10^3/uL (4.4-10.8) Medications Medications Dose Ordered Sig/Caorline Route Start Time Stop Time Status Last Admin Dose Admin Hydromorphone HCl 0.5 mg ONCE ONCE IM 11/30/24 21:15 11/30/24 21:16 DC 11/30/24 23:18 Lorazepam 1 mg ONCE ONCE PO 11/30/24 21:30 11/30/24 21:31 DC 11/30/24 21:49 Ondansetron HCl 4 mg ONCE ONCE PO 11/30/24 21:15 11/30/24 21:16 DC 11/30/24 21:15 Departure 1 Departure Time of Disposition: 01:09 Impression: Primary Impression: Acute exacerbation of CHF (congestive heart failure) Additional Impressions: Hyperkalemia Hyperglycemia Acute on chronic renal insufficiency Disposition: 09 ADMITTED INPATIENT Condition: Fair Discharged With: Self Critical Care Note Critical Care Time?: No Stability Stability form required: No Heart Score Heart Score: Heart Score Response (Comments) Value History Slightly Suspicious 0 EKG Repolarization Disturb 1 Age 45-64 1 Risk Factors 1 or 2 risk factors 1 Troponin Normal limit 0 Total 3 ANNABELLE PERKINS PAC Dec 01, 2024 01:11
[2024-12-01] MEDS ORDERED: MORPHINE SULFATE INJ 2 MG/ml SYRG IV PRN (02:45)
[2024-12-01] MEDS ORDERED: NITROGLYCERIN 0.4 MG SL TAB SL PRN (02:45)
[2024-12-01] MEDS: ALBUTEROL SULF 2.5 MG/0.5ML(0.5%) NEB SOLN NEB ONE (03:34)
[2024-12-01] MEDS: ALBUTEROL SULF 2.5 MG/0.5ML(0.5%) NEB SOLN ONE (03:34)
--- NOTE | 2024-12-01 04:27 | DVHHPRES ---
History of Present Illness Resident Creating Document: ABY NASSAR RESIDENT History of Present Illness 54-year-old male status post pacemaker implantation, PCI with 2 stent placement, ESRD on dialysis (MWF schedule) presents to the ER with chest pain 8/10, associated with nausea, which radiates to back started since morning. He also reports having shortness of breath which increases on lying down. He also reports having severe pain at the back lipoma. After taking morphine he reports his chest pain improved to 5/10. He denies any fever abdominal pain, nausea vomiting diarrhea or any other complaints. Past medical history: Coronary artery disease, ESRD, diabetes mellitus Past surgical history: PCI, status post pacemaker placement Home medicines: Albuterol, insulin, Ativan PCP: Social workers are scheduling him with a PCP. Smokin-2 cigarettes per day since last 20 years Alcohol occasionally Drugs: None Allergies: Pneumococcal vaccines Code status full code Review of Systems Allergies: Coded Allergies: Pneumococcal Vaccines (Verified Allergy, Unknown, 07/17/24) Medications Current Medications Medications Dose Ordered Sig/Caroline Route Start Time Stop Time Status Last Admin Dose Admin Acetaminophen/ Hydrocodone Bitart 1 tab Q4HP PRN PO 12/01/24 02:45 Nitroglycerin 0.4 mg Q5MINP PRN SL 12/01/24 02:45 Morphine Sulfate 2 mg Q30M PRN IV 12/01/24 02:45 Nifedipine 90 mg DAILY PO 12/01/24 10:00 UNV Hydralazine HCl 50 mg Q8HR PRN PO 12/01/24 04:15 UNV Insulin Glargine 10 units QAM SC 12/01/24 07:00 UNV Diagnostic Test (Pha) 1 strip IQ4HR 12/01/24 08:00 UNV Insulin Human Regular IQ4HR SC 12/01/24 08:00 UNV Dextrose 50 ml UD PRN IV 12/01/24 04:15 UNV Exam Vital Signs Vital Signs Date Time Temp Pulse Resp B/P (MAP) Pulse Ox O2 Delivery O2 Flow Rate FiO2 12/01/24 03:34 22 98 Room Air* 0 21 12/01/24 03:25 98.4 86 168/96 (120) 98.4 Labs/Xrays Labs Test 11/30/24 22:03 11/30/24 21:10 Range/Units Troponin I High Sensitivity 43 </=54 ng/L White Blood Count 5.6 4.4-10.8 10^3/uL Red Blood Count 4.53 4.5-5.90 10^6/uL Hemoglobin 13.8 13.5-17.5 g/dL Hematocrit 40.9 L 41.0-53.0 % Mean Corpuscular Volume 90.2 80.0-100.0 fL Mean Corpuscular Hemoglobin 30.5 28.0-32.0 pg Mean Corpuscular Hemoglobin Concent 33.8 32.0-36.0 g/dL Red Cell Distribution Width 18.0 H 11.8-14.3 % Platelet Count 183 140-450 10^3/uL Mean Platelet Volume 8.5 6.9-10.8 fL Neutrophils (%) (Auto) 74.0 37.0-80.0 % Lymphocytes (%) (Auto) 12.7 10.0-50.0 % Monocytes (%) (Auto) 10.1 0.0-12.0 % Eosinophils (%) (Auto) 1.9 0.0-7.0 % Basophils (%) (Auto) 1.3 0.0-2.0 % Neutrophils # (Auto) 4.1 1.6-8.6 10 ^3/uL Lymphocytes # (Auto) 0.7 0.4-5.4 10 ^3/uL Monocytes # (Auto) 0.6 0-1.3 10 ^3/uL Eosinophils # (Auto) 0.1 0-0.8 10 ^3/uL Basophils # (Auto) 0.1 0-0.2 10 ^3/uL Nucleated Red Blood Cells 0.1 % Sodium Level 134 L 136-145 mmol/L Potassium Level 5.6 *H 3.5-5.1 mmol/L Chloride Level 92 L 98-107 mmol/L Carbon Dioxide Level 25 20-31 mmol/L Anion Gap 17 H 5-15 Blood Urea Nitrogen 50 H 9-23 mg/dL Creatinine 9.34 H 0.700-1.30 mg/dL Glomerular Filtration Rate Calc 6 >90 mL/min BUN/Creatinine Ratio 5.4 L 10.0-20.0 Serum Glucose 151 H 74-106 mg/dL Calcium Level 9.2 8.7-10.4 mg/dL Total Bilirubin 0.2 0.2-1.0 mg/dL Aspartate Amino Transferase (AST) 15 13-40 U/L Alanine Aminotransferase (ALT) < 9 7-40 U/L Alkaline Phosphatase 138 H 46-116 U/L B-Type Natriuretic Peptide 915.25 0-100 pg/mL Total Protein 7.0 5.7-8.2 g/dL Albumin 4.4 3.2-4.8 g/dL Lipase 51 12-53 U/L Plasma/Serum Blood Alcohol 3.2 <10 mg/dL SEPSIS Sepsis Screen Date sepsis recognized/suspect: Nov 30, 2024 Time Sepsis recognized/suspect: 2030 Recent Procedure: No On Antibiotic Therapy: No Respiratory Rate >20: No Heart Rate >90: No Temp<36 C (96.8 F) or >38.3 C: No SBP <90 or MAP <65 mmHG: No New Acute Mental Status Change: No Is the patient on CPAP, BIPAP,: No Physician Orders Electrocardigram (11/30/24 20:30) Urinalysis (11/30/24 21:02) Drug Screen (11/30/24 21:02) Sodium Chloride 0.9% (12/01/24 01:15) Chest Xray 1 View (12/01/24 03:13) Drug Screen (12/01/24 03:21) Admit (12/01/24 02:44) Allergies (12/01/24 02:44) Code Status (12/01/24 02:44) Oxygen Per Hour (12/01/24 02:44) Hydrocodone-Acet 5/325mg Tab ([place] 5/32 (12/01/24 02:45) Complete Blood Count (12/02/24 04:00) Comprehensive Metabolic Panel (12/02/24 04:00) Cardiac Diet-2gna,Lofat,Lochol (12/01/24 Breakfast) Nitroglycerin Sublingual (Ntrostat Subli (12/01/24 02:45) Morphine Sulfate Injection (12/01/24 02:45) Oxygen By Nasal Cannula (12/01/24 02:44) Stat Ekg For Chest Pain (12/01/24 02:44) Notify Md Of Changes From Base (12/01/24 02:44) Accounting Machine Operator For 24 Hours (12/01/24 02:44) Emergency Dysrhythmia Protocol (12/01/24 02:44) Rhythm Strips Once Every Shift (12/01/24 02:44) *Dr. Rhonda Longoria -Da Sarahi (12/01/24 04:11) Nifedipine Er (Procardia Xl (Time-Releas (12/01/24 10:00) Hydralazine Hcl Tablet (Apresoline Table (12/01/24 04:15) Lorazepam Tablet (Ativan Tablet) (12/01/24 04:15) Insulin Lantus (Glargine) (Lantus) (12/01/24 07:00) Glucose Blood (Accu-Chek Comfort Curve T (12/01/24 08:00) Insulin R (Human) (Insulin R) (12/01/24 08:00) Dextrose 50% Syringe (12/01/24 04:15) Vital Signs Date Time Temp Pulse Resp B/P (MAP) Pulse Ox O2 Delivery O2 Flow Rate FiO2 12/01/24 03:34 22 98 Room Air* 0 21 12/01/24 03:25 98.4 86 16 168/96 (120) 97 98.4 12/01/24 01:29 98.5 89 18 179/107 (131) 96 98.5 11/30/24 23:21 98.2 88 18 153/82 (105) 97 98.2 11/30/24 23:18 88 18 153/86 11/30/24 21:09 97.6 92 20 134/90 (105) 98 97.6 Laboratory Tests Test 11/30/24 21:10 White Blood Count 5.6 10^3/uL (4.4-10.8) Medications Medications Dose Ordered Sig/Caroline Route Start Time Stop Time Status Last Admin Dose Admin Albuterol 20 mg ONCE ONCE NEB 12/01/24 03:30 12/01/24 03:31 DC 12/01/24 03:34 20 MG Hydromorphone HCl 0.5 mg ONCE ONCE IM 11/30/24 21:15 11/30/24 21:16 DC 11/30/24 23:18 0.5 MG Lorazepam 1 mg ONCE ONCE PO 11/30/24 21:30 11/30/24 21:31 DC 11/30/24 21:49 1 MG Ondansetron HCl 4 mg ONCE ONCE PO 11/30/24 21:15 11/30/24 21:16 DC 11/30/24 21:15 4 MG Assessment/Plan Assessment/Plan Shortness of breathe due to volume overload due to ESRD CXR: Mild pulmonary vascular congestion, no focal consolidation, left lower lobe segmental atelectasis EKG: Sinus rhythm, LVH with secondary repolarization abnormality, inferior infarct old Creatinine 9.34 -Albuterol med neb -nephrology on board Uncontrolled diabetes mellitus Lantus 10 units Insulin sliding scale Pain at the lipoma site Hydromorphone [place] p.r.n. Uncontrolled hypertension: Nifedipine Hydralazine Anxiety Ativan 0.5 mg Hyperkalemia Potassium 5.6 Lokelma Insulin Dextrose Alcohol use disorder: Counseling regarding cessation of alcohol for more than 15 minutes GI prophylaxis: Pantoprazole DVT prophylaxis: Heparin 5000 units subcutaneous, b.i.d. Diet: Cardiac Goals of care discussed with the patient for more than 27 minutes: Full code status Case discussed with , patient and RN Plan discussed with: Patient, Other (RN) My Orders Orders - ABY NASSAR RESIDENT Procedure Category Date Status Time Admit ADMIT 12/01/24 Transmitted 02:44 Allergies JADE 12/01/24 In Process 02:44 Code Status CODE 12/01/24 Transmitted 02:44 Oxygen Per Hour RT 12/01/24 Transmitted 02:44 Hydrocodone-Acet PHA 12/01/24 In Process 5/325mg Tab ([place] 02:45 Complete Blood Count LAB 12/02/24 Verified 04:00 Comprehensive LAB 12/02/24 Verified Metabolic Panel 04:00 Cardiac DIET 12/01/24 Transmitted Diet-2gna,Lofat,Lochol Breakfast Nitroglycerin PHA 12/01/24 In Process Sublingual (Ntrostat 02:45 Morphine Sulfate PHA 12/01/24 In Process Injection 02:45 Oxygen By Nasal RT 12/01/24 Transmitted Cannula 02:44 Stat Ekg For Chest JADE 12/01/24 In Process Pain 02:44 Notify Of Changes JADE 12/01/24 In Process From Base 02:44 Accounting Machine Operator For JADE 12/01/24 In Process 24 Hours 02:44 Emergency Dysrhythmia JADE 12/01/24 In Process Protocol 02:44 Rhythm Strips Once [facility] 12/01/24 In Process Every Shift 02:44 *Dr. Rhonda Longoria -Reg CONS 12/01/24 Transmitted Sarahi 04:11 Nifedipine Er PHA 12/01/24 Logged (Procardia Xl 10:00 Hydralazine Hcl PHA 12/01/24 Logged Tablet (Apresoline 04:15 Lorazepam Tablet PHA 12/01/24 Logged (Ativan Tablet) 04:15 Insulin Lantus PHA 12/01/24 Logged (Glargine) (Lantus) 07:00 Glucose Blood PHA 12/01/24 Logged (Accu-Chek Comfort 08:00 Insulin R (Human) PHA 12/01/24 Logged (Insulin R) 08:00 Dextrose 50% Syringe PHA 12/01/24 Logged 04:15 Date of Service: Dec 01, 2024 Billing Provider: MILA DUNHAM MD Common Visit Codes: [id number] INP/OBS CARE (HIGH) Secondary Visit Codes: [id number] CARE PLAN 30 MINUTES ABY NASSAR RESIDENT Dec 01, 2024 04:27
--- NOTE | 2024-12-01 04:31 | DVH ---
CHEST RADIOGRAPH Indication: SOB and chest pain eval lung parenchyma Technique: Single frontal view of the chest was obtained Comparison: XY CHEST PORTABLE on DOS: 08/14/24, XY CHEST XRAY 1 VIEW on DOS: 07/30/24, XY CHEST PORTABL E on DOS: 07/16/24, XY CHEST XRAY 1 VIEW on DOS: 12/22/23, XY CHEST PORTABLE on DOS: 12/20/23 FINDINGS: Lines and Tubes: Left chest pacer. Lungs: No focal consolidation. Mild pulmonary vascular congestion. Left lower lobe subsegmental atele ctasis Pleura: No effusion. No pneumothorax. Cardiomediastinal contours: Unremarkable Bones: No acute osseous abnormality. IMPRESSION: 1. Mild pulmonary vascular congestion. No focal consolidation. Left lower lobe subsegmental atelectas is.
[2024-12-01] MEDS: LORazepam 0.5 MG TAB PO ONE ×2 (04:48→16:50)
[2024-12-01] MEDS: SODIUM ZIRCONIUM CYCL 10 GM PAK PO ONE (04:48)
[2024-12-01] MEDS: DEXTROSE (50%) 50ML SYRG IV ONE (04:50)
[2024-12-01] MEDS: InsuLIN REG 1unit/0.01ml Soln (100units/ml) IV ONE (04:50)
[2024-12-01] MEDS: FUROSEMIDE 40 MG/4 ML VIAL IV ONE (04:50)
[2024-12-01] MEDS: HYDROcodone-ACET 5/325MG TAB PO PRN (05:01)
--- NOTE | 2024-12-01 06:15 | ECG ---
[facility] Test Date: 2024-11-30 Test Time: 20:25:18 Pat Name: CODY SUAREZ Department: Room: 0219T Gender: M Pediatric Surgeon: PH : 1970 Requested By: ANNABELLE PERKINS Order Number: [id number] Reading MD: Santy Fernandes Measurements Intervals [place] Rate: 91 P: 38 DC: 144 QRS: -27 QRSD: 92 T: 157 QT: 366 QTc: 451 Interpretive Statements Sinus rhythm LVH with secondary repolarization abnormality Inferior infarct, old Electronically Signed On 12-04-2024 22:46:48 PDT by Santy Fernandes Please click the below link to view image of tracing.
[2024-12-01] MEDS: DEXTROSE (50%) 50ML SYRG IV PRN (06:27)
[2024-12-01] MEDS: INSULIN LANTUS (GLARGINE) 1 /0.01ml (100units/ml) SC SCH (06:55)
[2024-12-01] MEDS: InsuLIN REG 1unit/0.01ml Soln (100units/ml) SC SCH (08:00)
[2024-12-01] MEDS: SODIUM CHLORIDE 0.9% 1,000 ML IV ONE (08:10)
[2024-12-01] MEDS: ACCU-CHEK COMFORT CURVE STRIP VI SCH (08:10)
[2024-12-01] MEDS: HEPARIN SODIUM (PORCINE) 5000 UNITS/ML 1ML VIAL SC SCH (10:24)
[2024-12-01] MEDS: METOPROLOL SUCCINATE XL 50 MG TAB PO SCH (10:27)
[2024-12-01] MEDS: TICAGRELOR 60 MG TAB PO SCH (11:18)
[2024-12-01 11:28] LABS: Hematocrit 39.3 % (41.0-53.0); Hemoglobin 13.1 g/dL (13.5-17.5); Mean Corpuscular Hemoglobin 30.5 pg (28.0-32.0); Mean Corpuscular Volume 91.2 fL (80.0-100.0); Nucleated Red Blood Cells % 0.0 %
[2024-12-01 11:33] LABS: Potassium 4.9 mmol/L (3.5-5.1)
[2024-12-01 11:34] LABS: Anion Gap 16 (5-15); Calcium 9.2 mg/dL (8.7-10.4); Carbon Dioxide 23 mmol/L (20-31)
[2024-12-01 11:36] LABS: Chloride 94 mmol/L (98-107); Sodium 133 mmol/L (136-145)
[2024-12-01 11:39] LABS: BUN/Creatinine Ratio 4.9 (10.0-20.0)
[2024-12-01 11:41] LABS: Blood Urea Nitrogen 50 mg/dL (9-23); Glucose 241 mg/dL (74-106)
[2024-12-01] MEDS: hydrALAZINE HCL 20 MG/ML VL IV ONE (11:55)
[2024-12-01] MEDS: SEVELAMER 800 MG TAB PO SCH (12:00)
[2024-12-01] MEDS: SODIUM CHL 0.9% 1000 ML BAG XX ONE (13:15)
--- NOTE | 2024-12-01 14:35 | DVHINCON2 ---
DATE OF CONSULTATION: 12/01/2024 CONSULTING PHYSICIAN: Dr. Cartagena. REASON FOR CONSULTATION: Management of dialysis. HISTORY OF PRESENT ILLNESS: The patient is a 54-year-old gentleman who is one of our chronic dialysis patient, came to the hospital earlier today complaining of shortness of breath and chest pain. Apparently, he recently had dialysis treatment; however, missed his treatment this morning. He had associated nausea. When he came to the hospital, his systolic blood pressure was around 220. The patient was admitted for management of the uncontrolled hypertension and I am being consulted to handle his dialysis. REVIEW OF SYSTEMS: Otherwise unremarkable. He denies any fever. No cough. PAST MEDICAL HISTORY: Significant for longstanding hypertension, diabetes, end-stage renal disease, coronary artery disease, anemia, hyperparathyroidism. He has a history of a pacemaker placement. SOCIAL HISTORY: Denies smoking cigarettes, drinking alcohol, or using illicit drugs. FAMILY HISTORY: Negative for chronic conditions. MEDICATIONS IN THE HOSPITAL: Include hydralazine, atorvastatin, Sevelamer, metoprolol, heparin, nifedipine, insulin, dextrose, lorazepam, morphine, hydrocodone, furosemide, and Lokelma. PHYSICAL EXAMINATION: VITAL SIGNS: Blood pressure is 189/100, heart rate 100, respirations 12, temperature 98.2. GENERAL: The patient is an adult gentlemen who appears to be chronically ill, in no acute distress. Alert and oriented x 3. HEENT: Unremarkable. NECK: No jugular venous distention, palpable thyroid, or lymphadenopathy. LUNGS: Clear to auscultation. CARDIOVASCULAR: Shows regular rate with an S4 gallop. ABDOMEN: Soft, nontender. No organomegaly. No ascites. EXTREMITIES: Show no clubbing or cyanosis. There is trace edema in the ankles. NEUROLOGIC: Nonfocal. SKIN: Unremarkable. LABORATORY FINDINGS: Sodium 133, potassium 4.9, creatinine 10, bicarbonate 23. Hemoglobin 13.1. ASSESSMENT AND PLAN: * End-stage renal disease. * Uncontrolled hypertension. * Diabetic nephropathy. * Atypical chest pain in a patient with documented history of coronary artery disease. * Mild hyponatremia. We will arrange to have the dialysis done as soon as possible. We will try to remove 3-4 liters of fluid, which should help significantly with his blood pressure management. In the meantime, we should continue treating him with his outpatient medications. Recommend to continue with calcium channel radha, beta-radha, hydralazine, clonidine, and put on a strict low salt and fluid restriction. We will follow him closely. Thank you for the consultation. MD ALEJANDRO Pantoja/JACQUES TID: [id number] RECEIPT: [id number]
--- NOTE | 2024-12-01 18:38 | DVHPNRES ---
Progress Note Date Seen: Dec 01, 2024 Resident Creating Document: JOSE FITZPATRICK RESIDENT Medical Necessity Reason Pt with a Central, PICC or Fol: No Subjective Review of Systems Patient is a 54-year-old male with prior medical history of type 2 diabetes, hypertension, ESRD on dialysis, myocardial infarction with 2 GINO, pacemaker placed 7 years ago, anxiety, marijuana use, and history of alcohol abuse, since to the ED with chief complaint of chest pain and shortness of breath. Since yesterday he had onset of increasing shortness of breath, blood test pain described as pressure, 7/10 in intensity, radiating towards the back, no aggravating nor relieving factors, associated with fatigue. he states that ran out of his hypertension medication 2 days before onset of symptoms. Due to persistence of symptoms, he sought medical care. He denies fever, abdominal pain, palpitations, nausea, vomiting, diarrhea. On evaluation in the ED, the patient was in moderate distress and hypertensive. Initial labs show CBC within normal range, sodium 134, potassium 5.6, creatinine 9.34, BUN 50, glucose 151, BNP 915.25, troponins negative. 12 lead EKG preformed in ED shows sinus rhythm with signs of old anterior infarct. chest x-ray shows mild vascular congestion, no focal consolidation, left lower lobe subsegmental atelectasis. Patient was admitted for further workup and monitoring. Personal history: type 2 diabetes mellitus, hypertension, ESRD on dialysis for the last 12 years, myocardial infarction with 2 GINO, pacemaker placed 7 years ago, anxiety Surgical: PCI, pacemaker placement, dialysis fistula formation Social: States he has smoked weed for approximately 30 years, refers 1 cigarette a week for the last 20 years, referred used to drink 140 oz beer a day for 20 years and stopped 12 years ago. states he is currently homeless. Patient seen at bedside. Patient states he feels better, chest pain and shortness of breath have improved, patient refers intense pain mainly from lipoma located on back. Currently denies fever, abdominal pain, nausea, vomiting, palpitations, and symptoms. Patient has been persistently hypertensive since arrival, he is saturating adequately on 2 L/min NC, other vitals are within normal rang. Follow up labs are significant for hemoglobin 13.1, hematocrit 39.3, sodium 133, potassium 4.9, creatinine 10.21, and glucose 241. Overnight the patient had 1 episode of hypoglycemia possibly secondary to use of insulin. nephrology was consulted and they will arrange for dialysis to be done as soon as possible to remove 3-4 L of fluid to help improve blood pressure management, until this be arranged they recommend use of calcium channel radha, beta radha, hydralazine, clonidine and to put on a strict low-salt and fluid restriction. Patient has not echocardiogram from February 2024 which shows LVEF of less than 30%, due to current symptoms a new echocardiogram has been ordered. We will continue to monitor. Review of Systems: Constitutional: Denies weight loss, fever and chills. HEENT: Denies changes in vision and hearing. Respiratory: States shortness of breath has improved, Denies cough Cardiovascular: States chest pain however improved, Denies palpitations GI: Denies abdominal distention, abdominal pain, diarrhea : Denies dysuria and urinary frequency. Musculoskeletal: Refers localized back pain at lipoma Skin: States he has a generalized rash due to dialysis. Neurological: denies dizziness headache vision or hearing problems Objective vital signs Vital Sign Date Time Temp Pulse Resp B/P (MAP) Pulse Ox O2 Delivery O2 Flow Rate FiO2 12/01/24 17:00 97.5 81 16 164/133 (143) 99 97.5 12/01/24 16:35 Nasal Cannula* 2 28 medications Current Medications Medications Dose Ordered Sig/Caroline Route Start Time Stop Time Status Last Admin Dose Admin Acetaminophen/ Hydrocodone Bitart 1 tab Q4HP PRN PO 12/01/24 02:45 Hold 12/01/24 10:25 1 TAB Nitroglycerin 0.4 mg Q5MINP PRN SL 12/01/24 02:45 Morphine Sulfate 2 mg Q30M PRN IV 12/01/24 02:45 Nifedipine 90 mg DAILY PO 12/01/24 10:00 12/01/24 10:25 90 MG Hydralazine HCl 50 mg Q8HR PRN PO 12/01/24 04:15 12/01/24 04:59 50 MG Insulin Glargine 10 units QAM SC 12/01/24 07:00 12/01/24 06:55 10 UNITS Diagnostic Test (Pha) 1 strip IQ4HR 12/01/24 08:00 12/01/24 16:58 1 STRIP Insulin Human Regular IQ4HR SC 12/01/24 08:00 Dextrose 50 ml UD PRN IV 12/01/24 04:15 12/01/24 06:27 50 ML Heparin Sodium (Porcine) 5,000 units Q12HR SC 12/01/24 10:00 12/01/24 10:24 5,000 UNITS Metoprolol Succinate 100 mg DAILY PO 12/01/24 10:00 12/01/24 10:27 100 MG Ticagrelor 60 mg BID PO 12/01/24 10:23 12/01/24 11:18 60 MG Atorvastatin Calcium 40 mg HS PO 12/01/24 22:00 Sevelamer HCl 4,000 mg TIDWM PO 12/01/24 12:00 12/01/24 18:21 4,000 MG Hydralazine HCl 50 mg TID PO 12/01/24 22:00 Acetaminophen/ Hydrocodone Bitart 1 tab Q6HP PRN PO 12/01/24 16:15 Examination General: The patient alert and oriented in person place and time. Patient following commands HEENT: Normocephalic, atraumatic, EOM intact, pinpoint pupils, pink conjunctiva, pink moist mucous membrane Respiratory/pulmonary: Bilateral chest expansion, Clear lungs bilaterally, vesicular murmurs present in almost all lung leal, no associated crackles or wheezes. Patient is connected to nasal cannula at 2 L/min Cardiovascular: Normal RRR, normal S1 and S2; pacemaker in place Abdomen: Abdomen nondistended, there is no pain to palpation in any of the abdominal quadrants, no palpable masses. Extremities: Presence of AV fistula in inner left arm, good thrill is palpable, bruit can be heard, hardened region is palpable over left inner elbow, there is no peripheral edema present at the lower extremities, pulses are palpable. Skin: Presence of generalized papules seen on back, arms, and legs Neurological: Intact cranial nerves with no focal neurologic deficits laboratory and microbiology Laboratory Tests 12/01/24 11:13 Test 12/01/24 11:13 Range/Units Serum Glucose 241 H 74-106 mg/dL Labs and/or images reviewed: Labs reviewed by me, Image(s) reviewed by me Problem List/Assessment/Plan Problem List/Assessment/Plan Assessments and plan: Hypertensive emergency - Hydralazine 50 mg p.o. t.i.d. - metoprolol succinate 100 mg p.o. daily - 90 mg p.o. daily - [place] 10 mg p.o. q.6 p.r.n. - Dilaudid 0.5 g IM once Acute Chest Pain, ACS ruled out, likely due to above Acute hypoxic respiratory failure, secondary to pulmonary congestion due to fluid overload due to above: -NC 2 L/min O2 Possible Acute on chronic HFrEF -Echo 02/25/2024: EF <30%, Severe TR; Severe PAH 71 mmHg, Mild MR -Echo pending -Furosemide 40 IV once ESRD on dialysis -Last dialysis on Wednesday -Nephrology was consulted: this will be arranged to be done as soon as possible, we will try to remove 3-4 L of fluid, which should help significantly with his blood pressure management. In the meantime we should continue treating him with his outpatient medications. Recommend to continue with calcium channel radha, beta-radha, hydralazine, clonidine, and put on a strict low-salt and fluid restriction. -Fluid restriction -Renal diet Hyperkalemia, resolved, likely due to above -Lokelma 10g PO once -Insulin + dextrose -Albuterol 20 mg nebulizer once Uremic pruritus likely due to above Mild hyponatremia, resolved Lipoma of the back NH x 2 GINO -S/p PCI - Brilinta 60 mg p.o. b.i.d. and atorvastatin Type 2 Diabetes Mellitus - Lantus 10 units subcutaneous q.a.m. Diabetic nephropathy Anxiety - Ativan 0.5 mg p.o. once Polysubstance use disorder including marijuana and tobacco -counseled for 22 minutes on marijuana and tobacco use cessation including exclusively 14 minutes for tobacco use cessation History of alcohol use disorder Diet renal DVT prophylaxis: 5000 U q12 hrs SC GI prophylaxis: Not indicated Goals of care discussed with the patient for 20 minutes. FULL CODE. Case discussed with Dr. Castro Plan discussed with: Patient, Other (RN) My Orders My Orders Orders - JOSE FITZPATRICK RESIDENT Procedure Category Date Status Time Renal DIET 12/02/24 Transmitted Standard(2gna,3gk,Lopho) Breakfast ADDENDUM ADDENDUM ADDENDUM I was physically present for the doe portions of the service provided to patient by THE RESIDENT. I have reviewed the documentation, discussed the case with resident and agree with the resident's documentation except as noted. Also the patient's clinical case was discussed with the patient's nurse. This medical document was created using an electronic medical record system with computerized dictation system. Although this document has been carefully reviewed, there might still be some phonetic and typographical errors. These areas are purely typographical due to imperfections of the software programs, and do not reflect any compromise in the patient's medical care. Late signature. Date of Service: Dec 01, 2024 Billing Provider: CORKY CASTRO MD Common Visit Codes: [id number] INP/OBS CARE(HIGH) Secondary Visit Codes: [id number] CHNG SMOKING >10MIN (22 minutes on marijuana and tobacco use cessation including exclusively 14 minutes for tobacco use cessation ), [id number] CARE PLAN 30 MINUTES (20 minutes) JOSE FITZPATRICK RESIDENT Dec 01, 2024 18:38 CORKY CASTRO MD Dec 04, 2024 13:00
[2024-12-01] MEDS: HYDROcodone-ACET 10/325MG TAB PO PRN (21:15)
[2024-12-01] MEDS: ATORVASTATIN 20 MG TAB PO SCH (22:41)
[2024-12-02] VITALS (11 sets, daily range): BP systolic 117–147; BP diastolic 70–91; PULSE 71–79; RESP 16–20; TEMP 97.3–98; O2SAT 92–99
[2024-12-02] MEDS: MELATONIN 5 MG TAB PO ONE (01:26)
[2024-12-02 06:46] LABS: Hematocrit 39.3 % (41.0-53.0); Hemoglobin 13.3 g/dL (13.5-17.5); Mean Corpuscular Hemoglobin 30.9 pg (28.0-32.0); Mean Corpuscular Volume 91.2 fL (80.0-100.0); Nucleated Red Blood Cells % 0.1 %
[2024-12-02 06:57] LABS: Albumin 4.3 g/dL (3.2-4.8); Anion Gap 13 (5-15); BUN/Creatinine Ratio 5.0 (10.0-20.0); Calcium 9.7 mg/dL (8.7-10.4); Carbon Dioxide 28 mmol/L (20-31); Glucose 100 mg/dL (74-106); Total Protein 6.7 g/dL (5.7-8.2)
[2024-12-02 07:05] LABS: Alanine Aminotransferase < 9 U/L (7-40); Alkaline Phosphatase 123 U/L (46-116); Bilirubin, Total 0.2 mg/dL (0.2-1.0); Blood Urea Nitrogen 39 mg/dL (9-23); Chloride 94 mmol/L (98-107); Potassium 5.3 mmol/L (3.5-5.1); Sodium 135 mmol/L (136-145)
[2024-12-02] MEDS: ALBUTEROL SULF 2.5 MG/0.5ML(0.5%) NEB SOLN NEB ONE (07:30)
[2024-12-02] MEDS: ALBUTEROL SULF 2.5 MG/0.5ML(0.5%) NEB SOLN ONE (08:25)
[2024-12-02] MEDS: SODIUM ZIRCONIUM CYCL 10 GM PAK PO ONE (12:18)
[2024-12-02] MEDS: POLYETHYLENE GLYCOL 17 GM PWDR PO ONE (12:18)
[2024-12-02] MEDS: diphenhdrAMINE-ZINC ACETATE 1 APPLIC APPL TOP ONE (14:04)
--- NOTE | 2024-12-02 14:06 | DVHPN2 ---
Progress Note - Dictate Date Seen: Dec 02, 2024 Medical Necessity Reason Pt with a Central, PICC or Fol: No Subjective No new symptoms feels better after HD vital signs Vital Sign Date Time Temp Pulse Resp B/P (MAP) Pulse Ox O2 Delivery O2 Flow Rate FiO2 12/02/24 09:00 97.6 74 20 124/91 (102) 97 97.6 12/02/24 08:25 Room Air 12/02/24 08:25 0 21 Total Intake and Output 12/01/24 12/01/24 12/02/24 15:00 23:00 07:00 Intake Total 0 ml Balance 0 ml medications Current Medications Medications Dose Ordered Sig/Caroline Route Start Time Stop Time Status Last Admin Dose Admin Acetaminophen/ Hydrocodone Bitart 1 tab Q4HP PRN PO 12/01/24 02:45 Hold 12/01/24 10:25 1 TAB Nitroglycerin 0.4 mg Q5MINP PRN SL 12/01/24 02:45 Morphine Sulfate 2 mg Q30M PRN IV 12/01/24 02:45 Nifedipine 90 mg DAILY PO 12/01/24 10:00 12/02/24 08:30 90 MG Hydralazine HCl 50 mg Q8HR PRN PO 12/01/24 04:15 12/01/24 04:59 50 MG Insulin Glargine 10 units QAM SC 12/01/24 07:00 12/02/24 06:43 10 UNITS Diagnostic Test (Pha) 1 strip IQ4HR 12/01/24 08:00 12/02/24 11:57 1 STRIP Insulin Human Regular IQ4HR SC 12/01/24 08:00 12/02/24 12:17 4 UNITS Dextrose 50 ml UD PRN IV 12/01/24 04:15 12/01/24 06:27 50 ML Heparin Sodium (Porcine) 5,000 units Q12HR SC 12/01/24 10:00 12/02/24 08:40 5,000 UNITS Metoprolol Succinate 100 mg DAILY PO 12/01/24 10:00 12/02/24 08:29 100 MG Ticagrelor 60 mg BID PO 12/01/24 10:23 12/01/24 11:18 60 MG Atorvastatin Calcium 40 mg HS PO 12/01/24 22:00 12/01/24 22:41 40 MG Sevelamer HCl 4,000 mg TIDWM PO 12/01/24 12:00 12/02/24 12:19 4,000 MG Hydralazine HCl 50 mg TID PO 12/01/24 22:00 12/02/24 06:37 50 MG Acetaminophen/ Hydrocodone Bitart 1 tab Q6HP PRN PO 12/01/24 16:15 12/02/24 08:31 1 TAB objective GENERAL: The patient is an adult gentlemen who appears to be chronically ill, in no acute distress. Alert and oriented x 3. HEENT: Unremarkable. NECK: No jugular venous distention, palpable thyroid, or lymphadenopathy. LUNGS: Clear to auscultation. CARDIOVASCULAR: Shows regular rate with an S4 gallop. ABDOMEN: Soft, nontender. No organomegaly. No ascites. EXTREMITIES: Show no clubbing or cyanosis. There is trace edema in the ankles. NEUROLOGIC: Nonfocal. SKIN: Unremarkable. laboratory and microbiology Laboratory Tests 12/02/24 13:12 12/02/24 05:59 Test 12/02/24 05:59 Range/Units Serum Glucose 100 # 74-106 mg/dL Problem List ASSESSMENT AND PLAN: * End-stage renal disease. Had HD yesterday, uremic toxins levels have improved * Hypertension. Better controlled after HD/UF * Diabetic nephropathy. * Atypical chest pain in a patient with documented history of coronary artery disease. * Mild hyponatremia. Next HD on Wednesday Recommend to continue with calcium channel radha, beta-radha, hydralazine, clonidine, and put on a strict low salt and fluid restriction. We will follow him closely. Plan discussed with: Patient KELLY CARTER MD Dec 02, 2024 14:06
[2024-12-02] MEDS: LORazepam 0.5 MG TAB PO PRN (14:49)
[2024-12-02] MEDS: SODIUM BICARB 8.4% 50Meq/50ml SYR INJ IV ONE (15:10)
--- NOTE | 2024-12-02 15:43 | DVHPNRES ---
Progress Note Date Seen: Dec 02, 2024 Resident Creating Document: JOSE FITZPATRICK RESIDENT Medical Necessity Reason Pt with a Central, PICC or Fol: No Subjective Review of Systems Patient is a 54-year-old male with prior medical history of type 2 diabetes, hypertension, ESRD on dialysis, myocardial infarction with 2 GINO, pacemaker placed 7 years ago, anxiety, marijuana use, and history of alcohol abuse, since to the ED with chief complaint of chest pain and shortness of breath. Since yesterday he had onset of increasing shortness of breath, blood test pain described as pressure, 7/10 in intensity, radiating towards the back, no aggravating nor relieving factors, associated with fatigue. he states that ran out of his hypertension medication 2 days before onset of symptoms. Due to persistence of symptoms, he sought medical care. He denies fever, abdominal pain, palpitations, nausea, vomiting, diarrhea. On evaluation in the ED, the patient was in moderate distress and hypertensive. Initial labs show CBC within normal range, sodium 134, potassium 5.6, creatinine 9.34, BUN 50, glucose 151, BNP 915.25, troponins negative. 12 lead EKG preformed in ED shows sinus rhythm with signs of old anterior infarct. chest x-ray shows mild vascular congestion, no focal consolidation, left lower lobe subsegmental atelectasis. Patient was admitted for further workup and monitoring. Personal history: type 2 diabetes mellitus, hypertension, ESRD on dialysis for the last 12 years, myocardial infarction with 2 GINO, pacemaker placed 7 years ago, anxiety Surgical: PCI, pacemaker placement, dialysis fistula formation Social: States he has smoked weed for approximately 30 years, refers 1 cigarette a week for the last 20 years, referred used to drink 140 oz beer a day for 20 years and stopped 12 years ago. states he is currently homeless. Patient seen at bedside. He is AOx4, He feels better, chest pain and shortness of breath have improved but are still present, continues to referred pain coming from lipoma on his back, and generalized itching. Patient has been persistently hypertensive since admission, however yesterday after undergoing dialysis. Patient refers persistent anxiety, for which Ativan has been given. Follow up labs show WBCs 3.8, potassium 5.3, and creatinine 7.76. Patient was given Lokelma, albuterol and bicarbonate in order to decrease potassium levels. Follow up potassium is 5. Patient had another episode of hypoglycemia overnight. We will continue to monitor. Objective vital signs Vital Sign Date Time Temp Pulse Resp B/P (MAP) Pulse Ox O2 Delivery O2 Flow Rate FiO2 12/02/24 14:03 141/83 12/02/24 13:00 97.3 77 19 92 97.3 12/02/24 08:25 Room Air 12/02/24 08:25 0 21 Total Intake and Output 12/01/24 12/01/24 12/02/24 15:00 23:00 07:00 Intake Total 0 ml Balance 0 ml medications Current Medications Medications Dose Ordered Sig/Caroline Route Start Time Stop Time Status Last Admin Dose Admin Acetaminophen/ Hydrocodone Bitart 1 tab Q4HP PRN PO 12/01/24 02:45 Hold 12/01/24 10:25 1 TAB Nitroglycerin 0.4 mg Q5MINP PRN SL 12/01/24 02:45 Morphine Sulfate 2 mg Q30M PRN IV 12/01/24 02:45 Nifedipine 90 mg DAILY PO 12/01/24 10:00 12/02/24 08:30 90 MG Hydralazine HCl 50 mg Q8HR PRN PO 12/01/24 04:15 12/01/24 04:59 50 MG Insulin Glargine 10 units QAM SC 12/01/24 07:00 12/02/24 06:43 10 UNITS Diagnostic Test (Pha) 1 strip IQ4HR 12/01/24 08:00 12/02/24 15:22 1 STRIP Insulin Human Regular IQ4HR SC 12/01/24 08:00 12/02/24 12:17 4 UNITS Dextrose 50 ml UD PRN IV 12/01/24 04:15 12/01/24 06:27 50 ML Heparin Sodium (Porcine) 5,000 units Q12HR SC 12/01/24 10:00 12/02/24 08:40 5,000 UNITS Metoprolol Succinate 100 mg DAILY PO 12/01/24 10:00 12/02/24 08:29 100 MG Ticagrelor 60 mg BID PO 12/01/24 10:23 12/01/24 11:18 60 MG Atorvastatin Calcium 40 mg HS PO 12/01/24 22:00 12/01/24 22:41 40 MG Sevelamer HCl 4,000 mg TIDWM PO 12/01/24 12:00 12/02/24 12:19 4,000 MG Hydralazine HCl 50 mg TID PO 12/01/24 22:00 12/02/24 14:03 50 MG Acetaminophen/ Hydrocodone Bitart 1 tab Q6HP PRN PO 12/01/24 16:15 12/02/24 15:08 1 TAB Lorazepam 0.5 mg Q12HP PRN PO 12/02/24 14:30 12/02/24 14:49 0.5 MG Examination General: The patient alert and oriented in person place and time. Patient following commands HEENT: Normocephalic, atraumatic, EOM intact, pinpoint pupils, pink conjunctiva, pink moist mucous membrane Respiratory/pulmonary: Bilateral chest expansion, Clear lungs bilaterally, vesicular murmurs present in almost all lung leal, no associated crackles or wheezes. Patient is connected to nasal cannula at 2 L. Cardiovascular: Normal RRR, normal S1 and S2 Abdomen: Abdomen nondistended, there is no pain to palpation in any of the abdominal quadrants, no palpable masses. Extremities: Presence of dialysis fistula in inner left arm, trill is palpable, bruit can be heard, hardened region is palpable over left inner elbow, there is no peripheral edema present at the lower extremities, pulses are palpable. Skin: Presence of generalized papules seen on back, arms, and legs. Neurological: Intact cranial nerves with no focal neurologic deficits laboratory and microbiology Laboratory Tests 12/02/24 13:12 12/02/24 05:59 Test 12/02/24 05:59 Range/Units Serum Glucose 100 # 74-106 mg/dL Problem List/Assessment/Plan Problem List/Assessment/Plan Assessments and plan: Hypertensive emergency - Hydralazine 50 mg p.o. t.i.d. - metoprolol succinate 100 mg p.o. daily - 90 mg p.o. daily - [place] 10 mg p.o. q.6 p.r.n. - Dilaudid 0.5 g IM once Acute Chest Pain, ACS ruled out, likely due to above Acute hypoxic respiratory failure, secondary to fluid overload due to above: -NC 3 L O2 Possible Acute on chronic HFrEF -Echo 02/25/2024: EF <30%, Severe TRm Severe PAH 71 mmHg, Mild MR -Echo pending -Furosemide 40 IV once ESRD on dialysis -Last dialysis on Wednesday -Nephrology was consulted: this will be arranged to be done as soon as possible, we will try to remove 3-4 L of fluid, which should help significantly with his blood pressure management. In the meantime we should continue treating him with his outpatient medications. Recommend to continue with calcium channel radha, beta-radha, hydralazine, clonidine, and put on a strict low-salt and fluid restriction. -Fluid restriction -Renal diet Hyperkalemia, resolved, likely due to above -Lokelma 10g PO once -Insulin + dextrose -Albuterol 20 mg nebulizer once Uremic pruritus likely due to above -Topical benadryl Mild hyponatremia, resolved Lipoma of the back DC x 2 GINO -S/p PCI - Brilinta 60 mg p.o. b.i.d. Type 2 Diabetes Mellitus - Lantus 10 units subcutaneous q.a.m. Diabetic nephropathy Anxiety - Ativan 0.5 mg p.o. once - Ativan 0.5 mg PO q12 hr PRN - Melatonin 5 mg once Marijuana use - Counseled on the importance of marijuana use for over 15 minutes. Tobacco use - Counseled on the importance of cessation of tobacco use for 15 minutes. History of alcohol use disorder Diet renal DVT prophylaxis: 5000 U q12 hrs SC GI prophylaxis: Not indicated Case discussed with Dr. Workman Goals of care discussed with the patient for over 25 minutes. States he understands and agrees. FULL CODE. Plan discussed with: Patient, Other (RN) My Orders My Orders Orders - JOSE FITZPATRICK Procedure Category Date Status Time Renal DIET 12/02/24 Transmitted Standard(2gna,3gk,Lopho) Breakfast * Sales Development Manager CONS 12/02/24 Transmitted Consult Diphenhdramine-Zinc PHA 12/02/24 In Process Cream (Benadryl Crea 11:30 Lorazepam Tablet PHA 12/02/24 In Process (Ativan Tablet) 14:30 Date of Service: Dec 02, 2024 Billing Provider: LEIGHTON WORKMAN MD Common Visit Codes: [id number] INP/OBS CARE(HIGH) JOSE FITZPATRICK Dec 02, 2024 15:43 LEIGHTON WORKMAN MD Dec 06, 2024 22:57
[2024-12-02] MEDS: LACTULOSE 20Gm/30ML SOLN PO ONE (21:54)
[2024-12-03] VITALS (9 sets, daily range): BP systolic 118–181; BP diastolic 72–107; PULSE 68–80; RESP 16–18; TEMP 97.1–98.2; O2SAT 95–99
[2024-12-03 07:33] LABS: Hematocrit 38.5 % (41.0-53.0); Hemoglobin 13.1 g/dL (13.5-17.5); Mean Corpuscular Hemoglobin 30.8 pg (28.0-32.0); Mean Corpuscular Volume 90.7 fL (80.0-100.0); Nucleated Red Blood Cells % 0.2 %
[2024-12-03 07:43] LABS: Anion Gap 14 (5-15); Calcium 9.4 mg/dL (8.7-10.4); Carbon Dioxide 27 mmol/L (20-31)
[2024-12-03 07:48] LABS: BUN/Creatinine Ratio 6.5 (10.0-20.0); Blood Urea Nitrogen 61 mg/dL (9-23); Chloride 92 mmol/L (98-107); Glucose 93 mg/dL (74-106); Potassium 5.5 mmol/L (3.5-5.1); Sodium 133 mmol/L (136-145)
[2024-12-03] MEDS ORDERED: LABETALOL HCL 20 MG/4 ML VL IV PRN (08:15)
--- NOTE | 2024-12-03 09:59 | DVHPN2 ---
Progress Note - Dictate Date Seen: Dec 03, 2024 Medical Necessity Reason Pt with a Central, PICC or Fol: No Subjective No new symptoms feels better after HD but his complaints are mostly about feeling "anxious" vital signs Vital Sign Date Time Temp Pulse Resp B/P (MAP) Pulse Ox O2 Delivery O2 Flow Rate FiO2 12/03/24 09:00 97.5 80 16 179/107 (131) 99 97.5 12/02/24 20:00 Room Air* 0 21 medications Current Medications Medications Dose Ordered Sig/Caroline Route Start Time Stop Time Status Last Admin Dose Admin Acetaminophen/ Hydrocodone Bitart 1 tab Q4HP PRN PO 12/01/24 02:45 Hold 12/01/24 10:25 1 TAB Nitroglycerin 0.4 mg Q5MINP PRN SL 12/01/24 02:45 Morphine Sulfate 2 mg Q30M PRN IV 12/01/24 02:45 Nifedipine 90 mg DAILY PO 12/01/24 10:00 12/03/24 08:10 90 MG Insulin Glargine 10 units QAM SC 12/01/24 07:00 12/02/24 06:43 10 UNITS Diagnostic Test (Pha) 1 strip IQ4HR 12/01/24 08:00 12/03/24 07:52 1 STRIP Insulin Human Regular IQ4HR SC 12/01/24 08:00 12/02/24 20:24 3 UNITS Dextrose 50 ml UD PRN IV 12/01/24 04:15 12/01/24 06:27 50 ML Heparin Sodium (Porcine) 5,000 units Q12HR SC 12/01/24 10:00 12/03/24 08:18 5,000 UNITS Metoprolol Succinate 100 mg DAILY PO 12/01/24 10:00 12/03/24 08:10 100 MG Ticagrelor 60 mg BID PO 12/01/24 10:23 12/03/24 08:11 60 MG Atorvastatin Calcium 40 mg HS PO 12/01/24 22:00 12/02/24 21:15 40 MG Sevelamer HCl 4,000 mg TIDWM PO 12/01/24 12:00 12/03/24 08:09 4,000 MG Hydralazine HCl 50 mg TID PO 12/01/24 22:00 12/03/24 06:19 50 MG Acetaminophen/ Hydrocodone Bitart 1 tab Q6HP PRN PO 12/01/24 16:15 12/02/24 15:08 1 TAB Lorazepam 0.5 mg Q12HP PRN PO 12/02/24 14:30 12/03/24 02:56 0.5 MG Labetalol HCl 10 mg Q4HPRN PRN IV 12/03/24 08:15 objective GENERAL: The patient is an adult gentlemen who appears to be chronically ill, in no acute distress. Alert and oriented x 3. HEENT: Unremarkable. NECK: No jugular venous distention, palpable thyroid, or lymphadenopathy. LUNGS: Clear to auscultation. CARDIOVASCULAR: Shows regular rate with an S4 gallop. ABDOMEN: Soft, nontender. No organomegaly. No ascites. EXTREMITIES: Show no clubbing or cyanosis. There is trace edema in the ankles. NEUROLOGIC: Nonfocal. SKIN: Unremarkable. laboratory and microbiology Laboratory Tests 12/03/24 06:44 Test 12/03/24 06:44 Range/Units Serum Glucose 93 74-106 mg/dL Problem List ASSESSMENT AND PLAN: * End-stage renal disease. Had HD on 12/01, uremic toxins levels have improved * Hypertension. Better controlled after HD/UF, 3.5 L removed * Diabetic nephropathy. * Atypical chest pain in a patient with documented history of coronary artery disease. * Mild hyponatremia. Patient cannot get HD again today due to lack of dialysis nursing staff for today Next HD on Wednesday Asked him to limit his water and sodium intake Continue with calcium channel radha, beta-radha, increase hydralazine to 100 mg Q8H, add clonidine 0.2 mg Q8H. We will follow him closely. Plan discussed with: Patient KELLY CARTER MD Dec 03, 2024 09:59
--- NOTE | 2024-12-03 11:11 | DVHPNRES ---
Progress Note Date Seen: Dec 03, 2024 Resident Creating Document: VERNELL DOVE Medical Necessity Reason Pt with a Central, PICC or Fol: No Subjective Review of Systems Patient is a 54-year-old male with prior medical history of type 2 diabetes, hypertension, ESRD on dialysis, myocardial infarction with 2 GINO, pacemaker placed 7 years ago, anxiety, marijuana use, and history of alcohol abuse, since to the ED with chief complaint of chest pain and shortness of breath. Since yesterday he had onset of increasing shortness of breath, blood test pain described as pressure, 7/10 in intensity, radiating towards the back, no aggravating nor relieving factors, associated with fatigue. he states that ran out of his hypertension medication 2 days before onset of symptoms. Due to persistence of symptoms, he sought medical care. He denies fever, abdominal pain, palpitations, nausea, vomiting, diarrhea. On evaluation in the ED, the patient was in moderate distress and hypertensive. Initial labs show CBC within normal range, sodium 134, potassium 5.6, creatinine 9.34, BUN 50, glucose 151, BNP 915.25, troponins negative. 12 lead EKG preformed in ED shows sinus rhythm with signs of old anterior infarct. chest x-ray shows mild vascular congestion, no focal consolidation, left lower lobe subsegmental atelectasis. Patient was admitted for further workup and monitoring. Personal history: type 2 diabetes mellitus, hypertension, ESRD on dialysis for the last 12 years, myocardial infarction with 2 GINO, pacemaker placed 7 years ago, anxiety Surgical: PCI, pacemaker placement, dialysis fistula formation Social: States he has smoked weed for approximately 30 years, refers 1 cigarette a week for the last 20 years, referred used to drink 140 oz beer a day for 20 years and stopped 12 years ago. states he is currently homeless. Patient seen at bedside. He is AOx4, He feels better, chest pain and shortness of breath have improved but are still present, continues to referred pain coming from lipoma on his back, and generalized itching. Patient has been persistently hypertensive since admission, however yesterday after undergoing dialysis. Patient refers persistent anxiety, for which Ativan has been given. Follow up labs show WBCs 3.8, potassium 5.3, and creatinine 7.76. Patient was given Lokelma, albuterol and bicarbonate in order to decrease potassium levels. Follow up potassium is 5. Patient had another episode of hypoglycemia overnight. We will continue to monitor. Patient seen at bedside. Patient feels better after hemodialysis on 12/01/24. Patient reports feeling anxious today with no new symptoms. Patient reports that he takes Ativan 10mg every 6 hours at home and requests an increased dose. Patient is scheduled hemodialysis tomorrow. Clonidine was added due to high blood pressure. Patient also reports severe fungal infection on both toenails. Objective vital signs Vital Sign Date Time Temp Pulse Resp B/P (MAP) Pulse Ox O2 Delivery O2 Flow Rate FiO2 12/03/24 09:00 97.5 80 16 179/107 (131) 99 97.5 12/02/24 20:00 Room Air* 0 21 medications Current Medications Medications Dose Ordered Sig/Caroline Route Start Time Stop Time Status Last Admin Dose Admin Acetaminophen/ Hydrocodone Bitart 1 tab Q4HP PRN PO 12/01/24 02:45 Hold 12/01/24 10:25 1 TAB Nitroglycerin 0.4 mg Q5MINP PRN SL 12/01/24 02:45 Morphine Sulfate 2 mg Q30M PRN IV 12/01/24 02:45 Nifedipine 90 mg DAILY PO 12/01/24 10:00 12/03/24 08:10 90 MG Insulin Glargine 10 units QAM SC 12/01/24 07:00 12/02/24 06:43 10 UNITS Diagnostic Test (Pha) 1 strip IQ4HR 12/01/24 08:00 12/03/24 07:52 1 STRIP Insulin Human Regular IQ4HR SC 12/01/24 08:00 12/02/24 20:24 3 UNITS Dextrose 50 ml UD PRN IV 12/01/24 04:15 12/01/24 06:27 50 ML Heparin Sodium (Porcine) 5,000 units Q12HR SC 12/01/24 10:00 12/03/24 08:18 5,000 UNITS Metoprolol Succinate 100 mg DAILY PO 12/01/24 10:00 12/03/24 08:10 100 MG Ticagrelor 60 mg BID PO 12/01/24 10:23 12/03/24 08:11 60 MG Atorvastatin Calcium 40 mg HS PO 12/01/24 22:00 12/02/24 21:15 40 MG Sevelamer HCl 4,000 mg TIDWM PO 12/01/24 12:00 12/03/24 08:09 4,000 MG Hydralazine HCl 50 mg TID PO 12/01/24 22:00 12/03/24 06:19 50 MG Acetaminophen/ Hydrocodone Bitart 1 tab Q6HP PRN PO 12/01/24 16:15 12/03/24 11:00 1 TAB Lorazepam 0.5 mg Q12HP PRN PO 12/02/24 14:30 12/03/24 02:56 0.5 MG Labetalol HCl 10 mg Q4HPRN PRN IV 12/03/24 08:15 Clonidine HCl 0.2 mg TID PO 12/03/24 14:00 Examination General: The patient alert and oriented in person place and time. Patient following commands HEENT: Normocephalic, atraumatic, EOM intact, pinpoint pupils, pink conjunctiva, pink moist mucous membrane Respiratory/pulmonary: Bilateral chest expansion, Clear lungs bilaterally, vesicular murmurs present in almost all lung leal, no associated crackles or wheezes. Patient is connected to nasal cannula at 2 L. Cardiovascular: Normal RRR, normal S1 and S2 Abdomen: Abdomen nondistended, there is no pain to palpation in any of the abdominal quadrants, no palpable masses. Extremities: Presence of dialysis fistula in inner left arm, trill is palpable, bruit can be heard, hardened region is palpable over left inner elbow, there is no peripheral edema present at the lower extremities, pulses are palpable. Skin: Presence of generalized papules seen on back, arms, and legs. Lymphoma on the back Neurological: Intact cranial nerves with no focal neurologic deficits laboratory and microbiology Laboratory Tests 12/03/24 06:44 Test 12/03/24 06:44 Range/Units Serum Glucose 93 74-106 mg/dL Labs and/or images reviewed: Labs reviewed by me, Image(s) reviewed by me Problem List/Assessment/Plan Problem List/Assessment/Plan Hypertensive emergency - Hydralazine 50 mg p.o. t.i.d. - Metoprolol succinate 100 mg p.o. daily - Labetalol 10mg q4hprn IV - Clonidine 0.2 mg p.o. t.i.d. - 90 mg p.o. daily - [place] 10 mg p.o. q.6 p.r.n. - Dilaudid 0.5 g IM once Acute Chest Pain, ACS ruled out, likely due to above Acute hypoxic respiratory failure, secondary to fluid overload due to above: -NC 3 L O2 Possible Acute on chronic HFrEF -Echo 02/25/2024: EF <30%, Severe TRm Severe PAH 71 mmHg, Mild MR -Echo pending -Furosemide 40 IV once ESRD on dialysis -Last dialysis on Wednesday -Nephrology was consulted: this will be arranged to be done as soon as possible, we will try to remove 3-4 L of fluid, which should help significantly with his blood pressure management. In the meantime we should continue treating him with his outpatient medications. Recommend to continue with calcium channel radha, beta-radha, hydralazine, clonidine, and put on a strict low-salt and fluid restriction. -Fluid restriction -Renal diet Hyperkalemia, resolved, likely due to above -Lokelma 10g PO once -Insulin + dextrose -Albuterol 20 mg nebulizer once Uremic pruritus likely due to above -Topical benadryl Mild hyponatremia, resolved Lipoma of the back AR x 2 GINO -S/p PCI - Brilinta 60 mg p.o. b.i.d. Type 2 Diabetes Mellitus - Lantus 10 units subcutaneous q.a.m. Diabetic nephropathy Anxiety - Ativan 0.5 mg p.o. once - Ativan 0.5 mg PO q12 hr PRN - Melatonin 5 mg once - Trazodone Marijuana use - Counseled on the importance of marijuana use for over 15 minutes. Tobacco use - Counseled on the importance of cessation of tobacco use for 15 minutes. History of alcohol use disorder Onychomycosis - Miconazole Vag Cream Diet renal DVT prophylaxis: 5000 U q12 hrs SC GI prophylaxis: Not indicated Case discussed with Dr. Hardy Goals of care discussed with the patient for over 25 minutes. States he understands and agrees. FULL CODE. Plan discussed with: Patient Date of Service: Dec 03, 2024 Billing Provider: LEIGHTON HARDY MD Common Visit Codes: [id number] INP/OBS CARE(HIGH) HUSEYIN DOVEMAXWELL RESIDENT Dec 03, 2024 11:11 LEIGHTON HARDY MD Dec 06, 2024 23:10
[2024-12-03] MEDS: DOCUSATE SOD 100 MG CAP PO ONE (15:25)
[2024-12-03] MEDS: LORazepam 0.5 MG TAB PO PRN (15:25)
[2024-12-03] MEDS: MICONAZOLE NITRATE 2 % VAGINAL CREAM 45 GM PV ONE (16:00)
[2024-12-03] MEDS: DOCUSATE SOD 100 MG CAP PO SCH (21:30)
[2024-12-03] MEDS ORDERED: ITRACONAZOLE 100 MG CAP PO SCH (22:00)
[2024-12-04] VITALS (10 sets, daily range): BP systolic 115–136; BP diastolic 79–86; PULSE 70–92; RESP 16–18; TEMP 96.5–98.6; O2SAT 93–100
[2024-12-04] MEDS: SODIUM CHL 0.9% 1000 ML BAG XX ONE (07:00)
[2024-12-04 08:50] LABS: Hematocrit 36.8 % (41.0-53.0); Hemoglobin 12.4 g/dL (13.5-17.5); Mean Corpuscular Hemoglobin 30.5 pg (28.0-32.0); Mean Corpuscular Volume 90.7 fL (80.0-100.0); Nucleated Red Blood Cells % 0.0 %
[2024-12-04 09:02] LABS: Anion Gap 11 (5-15); Carbon Dioxide 30 mmol/L (20-31)
[2024-12-04 09:03] LABS: Calcium 9.4 mg/dL (8.7-10.4)
[2024-12-04 09:08] LABS: BUN/Creatinine Ratio 5.3 (10.0-20.0); Chloride 93 mmol/L (98-107); Glucose 156 mg/dL (74-106); Potassium 5.4 mmol/L (3.5-5.1); Sodium 134 mmol/L (136-145)
[2024-12-04 09:09] LABS: Blood Urea Nitrogen 38 mg/dL (9-23)
[2024-12-04] MEDS ORDERED: ITRACONAZOLE 100 MG CAP PO SCH (10:00)
[2024-12-04] MEDS: ALBUTEROL SULF 2.5 MG/0.5ML(0.5%) NEB SOLN NEB ONE (10:06)
[2024-12-04] MEDS: SODIUM BICARB 8.4% 50Meq/50ml SYR INJ IV ONE (10:11)
[2024-12-04] MEDS: SODIUM ZIRCONIUM CYCL 10 GM PAK PO ONE (10:11)
--- NOTE | 2024-12-04 17:25 | DVHPN2 ---
Progress Note - Dictate Date Seen: Dec 04, 2024 Medical Necessity Reason Pt with a Central, PICC or Fol: No vital signs Vital Sign Date Time Temp Pulse Resp B/P (MAP) Pulse Ox O2 Delivery O2 Flow Rate FiO2 12/04/24 15:14 135/88 12/04/24 13:09 97.8 86 17 98 97.8 12/04/24 10:39 Room Air 12/04/24 10:39 0 21 Total Intake and Output 12/03/24 12/03/24 12/04/24 15:00 23:00 07:00 Intake Total 800 ml Balance 800 ml medications Current Medications Medications Dose Ordered Sig/Caroline Route Start Time Stop Time Status Last Admin Dose Admin Acetaminophen/ Hydrocodone Bitart 1 tab Q4HP PRN PO 12/01/24 02:45 Hold 12/01/24 10:25 1 TAB Nitroglycerin 0.4 mg Q5MINP PRN SL 12/01/24 02:45 Morphine Sulfate 2 mg Q30M PRN IV 12/01/24 02:45 Nifedipine 90 mg DAILY PO 12/01/24 10:00 12/04/24 08:37 90 MG Insulin Glargine 10 units QAM SC 12/01/24 07:00 12/04/24 06:28 10 UNITS Diagnostic Test (Pha) 1 strip IQ4HR 12/01/24 08:00 12/04/24 12:00 1 STRIP Insulin Human Regular IQ4HR SC 12/01/24 08:00 12/04/24 10:19 3 UNITS Dextrose 50 ml UD PRN IV 12/01/24 04:15 12/01/24 06:27 50 ML Heparin Sodium (Porcine) 5,000 units Q12HR SC 12/01/24 10:00 12/04/24 08:42 5,000 UNITS Metoprolol Succinate 100 mg DAILY PO 12/01/24 10:00 12/04/24 08:36 100 MG Ticagrelor 60 mg BID PO 12/01/24 10:23 12/04/24 13:06 60 MG Atorvastatin Calcium 40 mg HS PO 12/01/24 22:00 12/03/24 22:41 40 MG Sevelamer HCl 4,000 mg TIDWM PO 12/01/24 12:00 12/04/24 13:06 4,000 MG Hydralazine HCl 50 mg TID PO 12/01/24 22:00 12/04/24 15:13 50 MG Acetaminophen/ Hydrocodone Bitart 1 tab Q6HP PRN PO 12/01/24 16:15 12/04/24 15:14 1 TAB Labetalol HCl 10 mg Q4HPRN PRN IV 12/03/24 08:15 Clonidine HCl 0.2 mg TID PO 12/03/24 14:00 12/04/24 15:14 0.2 MG Docusate Sodium 100 mg BID PO 12/03/24 22:00 12/04/24 08:37 100 MG Trazodone HCl 150 mg HS PO 12/03/24 22:00 12/04/24 00:12 150 MG Lorazepam 0.5 mg TID PRN PO 12/03/24 15:00 12/04/24 10:11 0.5 MG objective GENERAL: The patient is an adult gentlemen who appears to be chronically ill, in no acute distress. Alert and oriented x 3. HEENT: Unremarkable. NECK: No jugular venous distention, palpable thyroid, or lymphadenopathy. LUNGS: Clear to auscultation. CARDIOVASCULAR: Shows regular rate with an S4 gallop. ABDOMEN: Soft, nontender. No organomegaly. No ascites. EXTREMITIES: Show no clubbing or cyanosis. There is trace edema in the ankles. NEUROLOGIC: Nonfocal. SKIN: Unremarkable. laboratory and microbiology Laboratory Tests 12/04/24 12:20 12/04/24 07:35 Test 12/04/24 07:35 Range/Units Serum Glucose 156 H 74-106 mg/dL Assessment/Plan ASSESSMENT AND PLAN: * End-stage renal disease. * Hypertension. Better controlled after HD/UF, 3.5 L removed * Diabetic nephropathy. * Atypical chest pain in a patient with documented history of coronary artery disease. * Mild hyponatremia. s/p HD Wednesday Next HD on Wednesday limit his water and sodium intake Continue with calcium channel radha, beta-radha, increase hydralazine to 100 mg Q8H, add clonidine 0.2 mg Q8H. Dietary Evaluation Review Comments: CCCHO-60 Renal Standard cardiac Diet routine homodialysis Expected Outcomes/Goals: controlled DM, less uremic syndrome, gradual wt loss Plan discussed with: Patient BHAVESH MCDONNELL MD Dec 04, 2024 17:25
--- NOTE | 2024-12-04 18:06 | DVHPNRES ---
Progress Note Date Seen: Dec 04, 2024 Resident Creating Document: JOSE FITZPATRICK RESIDENT Medical Necessity Reason Pt with a Central, PICC or Fol: No Subjective Review of Systems Patient is a 54-year-old male with prior medical history of type 2 diabetes, hypertension, ESRD on dialysis, myocardial infarction with 2 GINO, pacemaker placed 7 years ago, anxiety, marijuana use, and history of alcohol abuse, since to the ED with chief complaint of chest pain and shortness of breath. Since yesterday he had onset of increasing shortness of breath, blood test pain described as pressure, 7/10 in intensity, radiating towards the back, no aggravating nor relieving factors, associated with fatigue. he states that ran out of his hypertension medication 2 days before onset of symptoms. Due to persistence of symptoms, he sought medical care. He denies fever, abdominal pain, palpitations, nausea, vomiting, diarrhea. On evaluation in the ED, the patient was in moderate distress and hypertensive. Initial labs show CBC within normal range, sodium 134, potassium 5.6, creatinine 9.34, BUN 50, glucose 151, BNP 915.25, troponins negative. 12 lead EKG preformed in ED shows sinus rhythm with signs of old anterior infarct. chest x-ray shows mild vascular congestion, no focal consolidation, left lower lobe subsegmental atelectasis. Patient was admitted for further workup and monitoring. Personal history: type 2 diabetes mellitus, hypertension, ESRD on dialysis for the last 12 years, myocardial infarction with 2 GINO, pacemaker placed 7 years ago, anxiety Surgical: PCI, pacemaker placement, dialysis fistula formation Social: States he has smoked weed for approximately 30 years, refers 1 cigarette a week for the last 20 years, referred used to drink 140 oz beer a day for 20 years and stopped 12 years ago. states he is currently homeless. Patient seen at bedside. He is a AOx4. he states he feels better, chest pain has resolved, shortness of breath but continues to improve, States generalized itching has also improved with Benadryl cream. No adverse events overnight. Patient underwent dialysis last night, blood pressures have been more controlled since. Follow-up labs show potassium of 5.4, BUN 38, and creatinine 7.17. Patient was given Lokelma, albuterol, and bicarbonate in order to decrease potassium levels. Insulin was not used due to patient's propensity for hypoglycemia. Follow potassium is 5. The patient was to be discharged today, however chair time for tomorrow could not be secured. He will be discharged tomorrow after dialysis. Objective vital signs Vital Sign Date Time Temp Pulse Resp B/P (MAP) Pulse Ox O2 Delivery O2 Flow Rate FiO2 12/04/24 16:14 135/78 12/04/24 13:09 97.8 86 17 98 97.8 12/04/24 10:39 Room Air 12/04/24 10:39 0 21 Total Intake and Output 12/03/24 12/03/24 12/04/24 15:00 23:00 07:00 Intake Total 800 ml Balance 800 ml medications Current Medications Medications Dose Ordered Sig/Caroline Route Start Time Stop Time Status Last Admin Dose Admin Acetaminophen/ Hydrocodone Bitart 1 tab Q4HP PRN PO 12/01/24 02:45 Hold 12/01/24 10:25 1 TAB Nitroglycerin 0.4 mg Q5MINP PRN SL 12/01/24 02:45 Morphine Sulfate 2 mg Q30M PRN IV 12/01/24 02:45 Nifedipine 90 mg DAILY PO 12/01/24 10:00 12/04/24 08:37 90 MG Insulin Glargine 10 units QAM SC 12/01/24 07:00 12/04/24 06:28 10 UNITS Diagnostic Test (Pha) 1 strip IQ4HR 12/01/24 08:00 12/04/24 12:00 1 STRIP Insulin Human Regular IQ4HR SC 12/01/24 08:00 12/04/24 10:19 3 UNITS Dextrose 50 ml UD PRN IV 12/01/24 04:15 12/01/24 06:27 50 ML Heparin Sodium (Porcine) 5,000 units Q12HR SC 12/01/24 10:00 12/04/24 08:42 5,000 UNITS Metoprolol Succinate 100 mg DAILY PO 12/01/24 10:00 12/04/24 08:36 100 MG Ticagrelor 60 mg BID PO 12/01/24 10:23 12/04/24 13:06 60 MG Atorvastatin Calcium 40 mg HS PO 12/01/24 22:00 12/03/24 22:41 40 MG Sevelamer HCl 4,000 mg TIDWM PO 12/01/24 12:00 12/04/24 13:06 4,000 MG Hydralazine HCl 50 mg TID PO 12/01/24 22:00 12/04/24 15:13 50 MG Acetaminophen/ Hydrocodone Bitart 1 tab Q6HP PRN PO 12/01/24 16:15 12/04/24 15:14 1 TAB Labetalol HCl 10 mg Q4HPRN PRN IV 12/03/24 08:15 Clonidine HCl 0.2 mg TID PO 12/03/24 14:00 12/04/24 15:14 0.2 MG Docusate Sodium 100 mg BID PO 12/03/24 22:00 12/04/24 08:37 100 MG Trazodone HCl 150 mg HS PO 12/03/24 22:00 12/04/24 00:12 150 MG Lorazepam 0.5 mg TID PRN PO 12/03/24 15:00 12/04/24 10:11 0.5 MG Examination General: The patient alert and oriented in person place and time. Patient following commands HEENT: Normocephalic, atraumatic, EOM intact, pinpoint pupils, pink conjunctiva, pink moist mucous membrane Respiratory/pulmonary: Bilateral chest expansion, Clear lungs bilaterally, vesicular murmurs present in almost all lung leal, no associated crackles or wheezes. Cardiovascular: Normal RRR, normal S1 and S2 Abdomen: Abdomen nondistended, there is no pain to palpation in any of the abdominal quadrants, no palpable masses. Extremities: Presence of dialysis fistula in inner left arm, trill is palpable, bruit can be heard, hardened region is palpable over left inner elbow, there is no peripheral edema present at the lower extremities, pulses are palpable. Skin: Presence of generalized papules seen on back, arms, and legs, large lipoma present on patient's mid-back Neurological: Intact cranial nerves with no focal neurologic deficits laboratory and microbiology Laboratory Tests 12/04/24 12:20 12/04/24 07:35 Test 12/04/24 07:35 Range/Units Serum Glucose 156 H 74-106 mg/dL Problem List/Assessment/Plan Problem List/Assessment/Plan Assessments and plan: Hypertensive emergency - Hydralazine 50 mg p.o. t.i.d. - metoprolol succinate 100 mg p.o. daily - Nifedipine 90 mg p.o. daily - [place] 10 mg p.o. q.6 p.r.n. - Dilaudid 0.5 g IM once Acute Chest Pain, ACS ruled out, likely due to above Acute hypoxic respiratory failure, secondary to fluid overload due to above: -Off oxygen Possible Acute on chronic HFrEF -Echo 02/25/2024: EF <30%, Severe TRM Severe PAH 71 mmHg, Mild MR -Echo pending -Furosemide 40 IV once ESRD on dialysis -Last dialysis on Wednesday -Nephrology was consulted: this will be arranged to be done as soon as possible, we will try to remove 3-4 L of fluid, which should help significantly with his blood pressure management. In the meantime we should continue treating him with his outpatient medications. Recommend to continue with calcium channel radha, beta-radha, hydralazine, clonidine, and put on a strict low-salt and fluid restriction. -Fluid restriction -Renal diet Hyperkalemia, resolved, likely due to above -Lokelma 10g PO once -Insulin + dextrose -Albuterol 20 mg nebulizer once -Sevelamer 4000 mg protocol Uremic pruritus likely due to above -Topical benadryl Mild hyponatremia, resolved Lipoma of the back HI x 2 GINO -S/p PCI - Brilinta 60 mg p.o. b.i.d. Type 2 Diabetes Mellitus - Lantus 10 units subcutaneous q.a.m. Diabetic nephropathy Anxiety - Ativan 0.5 mg p.o. once - Ativan 0.5 mg PO q12 hr PRN - Melatonin 5 mg once Insomnia -Trazodone 150 mg HS PO Marijuana use - Counseled on the importance of marijuana use for over 14 minutes. Tobacco use - Counseled on the importance of cessation of tobacco use for 15 minutes. History of alcohol use disorder Diet renal DVT prophylaxis: 5000 U q12 hrs SC GI prophylaxis: Not indicated Case discussed with Dr. Costello Goals of care discussed with the patient for over 35 minutes. States he understands and agrees. FULL CODE. Plan discussed with: Patient My Orders My Orders Orders - JOSE FITZPATRICK RESIDENT Procedure Category Date Status Time Schedule For [facility] 12/04/24 In Process Clinic F/U 08:13 Dietary Evaluation Review Comments: CCCHO-60 Renal Standard cardiac Diet routine homodialysis Expected Outcomes/Goals: controlled DM, less uremic syndrome, gradual wt loss Date of Service: Dec 04, 2024 Billing Provider: MANOJ COSTELLO MD Common Visit Codes: [id number] INP/OBS CARE(HIGH) NANETTEAYER RESIDENT Dec 04, 2024 18:06 MANOJ COSTELLO MD Dec 05, 2024 19:20
[2024-12-05] VITALS (7 sets, daily range): BP systolic 107–155; BP diastolic 53–96; PULSE 63–76; RESP 18–19; TEMP 97.3–97.8; O2SAT 94–98
[2024-12-05 06:29] LABS: Hematocrit 36.2 % (41.0-53.0); Hemoglobin 12.2 g/dL (13.5-17.5); Mean Corpuscular Hemoglobin 30.7 pg (28.0-32.0); Mean Corpuscular Volume 91.6 fL (80.0-100.0); Nucleated Red Blood Cells % 0.0 %
[2024-12-05 06:32] LABS: Anion Gap 14 (5-15); Carbon Dioxide 28 mmol/L (20-31)
[2024-12-05 06:33] LABS: Calcium 9.6 mg/dL (8.7-10.4)
[2024-12-05 06:38] LABS: BUN/Creatinine Ratio 5.3 (10.0-20.0)
[2024-12-05 06:39] LABS: Blood Urea Nitrogen 49 mg/dL (9-23); Chloride 94 mmol/L (98-107); Glucose 138 mg/dL (74-106); Potassium 5.5 mmol/L (3.5-5.1); Sodium 136 mmol/L (136-145)
[2024-12-05] MEDS ORDERED: SODIUM CHL 0.9% 1000 ML BAG XX ONE (07:00)
[2024-12-05] MEDS: SODIUM BICARB 8.4% 50Meq/50ml SYR INJ IV ONE (08:30)
[2024-12-05] MEDS: POLYETHYLENE GLYCOL 17 GM PWDR PO ONE (11:48)
[2024-12-05] MEDS ORDERED: METO-289 PO (15:18)
[2024-12-05] MEDS ORDERED: NIFE90TA75 PO (15:18)
[2024-12-05] MEDS ORDERED: ALBU0.084 NEB (15:18)
[2024-12-05] MEDS ORDERED: INSUINJ37 SC (15:18)
[2024-12-05] MEDS ORDERED: ATOR40TA52 PO (15:18)
[2024-12-05] MEDS ORDERED: FOLITAB23 OR (15:18)
[2024-12-05] MEDS ORDERED: TRAZ1TAB12 PO (15:18)
[2024-12-05] MEDS ORDERED: HYDR-5052 PO (15:18)
[2024-12-05] MEDS ORDERED: INSU100I52 IJ (15:18)
[2024-12-05] MEDS ORDERED: TICA1TAB PO (15:18)
[2024-12-05] MEDS ORDERED: SEVE800T8 PO (15:18)
--- NOTE | 2024-12-05 16:03 | DVHDSRES ---
Discharge Summary Date of Admission Resident Creating Document: JOSE FITZPATRICK RESIDENT Dec 01, 2024 at 02:44 Date of Discharge: Dec 04, 2024 Admitting Diagnosis Shortness of breath Labs/Diagnostic Data: Laboratory Results Test 12/05/24 12:20 12/05/24 11:15 12/05/24 05:26 12/03/24 06:44 POC Glucose 56 mg/dl (70-106) White Blood Count 3.4 10^3/uL (4.4-10.8) Red Blood Count 3.95 10^6/uL (4.5-5.90) Hemoglobin 12.2 g/dL (13.5-17.5) Hematocrit 36.2 % (41.0-53.0) Mean Corpuscular Volume 91.6 fL (80.0-100.0) Mean Corpuscular Hemoglobin 30.7 pg (28.0-32.0) Mean Corpuscular Hemoglobin Concent 33.5 g/dL (32.0-36.0) Red Cell Distribution Width 18.3 % (11.8-14.3) Platelet Count 156 10^3/uL (140-450) Mean Platelet Volume 8.7 fL (6.9-10.8) Neutrophils (%) (Auto) 73.7 % (37.0-80.0) Lymphocytes (%) (Auto) 11.0 % (10.0-50.0) Monocytes (%) (Auto) 11.5 % (0.0-12.0) Eosinophils (%) (Auto) 3.0 % (0.0-7.0) Basophils (%) (Auto) 0.8 % (0.0-2.0) Neutrophils # (Auto) 2.5 10 ^3/uL (1.6-8.6) Lymphocytes # (Auto) 0.4 10 ^3/uL (0.4-5.4) Monocytes # (Auto) 0.4 10 ^3/uL (0-1.3) Eosinophils # (Auto) 0.1 10 ^3/uL (0-0.8) Basophils # (Auto) 0 10 ^3/uL (0-0.2) Nucleated Red Blood Cells 0.0 % Sodium Level 136 mmol/L (136-145) Chloride Level 94 mmol/L (98-107) Carbon Dioxide Level 28 mmol/L (20-31) Anion Gap 14 (5-15) Blood Urea Nitrogen 49 mg/dL (9-23) Creatinine 9.19 mg/dL (0.700-1.30) Glomerular Filtration Rate Calc 6 mL/min (>90) BUN/Creatinine Ratio 5.3 (10.0-20.0) Serum Glucose 138 mg/dL (74-106) Calcium Level 9.6 mg/dL (8.7-10.4) Hepatitis B Surface Antigen Negative (Negative) Test 12/02/24 05:59 11/30/24 22:03 11/30/24 21:10 Total Bilirubin 0.2 mg/dL (0.2-1.0) Aspartate Amino Transferase (AST) 13 U/L (13-40) Alanine Aminotransferase (ALT) < 9 U/L (7-40) Alkaline Phosphatase 123 U/L (46-116) Total Protein 6.7 g/dL (5.7-8.2) Albumin 4.3 g/dL (3.2-4.8) Troponin I High Sensitivity 43 ng/L (</=54) B-Type Natriuretic Peptide 915.25 pg/mL (0-100) Lipase 51 U/L (12-53) Plasma/Serum Blood Alcohol 3.2 mg/dL (<10) Other Laboratory Tests 12/05/24 05:26 Brief Hx & Hospital Course: Patient is a 54-year-old male with prior medical history of type 2 diabetes, hypertension, ESRD on dialysis, myocardial infarction with 2 GINO, pacemaker placed 7 years ago, anxiety, marijuana use, and history of alcohol abuse, since to the ED with chief complaint of chest pain and shortness of breath. Since yesterday he had onset of increasing shortness of breath, blood test pain described as pressure, 7/10 in intensity, radiating towards the back, no aggravating nor relieving factors, associated with fatigue. he states that ran out of his hypertension medication 2 days before onset of symptoms. Due to persistence of symptoms, he sought medical care. He denies fever, abdominal pain, palpitations, nausea, vomiting, diarrhea. On evaluation in the ED, the patient was in moderate distress and hypertensive. Initial labs show CBC within normal range, sodium 134, potassium 5.6, creatinine 9.34, BUN 50, glucose 151, BNP 915.25, troponins negative. 12 lead EKG preformed in ED shows sinus rhythm with signs of old anterior infarct. chest x-ray shows mild vascular congestion, no focal consolidation, left lower lobe subsegmental atelectasis. Patient was admitted for further workup and monitoring. Evaluation after admission, the patient stated that still follow up chest pain and shortness of breath however this was significantly improved. He was found to be saturating adequately on 2 L nasal cannula. Follow up labs were significant for of 10.21. Nephrology was consulted the patient underwent dialysis on Wednesday night. Post dialysis, blood pressure was more controlled. Per their recommendation, recommended use of calcium channel radha, beta-radha, hydralazine, clonidine and to put on a low-salt and fluid restriction diet. During his inpatient stay, the patient had 2 overnight episodes of hypoglycemia, however these were controlled with administration of glucose load in form of juice or crackers. Additionally, during his stay patient was hyperkalemic multiple occasions, this was controlled using hyperkalemic protocol treated with bicarbonate, albuterol, and Lokelma. Insulin was not used during these times due to the patient's propensity for hypoglycemia. Patient was dialyzed again on Wednesday night, this once again helped control his blood pressure as well as improve currently readings. The patient has progressed well. Evaluation today, the patient stated that he felt well chest pain and shortness of breath had improved significantly. He had slept well, was tote. Vitals and follow-up labs have been stable. Saturating adequately on room air. The patient underwent dialysis this morning. He is considered stable for discharge home with new prescription for home medications. Recommendations on dietary and lifestyle modifications have been made for optimization of comorbid conditions. He has been given a follow-up appointment in the discharge clinic in 1 week for further monitoring and follow-up. All recommendations and medications have been thoroughly explained to the patient. He states he understands and agrees. Personal history: type 2 diabetes mellitus, hypertension, ESRD on dialysis for the last 12 years, myocardial infarction with 2 GINO, pacemaker placed 7 years ago, anxiety Surgical: PCI, pacemaker placement, dialysis fistula formation Social: States he has smoked weed for approximately 30 years, refers 1 cigarette a week for the last 20 years, referred used to drink 140 oz beer a day for 20 years and stopped 12 years ago. states he is currently homeless. Physical Exam: General: The patient alert and oriented in person place and time. Patient following commands HEENT: Normocephalic, atraumatic, EOM intact, pinpoint pupils, pink conjunctiva, pink moist mucous membrane Respiratory/pulmonary: Bilateral chest expansion, Clear lungs bilaterally, vesicular murmurs present in almost all lung leal, no associated crackles or wheezes. Cardiovascular: Normal RRR, normal S1 and S2 Abdomen: Abdomen nondistended, there is no pain to palpation in any of the abdominal quadrants, no palpable masses. Extremities: Presence of dialysis fistula in inner left arm, trill is palpable, bruit can be heard, hardened region is palpable over left inner elbow, there is no peripheral edema present at the lower extremities, pulses are palpable. Skin: Presence of generalized papules seen on back, arms, and legs, large lipoma present on patient's mid-back Neurological: Intact cranial nerves with no focal neurologic deficits Case discussed with Dr. Costello Goals of care discussed with the patient for over 25 minutes. States he understands and agrees. Consults/Reason for consult Nephrology was consulted due to suspicion of fluid overload Operations or Procedures CHEST RADIOGRAPH Indication: SOB and chest pain eval lung parenchyma Technique: Single frontal view of the chest was obtained Comparison: XY CHEST PORTABLE on DOS: 08/14/24, XY CHEST XRAY 1 VIEW on DOS: 07/30/24, XY CHEST PORTABLE on DOS: 07/16/24, XY CHEST XRAY 1 VIEW on DOS: 12/22/23, XY CHEST PORTABLE on DOS: 12/20/23 FINDINGS: Lines and Tubes: Left chest pacer. Lungs: No focal consolidation. Mild pulmonary vascular congestion. Left lower lobe subsegmental atelectasis Pleura: No effusion. No pneumothorax. Cardiomediastinal contours: Unremarkable Bones: No acute osseous abnormality. IMPRESSION: 1. Mild pulmonary vascular congestion. No focal consolidation. Left lower lobe subsegmental atelectasis. Condition at Discharge: Stable Final Diagnosis/Problems List Hypertensive Emergency Acute Chest Pain, ACS ruled out, likely due to above Acute hypoxic respiratory failure, secondary to fluid overload due to above: Possible Acute on chronic HFrEF ESRD on dialysis Hyperkalemia, resolved, likely due to above Uremic pruritus likely due to above Mild hyponatremia, resolved Lipoma of the back MT x 2 GINO Type 2 Diabetes Mellitus Diabetic nephropathy Anxiety Insomnia Marijuana use Tobacco use History of alcohol use disorder Discharge Disposition: Home Discharge Instruct/Medications Diet: Renal Activity: No Restrictions, As Tolerated Follow Up/Referral: Follow up in discharge clinic in 1 week Medications: Albuterol 1 vial neb Q 4 PRN Insert ROS a 10 1 tab p.o. daily Benadryl cream application topical Vitamin-D 00530 units p.o. Q 7 days Folic acid 1 tablet p.o. daily hydralazine 50 mg p.o. t.i.d. Lantus Lispro Metoprolol 1 tablet p.o. daily Nifedipine 1 tab p.o. daily Ticagrelor 60 mg p.o. b.i.d. Scheduled Atorvastatin Calcium (Atorvastatin Calcium), 1 TAB PO DAILY Diphenhydramine HCl (Allergy Relief), 25 MG PO BID Ergocalciferol (Vitamin D 79833 Unit), 50,000 UNIT PO Q7D Folic Acid-Vitamin B6-Vitamin (B Complex/Folic Acid), 1 CAP OR DAILY Hydralazine HCl (Hydralazine Hydrochloride), 50 MG PO TID Hydrocodone-Acetaminophen (Hydrocodone Bitartrate/AC 10-325 mg), 1 TAB PO QID, (Reported) Insulin Glargine (Lantus Solostar), 100 UNIT SC QPM Insulin Lispro (Insulin Lispro), 100 UNIT IJ TID Metoprolol Succinate (Metoprolol Succinate Er), 1 TAB PO DAILY Nifedipine (Nifedipine Er), 1 TAB PO DAILY Patients Own Medication (Patients Own Medication), 1 PATCH TD DAILY, (Reported) Sevelamer Carbonate (Sevelamer Carbonate), 5 TAB PO TIDWM, (Reported) Sevelamer Carbonate (Renvela), 3 TAB PO TID Ticagrelor Base (Brilinta), 60 MG PO BID Trazodone HCl (Trazodone Hydrochloride), 50 MG PO HS Trazodone Hcl (Trazodone Hcl), 1 TAB PO QPM Scheduled PRN Acetaminophen (Acetaminophen), 650 MG PO Q6HP PRN Albuterol Sulfate (Albuterol Sulfate), 1 VIAL NEB Q4HPRN PRN Diphenhydramine-Zinc Acetate (Benadryl Cream), 1 APPLIC TOP Q6HPRN PRN Lorazepam (Ativan Tablet), 1 TAB PO TID PRN for ANXIETY, (Reported) Miscellaneous Medications Trazodone Hcl (Trazodone Hcl), 150 MG PO, (Reported) Discontinued Medications Albuterol Sulfate (Ventolin Mdi), 90 MCG IN Q6HP PRN Atorvastatin Calcium (Atorvastatin Calcium), 1 TAB PO HS, (Reported) B-Complex W/ C & Folic Acid (Mayra-Evan), 1 TAB PO DAILY Hydralazine Hcl (Hydralazine Hcl), 50 MG PO TID, (Reported) Insulin Glargine (Lantus), 15 UNIT SC HS, (Reported) Insulin Lispro (Human) (Humalog), 2-3 UNIT SC TID, (Reported) Metoprolol Succinate (Toprol Xl), 100 MG PO DAILY Nifedipine (Nifedipine Er), 1 TAB PO DAILY, (Reported) Sevelamer Carbonate (Renvela), 3 TAB PO TID Ticagrelor Base (Brilinta), 60 MG PO BID Discharge Statement: "Patient was advised to return to the ER or call 911 if any headaches, dizziness, shortness of breath, chest pain, abdominal pain, bleeding, fevers, or worsening of medical condition. Patient was counseled about treatment plan, medications, possible side effects, patientverbalized understanding. All questions were answered to the best of my ability. This discharge took greater then 30 minutes in planning, reviewing documentation, counseling the patient, and discussing with other team members." ASSESSMENT ASSESSMENT Assessment Hypertensive Emergency Date of Service: Dec 05, 2024 Billing Provider: MANOJ COSTELLO MD Common Visit Codes: 18879-ANA/OBS DISCH DAY >30min JOSE FITZPATRICK RESIDENT Dec 05, 2024 16:03 MANOJ COSTELLO MD Dec 05, 2024 19:21
--- NOTE | 2024-12-05 16:37 | DVHPN2 ---
Progress Note - Dictate Date Seen: Dec 05, 2024 Medical Necessity Reason Pt with a Central, PICC or Fol: No Subjective no new symptoms vital signs Vital Sign Date Time Temp Pulse Resp B/P (MAP) Pulse Ox O2 Delivery O2 Flow Rate FiO2 12/05/24 13:07 97.8 68 19 138/96 (110) 96 97.8 12/05/24 10:00 Room Air 12/05/24 10:00 0.0 12/05/24 10:00 21 medications Current Medications Medications Dose Ordered Sig/Caroline Route Start Time Stop Time Status Last Admin Dose Admin Acetaminophen/ Hydrocodone Bitart 1 tab Q4HP PRN PO 12/01/24 02:45 Hold 12/01/24 10:25 1 TAB Nitroglycerin 0.4 mg Q5MINP PRN SL 12/01/24 02:45 Morphine Sulfate 2 mg Q30M PRN IV 12/01/24 02:45 Nifedipine 90 mg DAILY PO 12/01/24 10:00 12/05/24 08:21 90 MG Insulin Glargine 10 units QAM SC 12/01/24 07:00 12/05/24 06:45 10 UNITS Diagnostic Test (Pha) 1 strip IQ4HR 12/01/24 08:00 12/05/24 12:00 1 STRIP Insulin Human Regular IQ4HR SC 12/01/24 08:00 12/05/24 08:33 3 UNITS Dextrose 50 ml UD PRN IV 12/01/24 04:15 12/01/24 06:27 50 ML Heparin Sodium (Porcine) 5,000 units Q12HR SC 12/01/24 10:00 12/04/24 08:42 5,000 UNITS Metoprolol Succinate 100 mg DAILY PO 12/01/24 10:00 12/05/24 08:20 100 MG Ticagrelor 60 mg BID PO 12/01/24 10:23 12/05/24 08:19 60 MG Atorvastatin Calcium 40 mg HS PO 12/01/24 22:00 12/04/24 23:04 40 MG Sevelamer HCl 4,000 mg TIDWM PO 12/01/24 12:00 12/05/24 11:48 4,000 MG Hydralazine HCl 50 mg TID PO 12/01/24 22:00 12/05/24 06:33 50 MG Acetaminophen/ Hydrocodone Bitart 1 tab Q6HP PRN PO 12/01/24 16:15 12/05/24 06:34 1 TAB Labetalol HCl 10 mg Q4HPRN PRN IV 12/03/24 08:15 Clonidine HCl 0.2 mg TID PO 12/03/24 14:00 12/05/24 06:33 0.2 MG Docusate Sodium 100 mg BID PO 12/03/24 22:00 12/05/24 08:21 100 MG Trazodone HCl 150 mg HS PO 12/03/24 22:00 12/04/24 23:33 150 MG Lorazepam 0.5 mg TID PRN PO 12/03/24 15:00 12/05/24 08:33 0.5 MG objective GENERAL: The patient is an adult gentlemen who appears to be chronically ill, in no acute distress. Alert and oriented x 3. HEENT: Unremarkable. NECK: No jugular venous distention, palpable thyroid, or lymphadenopathy. LUNGS: Clear to auscultation. CARDIOVASCULAR: Shows regular rate with an S4 gallop. ABDOMEN: Soft, nontender. No organomegaly. No ascites. EXTREMITIES: Show no clubbing or cyanosis. There is trace edema in the ankles. NEUROLOGIC: Nonfocal. SKIN: Unremarkable. laboratory and microbiology Laboratory Tests 12/05/24 05:26 Test 12/05/24 05:26 Range/Units Serum Glucose 138 H 74-106 mg/dL Assessment/Plan ASSESSMENT AND PLAN: * End-stage renal disease. * Hypertension. Better controlled after HD/UF, 3.5 L removed * Diabetic nephropathy. * Atypical chest pain in a patient with documented history of coronary artery disease. * Mild hyponatremia. Plan: HD today Will continue HD on TTS schedule limit his water and sodium intake Continue with calcium channel radha, beta-radha, hydralazine to 100 mg Q8H, clonidine 0.2 mg Q8H. Dietary Evaluation Review Comments: CCCHO-60 Renal Standard cardiac Diet routine homodialysis Expected Outcomes/Goals: controlled DM, less uremic syndrome, gradual wt loss Plan discussed with: Patient BHAVESH MCDONNELL MD Dec 05, 2024 16:37
== END 2024-12-05 18:30 | disposition home or self-care (01) | DRG 291 ==
LOC: ER 20:24 → OVERFLOW 12-01 02:44 → TELE-CENTR 12-01 17:12
PROVIDERS: ADMIT Internal Medicine Geriatric Medicine; ATTEND Internal Medicine Geriatric Medicine
PROC: 5A1D70Z Performance of Urinary Filtration, Intermittent, Less than 6 Hours Per Day (ICD-10-PCS; principal; 2024-12-01)
PROC: 5A1D70Z Performance of Urinary Filtration, Intermittent, Less than 6 Hours Per Day (ICD-10-PCS; 2024-12-03)
PROC: 5A1D70Z Performance of Urinary Filtration, Intermittent, Less than 6 Hours Per Day (ICD-10-PCS; 2024-12-05)
DX: I13.2 Hypertensive heart and chronic kidney disease with heart failure and with stage 5 chronic kidney disease, or end stage renal disease (principal); I50.23 Acute on chronic systolic (congestive) heart failure; J96.01 Acute respiratory failure with hypoxia; N18.6 End stage renal disease; I16.1 Hypertensive emergency; E87.1 Hypo-osmolality and hyponatremia; E11.22 Type 2 diabetes mellitus with diabetic chronic kidney disease; E11.65 Type 2 diabetes mellitus with hyperglycemia; E87.5 Hyperkalemia; F17.210 Nicotine dependence, cigarettes, uncomplicated; F41.9 Anxiety disorder, unspecified; F10.10 Alcohol abuse, uncomplicated; G47.00 Insomnia, unspecified; I25.10 Atherosclerotic heart disease of native coronary artery without angina pectoris; J45.909 Unspecified asthma, uncomplicated; Z99.2 Dependence on renal dialysis; Z88.7 Allergy status to serum and vaccine; Z79.4 Long term (current) use of insulin; Z79.899 Other long term (current) drug therapy; Z95.0 Presence of cardiac pacemaker; I25.2 Old myocardial infarction; Y90.9 Presence of alcohol in blood, level not specified
CPT/HCPCS: 36415; 71045; 80048; 80053; 80320; 82962; 83690; 83880; 84132; 84484; 85025; 87340; 90935; 93005; 93306; 94640; 96374; G0378; J1815; Q0162

== ENCOUNTER 2024-12-10 00:06 | Inpatient (IN) | payer MEDICARE, MEDICAID ==
[~2024-12-10] VITALS: Ht 172.7 cm; Wt 72.0 kg
[~2024-12-10 00:06] MED LIST changes: +ALBU0.084 NEB; -ALBUAER3 IN; -B-CO-5 PO; +FOLITAB23 OR; +HYDR-5052 PO; -HYDR50TA47 PO; -INSLANTI SC; -INSLISPI SC; +INSU100I52 IJ; +INSUINJ37 SC; +METO-289 PO; -METO-6 PO; +TICA1TAB PO; -TICA90TA PO
--- NOTE | 2024-12-10 00:44 | ED.PDOC ---
History of Present Illness HPI Comments 54-year-old male who came to ER for back pains. Patient does have history of hypertension end-stage renal disease, currently on dialysis every Wednesday. He was able to finishes dialysis session yesterday. States he was dragging a box yesterday, and shortly afterwards he started having lower back pains. Denies any acute trauma to the back. Chief Complaint: Back Pain Time Seen by MD: 00:43 Primary Care Provider: NO CURRENT PRIMARY Reviewed Notes: Nurses Notes Allergies: Coded Allergies: Pneumococcal Vaccines (Verified Allergy, Unknown, 07/17/24) Home Meds Active Scripts Trazodone Hcl (Trazodone Hcl) 150 Mg Tab, 1 TAB PO QPM for 30 Days, #30 TAB 1 Refill Prov:SAGEBLAIR RESIDENT 12/05/24 Ticagrelor Base (Brilinta) 60 Mg Tab, 60 MG PO BID for 30 Days, #60 TAB Prov:ALONABLAIR RESIDENT 12/05/24 Sevelamer Carbonate (Renvela) 800 Mg Tab, 3 TAB PO TID for 30 Days, #270 TAB 3 Refills Prov:SAGE,BLAIR RESIDENT 12/05/24 Nifedipine (Nifedipine Er) 90 Mg Tab, 1 TAB PO DAILY for 30 Days, #30 TAB 5 Refills Prov:ALONABLAIR RESIDENT 12/05/24 Metoprolol Succinate (Metoprolol Succinate Er) 50 Mg Tab, 1 TAB PO DAILY for 30 Days, #30 TAB 5 Refills Prov:ALONABLAIR [facility] [place] 2[place] 12/05/24 Insulin Lispro (Insulin Lispro) 100 Unit/Ml Inj, 100 UNIT IJ TID for 30 Days, #3 INJ 2-3 units subcutaneous t.i.d.. Always check your blood glucose before administering insulin, If blood sugar < 60 - have 15-20 g of glucose (8 oz cranberry juice, orange juice, apple juice, small carton of milk) go to the ER/call 911 Prov:ALONABLAIR RESIDENT 12/05/24 Insulin Glargine (Lantus Solostar) 100 Unit/Ml Inj, 100 UNIT SC QPM for 30 Days, #3 INJ 15 units in the evening. Always check your blood glucose before administering insulin, If blood sugar < 60 - have 15-20 g of glucose (8 oz cranberry juice, orange juice, apple juice, small carton of milk) go to the ER/call 911 Prov:BLAIR SAGE [facility] [place]NOTE 2] 12/05/24 Hydralazine HCl (Hydralazine Hydrochloride) 50 Mg Tab, 50 MG PO TID for 30 Days, #90 TAB Prov:BLAIR SAGE [facility] [place]NOTE 2] 12/05/24 Folic Acid-Vitamin B6-Vitamin (B Complex/Folic Acid) Tab, 1 CAP OR DAILY for 30 Days, #30 TAB Prov:BLAIR SAGE [facility] [place]NOTE 2] 12/05/24 Atorvastatin Calcium (ATORVASTATIN CALCIUM) 40 Mg Tab, 1 TAB PO DAILY for 30 Days, #30 TAB 5 Refills Prov:BLAIR SAGE [facility] [place]NOTE 2] 12/05/24 Albuterol Sulfate (Albuterol Sulfate) 0.083 % Neb, 1 VIAL NEB Q4HPRN PRN for 30 Days, #50 VIAL Prov:BLAIR SAGE [facility] [place]NOTE 2] 12/05/24 Trazodone HCl (Trazodone Hydrochloride) 50 Mg Tab, 50 MG PO HS for 20 Days, #20 TAB 1 Refill Prov:CELSO HARRIS RESDIENT 08/16/24 Diphenhydramine HCl (Allergy Relief) 25 Mg/10 Ml Liq, 25 MG PO BID for 15 Days, #30 LIQ 1 Refill Prov:CELSO HARRIS RESDIENT 08/01/24 Diphenhydramine-Zinc Acetate (Benadryl Cream) 1 Applic Ap, 1 APPLIC TOP Q6HPRN PRN for 30 Days, #120 APPLIC Prov:DAVISALANA RESIDENT 07/30/23 Acetaminophen (Acetaminophen) 325 Mg Tab, 650 MG PO Q6HP PRN for 30 Days, #240 TAB Prov:DAVISALANA RESIDENT 07/30/23 Ergocalciferol (VITAMIN D 31007 UNIT) 50,000 [place], [address] UNIT PO Q7D for 30 Days, #10 CAP Prov:ALANA CANNON RESIDENT 07/30/23 Reported Medications Hydrocodone-Acetaminophen (Hydrocodone Bitartrate/AC 10-325 mg) 1 Tab Tab, 1 TAB PO QID, TAB 08/01/24 Lorazepam (ATIVAN TABLET) 0.5 Mg Tb, 1 TAB PO TID PRN for ANXIETY, #90 TAB 10/16/23 Patients Own Medication (PATIENTS OWN MEDICATION) ., 1 PATCH TD DAILY PTS OWN MED-OBTAIN FROM PT AND SEND TO RX DRUG: FREQ: RX# EXP: DATE DISP: TECH: RPH: 10/16/23 Sevelamer Carbonate (Sevelamer Carbonate) 800 Mg Tab, 5 TAB PO TIDWM, TAB 10/16/23 Trazodone Hcl (Trazodone Hcl) 150 Mg Tab, 150 MG PO for for sleep, MG 09/19/23 Discontinued Reported Medications Insulin Glargine (Lantus) 100 Unit/Ml Inj, 15 UNIT SC HS, INJ 10/16/23 Nifedipine (Nifedipine Er) 90 Mg Tab, 1 TAB PO DAILY, #30 TAB 5 Refills 07/26/21 Hydralazine Hcl (Hydralazine Hcl) 50 Mg Tab, 50 MG PO TID for 30 Days, MG 07/26/21 Insulin Lispro (Human) (Humalog) 100 Unit/Ml Inj, 2-3 UNIT SC TID, INJ 12/20/19 Atorvastatin Calcium (ATORVASTATIN CALCIUM) 40 Mg Tab, 1 TAB PO HS, #30 TAB 5 Refills 03/27/19 Discontinued Scripts Sevelamer Carbonate (Renvela) 800 Mg Tab, 3 TAB PO TID for 20 Days, #180 TAB 2 R efills Prov:CELSO HARRIS RESDIENT 08/01/24 Ticagrelor Base (BRILINTA) 90 Mg Tab, 60 MG PO BID, #60 TAB 5 Refills Prov:LEIGHTON HARDY MD 11/06/22 B-Complex W/ C & Folic Acid (Mayra-Evan) Tab, 1 TAB PO DAILY for 30 Days, #30 TAB Prov:LEIGHTON HARDY MD 11/06/22 Albuterol Sulfate (VENTOLIN MDI) 90 Mcg Ih, 90 MCG IN Q6HP PRN, #1 INH 180 MCG Q6H NEEDED FOR SHORTNESS OF BREATH AND WHEEZING Prov:NOAM CORREA MD 04/26/21 Metoprolol Succinate (Toprol Xl) 50 Mg Tab, 100 MG PO DAILY for 30 Days, #60 TAB Prov:NOAM CORREA MD 12/30/19 Information Source: Patient Mode of Arrival: Ambulatory Severity: Moderate Timing: Hours Duration: Since onset Past Medical History PAST MEDICAL HISTORY: Anxiety, Asthma, CAD, CHF, Depression, DM, ESRD, High Lipids, HTN, HI Surgical History: Pacemaker, PTCA Family History Family History: Reviewed,noncontributory to illness, Family hx of DM, Family hx of heart razia, Family hx of HTN Social History Smoker: Cigarettes Alcohol: Occasionally Drugs: Cocaine Lives In: Home Constitutional: denies: chills, diaphoresis, fatigue, fever, malaise, sweats, weakness, others EENTM: denies: blurred vision, double vision, ear bleeding, ear discharge, ear drainage, ear pain, ear ringing, eye pain, eye redness, hearing loss, mouth pain, mouth swelling, nasal discharge, nose bleeding, nose congestion, nose pain, photophobia, tearing, throat pain, throat swelling, voice changes, others Respiratory: denies: cough, hemoptysis, orthopnea, SOB at rest, shortness of breath, SOB with excertion, stridor, wheezing, others Cardiovascular: denies: chest pain, dizzy spells, diaphoresis, Dyspnea on exertion, edema, irregular heart beat, left arm pain, lightheadedness, palpitati ons, PND, syncope, others Gastrointestinal: denies: abdomen distended, abdominal pain, blood streaked bowels, constipated, diarrhea, dysphagia, difficulty swallowing, hematemesis, melena, nausea, poor appetite, poor fluid intake, rectal bleeding, rectal pain, vomiting, others Genitourinary: denies: burning, dysuria, flank pain, frequency, hematuria, incontinence, penile discharge, penile sore, pain, testicle pain, testicle swelling, urgency, others Neurological: denies: dizziness, fainting, headache, left sided numbness, left sided weakness, numbness, paresthesia, pre-existing deficit, right sided numbness, right sided weakness, seizure, speech problems, tingling, tremors, weakness, others Musculoskeletal: reports: back pain; denies: gout, joint pain, joint swelling, muscle pain, muscle stiffness, neck pain, others Integumetry: denies: bruises, change in color, change in hair/nails, dryness, laceration, lesions, lumps, rash, wounds, others Allergic/Immunocompromised: denies: Difficulty Healing, Frequent Infections, Hives, Itching, others Hematologic/Lymphatic: denies: anemia, blood clots, easy bleeding, easy bruising, swollen glands, others Endocrine: denies: excessive hunger, excessive sweating, excessive thirst, excessive urination, flushing, intolerance to cold, intolerance to heat, unexplained weight gain, unexplained weight loss, others Psychiatric: denies: anxiety, bipolar disorder, depression, hopeless, panic disorder, schizophrenia, sleepless, suicidal, others Physical Exam General Appearance: No Apparent Distress, Normal HEENT: Normal ENT Inspection, Pharynx Normal, TMs Normal Neck: Full Range of Motion, Non-Tender, Normal, Normal Inspection Respiratory: Chest Non-Tender, Lungs Clear, No Accessory Muscle Use, No Respiratory Distress, Normal Breath Sounds Cardiovascular: No Edema, No JVD, No Murmur, No Gallop, Normal Peripheral Pulses, Regular Rate/Rhythm Breast Exam: Deferred Gastrointestinal: No Organomegaly, Non Tender, No Pulsatile Mass, Normal Bowel Sounds, Soft Genitalia: Deferred Pelvic: Deferred Rectal: Deferred Extremities: No calf tenderness, Normal capillary refill, Normal inspection, Normal range of motion, Non-tender, No pedal edema Musculoskeletal : Apperance: Normal Neurologic: Alert, finish saw operator II-XII nml as Tested, No Motor Deficits, Normal Affect, Normal Mood, No Sensory Deficits Cerebellar Function: Normal Reflexes: Normal Skin: Dry, Normal Color, Warm Lymphatic: No Adenopathy Was a procedure done? Was a procedure done?: No Differential Dx Considerations may include: Lumbar strain, musculoskeletal pain, end-stage renal disease, hypertension X-Ray, Labs, Meds, VS Vital Signs Date Time Temp Pulse Resp B/P (MAP) Pulse Ox O2 Delivery O2 Flow Rate FiO2 12/10/24 00:17 88 12/10/24 00:08 95.0 90 18 141/86 98 95.0 PROCEDURE(s): LUMB2 - LUMBAR SPINE 3 VIEW REASON: back pain ORDER NUMBER(s): [id number], ACCESSION NUMBER(s): [id number] INDICATION: back pain TECHNIQUE: 3 views of the lumbar spine were obtained. COMPARISON: None. FINDINGS: No evidence of acute fracture or compression deformity. Mild S shaped curvature with normal lordosis. No significant listhesis. Minimal multilevel spondylosis most pronounced at L3-L4. Atherosclerosis. The imaged osseous pelvis is unremarkable. IMPRESSION: 1. Mild spondylosis without acute finding of the lumbar spine. Time of 1ST Reevaluation: 00:41 Reevaluation 1ST: Unchanged Time of 2ND Reevaluation: 03:09 Reevaluation 2ND: Unchanged Patient Education/Counseling: Diagnosis, Treatment, Prognosis, Need For Follow Up Family Education/Counseling: No Family Present Comments Patient reports that his back pain is uncontrolled with his Sacul at home and Motrin. He has no to carry him at home and he can not go home. The L-spine x- ray appears to be unremarkable. He will be admitted for pain control. There is no alarming signs such as fever weakness or numbness of the legs. Or bowel or bladder dysfunctions. SEPSIS Sepsis Screen Date sepsis recognized/suspect: Dec 10, 2024 Time Sepsis recognized/suspect: 0013 Recent Procedure: No On Antibiotic Therapy: No Respiratory Rate >20: No Heart Rate >90: No Temp<36 C (96.8 F) or >38.3 C: No SBP <90 or MAP <65 mmHG: No New Acute Mental Status Change: No Is the patient on CPAP, BIPAP,: No Physician Orders Electrocardigram (12/10/24 00:24) Lumbar Spine 3 View (12/10/24 00:36) Vital Signs Date Time Temp Pulse Resp B/P (MAP) Pulse Ox O2 Delivery O2 Flow Rate FiO2 12/10/24 00:17 88 12/10/24 00:08 95.0 90 18 141/86 98 95.0 Departure 1 Departure Time of Disposition: 03:10 Impression: Primary Impression: Intractable low back pain Disposition: ADMITTED INPATIENT Admit to: Med Surg Condition: Stable Critical Care Note Critical Care Time?: No Stability Stability form required: No Heart Score Heart Score: Heart Score Response (Comments) Value History N/A 0 EKG N/A 0 Age N/A 0 Risk Factors N/A 0 Troponin N/A 0 Total 0 I personally scribed for TRICIA SANCHEZ MD ([facility]) on 12/10/24 at 00:44. Electronically submitted by Ludwin Renteria ([email or web address]). I personally scribed for TRICIA SANCHEZ MD ([facility]) on 12/10/24 at 02:12. Electronically submitted by Ludwin Renteria ([email or web address]). TRICIA SANCHEZ MD Dec 10, 2024 00:44
--- NOTE | 2024-12-10 01:42 | DVH ---
INDICATION: back pain TECHNIQUE: 3 views of the lumbar spine were obtained. COMPARISON: None. FINDINGS: No evidence of acute fracture or compression deformity. Mild S shaped curvature with normal lordosis . No significant listhesis. Minimal multilevel spondylosis most pronounced at L3-L4. Atherosclerosis. The imaged osseous pelvis is unremarkable. IMPRESSION: 1. Mild spondylosis without acute finding of the lumbar spine.
[2024-12-10] MEDS: MORPHINE SULFATE 4 MG/ML SYR/VIAL IV ONE (03:15)
[2024-12-10 03:53] LABS: Hematocrit 40.7 % (41.0-53.0); Hemoglobin 13.7 g/dL (13.5-17.5); Mean Corpuscular Hemoglobin 30.8 pg (28.0-32.0); Mean Corpuscular Volume 91.8 fL (80.0-100.0); Nucleated Red Blood Cells % 0.1 %
[2024-12-10 04:19] LABS: Alanine Aminotransferase 16 U/L (7-40); Alkaline Phosphatase 101 U/L (46-116)
[2024-12-10 04:20] LABS: Albumin 4.4 g/dL (3.2-4.8); Anion Gap 15 (5-15); BUN/Creatinine Ratio 6.2 (10.0-20.0); Bilirubin, Total 0.2 mg/dL (0.2-1.0); Blood Urea Nitrogen 48 mg/dL (9-23); Calcium 8.7 mg/dL (8.7-10.4); Carbon Dioxide 25 mmol/L (20-31); Chloride 93 mmol/L (98-107); Glucose 210 mg/dL (74-106); Potassium 5.2 mmol/L (3.5-5.1); Sodium 133 mmol/L (136-145); Total Protein 7.0 g/dL (5.7-8.2)
[2024-12-10] MEDS ORDERED: DEXTROSE (50%) 50ML SYRG IV PRN (05:15)
[2024-12-10] MEDS ORDERED: ALBUTEROL SULF 2.5 MG/0.5ML(0.5%) NEB SOLN NEB PRN (05:15)
[2024-12-10] MEDS: ONDANSETRON HCL 4 MG/2 ML VIAL IV ONE (05:18)
[2024-12-10] MEDS: MORPHINE SULFATE 4 MG/ML SYR/VIAL IM ONE (05:18)
[2024-12-10] MEDS: diazePAM 2 MG TAB PO ONE (05:31)
[2024-12-10] MEDS ORDERED: NITROGLYCERIN 0.4 MG SL TAB SL PRN (05:45)
--- NOTE | 2024-12-10 05:54 | DVHHP2 ---
History of Present Illness Reason for Visit: Intractable low back pain History of Present Illness The patient is a 54-year-old male with multiple past medical history including CHF, ESRD on hemodialysis -, CHF, asthma, and hypertension who presented to [facility] ED with complaint of severe back pain. Patient reports that he was dragging a box yesterday, afterwards he started having lower back pain, rating 9/10 numeric scale, getting worse today that prompted this visit. Patient was seen and evaluated in the ED, laboratory data shows WBC 5.5, platelets 160, sodium 133, potassium 5.2, BUN 48, creatinine 7.75, glucose 210, calcium 8.7, blood pressure 141/86, heart rate 88, temperature 95.0 F, O2 saturation 98% on room air. Lumbar spine x-ray revealing mild spondylosis without acute finding. Please see medication orders section in the computer. On my assessment, patient denied chest pain, no headache, no dizziness, no diaphoresis, no shortness of breath, no nausea, no vomiting, no fever, no chills. Patient was admitted for further evaluation and medical management. Past Medical History Anxiety, Asthma, CAD, CHF, Depression, DM, ESRD, High Lipids, HTN, [place] Past Surgical History Pacemaker, PTCA Family History Reviewed, noncontributory to the management of this case. Past Social History The patient lives at home, smokes cigarettes, drinks alcohol occasionally, uses cocaine. Review of Systems Constitutional: Yes: Weakness; No: Fever, Chills, Sweats, Malaise, Other Eyes: No: Pain, Vision change, Conjunctivae inflammation, Eyelid inflammation, Other, Redness ENT: No: Ear pain, Ear discharge, Nose pain, Nose discharge, Nose congestion, Mouth pain, Mouth swelling, Throat pain, Throat swelling, Other Respiratory: No: Cough, Dry, Shortness of breath, SOB with excertion, Wheezing, Hemoptysis, Pleuritic Pain, Sputum, Wheezing, Other Cardiovascular: No: Chest Pain, Palpitations, Orthopnea, Paroxysmal Noc. Dyspnea, Edema, Lt Headedness, Other Gastrointestinal: No: Nausea, Vomiting, Abdominal Pain, Diarrhea, Constipation, Melena, Hematochezia, Other Genitourinary: No Dysuria, No Frequency, No Incontinence, No Hematuria, No Retention; Other (On hemodialysis, av fistula left upper extremity.) Musculoskeletal: other (Left upper extremity AV fistula), back pain (Lower); No: neck pain, shoulder pain, arm pain, hand pain, leg pain, foot pain Skin: No: Rash, Lesions, Jaundice, Bruising, Other Neurological: No: Weakness, Numbness, Incoordination, Change in speech, Confusion, Seizures, Other Allergies: Coded Allergies: Pneumococcal Vaccines (Verified Allergy, Unknown, 07/17/24) Medications Current Medications Medications Dose Ordered Sig/Caroline Route Start Time Stop Time Status Last Admin Dose Admin Sevelamer HCl 800 mg TIDWM PO 12/10/24 08:00 Multivit/Ca Carb/ B Cmplx/FA/Prenat 1 tab DAILY PO 12/10/24 10:00 Atorvastatin Calcium 20 mg HS PO 12/10/24 22:00 Aspirin 81 mg DAILY PO 12/10/24 10:00 Metoprolol Tartrate 50 mg BID PO 12/10/24 10:00 Hydralazine HCl 10 mg Q6HP PRN IV 12/10/24 05:15 Albuterol 2.5 mg Q4HPRN PRN NEB 12/10/24 05:15 Diagnostic Test (Pha) 1 strip IQ4HR 12/10/24 08:00 Insulin Human Regular IQ4HR SC 12/10/24 08:00 Dextrose 50 ml UD PRN IV 12/10/24 05:15 Sodium Chloride 10 ml Q8HR IV 12/10/24 06:00 Acetaminophen/ Hydrocodone Bitart 1 tab Q4HP PRN PO 12/10/24 05:15 Ondansetron HCl 4 mg Q4HP PRN IV 12/10/24 05:15 Docusate Sodium 100 mg BIDPRN PRN PO 12/10/24 05:15 Acetaminophen 650 mg Q6HP PRN PO 12/10/24 05:15 Exam Vital Signs Vital Signs Date Time Temp Pulse Resp B/P (MAP) Pulse Ox O2 Delivery O2 Flow Rate FiO2 12/10/24 05:19 98.8 81 18 139/85 (103) 98 98.8 General Appearance: Alert, Oriented X3, Cooperative, No acute distress HEENT: Atraumatic, PERRLA, EOMI, Mucous membr. moist/pink Respiratory: Clear to auscultation, Normal air movement Cardiovascular: Regular rate, Normal S1, Normal S2, No murmurs Abdominal: Normal bowel sounds, Soft, No tenderness, No hepatospenomegaly, No masses Extremities: No clubbing, No cyanosis, No edema, Normal pulses, Other (Lower back tenderness) Skin: No rashes, No breakdown, No significant lesion Neuro: Normal speech, Normal tone, Sensation intact, Cranial nerves 3-12 NL, Reflexes 2+, Other (Generalized weakness) Psych/Mental Status: Mental status NL, Mood NL Labs/Xrays Labs Test 12/10/24 00:20 Range/Units White Blood Count 5.5 # 4.4-10.8 10^3/uL Red Blood Count 4.43 L 4.5-5.90 10^6/uL Hemoglobin 13.7 13.5-17.5 g/dL Hematocrit 40.7 #L 41.0-53.0 % Mean Corpuscular Volume 91.8 80.0-100.0 fL Mean Corpuscular Hemoglobin 30.8 28.0-32.0 pg Mean Corpuscular Hemoglobin Concent 33.5 32.0-36.0 g/dL Red Cell Distribution Width 18.8 H 11.8-14.3 % Platelet Count 160 140-450 10^3/uL Mean Platelet Volume 9.6 6.9-10.8 fL Neutrophils (%) (Auto) 78.9 37.0-80.0 % Lymphocytes (%) (Auto) 9.1 L 10.0-50.0 % Monocytes (%) (Auto) 10.6 0.0-12.0 % Eosinophils (%) (Auto) 0.4 0.0-7.0 % Basophils (%) (Auto) 1.0 0.0-2.0 % Neutrophils # (Auto) 4.4 1.6-8.6 10 ^3/uL Lymphocytes # (Auto) 0.5 0.4-5.4 10 ^3/uL Monocytes # (Auto) 0.6 0-1.3 10 ^3/uL Eosinophils # (Auto) 0 0-0.8 10 ^3/uL Basophils # (Auto) 0.1 0-0.2 10 ^3/uL Nucleated Red Blood Cells 0.1 % Sodium Level 133 L 136-145 mmol/L Potassium Level 5.2 H 3.5-5.1 mmol/L Chloride Level 93 L 98-107 mmol/L Carbon Dioxide Level 25 20-31 mmol/L Anion Gap 15 5-15 Blood Urea Nitrogen 48 H 9-23 mg/dL Creatinine 7.75 H 0.700-1.30 mg/dL Glomerular Filtration Rate Calc 8 >90 mL/min BUN/Creatinine Ratio 6.2 L 10.0-20.0 Serum Glucose 210 H 74-106 mg/dL Calcium Level 8.7 8.7-10.4 mg/dL Total Bilirubin 0.2 0.2-1.0 mg/dL Aspartate Amino Transferase (AST) 21 13-40 U/L Alanine Aminotransferase (ALT) 16 7-40 U/L Alkaline Phosphatase 101 46-116 U/L Total Protein 7.0 5.7-8.2 g/dL Albumin 4.4 3.2-4.8 g/dL PATIENT: CODY SUAREZ ACCT: [id number] UNIT: [id number] : 1970 LOC: ER ROOM / BED: / AGE / SEX: 54 / M ADM STATUS: REG ER SERVICE [id number] ORDERING PHYSICIAN: TRICIA SANCHEZ MD PROCEDURE(s): LUMB2 - LUMBAR SPINE 3 VIEW REASON: back pain ORDER NUMBER(s): [id number], ACCESSION NUMBER(s): [id number] INDICATION: back pain TECHNIQUE: 3 views of the lumbar spine were obtained. COMPARISON: None. FINDINGS: No evidence of acute fracture or compression deformity. Mild S shaped curvature with normal lordosis. No significant listhesis. Minimal multilevel spondylosis most pronounced at L3-L4. Atherosclerosis. The imaged osseous pelvis is unremarkable. IMPRESSION: 1. Mild spondylosis without acute finding of the lumbar spine. SEPSIS Sepsis Screen Date sepsis recognized/suspect: Dec 10, 2024 Time Sepsis recognized/suspect: 0013 Recent Procedure: No On Antibiotic Therapy: No Respiratory Rate >20: No Heart Rate >90: No Temp<36 C (96.8 F) or >38.3 C: No SBP <90 or MAP <65 mmHG: No New Acute Mental Status Change: No Is the patient on CPAP, BIPAP,: No Physician Orders Electrocardigram (12/10/24 00:24) Lumbar Spine 3 View (12/10/24 00:36) B-Type Natriuretic Peptide (12/10/24 05:10) Complete Blood Count (12/10/24 05:10) Comprehensive Metabolic Panel (12/10/24 05:10) Sevelamer (Renagel) (12/10/24 08:00) B-Complex W/ C & Folic Tablet (Nephro-Vi (12/10/24 10:00) Atorvastatin (Lipitor) (12/10/24 22:00) Aspirin Tablet (12/10/24 10:00) Metoprolol Tartrate Tablet (Lopressor Ta (12/10/24 10:00) Hydralazine Injection (Apresoline Inject (12/10/24 05:15) Albuterol Medneb (Ventolin Medneb) (12/10/24 05:15) Glucose Blood (Accu-Chek Comfort Curve T (12/10/24 08:00) Insulin R (Human) (Insulin R) (12/10/24 08:00) Dextrose 50% Syringe (12/10/24 05:15) Allergies (12/10/24 05:10) Code Status (12/10/24 05:10) Renal Standard(2gna,3gk,Lopho) (12/10/24 Breakfast) Sodium Chloride Lock (Saline Lock Ns) (12/10/24 06:00) Oxygen Per Hour (12/10/24 05:10) Hydrocodone-Acet 5/325mg Tab ([place] 5/32 (12/10/24 05:15) Ondansetron Hcl (Zofran) (12/10/24 05:15) Docusate Sodium Capsule (Colace Capsule) (12/10/24 05:15) Complete Blood Count (12/11/24 04:00) Comprehensive Metabolic Panel (12/11/24 04:00) Condition: Serious (12/10/24 05:10) Acetaminophen Tablet (Tylenol Tablet) (12/10/24 05:15) Bedrest With Bathroom Privileg (12/10/24 05:10) Sequential Compression Device (12/10/24 ) *Dr. Rhonda Mcclain (12/10/24 05:35) Admit (12/10/24 05:35) Nitroglycerin Sublingual (Ntrostat Subli (12/10/24 05:45) Morphine Sulfate Injection (12/10/24 05:45) Stat Ekg For Chest Pain (12/10/24 05:35) Notify Md Of Changes From Base (12/10/24 05:35) [employer] Cann[employer]er For 24 Hours (12/10/24 05:35) Emergency Dysrhythmia Protocol (12/10/24 05:35) Rhythm Strips Once Every Shift (12/10/24 05:35) Oxygen By Nasal Cannula (12/10/24 05:35) Vital Signs Date Time Temp Pulse Resp B/P (MAP) Pulse Ox O2 Delivery O2 Flow Rate FiO2 12/10/24 05:19 98.8 81 18 139/85 (103) 98 98.8 12/10/24 05:18 81 18 139/85 12/10/24 00:17 88 12/10/24 00:08 95.0 90 18 141/86 98 95.0 Laboratory Tests Test 12/10/24 00:20 White Blood Count 5.5 10^3/uL (4.4-10.8) # Medications Medications Dose Ordered Sig/Caroline Route Start Time Stop Time Status Last Admin Dose Admin Diazepam 2 mg ONCE ONCE PO 12/10/24 00:45 12/10/24 00:46 DC 12/10/24 05:31 2 MG Morphine Sulfate 4 mg ONCE ONCE IM 12/10/24 00:45 12/10/24 00:46 DC 12/10/24 05:18 4 MG Ondansetron HCl 4 mg ONCE ONCE IV 12/10/24 03:15 12/10/24 03:16 DC 12/10/24 05:18 4 MG Assessment/Plan Assessment/Plan Intractable low back pain Electrolyte imbalance End-stage renal disease on hemodialysis Diabetes mellitus with hyperglycemia Generalized weakness Plan 1. Admit to telemetry unit 2. Breathing treatment 3. Pain control management 4. Management of fluids and electrolytes 5. Consultation for Nephrology 6. Diagnostic tests chest x-ray 7. DVT prophylaxis on SCDs 8. Repeat labs CBC, CMP in a.m. 9. Continue with current medical management 10. Treatment plan discussed with patient and RN. Patient verbalized understanding. Plan discussed with: Patient, Other (RN) My Orders Orders - HOWARD NORTH DNP Procedure Category Date Status Time B-Type Natriuretic LAB 12/10/24 Logged Peptide 05:10 Complete Blood Count LAB 12/10/24 Logged 05:10 Comprehensive LAB 12/10/24 Logged Metabolic Panel 05:10 Sevelamer (Renagel) PHA 12/10/24 In Process 08:00 B-Complex W/ C & PHA 12/10/24 In Process Folic Tablet 10:00 Atorvastatin (Lipitor) PHA 12/10/24 In Process 22:00 Aspirin Tablet PHA 12/10/24 In Process 10:00 Metoprolol Tartrate PHA 12/10/24 In Process Tablet (Lopressor Ta 10:00 Hydralazine Injection PHA 12/10/24 In Process (Apresoline Inject 05:15 Albuterol Medneb PHA 12/10/24 In Process (Ventolin Medneb) 05:15 Glucose Blood PHA 12/10/24 In Process (Accu-Chek Comfort 08:00 Insulin R (Human) PHA 12/10/24 In Process (Insulin R) 08:00 Dextrose 50% Syringe PHA 12/10/24 In Process 05:15 Allergies JADE 12/10/24 In Process 05:10 Code Status CODE 12/10/24 Transmitted 05:10 Renal DIET 12/10/24 Transmitted Standard(2gna,3gk,Lopho) Breakfast Sodium Chloride Lock PHA 12/10/24 In Process (Saline Lock Ns) 06:00 Oxygen Per Hour RT 12/10/24 Transmitted 05:10 Hydrocodone-Acet PHA 12/10/24 In Process 5/325mg Tab ([place] 05:15 Ondansetron Hcl PHA 12/10/24 In Process (Zofran) 05:15 Docusate Sodium PHA 12/10/24 In Process Capsule (Colace 05:15 Complete Blood Count LAB 12/11/24 Verified 04:00 Comprehensive LAB 12/11/24 Verified Metabolic Panel 04:00 Condition: Serious JADE 12/10/24 In Process 05:10 Acetaminophen Tablet PHA 12/10/24 In Process (Tylenol Tablet) 05:15 Bedrest With Bathroom JADE 12/10/24 In Process Privileg 05:10 Sequential JADE 12/10/24 In Process Compression Device *Dr. Rhonda Longoria -Reg CONS 12/10/24 Verified Sarahi 05:35 Admit ADMIT 12/10/24 Verified 05:35 Nitroglycerin PHA 12/10/24 Verified Sublingual (Ntrostat 05:45 Morphine Sulfate PHA 12/10/24 Verified Injection 05:45 Stat Ekg For Chest JADE 12/10/24 Verified Pain 05:35 Notify Md Of Changes JADE 12/10/24 Verified From Base 05:35 [employer] Cannoneer For [facility] [place] 12/10/24 Verified 24 Hours 05:35 Emergency Dysrhythmia [facility] [place] 12/10/24 Verified Protocol 05:35 Rhythm Strips Once [facility] [place] 12/10/24 Verified Every Shift 05:35 Oxygen By Nasal 12/10/24 Verified Cannula 05:35 Problem List: (1) Intractable low back pain (2) Electrolyte imbalance (3) End-stage renal disease on hemodialysis (4) Diabetes mellitus with hyperglycemia (5) Generalized weakness Date of Service: Dec 10, 2024 Billing Provider: HOWARD NORTH DNP Common Visit Codes: [id number] INP/OBS CARE (HIGH) HOWARD NORTH DNP Dec 10, 2024 05:54
[2024-12-10 06:02] LABS: Hematocrit 41.3 % (41.0-53.0); Hemoglobin 14.0 g/dL (13.5-17.5); Mean Corpuscular Hemoglobin 31.0 pg (28.0-32.0); Mean Corpuscular Volume 91.7 fL (80.0-100.0); Nucleated Red Blood Cells % 0.0 %
[2024-12-10] MEDS: SODIUM CHLOR 0.9% PF (SALINE LOCK) 10ML VIAL/SYR IV SCH (06:13)
[2024-12-10 06:15] LABS: Alanine Aminotransferase 16 U/L (7-40); Albumin 4.6 g/dL (3.2-4.8); Alkaline Phosphatase 105 U/L (46-116); Anion Gap 18 (5-15); BUN/Creatinine Ratio 6.7 (10.0-20.0); Calcium 8.7 mg/dL (8.7-10.4); Carbon Dioxide 23 mmol/L (20-31); Glucose 85 mg/dL (74-106); Potassium 4.9 mmol/L (3.5-5.1); Total Protein 7.7 g/dL (5.7-8.2)
[2024-12-10 06:25] LABS: Bilirubin, Total 0.2 mg/dL (0.2-1.0); Blood Urea Nitrogen 55 mg/dL (9-23); Chloride 93 mmol/L (98-107); Sodium 134 mmol/L (136-145)
[2024-12-10] MEDS: InsuLIN REG 1unit/0.01ml Soln (100units/ml) SC SCH (08:43)
[2024-12-10] MEDS: ACCU-CHEK COMFORT CURVE STRIP VI SCH (08:43)
[2024-12-10 08:45] VITALS: PULSE 89; RESP 18; O2SAT 97
[2024-12-10] MEDS: SEVELAMER 800 MG TAB PO SCH (08:51)
[2024-12-10] MEDS: HYDROcodone-ACET 5/325MG TAB PO PRN (08:52)
[2024-12-10] MEDS: hydrALAZINE HCL 20 MG/ML VL IV PRN (08:52)
[2024-12-10 09:09] VITALS: BP 142/102; PULSE 81; RESP 18; TEMP 98.8; O2SAT 98
[2024-12-10] MEDS: B-COMPLEX W/ C & FOLIC ACID(NEPHROVITE TAB) PO SCH (10:14)
[2024-12-10] MEDS: METOPROLOL TARTRATE 50 MG TAB PO SCH (10:15)
--- NOTE | 2024-12-10 13:07 | DVHINCON2 ---
Date of service: Dec 10, 2024 Referring Physician Selam Theodore Reason for Consultation Dialysis History of Present Illness 54 Y/O M with history of ESRD on hemodialysis, CAD, CHF, asthma, and hypertension who presented to [facility] ED with complaint of severe back pain. K is 4.9 mmol/l this morning. hemodynamically stable. consulted for dialysis. Past Medical History Anxiety, Asthma, CAD, CHF, Depression, DM, ESRD, High Lipids, HTN, [place] Past Surgical History AVF creation Allergies: Coded Allergies: Pneumococcal Vaccines (Verified Allergy, Unknown, 07/17/24) Home Meds Active Scripts Trazodone Hcl (Trazodone Hcl) 150 Mg Tab, 1 TAB PO QPM for 30 Days, #30 TAB 1 Refill Prov:BLAIR SAGE RESIDENT 12/05/24 Ticagrelor Base (Brilinta) 60 Mg Tab, 60 MG PO BID for 30 Days, #60 TAB Prov:BLAIR SAGE [facility] 12/05/24 Sevelamer Carbonate (Renvela) 800 Mg Tab, 3 TAB PO TID for 30 Days, #270 TAB 3 Refills Prov:BLAIR SAGE [facility] 12/05/24 Nifedipine (Nifedipine Er) 90 Mg Tab, 1 TAB PO DAILY for 30 Days, #30 TAB 5 Refills Prov:BLAIR SAGE RESIDENT 12/05/24 Metoprolol Succinate (Metoprolol Succinate Er) 50 Mg Tab, 1 TAB PO DAILY for 30 Days, #30 TAB 5 Refills Prov:BLAIR SAGE [facility] 12/05/24 Insulin Lispro (Insulin Lispro) 100 Unit/Ml Inj, 100 UNIT IJ TID for 30 Days, #3 INJ 2-3 units subcutaneous t.i.d.. Always check your blood glucose before administering insulin, If blood sugar < 60 - have 15-20 g of glucose (8 oz cranberry juice, orange juice, apple juice, small carton of milk) go to the ER/call 911 Prov:BLAIR SAGE [facility] 12/05/24 Insulin Glargine (Lantus Solostar) 100 Unit/Ml Inj, 100 UNIT SC QPM for 30 Days, #3 INJ 15 units in the evening. Always check your blood glucose before administering insulin, If blood sugar < 60 - have 15-20 g of glucose (8 oz cranberry juice, orange juice, apple juice, small carton of milk) go to the ER/call 911 Prov:BLAIR SAGE [facility] 12/05/24 Hydralazine HCl (Hydralazine Hydrochloride) 50 Mg Tab, 50 MG PO TID for 30 Days, #90 TAB Prov:BLAIR SAGE [facility] 12/05/24 Folic Acid-Vitamin B6-Vitamin (B Complex/Folic Acid) Tab, 1 CAP OR DAILY for 30 Days, #30 TAB Prov:BLAIR SAGE [facility] 12/05/24 Atorvastatin Calcium (ATORVASTATIN CALCIUM) 40 Mg Tab, 1 TAB PO DAILY for 30 Days, #30 TAB 5 Refills Prov:BLAIR SAGE [facility] 12/05/24 Albuterol Sulfate (Albuterol Sulfate) 0.083 % Neb, 1 VIAL NEB Q4HPRN PRN for 30 Days, #50 VIAL Prov:BLAIR SAGE [facility] 12/05/24 Trazodone HCl (Trazodone Hydrochloride) 50 Mg Tab, 50 MG PO HS for 20 Days, #20 TAB 1 Refill Prov:CELSO HARRIS RESDIENT 08/16/24 Diphenhydramine HCl (Allergy Relief) 25 Mg/10 Ml Liq, 25 MG PO BID for 15 Days, #30 LIQ 1 Refill Prov:CELSO HARRIS RESDIENT 08/01/24 Diphenhydramine-Zinc Acetate (Benadryl Cream) 1 Applic Ap, 1 APPLIC TOP Q6HPRN PRN for 30 Days, #120 APPLIC Prov:DAVISALANA RESIDENT 07/30/23 Acetaminophen (Acetaminophen) 325 Mg Tab, 650 MG PO Q6HP PRN for 30 Days, #240 TAB Prov:ALANA CANNON RESIDENT 07/30/23 Ergocalciferol (VITAMIN D 70445 UNIT) 50,000 [place], [address] UNIT PO Q7D for 30 Days, #10 CAP Prov:ALANA CANNON [facility] 07/30/23 Reported Medications Hydrocodone-Acetaminophen (Hydrocodone Bitartrate/AC 10-325 mg) 1 Tab Tab, 1 TAB PO QID, TAB 08/01/24 Lorazepam (ATIVAN TABLET) 0.5 Mg Tb, 1 TAB PO TID PRN for ANXIETY, #90 TAB 10/16/23 Patients Own Medication (PATIENTS OWN MEDICATION) ., 1 PATCH TD DAILY PTS OWN MED-OBTAIN FROM PT AND SEND TO RX DRUG: FREQ: RX# EXP: DATE DISP: TECH: RPH: 10/16/23 Sevelamer Carbonate (Sevelamer Carbonate) 800 Mg Tab, 5 TAB PO TIDWM, TAB 10/16/23 Trazodone Hcl (Trazodone Hcl) 150 Mg Tab, 150 MG PO for for sleep, MG 09/19/23 Discontinued Reported Medications Insulin Glargine (Lantus) 100 Unit/Ml Inj, 15 UNIT SC HS, INJ 10/16/23 Nifedipine (Nifedipine Er) 90 Mg Tab, 1 TAB PO DAILY, #30 TAB 5 Refills 07/26/21 Hydralazine Hcl (Hydralazine Hcl) 50 Mg Tab, 50 MG PO TID for 30 Days, MG 07/26/21 Insulin Lispro (Human) (Humalog) 100 Unit/Ml Inj, 2-3 UNIT SC TID, INJ 12/20/19 Atorvastatin Calcium (ATORVASTATIN CALCIUM) 40 Mg Tab, 1 TAB PO HS, #30 TAB 5 Refills 03/27/19 Discontinued Scripts Sevelamer Carbonate (Renvela) 800 Mg Tab, 3 TAB PO TID for 20 Days, #180 TAB 2 Refills Prov:CELSO HARRIS RESDIENT 08/01/24 Ticagrelor Base (BRILINTA) 90 Mg Tab, 60 MG PO BID, #60 TAB 5 Refills Prov:LEIGHTON HARDY MD 11/06/22 B-Complex W/ C & Folic Acid (Mayra-Evan) Tab, 1 TAB PO DAILY for 30 Days, #30 TAB Prov:LEIGHTON HARDY MD 11/06/22 Albuterol Sulfate (VENTOLIN MDI) 90 Mcg Ih, 90 MCG IN Q6HP PRN, #1 INH 180 MCG Q6H NEEDED FOR SHORTNESS OF BREATH AND WHEEZING Prov:NOAM CORREA MD 04/26/21 Metoprolol Succinate (Toprol Xl) 50 Mg Tab, 100 MG PO DAILY for 30 Days, #60 TAB Prov:NOAM CORREA MD 12/30/19 Current Medications Current Medications Medications (Trade) Dose Ordered Sig/Caroline Route PRN Reason Start Time Stop Time Status Last Admin Sevelamer HCl (Renagel) 800 mg TIDWM PO 12/10/24 08:00 12/10/24 13:14 Multivit/Ca Carb/ B Cmplx/FA/Prenat (Nephro-Evan Tablet) 1 tab DAILY PO 12/10/24 10:00 12/10/24 10:14 Atorvastatin Calcium (Lipitor) 20 mg HS PO 12/10/24 22:00 Aspirin 81 mg DAILY PO 12/10/24 10:00 12/10/24 10:15 Metoprolol Tartrate (Lopressor Tablet) 50 mg BID PO 12/10/24 10:00 12/10/24 10:15 Hydralazine HCl (Apresoline Injection) 10 mg Q6HP PRN IV SBP>150 12/10/24 05:15 12/10/24 08:52 Albuterol (Ventolin Medneb) 2.5 mg Q4HPRN PRN NEB SHORTNESS OF BREATH 12/10/24 05:15 Diagnostic Test (Pha) (Accu-Chek Comfort Curve T) 1 strip IQ4HR 12/10/24 08:00 12/10/24 12:17 Insulin Human Regular (InsuLIN R) IQ4HR SC 12/10/24 08:00 12/10/24 12:16 Dextrose 50 ml UD PRN IV Blood Sugar LESS THAN 60 12/10/24 05:15 Sodium Chloride (Saline Lock Ns) 10 ml Q8HR IV 12/10/24 06:00 12/10/24 13:14 Acetaminophen/ Hydrocodone Bitart ([place] 5/325MG Tab) 1 tab Q4HP PRN PO MODERATE PAIN (4-6 PAIN SCALE) 12/10/24 05:15 12/10/24 08:52 Ondansetron HCl (Zofran) 4 mg Q4HP PRN IV NAUSEA / VOMITING 12/10/24 05:15 Docusate Sodium (Colace Capsule) 100 mg BIDPRN PRN PO FOR CONSTIPATION 12/10/24 05:15 Acetaminophen (Tylenol Tablet) 650 mg Q6HP PRN PO PAIN SCALE 1-3 OR TEMP>100.4 12/10/24 05:15 Nitroglycerin (Ntrostat Sublingual) 0.4 mg Q5MINP PRN SL FOR CHEST PAIN 12/10/24 05:45 Morphine Sulfate 2 mg Q30M PRN IV FOR CHEST PAIN 12/10/24 05:45 Morphine Sulfate 2 mg Q4HPRN PRN IV MODERATE PAIN (4-6 PAIN SCALE) 12/10/24 13:45 UNV Family History: Arthritis G8 MOTHER Diabetes mellitus G8 MOTHER G8 SISTER Hypertension G8 MOTHER Review of Systems as per HPI, all other systems reviewed and are negative H&P Exam Vital Signs/I&O Vital Sign Date Time Temp Pulse Resp B/P (MAP) Pulse Ox O2 Delivery O2 Flow Rate FiO2 12/10/24 12:19 98.9 75 18 153/96 (115) 97 98.9 12/10/24 08:45 Room Air* 0 21 Physical Exam gen: NAD HEENT: NC, AT LungS: CTA b/l Cardiac: RRR, no murmur Abd: soft, no distention Ext: no edema Labs/Diagnostic Data Labs/Diagnostic Data Laboratory Tests Test 12/10/24 12:11 12/10/24 05:50 12/10/24 00:20 Range/Units POC Glucose 199 H 70-106 mg/dl White Blood Count 7.9 # 5.5 # 4.4-10.8 10^3/uL Red Blood Count 4.51 4.43 L 4.5-5.90 10^6/uL Hemoglobin 14.0 13.7 13.5-17.5 g/dL Hematocrit 41.3 40.7 #L 41.0-53.0 % Mean Corpuscular Volume 91.7 91.8 80.0-100.0 fL Mean Corpuscular Hemoglobin 31.0 30.8 28.0-32.0 pg Mean Corpuscular Hemoglobin Concent 33.8 33.5 32.0-36.0 g/dL Red Cell Distribution Width 18.5 H 18.8 H 11.8-14.3 % Platelet Count 170 160 140-450 10^3/uL Mean Platelet Volume 8.8 9.6 6.9-10.8 fL Neutrophils (%) (Auto) 82.7 H 78.9 37.0-80.0 % Lymphocytes (%) (Auto) 4.3 L 9.1 L 10.0-50.0 % Monocytes (%) (Auto) 10.9 10.6 0.0-12.0 % Eosinophils (%) (Auto) 0.6 0.4 0.0-7.0 % Basophils (%) (Auto) 1.5 1.0 0.0-2.0 % Neutrophils # (Auto) 6.5 4.4 1.6-8.6 10 ^3/uL Lymphocytes # (Auto) 0.3 L 0.5 0.4-5.4 10 ^3/uL Monocytes # (Auto) 0.9 0.6 0-1.3 10 ^3/uL Eosinophils # (Auto) 0 0 0-0.8 10 ^3/uL Basophils # (Auto) 0.1 0.1 0-0.2 10 ^3/uL Nucleated Red Blood Cells 0.0 0.1 % Sodium Level 134 L 133 L 136-145 mmol/L Potassium Level 4.9 5.2 H 3.5-5.1 mmol/L Chloride Level 93 L 93 L 98-107 mmol/L Carbon Dioxide Level 23 25 20-31 mmol/L Anion Gap 18 H 15 5-15 Blood Urea Nitrogen 55 H 48 H 9-23 mg/dL Creatinine 8.27 H 7.75 H 0.700-1.30 mg/dL Glomerular Filtration Rate Calc 7 8 >90 mL/min BUN/Creatinine Ratio 6.7 L 6.2 L 10.0-20.0 Serum Glucose 85 # 210 H 74-106 mg/dL Calcium Level 8.7 8.7 8.7-10.4 mg/dL Total Bilirubin 0.2 0.2 0.2-1.0 mg/dL Aspartate Amino Transferase (AST) 20 21 13-40 U/L Alanine Aminotransferase (ALT) 16 16 7-40 U/L Alkaline Phosphatase 105 101 46-116 U/L B-Type Natriuretic Peptide 1017.11 0-100 pg/mL Total Protein 7.7 7.0 5.7-8.2 g/dL Albumin 4.6 4.4 3.2-4.8 g/dL Assessment ESRD on HD Chronic systolic CHF s/p pacemaker DM type II HTN HLD Anemia of CKD Secondary hyperparathyroidism Hyperphosphatemia Plan: HD Wednesday continue on MWF schedule pain control WYATT as needed. goal Hb: 10 -11 g/dl resume binders continue BP meds Plan discussed with: Patient BHAVESH MCDONNELL MD Dec 10, 2024 13:07
[2024-12-10] MEDS: MORPHINE SULFATE INJ 2 MG/ml SYRG IV PRN (14:24)
[2024-12-10 18:41] VITALS: PULSE 84; RESP 17; O2SAT 100
--- NOTE | 2024-12-10 18:46 | DVHPN2 ---
Subjective Patient complaining of low back pain and requesting muscle relaxant. Changes from previous H/P or p: No Changes Eyes: No Pain, No Vision change, No Conjunctivae inflammation, No Eyelid inflammation, No Other, No Redness ENT: No Ear pain, No Ear discharge, No Nose pain, No Nose discharge, No Nose congestion, No Mouth pain, No Mouth swelling, No Throat pain, No Throat swelling, No Other Cardiovascular: No Chest Pain, No Palpitations, No Orthopnea, No Paroxysmal Noc. Dyspnea, No Edema, No Lt Headedness, No Other Respiratory: No Cough, No Dry, No Shortness of breath, No SOB with excertion, No Wheezing, No Hemoptysis, No Pleuritic Pain, No Sputum, No Other Gastrointestinal: No Nausea, No Vomiting, No Abdominal Pain, No Diarrhea, No Constipation, No Melena, No Hematochezia, No Other Genitourinary: No Dysuria, No Frequency, No Incontinence, No Hematuria, No Retention; Other (On hemodialysis, av fistula left upper extremity.) Musculoskeletal: other (Left upper extremity AV fistula); No neck pain, No shoulder pain, No arm pain; back pain (Lower); No hand pain, No leg pain, No foot pain Skin: No Rash, No Lesions, No Jaundice, No Bruising, No Other Objective Vitals Vital Signs Date Time Temp Pulse Resp B/P (MAP) Pulse Ox O2 Delivery O2 Flow Rate FiO2 12/10/24 18:41 84 17 164/99 (120) 100 12/10/24 14:24 98.6 98.6 12/10/24 08:45 Room Air* 0 21 Exam HEENT pupils are reactive Neck is supple CV is S1-S2 regular rate and rhythm Respiratory diminished breath sound bases GI positive bowel sounds Extremity no edema [employer] no motor deficit Medications Current Medications Medications Dose Ordered Sig/Caroline Route Start Time Stop Time Status Last Admin Dose Admin Sevelamer HCl 800 mg TIDWM PO 12/10/24 08:00 12/10/24 13:14 800 MG Multivit/Ca Carb/ B Cmplx/FA/Prenat 1 tab DAILY PO 12/10/24 10:00 12/10/24 10:14 1 TAB Atorvastatin Calcium 20 mg HS PO 12/10/24 22:00 Aspirin 81 mg DAILY PO 12/10/24 10:00 12/10/24 10:15 81 MG Metoprolol Tartrate 50 mg BID PO 12/10/24 10:00 12/10/24 10:15 50 MG Hydralazine HCl 10 mg Q6HP PRN IV 12/10/24 05:15 12/10/24 08:52 10 MG Albuterol 2.5 mg Q4HPRN PRN NEB 12/10/24 05:15 Diagnostic Test (Pha) 1 strip IQ4HR 12/10/24 08:00 12/10/24 17:53 1 STRIP Insulin Human Regular IQ4HR SC 12/10/24 08:00 12/10/24 12:16 3 UNITS Dextrose 50 ml UD PRN IV 12/10/24 05:15 Sodium Chloride 10 ml Q8HR IV 12/10/24 06:00 12/10/24 13:14 10 ML Acetaminophen/ Hydrocodone Bitart 1 tab Q4HP PRN PO 12/10/24 05:15 Hold 12/10/24 08:52 1 TAB Ondansetron HCl 4 mg Q4HP PRN IV 12/10/24 05:15 Docusate Sodium 100 mg BIDPRN PRN PO 12/10/24 05:15 Acetaminophen 650 mg Q6HP PRN PO 12/10/24 05:15 Nitroglycerin 0.4 mg Q5MINP PRN SL 12/10/24 05:45 Morphine Sulfate 2 mg Q30M PRN IV 12/10/24 05:45 Morphine Sulfate 2 mg Q4HPRN PRN IV 12/10/24 13:45 12/10/24 14:24 2 MG Methocarbamol 750 mg QIDPRN PRN PO 12/10/24 18:45 UNV Laboratory Results Laboratory Tests 12/10/24 05:50 Chemistry Test 12/10/24 00:20 12/10/24 05:50 Albumin 4.4 g/dL (3.2-4.8) 4.6 g/dL (3.2-4.8) Calcium Level 8.7 mg/dL (8.7-10.4) 8.7 mg/dL (8.7-10.4) Total Protein 7.0 g/dL (5.7-8.2) 7.7 g/dL (5.7-8.2) Cardiac Markers Test 12/10/24 05:50 B-Type Natriuretic Peptide 1017.11 pg/mL (0-100) LFT Test 12/10/24 00:20 12/10/24 05:50 Alanine Aminotransferase (ALT) 16 U/L (7-40) 16 U/L (7-40) Alkaline Phosphatase 101 U/L (46-116) 105 U/L (46-116) Aspartate Amino Transferase (AST) 21 U/L (13-40) 20 U/L (13-40) Total Bilirubin 0.2 mg/dL (0.2-1.0) 0.2 mg/dL (0.2-1.0) Assessment/Plan Assessment/Plan 54-year-old male with a known history of end-stage renal disease on hemodialysis, diabetes mellitus type 2, hypertension, dyslipidemia, status post pacemaker placement, chronic congestive heart failure with systolic dysfunction, coronary artery disease who initially presented to us with low back pain after he started having back pain when he was dragging a weighted a box found to have 1. Acute low back pain rule out any acute pathology 2. End-stage renal disease on hemodialysis 3. Chronic congestive heart failure with systolic dysfunction likely, Procedure 4. Status post pacemaker placement 5. Diabetes mellitus type 2 6. Hypertension 7. Dyslipidemia 8. Anxiety disorder -add muscle relaxant, MRI lumbar spine, pain management., hemodialysis buttock nephrology Plan discussed with: Patient My Orders Orders - ADRIAN ORDONEZ MD Procedure Category Date Status Time Morphine Sulfate PHA 12/10/24 In Process Injection 13:45 Methocarbamol PHA 12/10/24 Logged (Robaxin) 18:45 Lumbar Spine Wo MRI 12/10/24 Logged Contrast 18:40 Date of Service: Dec 10, 2024 Billing Provider: ADRIAN ORDONEZ MD Common Visit Codes: [id number] INP/OBS CARE(MOD) ADRIAN ORDONEZ MD Dec 10, 2024 18:46
[2024-12-10 19:23] VITALS: PULSE 82; RESP 18; O2SAT 95
[2024-12-10] MEDS: ATORVASTATIN 20 MG TAB PO SCH (22:31)
[2024-12-10 22:50] VITALS: O2SAT 94
[2024-12-11 06:21] LABS: Hematocrit 38.8 % (41.0-53.0); Hemoglobin 13.1 g/dL (13.5-17.5); Mean Corpuscular Hemoglobin 30.9 pg (28.0-32.0); Mean Corpuscular Volume 91.5 fL (80.0-100.0); Nucleated Red Blood Cells % 0.1 %
[2024-12-11 06:39] LABS: Alanine Aminotransferase 13 U/L (7-40); Alkaline Phosphatase 111 U/L (46-116); Anion Gap 19 (5-15); BUN/Creatinine Ratio 8.8 (10.0-20.0); Carbon Dioxide 21 mmol/L (20-31); Glucose 85 mg/dL (74-106); Total Protein 7.2 g/dL (5.7-8.2)
[2024-12-11 06:40] LABS: Albumin 4.2 g/dL (3.2-4.8)
[2024-12-11 06:43] LABS: Bilirubin, Total < 0.2 mg/dL (0.2-1.0); Calcium 8.3 mg/dL (8.7-10.4); Chloride 90 mmol/L (98-107); Sodium 130 mmol/L (136-145)
[2024-12-11 06:44] LABS: Blood Urea Nitrogen 87 mg/dL (9-23)
[2024-12-11 06:45] LABS: Potassium 6.0 mmol/L (3.5-5.1)
[2024-12-11] MEDS: SODIUM CHL 0.9% 1000 ML BAG XX ONE (07:00)
--- NOTE | 2024-12-11 08:17 | DVHPN2 ---
Progress Note - Dictate Date Seen: Dec 11, 2024 Medical Necessity Reason Pt with a Central, PICC or Fol: No Subjective c/o severe back pain . Difficulty with mobility. vital signs Vital Sign Date Time Temp Pulse Resp B/P (MAP) Pulse Ox O2 Delivery O2 Flow Rate FiO2 12/11/24 07:05 77 12 156/89 12/11/24 06:27 98.0 93 98.0 12/10/24 22:50 Room Air* 0 21 medications Current Medications Medications Dose Ordered Sig/Caroline Route Start Time Stop Time Status Last Admin Dose Admin Sevelamer HCl 800 mg TIDWM PO 12/10/24 08:00 12/10/24 19:03 800 MG Multivit/Ca Carb/ B Cmplx/FA/Prenat 1 tab DAILY PO 12/10/24 10:00 12/10/24 10:14 1 TAB Atorvastatin Calcium 20 mg HS PO 12/10/24 22:00 12/10/24 22:31 20 MG Aspirin 81 mg DAILY PO 12/10/24 10:00 12/10/24 10:15 81 MG Metoprolol Tartrate 50 mg BID PO 12/10/24 10:00 12/10/24 22:32 50 MG Hydralazine HCl 10 mg Q6HP PRN IV 12/10/24 05:15 12/10/24 08:52 10 MG Albuterol 2.5 mg Q4HPRN PRN NEB 12/10/24 05:15 Diagnostic Test (Pha) 1 strip IQ4HR 12/10/24 08:00 12/11/24 04:34 1 STRIP Insulin Human Regular IQ4HR SC 12/10/24 08:00 12/10/24 12:16 3 UNITS Dextrose 50 ml UD PRN IV 12/10/24 05:15 Sodium Chloride 10 ml Q8HR IV 12/10/24 06:00 12/10/24 13:14 10 ML Acetaminophen/ Hydrocodone Bitart 1 tab Q4HP PRN PO 12/10/24 05:15 Hold 12/10/24 08:52 1 TAB Ondansetron HCl 4 mg Q4HP PRN IV 12/10/24 05:15 Docusate Sodium 100 mg BIDPRN PRN PO 12/10/24 05:15 Acetaminophen 650 mg Q6HP PRN PO 12/10/24 05:15 Nitroglycerin 0.4 mg Q5MINP PRN SL 12/10/24 05:45 Morphine Sulfate 2 mg Q30M PRN IV 12/10/24 05:45 Morphine Sulfate 2 mg Q4HPRN PRN IV 12/10/24 13:45 12/11/24 06:36 2 MG Methocarbamol 750 mg QIDPRN PRN PO 12/10/24 18:45 objective Awake alert oriented x3 HEENT: Normocephalic, no JVD Lungs: Bilateral good air entry CVS: S1, S2 regular rate rhythm Abdomen: Soft, bowel sounds present 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 goal Hb: 10 -11 g/dl Plan discussed with: Patient MAXI LEWIS MD Dec 11, 2024 08:17
[2024-12-11 08:24] VITALS: O2SAT 95
[2024-12-11] MEDS: SODIUM ZIRCONIUM CYCL 10 GM PAK PO ONE (09:10)
--- NOTE | 2024-12-11 09:16 | ECG ---
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
[2024-12-11] MEDS: METHOCARBAMOL 500 MG TAB PO PRN (09:32)
[2024-12-11 11:00] VITALS: PULSE 86; O2SAT 100
[2024-12-11] MEDS: MORPHINE SULFATE INJ 2 MG/ml SYRG IV PRN (18:07)
[2024-12-11 18:45] VITALS: PULSE 86; RESP 18; O2SAT 95
--- NOTE | 2024-12-11 18:59 | DVH ---
EXAM: MRI LUMBAR SPINE WO CONTRAST INDICATION: Acute lumbar back pain TECHNIQUE: Multiplanar, multisequence MR images of the lumbar spine were obtained without the adminis tration of IV contrast. COMPARISON: XY LUMBAR SPINE 3 VIEW on DOS: 12/10/24 FINDINGS: [ANATOMY]: Five lumbar-type vertebral bodies are present. The most inferior well-formed disc space wi ll be referred to as L5-S1 for purposes of numbering in this report. [VERTEBRAL BODIES]: Abnormal opposing osteitis/bone marrow edema with severe intervertebral disc heig ht loss and competent paraspinous edema. Accompanying low T1 signal below the level of the intervert ebral discs at L3-4. Overall imaging findings may be compatible with discitis osteomyelitis. Consider bone biopsy. [SPINAL CANAL]: The conus medullaris is normal in signal and morphology, terminating at the L1-L2 lev el. Subsequent severe spinal canal narrowing with posterior disc osteophyte complex at L3-4 and mild posterior epidural lipomatosis. Spinal canal narrowing down to 4-5 mm. Subsequent buckling of distal cauda equina nerve roots [FACETS]: Mild bilateral multilevel facet arthropathy. [OTHER]: Extensive cystic replacement of the bilateral kidneys. Right psoas muscle edema without defi nitive measurable drainable fluid collection and imaging finding may be related to reactive myositis from discitis osteomyelitis LEVEL BY LEVEL DISCUSSION: [T12-L1]: Unremarkable. [L1-L2]: Unremarkable. [L2-L3]: Unremarkable. [L3-L4]: As detailed above, severe intervertebral disc height loss, 3-4 mm posterior disc osteophyte complex, severe spinal canal narrowing and background of presumed discitis osteomyelitis. subsequent moderate to severe right foraminal narrowing [L4-L5]: Unremarkable. [L5-S1]: Unremarkable. IMPRESSION: 1. 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 2. No definitive drainable fluid collection. 3. Severe intervertebral disc height loss, which is disproportionate at L3-4 and subsequent severe sp inal canal narrowing in conjunction with mild posterior epidural lipomatosis at this level. 4. Cystic kidney replacement
[2024-12-11 20:00] VITALS: BP 153/88; PULSE 104; PULSE 87; PULSE 98; RESP 18; TEMP 98.5; O2SAT 96; O2SAT 99
[2024-12-11 21:00] VITALS: BP 154/91; PULSE 98; RESP 18; TEMP 97.7; O2SAT 99
[2024-12-11] MEDS: HYDROcodone-ACET 5/325MG TAB PO PRN (21:20)
[2024-12-11 21:47] VITALS: O2SAT 98
--- NOTE | 2024-12-11 22:14 | DVHPN2 ---
Subjective Comfortable in bed. Undergoing hemodialysis this afternoon when I evaluated him. Complains of back pain. Changes from previous H/P or p: No Changes Eyes: No Pain, No Vision change, No Conjunctivae inflammation, No Eyelid inflammation, No Other, No Redness ENT: No Ear pain, No Ear discharge, No Nose pain, No Nose discharge, No Nose congestion, No Mouth pain, No Mouth swelling, No Throat pain, No Throat swelling, No Other Cardiovascular: No Chest Pain, No Palpitations, No Orthopnea, No Paroxysmal Noc. Dyspnea, No Edema, No Lt Headedness, No Other Respiratory: No Cough, No Dry, No Shortness of breath, No SOB with excertion, No Wheezing, No Hemoptysis, No Pleuritic Pain, No Sputum, No Other Gastrointestinal: No Nausea, No Vomiting, No Abdominal Pain, No Diarrhea, No Constipation, No Melena, No Hematochezia, No Other Genitourinary: No Dysuria, No Frequency, No Incontinence, No Hematuria, No Retention; Other (On hemodialysis, av fistula left upper extremity.) Musculoskeletal: other (Left upper extremity AV fistula); No neck pain, No shoulder pain, No arm pain; back pain (Lower); No hand pain, No leg pain, No foot pain Skin: No Rash, No Lesions, No Jaundice, No Bruising, No Other Objective Vitals Vital Signs Date Time Temp Pulse Resp B/P (MAP) Pulse Ox O2 Delivery O2 Flow Rate FiO2 12/11/24 21:47 98 Nasal Cannula* 2 28 12/11/24 21:13 154/91 12/11/24 21:13 98 12/11/24 21:00 97.7 18 97.7 Exam Lying in bed comfortable without distress. HEENT neck supple no JVD. Heart regular rate and rhythm S1 and S2. Lungs without rales wheezes. Abdomen obese soft positive bowel sounds. Extremities: Stenosis. Able to move four extremities without any focal deficits. Medications Current Medications Medications Dose Ordered Sig/Caroline Route Start Time Stop Time Status Last Admin Dose Admin Sevelamer HCl 800 mg TIDWM PO 12/10/24 08:00 12/11/24 13:04 800 MG Multivit/Ca Carb/ B Cmplx/FA/Prenat 1 tab DAILY PO 12/10/24 10:00 12/11/24 10:35 1 TAB Atorvastatin Calcium 20 mg HS PO 12/10/24 22:00 12/11/24 21:12 20 MG Aspirin 81 mg DAILY PO 12/10/24 10:00 12/11/24 10:35 81 MG Metoprolol Tartrate 50 mg BID PO 12/10/24 10:00 12/11/24 21:13 50 MG Hydralazine HCl 10 mg Q6HP PRN IV 12/10/24 05:15 12/11/24 21:13 10 MG Albuterol 2.5 mg Q4HPRN PRN NEB 12/10/24 05:15 Diagnostic Test (Pha) 1 strip IQ4HR 12/10/24 08:00 12/11/24 20:06 1 STRIP Insulin Human Regular IQ4HR SC 12/10/24 08:00 12/11/24 20:17 2 UNITS Dextrose 50 ml UD PRN IV 12/10/24 05:15 Sodium Chloride 10 ml Q8HR IV 12/10/24 06:00 12/11/24 14:00 10 ML Ondansetron HCl 4 mg Q4HP PRN IV 12/10/24 05:15 Docusate Sodium 100 mg BIDPRN PRN PO 12/10/24 05:15 Acetaminophen 650 mg Q6HP PRN PO 12/10/24 05:15 Nitroglycerin 0.4 mg Q5MINP PRN SL 12/10/24 05:45 Morphine Sulfate 2 mg Q30M PRN IV 12/10/24 05:45 Methocarbamol 750 mg QIDPRN PRN PO 12/10/24 18:45 12/11/24 21:14 750 MG Morphine Sulfate 2 mg Q4HPRN PRN IV 12/11/24 16:30 12/11/24 18:07 2 MG Acetaminophen/ Hydrocodone Bitart 1 tab Q4HPRN PRN PO 12/11/24 16:30 12/11/24 21:20 1 TAB Nifedipine 30 mg DAILY PO 12/12/24 10:00 Laboratory Results Laboratory Tests 12/11/24 05:39 Chemistry Test 12/11/24 05:39 Albumin 4.2 g/dL (3.2-4.8) Calcium Level 8.3 mg/dL (8.7-10.4) L Total Protein 7.2 g/dL (5.7-8.2) LFT Test 12/11/24 05:39 Alanine Aminotransferase (ALT) 13 U/L (7-40) Alkaline Phosphatase 111 U/L (46-116) Aspartate Amino Transferase (AST) 13 U/L (13-40) Total Bilirubin < 0.2 mg/dL (0.2-1.0) L Assessment/Plan Assessment/Plan 1. Acute low back pain rule out any acute pathology 2. End-stage renal disease on hemodialysis 3. Chronic congestive heart failure with systolic dysfunction likely, Procedure 4. Status post pacemaker placement 5. Diabetes mellitus type 2 6. Hypertension 7. Dyslipidemia 8. Anxiety disorder Low back pain appears to be musculoskeletal in nature given his history of moving heavy objects rate and subsequent pain. Possible muscle spasms. Continue present management. I will send blood cultures x2 ruled out any infectious etiology. Continue hemodialysis and other care as he is on. Plan discussed with: Patient, Other My Orders Orders - MG ANDINO MD Procedure Category Date Status Time Morphine Sulfate PHA 12/11/24 In Process Injection 16:30 Pt Request For Service PT 12/11/24 Logged 16:24 Hydrocodone-Acet PHA 12/11/24 In Process 5/325mg Tab ([place] 16:30 Nifedipine Er PHA 12/12/24 In Process (Procardia Xl 10:00 Date of Service: Dec 11, 2024 Billing Provider: MG ANDINO MD Common Visit Codes: [id number] INP/OBS CARE(MOD) MG ANDINO MD Dec 11, 2024 22:14
[2024-12-12] VITALS (11 sets, daily range): BP systolic 116–144; BP diastolic 68–88; PULSE 72–87; RESP 16–20; TEMP 97.8–98.8; O2SAT 93–96
--- NOTE | 2024-12-12 09:30 | DVHPN2 ---
Progress Note - Dictate Date Seen: Dec 12, 2024 Medical Necessity Reason Pt with a Central, PICC or Fol: No Subjective c/o severe back pain . Difficulty with mobility. Underwent dialysis yesterday. vital signs Vital Sign Date Time Temp Pulse Resp B/P (MAP) Pulse Ox O2 Delivery O2 Flow Rate FiO2 12/12/24 08:30 95 Nasal Cannula* 2 28 12/12/24 08:00 75 12/12/24 05:30 97.8 16 116/79 (91) 97.8 Total Intake and Output 12/11/24 12/11/24 12/12/24 15:00 23:00 07:00 Intake Total 600 ml Balance 600 ml medications Current Medications Medications Dose Ordered Sig/Caroline Route Start Time Stop Time Status Last Admin Dose Admin Sevelamer HCl 800 mg TIDWM PO 12/10/24 08:00 12/11/24 13:04 800 MG Multivit/Ca Carb/ B Cmplx/FA/Prenat 1 tab DAILY PO 12/10/24 10:00 12/11/24 10:35 1 TAB Atorvastatin Calcium 20 mg HS PO 12/10/24 22:00 12/11/24 21:12 20 MG Aspirin 81 mg DAILY PO 12/10/24 10:00 12/11/24 10:35 81 MG Metoprolol Tartrate 50 mg BID PO 12/10/24 10:00 12/11/24 21:13 50 MG Hydralazine HCl 10 mg Q6HP PRN IV 12/10/24 05:15 12/11/24 21:13 10 MG Albuterol 2.5 mg Q4HPRN PRN NEB 12/10/24 05:15 Diagnostic Test (Pha) 1 strip IQ4HR 12/10/24 08:00 12/12/24 08:06 1 STRIP Insulin Human Regular IQ4HR SC 12/10/24 08:00 12/11/24 20:17 2 UNITS Dextrose 50 ml UD PRN IV 12/10/24 05:15 Sodium Chloride 10 ml Q8HR IV 12/10/24 06:00 12/12/24 06:10 10 ML Ondansetron HCl 4 mg Q4HP PRN IV 12/10/24 05:15 Docusate Sodium 100 mg BIDPRN PRN PO 12/10/24 05:15 Acetaminophen 650 mg Q6HP PRN PO 12/10/24 05:15 Nitroglycerin 0.4 mg Q5MINP PRN SL 12/10/24 05:45 Morphine Sulfate 2 mg Q30M PRN IV 12/10/24 05:45 Methocarbamol 750 mg QIDPRN PRN PO 12/10/24 18:45 12/12/24 03:05 750 MG Morphine Sulfate 2 mg Q4HPRN PRN IV 12/11/24 16:30 12/12/24 04:26 2 MG Acetaminophen/ Hydrocodone Bitart 1 tab Q4HPRN PRN PO 12/11/24 16:30 12/12/24 08:05 1 TAB Nifedipine 30 mg DAILY PO 12/12/24 10:00 objective Awake alert oriented x3 HEENT: Normocephalic, no JVD Lungs: Bilateral good air entry CVS: S1, S2 regular rate rhythm Abdomen: Soft, bowel sounds present 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 Hyperkalemia Chronic systolic CHF s/p pacemaker DM type II HTN HLD Anemia of CKD Secondary hyperparathyroidism Hyperphosphatemia Assessment/Plan continue hemodialysis on MWF schedule pain control Increase Renvela to 2400 mg t.i.d. with meals Consider ID consult an ortho consult for lower back pain and MRI findings of osteomyelitis. Plan discussed with: Patient MAXI LEWIS MD Dec 12, 2024 09:30
[2024-12-12] MEDS ORDERED: VANCOMYCIN PER PHARMACY 0 MG IV SCH (12:00)
[2024-12-12] MEDS: SEVELAMER 800 MG TAB PO SCH (12:13)
[2024-12-12] MEDS: diphenhdrAMINE-ZINC ACETATE 1 APPLIC APPL TOP PRN (12:30)
[2024-12-12] MEDS: VANCOMYCIN 1.25GM/250ML 250 ML IV ONE (16:27)
--- NOTE | 2024-12-12 20:51 | DVHPN2 ---
Subjective Comfortable in bed without any signs of pain. However when asked complains of back pain. MRI of the lumbar spine shows possible diskitis/osteomyelitis in the L3-L4 region. Changes from previous H/P or p: No Changes Eyes: No Pain, No Vision change, No Conjunctivae inflammation, No Eyelid inflammation, No Other, No Redness ENT: No Ear pain, No Ear discharge, No Nose pain, No Nose discharge, No Nose congestion, No Mouth pain, No Mouth swelling, No Throat pain, No Throat swelling, No Other Cardiovascular: No Chest Pain, No Palpitations, No Orthopnea, No Paroxysmal Noc. Dyspnea, No Edema, No Lt Headedness, No Other Respiratory: No Cough, No Dry, No Shortness of breath, No SOB with excertion, No Wheezing, No Hemoptysis, No Pleuritic Pain, No Sputum, No Other Gastrointestinal: No Nausea, No Vomiting, No Abdominal Pain, No Diarrhea, No Constipation, No Melena, No Hematochezia, No Other Genitourinary: No Dysuria, No Frequency, No Incontinence, No Hematuria, No Retention; Other (On hemodialysis, av fistula left upper extremity.) Musculoskeletal: other (Left upper extremity AV fistula); No neck pain, No shoulder pain, No arm pain; back pain (Lower); No hand pain, No leg pain, No foot pain Skin: No Rash, No Lesions, No Jaundice, No Bruising, No Other Objective Vitals Vital Signs Date Time Temp Pulse Resp B/P (MAP) Pulse Ox O2 Delivery O2 Flow Rate FiO2 12/12/24 19:29 93 Room Air 0.0 12/12/24 19:29 21 12/12/24 17:30 72 20 128/78 12/12/24 17:00 98.3 98.3 Intake/Output Intake and Output 12/12/24 07:00 Intake Total 600 ml Balance 600 ml Intake Oral 600 ml # Voids 2 Exam In bed comfortable without distress. HEENT neck supple no JVD. Heart regular rate and rhythm S1 and S2. Lungs without rales wheezes. Abdomen obese soft positive bowel sounds. Extremities: Stenosis. Able to move four extremities without any focal deficits. Medications Current Medications Medications Dose Ordered Sig/Caroline Route Start Time Stop Time Status Last Admin Dose Admin Multivit/Ca Carb/ B Cmplx/FA/Prenat 1 tab DAILY PO 12/10/24 10:00 12/12/24 09:53 1 TAB Atorvastatin Calcium 20 mg HS PO 12/10/24 22:00 12/11/24 21:12 20 MG Aspirin 81 mg DAILY PO 12/10/24 10:00 12/12/24 09:53 81 MG Metoprolol Tartrate 50 mg BID PO 12/10/24 10:00 12/12/24 09:52 50 MG Hydralazine HCl 10 mg Q6HP PRN IV 12/10/24 05:15 12/11/24 21:13 10 MG Albuterol 2.5 mg Q4HPRN PRN NEB 12/10/24 05:15 Diagnostic Test (Pha) 1 strip IQ4HR 12/10/24 08:00 12/12/24 20:08 1 STRIP Insulin Human Regular IQ4HR SC 12/10/24 08:00 12/12/24 16:17 2 UNITS Dextrose 50 ml UD PRN IV 12/10/24 05:15 Sodium Chloride 10 ml Q8HR IV 12/10/24 06:00 12/12/24 12:13 10 ML Ondansetron HCl 4 mg Q4HP PRN IV 12/10/24 05:15 Docusate Sodium 100 mg BIDPRN PRN PO 12/10/24 05:15 Acetaminophen 650 mg Q6HP PRN PO 12/10/24 05:15 Nitroglycerin 0.4 mg Q5MINP PRN SL 12/10/24 05:45 Morphine Sulfate 2 mg Q30M PRN IV 12/10/24 05:45 Methocarbamol 750 mg QIDPRN PRN PO 12/10/24 18:45 12/12/24 18:23 750 MG Morphine Sulfate 2 mg Q4HPRN PRN IV 12/11/24 16:30 12/12/24 16:19 2 MG Acetaminophen/ Hydrocodone Bitart 1 tab Q4HPRN PRN PO 12/11/24 16:30 12/12/24 18:23 1 TAB Nifedipine 30 mg DAILY PO 12/12/24 10:00 12/12/24 09:52 30 MG Sevelamer HCl 2,400 mg TIDWM PO 12/12/24 12:00 12/12/24 18:23 2,400 MG Zinc Acetate/ Diphenhydramine 1 applic Q6HP PRN TOP 12/12/24 11:00 12/12/24 12:30 1 APPLIC Vancomycin HCl 0 ml @ 0 mls/hr UD IV 12/12/24 12:00 Ceftriaxone Sodium 50 ml @ 100 mls/hr DAILY@09 IV 12/13/24 09:00 Laboratory Results Laboratory Tests 12/11/24 05:39 Assessment/Plan Assessment/Plan 1. Acute low back pain secondary to lumbar spine L3-4 diskitis/osteomyelitis 2. End-stage renal disease on hemodialysis 3. Chronic congestive heart failure with systolic dysfunction likely, Procedure 4. Status post pacemaker placement 5. Diabetes mellitus type 2 6. Hypertension 7. Dyslipidemia 8. Anxiety disorder We will continue current antibiotics. I will add vancomycin. Follow the blood culture results. Infectious Disease consultation. Physical therapy evaluation. Adequate pain control. Further clinical management per clinical course and recommendations from the consultants. Discussed with the patient's/nurse regarding care plan. Plan discussed with: Patient, Other My Orders Orders - MG ANDINO MD Procedure Category Date Status Time Blood Culture RODNEY 12/11/24 In Process 22:15 Mrsa Screen RODNEY 12/11/24 Logged 23:01 Vancomycin Per PHA 12/12/24 In Process Pharmacy 12:00 Ceftriaxone 1gm/50ml PHA 12/13/24 In Process D5w (Rocephin) 09:00 Vancomycin,Random LAB 12/13/24 Verified 05:00 Vancomycin Per JADE 12/12/24 In Process Pharmacy Protoc 12:34 * Infectious [place]- CONS 12/12/24 Transmitted Darwin Lama 14:25 Date of Service: Dec 12, 2024 Billing Provider: MG ANDINO MD Common Visit Codes: [id number] INP/OBS CARE(MOD) MG ANDINO MD Dec 12, 2024 20:51
[2024-12-12] MEDS: DOCUSATE SOD 100 MG CAP PO PRN (22:44)
[2024-12-13] VITALS (9 sets, daily range): BP systolic 140–154; BP diastolic 78–96; PULSE 70–89; RESP 14–20; TEMP 97.2–101.2; O2SAT 90–98
[2024-12-13 06:13] LABS: Anion Gap 17 (5-15); Carbon Dioxide 25 mmol/L (20-31); Potassium 5.0 mmol/L (3.5-5.1)
[2024-12-13 06:14] LABS: Calcium 9.2 mg/dL (8.7-10.4)
[2024-12-13 06:16] LABS: Chloride 89 mmol/L (98-107); Sodium 131 mmol/L (136-145)
[2024-12-13 06:19] LABS: BUN/Creatinine Ratio 8.1 (10.0-20.0); Glucose 75 mg/dL (74-106)
[2024-12-13 06:23] LABS: Blood Urea Nitrogen 69 mg/dL (9-23)
[2024-12-13] MEDS: SODIUM CHL 0.9% 1000 ML BAG XX ONE (07:00)
[2024-12-13] MEDS: VANCOMYCIN 1GM/250ML KIT 250 ML IV ONE (15:55)
--- NOTE | 2024-12-13 16:06 | DVHPN2 ---
Subjective Patient has stated that muscle relaxant is not working. Changes from previous H/P or p: No Changes Eyes: No Pain, No Vision change, No Conjunctivae inflammation, No Eyelid inflammation, No Other, No Redness ENT: No Ear pain, No Ear discharge, No Nose pain, No Nose discharge, No Nose congestion, No Mouth pain, No Mouth swelling, No Throat pain, No Throat swelling, No Other Cardiovascular: No Chest Pain, No Palpitations, No Orthopnea, No Paroxysmal Noc. Dyspnea, No Edema, No Lt Headedness, No Other Respiratory: No Cough, No Dry, No Shortness of breath, No SOB with excertion, No Wheezing, No Hemoptysis, No Pleuritic Pain, No Sputum, No Other Gastrointestinal: No Nausea, No Vomiting, No Abdominal Pain, No Diarrhea, No Constipation, No Melena, No Hematochezia, No Other Genitourinary: No Dysuria, No Frequency, No Incontinence, No Hematuria, No Retention; Other (On hemodialysis, av fistula left upper extremity.) Musculoskeletal: other (Left upper extremity AV fistula); No neck pain, No shoulder pain, No arm pain; back pain (Lower); No hand pain, No leg pain, No foot pain Skin: No Rash, No Lesions, No Jaundice, No Bruising, No Other Objective Vitals Vital Signs Date Time Temp Pulse Resp B/P (MAP) Pulse Ox O2 Delivery O2 Flow Rate FiO2 12/13/24 13:00 99.2 87 16 150/91 (110) 90 99.2 12/13/24 08:47 0.0 12/13/24 08:28 Room Air 12/13/24 08:28 21 Intake/Output Intake and Output 12/13/24 07:00 Intake Total 1430 ml Balance 1430 ml Intake Oral 1330 ml IV Total 100 ml Exam HEENT pupils are reactive Neck is supple CV is S1-S2 regular rate and rhythm Respiratory diminished breath sound bases GI positive bowel sounds Extremity no edema [employer] no motor deficit Medications Current Medications Medications Dose Ordered Sig/Caroline Route Start Time Stop Time Status Last Admin Dose Admin Multivit/Ca Carb/ B Cmplx/FA/Prenat 1 tab DAILY PO 12/10/24 10:00 12/13/24 09:48 1 TAB Atorvastatin Calcium 20 mg HS PO 12/10/24 22:00 12/12/24 21:10 20 MG Aspirin 81 mg DAILY PO 12/10/24 10:00 12/13/24 09:48 81 MG Metoprolol Tartrate 50 mg BID PO 12/10/24 10:00 12/13/24 09:48 50 MG Hydralazine HCl 10 mg Q6HP PRN IV 12/10/24 05:15 12/11/24 21:13 10 MG Albuterol 2.5 mg Q4HPRN PRN NEB 12/10/24 05:15 Diagnostic Test (Pha) 1 strip IQ4HR 12/10/24 08:00 12/13/24 15:45 1 STRIP Insulin Human Regular IQ4HR SC 12/10/24 08:00 12/13/24 12:04 2 UNITS Dextrose 50 ml UD PRN IV 12/10/24 05:15 Sodium Chloride 10 ml Q8HR IV 12/10/24 06:00 12/13/24 12:53 10 ML Ondansetron HCl 4 mg Q4HP PRN IV 12/10/24 05:15 Docusate Sodium 100 mg BIDPRN PRN PO 12/10/24 05:15 12/12/24 22:44 100 MG Acetaminophen 650 mg Q6HP PRN PO 12/10/24 05:15 Nitroglycerin 0.4 mg Q5MINP PRN SL 12/10/24 05:45 Morphine Sulfate 2 mg Q30M PRN IV 12/10/24 05:45 Methocarbamol 750 mg QIDPRN PRN PO 12/10/24 18:45 12/13/24 10:25 750 MG Morphine Sulfate 2 mg Q4HPRN PRN IV 12/11/24 16:30 12/13/24 12:10 2 MG Acetaminophen/ Hydrocodone Bitart 1 tab Q4HPRN PRN PO 12/11/24 16:30 12/13/24 13:42 1 TAB Nifedipine 30 mg DAILY PO 12/12/24 10:00 12/13/24 10:58 30 MG Sevelamer HCl 2,400 mg TIDWM PO 12/12/24 12:00 12/13/24 12:10 2,400 MG Zinc Acetate/ Diphenhydramine 1 applic Q6HP PRN TOP 12/12/24 11:00 12/12/24 12:30 1 APPLIC Vancomycin HCl 0 ml @ 0 mls/hr UD IV 12/12/24 12:00 Ceftriaxone Sodium 50 ml @ 100 mls/hr DAILY@09 IV 12/13/24 09:00 12/13/24 08:35 100 MLS/HR Laboratory Results Laboratory Tests 12/11/24 05:39 12/13/24 05:18 Chemistry Test 12/13/24 05:18 Calcium Level 9.2 mg/dL (8.7-10.4) Microbiology Microbiology Date/Time Source Procedure Growth Status 12/12/24 05:57 Blood Blood Culture - Preliminary NO GROWTH AFTER 24 HOURS OF INCUBATION. Resulted Assessment/Plan Assessment/Plan 54-year-old male with a known history of end-stage renal disease on hemodialysis, diabetes mellitus type 2, hypertension, dyslipidemia, status post pacemaker placement, chronic congestive heart failure with systolic dysfunction, coronary artery disease who initially presented to us with low back pain after he started having back pain when he was dragging a weighted a box found to have 1. Acute low back pain with a L3-4 spinal canal stenosis 2. End-stage renal disease on hemodialysis 3. Acute diskitis osteomyelitis at L3-4 4. Status post pacemaker placement 5. Diabetes mellitus type 2 6. Hypertension 7. Dyslipidemia 8. Anxiety disorder -continue pain meds, spine surgery consultation, ID consultation, IV antibiotics -physical therapy evaluation and treatment. Plan discussed with: Patient My Orders Orders - ADRIAN ORDONEZ MD Procedure Category Date Status Time Blood Culture RODNEY 12/13/24 In Process 13:42 Date of Service: Dec 13, 2024 Billing Provider: ADRIAN ORDONEZ MD Common Visit Codes: [id number] INP/OBS CARE(MOD) ADRIAN ORDONEZ MD Dec 13, 2024 16:06
--- NOTE | 2024-12-13 20:25 | DVHPN2 ---
Progress Note - Dictate Date Seen: Dec 13, 2024 Medical Necessity Reason Pt with a Central, PICC or Fol: No Subjective Underwent dialysis today . Blood cx so far negative vital signs Vital Sign Date Time Temp Pulse Resp B/P (MAP) Pulse Ox O2 Delivery O2 Flow Rate FiO2 12/13/24 17:50 164/97 12/13/24 17:17 84 18 12/13/24 17:00 100.3 94 100.3 12/13/24 08:47 0.0 12/13/24 08:28 Room Air 12/13/24 08:28 21 Total Intake and Output 12/12/24 12/12/24 12/13/24 15:00 23:00 07:00 Intake Total 50 ml 1030 ml 350 ml Balance 50 ml 1030 ml 350 ml medications Current Medications Medications Dose Ordered Sig/Caroline Route Start Time Stop Time Status Last Admin Dose Admin Multivit/Ca Carb/ B Cmplx/FA/Prenat 1 tab DAILY PO 12/10/24 10:00 12/13/24 09:48 1 TAB Atorvastatin Calcium 20 mg HS PO 12/10/24 22:00 12/12/24 21:10 20 MG Aspirin 81 mg DAILY PO 12/10/24 10:00 12/13/24 09:48 81 MG Metoprolol Tartrate 50 mg BID PO 12/10/24 10:00 12/13/24 09:48 50 MG Hydralazine HCl 10 mg Q6HP PRN IV 12/10/24 05:15 12/13/24 17:50 10 MG Diagnostic Test (Pha) 1 strip IQ4HR 12/10/24 08:00 12/13/24 15:45 1 STRIP Insulin Human Regular IQ4HR SC 12/10/24 08:00 12/13/24 12:04 2 UNITS Dextrose 50 ml UD PRN IV 12/10/24 05:15 Sodium Chloride 10 ml Q8HR IV 12/10/24 06:00 12/13/24 12:53 10 ML Ondansetron HCl 4 mg Q4HP PRN IV 12/10/24 05:15 Docusate Sodium 100 mg BIDPRN PRN PO 12/10/24 05:15 12/12/24 22:44 100 MG Acetaminophen 650 mg Q6HP PRN PO 12/10/24 05:15 Nitroglycerin 0.4 mg Q5MINP PRN SL 12/10/24 05:45 Morphine Sulfate 2 mg Q30M PRN IV 12/10/24 05:45 Methocarbamol 750 mg QIDPRN PRN PO 12/10/24 18:45 12/13/24 18:24 750 MG Morphine Sulfate 2 mg Q4HPRN PRN IV 12/11/24 16:30 12/13/24 16:47 2 MG Acetaminophen/ Hydrocodone Bitart 1 tab Q4HPRN PRN PO 12/11/24 16:30 12/13/24 19:50 1 TAB Nifedipine 30 mg DAILY PO 12/12/24 10:00 12/13/24 10:58 30 MG Sevelamer HCl 2,400 mg TIDWM PO 12/12/24 12:00 12/13/24 18:24 2,400 MG Zinc Acetate/ Diphenhydramine 1 applic Q6HP PRN TOP 12/12/24 11:00 12/12/24 12:30 1 APPLIC Vancomycin HCl 0 ml @ 0 mls/hr UD IV 12/12/24 12:00 Ceftriaxone Sodium 50 ml @ 100 mls/hr DAILY@09 IV 12/13/24 09:00 12/13/24 08:35 100 MLS/HR objective Awake alert oriented x3 HEENT: Normocephalic, no JVD Lungs: Bilateral good air entry CVS: S1, S2 regular rate rhythm Abdomen: Soft, bowel sounds present [employer]: No focal deficits Extremities: No edema laboratory and microbiology Laboratory Tests 12/13/24 05:18 12/11/24 05:39 Test 12/13/24 05:18 Range/Units Serum Glucose 75 74-106 mg/dL Problem List ESRD on HD Acute lower back pain with the lumbar spine MRI showing evidence of 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 Hyperkalemia Chronic systolic CHF s/p pacemaker DM type II HTN HLD Anemia of CKD Secondary hyperparathyroidism Hyperphosphatemia Assessment/Plan hemodialysis on MWF schedule pain control continue IV abx PT Dietary Evaluation Review Comments: Encourage and monitor PO feeding, Accommondate his likes/dislikes Expected Outcomes/Goals: maintain wt, Plan discussed with: Patient MAXI LEWIS MD Dec 13, 2024 20:25
[2024-12-13] MEDS: ACETAMINOPHEN 325 MG TAB PO PRN (21:29)
[2024-12-14] VITALS (8 sets, daily range): BP systolic 135–186; BP diastolic 82–108; PULSE 72–88; RESP 16–18; TEMP 98.4–99.2; O2SAT 91–98
--- NOTE | 2024-12-14 05:58 | DVHINCON2 ---
Consultation - Spinal Surgery Date Seen: Dec 14, 2024 Referring Physician Referring Physician Attending Doctor: Adrian Odronez MD Reason for Consultation low back pain , weakness History of Present Illness History of Present Illness Reason for Visit: Intractable low back pain History of Present Illness The patient is a 54-year-old male with multiple past medical history including CHF, ESRD on hemodialysis M-W-, CHF, asthma, and hypertension who presented to [facility] ED with complaint of severe back pain. Patient reports that he was dragging a box yesterday, afterwards he started having lower back pain, rating 9/10 numeric scale, getting worse today that prompted this visit. Patient was seen and evaluated in the ED, laboratory data shows WBC 5.5, platelets 160, sodium 133, potassium 5.2, BUN 48, creatinine 7.75, glucose 210, calcium 8.7, blood pressure 141/86, heart rate 88, temperature 95.0 F, O2 satu ration 98% on room air. Lumbar spine x-ray revealing mild spondylosis without acute finding. Please see medication orders section in the computer. On ED admitting team assessment, patient denied chest pain, no headache, no dizziness, no diaphoresis, no shortness of breath, no nausea, no vomiting, no fever, no chills. Patient was admitted for further evaluation and medical management. Past Medical/Surgical History Past Medical/Surgical History Past Medical History Anxiety, Asthma, CAD, CHF, Depression, DM, ESRD, High Lipids, HTN, [place] Past Surgical History Pacemaker, PTCA Family and Social History Family and Social History Family History Reviewed, noncontributory to the management of this case. Past Social History The patient lives at home, smokes cigarettes, drinks alcohol occasionally, uses cocaine. Allergies and medications Allergies: Coded Allergies: Pneumococcal Vaccines (Verified Allergy, Unknown, 07/17/24) Home Meds Active Scripts Trazodone Hcl (Trazodone Hcl) 150 Mg Tab, 1 TAB PO QPM for 30 Days, #30 TAB 1 Refill Prov:SAGEBLAIR ROWAN RESIDENT 12/05/24 Ticagrelor Base (Brilinta) 60 Mg Tab, 60 MG PO BID for 30 Days, #60 TAB Prov:BLAIR SAGE RESIDENT 12/05/24 Sevelamer Carbonate (Renvela) 800 Mg Tab, 3 TAB PO TID for 30 Days, #270 TAB 3 Refills Prov:BLAIR SAGE [facility] 12/05/24 Nifedipine (Nifedipine Er) 90 Mg Tab, 1 TAB PO DAILY for 30 Days, #30 TAB 5 Refills Prov:BLAIR SAGE [facility] 12/05/24 Metoprolol Succinate (Metoprolol Succinate Er) 50 Mg Tab, 1 TAB PO DAILY for 30 Days, #30 TAB 5 Refills Prov:BLAIR SAGE [facility] 12/05/24 Insulin Lispro (Insulin Lispro) 100 Unit/Ml Inj, 100 UNIT IJ TID for 30 Days, #3 INJ 2-3 units subcutaneous t.i.d.. Always check your blood glucose before administering insulin, If blood sugar < 60 - have 15-20 g of glucose (8 oz cranberry juice, orange juice, apple juice, small carton of milk) go to the ER/call 911 Prov:BLAIR SAGE [facility] 12/05/24 Insulin Glargine (Lantus Solostar) 100 Unit/Ml Inj, 100 UNIT SC QPM for 30 Days, #3 INJ 15 units in the evening. Always check your blood glucose before administering insulin, If blood sugar < 60 - have 15-20 g of glucose (8 oz cranberry juice, orange juice, apple juice, small carton of milk) go to the ER/call 911 Prov:BLAIR SAGE [facility] 12/05/24 Hydralazine HCl (Hydralazine Hydrochloride) 50 Mg Tab, 50 MG PO TID for 30 Days, #90 TAB Prov:BLAIR SAGE [facility] 12/05/24 Folic Acid-Vitamin B6-Vitamin (B Complex/Folic Acid) Tab, 1 CAP OR DAILY for 30 Days, #30 TAB Prov:BLAIR SAGE [facility] 12/05/24 Atorvastatin Calcium (ATORVASTATIN CALCIUM) 40 Mg Tab, 1 TAB PO DAILY for 30 Days, #30 TAB 5 Refills Prov:BLAIR SAGE [facility] 12/05/24 Albuterol Sulfate (Albuterol Sulfate) 0.083 % Neb, 1 VIAL NEB Q4HPRN PRN for 30 Days, #50 VIAL Prov:BLAIR SAGE [facility] 12/05/24 Trazodone HCl (Trazodone Hydrochloride) 50 Mg Tab, 50 MG PO HS for 20 Days, #20 TAB 1 Refill Prov:CELSO HARRIS 08/16/24 Diphenhydramine HCl (Allergy Relief) 25 Mg/10 Ml Liq, 25 MG PO BID for 15 Days, #30 LIQ 1 Refill Prov:CELOS HARRIS RESDIENT 08/01/24 Diphenhydramine-Zinc Acetate (Benadryl Cream) 1 Applic Ap, 1 APPLIC TOP Q6HPRN PRN for 30 Days, #120 APPLIC Prov:ALANA CANNON RESIDENT 07/30/23 Acetaminophen (Acetaminophen) 325 Mg Tab, 650 MG PO Q6HP PRN for 30 Days, #240 TAB Prov:ANDIAUDREYALANA [facility] 07/30/23 Ergocalciferol (VITAMIN D 68594 UNIT) 50,000 [place], [address] UNIT PO Q7D for 30 Days, #10 CAP Prov:ANDICARLAALANA HARRINGTON [facility] 07/30/23 Reported Medications Hydrocodone-Acetaminophen (Hydrocodone Bitartrate/AC 10-325 mg) 1 Tab Tab, 1 TAB PO QID, TAB 08/01/24 Lorazepam (ATIVAN TABLET) 0.5 Mg Tb, 1 TAB PO TID PRN for ANXIETY, #90 TAB 10/16/23 Patients Own Medication (PATIENTS OWN MEDICATION) ., 1 PATCH TD DAILY PTS OWN MED-OBTAIN FROM PT AND SEND TO RX DRUG: FREQ: RX# EXP: DATE DISP: TECH: RPH: 10/16/23 Sevelamer Carbonate (Sevelamer Carbonate) 800 Mg Tab, 5 TAB PO TIDWM, TAB 10/16/23 Trazodone Hcl (Trazodone Hcl) 150 Mg Tab, 150 MG PO for for sleep, MG 09/19/23 Review of systems Review of Systems: MSK:Abnormal (low back pain), NEURO:Abnormal (left low back pain today with rediation to left hip, pt verbalized she has had some slight improvment) Examination Vital signs Imaging: ORDERING PHYSICIAN: ADRIAN ORDONEZ MD PROCEDURE(s): MSL - LUMBAR SPINE WO CONTRAST REASON: Acute lumbar back pain ORDER NUMBER(s): [id number], ACCESSION NUMBER(s): [id number] EXAM: MRI LUMBAR SPINE WO CONTRAST INDICATION: Acute lumbar back pain TECHNIQUE: Multiplanar, multisequence MR images of the lumbar spine were obtained without the administration of IV contrast. COMPARISON: XY LUMBAR SPINE 3 VIEW on DOS: 12/10/24 FINDINGS: [ANATOMY]: Five lumbar-type vertebral bodies are present. The most inferior well-formed disc space will be referred to as L5-S1 for purposes of numbering in this report. [VERTEBRAL BODIES]: Abnormal opposing osteitis/bone marrow edema with severe intervertebral disc height loss and competent paraspinous edema. Accompanying low T1 signal below the level of the intervertebral discs at L3-4. Overall imaging findings may be compatible with discitis osteomyelitis. Consider bone biopsy. [SPINAL CANAL]: The conus medullaris is normal in signal and morphology, terminating at the L1-L2 level. Subsequent severe spinal canal narrowing with posterior disc osteophyte complex at L3-4 and mild posterior epidural lipomatosis. Spinal canal narrowing down to 4-5 mm. Subsequent buckling of distal cauda equina nerve roots [FACETS]: Mild bilateral multilevel facet arthropathy. [OTHER]: Extensive cystic replacement of the bilateral kidneys. Right psoas muscle edema without definitive measurable drainable fluid collection and imaging finding may be related to reactive myositis from discitis osteomyelitis LEVEL BY LEVEL DISCUSSION: [T12-L1]: Unremarkable. [L1-L2]: Unremarkable. [L2-L3]: Unremarkable. [L3-L4]: As detailed above, severe intervertebral disc height loss, 3-4 mm posterior disc osteophyte complex, severe spinal canal narrowing and background of presumed discitis osteomyelitis. subsequent moderate to severe right foraminal narrowing [L4-L5]: Unremarkable. [L5-S1]: Unremarkable. IMPRESSION: 1. 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 2. No definitive drainable fluid collection. 3. Severe intervertebral disc height loss, which is disproportionate at L3-4 and subsequent severe spinal canal narrowing in conjunction with mild posterior epidural lipomatosis at this level. 4. Cystic kidney replacement Vital Signs Date Time Temp Pulse Resp B/P (MAP) Pulse Ox O2 Delivery O2 Flow Rate FiO2 12/14/24 03:53 76 18 135/83 12/14/24 01:00 98.4 96 98.4 12/13/24 20:00 Room Air* 0 21 Medications Current Medications Medications (Trade) Dose Ordered Sig/Caroline Route PRN Reason Start Time Stop Time Status Last Admin Ceftriaxone Sodium 50 ml @ 100 mls/hr DAILY@09 IV 12/13/24 09:00 12/13/24 08:35 Laboratory Labs Test 12/14/24 03:50 12/13/24 05:18 12/11/24 05:39 12/10/24 05:50 Range/Units POC Glucose 168 H 70-106 mg/dl Sodium Level 131 L 136-145 mmol/L Potassium Level 5.0 3.5-5.1 mmol/L Chloride Level 89 L 98-107 mmol/L Carbon Dioxide Level 25 20-31 mmol/L Anion Gap 17 H 5-15 Blood Urea Nitrogen 69 #H 9-23 mg/dL Creatinine 8.55 H 0.700-1.30 mg/dL Glomerular Filtration Rate Calc 7 >90 mL/min BUN/Creatinine Ratio 8.1 L 10.0-20.0 Serum Glucose 75 74-106 mg/dL Calcium Level 9.2 8.7-10.4 mg/dL Random Vancomycin Level 7.7 5-10 ug/mL White Blood Count 6.5 4.4-10.8 10^3/uL Red Blood Count 4.24 L 4.5-5.90 10^6/uL Hemoglobin 13.1 L 13.5-17.5 g/dL Hematocrit 38.8 L 41.0-53.0 % Mean Corpuscular Volume 91.5 80.0-100.0 fL Mean Corpuscular Hemoglobin 30.9 28.0-32.0 pg Mean Corpuscular Hemoglobin Concent 33.8 32.0-36.0 g/dL Red Cell Distribution Width 18.2 H 11.8-14.3 % Platelet Count 174 140-450 10^3/uL Mean Platelet Volume 9.4 6.9-10.8 fL Neutrophils (%) (Auto) 79.4 37.0-80.0 % Lymphocytes (%) (Auto) 6.8 L 10.0-50.0 % Monocytes (%) (Auto) 12.2 H 0.0-12.0 % Eosinophils (%) (Auto) 1.1 0.0-7.0 % Basophils (%) (Auto) 0.5 0.0-2.0 % Neutrophils # (Auto) 5.2 1.6-8.6 10 ^3/uL Lymphocytes # (Auto) 0.4 0.4-5.4 10 ^3/uL Monocytes # (Auto) 0.8 0-1.3 10 ^3/uL Eosinophils # (Auto) 0.1 0-0.8 10 ^3/uL Basophils # (Auto) 0 0-0.2 10 ^3/uL Nucleated Red Blood Cells 0.1 % Total Bilirubin < 0.2 L 0.2-1.0 mg/dL Aspartate Amino Transferase (AST) 13 13-40 U/L Alanine Aminotransferase (ALT) 13 7-40 U/L Alkaline Phosphatase 111 46-116 U/L Total Protein 7.2 5.7-8.2 g/dL Albumin 4.2 3.2-4.8 g/dL B-Type Natriuretic Peptide 1017.11 0-100 pg/mL Microbiology Date/Time Source Procedure Growth Status 12/12/24 05:57 Blood Blood Culture - Preliminary NO GROWTH AFTER 24 HOURS OF INCUBATION. Resulted Examination: GENERAL:Normal, HEENT:Normal, NECK:Normal, LUNGS:Normal, CVS:Normal, ABDOMEN:Normal, MSK:Abnormal (low back pain left hip pain, lumbar radiculopathy to left leg), SKIN:Normal, NEURO:Abnormal (low back pain left hip pain, lumbar radiculopathy to left leg), :Normal Problem List/Assessment/Plan Problems: (1) Discitis of lumbar region (2) Lumbar stenosis Assessment and Plan Possible discitis osteomyelitis at L3-4 with prominent paraspinous right psoas edema, however no definitive drainable fluid collection. Severe intervertebral disc height loss, which is disproportionate at L3-4 and subsequent severe spinal canal narrowing in conjunction with mild posterior epidural lipomatosis at this level. Continue supportive measures per primary team's discretion Muscle relaxers to reduce muscle spasm pain Physical therapy assessment and evaluation for treatment suggestions and safe discharge Patient can be DC for outpatient follow up - PCP for referral to spine Call [phone] for a appointment, or to change or confirm your appointment [id number] [facility], [address] [address] Infectious disease consult Follow ID recommendations for treatment once specific organism is identified If discitis is ruled out the patient would need to be medically optimized before considering any surgical intervention. Conservative management of muscle relaxers and pain medication physical therapy, and pain management are recommended at this time due to the patient's extensive medical history and illnesses. There is a concern the patient would not be suitable for anesthesia. Cardiology/medical clearance would be needed. If the patient is able to walk safely with conservative treatment then It would best to have the patient followed up as an outpatient with the plan developed for any inpatient intervention if needed and if the patient is requesting it. If the patient is unable to walk and is determined to be cleared for surgery and the patient is agreeable to surgery then it will be considered. Complete CMP, sed rate, C-reactive protein levels pending Call with questions Dino Genao [facility] Orthopaedic Spine Surgery nurse practitioner For Dr Inez Fitzpatrick Patient was examined, chart reviewed, labs evaluated, and diagnostic studies and findings analyzed. Case was discussed with Dr. Vin Fitzpatrick who formulated the plan of care. This medical document was created using an electronic medical record system with [employer] dictation system. Although this document has been carefully reviewed, there might still be some phonetic and typographical errors. These areas are purely typographical due to imperfections of the software programs, and do not reflect any compromise in the patient's medical care. Plan discussed with Plan discussed with: Patient, Other TARIK GENAO NP Dec 14, 2024 05:58
[2024-12-14 06:25] LABS: Alanine Aminotransferase 14 U/L (7-40); Albumin 4.3 g/dL (3.2-4.8); Anion Gap 16 (5-15); BUN/Creatinine Ratio 7.1 (10.0-20.0); Calcium 9.8 mg/dL (8.7-10.4); Carbon Dioxide 27 mmol/L (20-31); Glucose 105 mg/dL (74-106); Total Protein 7.5 g/dL (5.7-8.2)
[2024-12-14 06:27] LABS: Alkaline Phosphatase 146 U/L (46-116); Bilirubin, Total 0.2 mg/dL (0.2-1.0); Blood Urea Nitrogen 60 mg/dL (9-23); Chloride 89 mmol/L (98-107); Potassium 5.4 mmol/L (3.5-5.1); Sodium 132 mmol/L (136-145)
--- NOTE | 2024-12-14 14:36 | DVHPN2 ---
Progress Note - Dictate Date Seen: Dec 14, 2024 Medical Necessity Reason Pt with a Central, PICC or Fol: No Subjective no acute issues overnight vital signs Vital Sign Date Time Temp Pulse Resp B/P (MAP) Pulse Ox O2 Delivery O2 Flow Rate FiO2 12/14/24 14:17 72 18 152/95 12/14/24 13:00 98.4 98 98.4 12/14/24 08:00 Room Air* 0 21 Total Intake and Output 12/13/24 12/13/24 12/14/24 15:00 23:00 07:00 Intake Total 50 ml 510 ml 360 ml Balance 50 ml 510 ml 360 ml medications Current Medications Medications Dose Ordered Sig/Caroline Route Start Time Stop Time Status Last Admin Dose Admin Multivit/Ca Carb/ B Cmplx/FA/Prenat 1 tab DAILY PO 12/10/24 10:00 12/14/24 09:41 1 TAB Atorvastatin Calcium 20 mg HS PO 12/10/24 22:00 12/13/24 21:29 20 MG Aspirin 81 mg DAILY PO 12/10/24 10:00 12/14/24 09:41 81 MG Metoprolol Tartrate 50 mg BID PO 12/10/24 10:00 12/14/24 09:41 50 MG Hydralazine HCl 10 mg Q6HP PRN IV 12/10/24 05:15 12/13/24 17:50 10 MG Diagnostic Test (Pha) 1 strip IQ4HR 12/10/24 08:00 12/14/24 12:14 1 STRIP Insulin Human Regular IQ4HR SC 12/10/24 08:00 12/14/24 12:14 3 UNITS Dextrose 50 ml UD PRN IV 12/10/24 05:15 Sodium Chloride 10 ml Q8HR IV 12/10/24 06:00 12/14/24 05:20 10 ML Ondansetron HCl 4 mg Q4HP PRN IV 12/10/24 05:15 Docusate Sodium 100 mg BIDPRN PRN PO 12/10/24 05:15 12/12/24 22:44 100 MG Acetaminophen 650 mg Q6HP PRN PO 12/10/24 05:15 12/13/24 21:29 650 MG Nitroglycerin 0.4 mg Q5MINP PRN SL 12/10/24 05:45 Morphine Sulfate 2 mg Q30M PRN IV 12/10/24 05:45 Methocarbamol 750 mg QIDPRN PRN PO 12/10/24 18:45 12/14/24 08:42 750 MG Morphine Sulfate 2 mg Q4HPRN PRN IV 12/11/24 16:30 12/14/24 14:17 2 MG Acetaminophen/ Hydrocodone Bitart 1 tab Q4HPRN PRN PO 12/11/24 16:30 12/14/24 12:15 1 TAB Nifedipine 30 mg DAILY PO 12/12/24 10:00 12/14/24 09:41 30 MG Sevelamer HCl 2,400 mg TIDWM PO 12/12/24 12:00 12/14/24 12:00 2,400 MG Zinc Acetate/ Diphenhydramine 1 applic Q6HP PRN TOP 12/12/24 11:00 12/12/24 12:30 1 APPLIC Vancomycin HCl 0 ml @ 0 mls/hr UD IV 12/12/24 12:00 Ceftriaxone Sodium 50 ml @ 100 mls/hr DAILY@09 IV 12/13/24 09:00 12/14/24 09:42 100 MLS/HR objective Awake alert oriented x3 HEENT: Normocephalic, no JVD Lungs: Bilateral good air entry CVS: S1, S2 regular rate rhythm Abdomen: Soft, bowel sounds present ACCOUNT DIRECTOR: No focal deficits Extremities: No edema laboratory and microbiology Laboratory Tests 12/14/24 05:19 12/11/24 05:39 Test 12/14/24 05:19 Range/Units Serum Glucose 105 74-106 mg/dL Problem List ESRD on HD Acute lower back pain with the lumbar spine MRI showing evidence of presumed discitis 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 Hyperkalemia Chronic systolic CHF s/p pacemaker DM type II HTN HLD Anemia of CKD Secondary hyperparathyroidism Hyperphosphatemia Assessment/Plan hemodialysis on MWF schedule pain control continue IV abx PT has been ambulating patient . Dietary Evaluation Review Comments: Encourage and monitor PO feeding, Accommondate his likes/dislikes Expected Outcomes/Goals: maintain wt, Plan discussed with: Patient MAXI LEWIS MD Dec 14, 2024 14:36
[2024-12-14] MEDS: SODIUM ZIRCONIUM CYCL 10 GM PAK PO ONE (15:00)
--- NOTE | 2024-12-14 16:08 | DVHPN2 ---
Subjective We will order PICC line and arrange IV antibiotics for six weeks for possible diskitis/osteomyelitis at L3-L4. Changes from previous H/P or p: No Changes Eyes: No Pain, No Vision change, No Conjunctivae inflammation, No Eyelid inflammation, No Other, No Redness ENT: No Ear pain, No Ear discharge, No Nose pain, No Nose discharge, No Nose congestion, No Mouth pain, No Mouth swelling, No Throat pain, No Throat swelling, No Other Cardiovascular: No Chest Pain, No Palpitations, No Orthopnea, No Paroxysmal Noc. Dyspnea, No Edema, No Lt Headedness, No Other Respiratory: No Cough, No Dry, No Shortness of breath, No SOB with excertion, No Wheezing, No Hemoptysis, No Pleuritic Pain, No Sputum, No Other Gastrointestinal: No Nausea, No Vomiting, No Abdominal Pain, No Diarrhea, No Constipation, No Melena, No Hematochezia, No Other Genitourinary: No Dysuria, No Frequency, No Incontinence, No Hematuria, No Retention; Other (On hemodialysis, av fistula left upper extremity.) Musculoskeletal: other (Left upper extremity AV fistula); No neck pain, No shoulder pain, No arm pain; back pain (Lower); No hand pain, No leg pain, No foot pain Skin: No Rash, No Lesions, No Jaundice, No Bruising, No Other Objective Vitals Vital Signs Date Time Temp Pulse Resp B/P (MAP) Pulse Ox O2 Delivery O2 Flow Rate FiO2 12/14/24 14:17 72 18 152/95 12/14/24 13:00 98.4 98 98.4 12/14/24 08:00 Room Air* 0 21 Intake/Output Intake and Output 12/14/24 07:00 Intake Total 920 ml Balance 920 ml Intake Oral 620 ml IV Total 300 ml Exam HEENT pupils are reactive Neck is supple CV is S1-S2 regular rate and rhythm Respiratory diminished breath sound bases GI positive bowel sounds Extremity no edema 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 Medications Current Medications Medications Dose Ordered Sig/Caroline Route Start Time Stop Time Status Last Admin Dose Admin Multivit/Ca Carb/ B Cmplx/FA/Prenat 1 tab DAILY PO 12/10/24 10:00 12/14/24 09:41 1 TAB Atorvastatin Calcium 20 mg HS PO 12/10/24 22:00 12/13/24 21:29 20 MG Aspirin 81 mg DAILY PO 12/10/24 10:00 12/14/24 09:41 81 MG Metoprolol Tartrate 50 mg BID PO 12/10/24 10:00 12/14/24 09:41 50 MG Hydralazine HCl 10 mg Q6HP PRN IV 12/10/24 05:15 12/13/24 17:50 10 MG Diagnostic Test (Pha) 1 strip IQ4HR 12/10/24 08:00 12/14/24 12:14 1 STRIP Insulin Human Regular IQ4HR SC 12/10/24 08:00 12/14/24 12:14 3 UNITS Dextrose 50 ml UD PRN IV 12/10/24 05:15 Sodium Chloride 10 ml Q8HR IV 12/10/24 06:00 12/14/24 14:00 10 ML Ondansetron HCl 4 mg Q4HP PRN IV 12/10/24 05:15 Docusate Sodium 100 mg BIDPRN PRN PO 12/10/24 05:15 12/12/24 22:44 100 MG Acetaminophen 650 mg Q6HP PRN PO 12/10/24 05:15 12/13/24 21:29 650 MG Nitroglycerin 0.4 mg Q5MINP PRN SL 12/10/24 05:45 Morphine Sulfate 2 mg Q30M PRN IV 12/10/24 05:45 Methocarbamol 750 mg QIDPRN PRN PO 12/10/24 18:45 12/14/24 08:42 750 MG Morphine Sulfate 2 mg Q4HPRN PRN IV 12/11/24 16:30 12/14/24 14:17 2 MG Acetaminophen/ Hydrocodone Bitart 1 tab Q4HPRN PRN PO 12/11/24 16:30 12/14/24 12:15 1 TAB Nifedipine 30 mg DAILY PO 12/12/24 10:00 12/14/24 09:41 30 MG Sevelamer HCl 2,400 mg TIDWM PO 12/12/24 12:00 12/14/24 12:00 2,400 MG Zinc Acetate/ Diphenhydramine 1 applic Q6HP PRN TOP 12/12/24 11:00 12/12/24 12:30 1 APPLIC Vancomycin HCl 0 ml @ 0 mls/hr UD IV 12/12/24 12:00 Ceftriaxone Sodium 50 ml @ 100 mls/hr DAILY@09 IV 12/13/24 09:00 12/14/24 09:42 100 MLS/HR Laboratory Results Laboratory Tests 12/11/24 05:39 12/14/24 05:19 Chemistry Test 12/14/24 05:19 Albumin 4.3 g/dL (3.2-4.8) Calcium Level 9.8 mg/dL (8.7-10.4) Total Protein 7.5 g/dL (5.7-8.2) LFT Test 12/14/24 05:19 Alanine Aminotransferase (ALT) 14 U/L (7-40) Alkaline Phosphatase 146 U/L (46-116) H Aspartate Amino Transferase (AST) 20 U/L (13-40) Total Bilirubin 0.2 mg/dL (0.2-1.0) Microbiology Microbiology Date/Time Source Procedure Growth Status 12/13/24 14:50 Blood Blood Culture - Preliminary NO GROWTH AFTER 24 HOURS OF INCUBATION. Resulted Assessment/Plan Assessment/Plan 54-year-old male with a known history of end-stage renal disease on hemodialysis, diabetes mellitus type 2, hypertension, dyslipidemia, status post pacemaker placement, chronic congestive heart failure with systolic dysfunction, coronary artery disease who initially presented to us with low back pain after he started having back pain when he was dragging a weighted a box found to have 1. Acute low back pain with a L3-4 spinal canal stenosis 2. End-stage renal disease on hemodialysis 3. Acute diskitis osteomyelitis at L3-4 4. Status post pacemaker placement 5. Diabetes mellitus type 2 6. Hypertension 7. Dyslipidemia 8. Anxiety disorder -continue pain meds, spine surgery consultation, ID consultation, IV antibiotics -physical therapy evaluation and treatment. Plan discussed with: Patient My Orders Orders - ADRIAN ORDONEZ MD Procedure Category Date Status Time * Picc Line Consult CONS 12/14/24 Transmitted 15:58 * Firmware Software Verification Engineer CONS 12/14/24 Transmitted Consult Date of Service: Dec 14, 2024 Billing Provider: ADRIAN ORDONEZ MD Common Visit Codes: [id number] INP/OBS CARE(MOD) ADRIAN ORDONEZ MD Dec 14, 2024 16:08
[2024-12-14] MEDS: LACTULOSE 20Gm/30ML SOLN PO ONE (20:16)
[2024-12-15] VITALS (8 sets, daily range): BP systolic 127–159; BP diastolic 49–86; PULSE 72–91; RESP 14–18; TEMP 98.2–99.6; O2SAT 91–96
[2024-12-15] MEDS: SODIUM CHL 0.9% 1000 ML BAG XX ONE (07:00)
--- NOTE | 2024-12-15 09:28 | DVHPN2 ---
Progress Note - Dictate Date Seen: Dec 15, 2024 Medical Necessity Reason Pt with a Central, PICC or Fol: No Subjective no acute issues overnight vital signs Vital Sign Date Time Temp Pulse Resp B/P (MAP) Pulse Ox O2 Delivery O2 Flow Rate FiO2 12/15/24 09:01 79 16 148/73 12/15/24 09:00 99.2 95 99.2 12/14/24 20:00 Room Air* 0 21 Total Intake and Output 12/14/24 12/14/24 12/15/24 15:00 23:00 07:00 Intake Total 50 ml 630 ml 220 ml Output Total 25 ml Balance 50 ml 605 ml 220 ml medications Current Medications Medications Dose Ordered Sig/Caroline Route Start Time Stop Time Status Last Admin Dose Admin Multivit/Ca Carb/ B Cmplx/FA/Prenat 1 tab DAILY PO 12/10/24 10:00 12/14/24 09:41 1 TAB Atorvastatin Calcium 20 mg HS PO 12/10/24 22:00 12/14/24 22:46 20 MG Aspirin 81 mg DAILY PO 12/10/24 10:00 12/14/24 09:41 81 MG Metoprolol Tartrate 50 mg BID PO 12/10/24 10:00 12/14/24 22:48 50 MG Hydralazine HCl 10 mg Q6HP PRN IV 12/10/24 05:15 12/14/24 16:31 10 MG Diagnostic Test (Pha) 1 strip IQ4HR 12/10/24 08:00 12/15/24 08:00 1 STRIP Insulin Human Regular IQ4HR SC 12/10/24 08:00 12/14/24 12:14 3 UNITS Dextrose 50 ml UD PRN IV 12/10/24 05:15 Sodium Chloride 10 ml Q8HR IV 12/10/24 06:00 12/14/24 22:48 10 ML Ondansetron HCl 4 mg Q4HP PRN IV 12/10/24 05:15 Docusate Sodium 100 mg BIDPRN PRN PO 12/10/24 05:15 12/14/24 23:39 100 MG Acetaminophen 650 mg Q6HP PRN PO 12/10/24 05:15 12/13/24 21:29 650 MG Nitroglycerin 0.4 mg Q5MINP PRN SL 12/10/24 05:45 Morphine Sulfate 2 mg Q30M PRN IV 12/10/24 05:45 Methocarbamol 750 mg QIDPRN PRN PO 12/10/24 18:45 12/14/24 16:24 750 MG Morphine Sulfate 2 mg Q4HPRN PRN IV 12/11/24 16:30 12/15/24 09:01 2 MG Acetaminophen/ Hydrocodone Bitart 1 tab Q4HPRN PRN PO 12/11/24 16:30 12/14/24 16:23 1 TAB Nifedipine 30 mg DAILY PO 12/12/24 10:00 12/14/24 09:41 30 MG Sevelamer HCl 2,400 mg TIDWM PO 12/12/24 12:00 12/15/24 08:47 2,400 MG Zinc Acetate/ Diphenhydramine 1 applic Q6HP PRN TOP 12/12/24 11:00 12/14/24 20:29 1 APPLIC Vancomycin HCl 0 ml @ 0 mls/hr UD IV 12/12/24 12:00 Ceftriaxone Sodium 50 ml @ 100 mls/hr DAILY@09 IV 12/13/24 09:00 12/15/24 08:47 100 MLS/HR objective Awake alert oriented x3 HEENT: Normocephalic, no JVD Lungs: Bilateral good air entry CVS: S1, S2 regular rate rhythm Abdomen: Soft, bowel sounds present 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 Hyperkalemia Chronic systolic CHF s/p pacemaker DM type II HTN HLD Anemia of CKD Secondary hyperparathyroidism Hyperphosphatemia Assessment/Plan hemodialysis on MWF schedule pain control continue IV abx PT has been ambulating patient . stable from renal standpoint Dietary Evaluation Review Comments: Encourage and monitor PO feeding, Accommondate his likes/dislikes Expected Outcomes/Goals: maintain wt, Plan discussed with: Patient MAXI LEWIS MD Dec 15, 2024 09:28
[2024-12-15] MEDS ORDERED: diphenhdrAMINE HCL 50 MG/1 ML VL IV PRN (16:15)
[2024-12-15] MEDS: MORPHINE SULFATE INJ 2 MG/ml SYRG IV PRN (18:40)
[2024-12-15] MEDS: LORazepam 0.5 MG TAB PO PRN (21:36)
[2024-12-15] MEDS: VANCOMYCIN 500mg/100mL 100 ML IV ONE (22:28)
[2024-12-16] VITALS (8 sets, daily range): BP systolic 124–169; BP diastolic 56–100; PULSE 72–87; RESP 16–19; TEMP 97.9–98.6; O2SAT 90–97
[2024-12-16] MEDS: HYDROcodone-ACET 10/325MG TAB PO PRN (00:15)
[2024-12-16] MEDS: MORPHINE SULFATE INJ 2 MG/ml SYRG IV PRN (04:52)
--- NOTE | 2024-12-16 09:51 | DVH ---
CHEST RADIOGRAPH Indication: New dialysis Technique: Single frontal view of the chest was obtained COMPARISON: XY CHEST XRAY 1 VIEW on DOS: 12/01/24, XY CHEST PORTABLE on DOS: 08/14/24, XY CHEST XRAY 1 VIEW on DOS: 07/30/24, XY CHEST PORTABLE on DOS: 07/16/24, XY CHEST XRAY 1 VIEW on DOS: 12/22/23 FINDINGS: Lines and Tubes: None Lungs: Right basilar atelectasis / infiltrate. Stable borderline cardiomegaly. Pacemaker wire is int act. Pleura: No effusion. No pneumothorax. Cardiomediastinal contours: Unremarkable Bones: Unremarkable IMPRESSION: 1. Mild right basilar atelectasis / infiltrate. No consolidation No pleural effusions or CHF pattern
--- NOTE | 2024-12-16 11:37 | DVHPN2 ---
Progress Note - Dictate Date Seen: Dec 16, 2024 Medical Necessity Reason Pt with a Central, PICC or Fol: No Subjective no acute issues overnight vital signs Vital Sign Date Time Temp Pulse Resp B/P (MAP) Pulse Ox O2 Delivery O2 Flow Rate FiO2 12/16/24 09:31 160/64 12/16/24 09:30 75 12/16/24 08:07 16 12/16/24 05:00 97.9 94 97.9 12/15/24 20:00 Room Air* 0 21 Total Intake and Output 12/15/24 12/15/24 12/16/24 15:00 23:00 07:00 Intake Total 50 ml 780 ml 1600 ml Output Total 0 ml 200 ml Balance 50 ml 780 ml 1400 ml medications Current Medications Medications Dose Ordered Sig/Caroline Route Start Time Stop Time Status Last Admin Dose Admin Multivit/Ca Carb/ B Cmplx/FA/Prenat 1 tab DAILY PO 12/10/24 10:00 12/16/24 09:30 1 TAB Atorvastatin Calcium 20 mg HS PO 12/10/24 22:00 12/15/24 22:28 20 MG Aspirin 81 mg DAILY PO 12/10/24 10:00 12/16/24 09:30 81 MG Metoprolol Tartrate 50 mg BID PO 12/10/24 10:00 12/16/24 09:30 50 MG Hydralazine HCl 10 mg Q6HP PRN IV 12/10/24 05:15 12/14/24 16:31 10 MG Diagnostic Test (Pha) 1 strip IQ4HR 12/10/24 08:00 12/16/24 08:07 1 STRIP Insulin Human Regular IQ4HR SC 12/10/24 08:00 12/16/24 08:15 3 UNITS Dextrose 50 ml UD PRN IV 12/10/24 05:15 Sodium Chloride 10 ml Q8HR IV 12/10/24 06:00 12/16/24 07:02 10 ML Ondansetron HCl 4 mg Q4HP PRN IV 12/10/24 05:15 Docusate Sodium 100 mg BIDPRN PRN PO 12/10/24 05:15 12/16/24 08:06 100 MG Acetaminophen 650 mg Q6HP PRN PO 12/10/24 05:15 12/13/24 21:29 650 MG Nitroglycerin 0.4 mg Q5MINP PRN SL 12/10/24 05:45 Morphine Sulfate 2 mg Q30M PRN IV 12/10/24 05:45 12/15/24 18:40 2 MG Methocarbamol 750 mg QIDPRN PRN PO 12/10/24 18:45 12/15/24 10:43 750 MG Nifedipine 30 mg DAILY PO 12/12/24 10:00 12/16/24 09:31 30 MG Sevelamer HCl 2,400 mg TIDWM PO 12/12/24 12:00 12/16/24 08:06 2,400 MG Zinc Acetate/ Diphenhydramine 1 applic Q6HP PRN TOP 12/12/24 11:00 12/14/24 20:29 1 APPLIC Vancomycin HCl 0 ml @ 0 mls/hr UD IV 12/12/24 12:00 Ceftriaxone Sodium 50 ml @ 100 mls/hr DAILY@09 IV 12/13/24 09:00 12/16/24 08:50 100 MLS/HR Morphine Sulfate 2 mg Q3HPRN PRN IV 12/15/24 16:15 12/16/24 08:07 2 MG Diphenhydramine HCl 25 mg Q6HP PRN IV 12/15/24 16:15 Lorazepam 1 mg Q8HP PRN PO 12/15/24 16:15 12/16/24 09:30 1 MG Trazodone HCl 50 mg HS PO 12/15/24 22:00 Acetaminophen/ Hydrocodone Bitart 1 tab Q4HP PRN PO 12/15/24 16:15 12/16/24 10:39 1 TAB objective Awake alert oriented x3 HEENT: Normocephalic, no JVD Lungs: Bilateral good air entry CVS: S1, S2 regular rate rhythm Abdomen: Soft, bowel sounds present 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 Hyperkalemia Chronic systolic CHF s/p pacemaker DM type II HTN HLD Anemia of CKD Secondary hyperparathyroidism Hyperphosphatemia Assessment/Plan hemodialysis on MWF schedule pain control continue IV abx PT has been ambulating patient . stable from renal standpoint Dietary Evaluation Review Comments: Encourage and monitor PO feeding, Accommondate his likes/dislikes Expected Outcomes/Goals: maintain wt, Plan discussed with: Patient MAXI LEWIS MD Dec 16, 2024 11:37
--- NOTE | 2024-12-16 17:34 | DVHPN2 ---
Subjective We will order PICC line and arrange IV antibiotics for six weeks for possible diskitis/osteomyelitis at L3-L4. Changes from previous H/P or p: No Changes Eyes: No Pain, No Vision change, No Conjunctivae inflammation, No Eyelid inflammation, No Other, No Redness ENT: No Ear pain, No Ear discharge, No Nose pain, No Nose discharge, No Nose congestion, No Mouth pain, No Mouth swelling, No Throat pain, No Throat swelling, No Other Cardiovascular: No Chest Pain, No Palpitations, No Orthopnea, No Paroxysmal Noc. Dyspnea, No Edema, No Lt Headedness, No Other Respiratory: No Cough, No Dry, No Shortness of breath, No SOB with excertion, No Wheezing, No Hemoptysis, No Pleuritic Pain, No Sputum, No Other Gastrointestinal: No Nausea, No Vomiting, No Abdominal Pain, No Diarrhea, No Constipation, No Melena, No Hematochezia, No Other Genitourinary: No Dysuria, No Frequency, No Incontinence, No Hematuria, No Retention; Other (On hemodialysis, av fistula left upper extremity.) Musculoskeletal: other (Left upper extremity AV fistula); No neck pain, No shoulder pain, No arm pain; back pain (Lower); No hand pain, No leg pain, No foot pain Skin: No Rash, No Lesions, No Jaundice, No Bruising, No Other Objective Vitals Vital Signs Date Time Temp Pulse Resp B/P (MAP) Pulse Ox O2 Delivery O2 Flow Rate FiO2 12/16/24 17:00 98.2 72 16 161/75 (103) 91 98.2 12/15/24 20:00 Room Air* 0 21 Intake/Output Intake and Output 12/16/24 07:00 Intake Total 2430 ml Output Total 200 ml Balance 2230 ml Intake Oral 2280 ml IV Total 150 ml Output Urine Total 200 ml Exam HEENT pupils are reactive Neck is supple CV is S1-S2 regular rate and rhythm Respiratory diminished breath sound bases GI positive bowel sounds 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 Medications Current Medications Medications Dose Ordered Sig/Caroline Route Start Time Stop Time Status Last Admin Dose Admin Multivit/Ca Carb/ B Cmplx/FA/Prenat 1 tab DAILY PO 12/10/24 10:00 12/16/24 09:30 1 TAB Atorvastatin Calcium 20 mg HS PO 12/10/24 22:00 12/15/24 22:28 20 MG Aspirin 81 mg DAILY PO 12/10/24 10:00 12/16/24 09:30 81 MG Metoprolol Tartrate 50 mg BID PO 12/10/24 10:00 12/16/24 09:30 50 MG Hydralazine HCl 10 mg Q6HP PRN IV 12/10/24 05:15 12/14/24 16:31 10 MG Diagnostic Test (Pha) 1 strip IQ4HR 12/10/24 08:00 12/16/24 15:52 1 STRIP Insulin Human Regular IQ4HR SC 12/10/24 08:00 12/16/24 16:24 2 UNITS Dextrose 50 ml UD PRN IV 12/10/24 05:15 Sodium Chloride 10 ml Q8HR IV 12/10/24 06:00 12/16/24 14:00 10 ML Ondansetron HCl 4 mg Q4HP PRN IV 12/10/24 05:15 Docusate Sodium 100 mg BIDPRN PRN PO 12/10/24 05:15 12/16/24 08:06 100 MG Acetaminophen 650 mg Q6HP PRN PO 12/10/24 05:15 12/13/24 21:29 650 MG Nitroglycerin 0.4 mg Q5MINP PRN SL 12/10/24 05:45 Morphine Sulfate 2 mg Q30M PRN IV 12/10/24 05:45 12/16/24 16:07 2 MG Methocarbamol 750 mg QIDPRN PRN PO 12/10/24 18:45 12/15/24 10:43 750 MG Nifedipine 30 mg DAILY PO 12/12/24 10:00 12/16/24 09:31 30 MG Sevelamer HCl 2,400 mg TIDWM PO 12/12/24 12:00 12/16/24 11:59 2,400 MG Zinc Acetate/ Diphenhydramine 1 applic Q6HP PRN TOP 12/12/24 11:00 12/14/24 20:29 1 APPLIC Vancomycin HCl 0 ml @ 0 mls/hr UD IV 12/12/24 12:00 Ceftriaxone Sodium 50 ml @ 100 mls/hr DAILY@09 IV 12/13/24 09:00 12/16/24 08:50 100 MLS/HR Morphine Sulfate 2 mg Q3HPRN PRN IV 12/15/24 16:15 12/16/24 12:14 2 MG Diphenhydramine HCl 25 mg Q6HP PRN IV 12/15/24 16:15 Lorazepam 1 mg Q8HP PRN PO 12/15/24 16:15 12/16/24 09:30 1 MG Trazodone HCl 50 mg HS PO 12/15/24 22:00 Acetaminophen/ Hydrocodone Bitart 1 tab Q4HP PRN PO 12/15/24 16:15 12/16/24 14:46 1 TAB Laboratory Results Laboratory Tests 12/11/24 05:39 12/14/24 05:19 12/15/24 05:27 Microbiology Microbiology Date/Time Source Procedure Growth Status 12/13/24 14:50 Blood Blood Culture - Preliminary NO GROWTH AFTER 72 HOURS OF INCUBATION. Resulted Assessment/Plan Assessment/Plan 54-year-old male with a known history of end-stage renal disease on hemodialysis, diabetes mellitus type 2, hypertension, dyslipidemia, status post pacemaker placement, chronic congestive heart failure with systolic dysfunction, coronary artery disease who initially presented to us with low back pain after he started having back pain when he was dragging a weighted a box found to have 1. Acute low back pain with a L3-4 spinal canal stenosis 2. End-stage renal disease on hemodialysis 3. Acute diskitis osteomyelitis at L3-4 4. Status post pacemaker placement 5. Diabetes mellitus type 2 6. Hypertension 7. Dyslipidemia 8. Anxiety disorder -hemodialysis per Nephrology. -continue pain meds, spine surgery consultation appreciated, IIV antibiotics -physical therapy evaluation and treatment. Plan discussed with: Patient Date of Service: Dec 16, 2024 Billing Provider: ADRIAN ORDONEZ MD Common Visit Codes: [id number] INP/OBS CARE(MOD) ADRIAN ORDONEZ MD Dec 16, 2024 17:34
--- NOTE | 2024-12-16 17:34 | DVHPN2 ---
Subjective We will order PICC line and arrange IV antibiotics for six weeks for possible diskitis/osteomyelitis at L3-L4. Changes from previous H/P or p: No Changes Eyes: No Pain, No Vision change, No Conjunctivae inflammation, No Eyelid inflammation, No Other, No Redness ENT: No Ear pain, No Ear discharge, No Nose pain, No Nose discharge, No Nose congestion, No Mouth pain, No Mouth swelling, No Throat pain, No Throat swelling, No Other Cardiovascular: No Chest Pain, No Palpitations, No Orthopnea, No Paroxysmal Noc. Dyspnea, No Edema, No Lt Headedness, No Other Respiratory: No Cough, No Dry, No Shortness of breath, No SOB with excertion, No Wheezing, No Hemoptysis, No Pleuritic Pain, No Sputum, No Other Gastrointestinal: No Nausea, No Vomiting, No Abdominal Pain, No Diarrhea, No Constipation, No Melena, No Hematochezia, No Other Genitourinary: No Dysuria, No Frequency, No Incontinence, No Hematuria, No Retention; Other (On hemodialysis, av fistula left upper extremity.) Musculoskeletal: other (Left upper extremity AV fistula); No neck pain, No shoulder pain, No arm pain; back pain (Lower); No hand pain, No leg pain, No foot pain Skin: No Rash, No Lesions, No Jaundice, No Bruising, No Other Objective Vitals Vital Signs Date Time Temp Pulse Resp B/P (MAP) Pulse Ox O2 Delivery O2 Flow Rate FiO2 12/16/24 17:00 98.2 72 16 161/75 (103) 91 98.2 12/15/24 20:00 Room Air* 0 21 Intake/Output Intake and Output 12/16/24 07:00 Intake Total 2430 ml Output Total 200 ml Balance 2230 ml Intake Oral 2280 ml IV Total 150 ml Output Urine Total 200 ml Exam HEENT pupils are reactive Neck is supple CV is S1-S2 regular rate and rhythm Respiratory diminished breath sound bases GI positive bowel sounds Extremity 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 Medications Current Medications Medications Dose Ordered Sig/Caroline Route Start Time Stop Time Status Last Admin Dose Admin Multivit/Ca Carb/ B Cmplx/FA/Prenat 1 tab DAILY PO 12/10/24 10:00 12/16/24 09:30 1 TAB Atorvastatin Calcium 20 mg HS PO 12/10/24 22:00 12/15/24 22:28 20 MG Aspirin 81 mg DAILY PO 12/10/24 10:00 12/16/24 09:30 81 MG Metoprolol Tartrate 50 mg BID PO 12/10/24 10:00 12/16/24 09:30 50 MG Hydralazine HCl 10 mg Q6HP PRN IV 12/10/24 05:15 12/14/24 16:31 10 MG Diagnostic Test (Pha) 1 strip IQ4HR 12/10/24 08:00 12/16/24 15:52 1 STRIP Insulin Human Regular IQ4HR SC 12/10/24 08:00 12/16/24 16:24 2 UNITS Dextrose 50 ml UD PRN IV 12/10/24 05:15 Sodium Chloride 10 ml Q8HR IV 12/10/24 06:00 12/16/24 14:00 10 ML Ondansetron HCl 4 mg Q4HP PRN IV 12/10/24 05:15 Docusate Sodium 100 mg BIDPRN PRN PO 12/10/24 05:15 12/16/24 08:06 100 MG Acetaminophen 650 mg Q6HP PRN PO 12/10/24 05:15 12/13/24 21:29 650 MG Nitroglycerin 0.4 mg Q5MINP PRN SL 12/10/24 05:45 Morphine Sulfate 2 mg Q30M PRN IV 12/10/24 05:45 12/16/24 16:07 2 MG Methocarbamol 750 mg QIDPRN PRN PO 12/10/24 18:45 12/15/24 10:43 750 MG Nifedipine 30 mg DAILY PO 12/12/24 10:00 12/16/24 09:31 30 MG Sevelamer HCl 2,400 mg TIDWM PO 12/12/24 12:00 12/16/24 11:59 2,400 MG Zinc Acetate/ Diphenhydramine 1 applic Q6HP PRN TOP 12/12/24 11:00 12/14/24 20:29 1 APPLIC Vancomycin HCl 0 ml @ 0 mls/hr UD IV 12/12/24 12:00 Ceftriaxone Sodium 50 ml @ 100 mls/hr DAILY@09 IV 12/13/24 09:00 12/16/24 08:50 100 MLS/HR Morphine Sulfate 2 mg Q3HPRN PRN IV 12/15/24 16:15 12/16/24 12:14 2 MG Diphenhydramine HCl 25 mg Q6HP PRN IV 12/15/24 16:15 Lorazepam 1 mg Q8HP PRN PO 12/15/24 16:15 12/16/24 09:30 1 MG Trazodone HCl 50 mg HS PO 12/15/24 22:00 Acetaminophen/ Hydrocodone Bitart 1 tab Q4HP PRN PO 12/15/24 16:15 12/16/24 14:46 1 TAB Laboratory Results Laboratory Tests 12/11/24 05:39 12/14/24 05:19 12/15/24 05:27 Microbiology Microbiology Date/Time Source Procedure Growth Status 12/13/24 14:50 Blood Blood Culture - Preliminary NO GROWTH AFTER 72 HOURS OF INCUBATION. Resulted Assessment/Plan Assessment/Plan 54-year-old male with a known history of end-stage renal disease on hemodialysis, diabetes mellitus type 2, hypertension, dyslipidemia, status post pacemaker placement, chronic congestive heart failure with systolic dysfunction, coronary artery disease who initially presented to us with low back pain after he started having back pain when he was dragging a weighted a box found to have 1. Acute low back pain with a L3-4 spinal canal stenosis 2. End-stage renal disease on hemodialysis 3. Acute diskitis osteomyelitis at L3-4 4. Status post pacemaker placement 5. Diabetes mellitus type 2 6. Hypertension 7. Dyslipidemia 8. Anxiety disorder -continue pain meds, spine surgery consultation, ID consultation, IV antibiotics -physical therapy evaluation and treatment. Plan discussed with: Patient Date of Service: Dec 15, 2024 Billing Provider: ADRIAN ORDONEZ MD Common Visit Codes: [id number] INP/OBS CARE(MOD) ADRIAN ORDONEZ MD Dec 16, 2024 17:34
[2024-12-17] VITALS (8 sets, daily range): BP systolic 140–161; BP diastolic 86–99; PULSE 65–74; RESP 16–19; TEMP 98–98.7; O2SAT 90–95
[2024-12-17 07:06] LABS: Hematocrit 36.1 % (41.0-53.0); Hemoglobin 12.2 g/dL (13.5-17.5); Mean Corpuscular Hemoglobin 30.7 pg (28.0-32.0); Mean Corpuscular Volume 90.9 fL (80.0-100.0); Nucleated Red Blood Cells % 0.2 %
--- NOTE | 2024-12-17 15:38 | DVHPN2 ---
Progress Note - Dictate Date Seen: Dec 17, 2024 Medical Necessity Reason Pt with a Central, PICC or Fol: No Subjective no acute issues overnight Patient has been ambulating more. Pain has been easing. vital signs Vital Sign Date Time Temp Pulse Resp B/P (MAP) Pulse Ox O2 Delivery O2 Flow Rate FiO2 12/17/24 14:10 65 19 166/97 12/17/24 13:00 98.4 94 98.4 12/17/24 08:00 Room Air* 0 21 Total Intake and Output 12/16/24 12/16/24 12/17/24 15:00 23:00 07:00 Intake Total 50 ml 275 ml 240 ml Output Total 0 ml Balance 50 ml 275 ml 240 ml medications Current Medications Medications Dose Ordered Sig/Caroline Route Start Time Stop Time Status Last Admin Dose Admin Multivit/Ca Carb/ B Cmplx/FA/Prenat 1 tab DAILY PO 12/10/24 10:00 12/17/24 09:51 1 TAB Atorvastatin Calcium 20 mg HS PO 12/10/24 22:00 12/16/24 21:07 20 MG Aspirin 81 mg DAILY PO 12/10/24 10:00 12/17/24 09:51 81 MG Metoprolol Tartrate 50 mg BID PO 12/10/24 10:00 12/17/24 09:52 50 MG Hydralazine HCl 10 mg Q6HP PRN IV 12/10/24 05:15 12/17/24 12:11 10 MG Diagnostic Test (Pha) 1 strip IQ4HR 12/10/24 08:00 12/17/24 11:30 1 STRIP Insulin Human Regular IQ4HR SC 12/10/24 08:00 12/16/24 23:09 2 UNITS Dextrose 50 ml UD PRN IV 12/10/24 05:15 Sodium Chloride 10 ml Q8HR IV 12/10/24 06:00 12/17/24 13:52 10 ML Ondansetron HCl 4 mg Q4HP PRN IV 12/10/24 05:15 Docusate Sodium 100 mg BIDPRN PRN PO 12/10/24 05:15 12/17/24 08:25 100 MG Acetaminophen 650 mg Q6HP PRN PO 12/10/24 05:15 12/13/24 21:29 650 MG Nitroglycerin 0.4 mg Q5MINP PRN SL 12/10/24 05:45 Morphine Sulfate 2 mg Q30M PRN IV 12/10/24 05:45 12/17/24 14:10 2 MG Methocarbamol 750 mg QIDPRN PRN PO 12/10/24 18:45 12/15/24 10:43 750 MG Nifedipine 30 mg DAILY PO 12/12/24 10:00 12/17/24 09:51 30 MG Sevelamer HCl 2,400 mg TIDWM PO 12/12/24 12:00 12/17/24 12:07 2,400 MG Zinc Acetate/ Diphenhydramine 1 applic Q6HP PRN TOP 12/12/24 11:00 12/14/24 20:29 1 APPLIC Vancomycin HCl 0 ml @ 0 mls/hr UD IV 12/12/24 12:00 Ceftriaxone Sodium 50 ml @ 100 mls/hr DAILY@09 IV 12/13/24 09:00 12/17/24 08:30 100 MLS/HR Morphine Sulfate 2 mg Q3HPRN PRN IV 12/15/24 16:15 12/17/24 10:00 2 MG Diphenhydramine HCl 25 mg Q6HP PRN IV 12/15/24 16:15 Lorazepam 1 mg Q8HP PRN PO 12/15/24 16:15 12/17/24 08:37 1 MG Trazodone HCl 50 mg HS PO 12/15/24 22:00 12/17/24 00:17 50 MG Acetaminophen/ Hydrocodone Bitart 1 tab Q4HP PRN PO 12/15/24 16:15 12/17/24 11:28 1 TAB objective Awake alert oriented x3 HEENT: Normocephalic, no JVD Lungs: Bilateral good air entry CVS: S1, S2 regular rate rhythm Abdomen: Soft, bowel sounds present 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 Hyperkalemia Chronic systolic CHF s/p pacemaker DM type II HTN HLD Anemia of CKD Secondary hyperparathyroidism Hyperphosphatemia Assessment/Plan hemodialysis on MWF schedule pain control Arrangements are being made for the patient to be discharged to a detention facility for physical therapy. Also patient will need arrangements for dialysis locally at [facility]. We will continue with IV antibiotics for six weeks. Dietary Evaluation Review Comments: Encourage and monitor PO feeding, Accommondate his likes/dislikes Expected Outcomes/Goals: maintain wt, Plan discussed with: Patient MAXI LEWIS MD Dec 17, 2024 15:37
--- NOTE | 2024-12-17 18:00 | DVHPN2 ---
Subjective We will order PICC line and arrange IV antibiotics for six weeks for possible diskitis/osteomyelitis at L3-L4. Changes from previous H/P or p: No Changes Eyes: No Pain, No Vision change, No Conjunctivae inflammation, No Eyelid inflammation, No Other, No Redness ENT: No Ear pain, No Ear discharge, No Nose pain, No Nose discharge, No Nose congestion, No Mouth pain, No Mouth swelling, No Throat pain, No Throat swelling, No Other Cardiovascular: No Chest Pain, No Palpitations, No Orthopnea, No Paroxysmal Noc. Dyspnea, No Edema, No Lt Headedness, No Other Respiratory: No Cough, No Dry, No Shortness of breath, No SOB with excertion, No Wheezing, No Hemoptysis, No Pleuritic Pain, No Sputum, No Other Gastrointestinal: No Nausea, No Vomiting, No Abdominal Pain, No Diarrhea, No Constipation, No Melena, No Hematochezia, No Other Genitourinary: No Dysuria, No Frequency, No Incontinence, No Hematuria, No Retention; Other (On hemodialysis, av fistula left upper extremity.) Musculoskeletal: other (Left upper extremity AV fistula); No neck pain, No shoulder pain, No arm pain; back pain (Lower); No hand pain, No leg pain, No foot pain Skin: No Rash, No Lesions, No Jaundice, No Bruising, No Other Objective Vitals Vital Signs Date Time Temp Pulse Resp B/P (MAP) Pulse Ox O2 Delivery O2 Flow Rate FiO2 12/17/24 17:00 98.4 73 19 160/95 (116) 94 98.4 12/17/24 08:00 Room Air* 0 21 Intake/Output Intake and Output 12/17/24 07:00 Intake Total 565 ml Output Total 0 ml Balance 565 ml Intake Oral 515 ml IV Total 50 ml Output Urine Total 0 ml # Bowel Movements 1 Exam HEENT pupils are reactive Neck is supple CV is S1-S2 regular rate and rhythm Respiratory diminished breath sound bases GI positive bowel sounds Extremity no edema 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 motor 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 Medications Current Medications Medications Dose Ordered Sig/Caroline Route Start Time Stop Time Status Last Admin Dose Admin Multivit/Ca Carb/ B Cmplx/FA/Prenat 1 tab DAILY PO 12/10/24 10:00 12/17/24 09:51 1 TAB Atorvastatin Calcium 20 mg HS PO 12/10/24 22:00 12/16/24 21:07 20 MG Aspirin 81 mg DAILY PO 12/10/24 10:00 12/17/24 09:51 81 MG Metoprolol Tartrate 50 mg BID PO 12/10/24 10:00 12/17/24 09:52 50 MG Hydralazine HCl 10 mg Q6HP PRN IV 12/10/24 05:15 12/17/24 12:11 10 MG Diagnostic Test (Pha) 1 strip IQ4HR 12/10/24 08:00 12/17/24 15:39 1 STRIP Insulin Human Regular IQ4HR SC 12/10/24 08:00 12/17/24 17:45 2 UNITS Dextrose 50 ml UD PRN IV 12/10/24 05:15 Sodium Chloride 10 ml Q8HR IV 12/10/24 06:00 12/17/24 13:52 10 ML Ondansetron HCl 4 mg Q4HP PRN IV 12/10/24 05:15 Docusate Sodium 100 mg BIDPRN PRN PO 12/10/24 05:15 12/17/24 08:25 100 MG Acetaminophen 650 mg Q6HP PRN PO 12/10/24 05:15 12/13/24 21:29 650 MG Nitroglycerin 0.4 mg Q5MINP PRN SL 12/10/24 05:45 Morphine Sulfate 2 mg Q30M PRN IV 12/10/24 05:45 12/17/24 14:10 2 MG Methocarbamol 750 mg QIDPRN PRN PO 12/10/24 18:45 12/15/24 10:43 750 MG Nifedipine 30 mg DAILY PO 12/12/24 10:00 12/17/24 09:51 30 MG Sevelamer HCl 2,400 mg TIDWM PO 12/12/24 12:00 12/17/24 12:07 2,400 MG Zinc Acetate/ Diphenhydramine 1 applic Q6HP PRN TOP 12/12/24 11:00 12/14/24 20:29 1 APPLIC Vancomycin HCl 0 ml @ 0 mls/hr UD IV 12/12/24 12:00 Ceftriaxone Sodium 50 ml @ 100 mls/hr DAILY@09 IV 12/13/24 09:00 12/17/24 08:30 100 MLS/HR Morphine Sulfate 2 mg Q3HPRN PRN IV 12/15/24 16:15 8/31/25 10:00 2 MG Diphenhydramine HCl 25 mg Q6HP PRN IV 12/15/24 16:15 Lorazepam 1 mg Q8HP PRN PO 12/15/24 16:15 12/17/24 08:37 1 MG Trazodone HCl 50 mg HS PO 12/15/24 22:00 12/17/24 00:17 50 MG Acetaminophen/ Hydrocodone Bitart 1 tab Q4HP PRN PO 12/15/24 16:15 12/17/24 16:51 1 TAB Laboratory Results Laboratory Tests 12/14/24 05:19 12/17/24 05:36 Microbiology Microbiology Date/Time Source Procedure Growth Status 12/13/24 14:50 Blood Blood Culture - Preliminary NO GROWTH AFTER 72 HOURS OF INCUBATION. Resulted Assessment/Plan Assessment/Plan 54-year-old male with a known history of end-stage renal disease on hemodialysis, diabetes mellitus type 2, hypertension, dyslipidemia, status post pacemaker placement, chronic congestive heart failure with systolic dysfunction, coronary artery disease who initially presented to us with low back pain after he started having back pain when he was dragging a weighted a box found to have 1. Acute low back pain with a L3-4 spinal canal stenosis 2. End-stage renal disease on hemodialysis 3. Acute diskitis osteomyelitis at L3-4 4. Status post pacemaker placement 5. Diabetes mellitus type 2 6. Hypertension 7. Dyslipidemia 8. Anxiety disorder -hemodialysis per Nephrology. -continue pain meds, spine surgery consultation appreciated, IIV antibiotics -physical therapy evaluation and treatment. Plan discussed with: Patient My Orders Orders - ADRIAN ORDONEZ MD Procedure Category Date Status Time * Structural Engineering Technician CONS 12/17/24 Transmitted Consult Date of Service: Dec 17, 2024 Billing Provider: ADRIAN ORDONEZ MD Common Visit Codes: [id number] INP/OBS CARE(MOD) ADRIAN ORDONEZ MD Dec 17, 2024 18:00
[2024-12-17] MEDS: ONDANSETRON HCL 4 MG/2 ML VIAL IV PRN (21:43)
[2024-12-18] VITALS (9 sets, daily range): BP systolic 136–173; BP diastolic 66–103; PULSE 66–79; RESP 15–17; TEMP 97.9–99.2; O2SAT 88–96
[2024-12-18 07:04] LABS: Hematocrit 33.1 % (41.0-53.0); Hemoglobin 11.4 g/dL (13.5-17.5); Mean Corpuscular Hemoglobin 30.8 pg (28.0-32.0); Mean Corpuscular Volume 89.6 fL (80.0-100.0); Nucleated Red Blood Cells % 0.0 %
[2024-12-18 13:44] LABS: Hepatitis B Surface Antigen Negative (Negative); Hepatitis C Antibody Negative (Negative)
[2024-12-18] MEDS: PANTOPRAZOLE 40 MG/10 ML VIAL INJ IV ONE (14:58)
[2024-12-18] MEDS: VANCOMYCIN 1GM/250ML KIT 250 ML IV ONE (14:58)
--- NOTE | 2024-12-18 17:47 | DVHPN2 ---
Subjective Patient is currently on IV antibiotics. We will be discharged to shelter facility for five more weeks of IV antibiotics with dialysis. Changes from previous H/P or p: No Changes Eyes: No Pain, No Vision change, No Conjunctivae inflammation, No Eyelid inflammation, No Other, No Redness ENT: No Ear pain, No Ear discharge, No Nose pain, No Nose discharge, No Nose congestion, No Mouth pain, No Mouth swelling, No Throat pain, No Throat swelling, No Other Cardiovascular: No Chest Pain, No Palpitations, No Orthopnea, No Paroxysmal Noc. Dyspnea, No Edema, No Lt Headedness, No Other Respiratory: No Cough, No Dry, No Shortness of breath, No SOB with excertion, No Wheezing, No Hemoptysis, No Pleuritic Pain, No Sputum, No Other Gastrointestinal: No Nausea, No Vomiting, No Abdominal Pain, No Diarrhea, No Constipation, No Melena, No Hematochezia, No Other Genitourinary: No Dysuria, No Frequency, No Incontinence, No Hematuria, No Retention; Other (On hemodialysis, av fistula left upper extremity.) Musculoskeletal: other (Left upper extremity AV fistula); No neck pain, No shoulder pain, No arm pain; back pain (Lower); No hand pain, No leg pain, No foot pain Skin: No Rash, No Lesions, No Jaundice, No Bruising, No Other Objective Vitals Vital Signs Date Time Temp Pulse Resp B/P (MAP) Pulse Ox O2 Delivery O2 Flow Rate FiO2 12/18/24 16:53 98.1 78 16 164/100 (121) 88 98.1 12/18/24 08:00 Room Air* 0 21 Intake/Output Intake and Output 12/18/24 07:00 Intake Total 1520 ml Output Total 0 ml Balance 1520 ml Intake Oral 1470 ml IV Total 50 ml Output Urine Total 0 ml Exam HEENT pupils are reactive Neck is supple CV is S1-S2 regular rate and rhythm Respiratory diminished breath sound bases GI positive bowel sounds Extremity no edema 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 motor deficit Medications Current Medications Medications Dose Ordered Sig/Caroline Route Start Time Stop Time Status Last Admin Dose Admin Multivit/Ca Carb/ B Cmplx/FA/Prenat 1 tab DAILY PO 12/10/24 10:00 12/17/24 09:51 1 TAB Atorvastatin Calcium 20 mg HS PO 12/10/24 22:00 12/17/24 21:43 20 MG Aspirin 81 mg DAILY PO 12/10/24 10:00 12/17/24 09:51 81 MG Metoprolol Tartrate 50 mg BID PO 12/10/24 10:00 12/17/24 21:43 50 MG Hydralazine HCl 10 mg Q6HP PRN IV 12/10/24 05:15 12/17/24 12:11 10 MG Diagnostic Test (Pha) 1 strip IQ4HR 12/10/24 08:00 12/18/24 16:00 1 STRIP Insulin Human Regular IQ4HR SC 12/10/24 08:00 12/18/24 17:07 3 UNITS Dextrose 50 ml UD PRN IV 12/10/24 05:15 Sodium Chloride 10 ml Q8HR IV 12/10/24 06:00 12/18/24 14:59 10 ML Ondansetron HCl 4 mg Q4HP PRN IV 12/10/24 05:15 12/17/24 21:43 4 MG Docusate Sodium 100 mg BIDPRN PRN PO 12/10/24 05:15 12/17/24 08:25 100 MG Acetaminophen 650 mg Q6HP PRN PO 12/10/24 05:15 12/13/24 21:29 650 MG Nitroglycerin 0.4 mg Q5MINP PRN SL 12/10/24 05:45 Morphine Sulfate 2 mg Q30M PRN IV 12/10/24 05:45 12/18/24 12:52 2 MG Methocarbamol 750 mg QIDPRN PRN PO 12/10/24 18:45 12/18/24 15:58 750 MG Nifedipine 30 mg DAILY PO 12/12/24 10:00 12/17/24 09:51 30 MG Sevelamer HCl 2,400 mg TIDWM PO 12/12/24 12:00 12/18/24 17:07 2,400 MG Zinc Acetate/ Diphenhydramine 1 applic Q6HP PRN TOP 12/12/24 11:00 12/17/24 21:35 1 APPLIC Vancomycin HCl 0 ml @ 0 mls/hr UD IV 12/12/24 12:00 Ceftriaxone Sodium 50 ml @ 100 mls/hr DAILY@09 IV 12/13/24 09:00 12/17/24 08:30 100 MLS/HR Morphine Sulfate 2 mg Q3HPRN PRN IV 12/15/24 16:15 12/18/24 04:13 2 MG Diphenhydramine HCl 25 mg Q6HP PRN IV 12/15/24 16:15 Lorazepam 1 mg Q8HP PRN PO 12/15/24 16:15 12/18/24 15:56 1 MG Trazodone HCl 50 mg HS PO 12/15/24 22:00 12/17/24 21:43 50 MG Acetaminophen/ Hydrocodone Bitart 1 tab Q4HP PRN PO 12/15/24 16:15 12/17/24 16:51 1 TAB Pantoprazole Sodium 40 mg DAILY IV 12/19/24 10:00 Laboratory Results Laboratory Tests 12/14/24 05:19 12/18/24 06:00 Microbiology Microbiology Date/Time Source Procedure Growth Status 12/13/24 14:50 Blood Blood Culture - Final NO GROWTH AFTER 5 DAYS OF INCUBATION. Complete Assessment/Plan Assessment/Plan 54-year-old male with a known history of end-stage renal disease on hemodialysis, diabetes mellitus type 2, hypertension, dyslipidemia, status post pacemaker placement, chronic congestive heart failure with systolic dysfunction, coronary artery disease who initially presented to us with low back pain after he started having back pain when he was dragging a weighted a box found to have 1. Acute low back pain with a L3-4 spinal canal stenosis 2. End-stage renal disease on hemodialysis 3. Acute diskitis osteomyelitis at L3-4 4. Status post pacemaker placement 5. Diabetes mellitus type 2 6. Hypertension 7. Dyslipidemia 8. Anxiety disorder -hemodialysis per Nephrology. -continue pain meds, spine surgery consultation appreciated, IIV antibiotics -physical therapy evaluation and treatment. Plan discussed with: Patient My Orders Orders - ADRIAN ORDONEZ MD Procedure Category Date Status Time Pantoprazole PHA 12/19/24 In Process (Protonix) 10:00 Date of Service: Dec 18, 2024 Billing Provider: ADRIAN ORDONEZ MD Common Visit Codes: [id number] INP/OBS CARE(MOD) ADRIAN ORDONEZ MD Dec 18, 2024 17:47
--- NOTE | 2024-12-18 22:27 | DVHPN2 ---
Progress Note - Dictate Date Seen: Dec 18, 2024 Medical Necessity Reason Pt with a Central, PICC or Fol: No Subjective no acute issues overnight vital signs Vital Sign Date Time Temp Pulse Resp B/P (MAP) Pulse Ox O2 Delivery O2 Flow Rate FiO2 12/18/24 21:18 78 16 166/94 12/18/24 21:00 99.2 90 99.2 12/18/24 20:00 Room Air* 0 21 Total Intake and Output 12/17/24 12/17/24 12/18/24 15:00 23:00 07:00 Intake Total 50 ml 1320 ml 150 ml Output Total 0 ml 0 ml Balance 50 ml 1320 ml 150 ml medications Current Medications Medications Dose Ordered Sig/Caroline Route Start Time Stop Time Status Last Admin Dose Admin Multivit/Ca Carb/ B Cmplx/FA/Prenat 1 tab DAILY PO 12/10/24 10:00 12/17/24 09:51 1 TAB Atorvastatin Calcium 20 mg HS PO 12/10/24 22:00 12/18/24 21:17 20 MG Aspirin 81 mg DAILY PO 12/10/24 10:00 12/17/24 09:51 81 MG Metoprolol Tartrate 50 mg BID PO 12/10/24 10:00 12/18/24 21:17 50 MG Hydralazine HCl 10 mg Q6HP PRN IV 12/10/24 05:15 12/17/24 12:11 10 MG Diagnostic Test (Pha) 1 strip IQ4HR 12/10/24 08:00 12/18/24 20:07 1 STRIP Insulin Human Regular IQ4HR SC 12/10/24 08:00 12/18/24 17:07 3 UNITS Dextrose 50 ml UD PRN IV 12/10/24 05:15 Sodium Chloride 10 ml Q8HR IV 12/10/24 06:00 12/18/24 21:17 10 ML Ondansetron HCl 4 mg Q4HP PRN IV 12/10/24 05:15 12/18/24 21:24 4 MG Docusate Sodium 100 mg BIDPRN PRN PO 12/10/24 05:15 12/18/24 19:59 100 MG Acetaminophen 650 mg Q6HP PRN PO 12/10/24 05:15 12/13/24 21:29 650 MG Nitroglycerin 0.4 mg Q5MINP PRN SL 12/10/24 05:45 Morphine Sulfate 2 mg Q30M PRN IV 12/10/24 05:45 12/18/24 12:52 2 MG Methocarbamol 750 mg QIDPRN PRN PO 12/10/24 18:45 12/18/24 15:58 750 MG Nifedipine 30 mg DAILY PO 12/12/24 10:00 12/17/24 09:51 30 MG Sevelamer HCl 2,400 mg TIDWM PO 12/12/24 12:00 12/18/24 17:07 2,400 MG Zinc Acetate/ Diphenhydramine 1 applic Q6HP PRN TOP 12/12/24 11:00 12/17/24 21:35 1 APPLIC Vancomycin HCl 0 ml @ 0 mls/hr UD IV 12/12/24 12:00 Ceftriaxone Sodium 50 ml @ 100 mls/hr DAILY@09 IV 12/13/24 09:00 12/17/24 08:30 100 MLS/HR Morphine Sulfate 2 mg Q3HPRN PRN IV 12/15/24 16:15 12/18/24 21:18 2 MG Diphenhydramine HCl 25 mg Q6HP PRN IV 12/15/24 16:15 Lorazepam 1 mg Q8HP PRN PO 12/15/24 16:15 12/18/24 15:56 1 MG Trazodone HCl 50 mg HS PO 12/15/24 22:00 12/18/24 21:16 50 MG Acetaminophen/ Hydrocodone Bitart 1 tab Q4HP PRN PO 12/15/24 16:15 12/18/24 16:00 1 TAB Pantoprazole Sodium 40 mg DAILY IV 12/19/24 10:00 objective Awake alert oriented x3 HEENT: Normocephalic, no JVD Lungs: Bilateral good air entry CVS: S1, S2 regular rate rhythm Abdomen: Soft, bowel sounds present 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 Hyperkalemia Chronic systolic CHF s/p pacemaker DM type II HTN HLD Anemia of CKD Secondary hyperparathyroidism Hyperphosphatemia Assessment/Plan hemodialysis on MWF schedule pain control Arrangements are being made for the patient to be discharged to a senior living facility for physical therapy. Also patient will need arrangements for dialysis locally at [facility]. We will continue with IV antibiotics for six weeks. PT evaluation Dietary Evaluation Review Comments: Encourage and monitor PO feeding, Accommondate his likes/dislikes Expected Outcomes/Goals: maintain wt, Plan discussed with: Patient MAXI LEWIS MD Dec 18, 2024 22:27
[2024-12-19] VITALS (7 sets, daily range): BP systolic 95–180; BP diastolic 58–111; PULSE 65–77; RESP 16–19; TEMP 98.1–99.2; O2SAT 94–98
[2024-12-19] MEDS: SODIUM CHL 0.9% 1000 ML BAG XX ONE (08:12)
[2024-12-19] MEDS: PANTOPRAZOLE 40 MG/10 ML VIAL INJ IV SCH (10:46)
--- NOTE | 2024-12-19 16:49 | DVHDS2 ---
Discharge Summary Date of Admission Dec 10, 2024 at 05:35 Date of Discharge: Dec 19, 2024 Labs/Diagnostic Data: Laboratory Results Test 12/19/24 11:36 12/18/24 06:00 12/17/24 16:18 12/14/24 05:19 POC Glucose 141 mg/dl (70-106) White Blood Count 4.6 10^3/uL (4.4-10.8) Red Blood Count 3.69 10^6/uL (4.5-5.90) Hemoglobin 11.4 g/dL (13.5-17.5) Hematocrit 33.1 % (41.0-53.0) Mean Corpuscular Volume 89.6 fL (80.0-100.0) Mean Corpuscular Hemoglobin 30.8 pg (28.0-32.0) Mean Corpuscular Hemoglobin Concent 34.4 g/dL (32.0-36.0) Red Cell Distribution Width 17.0 % (11.8-14.3) Platelet Count 234 10^3/uL (140-450) Mean Platelet Volume 8.1 fL (6.9-10.8) Neutrophils (%) (Auto) 70.0 % (37.0-80.0) Lymphocytes (%) (Auto) 11.4 % (10.0-50.0) Monocytes (%) (Auto) 13.5 % (0.0-12.0) Eosinophils (%) (Auto) 4.7 % (0.0-7.0) Basophils (%) (Auto) 0.4 % (0.0-2.0) Neutrophils # (Auto) 3.2 10 ^3/uL (1.6-8.6) Lymphocytes # (Auto) 0.5 10 ^3/uL (0.4-5.4) Monocytes # (Auto) 0.6 10 ^3/uL (0-1.3) Eosinophils # (Auto) 0.2 10 ^3/uL (0-0.8) Basophils # (Auto) 0 10 ^3/uL (0-0.2) Nucleated Red Blood Cells 0.0 % Creatinine 10.71 mg/dL (0.700-1.30) Glomerular Filtration Rate Calc 5 mL/min (>90) Random Vancomycin Level 15.9 ug/mL (5-10) Hepatitis B Surface Antigen Negative (Negative) Hepatitis B Surface Antibody Positive (Negative) Hepatitis C Antibody Negative (Negative) Erythrocyte Sedimentation Rate 84 mm/hr (0-20) Sodium Level 132 mmol/L (136-145) Potassium Level 5.4 mmol/L (3.5-5.1) Chloride Level 89 mmol/L (98-107) Carbon Dioxide Level 27 mmol/L (20-31) Anion Gap 16 (5-15) Blood Urea Nitrogen 60 mg/dL (9-23) BUN/Creatinine Ratio 7.1 (10.0-20.0) Serum Glucose 105 mg/dL (74-106) Calcium Level 9.8 mg/dL (8.7-10.4) Total Bilirubin 0.2 mg/dL (0.2-1.0) Aspartate Amino Transferase (AST) 20 U/L (13-40) Alanine Aminotransferase (ALT) 14 U/L (7-40) Alkaline Phosphatase 146 U/L (46-116) C-Reactive Protein High Sensitivity > 20.00 mg/dL (<1.0) Total Protein 7.5 g/dL (5.7-8.2) Albumin 4.3 g/dL (3.2-4.8) Test 12/10/24 05:50 B-Type Natriuretic Peptide 1017.11 pg/mL (0-100) Other Laboratory Tests 12/18/24 06:00 12/14/24 05:19 Brief Hx & Hospital Course: 54-year-old male with a known history of end-stage renal disease on hemodialysis, diabetes mellitus type 2, hypertension, dyslipidemia, status post pacemaker placement, chronic congestive heart failure with systolic dysfunction, coronary artery disease who initially presented to us with low back pain after he started having back pain when he was dragging a weighted a box found to have acute low back pain with L3-4 spinal canal stenosis with a suspected acute diskitis osteomyelitis at L3-4. Patient also has a known end-stage renal disease on hemodialysis. Patient was seen by spine surgery who recommended use IV antibiotics. Patient we will be getting vancomycin 1 g after each dialysis has been as ceftriaxone 2 g after each dialysis for five more weeks. [facility] follow up as an outpatient with the PCP Condition at Discharge: Stable Final Diagnosis/Problems List 54-year-old male with a known history of end-stage renal disease on hemodialysis, diabetes mellitus type 2, hypertension, dyslipidemia, status post pacemaker placement, chronic congestive heart failure with systolic dysfunction, coronary artery disease who initially presented to us with low back pain after he started having back pain when he was dragging a weighted a box found to have 1. Acute low back pain with a L3-4 spinal canal stenosis 2. End-stage renal disease on hemodialysis 3. Acute diskitis osteomyelitis at L3-4 4. Status post pacemaker placement 5. Diabetes mellitus type 2 6. Hypertension 7. Dyslipidemia 8. Anxiety disorder Discharge Disposition: [facility] Facility SNF Discharge Will this Physician continue t: No Discharge Instruct/Medications Diet: Cardiac 2g Na,low cholest Diet comment: 1800 ADA diet Activity: No Restrictions, As Tolerated Follow Up/Referral: f/u with pcp in 1 week f/u [facility] infectious disease specilist Dr radha Lama in 1-2 weeks f/u at dialysis center for IV abx Medications: vanco,ceftrixone Continued Medications: Acetaminophen (Acetaminophen) 325 Mg Tab 650 MG PO Q6HP PRN for 30 Days, #240 TAB Albuterol Sulfate (Albuterol Sulfate) 0.083 % Neb 1 VIAL NEB Q4HPRN PRN for 30 Days, #50 VIAL Atorvastatin Calcium (Atorvastatin Calcium) 40 Mg Tab 1 TAB PO DAILY for 30 Days, #30 TAB 5 Refills Diphenhydramine HCl (Allergy Relief) 25 Mg/10 Ml Liq 25 MG PO BID for 15 Days, #30 LIQ 1 Refill Diphenhydramine-Zinc Acetate (Benadryl Cream) 1 Applic Ap 1 APPLIC TOP Q6HPRN PRN for 30 Days, #120 APPLIC Ergocalciferol (Vitamin D 15182 Unit) 50,[place] [address] UNIT PO Q7D for 30 Days, #10 CAP Folic Acid-Vitamin B6-Vitamin (B Complex/Folic Acid) Tab 1 CAP OR DAILY for 30 Days, #30 TAB Hydralazine HCl (Hydralazine Hydrochloride) 50 Mg Tab 50 MG PO TID for 30 Days, #90 TAB Hydrocodone-Acetaminophen (Hydrocodone Bitartrate/AC 10-325 mg) 1 Tab Tab 1 TAB PO QID, TAB Insulin Glargine (Lantus Solostar) 100 Unit/Ml Inj 100 UNIT SC QPM for 30 Days, #3 INJ 15 units in the evening. Always check your blood glucose before administering insulin, If blood sugar < 60 - have 15-20 g of glucose (8 oz cranberry juice, orange juice, apple juice, small carton of milk) go to the ER/call 911 Insulin Lispro (Insulin Lispro) 100 Unit/Ml Inj 100 UNIT IJ TID for 30 Days, #3 INJ 2-3 units subcutaneous t.i.d.. Always check your blood glucose before administering insulin, If blood sugar < 60 - have 15-20 g of glucose (8 oz cranberry juice, orange juice, apple juice, small carton of milk) go to the ER/call 911 Lorazepam (Ativan Tablet) 0.5 Mg Tb 1 TAB PO TID PRN for ANXIETY, #90 TAB Metoprolol Succinate (Metoprolol Succinate Er) 50 Mg Tab 1 TAB PO DAILY for 30 Days, #30 TAB 5 Refills Nifedipine (Nifedipine Er) 90 Mg Tab 1 TAB PO DAILY for 30 Days, #30 TAB 5 Refills Patients Own Medication (Patients Own Medication) . 1 PATCH TD DAILY PTS OWN MED-OBTAIN FROM PT AND SEND TO RX DRUG: FREQ: RX# EXP: DATE DISP: TECH: RPH: Sevelamer Carbonate (Sevelamer Carbonate) 800 Mg Tab 5 TAB PO TIDWM, TAB Sevelamer Carbonate (Renvela) 800 Mg Tab 3 TAB PO TID for 30 Days, #270 TAB 3 Refills Ticagrelor Base (Brilinta) 60 Mg Tab 60 MG PO BID for 30 Days, #60 TAB Trazodone Hcl (Trazodone Hcl) 150 Mg Tab 150 MG PO for for sleep, MG Trazodone HCl (Trazodone Hydrochloride) 50 Mg Tab 50 MG PO HS for 20 Days, #20 TAB 1 Refill Trazodone Hcl (Trazodone Hcl) 150 Mg Tab 1 TAB PO QPM for 30 Days, #30 TAB 1 Refill Scheduled Atorvastatin Calcium (Atorvastatin Calcium), 1 TAB PO DAILY Diphenhydramine HCl (Allergy Relief), 25 MG PO BID Ergocalciferol (Vitamin D 38847 Unit), 50,000 UNIT PO Q7D Folic Acid-Vitamin B6-Vitamin (B Complex/Folic Acid), 1 CAP OR DAILY Hydralazine HCl (Hydralazine Hydrochloride), 50 MG PO TID Hydrocodone-Acetaminophen (Hydrocodone Bitartrate/AC 10-325 mg), 1 TAB PO QID, (Reported) Insulin Glargine (Lantus Solostar), 100 UNIT SC QPM Insulin Lispro (Insulin Lispro), 100 UNIT IJ TID Metoprolol Succinate (Metoprolol Succinate Er), 1 TAB PO DAILY Nifedipine (Nifedipine Er), 1 TAB PO DAILY Patients Own Medication (Patients Own Medication), 1 PATCH TD DAILY, (Reported) Sevelamer Carbonate (Sevelamer Carbonate), 5 TAB PO TIDWM, (Reported) Sevelamer Carbonate (Renvela), 3 TAB PO TID Ticagrelor Base (Brilinta), 60 MG PO BID Trazodone HCl (Trazodone Hydrochloride), 50 MG PO HS Trazodone Hcl (Trazodone Hcl), 1 TAB PO QPM Scheduled PRN Acetaminophen (Acetaminophen), 650 MG PO Q6HP PRN Albuterol Sulfate (Albuterol Sulfate), 1 VIAL NEB Q4HPRN PRN Diphenhydramine-Zinc Acetate (Benadryl Cream), 1 APPLIC TOP Q6HPRN PRN Lorazepam (Ativan Tablet), 1 TAB PO TID PRN for ANXIETY, (Reported) Miscellaneous Medications Trazodone Hcl (Trazodone Hcl), 150 MG PO, (Reported) Discharge Statement: "Patient was advised to return to the ER or call 911 if any headaches, dizziness, shortness of breath, chest pain, abdominal pain, bleeding, fevers, or worsening of medical condition. Patient was counseled about treatment plan, medications, possible side effects, patientverbalized understanding. All questions were answered to the best of my ability. This discharge took greater then 30 minutes in planning, reviewing documentation, counseling the patient, and discussing with other team members." ASSESSMENT ASSESSMENT Assessment -year-old male with a known history of end-stage renal disease on hemodialysis, diabetes mellitus type 2, hypertension, dyslipidemia, status post pacemaker placement, chronic congestive heart failure with systolic dysfunction, coronary artery disease who initially presented to us with low back pain after he started having back pain when he was dragging a weighted a box found to have 1. Acute low back pain with a L3-4 spinal canal stenosis 2. End-stage renal disease on hemodialysis 3. Acute diskitis osteomyelitis at L3-4 4. Status post pacemaker placement 5. Diabetes mellitus type 2 6. Hypertension 7. Dyslipidemia 8. Anxiety disorder Date of Service: Dec 19, 2024 Billing Provider: ADRIAN ORDONEZ MD Common Visit Codes: 06546-YRG/OBS DISCH DAY >30min ADRIAN ORDONEZ MD Dec 19, 2024 16:49
--- NOTE | 2024-12-19 17:08 | DVHPN2 ---
Progress Note - Dictate Date Seen: Dec 19, 2024 Medical Necessity Reason Pt with a Central, PICC or Fol: No Subjective no acute issues overnight vital signs Vital Sign Date Time Temp Pulse Resp B/P (MAP) Pulse Ox O2 Delivery O2 Flow Rate FiO2 12/19/24 17:01 65 17 156/88 12/19/24 13:00 98.4 94 98.4 12/19/24 08:00 Room Air* 0 21 Total Intake and Output 12/18/24 12/18/24 12/19/24 15:00 23:00 07:00 Intake Total 600 ml 600 ml Balance 600 ml 600 ml medications Current Medications Medications Dose Ordered Sig/Caroline Route Start Time Stop Time Status Last Admin Dose Admin Multivit/Ca Carb/ B Cmplx/FA/Prenat 1 tab DAILY PO 12/10/24 10:00 12/19/24 10:45 1 TAB Atorvastatin Calcium 20 mg HS PO 12/10/24 22:00 12/18/24 21:17 20 MG Aspirin 81 mg DAILY PO 12/10/24 10:00 12/19/24 10:46 81 MG Metoprolol Tartrate 50 mg BID PO 12/10/24 10:00 12/19/24 10:45 50 MG Hydralazine HCl 10 mg Q6HP PRN IV 12/10/24 05:15 12/19/24 06:39 10 MG Diagnostic Test (Pha) 1 strip IQ4HR 12/10/24 08:00 12/19/24 16:00 1 STRIP Insulin Human Regular IQ4HR SC 12/10/24 08:00 12/19/24 13:09 2 UNITS Dextrose 50 ml UD PRN IV 12/10/24 05:15 Sodium Chloride 10 ml Q8HR IV 12/10/24 06:00 12/19/24 14:00 10 ML Ondansetron HCl 4 mg Q4HP PRN IV 12/10/24 05:15 12/19/24 05:57 4 MG Docusate Sodium 100 mg BIDPRN PRN PO 12/10/24 05:15 12/19/24 10:45 100 MG Acetaminophen 650 mg Q6HP PRN PO 12/10/24 05:15 12/13/24 21:29 650 MG Nitroglycerin 0.4 mg Q5MINP PRN SL 12/10/24 05:45 Methocarbamol 750 mg QIDPRN PRN PO 12/10/24 18:45 12/19/24 06:07 750 MG Nifedipine 30 mg DAILY PO 12/12/24 10:00 12/19/24 10:45 30 MG Sevelamer HCl 2,400 mg TIDWM PO 12/12/24 12:00 12/19/24 17:01 2,400 MG Zinc Acetate/ Diphenhydramine 1 applic Q6HP PRN TOP 12/12/24 11:00 12/17/24 21:35 1 APPLIC Vancomycin HCl 0 ml @ 0 mls/hr UD IV 12/12/24 12:00 Ceftriaxone Sodium 50 ml @ 100 mls/hr DAILY@09 IV 12/13/24 09:00 12/19/24 10:45 100 MLS/HR Morphine Sulfate 2 mg Q3HPRN PRN IV 12/15/24 16:15 12/19/24 17:01 2 MG Diphenhydramine HCl 25 mg Q6HP PRN IV 12/15/24 16:15 Lorazepam 1 mg Q8HP PRN PO 12/15/24 16:15 12/18/24 15:56 1 MG Trazodone HCl 50 mg HS PO 12/15/24 22:00 12/18/24 21:16 50 MG Acetaminophen/ Hydrocodone Bitart 1 tab Q4HP PRN PO 12/15/24 16:15 12/18/24 23:21 1 TAB Pantoprazole Sodium 40 mg DAILY IV 12/19/24 10:00 12/19/24 10:46 40 MG objective Awake alert oriented x3 HEENT: Normocephalic, no JVD Lungs: Bilateral good air entry CVS: S1, S2 regular rate rhythm Abdomen: Soft, bowel sounds present [employer]: No focal deficits Extremities: No edema laboratory and microbiology Laboratory Tests 12/18/24 06:00 12/14/24 05:19 Test 12/14/24 05:19 Range/Units Serum Glucose 105 74-106 mg/dL Problem List ESRD on HD Acute lower back pain with the lumbar spine MRI showing evidence of presumed discitis 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 Hyperkalemia Chronic systolic CHF s/p pacemaker DM type II HTN HLD Anemia of CKD Secondary hyperparathyroidism Hyperphosphatemia Assessment/Plan hemodialysis on MWF schedule pain control Arrangements are being made for the patient to be discharged to a senior care facility for physical therapy. Also patient will need arrangements for dialysis locally at [facility]. We will continue with IV antibiotics for six weeks. PT evaluation Dietary Evaluation Review Comments: Encourage and monitor PO feeding, Accommondate his likes/dislikes Expected Outcomes/Goals: maintain wt, MAXI LEWIS MD Dec 19, 2024 17:08
== END 2024-12-19 20:29 | DRG 551 ==
LOC: ER 00:12 → OVERFLOW 05:35 → TELE-EAST 12-11 18:45
PROVIDERS: ADMIT Internal Medicine; ATTEND Internal Medicine
PROC: 5A1D70Z Performance of Urinary Filtration, Intermittent, Less than 6 Hours Per Day (ICD-10-PCS; principal; 2024-12-11)
PROC: 5A1D70Z Performance of Urinary Filtration, Intermittent, Less than 6 Hours Per Day (ICD-10-PCS; 2024-12-13)
PROC: 5A1D70Z Performance of Urinary Filtration, Intermittent, Less than 6 Hours Per Day (ICD-10-PCS; 2024-12-15)
PROC: 5A1D70Z Performance of Urinary Filtration, Intermittent, Less than 6 Hours Per Day (ICD-10-PCS; 2024-12-18)
DX: M48.061 Spinal stenosis, lumbar region without neurogenic claudication (principal); N18.6 End stage renal disease; M46.26 Osteomyelitis of vertebra, lumbar region; I50.22 Chronic systolic (congestive) heart failure; I13.2 Hypertensive heart and chronic kidney disease with heart failure and with stage 5 chronic kidney disease, or end stage renal disease; N25.81 Secondary hyperparathyroidism of renal origin; M46.46 Discitis, unspecified, lumbar region; E11.69 Type 2 diabetes mellitus with other specified complication; E11.65 Type 2 diabetes mellitus with hyperglycemia; E78.5 Hyperlipidemia, unspecified; E83.39 Other disorders of phosphorus metabolism; F41.9 Anxiety disorder, unspecified; F17.210 Nicotine dependence, cigarettes, uncomplicated; E11.22 Type 2 diabetes mellitus with diabetic chronic kidney disease; D63.1 Anemia in chronic kidney disease; E87.5 Hyperkalemia; I25.10 Atherosclerotic heart disease of native coronary artery without angina pectoris; J45.909 Unspecified asthma, uncomplicated; Z88.7 Allergy status to serum and vaccine; Z79.4 Long term (current) use of insulin; Z79.899 Other long term (current) drug therapy; Z99.2 Dependence on renal dialysis; Z95.0 Presence of cardiac pacemaker; Z83.3 Family history of diabetes mellitus; Z82.49 Family history of ischemic heart disease and other diseases of the circulatory system
CPT/HCPCS: 36415; 71045; 72100; 72148; 80048; 80053; 80202; 82565; 82962; 83880; 85025; 85652; 86141; 86706; 86803; 87040; 87077; 87186; 87340; 90935; 93005; 96372; 96374; 97110; 97116; 97163; G0378; J1642; J1815; J2405; J2470

== ENCOUNTER 2025-01-09 17:52 | Inpatient (IN) | payer MEDICARE, MEDICAID ==
[~2025-01-09] VITALS: Ht 172.7 cm; Wt 77.0 kg
--- NOTE | 2025-01-09 18:15 | ED.PDOC ---
Musculoskeletal HPI Comments 54-year-old male with a history of end-stage renal failure on dialysis Wednesday and Saturdays now developed some osteomyelitis in his lower back and has been receiving IV antibiotics at his halfway. Patient is complaining of pain to the right arm diffusely where he receives the IV antibiotics Chief Complaint: Upper Extremity Time Seen by MD: 17:59 Primary Care Provider: NO CURRENT PRIMARY Reviewed Notes: Nurses Notes, Outpatient Interviewing Clerk Notes Allergies: Coded Allergies: Pneumococcal Vaccines (Verified Allergy, Unknown, 07/17/24) Home Meds Active Scripts Trazodone Hcl (Trazodone Hcl) 150 Mg Tab, 1 TAB PO QPM for 30 Days, #30 TAB 1 Refill Prov:BLAIR SAGE RESIDENT 12/05/24 Ticagrelor Base (Brilinta) 60 Mg Tab, 60 MG PO BID for 30 Days, #60 TAB Prov:BLAIR SAGE [facility][NOTE 3] 12/05/24 Sevelamer Carbonate (Renvela) 800 Mg Tab, 3 TAB PO TID for 30 Days, #270 TAB 3 Refills Prov:BLAIR SAGE [facility][NOTE 3] 12/05/24 Nifedipine (Nifedipine Er) 90 Mg Tab, 1 TAB PO DAILY for 30 Days, #30 TAB 5 Refills Prov:BLAIR SAGE [facility][NOTE 3] 12/05/24 Metoprolol Succinate (Metoprolol Succinate Er) 50 Mg Tab, 1 TAB PO DAILY for 30 Days, #30 TAB 5 Refills Prov:BLAIR SAGE [facility][NOTE 3] 12/05/24 Insulin Lispro (Insulin Lispro) 100 Unit/Ml Inj, 100 UNIT IJ TID for 30 Days, #3 INJ 2-3 units subcutaneous t.i.d.. Always check your blood glucose before administering insulin, If blood sugar < 60 - have 15-20 g of glucose (8 oz cranberry juice, orange juice, apple juice, small carton of milk) go to the ER/call 911 Prov:BLAIR SAGE [facility][NOTE 3] 12/05/24 Insulin Glargine (Lantus Solostar) 100 Unit/Ml Inj, 100 UNIT SC QPM for 30 Days, #3 INJ 15 units in the evening. Always check your blood glucose before administering insulin, If blood sugar < 60 - have 15-20 g of glucose (8 oz cranberry juice, orange juice, apple juice, small carton of milk) go to the ER/call 911 Prov:BLAIR SAGE [facility][NOTE 3] 12/05/24 Hydralazine HCl (Hydralazine Hydrochloride) 50 Mg Tab, 50 MG PO TID for 30 Days, #90 TAB Prov:BLAIR SAGE [facility][NOTE 3] 12/05/24 Folic Acid-Vitamin B6-Vitamin (B Complex/Folic Acid) Tab, 1 CAP OR DAILY for 30 Days, #30 TAB Prov:BLAIR SAGE [facility][NOTE 3] 12/05/24 Atorvastatin Calcium (ATORVASTATIN CALCIUM) 40 Mg Tab, 1 TAB PO DAILY for 30 Days, #30 TAB 5 Refills Prov:BLAIR SAGE [facility][NOTE 3] 12/05/24 Albuterol Sulfate (Albuterol Sulfate) 0.083 % Neb, 1 VIAL NEB Q4HPRN PRN for 30 Days, #50 VIAL Prov:BLAIR SAGE [facility][NOTE 3] 12/05/24 Trazodone HCl (Trazodone Hydrochloride) 50 Mg Tab, 50 MG PO HS for 20 Days, #20 TAB 1 Refill Prov:CELSO HARRIS RESDIENT 08/16/24 Diphenhydramine HCl (Allergy Relief) 25 Mg/10 Ml Liq, 25 MG PO BID for 15 Days, #30 LIQ 1 Refill Prov:CELSO HARRIS RESDIENT 08/01/24 Diphenhydramine-Zinc Acetate (Benadryl Cream) 1 Applic Ap, 1 APPLIC TOP Q6HPRN PRN for 30 Days, #120 APPLIC Prov:ALANA CANNON [facility][NOTE 3] 07/30/23 Acetaminophen (Acetaminophen) 325 Mg Tab, 650 MG PO Q6HP PRN for 30 Days, #240 TAB Prov:DANIELMICAHCARLAALANA HARRINGTON [facility][NOTE 3] 07/30/23 Ergocalciferol (VITAMIN D 32099 UNIT) 50,000 [place], [address] UNIT PO Q7D for 30 Days, #10 CAP Prov:FREDDYALANA HARRINGTON [facility][NOTE 3] 07/30/23 Reported Medications Hydrocodone-Acetaminophen (Hydrocodone Bitartrate/AC 10-325 mg) 1 Tab Tab, 1 TAB PO QID, TAB 08/01/24 Lorazepam (ATIVAN TABLET) 0.5 Mg Tb, 1 TAB PO TID PRN for ANXIETY, #90 TAB 10/16/23 Patients Own Medication (PATIENTS OWN MEDICATION) ., 1 PATCH TD DAILY PTS OWN MED-OBTAIN FROM PT AND SEND TO RX DRUG: FREQ: RX# EXP: DATE DISP: TECH: RPH: 10/16/23 Sevelamer Carbonate (Sevelamer Carbonate) 800 Mg Tab, 5 TAB PO TIDWM, TAB 10/16/23 Trazodone Hcl (Trazodone Hcl) 150 Mg Tab, 150 MG PO for for sleep, MG 09/19/23 Information Source: Patient, Emergency Med Personnel Mode of Arrival: EMS Location: Right Extremity Location: Arm Timing: Days Severity: Moderate, Severe Able to Move Extremity: Yes Pain: Moderate, Severe Circumstances: Other (IV line placement and receiving antibiotics) Symptoms: Pain DVT Risk Factors: CHF, Immobilization Associated signs and symptoms: Arm pain Past Medical History PAST MEDICAL HISTORY: Anxiety, Asthma, CAD, CHF, Depression, DM, ESRD, High Lip ids, HTN, SC Surgical History: Pacemaker, PTCA Family History Family History: Reviewed,noncontributory to illness, Family hx of DM, Family hx of heart razia, Family hx of HTN Social History Smoker: Cigarettes Alcohol: Occasionally Drugs: Cocaine Lives In: Home Constitutional: reports: malaise Musculoskeletal: reports: others (Right arm pain) All Other Systems: Reviewed and Negative Physical Exam General Appearance: Moderate Distress HEENT: Normal ENT Inspection, Pharynx Normal, TMs Normal Neck: Full Range of Motion, Non-Tender, Normal, Normal Inspection Respiratory: Chest Non-Tender, Lungs Clear, No Accessory Muscle Use, No Respiratory Distress, Normal Breath Sounds Cardiovascular: No Edema, No JVD, No Murmur, No Gallop, Normal Peripheral Pulses, Regular Rate/Rhythm Breast Exam: Deferred Gastrointestinal: No Organomegaly, Non Tender, No Pulsatile Mass, Normal Bowel Sounds, Soft Genitalia: Deferred Pelvic: Deferred Rectal: Deferred Extremities: Tender (Tender to proximal right arm. AV shunt left arm with good thrill), Other Musculoskeletal : Apperance: Normal Neurologic: Alert, cub reporter II-XII nml as Tested, No Motor Deficits, Normal Affect, Normal Mood, No Sensory Deficits Cerebellar Function: Normal Reflexes: Normal Skin: Dry, Normal Color, Warm Lymphatic: No Adenopathy Was a procedure done? Was a procedure done?: No Differential Diagnosis EXT Differential Diagnosis: Other X-Ray, Labs, Meds, VS Vital Signs Date Time Temp Pulse Resp B/P (MAP) Pulse Ox O2 Delivery O2 Flow Rate FiO2 01/09/25 18:09 98.4 74 18 177/88 96 98.4 Lab Test 01/09/25 18:39 01/09/25 18:34 Range/Units White Blood Count 4.3 L 4.4-10.8 10^3/uL Red Blood Count 3.68 L 4.5-5.90 10^6/uL Hemoglobin 10.9 L 13.5-17.5 g/dL Hematocrit 32.5 L 41.0-53.0 % Mean Corpuscular Volume 88.4 80.0-100.0 fL Mean Corpuscular Hemoglobin 29.5 28.0-32.0 pg Mean Corpuscular Hemoglobin Concent 33.4 32.0-36.0 g/dL Red Cell Distribution Width 16.1 H 11.8-14.3 % Platelet Count 263 140-450 10^3/uL Mean Platelet Volume 8.0 6.9-10.8 fL Neutrophils (%) (Auto) 74.5 37.0-80.0 % Lymphocytes (%) (Auto) 8.3 L 10.0-50.0 % Monocytes (%) (Auto) 11.7 0.0-12.0 % Eosinophils (%) (Auto) 4.6 0.0-7.0 % Basophils (%) (Auto) 0.9 0.0-2.0 % Neutrophils # (Auto) 3.2 1.6-8.6 10 ^3/uL Lymphocytes # (Auto) 0.4 0.4-5.4 10 ^3/uL Monocytes # (Auto) 0.5 0-1.3 10 ^3/uL Eosinophils # (Auto) 0.2 0-0.8 10 ^3/uL Basophils # (Auto) 0 0-0.2 10 ^3/uL Nucleated Red Blood Cells 0.1 % Prothrombin Time 12.5 H 9.3-11.8 sec Prothrombin Time INR 1.20 H 0.9-1.15 Activated Partial Thromboplast Time 33.1 24.5-34.5 SEC Sodium Level 135 L 136-145 mmol/L Potassium Level 4.2 3.5-5.1 mmol/L Chloride Level 95 L 98-107 mmol/L Carbon Dioxide Level 30 20-31 mmol/L Anion Gap 10 5-15 Blood Urea Nitrogen 25 H 9-23 mg/dL Creatinine 5.18 H 0.700-1.30 mg/dL Glomerular Filtration Rate Calc 13 >90 mL/min BUN/Creatinine Ratio 4.8 L 10.0-20.0 Serum Glucose 105 74-106 mg/dL Calcium Level 9.7 8.7-10.4 mg/dL Lactic Acid Level 0.6 0.4-2.0 mmol/L Current Medications Medications (Trade) Dose Ordered Sig/Caroline Route Start Time Stop Time Status Last Admin Oxycodone HCl 10 mg ONCE PRN PO 01/09/25 18:15 01/09/25 18:43 Time of 1ST Reevaluation: 18:14 Reevaluation 1ST: Unchanged Patient Education/Counseling: Diagnosis, Treatment Family Education/Counseling: No Family Present Sepsis Sepsis Reasesment Focused Exam Orders: Laboratory Tests 01/09/25 18:34: Lactic Acid Level 0.6 Recent Procedure: No On Antibiotic Therapy: No Respiratory Rate >20: No Heart Rate >90: No Temp<36 C (96.8 F) or >38.3 C: No SBP <90 or MAP <65 mmHG: No New Acute Mental Status Change: No Is the patient on CPAP, BIPAP,: No IV fluid given: No Departure 1 Departure Time of Disposition: 20:20 Impression: Primary Impression: End-stage renal disease on hemodialysis Additional Impressions: Discitis of lumbar region DVT (deep venous thrombosis) Disposition: ADMITTED INPATIENT Condition: Guarded Discharged With: Self Comments Patient ultrasound results show a DVT in the right internal jugular vein and right arm. I ordered a heparin drip. Patient will need to be admitted for anticoagulation and stabilization. Critical Care Note Critical Care Time?: Yes (35 min-critical care time only) Critical care comment: Total critical care time: Approximately 36 minutes Due to a high probability of clinically significant, life threatening deterioration, the patient required my highest level of preparedness to intervene emergently and I personally spent this critical care time directly and personally managing the patient. This critical care time included obtaining a history; examining the patient; pulse oximetry; ordering and review of studies; arranging urgent treatment with development of a management plan; evaluation of patient's response to treatment; frequent reassessment; and, discussions with other providers. This critical care time was performed to assess and manage the high probability of imminent, life-threatening deterioration that could result in multi-organ failure. It was exclusive of separately billable procedures and treating other patients. Stability Stability form required: No Heart Score Heart Score: Heart Score Response (Comments) Value History N/A 0 EKG N/A 0 Age N/A 0 Risk Factors N/A 0 Troponin N/A 0 Total 0 ALCIRA ANN MD Jan 09, 2025 18:15
[2025-01-09 19:11] LABS: Hematocrit 32.5 % (41.0-53.0); Hemoglobin 10.9 g/dL (13.5-17.5); Mean Corpuscular Hemoglobin 29.5 pg (28.0-32.0); Mean Corpuscular Volume 88.4 fL (80.0-100.0); Nucleated Red Blood Cells % 0.1 %
[2025-01-09 19:22] LABS: Potassium 4.2 mmol/L (3.5-5.1)
[2025-01-09 19:23] LABS: Anion Gap 10 (5-15); Calcium 9.7 mg/dL (8.7-10.4); Carbon Dioxide 30 mmol/L (20-31)
[2025-01-09 19:27] LABS: INR 1.2 (0.9-1.15); Partial Thromboplastin Time 33.1 SEC (24.5-34.5); Prothrombin Time 12.5 sec (9.3-11.8)
[2025-01-09 19:28] LABS: BUN/Creatinine Ratio 4.8 (10.0-20.0); Glucose 105 mg/dL (74-106)
[2025-01-09 19:36] LABS: Blood Urea Nitrogen 25 mg/dL (9-23); Chloride 95 mmol/L (98-107); Sodium 135 mmol/L (136-145)
--- NOTE | 2025-01-09 19:55 | DVH ---
EXAM: US RT UPPER DVT HISTORY: right arm pain s/p IV line COMPARISON: US LT UPPER DVT on DOS: 10/15/23 TECHNIQUE: Duplex Doppler evaluation of the deep venous system of the right upper extremity including color Doppler and spectral/pulsed waveform analysis was performed. FINDINGS: Deep venous thrombosis in the right internal jugular vein, basilic vein, cephalic vein. Remainder of the right upper extremity is patent. IMPRESSION: 1. Deep venous thrombosis in the right internal jugular vein, basilic vein, cephalic vein. 2. If clinical concern/symptoms persist or worsen, short-interval follow-up study is suggested.
--- NOTE | 2025-01-09 21:25 | DVHHPRES ---
History of Present Illness Resident Creating Document: JOSE FITZPATRICK RESIDENT History of Present Illness Mr. Jenkins is a 54 year old male with PMHx of type 2 diabetes mellitus, hypertension, ESRD on dialysis on schedule, DARSHAN, myocardial infarction x 2 GINO, peripheral neuropathy, anxiety, and pacemaker placement 7 years ago, who presented to the ED with chief complaint of right arm pain. He states that 7 days ago after the placement of a peripheral line for IV antibiotics, he began to have progressive onset of pain originating near his right elbow described as pressure like, radiating up and down his arm, with intensity of 10/10, aggravated by movement of his arm and slightly relieved with the use of heating pads. He denies changes in the skin of right arm, swelling, redness, numbness of the right arm or fingers, chest pain or shortness of breath. The patient was recently discharged on 12/19/2024 from this institution with prescription of 5 week course of IV vancomycin and ceftriaxone to be received with dialysis due to Acute Diskitis Osteomyelitis of L3-4, which he is currently receiving at [facility] acute. Due to progressive worsening of pain, the patient sought medical attention at the ED. On evaluation in the ED, vitals were within normal range, slightly hypertensive. Initial labs show normocytic anemia, mild hyponatremia, creatinine 5.18, and BUN 25. Venous Duplex US of the right upper extremity shows DVT in the right internal jugular, basilic vein, and cephalic vein. The patient was started on a heparin drip and IV pain regimen. He was admitted for further work up and monitoring. Cardiovascular: CAD, HTN, VA, hyperipidemia [employer]: Periperal neuropathy Psych: Anxiety Renal/: Other (ESRD) Endocrine: Diabetes Past Surgical History: Other (Fistula formation for dialysis ) Family History: CVA, DM, Hypertension Smoke: <1 pack per day (Smoked 1 cigarette a week for 20 years) ALCOHOL: none (Previous heavy alcohol use, quit 12 years ago) Drugs: Marijuana (Daiily marijuana use for 30 years) Lives: Other (Currently at a SNF ) Domestic Violence: Neg Review of Systems Review of Systems Constitutional: Denies weight loss, fever and chills. HEENT: Denies changes in vision and hearing. Respiratory: Denies shortness of breath and cough Cardiovascular: Denies chest discomfort or palpitations GI: Denies abdominal distention, abdominal pain, diarrhea : Denies dysuria and urinary frequency. Musculoskeletal: Refers intense pain in right arm Skin: Denies rash and pruritus. Neurological: denies dizziness headache vision or hearing problems Allergies: Coded Allergies: Pneumococcal Vaccines (Verified Allergy, Unknown, 07/17/24) Medications Current Medications Medications Dose Ordered Sig/Caroline Route Start Time Stop Time Status Last Admin Dose Admin Oxycodone HCl 10 mg ONCE PRN PO 01/09/25 18:15 01/09/25 18:43 10 MG Heparin Sodium/ Dextrose 250 ml @ 13 mls/hr [id number] IV 01/09/25 20:30 Ergocalciferol 50,000 unit Q7D PO 01/09/25 21:15 UNV Metoprolol Succinate 50 mg DAILY PO 01/10/25 10:00 Atorvastatin Calcium 40 mg HS PO 01/10/25 22:00 Hydralazine HCl 50 mg TID PO 01/09/25 22:00 Nifedipine 90 mg DAILY PO 01/10/25 10:00 Exam Vital Signs Vital Signs Date Time Temp Pulse Resp B/P (MAP) Pulse Ox O2 Delivery O2 Flow Rate FiO2 01/09/25 20:20 98.0 72 18 155/54 (87) 92 98.0 Exam General: The patient alert and oriented in person place and time. Patient following commands HEENT: Normocephalic, atraumatic, normal reactive pupils, EOM intact, pink conjunctiva, pink moist mucous membrane Respiratory/pulmonary: Bilateral chest expansion, no pain on palpation of chest wall, presence of pacemaker in left upper pectoral region, clear lungs bilaterally, vesicular murmurs present in almost all lung leal, no associated crackles or wheezes. Cardiovascular: Normal RRR, normal S1 and S2, no murmurs Abdomen: Abdomen nondistended, normal bowel sounds, soft, there is no pain to palpation in any of the abdominal quadrants, no palpable masses. Extremities: No deformities, there is no peripheral edema present at the lower extremities, normal pulses, there is pain on palpation of right arm near the elbow, no erythema or edema of this area noticed. AV fistula in upper left arm which thrills Skin: Presence of widespread papular rash present on chest, back, arms, and legs Neurological: Intact cranial nerves with no focal neurologic deficits Labs/Xrays Labs Test 01/09/25 18:39 01/09/25 18:34 Range/Units White Blood Count 4.3 L 4.4-10.8 10^3/uL Red Blood Count 3.68 L 4.5-5.90 10^6/uL Hemoglobin 10.9 L 13.5-17.5 g/dL Hematocrit 32.5 L 41.0-53.0 % Mean Corpuscular Volume 88.4 80.0-100.0 fL Mean Corpuscular Hemoglobin 29.5 28.0-32.0 pg Mean Corpuscular Hemoglobin Concent 33.4 32.0-36.0 g/dL Red Cell Distribution Width 16.1 H 11.8-14.3 % Platelet Count 263 140-450 10^3/uL Mean Platelet Volume 8.0 6.9-10.8 fL Neutrophils (%) (Auto) 74.5 37.0-80.0 % Lymphocytes (%) (Auto) 8.3 L 10.0-50.0 % Monocytes (%) (Auto) 11.7 0.0-12.0 % Eosinophils (%) (Auto) 4.6 0.0-7.0 % Basophils (%) (Auto) 0.9 0.0-2.0 % Neutrophils # (Auto) 3.2 1.6-8.6 10 ^3/uL Lymphocytes # (Auto) 0.4 0.4-5.4 10 ^3/uL Monocytes # (Auto) 0.5 0-1.3 10 ^3/uL Eosinophils # (Auto) 0.2 0-0.8 10 ^3/uL Basophils # (Auto) 0 0-0.2 10 ^3/uL Nucleated Red Blood Cells 0.1 % Prothrombin Time 12.5 H 9.3-11.8 sec Prothrombin Time INR 1.20 H 0.9-1.15 Activated Partial Thromboplast Time 33.1 24.5-34.5 SEC Sodium Level 135 L 136-145 mmol/L Potassium Level 4.2 3.5-5.1 mmol/L Chloride Level 95 L 98-107 mmol/L Carbon Dioxide Level 30 20-31 mmol/L Anion Gap 10 5-15 Blood Urea Nitrogen 25 H 9-23 mg/dL Creatinine 5.18 H 0.700-1.30 mg/dL Glomerular Filtration Rate Calc 13 >90 mL/min BUN/Creatinine Ratio 4.8 L 10.0-20.0 Serum Glucose 105 74-106 mg/dL Calcium Level 9.7 8.7-10.4 mg/dL Lactic Acid Level 0.6 0.4-2.0 mmol/L SEPSIS Sepsis Screen Date sepsis recognized/suspect: Jan 09, 2025 Time Sepsis recognized/suspect: 1754 Recent Procedure: No On Antibiotic Therapy: No Respiratory Rate >20: No Heart Rate >90: No Temp<36 C (96.8 F) or >38.3 C: No SBP <90 or MAP <65 mmHG: No New Acute Mental Status Change: No Is the patient on CPAP, BIPAP,: No IV fluid challenge completed?: No Physician Orders Blood Culture (01/09/25 18:06) Rt Upper Dvt (01/09/25 18:06) Oxycodone Immediate Rel Tablet (01/09/25 18:15) Platelet Monitoring (01/09/25 20:17) Vte Protocol Initiated (01/09/25 20:17) Heparin Per Standardized Proce (01/09/25 20:17) Discontinue All Im Injections (01/09/25 20:17) Heparin Drip/D5w 100units/Ml (01/09/25 20:30) Magnesium (01/09/25 20:34) Hemoglobin A1c (01/09/25 20:34) Phosphorus (01/09/25 20:34) Thyroid Stimulating Hormone (01/09/25 20:34) Vitamin D, 25-Hydroxy (01/09/25 20:34) Vitamin B12 (01/09/25 20:34) Complete Blood Count (01/10/25 04:00) Hepatic Panel (01/09/25 20:34) Basic Metabolic Panel (01/10/25 04:00) Admit (01/09/25 21:05) Allergies (01/09/25 21:05) Code Status (01/09/25 21:05) Renal Standard(2gna,3gk,Lopho) (01/10/25 Breakfast) Condition: Stable (01/09/25 21:05) Oxygen By Nasal Cannula (01/09/25 21:05) Stat Ekg For Chest Pain (01/09/25 21:05) Emergency Dysrhythmia Protocol (01/09/25 21:05) Rhythm Strips Once Every Shift (01/09/25 21:05) Notify Md Of Changes From Base (01/09/25 21:05) Ergocalciferol (Vitamin D 50,000 Unit) (01/09/25 21:15) Metoprolol Xl Succinate (Toprol Xl) (01/10/25 10:00) Atorvastatin (Lipitor) (01/10/25 22:00) Hydralazine Hcl Tablet (Apresoline Table (01/09/25 22:00) Nifedipine Er (Procardia Xl (Time-Releas (01/10/25 10:00) Vital Signs Date Time Temp Pulse Resp B/P (MAP) Pulse Ox O2 Delivery O2 Flow Rate FiO2 01/09/25 20:20 98.0 72 18 155/54 (87) 92 98.0 01/09/25 18:09 98.4 74 18 177/88 96 98.4 Laboratory Tests Test 01/09/25 18:34 01/09/25 18:39 Lactic Acid Level 0.6 mmol/L (0.4-2.0) White Blood Count 4.3 10^3/uL (4.4-10.8) L Medications Medications Dose Ordered Sig/Caroline Route Start Time Stop Time Status Last Admin Dose Admin Oxycodone HCl 10 mg ONCE PRN PO 01/09/25 18:15 01/09/25 18:43 10 MG Assessment/Plan Assessment/Plan Assessment and Plan: DVT of Right Internal Jugular Vein, Cephalic Vein, and Basilic vein -Duplex US Upper Extremity: Deep venous thrombosis in the right internal jugular vein, basilic vein, cephalic vein -Heparin Drip -Consider vascular surgery consult/Interventional Radiology -Morphine 1 mg IV once -Oxycodone 10 mg PO once -Heating pads as needed for pain control ESRD on Hemodialysis -Last dialysis was 01/09/2025 -Nephrology consult to Joseline delarosa has been placed -Monitor renal function and electrolytes -Sevelamer 800 mg PO TID -Vitamin D 46610 units PO q7d -Renal diet Type 2 Diabetes Mellitus, HbA1c 6.0% -Mild SSI -Accu-cheks Hypertension -Nifedipine 90 mg PO daily -Hydralazine 50 mg PO TID -Metoprolol succinate 50 mg PO daily Hyperlipidemia -Atorvastatin 40 mg PO HS Normocytic anemia -Monitor H&H Mild Hyponatremia -Monitor sodium levels Coronary artery disease with history of VA -status post PCI with x 2 GINO Ischemic cardiomyopathy status post [employer]-D -Brilinta 60 mg PO BID -Aspirin is currently being held due to the heparin drip -Ordered EKG to evaluate rhythm Marijuana use -I have counseled the patient on the importance of complete marijuana cessation for over 13 minutes Tobacco use -I have counseled the patient on the importance of complete tobacco cessation for 10 minutes Diet: Renal GI prophylaxis: Protonix 40 mg IV daily DVT prophylaxis: Not indicated, patient currently on a heparin drip Case discussed with Dr. Staley Goals of care discussed with the patient for over 26 minutes. FULL CODE. Plan discussed with: Patient, Other (Nurses) My Orders Orders - JOSE FITZPATRICK RESIDENT Procedure Category Date Status Time Magnesium LAB 01/09/25 In Process 20:34 Hemoglobin A1c LAB 01/09/25 In Process 20:34 Phosphorus LAB 01/09/25 In Process 20:34 Thyroid Stimulating LAB 01/09/25 In Process Hormone 20:34 Vitamin D, 25-Hydroxy LAB 01/09/25 In Process 20:34 Vitamin B12 LAB 01/09/25 In Process 20:34 Complete Blood Count LAB 01/10/25 Verified 04:00 Hepatic Panel LAB 01/09/25 In Process 20:34 Basic Metabolic Panel LAB 01/10/25 Verified 04:00 Admit ADMIT 01/09/25 Transmitted 21:05 Allergies JADE 01/09/25 In Process 21:05 Code Status CODE 01/09/25 Transmitted 21:05 Renal DIET 01/10/25 Transmitted Standard(2gna,3gk,Lopho) Breakfast Condition: Stable JADE 01/09/25 In Process 21:05 Oxygen By Nasal RT 01/09/25 Transmitted Cannula 21:05 Stat Ekg For Chest JADE 01/09/25 In Process Pain 21:05 Emergency Dysrhythmia JADE 01/09/25 In Process Protocol 21:05 Rhythm Strips Once JADE 01/09/25 In Process Every Shift 21:05 Notify Of Changes JADE 01/09/25 In Process From Base 21:05 Ergocalciferol PHA 01/09/25 Logged (Vitamin D 50,000 21:15 Metoprolol Xl PHA 01/10/25 In Process Succinate (Toprol Xl) 10:00 Atorvastatin (Lipitor) PHA 01/10/25 In Process 22:00 Hydralazine Hcl PHA 01/09/25 In Process Tablet (Apresoline 22:00 Nifedipine Er PHA 01/10/25 In Process (Procardia Xl 10:00 Date of Service: Jan 09, 2025 Billing Provider: MILA STALEY MD Common Visit Codes: [id number] INP/OBS CARE (HIGH) Secondary Visit Codes: [id number] CARE PLAN 30 MINUTES JOSE FITZPATRICK RESIDENT Jan 09, 2025 21:24 ALANA CANNON RESIDENT Jan 10, 2025 01:55
[2025-01-09] MEDS ORDERED: DEXTROSE (50%) 50ML SYRG IV PRN (21:30)
[2025-01-09 21:33] LABS: Albumin 4.1 g/dL (3.2-4.8); Bilirubin, Direct 0.1 mg/dL (<0.3); Magnesium 2.3 mg/dL (1.6-2.6); Total Protein 7.8 g/dL (5.7-8.2)
[2025-01-09 21:34] LABS: Alanine Aminotransferase < 9 U/L (7-40); Alkaline Phosphatase 119 U/L (46-116); Bilirubin, Total 0.2 mg/dL (0.2-1.0)
[2025-01-09] MEDS: ACCU-CHEK COMFORT CURVE STRIP VI SCH (22:00)
[2025-01-09] MEDS: InsuLIN REG 1unit/0.01ml Soln (100units/ml) SC SCH (22:00)
[2025-01-09] MEDS: TICAGRELOR 60 MG TAB PO SCH (22:00)
[2025-01-09 22:15] VITALS: PULSE 75; RESP 11; O2SAT 96
[2025-01-09] MEDS: PANTOPRAZOLE 40 MG/10 ML VIAL INJ IV ONE (22:42)
[2025-01-09] MEDS: MORPHINE SULFATE INJ 2 MG/ml SYRG IV ONE (22:43)
[2025-01-09] MEDS: HEPARIN SODIUM (PORCINE) 5000 UNITS/ML 1ML VIAL IV ONE (23:08)
[2025-01-09] MEDS: HEPARIN DRIP/D5W 100UNITS/ML 250 ML IV SCH (23:11)
--- NOTE | 2025-01-09 23:55 | DVH ---
CHEST RADIOGRAPH Indication: SOB Technique: Single frontal view of the chest was obtained Comparison: XY CHEST XRAY 1 VIEW on DOS: 12/16/24, XY CHEST XRAY 1 VIEW on DOS: 12/01/24, XY CHEST PORT ABLE on DOS: 08/14/24, XY CHEST XRAY 1 VIEW on DOS: 07/30/24, XY CHEST PORTABLE on DOS: 07/16/24 FINDINGS/IMPRESSION: There is prominence of the interstitial markings. Unchanged enlarged cardiomedi astinal silhouette. Left-sided biventricular ICD. No pleural effusion or pneumothorax. No acute oss eous abnormality.
[2025-01-10] VITALS (10 sets, daily range): BP systolic 112–188; BP diastolic 59–101; PULSE 68–79; RESP 16–20; TEMP 97.2–98.1; O2SAT 97–100
[2025-01-10] MEDS: LORazepam 0.5 MG TAB PO ONE (01:31)
[2025-01-10] MEDS: LIDOCAINE 5% TOPICAL PATCH TOP ONE (03:27)
--- NOTE | 2025-01-10 03:57 | ECG ---
[facility] Test Date: 2025-01-10 Test Time: 03:56:46 Pat Name: CODY SUAREZ Department: Room: 0296 B Gender: M [employer] Mixer: [id number] : 1970 Requested By: ALANA CANNON Order Number: [id number] Reading MD: Santy Fernandes Measurements Intervals [place] Rate: 68 P: 63 AL: 156 QRS: -11 QRSD: 87 T: 146 QT: 418 QTc: 445 Interpretive Statements Sinus rhythm Abnormal T, consider ischemia, lateral leads Electronically Signed On 01-16-2025 21:34:35 PDT by Santy Fernandes Please click the below link to view image of tracing.
[2025-01-10 05:36] LABS: Anion Gap 12 (5-15); Carbon Dioxide 27 mmol/L (20-31); Potassium 4.5 mmol/L (3.5-5.1); Sodium 136 mmol/L (136-145)
[2025-01-10 05:37] LABS: Calcium 9.8 mg/dL (8.7-10.4)
[2025-01-10 05:39] LABS: Chloride 97 mmol/L (98-107); Hematocrit 29.1 % (41.0-53.0); Hemoglobin 10.0 g/dL (13.5-17.5); Mean Corpuscular Hemoglobin 30.4 pg (28.0-32.0); Mean Corpuscular Volume 88.5 fL (80.0-100.0); Nucleated Red Blood Cells % 0.2 %
[2025-01-10 05:42] LABS: BUN/Creatinine Ratio 4.7 (10.0-20.0)
[2025-01-10 05:44] LABS: Blood Urea Nitrogen 30 mg/dL (9-23); Glucose 110 mg/dL (74-106)
[2025-01-10 05:45] LABS: INR 1.28 (0.9-1.15); Prothrombin Time 13.2 sec (9.3-11.8)
[2025-01-10 05:52] LABS: Partial Thromboplastin Time 89.1 SEC (24.5-34.5)
[2025-01-10] MEDS: HEPARIN DRIP/D5W 100UNITS/ML 250 ML IV SCH (06:14)
[2025-01-10] MEDS: METOPROLOL SUCCINATE XL 50 MG TAB PO SCH (08:13)
[2025-01-10] MEDS: PANTOPRAZOLE 40 MG/10 ML VIAL INJ IV SCH (08:14)
[2025-01-10] MEDS: SEVELAMER 800 MG TAB PO SCH ×2 (08:14→17:22)
[2025-01-10] MEDS: ERGOCALCIFEROL 50,000 UNIT(1.25MG) CAP PO SCH (09:07)
[2025-01-10] MEDS: HYDROcodone-ACET 10/325MG TAB PO SCH (09:09)
[2025-01-10] MEDS: diphenhdrAMINE-ZINC ACETATE 1 APPLIC APPL TOP PRN (11:16)
[2025-01-10] MEDS: ENOXAPARIN SOD 100 MG/1 ML SYRINGE SC ONE (13:51)
[2025-01-10] MEDS: POLYETHYLENE GLYCOL 17 GM PWDR PO ONE (13:51)
[2025-01-10] MEDS ORDERED: ACETAMINOPHEN 325 MG TAB PO PRN (14:15)
[2025-01-10] MEDS ORDERED: VANCOMYCIN PER PHARMACY 0 MG IV SCH (14:45)
[2025-01-10] MEDS ORDERED: VANCOMYCIN 1GM/250ML KIT 250 ML IV ONE ×3 (16:15→18:00)
--- NOTE | 2025-01-10 17:10 | DVHPNRES ---
Progress Note Date Seen: Jan 10, 2025 Resident Creating Document: REBA PRICE RESIDENT Medical Necessity Reason Pt with a Central, PICC or Fol: No Subjective Review of Systems History of Present Illness Mr. Jenkins is a 54 year old male with PMHx of type 1 diabetes mellitus, hypertension, ESRD on dialysis on schedule who produces no urine, DARSHAN, myocardial infarction x 2 GINO, peripheral neuropathy, anxiety, and pacemaker placement 7 years ago, who presented to the ED with chief complaint of right arm pain. He states that 7 days ago after the placement of a peripheral line for IV antibiotics, he began to have progressive onset of pain originating near his right elbow described as pressure like, radiating up and down his arm, with intensity of 10/10, aggravated by movement of his arm and slightly relieved with the use of heating pads. He denies changes in the skin of right arm, swelling, redness, numbness of the right arm or fingers, chest pain or shortness of breath. The patient was recently discharged on 12/19/2024 from this institution with prescription of 5 week course of IV vancomycin and ceftriaxone to be received with dialysis due to Acute Diskitis Osteomyelitis of L3-4, which he is currently receiving at [facility]. Due to progressive worsening of pain, the patient sought medical attention at the ED. Past medical history:CAD, HTN, MD, hyperlipidemia, Periperal neuropathy, anxiety, diabetes mellitus type 1, end-stage renal disease on dialysis Past Surgical History: Other (Fistula formation for dialysis ) Family History: CVA, DM, Hypertension Smoke: <1 pack per day (Smoked 1 cigarette a week for 20 years) ALCOHOL: none (Previous heavy alcohol use, quit 12 years ago) Drugs: Marijuana (Daily marijuana use for 30 years) Lives: Other (Currently at a SNF ) Domestic Violence: Neg 01/10/2025: Today the patient was seen and examined by me at the bedside. Patient complains that he still has a lot of back pain which he rates 10/ 10 due to his osteomyelitis. He also complains of pain in his right arm and heat pack was given. We stopped his heparin drip and are giving him Lovenox 70 mg once daily instead of twice daily subcutaneously his creatinine clearance is low. Patient will undergo hemodialysis tomorrow. We are continuing his IV medication for osteomyelitis which is vancomycin and ceftriaxone intravenouss. Patient also complains of constipation and MiraLAX 17 g was given to him. Objective vital signs Vital Sign Date Time Temp Pulse Resp B/P (MAP) Pulse Ox O2 Delivery O2 Flow Rate FiO2 01/10/25 16:40 98.1 69 16 128/78 (95) 97 98.1 01/10/25 08:00 Room Air* 0 21 Total Intake and Output 01/09/25 01/09/25 01/10/25 15:00 23:00 07:00 Intake Total 250 ml Balance 250 ml medications Current Medications Medications Dose Ordered Sig/Caroline Route Start Time Stop Time Status Last Admin Dose Admin Oxycodone HCl 10 mg ONCE PRN PO 01/09/25 18:15 01/09/25 18:43 10 MG Ergocalciferol 50,000 unit Q7D PO 01/10/25 10:00 01/10/25 09:07 50,000 UNIT Metoprolol Succinate 50 mg DAILY PO 01/10/25 10:00 01/10/25 08:13 50 MG Atorvastatin Calcium 40 mg HS PO 01/10/25 22:00 Hydralazine HCl 50 mg TID PO 01/09/25 22:00 01/10/25 13:52 50 MG Nifedipine 90 mg DAILY PO 01/10/25 10:00 01/10/25 08:14 90 MG Diagnostic Test (Pha) 1 strip ACHS 01/09/25 22:00 01/10/25 06:37 1 STRIP Insulin Human Regular ACHS SC 01/09/25 22:00 Dextrose 50 ml UD PRN IV 01/09/25 21:30 Pantoprazole Sodium 40 mg DAILY IV 01/10/25 10:00 01/10/25 08:14 40 MG Zinc Acetate/ Diphenhydramine 1 applic Q6HPRN PRN TOP 01/10/25 01:00 01/10/25 11:16 1 APPLIC Acetaminophen/ Hydrocodone Bitart 1 tab QID PO 01/10/25 09:00 01/10/25 12:14 1 TAB Morphine Sulfate 1 mg Q4HP PRN IV 01/10/25 11:45 Lorazepam 0.5 mg TID PRN PO 01/10/25 11:45 Ticagrelor 60 mg BID PO 01/10/25 22:00 Enoxaparin Sodium 70 mg DAILY SC 01/11/25 10:00 UNV Acetaminophen 650 mg Q6HP PRN PO 01/10/25 14:15 Patient Own Medication 3 tab TID PO 01/10/25 22:00 UNV Enoxaparin Sodium 70 mg DAILY SC 01/11/25 10:00 Sevelamer HCl 2,400 mg TIDWM PO 01/10/25 18:00 Vancomycin HCl 0 ml @ 0 mls/hr UD IV 01/10/25 14:45 Ceftriaxone Sodium/Dextrose 50 ml @ 100 mls/hr DAILY IV 01/10/25 16:30 Multivit/Ca Carb/ B Cmplx/FA/Prenat 1 tab DAILY PO 01/11/25 10:00 Examination General: The patient alert and oriented in person place and time. Patient following commands HEENT: Normocephalic, atraumatic, normal reactive pupils, EOM intact, pink conjunctiva, pink moist mucous membrane Respiratory/pulmonary: Bilateral chest expansion, no pain on palpation of chest wall, presence of pacemaker in left upper pectoral region, clear lungs bilaterally, vesicular murmurs present in almost all lung leal, no associated crackles or wheezes. Cardiovascular: Normal RRR, normal S1 and S2, no murmurs Abdomen: Abdomen nondistended, normal bowel sounds, soft, there is no pain to palpation in any of the abdominal quadrants, no palpable masses. Extremities: No deformities, there is no peripheral edema present at the lower extremities, normal pulses, there is pain on palpation of right arm near the elbow, no erythema or edema of this area noticed. AV fistula in upper left arm which thrills Skin: Presence of widespread papular rash present on chest, back, arms, and legs; presence of 3x 3 cm lump in the mid back, soft, movable Neurological: Intact cranial nerves with no focal neurologic deficits laboratory and microbiology Laboratory Tests 01/10/25 05:10 Test 01/10/25 05:10 Range/Units Serum Glucose 110 H 74-106 mg/dL Microbiology Date/Time Source Procedure Growth Status 01/10/25 03:30 Nose MRSA Screen - Final Complete Labs and/or images reviewed: Labs reviewed by me, Image(s) reviewed by me Problem List/Assessment/Plan Problem List/Assessment/Plan #DVT of Right Internal Jugular Vein, Cephalic Vein, and Basilic vein -Duplex US Upper Extremity: Deep venous thrombosis in the right internal jugular vein, basilic vein, cephalic vein -initially heparin drip was given on admission, stopped on day 1 and Lovenox 70 mg once daily instead of twice daily subcutaneous given patient is creatinine clearance is low -Morphine 1 mg to 4 PRN -[place] 10/325 mg p.o. q.i.d. -Heating pads as needed for pain control #ESRD on Hemodialysis -Last dialysis was 01/09/2025 -Nephrology consult to Joseline group has been placed -Monitor renal function and electrolytes -Sevelamer 800 mg PO TID -Vitamin D 13075 units PO q7d -Renal diet # Acute Diskitis Osteomyelitis of L3-4 -continue vancomycin 1 g and ceftriaxone 2 g IV daily #Type 2 Diabetes Mellitus, HbA1c 6.0% -Mild SSI -Accu-cheks #Hypertension -Nifedipine 90 mg PO daily -Hydralazine 50 mg PO TID -Metoprolol succinate 50 mg PO daily #Hyperlipidemia -Atorvastatin 40 mg PO HS #Normocytic anemia -Monitor H&H #Mild Hyponatremia -Monitor sodium levels #Coronary artery disease with history of MD -status post PCI with x 2 GINO Ischemic cardiomyopathy status post [employer]-D -Brilinta 60 mg PO BID -Aspirin is currently being held due to the heparin drip -Ordered EKG to evaluate rhythm #Marijuana use patient counseled regarding side effects, harms of taking drug and regarding cessation #Tobacco use patient counseled regarding side effects, harms of smoking and regarding cessation # history of anxiety disorder Continue lorazepam 0.5 mg p.o. t.i.d. PRN Diet: Renal GI prophylaxis: Protonix 40 mg IV daily DVT prophylaxis: Lovenox 70 mg subcutaneous daily Case discussed with Dr. Rodriguez Goals of care discussed with the patient for over 26 minutes. FULL CODE. Plan discussed with: Patient, Other (rn) My Orders My Orders Orders - REBA PRICE Procedure Category Date Status Time Morphine Sulfate PHA 01/10/25 In Process Injection 11:45 Lorazepam Tablet PHA 01/10/25 In Process (Ativan Tablet) 11:45 Ticagrelor (Brilinta) PHA 01/10/25 In Process 22:00 Date of Service: Jan 10, 2025 Billing Provider: LAURITA RODRIGUEZ MD Common Visit Codes: [id number] INP/OBS CARE(HIGH) REBA PRICE Jan 10, 2025 17:10 LAURITA RODRIGUEZ MD Jan 17, 2025 22:41
[2025-01-10] MEDS: B-COMPLEX W/ C & FOLIC ACID(NEPHROVITE TAB) PO ONE (17:21)
[2025-01-10] MEDS: MORPHINE SULFATE INJ 2 MG/ml SYRG IV PRN (17:21)
--- NOTE | 2025-01-10 17:23 | DVHINCON2 ---
Date of service: Jan 10, [address] Odonnell. Reason for Consultation End-stage renal disease management History of Present Illness 54-year-old patient with significant history of the diabetes type 2, end-stage renal disease on dialysis TTS, hypertension, CHF, CAD status post stents, peripheral neuropathy, chronic pain syndrome, pacemaker in place, diskitis of the bicarb presents to the hospital with complains of right arm pain 7/10 associated with movement. Patient states he had a peripheral line for IV antibiotics where he was receiving Rocephin and the pain started the elbow radiated to the I arm with no fever chills or recent trauma. Patient is currently receiving Rocephin daily along with vancomycin with dialysis at post acute care for diskitis L3-L4. Laboratory data and imaging studies revealed DVT in the ranging IJ, basilic vein and cephalic vein. Past Medical History End-stage renal disease, hypertension, CHF, CAD Past Surgical History Av fistula creation, pacemaker placement Allergies: Coded Allergies: Pneumococcal Vaccines (Verified Allergy, Unknown, 07/17/24) Home Meds Active Scripts Trazodone Hcl (Trazodone Hcl) 150 Mg Tab, 1 TAB PO QPM for 30 Days, #30 TAB 1 Refill Prov:[facility] 12/05/24 Ticagrelor Base (Brilinta) 60 Mg Tab, 60 MG PO BID for 30 Days, #60 TAB Prov:BLAIR [facility] 12/05/24 Sevelamer Carbonate (Renvela) 800 Mg Tab, 3 TAB PO TID for 30 Days, #270 TAB 3 Refills Prov:[facility] 12/05/24 Nifedipine (Nifedipine Er) 90 Mg Tab, 1 TAB PO DAILY for 30 Days, #30 TAB 5 Refills Prov:[facility] 12/05/24 Metoprolol Succinate (Metoprolol Succinate Er) 50 Mg Tab, 1 TAB PO DAILY for 30 Days, #30 TAB 5 Refills Prov:[facility]IR [facility] 12/05/24 Insulin Lispro (Insulin Lispro) 100 Unit/Ml Inj, 100 UNIT IJ TID for 30 Days, #3 INJ 2-3 units subcutaneous t.i.d.. Always check your blood glucose before administering insulin, If blood sugar < 60 - have 15-20 g of glucose (8 oz cranberry juice, orange juice, apple juice, small carton of milk) go to the ER/call 911 Prov:[facility] 12/05/24 Insulin Glargine (Lantus Solostar) 100 Unit/Ml Inj, 100 UNIT SC QPM for 30 Days, #3 INJ 15 units in the evening. Always check your blood glucose before administering insulin, If blood sugar < 60 - have 15-20 g of glucose (8 oz cranberry juice, orange juice, apple juice, small carton of milk) go to the ER/call 911 Prov:[facility] 12/05/24 Hydralazine HCl (Hydralazine Hydrochloride) 50 Mg Tab, 50 MG PO TID for 30 Days, #90 TAB Prov:[facility] 12/05/24 Folic Acid-Vitamin B6-Vitamin (B Complex/Folic Acid) Tab, 1 CAP OR DAILY for 30 Days, #30 TAB Prov:[facility] 12/05/24 Atorvastatin Calcium (ATORVASTATIN CALCIUM) 40 Mg Tab, 1 TAB PO DAILY for 30 Days, #30 TAB 5 Refills Prov:[facility] 12/05/24 Albuterol Sulfate (Albuterol Sulfate) 0.083 % Neb, 1 VIAL NEB Q4HPRN PRN for 30 Days, #50 VIAL Prov:[facility] 12/05/24 Trazodone HCl (Trazodone Hydrochloride) 50 Mg Tab, 50 MG PO HS for 20 Days, #20 TAB 1 Refill Prov:CELSO HARRIS RESDIENT 08/16/24 Diphenhydramine HCl (Allergy Relief) 25 Mg/10 Ml Liq, 25 MG PO BID for 15 Days, #30 LIQ 1 Refill Prov:CELSO HARRIS RESDIENT 25 Diphenhydramine-Zinc Acetate (Benadryl Cream) 1 Applic Ap, 1 APPLIC TOP Q6HPRN PRN for 30 Days, #120 APPLIC Prov:ALANA CANNON RESIDENT 07/30/23 Acetaminophen (Acetaminophen) 325 Mg Tab, 650 MG PO Q6HP PRN for 30 Days, #240 TAB Prov:ALANA CANNON RESIDENT 07/30/23 Ergocalciferol (VITAMIN D 45656 UNIT) 50,000 [place], [address] UNIT PO Q7D for 30 Days, #10 CAP Prov:ALANA CANNON RESIDENT 07/30/23 Reported Medications Hydrocodone-Acetaminophen (Hydrocodone Bitartrate/AC 10-325 mg) 1 Tab Tab, 1 TAB PO QID, TAB 08/01/24 Lorazepam (ATIVAN TABLET) 0.5 Mg Tb, 1 TAB PO TID PRN for ANXIETY, #90 TAB 10/16/23 Patients Own Medication (PATIENTS OWN MEDICATION) ., 1 PATCH TD DAILY PTS OWN MED-OBTAIN FROM PT AND SEND TO RX DRUG: FREQ: RX# EXP: DATE DISP: TECH: RPH: 10/16/23 Sevelamer Carbonate (Sevelamer Carbonate) 800 Mg Tab, 5 TAB PO TIDWM, TAB 10/16/23 Trazodone Hcl (Trazodone Hcl) 150 Mg Tab, 150 MG PO for for sleep, MG 09/19/23 Current Medications Current Medications Medications (Trade) Dose Ordered Sig/Caroline Route PRN Reason Start Time Stop Time Status Last Admin Oxycodone HCl 10 mg ONCE PRN PO MODERATE PAIN (4-6 PAIN SCALE) 01/09/25 18:15 01/09/25 18:43 Heparin Sodium/ Dextrose 250 ml @ 13 mls/hr [id number] IV 01/09/25 20:30 01/10/25 05:59 DC 01/09/25 23:11 Ergocalciferol (Vitamin D 50,000 Unit) 50,000 unit Q7D PO 01/10/25 10:00 01/10/25 09:07 Metoprolol Succinate (Toprol Xl) 50 mg DAILY PO 01/10/25 10:00 01/10/25 08:13 Atorvastatin Calcium (Lipitor) 40 mg HS PO 01/10/25 22:00 Hydralazine HCl (Apresoline Tablet) 50 mg TID PO 01/09/25 22:00 01/10/25 13:52 Nifedipine (Procardia Xl (Time-Release)) 90 mg DAILY PO 01/10/25 10:00 01/10/25 08:14 Ticagrelor (Brilinta) 60 mg BID PO 01/09/25 22:00 01/10/25 12:21 DC 01/10/25 11:54 Diagnostic Test (Pha) (Accu-Chek Comfort Curve T) 1 strip ACHS 01/09/25 22:00 01/10/25 06:37 Insulin Human Regular (InsuLIN R) ACHS SC 01/09/25 22:00 Dextrose 50 ml UD PRN IV Blood Sugar LESS THAN 60 01/09/25 21:30 Pantoprazole Sodium (Protonix) 40 mg DAILY IV 01/10/25 10:00 01/10/25 08:14 Sevelamer HCl (Renagel) 800 mg TIDWM PO 01/10/25 08:00 01/10/25 16:07 DC 01/10/25 12:14 Zinc Acetate/ Diphenhydramine (Benadryl Cream) 1 applic Q6HPRN PRN TOP FOR ITCHING 01/10/25 01:00 01/10/25 11:16 Heparin Sodium/ Dextrose 250 ml @ 11 mls/hr [id number] IV 01/10/25 06:00 01/10/25 11:36 DC 01/10/25 06:14 Acetaminophen/ Hydrocodone Bitart ([place] 10/325MG Tab) 1 tab QID PO 01/10/25 09:00 01/10/25 12:14 Enoxaparin Sodium (Lovenox) 70 mg DAILY SC 01/11/25 10:00 01/10/25 12:26 DC Morphine Sulfate 1 mg Q4HP PRN IV SEVERE PAIN (7-10 PAIN SCALE) 01/10/25 11:45 Lorazepam (Ativan Tablet) 0.5 mg TID PRN PO ANXIETY 01/10/25 11:45 Ticagrelor (Brilinta) 60 mg BID PO 01/10/25 22:00 Enoxaparin Sodium (Lovenox) 70 mg DAILY SC 01/11/25 10:00 UNV Enoxaparin Sodium (Lovenox) 70 mg DAILY SC 01/11/25 10:00 01/10/25 14:18 DC Acetaminophen (Tylenol Tablet) 650 mg Q6HP PRN PO PAIN 01/10/25 14:15 Patient Own Medication 3 tab TID PO 01/10/25 22:00 UNV Enoxaparin Sodium (Lovenox) 70 mg DAILY SC 01/11/25 10:00 Sevelamer HCl (Renagel) 2,400 mg TIDWM PO 01/10/25 18:00 Ceftriaxone Sodium/Dextrose 50 ml @ 100 mls/hr DAILY@POSTDI IV 01/10/25 14:31 01/10/25 16:28 DC Vancomycin HCl 0 ml @ 0 mls/hr UD IV 01/10/25 14:45 Ceftriaxone Sodium/Dextrose 50 ml @ 100 mls/hr DAILY IV 01/10/25 16:30 Multivit/Ca Carb/ B Cmplx/FA/Prenat (Nephro-Evan Tablet) 1 tab DAILY PO 01/11/25 10:00 Family History: Arthritis G8 MOTHER Diabetes mellitus G8 MOTHER G8 SISTER Hypertension G8 MOTHER G8 FATHER Social History He denies smoking alcohol or drug abuse Review of Systems HEENT: Oral mucosa dry Neck no JVD Cardiovascular: Denies for chest pain denies orthopnea or PND Respiratory: Denies cough or shortness of breath Gastrointestinal: Denies for nausea vomiting Musculoskeletal: Pain right arm Neurological: Denies focal weakness Dermatological: Denies any rash The rest of the review of systems were reviewed pertinent positives and pert inent negatives are as per HPI up to 12 points review of systems H&P Exam Vital Signs/I&O Vital Sign Date Time Temp Pulse Resp B/P (MAP) Pulse Ox O2 Delivery O2 Flow Rate FiO2 01/10/25 16:40 98.1 69 16 128/78 (95) 97 98.1 01/10/25 08:00 Room Air* 0 21 Intake and Output 01/09/25 01/10/25 19:00 07:00 Intake Total 250 ml Balance 250 ml Intake Oral 250 ml Physical Exam HEENT: No evidence of JVD, no oral ulcers. Pulmonary: Lungs are clear on auscultation bilaterally Cardiovascular S1-S2, no S3 or S4 Abdomen: Bowel sounds positive, soft no rebound tenderness Skin: No rash Neurological: Alert, oriented, no focal weakness Pacemaker left upper chest, dialysis access uncomplicated Labs/Diagnostic Data Labs/Diagnostic Data Laboratory Tests Test 01/10/25 11:24 01/10/25 06:31 01/10/25 05:10 01/09/25 22:34 Range/Units POC Glucose 128 H 91 129 H 70-106 mg/dl White Blood Count 4.2 L 4.4-10.8 10^3/uL Red Blood Count 3.29 L 4.5-5.90 10^6/uL Hemoglobin 10.0 L 13.5-17.5 g/dL Hematocrit 29.1 #L 41.0-53.0 % Mean Corpuscular Volume 88.5 80.0-100.0 fL Mean Corpuscular Hemoglobin 30.4 28.0-32.0 pg Mean Corpuscular Hemoglobin Concent 34.3 32.0-36.0 g/dL Red Cell Distribution Width 16.4 H 11.8-14.3 % Platelet Count 258 140-450 10^3/uL Mean Platelet Volume 8.3 6.9-10.8 fL Neutrophils (%) (Auto) 66.7 37.0-80.0 % Lymphocytes (%) (Auto) 13.6 10.0-50.0 % Monocytes (%) (Auto) 13.2 H 0.0-12.0 % Eosinophils (%) (Auto) 6.2 0.0-7.0 % Basophils (%) (Auto) 0.3 0.0-2.0 % Neutrophils # (Auto) 2.8 1.6-8.6 10 ^3/uL Lymphocytes # (Auto) 0.6 0.4-5.4 10 ^3/uL Monocytes # (Auto) 0.6 0-1.3 10 ^3/uL Eosinophils # (Auto) 0.3 0-0.8 10 ^3/uL Basophils # (Auto) 0 0-0.2 10 ^3/uL Nucleated Red Blood Cells 0.2 % Prothrombin Time 13.2 H 9.3-11.8 sec Prothrombin Time INR 1.28 H 0.9-1.15 Activated Partial Thromboplast Time 89.1 *H 24.5-34.5 SEC Sodium Level 136 136-145 mmol/L Potassium Level 4.5 3.5-5.1 mmol/L Chloride Level 97 L 98-107 mmol/L Carbon Dioxide Level 27 20-31 mmol/L Anion Gap 12 5-15 Blood Urea Nitrogen 30 H 9-23 mg/dL Creatinine 6.45 H 0.700-1.30 mg/dL Glomerular Filtration Rate Calc 10 >90 mL/min BUN/Creatinine Ratio 4.7 L 10.0-20.0 Serum Glucose 110 H 74-106 mg/dL Calcium Level 9.8 8.7-10.4 mg/dL Test 01/09/25 18:39 01/09/25 18:34 Range/Units White Blood Count 4.3 L 4.4-10.8 10^3/uL Red Blood Count 3.68 L 4.5-5.90 10^6/uL Hemoglobin 10.9 L 13.5-17.5 g/dL Hematocrit 32.5 L 41.0-53.0 % Mean Corpuscular Volume 88.4 80.0-100.0 fL Mean Corpuscular Hemoglobin 29.5 28.0-32.0 pg Mean Corpuscular Hemoglobin Concent 33.4 32.0-36.0 g/dL Red Cell Distribution Width 16.1 H 11.8-14.3 % Platelet Count 263 140-450 10^3/uL Mean Platelet Volume 8.0 6.9-10.8 fL Neutrophils (%) (Auto) 74.5 37.0-80.0 % Lymphocytes (%) (Auto) 8.3 L 10.0-50.0 % Monocytes (%) (Auto) 11.7 0.0-12.0 % Eosinophils (%) (Auto) 4.6 0.0-7.0 % Basophils (%) (Auto) 0.9 0.0-2.0 % Neutrophils # (Auto) 3.2 1.6-8.6 10 ^3/uL Lymphocytes # (Auto) 0.4 0.4-5.4 10 ^3/uL Monocytes # (Auto) 0.5 0-1.3 10 ^3/uL Eosinophils # (Auto) 0.2 0-0.8 10 ^3/uL Basophils # (Auto) 0 0-0.2 10 ^3/uL Nucleated Red Blood Cells 0.1 % Prothrombin Time 12.5 H 9.3-11.8 sec Prothrombin Time INR 1.20 H 0.9-1.15 Activated Partial Thromboplast Time 33.1 24.5-34.5 SEC Sodium Level 135 L 136-145 mmol/L Potassium Level 4.2 3.5-5.1 mmol/L Chloride Level 95 L 98-107 mmol/L Carbon Dioxide Level 30 20-31 mmol/L Anion Gap 10 5-15 Blood Urea Nitrogen 25 H 9-23 mg/dL Creatinine 5.18 H 0.700-1.30 mg/dL Glomerular Filtration Rate Calc 13 >90 mL/min BUN/Creatinine Ratio 4.8 L 10.0-20.0 Serum Glucose 105 74-106 mg/dL Hemoglobin A1c 6.0 H <5.7 % A1C Calcium Level 9.7 8.7-10.4 mg/dL Phosphorus Level 4.8 2.4-5.1 mg/dL Magnesium Level 2.3 1.6-2.6 mg/dL Total Bilirubin 0.2 0.2-1.0 mg/dL Direct Bilirubin 0.1 <0.3 mg/dL Aspartate Amino Transferase (AST) 16 13-40 U/L Alanine Aminotransferase (ALT) < 9 7-40 U/L Alkaline Phosphatase 119 H 46-116 U/L Total Protein 7.8 5.7-8.2 g/dL Albumin 4.1 3.2-4.8 g/dL Vitamin B12 Level 352 211-911 pg/mL Vitamin D 25-Hydroxy 34.8 30.0-100 ng/mL Thyroid Stimulating Hormone (TSH) 1.07 0.55-4.78 uIU/mL Lactic Acid Level 0.6 0.4-2.0 mmol/L Microbiology Date/Time Source Procedure Growth Status 01/10/25 03:30 Nose MRSA Screen - Final Complete Ultrasound Doppler shows right-sided IJ DVT Assessment Assessment: 1. End-stage renal disease on dialysis TTS 2. Acute DVT of right IJ cephalic and basilic vein 3. Hyperkalemia managed with dialysis 4. Fluid overload managed with dialysis 5. CHF 6. Anemia of end-stage renal disease 7. Secondary hyperparathyroidism 8. Diskitis of the lumbosacral spine Plan: Hemodialysis TTS, we will aim for 3-4 L UF Resume antihypertensive med Continue IV antibiotics Rocephin and vancomycin Patient is on anticoagulation currently as primary team Continue phosphate binders, low phosphorus diet Javed for goal hemoglobin 10-11 Thank you very much for allowing us to participate in the care of this patient please contact if you have any questions. Plan discussed with: Patient SURINDER RUANO MD Jan 10, 2025 17:23
[2025-01-10] MEDS ORDERED: PATIENTS OWN MEDICATION (Sevelamer Carbonate (Renvela) 3 TAB) PO SCH (22:00)
[2025-01-10] MEDS: ATORVASTATIN 20 MG TAB PO SCH (23:10)
[2025-01-10] MEDS: TICAGRELOR 60 MG TAB PO SCH (23:10)
[2025-01-11] VITALS (8 sets, daily range): BP systolic 92–171; BP diastolic 52–99; PULSE 68–102; RESP 17–20; TEMP 97.7–98.9; O2SAT 93–99
[2025-01-11 06:45] LABS: Hematocrit 31.0 % (41.0-53.0); Hemoglobin 10.8 g/dL (13.5-17.5); Mean Corpuscular Hemoglobin 30.3 pg (28.0-32.0); Mean Corpuscular Volume 87.2 fL (80.0-100.0); Nucleated Red Blood Cells % 0.1 %
[2025-01-11 07:07] LABS: Calcium 10.1 mg/dL (8.7-10.4)
[2025-01-11 07:08] LABS: Anion Gap 17 (5-15); Carbon Dioxide 26 mmol/L (20-31)
[2025-01-11 07:14] LABS: BUN/Creatinine Ratio 5.6 (10.0-20.0); Blood Urea Nitrogen 48 mg/dL (9-23); Chloride 93 mmol/L (98-107); Glucose 78 mg/dL (74-106); Potassium 5.1 mmol/L (3.5-5.1); Sodium 136 mmol/L (136-145)
[2025-01-11 07:15] LABS: Iron 39.0 ug/dL (65-175)
[2025-01-11 07:18] LABS: Total Iron Binding Capacity 164.0 ug/dL (250-425)
[2025-01-11] MEDS ORDERED: ENOXAPARIN SOD 100 MG/1 ML SYRINGE SC SCH ×3 (10:00)
[2025-01-11] MEDS: ENOXAPARIN SOD 80 MG/0.8ML SYRINGE SC SCH (10:20)
[2025-01-11] MEDS: B-COMPLEX W/ C & FOLIC ACID(NEPHROVITE TAB) PO SCH (10:20)
--- NOTE | 2025-01-11 12:38 | DVHPNRES ---
Progress Note Date Seen: Jan 11, 2025 Resident Creating Document: REBA PRICE RESIDENT Medical Necessity Reason Pt with a Central, PICC or Fol: No Subjective Review of Systems Mr. Jenkins is a 54 year old male with PMHx of type 1 diabetes mellitus, hypertension, ESRD on dialysis on schedule who produces no urine, DARSHAN, myocardial infarction x 2 GINO, peripheral neuropathy, anxiety, and pacemaker placement 7 years ago, who presented to the ED with chief complaint of right arm pain. He states that 7 days ago after the placement of a peripheral line for IV antibiotics, he began to have progressive onset of pain originating near his right elbow described as pressure like, radiating up and down his arm, with intensity of 10/10, aggravated by movement of his arm and slightly relieved with the use of heating pads. He denies changes in the skin of right arm, swelling, redness, numbness of the right arm or fingers, chest pain or shortness of breath. The patient was recently discharged on 12/19/2024 from this institution with prescription of 5 week course of IV vancomycin and ceftriaxone to be received with dialysis due to Acute Diskitis Osteomyelitis of L3-4, which he is currently receiving at [facility] acute. Due to progressive worsening of pain, the patient sought medical attention at the ED. Past medical history:CAD, HTN, KS, hyperlipidemia, Periperal neuropathy, anxiety, diabetes mellitus type 1, end-stage renal disease on dialysis Past Surgical History: Other (Fistula formation for dialysis ) Family History: CVA, DM, Hypertension Smoke: <1 pack per day (Smoked 1 cigarette a week for 20 years) ALCOHOL: none (Previous heavy alcohol use, quit 12 years ago) Drugs: Marijuana (Daily marijuana use for 30 years) Lives: Other (Currently at a SNF ) Domestic Violence: Neg 01/10/2025: Today the patient was seen and examined by me at the bedside. Patient complains that he still has a lot of back pain which he rates 10/ 10 due to his osteomyelitis. He also complains of pain in his right arm and heat pack was given. We stopped his heparin drip and are giving him Lovenox 70 mg once daily instead of twice daily subcutaneously his creatinine clearance is low. Patient will undergo hemodialysis tomorrow. We are continuing his IV medication for osteomyelitis which is vancomycin and ceftriaxone intravenouss. Patient also complains of constipation and MiraLAX 17 g was given to him. 01/11/25:Today the patient was seen and examined by me at the bedside. Patient is no new active complaints except for pain in the right shoulder for which heat pack was applied. Objective vital signs Vital Sign Date Time Temp Pulse Resp B/P (MAP) Pulse Ox O2 Delivery O2 Flow Rate FiO2 01/11/25 10:21 92 19 173/86 01/11/25 09:14 98.8 98 98.8 01/11/25 08:00 Nasal Cannula* 2 28 Total Intake and Output 01/10/25 01/10/25 01/11/25 15:00 23:00 07:00 Intake Total 200 ml 0 ml Balance 200 ml 0 ml medications Current Medications Medications Dose Ordered Sig/Caroline Route Start Time Stop Time Status Last Admin Dose Admin Oxycodone HCl 10 mg ONCE PRN PO 01/09/25 18:15 01/09/25 18:43 10 MG Ergocalciferol 50,000 unit Q7D PO 01/10/25 10:00 01/10/25 09:07 50,000 UNIT Metoprolol Succinate 50 mg DAILY PO 01/10/25 10:00 01/10/25 08:13 50 MG Atorvastatin Calcium 40 mg HS PO 01/10/25 22:00 01/10/25 23:10 40 MG Hydralazine HCl 50 mg TID PO 01/09/25 22:00 01/11/25 05:41 50 MG Nifedipine 90 mg DAILY PO 01/10/25 10:00 01/10/25 08:14 90 MG Diagnostic Test (Pha) 1 strip ACHS 01/09/25 22:00 01/11/25 06:10 1 STRIP Insulin Human Regular ACHS SC 01/09/25 22:00 Dextrose 50 ml UD PRN IV 01/09/25 21:30 Pantoprazole Sodium 40 mg DAILY IV 01/10/25 10:00 01/11/25 10:19 40 MG Zinc Acetate/ Diphenhydramine 1 applic Q6HPRN PRN TOP 01/10/25 01:00 01/10/25 23:15 1 APPLIC Acetaminophen/ Hydrocodone Bitart 1 tab QID PO 01/10/25 09:00 01/11/25 05:42 1 TAB Morphine Sulfate 1 mg Q4HP PRN IV 01/10/25 11:45 01/11/25 10:21 1 MG Lorazepam 0.5 mg TID PRN PO 01/10/25 11:45 Ticagrelor 60 mg BID PO 01/10/25 22:00 01/10/25 23:10 60 MG Enoxaparin Sodium 70 mg DAILY SC 01/11/25 10:00 UNV Acetaminophen 650 mg Q6HP PRN PO 01/10/25 14:15 Patient Own Medication 3 tab TID PO 01/10/25 22:00 UNV Enoxaparin Sodium 70 mg DAILY SC 01/11/25 10:00 01/11/25 10:20 70 MG Sevelamer HCl 2,400 mg TIDWM PO 01/10/25 18:00 01/11/25 08:28 2,400 MG Vancomycin HCl 0 ml @ 0 mls/hr UD IV 01/10/25 14:45 Ceftriaxone Sodium/Dextrose 50 ml @ 100 mls/hr DAILY IV 01/10/25 16:30 01/11/25 10:20 100 MLS/HR Multivit/Ca Carb/ B Cmplx/FA/Prenat 1 tab DAILY PO 01/11/25 10:00 01/11/25 10:20 1 TAB Examination General: The patient alert and oriented in person place and time. Patient following commands HEENT: Normocephalic, atraumatic, normal reactive pupils, EOM intact, pink conjunctiva, pink moist mucous membrane Respiratory/pulmonary: Bilateral chest expansion, no pain on palpation of chest wall, presence of pacemaker in left upper pectoral region, clear lungs bilaterally, vesicular murmurs present in almost all lung leal, no associated crackles or wheezes. Cardiovascular: Normal RRR, normal S1 and S2, no murmurs Abdomen: Abdomen nondistended, normal bowel sounds, soft, there is no pain to palpation in any of the abdominal quadrants, no palpable masses. Extremities: No deformities, there is no peripheral edema present at the lower extremities, normal pulses, there is pain on palpation of right arm near the elbow, no erythema or edema of this area noticed. AV fistula in upper left arm which thrills Skin: Presence of widespread papular rash present on chest, back, arms, and legs; presence of 3x 3 cm lump in the mid back, soft, movable Neurological: Intact cranial nerves with no focal neurologic deficits laboratory and microbiology Laboratory Tests 01/11/25 05:40 Test 01/11/25 05:40 Range/Units Serum Glucose 78 74-106 mg/dL Microbiology Date/Time Source Procedure Growth Status 01/10/25 03:30 Nose MRSA Screen - Final Complete 01/09/25 18:38 Blood Blood Culture - Preliminary NO GROWTH AFTER 24 HOURS OF INCUBATION. Resulted Labs and/or images reviewed: Labs reviewed by me, Image(s) reviewed by me Problem List/Assessment/Plan Problem List/Assessment/Plan #DVT of Right Internal Jugular Vein, Cephalic Vein, and Basilic vein -Duplex US Upper Extremity: Deep venous thrombosis in the right internal jugular vein, basilic vein, cephalic vein -initially heparin drip was given on admission, stopped on day 1 and Lovenox 70 mg once daily instead of twice daily subcutaneous given patient is creatinine clearance is low -Morphine 1 mg to 4 PRN -[place] 10/325 mg p.o. q.i.d. -Heating pads as needed for pain control #ESRD on Hemodialysis -Last dialysis was 01/09/2025 -Nephrology on board, today 01/11 done with dialysis a total of 3700 output -Monitor renal function and electrolytes -Sevelamer 800 mg PO TID -Vitamin D 91826 units PO q7d -Renal diet # Acute Diskitis Osteomyelitis of L3-4 -continue vancomycin 1 g and ceftriaxone 2 g IV daily #Type 2 Diabetes Mellitus, HbA1c 6.0% -Mild SSI -Accu-cheks #Hypertension -Nifedipine 90 mg PO daily -Hydralazine 50 mg PO TID -Metoprolol succinate 50 mg PO daily #Hyperlipidemia -Atorvastatin 40 mg PO HS #Normocytic anemia -Monitor H&H #Mild Hyponatremia -Monitor sodium levels #Coronary artery disease with history of KS -status post PCI with x 2 GINO Ischemic cardiomyopathy status post [employer]-D -Brilinta 60 mg PO BID -Aspirin is currently being held due to the heparin drip -Ordered EKG to evaluate rhythm #Marijuana use patient counseled regarding side effects, harms of taking drug and regarding cessation #Tobacco use patient counseled regarding side effects, harms of smoking and regarding cessation # history of anxiety disorder Continue lorazepam 0.5 mg p.o. t.i.d. PRN Diet: Renal GI prophylaxis: Protonix 40 mg IV daily DVT prophylaxis: Lovenox 70 mg subcutaneous daily Case discussed with Dr. Rodriguez Goals of care discussed with the patient for over 26 minutes. FULL CODE. Plan discussed with: Patient, Other (rn) Date of Service: Jan 11, 2025 Billing Provider: LAURITA RODRIGUEZ MD Common Visit Codes: [id number] INP/OBS CARE(HIGH) REBA PRICE RESIDENT Jan 11, 2025 12:38 LAURITA RODRIGUEZ MD Jan 17, 2025 22:47
[2025-01-11] MEDS: SODIUM CHL 0.9% 1000 ML BAG XX ONE (13:43)
--- NOTE | 2025-01-11 15:25 | DVHPN2 ---
Progress Note - Dictate Date Seen: Jan 11, 2025 Medical Necessity Reason Pt with a Central, PICC or Fol: No Subjective Patient is feeling better overall vital signs Vital Sign Date Time Temp Pulse Resp B/P (MAP) Pulse Ox O2 Delivery O2 Flow Rate FiO2 01/11/25 13:00 98.9 82 19 152/68 (96) 99 98.9 01/11/25 08:00 Nasal Cannula* 2 28 Total Intake and Output 01/10/25 01/10/25 01/11/25 15:00 23:00 07:00 Intake Total 200 ml 0 ml Balance 200 ml 0 ml medications Current Medications Medications Dose Ordered Sig/Caroline Route Start Time Stop Time Status Last Admin Dose Admin Oxycodone HCl 10 mg ONCE PRN PO 01/09/25 18:15 01/09/25 18:43 10 MG Ergocalciferol 50,000 unit Q7D PO 01/10/25 10:00 01/10/25 09:07 50,000 UNIT Metoprolol Succinate 50 mg DAILY PO 01/10/25 10:00 01/10/25 08:13 50 MG Atorvastatin Calcium 40 mg HS PO 01/10/25 22:00 01/10/25 23:10 40 MG Hydralazine HCl 50 mg TID PO 01/09/25 22:00 01/11/25 05:41 50 MG Nifedipine 90 mg DAILY PO 01/10/25 10:00 01/10/25 08:14 90 MG Diagnostic Test (Pha) 1 strip ACHS 01/09/25 22:00 01/11/25 13:36 1 STRIP Insulin Human Regular ACHS SC 01/09/25 22:00 Dextrose 50 ml UD PRN IV 01/09/25 21:30 Pantoprazole Sodium 40 mg DAILY IV 01/10/25 10:00 01/11/25 10:19 40 MG Zinc Acetate/ Diphenhydramine 1 applic Q6HPRN PRN TOP 01/10/25 01:00 01/10/25 23:15 1 APPLIC Acetaminophen/ Hydrocodone Bitart 1 tab QID PO 01/10/25 09:00 01/11/25 05:42 1 TAB Morphine Sulfate 1 mg Q4HP PRN IV 01/10/25 11:45 01/11/25 10:21 1 MG Lorazepam 0.5 mg TID PRN PO 01/10/25 11:45 Ticagrelor 60 mg BID PO 01/10/25 22:00 01/10/25 23:10 60 MG Enoxaparin Sodium 70 mg DAILY SC 01/11/25 10:00 UNV Acetaminophen 650 mg Q6HP PRN PO 01/10/25 14:15 Patient Own Medication 3 tab TID PO 01/10/25 22:00 UNV Enoxaparin Sodium 70 mg DAILY SC 01/11/25 10:00 01/11/25 10:20 70 MG Sevelamer HCl 2,400 mg TIDWM PO 01/10/25 18:00 01/11/25 08:28 2,400 MG Vancomycin HCl 0 ml @ 0 mls/hr UD IV 01/10/25 14:45 Ceftriaxone Sodium/Dextrose 50 ml @ 100 mls/hr DAILY IV 01/10/25 16:30 01/11/25 10:20 100 MLS/HR Multivit/Ca Carb/ B Cmplx/FA/Prenat 1 tab DAILY PO 01/11/25 10:00 01/11/25 10:20 1 TAB objective HEENT: No evidence of JVD, no oral ulcers. Pulmonary: Lungs are clear on auscultation bilaterally Cardiovascular S1-S2, no S3 or S4 Abdomen: Bowel sounds positive, soft no rebound tenderness Skin: No rash Neurological: Alert, oriented, no focal weakness laboratory and microbiology Laboratory Tests 01/11/25 05:40 Test 01/11/25 05:40 Range/Units Serum Glucose 78 74-106 mg/dL Assessment/Plan Assessment: 1. End-stage renal disease on dialysis TTS 2. Acute DVT of right IJ cephalic and basilic vein 3. Hyperkalemia managed with dialysis 4. Fluid overload managed with dialysis 5. CHF 6. Anemia of end-stage renal disease 7. Secondary hyperparathyroidism 8. Diskitis of the lumbosacral spine Plan and recommendations Hemodialysis TTS, we will aim for 3-4 L UF Resume antihypertensive med Continue IV antibiotics Rocephin and vancomycin Patient is on anticoagulation currently as primary team Continue phosphate binders, low phosphorus diet Javed for goal hemoglobin 10-11 Stable from Nephrology perspective Thank you very much for allowing us to participate in the care of this patient please contact if you have any questions. Plan discussed with: Patient SURINDER RUANO MD Jan 11, 2025 15:25
[2025-01-11] MEDS ORDERED: VANCOMYCIN 1GM/250ML KIT 250 ML IV ONE (18:00)
[2025-01-11] MEDS: LACTULOSE 20Gm/30ML SOLN PO SCH (21:15)
[2025-01-12] VITALS (9 sets, daily range): BP systolic 133–189; BP diastolic 46–85; PULSE 58–84; RESP 16–20; TEMP 96.3–98.9; O2SAT 91–99
[2025-01-12] MEDS: LORazepam 0.5 MG TAB PO PRN (04:44)
[2025-01-12 07:02] LABS: Hematocrit 30.8 % (41.0-53.0); Hemoglobin 10.2 g/dL (13.5-17.5); Mean Corpuscular Hemoglobin 29.3 pg (28.0-32.0); Mean Corpuscular Volume 88.2 fL (80.0-100.0); Nucleated Red Blood Cells % 0.0 %
[2025-01-12 07:07] LABS: Anion Gap 13 (5-15); Calcium 9.7 mg/dL (8.7-10.4); Carbon Dioxide 30 mmol/L (20-31); Potassium 4.3 mmol/L (3.5-5.1); Sodium 136 mmol/L (136-145)
[2025-01-12 07:13] LABS: BUN/Creatinine Ratio 5.7 (10.0-20.0); Blood Urea Nitrogen 39 mg/dL (9-23); Chloride 93 mmol/L (98-107); Glucose 99 mg/dL (74-106)
[2025-01-12] MEDS ORDERED: LACTULOSE 20Gm/30ML SOLN PO ONE (09:45)
[2025-01-12] MEDS: LACTULOSE 20Gm/30ML SOLN PO ONE (10:36)
--- NOTE | 2025-01-12 13:17 | DVHDSRES ---
Discharge Summary Date of Admission Resident Creating Document: REBA PRICE RESIDENT Jan 09, 2025 at 21:05 Date of Discharge: Jan 12, 2025 Admitting Diagnosis Possible DVT of right arm Labs/Diagnostic Data: Laboratory Results Test 01/12/25 06:13 01/12/25 05:13 01/11/25 05:40 01/10/25 05:10 White Blood Count 4.7 10^3/uL (4.4-10.8) Red Blood Count 3.49 10^6/uL (4.5-5.90) Hemoglobin 10.2 g/dL (13.5-17.5) Hematocrit 30.8 % (41.0-53.0) Mean Corpuscular Volume 88.2 fL (80.0-100.0) Mean Corpuscular Hemoglobin 29.3 pg (28.0-32.0) Mean Corpuscular Hemoglobin Concent 33.2 g/dL (32.0-36.0) Red Cell Distribution Width 16.1 % (11.8-14.3) Platelet Count 226 10^3/uL (140-450) Mean Platelet Volume 8.5 fL (6.9-10.8) Neutrophils (%) (Auto) 72.7 % (37.0-80.0) Lymphocytes (%) (Auto) 9.9 % (10.0-50.0) Monocytes (%) (Auto) 12.5 % (0.0-12.0) Eosinophils (%) (Auto) 4.2 % (0.0-7.0) Basophils (%) (Auto) 0.7 % (0.0-2.0) Neutrophils # (Auto) 3.4 10 ^3/uL (1.6-8.6) Lymphocytes # (Auto) 0.5 10 ^3/uL (0.4-5.4) Monocytes # (Auto) 0.6 10 ^3/uL (0-1.3) Eosinophils # (Auto) 0.2 10 ^3/uL (0-0.8) Basophils # (Auto) 0 10 ^3/uL (0-0.2) Nucleated Red Blood Cells 0.0 % Sodium Level 136 mmol/L (136-145) Potassium Level 4.3 mmol/L (3.5-5.1) Chloride Level 93 mmol/L (98-107) Carbon Dioxide Level 30 mmol/L (20-31) Anion Gap 13 (5-15) Blood Urea Nitrogen 39 mg/dL (9-23) Creatinine 6.80 mg/dL (0.700-1.30) Glomerular Filtration Rate Calc 9 mL/min (>90) BUN/Creatinine Ratio 5.7 (10.0-20.0) Serum Glucose 99 mg/dL (74-106) Calcium Level 9.7 mg/dL (8.7-10.4) Random Vancomycin Level 20.6 ug/mL (5-10) POC Glucose 113 mg/dl (70-106) Iron Level 39 ug/dL (65-175) Total Iron Binding Capacity 164 ug/dL (250-425) Percent Iron Saturation 23.8 % (20-55) Ferritin 562.8 ng/mL (22-322) Prothrombin Time 13.2 sec (9.3-11.8) Prothrombin Time INR 1.28 (0.9-1.15) Activated Partial Thromboplast Time 89.1 SEC (24.5-34.5) Test 01/09/25 18:39 01/09/25 18:34 Hemoglobin A1c 6.0 % A1C (<5.7) Phosphorus Level 4.8 mg/dL (2.4-5.1) Magnesium Level 2.3 mg/dL (1.6-2.6) Total Bilirubin 0.2 mg/dL (0.2-1.0) Direct Bilirubin 0.1 mg/dL (<0.3) Aspartate Amino Transferase (AST) 16 U/L (13-40) Alanine Aminotransferase (ALT) < 9 U/L (7-40) Alkaline Phosphatase 119 U/L (46-116) Total Protein 7.8 g/dL (5.7-8.2) Albumin 4.1 g/dL (3.2-4.8) Vitamin B12 Level 352 pg/mL (211-911) Vitamin D 25-Hydroxy 34.8 ng/mL (30.0-100) Thyroid Stimulating Hormone (TSH) 1.07 uIU/mL (0.55-4.78) Lactic Acid Level 0.6 mmol/L (0.4-2.0) Other Laboratory Tests 01/12/25 06:13 Brief Hx & Hospital Course: Mr. Jenkins is a 54 year old male with PMHx of type 1 diabetes mellitus, hypertension, ESRD on dialysis on schedule who produces no urine, DARSHAN, myocardial infarction x 2 GINO, peripheral neuropathy, anxiety, and pacemaker placement 7 years ago, who presented to the ED with chief complaint of right arm pain. He states that 7 days ago after the placement of a peripheral line for IV antibiotics, he began to have progressive onset of pain originating near his right elbow described as pressure like, radiating up and down his arm, with intensity of 10/10, aggravated by movement of his arm and slightly relieved with the use of heating pads. He denies changes in the skin of right arm, swelling, redness, numbness of the right arm or fingers, chest pain or shortness of breath. The patient was recently discharged on 12/19/2024 from this institution with prescription of 5 week course of IV vancomycin and ceftriaxone to be received with dialysis due to Acute Diskitis Osteomyelitis of L3-4, which he is currently receiving at [facility]. Due to progressive worsening of pain, the patient sought medical attention at the ED. Past medical history:CAD, HTN, NM, hyperlipidemia, Periperal neuropathy, anxiety, diabetes mellitus type 1, end-stage renal disease on dialysis Past Surgical History: Other (Fistula formation for dialysis ) Family History: CVA, DM, Hypertension Smoke: <1 pack per day (Smoked 1 cigarette a week for 20 years) ALCOHOL: none (Previous heavy alcohol use, quit 12 years ago) Drugs: Marijuana (Daily marijuana use for 30 years) Lives: Other (Currently at a SNF ) Domestic Violence: Neg Brief history of hospitalization Patient came in with pain in his right arm and duplex ultrasound of the upper extremity showed deep vein thrombosis in the right internal jugular vein, basilic vein, cephalic vein. Initially heparin drip was given on admission which was stopped and Lovenox 70 mg was continued. Given the patient's end- stage renal disease and low creatine clearance we gave Lovenox only once a day. Patient has been [place] and morphine we will given for pain control and heating pads were given as needed. Patient has ESRD on hemodialysis and he was dialysis on 1024. Nephrology was on board and we continue to monitor patient's renal function and electrolytes. We continued vitamin-D supplements and sevelamer 800 mg p.o. t.i.d. and kept the patient on a renal diet. We continued patient's antibiotics for acute diskitis osteomyelitis of L3-L4 with vancomycin 1 g and ceftriaxone 2 g IV daily. For diabetes mellitus, we continued mild SSI. For hypertension nifedipine and hydralazine were given daily and metoprolol succinate 50 mg was also continued. For hyperlipidemia atorvastatin was given. For patient's coronary artery disease with history of NM status post PCI and stenting Brilinta nd spirin and for marijuana use we have counseled him regarding side effects of marijuana and regarding cessation. Patient also has anxiety disorder and lorazepam was continued. During hospitalization patient complained of constipation and we gave him MiraLAX which did not work and we gave him lactulose as well as tap water enema which relieved his constipation. Now the patient is stable for discharge and we have counseled him regarding continued need for dialysis and antibiotics for his osteomyelitis. He has agreed with the discharge plan and is to follow up with his primary care physician, discharge clinic in 2 weeks. General: The patient alert and oriented in person place and time. Patient following commands HEENT: Normocephalic, atraumatic, normal reactive pupils, EOM intact, pink conjunctiva, pink moist mucous membrane Respiratory/pulmonary: Bilateral chest expansion, no pain on palpation of chest wall, presence of pacemaker in left upper pectoral region, clear lungs bilaterally, vesicular murmurs present in almost all lung leal, no associated crackles or wheezes. Cardiovascular: Normal RRR, normal S1 and S2, no murmurs Abdomen: Abdomen nondistended, normal bowel sounds, soft, there is no pain to palpation in any of the abdominal quadrants, no palpable masses. Extremities: No deformities, there is no peripheral edema present at the lower extremities, normal pulses, there is pain on palpation of right arm near the elbow, no erythema or edema of this area noticed. AV fistula in upper left arm which thrills Skin: Presence of widespread papular rash present on chest, back, arms, and legs; presence of 3x 3 cm lump in the mid back, soft, movable Neurological: Intact cranial nerves with no focal neurologic deficits Operations or Procedures EXAM: US RT UPPER DVT HISTORY: right arm pain s/p IV line IMPRESSION: 1. Deep venous thrombosis in the right internal jugular vein, basilic vein, cephalic vein. 2. If clinical concern/symptoms persist or worsen, short-interval follow-up study is suggested. CHEST RADIOGRAPH Indication: SOB FINDINGS/IMPRESSION: There is prominence of the interstitial markings. Unchanged enlarged cardiomediastinal silhouette. Left-sided biventricular ICD. No pleural effusion or pneumothorax. No acute osseous abnormality. Condition at Discharge: Stable Final Diagnosis/Problems List #DVT of Right Internal Jugular Vein, Cephalic Vein, and Basilic vein #ESRD on Hemodialysis TTS #Hyperkalemia managed with dialysis #Fluid overload managed with dialysis #Secondary hyperparathyroidism # Acute Diskitis Osteomyelitis of L3-4 #Type 2 Diabetes Mellitus, HbA1c 6.0% #Hypertension #Hyperlipidemia #Anemia of end-stage renal disease #Mild Hyponatremia #Coronary artery disease with history of NM -status post PCI with x 2 GINO #Ischemic cardiomyopathy status post [employer] LEADER-D #Marijuana use #Tobacco use # history of anxiety disorder Discharge Disposition: Home Discharge Instruct/Medications Scheduled Apixaban Base (Eliquis), 5 MG PO BID Atorvastatin Calcium (Atorvastatin Calcium), 1 TAB PO DAILY Diphenhydramine HCl (Allergy Relief), 25 MG PO BID Ergocalciferol (Vitamin D 46828 Unit), 50,000 UNIT PO Q7D Folic Acid-Vitamin B6-Vitamin (B Complex/Folic Acid), 1 CAP OR DAILY Hydralazine HCl (Hydralazine Hydrochloride), 50 MG PO TID Hydrocodone-Acetaminophen (Hydrocodone Bitartrate/AC 10-325 mg), 1 TAB PO QID, (Reported) Insulin Glargine (Lantus Solostar), 100 UNIT SC QPM Insulin Lispro (Insulin Lispro), 100 UNIT IJ TID Metoprolol Succinate (Metoprolol Succinate Er), 1 TAB PO DAILY Nifedipine (Nifedipine Er), 1 TAB PO DAILY Patients Own Medication (Patients Own Medication), 1 PATCH TD DAILY, (Reported) Sevelamer Carbonate (Sevelamer Carbonate), 5 TAB PO TIDWM, (Reported) Sevelamer Carbonate (Renvela), 3 TAB PO TID Ticagrelor Base (Brilinta), 60 MG PO BID Trazodone HCl (Trazodone Hydrochloride), 50 MG PO HS Trazodone Hcl (Trazodone Hcl), 1 TAB PO QPM Scheduled PRN Acetaminophen (Acetaminophen), 650 MG PO Q6HP PRN Albuterol Sulfate (Albuterol Sulfate), 1 VIAL NEB Q4HPRN PRN Diphenhydramine-Zinc Acetate (Benadryl Cream), 1 APPLIC TOP Q6HPRN PRN Lorazepam (Ativan Tablet), 1 TAB PO TID PRN for ANXIETY, (Reported) Miscellaneous Medications Trazodone Hcl (Trazodone Hcl), 150 MG PO, (Reported) Discharge Statement: "Patient was advised to return to the ER or call 911 if any headaches, dizziness, shortness of breath, chest pain, abdominal pain, bleeding, fevers, or worsening of medical condition. Patient was counseled about treatment plan, medications, possible side effects, patientverbalized understanding. All questions were answered to the best of my ability. This discharge took greater then 30 minutes in planning, reviewing documentation, counseling the patient, and discussing with other team members." ASSESSMENT ASSESSMENT Assessment Date of Service: Jan 12, 2025 Billing Provider: LAURITA SPARKS MD Common Visit Codes: 68010-DJJ/OBS DISCH DAY >30min REBA PRICE Jan 12, 2025 13:17 LAURITA SPARKS MD Jan 17, 2025 23:18
[2025-01-12] MEDS ORDERED: APIX5TAB PO (13:49)
[2025-01-12] MEDS: HYDROcodone-ACET 5/325MG TAB PO ONE (14:30)
--- NOTE | 2025-01-12 15:11 | DVHPN2 ---
Progress Note - Dictate Date Seen: Jan 12, 2025 Medical Necessity Reason Pt with a Central, PICC or Fol: No Subjective Patient complains of hip pain vital signs Vital Sign Date Time Temp Pulse Resp B/P (MAP) Pulse Ox O2 Delivery O2 Flow Rate FiO2 01/12/25 14:28 167/74 01/12/25 12:31 98.2 84 20 91 98.2 01/12/25 08:00 Nasal Cannula* 2 28 Total Intake and Output 01/11/25 01/11/25 01/12/25 15:00 23:00 07:00 Intake Total 50 ml 500 ml 240 ml Balance 50 ml 500 ml 240 ml medications Current Medications Medications Dose Ordered Sig/Caroline Route Start Time Stop Time Status Last Admin Dose Admin Oxycodone HCl 10 mg ONCE PRN PO 01/09/25 18:15 01/09/25 18:43 10 MG Ergocalciferol 50,000 unit Q7D PO 01/10/25 10:00 01/10/25 09:07 50,000 UNIT Metoprolol Succinate 50 mg DAILY PO 01/10/25 10:00 01/12/25 08:43 50 MG Atorvastatin Calcium 40 mg HS PO 01/10/25 22:00 01/11/25 21:16 40 MG Hydralazine HCl 50 mg TID PO 01/09/25 22:00 01/12/25 14:28 50 MG Nifedipine 90 mg DAILY PO 01/10/25 10:00 01/12/25 08:43 90 MG Diagnostic Test (Pha) 1 strip ACHS 01/09/25 22:00 01/12/25 12:07 1 STRIP Insulin Human Regular ACHS SC 01/09/25 22:00 Dextrose 50 ml UD PRN IV 01/09/25 21:30 Pantoprazole Sodium 40 mg DAILY IV 01/10/25 10:00 01/12/25 08:42 40 MG Zinc Acetate/ Diphenhydramine 1 applic Q6HPRN PRN TOP 01/10/25 01:00 01/10/25 23:15 1 APPLIC Acetaminophen/ Hydrocodone Bitart 1 tab QID PO 01/10/25 09:00 01/12/25 12:05 1 TAB Morphine Sulfate 1 mg Q4HP PRN IV 01/10/25 11:45 01/11/25 23:58 1 MG Lorazepam 0.5 mg TID PRN PO 01/10/25 11:45 01/12/25 04:44 0.5 MG Ticagrelor 60 mg BID PO 01/10/25 22:00 01/12/25 10:37 60 MG Enoxaparin Sodium 70 mg DAILY SC 01/11/25 10:00 UNV Acetaminophen 650 mg Q6HP PRN PO 01/10/25 14:15 Patient Own Medication 3 tab TID PO 01/10/25 22:00 UNV Enoxaparin Sodium 70 mg DAILY SC 01/11/25 10:00 01/12/25 10:37 70 MG Sevelamer HCl 2,400 mg TIDWM PO 01/10/25 18:00 01/12/25 12:05 2,400 MG Vancomycin HCl 0 ml @ 0 mls/hr UD IV 01/10/25 14:45 Ceftriaxone Sodium/Dextrose 50 ml @ 100 mls/hr DAILY IV 01/10/25 16:30 01/12/25 08:44 100 MLS/HR Multivit/Ca Carb/ B Cmplx/FA/Prenat 1 tab DAILY PO 01/11/25 10:00 01/12/25 08:43 1 TAB Lactulose 30 ml BID PO 01/11/25 22:00 01/12/25 08:42 30 ML objective HEENT: No evidence of JVD, no oral ulcers. Pulmonary: Lungs are clear on auscultation bilaterally Cardiovascular S1-S2, no S3 or S4 Abdomen: Bowel sounds positive, soft no rebound tenderness Skin: No rash Neurological: Alert, oriented, no focal weakness Extremities no edema laboratory and microbiology Laboratory Tests 01/12/25 06:13 Test 01/12/25 06:13 Range/Units Serum Glucose 99 74-106 mg/dL Assessment/Plan Assessment: 1. End-stage renal disease on dialysis TTS 2. Acute DVT of right IJ cephalic and basilic vein 3. Hyperkalemia managed with dialysis 4. Fluid overload managed with dialysis 5. CHF 6. Anemia of end-stage renal disease 7. Secondary hyperparathyroidism 8. Diskitis of the lumbosacral spine 9. Hip pain Plan and recommendations Hemodialysis TTS. I discussed with primary team about patient's hip pain. Resume antihypertensive med Continue IV antibiotics Rocephin and vancomycin Patient is on anticoagulation currently as primary team Continue phosphate binders, low phosphorus diet Javed for goal hemoglobin 10-11 Patient is pending to a the PICC line for completion of Rocephin Stable from Nephrology perspective Thank you very much for allowing us to participate in the care of this patient please contact if you have any questions. Plan discussed with: Patient SURINDER RUANO MD Jan 12, 2025 15:11
--- NOTE | 2025-01-12 17:10 | DVH ---
BILATERAL LOWER EXTREMITY VENOUS DUPLEX REASON FOR EXAMINATION: rule out dvt. History of bilateral upper extremity DVT. Patient anticoagula saul. COMPARISON: US RT UPPER DVT on DOS: 01/09/25, US LT UPPER DVT on DOS: 10/15/23, US BILAT LOWER DVT on D OS: 08/23/22 TECHNIQUE: Using real-time freeze-frame technique with a high-frequency transducer, multiple longitu dinal and transverse sections were obtained. Simultaneous color flow and spectral Doppler imaging wa s performed. FINDINGS: There is good visualization of the deep venous system with no intraluminal filling defects identified. Normal venous compressibility is seen and there is flow augmentation. Color flow Doppler imaging is unremarkable. There is an anechoic 2.7 x 2.7 cm cystic structure lateral to the right common femoral artery with a few internal echoes that is nonvascular and appears to extend into the pelvis. There is a 1.9 x 0.8 x 1.8 cm morphologically normal lymph node in the left groin. IMPRESSION: NO EVIDENCE OF DEEP VENOUS THROMBOSIS. There is a 2.7 cm cystic structure in the right groin lateral to the common femoral artery that appea rs to extend into the pelvis. Further evaluation with contrast-enhanced CT is recommended.
[2025-01-13 05:00] VITALS: BP 116/61; PULSE 75; RESP 16; TEMP 97.9; O2SAT 92
[2025-01-13] MEDS ORDERED: SODIUM CHL 0.9% 1000 ML BAG XX ONE (07:00)
[2025-01-13 08:00] VITALS: PULSE 75; RESP 18
[2025-01-13 08:00] LABS: Hematocrit 30.2 % (41.0-53.0); Hemoglobin 10.2 g/dL (13.5-17.5); Mean Corpuscular Hemoglobin 29.4 pg (28.0-32.0); Mean Corpuscular Volume 86.9 fL (80.0-100.0); Nucleated Red Blood Cells % 0.1 %
[2025-01-13 08:05] LABS: Anion Gap 16 (5-15); Carbon Dioxide 28 mmol/L (20-31); Potassium 4.7 mmol/L (3.5-5.1)
[2025-01-13 08:06] LABS: Calcium 10.2 mg/dL (8.7-10.4)
[2025-01-13 08:11] LABS: BUN/Creatinine Ratio 5.5 (10.0-20.0); Glucose 96 mg/dL (74-106)
[2025-01-13 08:16] LABS: Blood Urea Nitrogen 45 mg/dL (9-23); Chloride 89 mmol/L (98-107); Sodium 133 mmol/L (136-145)
[2025-01-13 09:00] VITALS: BP 137/50; PULSE 75; RESP 18; TEMP 98.4; O2SAT 96
--- NOTE | 2025-01-13 11:25 | DVHPNRES ---
Progress Note Date Seen: Jan 12, 2025 Resident Creating Document: REBA PRICE RESIDENT Medical Necessity Reason Pt with a Central, PICC or Fol: No Subjective Review of Systems Mr. Jenkins is a 54 year old male with PMHx of type 1 diabetes mellitus, hypertension, ESRD on dialysis on schedule who produces no urine, DARSHAN, myocardial infarction x 2 GINO, peripheral neuropathy, anxiety, and pacemaker placement 7 years ago, who presented to the ED with chief complaint of right arm pain. He states that 7 days ago after the placement of a peripheral line for IV antibiotics, he began to have progressive onset of pain originating near his right elbow described as pressure like, radiating up and down his arm, with intensity of 10/10, aggravated by movement of his arm and slightly relieved with the use of heating pads. He denies changes in the skin of right arm, swelling, redness, numbness of the right arm or fingers, chest pain or shortness of breath. The patient was recently discharged on 12/19/2024 from this institution with prescription of 5 week course of IV vancomycin and ceftriaxone to be received with dialysis due to Acute Diskitis Osteomyelitis of L3-4, which he is currently receiving at [facility] acute. Due to progressive worsening of pain, the patient sought medical attention at the ED. Past medical history:CAD, HTN, [place], hyperlipidemia, Periperal neuropathy, anxiety, diabetes mellitus type 1, end-stage renal disease on dialysis Past Surgical History: Other (Fistula formation for dialysis ) Family History: CVA, DM, Hypertension Smoke: <1 pack per day (Smoked 1 cigarette a week for 20 years) ALCOHOL: none (Previous heavy alcohol use, quit 12 years ago) Drugs: Marijuana (Daily marijuana use for 30 years) Lives: Other (Currently at a SNF ) Domestic Violence: Neg 01/10/2025: Today the patient was seen and examined by me at the bedside. Patient complains that he still has a lot of back pain which he rates 10/ 10 due to his osteomyelitis. He also complains of pain in his right arm and heat pack was given. We stopped his heparin drip and are giving him Lovenox 70 mg once daily instead of twice daily subcutaneously his creatinine clearance is low. Patient will undergo hemodialysis tomorrow. We are continuing his IV medication for osteomyelitis which is vancomycin and ceftriaxone intravenouss. Patient also complains of constipation and MiraLAX 17 g was given to him. 01/11/25:Today the patient was seen and examined by me at the bedside. Patient is no new active complaints except for pain in the right shoulder for which heat pack was applied. 01/12/25: Today the patient was discharged to SNF, but before leaving PICC line was to be placed on his thigh. However patient complained of hip pain and venous Doppler of b/l legs was ordered to rule out DVT before picc line placement, pending results. Possible discharge tomorrow after PICC line is placed Objective vital signs Vital Sign Date Time Temp Pulse Resp B/P (MAP) Pulse Ox O2 Delivery O2 Flow Rate FiO2 01/13/25 09:49 137/50 01/13/25 09:49 75 01/13/25 09:00 98.4 18 96 98.4 01/12/25 20:00 Room Air* 0 21 Total Intake and Output 01/12/25 01/12/25 01/13/25 15:00 23:00 07:00 Intake Total 50 ml 520 ml 320 ml Balance 50 ml 520 ml 320 ml medications Current Medications Medications Dose Ordered Sig/Caroline Route Start Time Stop Time Status Last Admin Dose Admin Oxycodone HCl 10 mg ONCE PRN PO 01/09/25 18:15 01/09/25 18:43 10 MG Ergocalciferol 50,000 unit Q7D PO 01/10/25 10:00 01/10/25 09:07 50,000 UNIT Metoprolol Succinate 50 mg DAILY PO 01/10/25 10:00 01/13/25 09:49 50 MG Atorvastatin Calcium 40 mg HS PO 01/10/25 22:00 01/12/25 20:56 40 MG Hydralazine HCl 50 mg TID PO 01/09/25 22:00 01/12/25 20:57 50 MG Nifedipine 90 mg DAILY PO 01/10/25 10:00 01/13/25 09:49 90 MG Diagnostic Test (Pha) 1 strip ACHS 01/09/25 22:00 01/13/25 06:49 1 STRIP Insulin Human Regular ACHS SC 01/09/25 22:00 Dextrose 50 ml UD PRN IV 01/09/25 21:30 Pantoprazole Sodium 40 mg DAILY IV 01/10/25 10:00 01/13/25 09:51 40 MG Zinc Acetate/ Diphenhydramine 1 applic Q6HPRN PRN TOP 01/10/25 01:00 01/10/25 23:15 1 APPLIC Acetaminophen/ Hydrocodone Bitart 1 tab QID PO 01/10/25 09:00 01/13/25 05:41 1 TAB Morphine Sulfate 1 mg Q4HP PRN IV 01/10/25 11:45 01/12/25 20:58 1 MG Lorazepam 0.5 mg TID PRN PO 01/10/25 11:45 01/13/25 00:15 0.5 MG Ticagrelor 60 mg BID PO 01/10/25 22:00 01/12/25 20:56 60 MG Enoxaparin Sodium 70 mg DAILY SC 01/11/25 10:00 UNV Acetaminophen 650 mg Q6HP PRN PO 01/10/25 14:15 Patient Own Medication 3 tab TID PO 01/10/25 22:00 UNV Enoxaparin Sodium 70 mg DAILY SC 01/11/25 10:00 01/13/25 09:51 70 MG Sevelamer HCl 2,400 mg TIDWM PO 01/10/25 18:00 01/13/25 08:23 2,400 MG Vancomycin HCl 0 ml @ 0 mls/hr UD IV 01/10/25 14:45 Ceftriaxone Sodium/Dextrose 50 ml @ 100 mls/hr DAILY IV 01/10/25 16:30 01/13/25 09:52 100 MLS/HR Multivit/Ca Carb/ B Cmplx/FA/Prenat 1 tab DAILY PO 01/11/25 10:00 01/13/25 09:49 1 TAB Lactulose 30 ml BID PO 01/11/25 22:00 01/13/25 09:53 30 ML Examination General: The patient alert and oriented in person place and time. Patient following commands HEENT: Normocephalic, atraumatic, normal reactive pupils, EOM intact, pink conjunctiva, pink moist mucous membrane Respiratory/pulmonary: Bilateral chest expansion, no pain on palpation of chest wall, presence of pacemaker in left upper pectoral region, clear lungs bilaterally, vesicular murmurs present in almost all lung leal, no associated crackles or wheezes. Cardiovascular: Normal RRR, normal S1 and S2, no murmurs Abdomen: Abdomen nondistended, normal bowel sounds, soft, there is no pain to palpation in any of the abdominal quadrants, no palpable masses. Extremities: No deformities, there is no peripheral edema present at the lower extremities, normal pulses, there is pain on palpation of right arm near the elbow, no erythema or edema of this area noticed. AV fistula in upper left arm which thrills Skin: Presence of widespread papular rash present on chest, back, arms, and legs; presence of 3x 3 cm lump in the mid back, soft, movable Neurological: Intact cranial nerves with no focal neurologic deficits laboratory and microbiology Laboratory Tests 01/13/25 06:00 Test 01/13/25 06:00 Range/Units Serum Glucose 96 74-106 mg/dL Microbiology Date/Time Source Procedure Growth Status 01/10/25 03:30 Nose MRSA Screen - Final Complete 01/09/25 18:38 Blood Blood Culture - Preliminary NO GROWTH AFTER 72 HOURS OF INCUBATION. Resulted Labs and/or images reviewed: Labs reviewed by me, Image(s) reviewed by me Problem List/Assessment/Plan Problem List/Assessment/Plan #DVT of Right Internal Jugular Vein, Cephalic Vein, and Basilic vein -Duplex US Upper Extremity: Deep venous thrombosis in the right internal jugular vein, basilic vein, cephalic vein -initially heparin drip was given on admission, stopped on day 1 and Lovenox 70 mg once daily instead of twice daily subcutaneous given patient is creatinine clearance is low -Morphine 1 mg to 4 PRN -[place] 10/325 mg p.o. q.i.d. -Heating pads as needed for pain control #ESRD on Hemodialysis -Last dialysis was 01/09/2025 -Nephrology on board, today 01/11 done with dialysis a total of 3700 output -Monitor renal function and electrolytes -Sevelamer 800 mg PO TID -Vitamin D 51097 units PO q7d -Renal diet # Acute Diskitis Osteomyelitis of L3-4 -continue vancomycin 1 g and ceftriaxone 2 g IV daily #DVT of Right Internal Jugular Vein, Cephalic Vein, and Basilic vein -Duplex US Upper Extremity: Deep venous thrombosis in the right internal jugular vein, basilic vein, cephalic vein -initially heparin drip was given on admission, stopped on day 1 and Lovenox 70 mg once daily instead of twice daily subcutaneous given patient is creatinine clearance is low -Morphine 1 mg to 4 PRN -[place] 10/325 mg p.o. q.i.d. -Heating pads as needed for pain control #ESRD on Hemodialysis -Last dialysis was 01/09/2025 -Nephrology consult to Joseline delarosa has been placed -Monitor renal function and electrolytes -Sevelamer 800 mg PO TID -Vitamin D 99409 units PO q7d -Renal diet # Acute Diskitis Osteomyelitis of L3-4 -continue vancomycin 1 g and ceftriaxone 2 g IV daily #Type 2 Diabetes Mellitus, HbA1c 6.0% -Mild SSI -Accu-cheks #Hypertension -Nifedipine 90 mg PO daily -Hydralazine 50 mg PO TID -Metoprolol succinate 50 mg PO daily #Hyperlipidemia -Atorvastatin 40 mg PO HS #Normocytic anemia -Monitor H&H #Mild Hyponatremia -Monitor sodium levels #Coronary artery disease with history of [place] -status post PCI with x 2 GINO Ischemic cardiomyopathy status post [employer]-D -Brilinta 60 mg PO BID -Aspirin is currently being held due to the heparin drip -Ordered EKG to evaluate rhythm #Marijuana use patient counseled regarding side effects, harms of taking drug and regarding cessation #Tobacco use patient counseled regarding side effects, harms of smoking and regarding cessation # history of anxiety disorder Continue lorazepam 0.5 mg p.o. t.i.d. PRN Diet: Renal GI prophylaxis: Protonix 40 mg IV daily DVT prophylaxis: Lovenox 70 mg subcutaneous daily Case discussed with Dr. Rodriguez Goals of care discussed with the patient for over 26 minutes. FULL CODE Plan discussed with: Patient, Other (rn) My Orders My Orders Orders - REBA PRICE Procedure Category Date Status Time Tap Water Enema ORDERS 01/12/25 Transmitted 11:40 Schedule For Dc JADE 01/12/25 In Process Clinic F/U 13:20 * Ice Cream Vendor CONS 01/12/25 Transmitted Consult * Picc Line Consult CONS 01/12/25 Transmitted 14:21 Bilat Lower Dvt US 01/12/25 Resulted 16:07 Ct Ab Pelvis W Wo CT 01/13/25 Logged Con-Iv Only 10:44 Date of Service: Jan 12, 2025 Billing Provider: LAURITA RODRIGUZE MD Common Visit Codes: [id number] INP/OBS CARE(HIGH) REBA PRICE RESIDENT Jan 13, 2025 11:25 LAURITA RODRIGUEZ MD Jan 17, 2025 23:28
--- NOTE | 2025-01-13 11:35 | DVHPNRES ---
Progress Note Date Seen: Jan 13, 2025 Resident Creating Document: REBA PRICE RESIDENT Medical Necessity Reason Pt with a Central, PICC or Fol: No Subjective Review of Systems Mr. Jenkins is a 54 year old male with PMHx of type 1 diabetes mellitus, hypertension, ESRD on dialysis on schedule who produces no urine, DARSHAN, myocardial infarction x 2 GINO, peripheral neuropathy, anxiety, and pacemaker placement 7 years ago, who presented to the ED with chief complaint of right arm pain. He states that 7 days ago after the placement of a peripheral line for IV antibiotics, he began to have progressive onset of pain originating near his right elbow described as pressure like, radiating up and down his arm, with intensity of 10/10, aggravated by movement of his arm and slightly relieved with the use of heating pads. He denies changes in the skin of right arm, swelling, redness, numbness of the right arm or fingers, chest pain or shortness of breath. The patient was recently discharged on 12/19/2024 from this institution with prescription of 5 week course of IV vancomycin and ceftriaxone to be received with dialysis due to Acute Diskitis Osteomyelitis of L3-4, which he is currently receiving at [facility] acute. Due to progressive worsening of pain, the patient sought medical attention at the ED. Past medical history:CAD, HTN, RI, hyperlipidemia, Periperal neuropathy, anxiety, diabetes mellitus type 1, end-stage renal disease on dialysis Past Surgical History: Other (Fistula formation for dialysis ) Family History: CVA, DM, Hypertension Smoke: <1 pack per day (Smoked 1 cigarette a week for 20 years) ALCOHOL: none (Previous heavy alcohol use, quit 12 years ago) Drugs: Marijuana (Daily marijuana use for 30 years) Lives: Other (Currently at a SNF ) Domestic Violence: Neg 01/10/2025: Today the patient was seen and examined by me at the bedside. Patient complains that he still has a lot of back pain which he rates 10/ 10 due to his osteomyelitis. He also complains of pain in his right arm and heat pack was given. We stopped his heparin drip and are giving him Lovenox 70 mg once daily instead of twice daily subcutaneously his creatinine clearance is low. Patient will undergo hemodialysis tomorrow. We are continuing his IV medication for osteomyelitis which is vancomycin and ceftriaxone intravenouss. Patient also complains of constipation and MiraLAX 17 g was given to him. 01/11/25:Today the patient was seen and examined by me at the bedside. Patient is no new active complaints except for pain in the right shoulder for which heat pack was applied. 01/12/25: Today the patient was discharged to SNF, PICC line was to be placed on his thigh. However patient complained of hip pain and venous Doppler of b/l legs was done to rule out DVT., pending results. Possible discharge tomorrow after PICC line is placed 01/13/2025: Today the patient underwent hemodialysis. Bilateral leg venous Doppler showed 2.7 cm cystic structure in the right groin lateral to come femoral artery extending to the pelvis. CT with IV contrast of the abdomen and pelvis, pending. Nephrology on board, has agreed to do a short dialysis of 2 hours tomorrow for the IV contrast to be removed from his system. Awaiting PICC line placement. Patient complains of itching all over his body and calamine lotion was applied. Phosphorus ordered, pending. Objective vital signs Vital Sign Date Time Temp Pulse Resp B/P (MAP) Pulse Ox O2 Delivery O2 Flow Rate FiO2 01/13/25 09:49 137/50 01/13/25 09:49 75 01/13/25 09:00 98.4 18 96 98.4 01/12/25 20:00 Room Air* 0 21 Total Intake and Output 01/12/25 01/12/25 01/13/25 15:00 23:00 07:00 Intake Total 50 ml 520 ml 320 ml Balance 50 ml 520 ml 320 ml medications Current Medications Medications Dose Ordered Sig/[place]oline Route Start Time Stop Time Status Last Admin Dose Admin Oxycodone HCl 10 mg ONCE PRN PO 01/09/25 18:15 01/09/25 18:43 10 MG Ergocalciferol 50,000 unit Q7D PO 01/10/25 10:00 01/10/25 09:07 50,000 UNIT Metoprolol Succinate 50 mg DAILY PO 01/10/25 10:00 01/13/25 09:49 50 MG Atorvastatin Calcium 40 mg HS PO 01/10/25 22:00 01/12/25 20:56 40 MG Hydralazine HCl 50 mg TID PO 01/09/25 22:00 01/12/25 20:57 50 MG Nifedipine 90 mg DAILY PO 01/10/25 10:00 01/13/25 09:49 90 MG Diagnostic Test (Pha) 1 strip ACHS 01/09/25 22:00 01/13/25 06:49 1 STRIP Insulin Human Regular ACHS SC 01/09/25 22:00 Dextrose 50 ml UD PRN IV 01/09/25 21:30 Pantoprazole Sodium 40 mg DAILY IV 01/10/25 10:00 01/13/25 09:51 40 MG Zinc Acetate/ Diphenhydramine 1 applic Q6HPRN PRN TOP 01/10/25 01:00 01/10/25 23:15 1 APPLIC Acetaminophen/ Hydrocodone Bitart 1 tab QID PO 01/10/25 09:00 01/13/25 05:41 1 TAB Morphine Sulfate 1 mg Q4HP PRN IV 01/10/25 11:45 01/12/25 20:58 1 MG Lorazepam 0.5 mg TID PRN PO 01/10/25 11:45 01/13/25 00:15 0.5 MG Ticagrelor 60 mg BID PO 01/10/25 22:00 01/12/25 20:56 60 MG Enoxaparin Sodium 70 mg DAILY SC 01/11/25 10:00 UNV Acetaminophen 650 mg Q6HP PRN PO 01/10/25 14:15 Patient Own Medication 3 tab TID PO 01/10/25 22:00 UNV Enoxaparin Sodium 70 mg DAILY SC 01/11/25 10:00 01/13/25 09:51 70 MG Sevelamer HCl 2,400 mg TIDWM PO 01/10/25 18:00 01/13/25 08:23 2,400 MG Vancomycin HCl 0 ml @ 0 mls/hr UD IV 01/10/25 14:45 Ceftriaxone Sodium/Dextrose 50 ml @ 100 mls/hr DAILY IV 01/10/25 16:30 01/13/25 09:52 100 MLS/HR Multivit/Ca Carb/ B Cmplx/FA/Prenat 1 tab DAILY PO 01/11/25 10:00 01/13/25 09:49 1 TAB Lactulose 30 ml BID PO 01/11/25 22:00 01/13/25 09:53 30 ML Examination General: The patient alert and oriented in person place and time. Patient following commands HEENT: Normocephalic, atraumatic, normal reactive pupils, EOM intact, pink conjunctiva, pink moist mucous membrane Respiratory/pulmonary: Bilateral chest expansion, no pain on palpation of chest wall, presence of pacemaker in left upper pectoral region, clear lungs bilaterally, vesicular murmurs present in almost all lung leal, no associated crackles or wheezes. Cardiovascular: Normal RRR, normal S1 and S2, no murmurs Abdomen: Abdomen nondistended, normal bowel sounds, soft, there is no pain to palpation in any of the abdominal quadrants, no palpable masses. Extremities: No deformities, there is no peripheral edema present at the lower extremities, normal pulses, there is pain on palpation of right arm near the elbow, no erythema or edema of this area noticed. AV fistula in upper left arm which thrills Skin: Presence of widespread papular rash present on chest, back, arms, and legs; presence of 3x 3 cm lump in the mid back, soft, movable Neurological: Intact cranial nerves with no focal neurologic deficits laboratory and microbiology Laboratory Tests 01/13/25 06:00 Test 01/13/25 06:00 Range/Units Serum Glucose 96 74-106 mg/dL Microbiology Date/Time Source Procedure Growth Status 01/10/25 03:30 Nose MRSA Screen - Final Complete 01/09/25 18:38 Blood Blood Culture - Preliminary NO GROWTH AFTER 72 HOURS OF INCUBATION. Resulted Labs and/or images reviewed: Labs reviewed by me, Image(s) reviewed by me Problem List/Assessment/Plan Problem List/Assessment/Plan #DVT of Right Internal Jugular Vein, Cephalic Vein, and Basilic vein -Duplex US Upper Extremity: Deep venous thrombosis in the right internal jugular vein, basilic vein, cephalic vein -initially heparin drip was given on admission, stopped on day 1 and Lovenox 70 mg once daily instead of twice daily subcutaneous given patient is creatinine clearance is low -Morphine 1 mg to 4 PRN -[place] 10/325 mg p.o. q.i.d. -Heating pads as needed for pain control #ESRD on Hemodialysis -Last dialysis was 01/09/2025 -Nephrology on board, today 01/11 done with dialysis a total of 3700 output -Monitor renal function and electrolytes -Sevelamer 800 mg PO TID -Vitamin D 88520 units PO q7d -Renal diet # Acute Diskitis Osteomyelitis of L3-4 -continue vancomycin 1 g and ceftriaxone 2 g IV daily #DVT of Right Internal Jugular Vein, Cephalic Vein, and Basilic vein -Duplex US Upper Extremity: Deep venous thrombosis in the right internal jugular vein, basilic vein, cephalic vein -initially heparin drip was given on admission, stopped on day 1 and Lovenox 70 mg once daily instead of twice daily subcutaneous given patient is creatinine clearance is low -Morphine 1 mg to 4 PRN -[place] 10/325 mg p.o. q.i.d. -Heating pads as needed for pain control #ESRD on Hemodialysis -Last dialysis was 01/09/2025 -Nephrology consult to Joseline delarosa has been placed -Monitor renal function and electrolytes -Sevelamer 800 mg PO TID -Vitamin D 57731 units PO q7d -Renal diet # Acute Diskitis Osteomyelitis of L3-4 -continue vancomycin 1 g and ceftriaxone 2 g IV daily #Type 2 Diabetes Mellitus, HbA1c 6.0% -Mild SSI -Accu-cheks #Hypertension -Nifedipine 90 mg PO daily -Hydralazine 50 mg PO TID -Metoprolol succinate 50 mg PO daily #Hyperlipidemia -Atorvastatin 40 mg PO HS #Normocytic anemia -Monitor H&H #Mild Hyponatremia -Monitor sodium levels #Coronary artery disease with history of [place] -status post PCI with x 2 GINO Ischemic cardiomyopathy status post [employer]-D -Brilinta 60 mg PO BID -Aspirin is currently being held due to the heparin drip -Ordered EKG to evaluate rhythm #Marijuana use -patient counseled regarding side effects, harms of taking drug and regarding cessation #Tobacco use -patient counseled regarding side effects, harms of smoking and regarding cessation # history of anxiety disorder -Continue lorazepam 0.5 mg p.o. t.i.d. PRN # cystic mass in right groin -Venous doppler of b/l leg shows: 2.7 cm cystic structure in the right groin lateral to come femoral artery extending to the pelvis. -CT abd/pelvis with contrast, pending Diet: Renal GI prophylaxis: Protonix 40 mg IV daily DVT prophylaxis: Lovenox 70 mg subcutaneous daily Case discussed with Dr. Rodriguez Goals of care discussed with the patient for over 26 minutes. FULL CODE Plan discussed with: Patient, Other (rn) My Orders My Orders Orders - REBA PRICE RESIDENT Procedure Category Date Status Time Tap Water Enema ORDERS 01/12/25 Transmitted 11:40 Schedule For Dc JADE 01/12/25 In Process Clinic F/U 13:20 * Research Assistant CONS 01/12/25 Transmitted Consult * Picc Line Consult CONS 01/12/25 Transmitted 14:21 Bilat Lower Dvt US 01/12/25 Resulted 16:07 Ct Ab Pelvis W Wo CT 01/13/25 Logged Con-Iv Only 10:44 Diphenhdramine PHA 01/13/25 Logged Injection (Benadryl 11:30 Date of Service: Jan 13, 2025 Billing Provider: LAURITA RODRIGUEZ MD Common Visit Codes: [id number] INP/OBS CARE(HIGH) REBA PRICE RESIDENT Jan 13, 2025 11:35 LAURITA RODRIGUEZ MD Jan 17, 2025 23:29
[2025-01-13] MEDS: diphenhdrAMINE HCL 50 MG/1 ML VL IV PRN (12:36)
--- NOTE | 2025-01-13 12:38 | DVHPN2 ---
Progress Note - Dictate Date Seen: Jan 13, 2025 Medical Necessity Reason Pt with a Central, PICC or Fol: No Subjective Patient undergoing hemodialysis, no acute events. vital signs Vital Sign Date Time Temp Pulse Resp B/P (MAP) Pulse Ox O2 Delivery O2 Flow Rate FiO2 01/13/25 09:49 137/50 01/13/25 09:49 75 01/13/25 09:00 98.4 18 96 98.4 01/12/25 20:00 Room Air* 0 21 Total Intake and Output 01/12/25 01/12/25 01/13/25 15:00 23:00 07:00 Intake Total 50 ml 520 ml 320 ml Balance 50 ml 520 ml 320 ml medications Current Medications Medications Dose Ordered Sig/Caroline Route Start Time Stop Time Status Last Admin Dose Admin Oxycodone HCl 10 mg ONCE PRN PO 01/09/25 18:15 01/09/25 18:43 10 MG Ergocalciferol 50,000 unit Q7D PO 01/10/25 10:00 01/10/25 09:07 50,000 UNIT Metoprolol Succinate 50 mg DAILY PO 01/10/25 10:00 01/13/25 09:49 50 MG Atorvastatin Calcium 40 mg HS PO 01/10/25 22:00 01/12/25 20:56 40 MG Hydralazine HCl 50 mg TID PO 01/09/25 22:00 01/12/25 20:57 50 MG Nifedipine 90 mg DAILY PO 01/10/25 10:00 01/13/25 09:49 90 MG Diagnostic Test (Pha) 1 strip ACHS 01/09/25 22:00 01/13/25 06:49 1 STRIP Insulin Human Regular ACHS SC 01/09/25 22:00 Dextrose 50 ml UD PRN IV 01/09/25 21:30 Pantoprazole Sodium 40 mg DAILY IV 01/10/25 10:00 01/13/25 09:51 40 MG Zinc Acetate/ Diphenhydramine 1 applic Q6HPRN PRN TOP 01/10/25 01:00 Hold 01/10/25 23:15 1 APPLIC Acetaminophen/ Hydrocodone Bitart 1 tab QID PO 01/10/25 09:00 01/13/25 05:41 1 TAB Morphine Sulfate 1 mg Q4HP PRN IV 01/10/25 11:45 01/12/25 20:58 1 MG Lorazepam 0.5 mg TID PRN PO 01/10/25 11:45 01/13/25 00:15 0.5 MG Ticagrelor 60 mg BID PO 01/10/25 22:00 01/12/25 20:56 60 MG Enoxaparin Sodium 70 mg DAILY SC 01/11/25 10:00 UNV Acetaminophen 650 mg Q6HP PRN PO 01/10/25 14:15 Patient Own Medication 3 tab TID PO 01/10/25 22:00 UNV Enoxaparin Sodium 70 mg DAILY SC 01/11/25 10:00 01/13/25 09:51 70 MG Sevelamer HCl 2,400 mg TIDWM PO 01/10/25 18:00 01/13/25 08:23 2,400 MG Vancomycin HCl 0 ml @ 0 mls/hr UD IV 01/10/25 14:45 Ceftriaxone Sodium/Dextrose 50 ml @ 100 mls/hr DAILY IV 01/10/25 16:30 01/13/25 09:52 100 MLS/HR Multivit/Ca Carb/ B Cmplx/FA/Prenat 1 tab DAILY PO 01/11/25 10:00 01/13/25 09:49 1 TAB Lactulose 30 ml BID PO 01/11/25 22:00 01/13/25 09:53 30 ML Diphenhydramine HCl 25 mg Q4HP PRN IV 01/13/25 11:30 01/13/25 12:36 25 MG objective HEENT: No evidence of JVD, no oral ulcers. Pulmonary: Lungs are clear on auscultation bilaterally Cardiovascular S1-S2, no S3 or S4 Abdomen: Bowel sounds positive, soft no rebound tenderness Skin: No rash Neurological: Alert, oriented, no focal weakness Extremities no edema laboratory and microbiology Laboratory Tests 01/13/25 06:00 Test 01/13/25 06:00 Range/Units Serum Glucose 96 74-106 mg/dL Assessment/Plan Assessment: 1. End-stage renal disease on dialysis TTS 2. Acute DVT of right IJ cephalic and basilic vein 3. Hyperkalemia managed with dialysis 4. Fluid overload managed with dialysis 5. Cystic lesion in the right groin 6. Anemia of end-stage renal disease 7. Secondary hyperparathyroidism 8. Diskitis of the lumbosacral spine 9. Hip pain 10. CHF Plan and recommendations Hemodialysis TTS. He will go for a CT scan with contrast I discussed with primary team about patient's hip pain. Resume antihypertensive med Continue IV antibiotics Rocephin and vancomycin Patient is on anticoagulation currently as primary team Continue phosphate binders, low phosphorus diet Javed for goal hemoglobin 10-11 Patient awaiting to have a PICC line for continuation and completion of IV antibiotics Stable from Nephrology perspective. Thank you very much for allowing us to participate in the care of this patient please contact if you have any questions. Plan discussed with: Patient SURINDRE RUANO MD Jan 13, 2025 12:38
[2025-01-13 13:00] VITALS: BP 157/70; PULSE 71; RESP 16
[2025-01-13] MEDS: CALAMINE TOPical LOTION180 ML TOP ONE (15:54)
[2025-01-13 17:00] VITALS: BP 163/65; PULSE 79; RESP 18; TEMP 97.8; O2SAT 97
[2025-01-13] MEDS: VANCOMYCIN 500mg/100mL 100 ML IV ONE (19:43)
[2025-01-13 21:00] VITALS: BP 157/70; PULSE 80; RESP 18; TEMP 97.9; O2SAT 97
[2025-01-13] MEDS: EPOETIN ALFA-EPBX 4,000 UNIT/ML VIAL SC ONE (22:30)
[2025-01-14] VITALS (8 sets, daily range): BP systolic 130–159; BP diastolic 48–81; PULSE 70–84; RESP 16–20; TEMP 97.6–98.9; O2SAT 94–99
[2025-01-14] MEDS ORDERED: SODIUM CHL 0.9% 1000 ML BAG XX ONE (07:00)
[2025-01-14 07:39] LABS: Hematocrit 29.6 % (41.0-53.0); Hemoglobin 9.9 g/dL (13.5-17.5); Mean Corpuscular Hemoglobin 29.7 pg (28.0-32.0); Mean Corpuscular Volume 88.7 fL (80.0-100.0); Nucleated Red Blood Cells % 0.1 %
[2025-01-14 07:41] LABS: Anion Gap 10 (5-15); Carbon Dioxide 31 mmol/L (20-31); Potassium 4.6 mmol/L (3.5-5.1)
[2025-01-14 07:42] LABS: Calcium 10.1 mg/dL (8.7-10.4)
[2025-01-14 07:47] LABS: BUN/Creatinine Ratio 4.5 (10.0-20.0)
[2025-01-14 07:52] LABS: Blood Urea Nitrogen 29 mg/dL (9-23); Chloride 92 mmol/L (98-107); Glucose 119 mg/dL (74-106); Sodium 133 mmol/L (136-145)
[2025-01-14] MEDS ORDERED: IOHEXOL 300 MG/ML 100ML BOTTLE IJ ONE (10:25)
--- NOTE | 2025-01-14 11:12 | DVH ---
CT CT AB PELVIS W WO CON-IV ONLY INDICATION: cystic structure on right groin seen on usg EXAM DATE: 01/14/2025 10:27 AM COMPARISON: [facility]CT on DOS: 10/29/21 RADIATION DOSE: CTDIvol: 6 mGy, DLP: 728 mGy*cm PROCEDURE: Helical CT images were obtained of the abdomen and pelvis with IV contrast Sagittal and co bob reconstructions are provided. ORAL CONTRAST: None. ADDITIONAL IMAGES / REFORMATS: None All CT s cans at this medical facility are performed using dose modulation techniques as appropriate to a perf ormed exam including the following: Automated exposure control was utilized; adjustment of the MA and /or KV according to patient size; and use of iterative reconstruction technique. FINDINGS: LUNG BASE: Normal. LIVER: Normal. GALLBLADDER AND BILIARY TREE: Distended gallbladder with possible trace pericholecystic fluid and po ssible filling defect in the CBD which could be sludge. PANCREAS: Normal. SPLEEN: Normal. BOWEL: Normal. Normal appearing appendix with an appendecolith. ADRENALS: Normal. KIDNEYS AND URETER: Polycystic appearance of the kidneys could be due to ESRD. BLADDER: Decompressed thick walled bladder. REPRODUCTIVE ORGANS: Normal. LYMPH NODES:No lymphadenopathy. PERITONEUM: No ascites or free air. No other fluid collection. VESSELS: Scattered atherosclerotic calcifications are noted. RETROPERITONEUM: Normal. ABDOMINAL WALL: The cystic structure seen on prior US appears to be muscle on this CT exam. 1.9 x 6.0 cm lipoma on the posterior back midline location. BONES: Scattered osseous degenerative changes are noted. L2-3 discogenic endplate changes. IMPRESSION: Distended gallbladder with possible trace pericholecystic fluid and possible filling defect in the CB D which could be sludge. Consider MRCP for further evaluation. The cystic structure seen on prior US appears to be muscle on this CT exam.
--- NOTE | 2025-01-14 11:41 | DVHPNRES ---
Progress Note Date Seen: Jan 14, 2025 Resident Creating Document: PEPE STUART RESIDENT Medical Necessity Reason Pt with a Central, PICC or Fol: No Subjective Review of Systems Mr. Jenkins is a 54 year old male with PMHx of type 1 diabetes mellitus, hypertension, ESRD on dialysis on schedule who produces no urine, DARSHAN, myocardial infarction x 2 GINO, peripheral neuropathy, anxiety, and pacemaker placement 7 years ago, who presented to the ED with chief complaint of right arm pain. He states that 7 days ago after the placement of a peripheral line for IV antibiotics, he began to have progressive onset of pain originating near his right elbow described as pressure like, radiating up and down his arm, with intensity of 10/10, aggravated by movement of his arm and slightly relieved with the use of heating pads. He denies changes in the skin of right arm, swelling, redness, numbness of the right arm or fingers, chest pain or shortness of breath. The patient was recently discharged on 12/19/2024 from this institution with prescription of 5 week course of IV vancomycin and ceftriaxone to be received with dialysis due to Acute Diskitis Osteomyelitis of L3-4, which he is currently receiving at [facility]. Due to progressive worsening of pain, the patient sought medical attention at the ED. Past medical history:CAD, HTN, ID, hyperlipidemia, Periperal neuropathy, anxiety, diabetes mellitus type 1, end-stage renal disease on dialysis Past Surgical History: Other (Fistula formation for dialysis ) Family History: CVA, DM, Hypertension Smoke: <1 pack per day (Smoked 1 cigarette a week for 20 years) ALCOHOL: none (Previous heavy alcohol use, quit 12 years ago) Drugs: Marijuana (Daily marijuana use for 30 years) Lives: Other (Currently at a SNF ) Domestic Violence: Neg 01/10/2025: Today the patient was seen and examined by me at the bedside. Patient complains that he still has a lot of back pain which he rates 10/ 10 due to his osteomyelitis. He also complains of pain in his right arm and heat pack was given. We stopped his heparin drip and are giving him Lovenox 70 mg once daily instead of twice daily subcutaneously his creatinine clearance is low. Patient will undergo hemodialysis tomorrow. We are continuing his IV medication for osteomyelitis which is vancomycin and ceftriaxone intravenouss. Patient also complains of constipation and MiraLAX 17 g was given to him. 01/11/25:Today the patient was seen and examined by me at the bedside. Patient is no new active complaints except for pain in the right shoulder for which heat pack was applied. 01/12/25: Today the patient was discharged to SNF, PICC line was to be placed on his thigh. However patient complained of hip pain and venous Doppler of b/l legs was done to rule out DVT., pending results. Possible discharge tomorrow after PICC line is placed 01/13/2025: Today the patient underwent hemodialysis. Bilateral leg venous Doppler showed 2.7 cm cystic structure in the right groin lateral to come femoral artery extending to the pelvis. CT with IV contrast of the abdomen and pelvis, pending. Nephrology on board, has agreed to do a short dialysis of 2 hours tomorrow for the IV contrast to be removed from his system. Awaiting PICC line placement. Patient complains of itching all over his body and calamine lotion was applied. Phosphorus ordered, pending. 01/14/2025-patient is seen today at bedside, labs and chart reviewed. CT abdomen and pelvis revealed- Distended gallbladder with possible trace pericholecystic fluid and possible filling defect in the CBD which could be sludge. The cystic structure seen on prior US appears to be muscle on this CT exam. Objective vital signs Vital Sign Date Time Temp Pulse Resp B/P (MAP) Pulse Ox O2 Delivery O2 Flow Rate FiO2 01/14/25 08:44 155/81 01/14/25 08:44 74 01/14/25 08:38 98.4 19 99 98.4 01/14/25 08:15 Room Air* 0 21 Total Intake and Output 01/13/25 01/13/25 01/14/25 15:00 23:00 07:00 Intake Total 220 ml 525 ml 800 ml Balance 220 ml 525 ml 800 ml medications Current Medications Medications Dose Ordered Sig/Caroline Route Start Time Stop Time Status Last Admin Dose Admin Oxycodone HCl 10 mg ONCE PRN PO 01/09/25 18:15 01/09/25 18:43 10 MG Ergocalciferol 50,000 unit Q7D PO 01/10/25 10:00 01/10/25 09:07 50,000 UNIT Metoprolol Succinate 50 mg DAILY PO 01/10/25 10:00 01/14/25 08:44 50 MG Atorvastatin Calcium 40 mg HS PO 01/10/25 22:00 01/13/25 22:33 40 MG Hydralazine HCl 50 mg TID PO 01/09/25 22:00 01/14/25 05:27 50 MG Nifedipine 90 mg DAILY PO 01/10/25 10:00 01/14/25 08:44 90 MG Diagnostic Test (Pha) 1 strip ACHS 01/09/25 22:00 01/14/25 06:39 1 STRIP Insulin Human Regular ACHS SC 01/09/25 22:00 Dextrose 50 ml UD PRN IV 01/09/25 21:30 Pantoprazole Sodium 40 mg DAILY IV 01/10/25 10:00 01/14/25 08:28 40 MG Acetaminophen/ Hydrocodone Bitart 1 tab QID PO 01/10/25 09:00 01/13/25 22:32 1 TAB Morphine Sulfate 1 mg Q4HP PRN IV 01/10/25 11:45 01/14/25 08:28 1 MG Lorazepam 0.5 mg TID PRN PO 01/10/25 11:45 01/14/25 04:10 0.5 MG Ticagrelor 60 mg BID PO 01/10/25 22:00 01/13/25 22:35 60 MG Enoxaparin Sodium 70 mg DAILY SC 01/11/25 10:00 UNV Acetaminophen 650 mg Q6HP PRN PO 01/10/25 14:15 Patient Own Medication 3 tab TID PO 01/10/25 22:00 UNV Enoxaparin Sodium 70 mg DAILY SC 01/11/25 10:00 01/14/25 08:44 70 MG Sevelamer HCl 2,400 mg TIDWM PO 01/10/25 18:00 01/13/25 17:51 2,400 MG Vancomycin HCl 0 ml @ 0 mls/hr UD IV 01/10/25 14:45 Ceftriaxone Sodium/Dextrose 50 ml @ 100 mls/hr DAILY IV 01/10/25 16:30 01/14/25 08:29 100 MLS/HR Multivit/Ca Carb/ B Cmplx/FA/Prenat 1 tab DAILY PO 01/11/25 10:00 01/14/25 08:44 1 TAB Lactulose 30 ml BID PO 01/11/25 22:00 01/13/25 22:28 30 ML Diphenhydramine HCl 25 mg Q4HP PRN IV 01/13/25 11:30 01/13/25 12:36 25 MG Calamine 1 applic QIDP PRN TOP 01/13/25 15:30 Examination General: The patient alert and oriented in person place and time. Patient following commands HEENT: Normocephalic, atraumatic, normal reactive pupils, EOM intact, pink conjunctiva, pink moist mucous membrane Respiratory/pulmonary: Bilateral chest expansion, no pain on palpation of chest wall, presence of pacemaker in left upper pectoral region, clear lungs bilaterally, vesicular murmurs present in almost all lung leal, no associated crackles or wheezes. Cardiovascular: Normal RRR, normal S1 and S2, no murmurs Abdomen: Abdomen nondistended, normal bowel sounds, soft, there is no pain to palpation in any of the abdominal quadrants, no palpable masses. Extremities: No deformities, there is no peripheral edema present at the lower extremities, normal pulses, there is pain on palpation of right arm near the elbow, no erythema or edema of this area noticed. AV fistula in upper left arm which thrills Skin: Presence of widespread papular rash present on chest, back, arms, and legs; presence of 3x 3 cm lump in the mid back, soft, movable Neurological: Intact cranial nerves with no focal neurologic deficits laboratory and microbiology Laboratory Tests 01/14/25 05:54 Test 01/14/25 05:54 Range/Units Serum Glucose 119 H 74-106 mg/dL Microbiology Date/Time Source Procedure Growth Status 01/10/25 03:30 Nose MRSA Screen - Final Complete 01/09/25 18:38 Blood Blood Culture - Preliminary NO GROWTH AFTER 72 HOURS OF INCUBATION. Resulted Problem List/Assessment/Plan Problem List/Assessment/Plan Problem List/Assessment/Plan #DVT of Right Internal Jugular Vein, Cephalic Vein, and Basilic vein -Duplex US Upper Extremity: Deep venous thrombosis in the right internal jugular vein, basilic vein, cephalic vein -initially heparin drip was given on admission, stopped on day 1 and Lovenox 70 mg once daily instead of twice daily subcutaneous given patient is creatinine clearance is low -Morphine 1 mg to 4 PRN -[place] 10/325 mg p.o. q.i.d. -Heating pads as needed for pain control #ESRD on Hemodialysis -Last dialysis was 01/09/2025 -Nephrology on board, today 01/11 done with dialysis a total of 3700 output -Monitor renal function and electrolytes -Sevelamer 800 mg PO TID -Vitamin D 59945 units PO q7d -Renal diet # Acute Diskitis Osteomyelitis of L3-4 -continue vancomycin 1 g and ceftriaxone 2 g IV daily #DVT of Right Internal Jugular Vein, Cephalic Vein, and Basilic vein -Duplex US Upper Extremity: Deep venous thrombosis in the right internal jugular vein, basilic vein, cephalic vein -initially heparin drip was given on admission, stopped on day 1 and Lovenox 70 mg once daily instead of twice daily subcutaneous given patient is creatinine clearance is low -Morphine 1 mg to 4 PRN -[place] 10/325 mg p.o. q.i.d. -Heating pads as needed for pain control #ESRD on Hemodialysis -Last dialysis was 01/09/2025 -Nephrology consult to Joseline delarosa has been placed -Monitor renal function and electrolytes -Sevelamer 800 mg PO TID -Vitamin D 14646 units PO q7d -Renal diet # Acute Diskitis Osteomyelitis of L3-4 -continue vancomycin 1 g and ceftriaxone 2 g IV daily #Type 2 Diabetes Mellitus, HbA1c 6.0% -Mild SSI -Accu-cheks #Hypertension -Nifedipine 90 mg PO daily -Hydralazine 50 mg PO TID -Metoprolol succinate 50 mg PO daily #Hyperlipidemia -Atorvastatin 40 mg PO HS #Normocytic anemia -Monitor H&H #Mild Hyponatremia -Monitor sodium levels #Coronary artery disease with history of ID -status post PCI with x 2 GINO Ischemic cardiomyopathy status post [employer]OR [employer]SPORTATION-D -Brilinta 60 mg PO BID -Aspirin is currently being held due to the heparin drip -Ordered EKG to evaluate rhythm #Marijuana use -patient counseled regarding side effects, harms of taking drug and regarding cessation #Tobacco use -patient counseled regarding side effects, harms of smoking and regarding cessation # history of anxiety disorder -Continue lorazepam 0.5 mg p.o. t.i.d. PRN # cystic mass in right groin -Venous doppler of b/l leg shows: 2.7 cm cystic structure in the right groin lateral to come femoral artery extending to the pelvis. -CT abd/pelvis with contrast, pending Diet: Renal GI prophylaxis: Protonix 40 mg IV daily DVT prophylaxis: Lovenox 70 mg subcutaneous daily Case discussed with Dr. Rodriguez Goals of care discussed with the patient for over 26 minutes. FULL CODE Plan discussed with: Patient, Other (rn) Plan discussed with: Patient, Other (RN) Dietary Evaluation Review Comments: 1) Add 60g CCHO cardiac restriction to renal diet 2) Encourage optimal PO intake 3) Continue micronutrient supplementation 4) Follow-up with cardiology, pulmonology, and nephrology 5) Continue to monitor I&O, labs, and skin integrity Expected Outcomes/Goals: 1) appetite and labs to improve 2) f/u in 3-5 days PEPE STUART RESIDENT Jan 14, 2025 11:41
--- NOTE | 2025-01-14 11:41 | DVHPN2 ---
Progress Note - Dictate Date Seen: Jan 14, 2025 Medical Necessity Reason Pt with a Central, PICC or Fol: No Subjective No new complaints vital signs Vital Sign Date Time Temp Pulse Resp B/P (MAP) Pulse Ox O2 Delivery O2 Flow Rate FiO2 01/14/25 08:44 155/81 01/14/25 08:44 74 01/14/25 08:38 98.4 19 99 98.4 01/14/25 08:15 Room Air* 0 21 Total Intake and Output 01/13/25 01/13/25 01/14/25 15:00 23:00 07:00 Intake Total 220 ml 525 ml 800 ml Balance 220 ml 525 ml 800 ml medications Current Medications Medications Dose Ordered Sig/Caroline Route Start Time Stop Time Status Last Admin Dose Admin Oxycodone HCl 10 mg ONCE PRN PO 01/09/25 18:15 01/09/25 18:43 10 MG Ergocalciferol 50,000 unit Q7D PO 01/10/25 10:00 01/10/25 09:07 50,000 UNIT Metoprolol Succinate 50 mg DAILY PO 01/10/25 10:00 01/14/25 08:44 50 MG Atorvastatin Calcium 40 mg HS PO 01/10/25 22:00 01/13/25 22:33 40 MG Hydralazine HCl 50 mg TID PO 01/09/25 22:00 01/14/25 05:27 50 MG Nifedipine 90 mg DAILY PO 01/10/25 10:00 01/14/25 08:44 90 MG Diagnostic Test (Pha) 1 strip ACHS 01/09/25 22:00 01/14/25 06:39 1 STRIP Insulin Human Regular ACHS SC 01/09/25 22:00 Dextrose 50 ml UD PRN IV 01/09/25 21:30 Pantoprazole Sodium 40 mg DAILY IV 01/10/25 10:00 01/14/25 08:28 40 MG Acetaminophen/ Hydrocodone Bitart 1 tab QID PO 01/10/25 09:00 01/13/25 22:32 1 TAB Morphine Sulfate 1 mg Q4HP PRN IV 01/10/25 11:45 01/14/25 08:28 1 MG Lorazepam 0.5 mg TID PRN PO 01/10/25 11:45 01/14/25 04:10 0.5 MG Ticagrelor 60 mg BID PO 01/10/25 22:00 01/13/25 22:35 60 MG Enoxaparin Sodium 70 mg DAILY SC 01/11/25 10:00 UNV Acetaminophen 650 mg Q6HP PRN PO 01/10/25 14:15 Patient Own Medication 3 tab TID PO 01/10/25 22:00 UNV Enoxaparin Sodium 70 mg DAILY SC 01/11/25 10:00 01/14/25 08:44 70 MG Sevelamer HCl 2,400 mg TIDWM PO 01/10/25 18:00 01/13/25 17:51 2,400 MG Vancomycin HCl 0 ml @ 0 mls/hr UD IV 01/10/25 14:45 Ceftriaxone Sodium/Dextrose 50 ml @ 100 mls/hr DAILY IV 01/10/25 16:30 01/14/25 08:29 100 MLS/HR Multivit/Ca Carb/ B Cmplx/FA/Prenat 1 tab DAILY PO 01/11/25 10:00 01/14/25 08:44 1 TAB Lactulose 30 ml BID PO 01/11/25 22:00 01/13/25 22:28 30 ML Diphenhydramine HCl 25 mg Q4HP PRN IV 01/13/25 11:30 01/13/25 12:36 25 MG Calamine 1 applic QIDP PRN TOP 01/13/25 15:30 objective HEENT: No evidence of JVD, no oral ulcers. Pulmonary: Lungs are clear on auscultation bilaterally Cardiovascular S1-S2, no S3 or S4 Abdomen: Bowel sounds positive, soft no rebound tenderness Skin: No rash Neurological: Alert, oriented, no focal weakness Extremities no edema laboratory and microbiology Laboratory Tests 01/14/25 05:54 Test 01/14/25 05:54 Range/Units Serum Glucose 119 H 74-106 mg/dL Assessment/Plan Assessment: 1. End-stage renal disease on dialysis TTS 2. Acute DVT of right IJ cephalic and basilic vein 3. Hyperkalemia managed with dialysis 4. Fluid overload managed with dialysis 5. Cystic lesion in the right groin 6. Anemia of end-stage renal disease 7. Secondary hyperparathyroidism 8. Diskitis of the lumbosacral spine 9. Hip pain 10. CHF Plan and recommendations Hemodialysis TTS but scheduled for HD today after CT scan with IV contrast Continue antihypertensive medications Continue IV antibiotics Rocephin and vancomycin Patient is on anticoagulation currently as primary team Continue phosphate binders, low phosphorus diet Javed for goal hemoglobin 10-11 Patient awaiting to have a PICC line for continuation and completion of IV antibiotics Dietary Evaluation Review Comments: 1) Add 60g CCHO cardiac restriction to renal diet 2) Encourage optimal PO intake 3) Continue micronutrient supplementation 4) Follow-up with cardiology, pulmonology, and nephrology 5) Continue to monitor I&O, labs, and skin integrity Expected Outcomes/Goals: 1) appetite and labs to improve 2) f/u in 3-5 days Plan discussed with: Patient KELLY CARTER MD Jan 14, 2025 11:41
[2025-01-14] MEDS: CALAMINE TOPical LOTION180 ML TOP PRN (12:23)
--- NOTE | 2025-01-14 15:10 | DVHDSRES ---
Discharge Summary Date of Admission Resident Creating Document: PEPE STUART Jan 09, 2025 at 21:05 Date of Discharge: Jan 12, 2025 Labs/Diagnostic Data: Laboratory Results Test 01/14/25 11:32 01/14/25 05:54 01/13/25 06:00 01/11/25 05:40 POC Glucose 148 mg/dl (70-106) White Blood Count 3.9 10^3/uL (4.4-10.8) Red Blood Count 3.34 10^6/uL (4.5-5.90) Hemoglobin 9.9 g/dL (13.5-17.5) Hematocrit 29.6 % (41.0-53.0) Mean Corpuscular Volume 88.7 fL (80.0-100.0) Mean Corpuscular Hemoglobin 29.7 pg (28.0-32.0) Mean Corpuscular Hemoglobin Concent 33.4 g/dL (32.0-36.0) Red Cell Distribution Width 16.3 % (11.8-14.3) Platelet Count 223 10^3/uL (140-450) Mean Platelet Volume 8.6 fL (6.9-10.8) Neutrophils (%) (Auto) 65.8 % (37.0-80.0) Lymphocytes (%) (Auto) 13.0 % (10.0-50.0) Monocytes (%) (Auto) 13.3 % (0.0-12.0) Eosinophils (%) (Auto) 6.8 % (0.0-7.0) Basophils (%) (Auto) 1.1 % (0.0-2.0) Neutrophils # (Auto) 2.5 10 ^3/uL (1.6-8.6) Lymphocytes # (Auto) 0.5 10 ^3/uL (0.4-5.4) Monocytes # (Auto) 0.5 10 ^3/uL (0-1.3) Eosinophils # (Auto) 0.3 10 ^3/uL (0-0.8) Basophils # (Auto) 0 10 ^3/uL (0-0.2) Nucleated Red Blood Cells 0.1 % Sodium Level 133 mmol/L (136-145) Potassium Level 4.6 mmol/L (3.5-5.1) Chloride Level 92 mmol/L (98-107) Carbon Dioxide Level 31 mmol/L (20-31) Anion Gap 10 (5-15) Blood Urea Nitrogen 29 mg/dL (9-23) Creatinine 6.46 mg/dL (0.700-1.30) Glomerular Filtration Rate Calc 10 mL/min (>90) BUN/Creatinine Ratio 4.5 (10.0-20.0) Serum Glucose 119 mg/dL (74-106) Calcium Level 10.1 mg/dL (8.7-10.4) Random Vancomycin Level 23.1 ug/mL (5-10) Phosphorus Level 5.6 mg/dL (2.4-5.1) Iron Level 39 ug/dL (65-175) Total Iron Binding Capacity 164 ug/dL (250-425) Percent Iron Saturation 23.8 % (20-55) Ferritin 562.8 ng/mL (22-322) Test 01/10/25 05:10 01/09/25 18:39 01/09/25 18:34 Prothrombin Time 13.2 sec (9.3-11.8) Prothrombin Time INR 1.28 (0.9-1.15) Activated Partial Thromboplast Time 89.1 SEC (24.5-34.5) Hemoglobin A1c 6.0 % A1C (<5.7) Magnesium Level 2.3 mg/dL (1.6-2.6) Total Bilirubin 0.2 mg/dL (0.2-1.0) Direct Bilirubin 0.1 mg/dL (<0.3) Aspartate Amino Transferase (AST) 16 U/L (13-40) Alanine Aminotransferase (ALT) < 9 U/L (7-40) Alkaline Phosphatase 119 U/L (46-116) Total Protein 7.8 g/dL (5.7-8.2) Albumin 4.1 g/dL (3.2-4.8) Vitamin B12 Level 352 pg/mL (211-911) Vitamin D 25-Hydroxy 34.8 ng/mL (30.0-100) Thyroid Stimulating Hormone (TSH) 1.07 uIU/mL (0.55-4.78) Lactic Acid Level 0.6 mmol/L (0.4-2.0) Other Laboratory Tests 01/14/25 05:54 Brief Hx & Hospital Course: Mr. Jenkins is a 54 year old male with PMHx of type 1 diabetes mellitus, hypertension, ESRD on dialysis on schedule who produces no urine, DARSHAN, myocardial infarction x 2 GINO, peripheral neuropathy, anxiety, and pacemaker placement 7 years ago, who presented to the ED with chief complaint of right arm pain. He states that 7 days ago after the placement of a peripheral line for IV antibiotics, he began to have progressive onset of pain originating near his right elbow described as pressure like, radiating up and down his arm, with intensity of 10/10, aggravated by movement of his arm and slightly relieved with the use of heating pads. He denies changes in the skin of right arm, swelling, redness, numbness of the right arm or fingers, chest pain or shortness of breath. The patient was recently discharged on 12/19/2024 from this institution with prescription of 5 week course of IV vancomycin and ceftriaxone to be received with dialysis due to Acute Diskitis Osteomyelitis of L3-4, which he is currently receiving at [facility]. Due to progressive worsening of pain, the patient sought medical attention at the ED. Past medical history:CAD, HTN, [place], hyperlipidemia, Periperal neuropathy, anxiety, diabetes mellitus type 1, end-stage renal disease on dialysis Past Surgical History: Other (Fistula formation for dialysis ) Family History: CVA, DM, Hypertension Smoke: <1 pack per day (Smoked 1 cigarette a week for 20 years) ALCOHOL: none (Previous heavy alcohol use, quit 12 years ago) Drugs: Marijuana (Daily marijuana use for 30 years) Lives: Other (Currently at a SNF ) Domestic Violence: Neg Patient came in with pain in his right arm and duplex ultrasound of the upper extremity showed deep vein thrombosis in the right internal jugular vein, basilic vein, cephalic vein. Initially heparin drip was given on admission which was stopped and Lovenox 70 mg was continued. Given the patient's end- stage renal disease and low creatine clearance we gave Lovenox only once a day. Patient has been [place] and morphine we will given for pain control and heating pads were given as needed. Patient has ESRD on hemodialysis and he was dialysis on 1024. Nephrology was on board and we continue to monitor patient's renal function and electrolytes. We continued vitamin-D supplements and sevelamer 800 mg p.o. t.i.d. and kept the patient on a renal diet. We continued patient's antibiotics for acute diskitis osteomyelitis of L3-L4 with vancomycin 1 g and ceftriaxone 2 g IV daily. For diabetes mellitus, we continued mild SSI. For hypertension nifedipine and hydralazine were given daily and metoprolol succinate 50 mg was also continued. For hyperlipidemia atorvastatin was given. For patient's coronary artery disease with history of AK status post PCI and stenting Brilinta nd spirin and for marijuana use we have counseled him regarding side effects of marijuana and regarding cessation. Patient also has anxiety disorder and lorazepam was continued. During hospitalization patient complained of constipation and we gave him MiraLAX which did not work and we gave him lactulose as well as tap water enema which relieved his constipation. Now the patient is stable for discharge and we have counseled him regarding continued need for dialysis and antibiotics for his osteomyelitis-patient to continue IV antibiotic cefepime and vancomycin as ordered. Cefepime 2 g IV after each dialysis and vancomycin as per pharmacy protocol. Patient is a follow up with the CBC, CMP, ESR, CRP, vanc through and to be reviewed by primary care physician or MD at [facility]. Patient to continue hemodialysis as per schedule. Patient is scheduled to go back to sleep patient came from.. He has agreed with the discharge plan and is to follow up with his primary care physician, discharge clinic in 2 weeks. General: The patient alert and oriented in person place and time. Patient following commands HEENT: Normocephalic, atraumatic, normal reactive pupils, EOM intact, pink conjunctiva, pink moist mucous membrane Respiratory/pulmonary: Bilateral chest expansion, no pain on palpation of chest wall, presence of pacemaker in left upper pectoral region, clear lungs bilaterally, vesicular murmurs present in almost all lung leal, no associated crackles or wheezes. Cardiovascular: Normal RRR, normal S1 and S2, no murmurs Abdomen: Abdomen nondistended, normal bowel sounds, soft, there is no pain to palpation in any of the abdominal quadrants, no palpable masses. Extremities: No deformities, there is no peripheral edema present at the lower extremities, normal pulses, there is pain on palpation of right arm near the elbow, no erythema or edema of this area noticed. AV fistula in upper left arm which thrills Skin: Presence of widespread papular rash present on chest, back, arms, and legs; presence of 3x 3 cm lump in the mid back, soft, movable Neurological: Intact cranial nerves with no focal neurologic deficits Condition at Discharge: Stable Final Diagnosis/Problems List #DVT of Right Internal Jugular Vein, Cephalic Vein, and Basilic vein #ESRD on Hemodialysis # Acute Diskitis Osteomyelitis of L3-4 #DVT of Right Internal Jugular Vein, Cephalic Vein, and Basilic vein #ESRD on Hemodialysis # Acute Diskitis Osteomyelitis of L3-4 #Type 2 Diabetes Mellitus, HbA1c 6.0% #Hypertension #Hyperlipidemia #Normocytic anemia #Mild Hyponatremia #Coronary artery disease with history of AK -status post PCI with x 2 GINO #Ischemic cardiomyopathy status post [employer]ER-D #Marijuana use #Tobacco use # history of anxiety disorder # Discharge Disposition: Intermediate Facility Discharge Instruct/Medications Diet: Consistent carbohydrate, Cardiac 2g Na,low cholest, Renal Activity: No Restrictions, As Tolerated Follow Up/Referral: Primary care physician in 10 days CMP, ESR, CRP every week and vanco every 72 hours and fax it to the primary care doctor's office for reviewing Medications: Hold aspirin 81 mg Eliquis 5 mg b.i.d. daily for 3 months Cefepime 2 g IV after his dialysis and vancomycin 500 mg after each dialysis, vancomycin as per pharmacy protocol Please until 01/30/2025 Scheduled Apixaban Base (Eliquis), 5 MG PO BID Atorvastatin Calcium (Atorvastatin Calcium), 1 TAB PO DAILY Diphenhydramine HCl (Allergy Relief), 25 MG PO BID Ergocalciferol (Vitamin D 54584 Unit), 50,000 UNIT PO Q7D Folic Acid-Vitamin B6-Vitamin (B Complex/Folic Acid), 1 CAP OR DAILY Hydralazine HCl (Hydralazine Hydrochloride), 50 MG PO TID Hydrocodone-Acetaminophen (Hydrocodone Bitartrate/AC 10-325 mg), 1 TAB PO QID, (Reported) Insulin Glargine (Lantus Solostar), 100 UNIT SC QPM Insulin Lispro (Insulin Lispro), 100 UNIT IJ TID Metoprolol Succinate (Metoprolol Succinate Er), 1 TAB PO DAILY Nifedipine (Nifedipine Er), 1 TAB PO DAILY Patients Own Medication (Patients Own Medication), 1 PATCH TD DAILY, (Reported) Sevelamer Carbonate (Sevelamer Carbonate), 5 TAB PO TIDWM, (Reported) Sevelamer Carbonate (Renvela), 3 TAB PO TID Ticagrelor Base (Brilinta), 60 MG PO BID Trazodone HCl (Trazodone Hydrochloride), 50 MG PO HS Trazodone Hcl (Trazodone Hcl), 1 TAB PO QPM Scheduled PRN Acetaminophen (Acetaminophen), 650 MG PO Q6HP PRN Albuterol Sulfate (Albuterol Sulfate), 1 VIAL NEB Q4HPRN PRN Diphenhydramine-Zinc Acetate (Benadryl Cream), 1 APPLIC TOP Q6HPRN PRN Lorazepam (Ativan Tablet), 1 TAB PO TID PRN for ANXIETY, (Reported) Miscellaneous Medications Trazodone Hcl (Trazodone Hcl), 150 MG PO, (Reported) Discharge Statement: "Patient was advised to return to the ER or call 911 if any headaches, dizziness, shortness of breath, chest pain, abdominal pain, bleeding, fevers, or worsening of medical condition. Patient was counseled about treatment plan, medications, possible side effects, patientverbalized understanding. All questions were answered to the best of my ability. This discharge took greater then 30 minutes in planning, reviewing documentation, counseling the patient, and discussing with other team members." ASSESSMENT ASSESSMENT Assessment #DVT of Right Internal Jugular Vein, Cephalic Vein, and Basilic vein Date of Service: Jan 12, 2025 Billing Provider: LAURITA SPARKS MD Common Visit Codes: 25585-XJF/OBS DISCH DAY >30min PEPE STUART RESIDENT Jan 14, 2025 15:10 LAURITA SPARKS MD Jan 17, 2025 23:51
[2025-01-14] MEDS: CEFEPIME 1GM/50ML 50 ML IV ONE (17:53)
[2025-01-14] MEDS ORDERED: ALBUTEROL SULF 2.5 MG/0.5ML(0.5%) NEB SOLN NEB PRN (20:15)
[2025-01-15 01:00] VITALS: BP 138/70; PULSE 78; RESP 18; TEMP 98.6; O2SAT 95
[2025-01-15 05:00] VITALS: BP 140/71; PULSE 79; RESP 18; TEMP 98.4; O2SAT 97
[2025-01-15 06:47] LABS: Hematocrit 33.3 % (41.0-53.0); Hemoglobin 11.2 g/dL (13.5-17.5); Mean Corpuscular Hemoglobin 29.8 pg (28.0-32.0); Mean Corpuscular Volume 88.5 fL (80.0-100.0); Nucleated Red Blood Cells % 0.3 %
[2025-01-15 09:00] VITALS: BP 164/73; PULSE 82; RESP 19; TEMP 98.4; O2SAT 92
[2025-01-15 09:02] VITALS: O2SAT 98
--- NOTE | 2025-01-15 10:34 | DVHPNRES ---
Progress Note Date Seen: Jan 15, 2025 Resident Creating Document: REBA PRICE RESIDENT Medical Necessity Reason Pt with a Central, PICC or Fol: No Subjective Review of Systems Mr. Jenkins is a 54 year old male with PMHx of type 1 diabetes mellitus, hypertension, ESRD on dialysis on /Wed schedule who produces no urine, DARSHAN, myocardial infarction x 2 GINO, peripheral neuropathy, anxiety, and pacemaker placement 7 years ago, who presented to the ED with chief complaint of right arm pain. He states that 7 days ago after the placement of a peripheral line for IV antibiotics, he began to have progressive onset of pain originating near his right elbow described as pressure like, radiating up and down his arm, with intensity of 10/10, aggravated by movement of his arm and slightly relieved with the use of heating pads. He denies changes in the skin of right arm, swelling, redness, numbness of the right arm or fingers, chest pain or shortness of breath. The patient was recently discharged on 12/19/2024 from this institution with prescription of 5 week course of IV vancomycin and ceftriaxone to be received with dialysis due to Acute Diskitis Osteomyelitis of L3-4, which he is currently receiving at [facility]. Due to progressive worsening of pain, the patient sought medical attention at the ED. Past medical history:CAD, HTN, [place], hyperlipidemia, Periperal neuropathy, anxiety, diabetes mellitus type 1, end-stage renal disease on dialysis Past Surgical History: Other (Fistula formation for dialysis ) Family History: CVA, DM, Hypertension Smoke: <1 pack per day (Smoked 1 cigarette a week for 20 years) ALCOHOL: none (Previous heavy alcohol use, quit 12 years ago) Drugs: Marijuana (Daily marijuana use for 30 years) Lives: Other (Currently at a SNF ) Domestic Violence: Neg 01/11/25: Patient was discharge yesterday but is awaiting SNF placement back to [facility]. His medication from ceftriaxone is changed to cefepime which the patient has been counselled about. Vancomycin will be continued. Patient communicated understanding and will be going back to [facility] today. Objective vital signs Vital Sign Date Time Temp Pulse Resp B/P (MAP) Pulse Ox O2 Delivery O2 Flow Rate FiO2 01/15/25 09:07 164/73 01/15/25 09:07 82 01/15/25 09:02 98 Room Air 0.0 01/15/25 09:02 21 9/29/25 09:00 98.4 19 98.4 Total Intake and Output 01/14/25 01/14/25 01/15/25 15:00 23:00 07:00 Intake Total 50 ml 730 ml 600 ml Output Total 1 ml Balance 50 ml 730 ml 599 ml medications Current Medications Medications Dose Ordered Sig/Caroline Route Start Time Stop Time Status Last Admin Dose Admin Oxycodone HCl 10 mg ONCE PRN PO 01/09/25 18:15 01/09/25 18:43 10 MG Ergocalciferol 50,000 unit Q7D PO 01/10/25 10:00 01/10/25 09:07 50,000 UNIT Metoprolol Succinate 50 mg DAILY PO 01/10/25 10:00 01/15/25 09:07 50 MG Atorvastatin Calcium 40 mg HS PO 01/10/25 22:00 01/14/25 21:14 40 MG Hydralazine HCl 50 mg TID PO 01/09/25 22:00 01/15/25 05:45 50 MG Nifedipine 90 mg DAILY PO 01/10/25 10:00 01/15/25 09:07 90 MG Diagnostic Test (Pha) 1 strip ACHS 01/09/25 22:00 01/15/25 06:05 1 STRIP Insulin Human Regular ACHS SC 01/09/25 22:00 01/14/25 21:33 4 UNITS Dextrose 50 ml UD PRN IV 01/09/25 21:30 Pantoprazole Sodium 40 mg DAILY IV 01/10/25 10:00 01/15/25 09:06 40 MG Acetaminophen/ Hydrocodone Bitart 1 tab QID PO 01/10/25 09:00 01/14/25 18:51 1 TAB Morphine Sulfate 1 mg Q4HP PRN IV 01/10/25 11:45 01/15/25 05:47 1 MG Lorazepam 0.5 mg TID PRN PO 01/10/25 11:45 01/14/25 20:07 0.5 MG Ticagrelor 60 mg BID PO 01/10/25 22:00 01/15/25 09:24 60 MG Enoxaparin Sodium 70 mg DAILY SC 01/11/25 10:00 UNV Acetaminophen 650 mg Q6HP PRN PO 01/10/25 14:15 Patient Own Medication 3 tab TID PO 01/10/25 22:00 UNV Enoxaparin Sodium 70 mg DAILY SC 01/11/25 10:00 01/15/25 09:10 70 MG Sevelamer HCl 2,400 mg TIDWM PO 01/10/25 18:00 01/15/25 08:05 2,400 MG Vancomycin HCl 0 ml @ 0 mls/hr UD IV 01/10/25 14:45 Multivit/Ca Carb/ B Cmplx/FA/Prenat 1 tab DAILY PO 01/11/25 10:00 01/15/25 09:07 1 TAB Lactulose 30 ml BID PO 01/11/25 22:00 01/15/25 09:06 30 ML Diphenhydramine HCl 25 mg Q4HP PRN IV 01/13/25 11:30 01/13/25 12:36 25 MG Calamine 1 applic QIDP PRN TOP 01/13/25 15:30 01/14/25 12:23 1 APPLIC Albuterol 1.25 mg Q4HPRN PRN NEB 01/14/25 20:15 Examination General: The patient alert and oriented in person place and time. Patient following commands HEENT: Normocephalic, atraumatic, normal reactive pupils, EOM intact, pink conjunctiva, pink moist mucous membrane Respiratory/pulmonary: Bilateral chest expansion, no pain on palpation of chest wall, presence of pacemaker in left upper pectoral region, clear lungs bilaterally, vesicular murmurs present in almost all lung leal, no associated crackles or wheezes. Cardiovascular: Normal RRR, normal S1 and S2, no murmurs Abdomen: Abdomen nondistended, normal bowel sounds, soft, there is no pain to palpation in any of the abdominal quadrants, no palpable masses. Extremities: No deformities, there is no peripheral edema present at the lower extremities, normal pulses, there is pain on palpation of right arm near the elbow, no erythema or edema of this area noticed. AV fistula in upper left arm which thrills Skin: Presence of widespread papular rash present on chest, back, arms, and legs; presence of 3x3 cm lump (lipoma) in the mid back, soft, movable Neurological: Intact cranial nerves with no focal neurologic deficits laboratory and microbiology Laboratory Tests 01/15/25 06:12 01/14/25 05:54 Test 01/14/25 05:54 Range/Units Serum Glucose 119 H 74-106 mg/dL Microbiology Date/Time Source Procedure Growth Status 01/10/25 03:30 Nose MRSA Screen - Final Complete 01/09/25 18:38 Blood Blood Culture - Final NO GROWTH AFTER 5 DAYS OF INCUBATION. Complete Labs and/or images reviewed: Labs reviewed by me, Image(s) reviewed by me Problem List/Assessment/Plan Problem List/Assessment/Plan #DVT of Right Internal Jugular Vein, Cephalic Vein, and Basilic vein -Duplex US Upper Extremity: Deep venous thrombosis in the right internal jugular vein, basilic vein, cephalic vein -initially heparin drip was given on admission, stopped on day 1 and Lovenox 70 mg once daily instead of twice daily subcutaneous given patient is creatinine clearance is low -Morphine 1 mg to 4 PRN -[place] 10/325 mg p.o. q.i.d. -Heating pads as needed for pain control #ESRD on Hemodialysis -Last dialysis was 01/09/2025 -Nephrology consult to Joseline delarosa has been placed -Monitor renal function and electrolytes -Sevelamer 800 mg PO TID -Vitamin D 11681 units PO q7d -Renal diet # Acute Diskitis Osteomyelitis of L3-4 -continue vancomycin 1 g and ceftriaxone 2 g IV daily #Type 2 Diabetes Mellitus, HbA1c 6.0% -Mild SSI -Accu-cheks #Hypertension -Nifedipine 90 mg PO daily -Hydralazine 50 mg PO TID -Metoprolol succinate 50 mg PO daily #Hyperlipidemia -Atorvastatin 40 mg PO HS #Normocytic anemia -Monitor H&H #Mild Hyponatremia -Monitor sodium levels #Coronary artery disease with history of [place] -status post PCI with x 2 GINO Ischemic cardiomyopathy status 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 t.i.d. PRN # cystic mass in right groin -Venous doppler of b/l leg shows: 2.7 cm cystic structure in the right groin lateral to come femoral artery extending to the pelvis. -CT abd/pelvis with contras showed: Distended gallbladder with possible trace pericholecystic fluid and possible filling defect in the CBD which could be sludge. Consider MRCP for further evaluation. The cystic structure seen on prior US appears to be muscle on this CT exam. Diet: Renal Case discussed with Dr. Rodriguez Goals of care discussed with the patient for over 26 minutes. FULL CODE Plan discussed with: Patient, Other (rn) Dietary Evaluation Review Comments: 1) Add 60g CCHO cardiac restriction to renal diet 2) Encourage optimal PO intake 3) Continue micronutrient supplementation 4) Follow-up with cardiology, pulmonology, and nephrology 5) Continue to monitor I&O, labs, and skin integrity Expected Outcomes/Goals: 1) appetite and labs to improve 2) f/u in 3-5 days Date of Service: Jan 15, 2025 Billing Provider: LAURITA RODRIGUEZ MD Common Visit Codes: [id number] INP/OBS CARE(HIGH) REBA PRICE RESIDENT Jan 15, 2025 10:34 LAURITA RODRIGUEZ MD Jan 17, 2025 23:52
[2025-01-16] MEDS ORDERED: CEFEPIME 2GM/50ML NS 50 ML IV ONE (16:00)
== END 2025-01-15 12:45 | DRG 299 ==
LOC: ER 17:52 → EDBD 17:52 → OVERFLOW 21:05 → WEST WING 23:48
PROVIDERS: ADMIT Student in an Organized Health Care Education/Training Program; ATTEND Student in an Organized Health Care Education/Training Program
PROC: 5A1D70Z Performance of Urinary Filtration, Intermittent, Less than 6 Hours Per Day (ICD-10-PCS; principal; 2025-01-11)
PROC: 5A1D70Z Performance of Urinary Filtration, Intermittent, Less than 6 Hours Per Day (ICD-10-PCS; 2025-01-13)
PROC: 5A1D70Z Performance of Urinary Filtration, Intermittent, Less than 6 Hours Per Day (ICD-10-PCS; 2025-01-14)
DX: I82.C11 Acute embolism and thrombosis of right internal jugular vein (principal); N18.6 End stage renal disease; N25.81 Secondary hyperparathyroidism of renal origin; E87.1 Hypo-osmolality and hyponatremia; I13.2 Hypertensive heart and chronic kidney disease with heart failure and with stage 5 chronic kidney disease, or end stage renal disease; I82.611 Acute embolism and thrombosis of superficial veins of right upper extremity; M46.47 Discitis, unspecified, lumbosacral region; I50.9 Heart failure, unspecified; D63.1 Anemia in chronic kidney disease; E87.5 Hyperkalemia; I25.10 Atherosclerotic heart disease of native coronary artery without angina pectoris; J45.909 Unspecified asthma, uncomplicated; F32.A Depression, unspecified; F41.9 Anxiety disorder, unspecified; M46.46 Discitis, unspecified, lumbar region; F17.210 Nicotine dependence, cigarettes, uncomplicated; E11.42 Type 2 diabetes mellitus with diabetic polyneuropathy; E78.5 Hyperlipidemia, unspecified; M25.559 Pain in unspecified hip; G89.4 Chronic pain syndrome; I25.5 Ischemic cardiomyopathy; F12.90 Cannabis use, unspecified, uncomplicated; G47.33 Obstructive sleep apnea (adult) (pediatric); Z82.3 Family history of stroke; Z99.2 Dependence on renal dialysis; Z79.4 Long term (current) use of insulin; Z95.5 Presence of coronary angioplasty implant and graft; Z95.0 Presence of cardiac pacemaker; Z83.3 Family history of diabetes mellitus; Z82.49 Family history of ischemic heart disease and other diseases of the circulatory system; Z79.01 Long term (current) use of anticoagulants; I25.2 Old myocardial infarction; D63.8 Anemia in other chronic diseases classified elsewhere; E11.22 Type 2 diabetes mellitus with diabetic chronic kidney disease
CPT/HCPCS: 36415; 71045; 74178; 80048; 80076; 80202; 82306; 82565; 82607; 82728; 82962; 83036; 83540; 83550; 83605; 83735; 84100; 84443; 85025; 85610; 85730; 87040; 87081; 90935; 93005; 93970; 93971; 96365; 96366; 96367; 96375; 99291; G0378; J1815; J2470

== ENCOUNTER 2025-01-20 23:40 | Inpatient (IN) | payer MEDICARE, MEDICAID ==
[~2025-01-20] VITALS: Ht 172.7 cm; Wt 67.0 kg
[~2025-01-20 23:40] MED LIST changes: +AMLO1TAB23 PO; +APIX5TAB PO; +CARV12.544 PO; +HYDR100T10 PO; +LORA-1123 PO; +TRAZ-228 PO
[2025-01-21] VITALS (9 sets, daily range): BP systolic 136–160; BP diastolic 47–84; PULSE 66–90; RESP 16–20; TEMP 97.5–98.3; O2SAT 96–100
--- NOTE | 2025-01-21 01:20 | ED.PDOC ---
History of Present Illness HPI Comments 54 y/o M is BIBA with c/c of right arm pain. Patient reports onset of pain at night, with most recent episode awakening from his sleep, this morning. Significant history of ESRD w/HD T//WED and current heparin use for right upper extremity DVT following recent [facility] hospital admission discharge. Denial of any chest pain, shortness of breath, numbness, tingling, swelling, discoloration, or further associated symptoms. Chief Complaint: Upper Extremity Time Seen by MD: 23:45 Primary Care Provider: NO CURRENT PRIMARY Reviewed Notes: Nurses Notes, Medications, Allergies Allergies: Coded Allergies: No Known Drug Allergy (Verified Allergy, Unknown, 01/14/25) pt couldn't recall a name of an "antibiotic for pneumonia that caused him itching"' Home Meds Active Scripts Apixaban Base (ELIQUIS) 5 Mg Tab, 5 MG PO BID for 90 Days, #180 TAB Prov:BUSTER BORREGO RESIDENT 01/12/25 Trazodone Hcl (Trazodone Hcl) 150 Mg Tab, 1 TAB PO QPM for 30 Days, #30 TAB 1 Refill Prov:BLAIR SAGE RESIDENT 12/05/24 Ticagrelor Base (Brilinta) 60 Mg Tab, 60 MG PO BID for 30 Days, #60 TAB Prov:BLAIR SAGE RESIDENT 12/05/24 Sevelamer Carbonate (Renvela) 800 Mg Tab, 3 TAB PO TID for 30 Days, #270 TAB 3 Refills Prov:BLAIR SAGE RESIDENT 12/05/24 Nifedipine (Nifedipine Er) 90 Mg Tab, 1 TAB PO DAILY for 30 Days, #30 TAB 5 Refills Prov:BLAIR SAGE RESIDENT 12/05/24 Metoprolol Succinate (Metoprolol Succinate Er) 50 Mg Tab, 1 TAB PO DAILY for 30 Days, #30 TAB 5 Refills Prov:BLAIR SAGE RESIDENT 12/05/24 Insulin Lispro (Insulin Lispro) 100 Unit/Ml Inj, 100 UNIT IJ TID for 30 Days, #3 INJ 2-3 units subcutaneous t.i.d.. Always check your blood glucose before administering insulin, If blood sugar < 60 - have 15-20 g of glucose (8 oz cranberry juice, orange juice, apple juice, small carton of milk) go to the ER/call 911 Prov:BLAIR SAGE RESIDENT 12/05/24 Insulin Glargine (Lantus Solostar) 100 Unit/Ml Inj, 100 UNIT SC QPM for 30 Days, #3 INJ 15 units in the evening. Always check your blood glucose before administering insulin, If blood sugar < 60 - have 15-20 g of glucose (8 oz cranberry juice, orange juice, apple juice, small carton of milk) go to the ER/call 911 Prov:BLAIR SAGE [facility] 12/05/24 Hydralazine HCl (Hydralazine Hydrochloride) 50 Mg Tab, 50 MG PO TID for 30 Days, #90 TAB Prov:BLAIR SAGE [facility] 12/05/24 Folic Acid-Vitamin B6-Vitamin (B Complex/Folic Acid) Tab, 1 CAP OR DAILY for 30 Days, #30 TAB Prov:BLAIR SAGE [facility] 12/05/24 Atorvastatin Calcium (ATORVASTATIN CALCIUM) 40 Mg Tab, 1 TAB PO DAILY for 30 Days, #30 TAB 5 Refills Prov:BLAIR SAGE [facility] 12/05/24 Albuterol Sulfate (Albuterol Sulfate) 0.083 % Neb, 1 VIAL NEB Q4HPRN PRN for 30 Days, #50 VIAL Prov:BLAIR SAGE [facility] 12/05/24 Trazodone HCl (Trazodone Hydrochloride) 50 Mg Tab, 50 MG PO HS for 20 Days, #20 TAB 1 Refill Prov:CELSO HARRIS RESDIENT 08/16/24 Diphenhydramine HCl (Allergy Relief) 25 Mg/10 Ml Liq, 25 MG PO BID for 15 Days, #30 LIQ 1 Refill Prov:CELSO HARRIS RESDIENT 25 Diphenhydramine-Zinc Acetate (Benadryl Cream) 1 Applic Ap, 1 APPLIC TOP Q6HPRN PRN for 30 Days, #120 APPLIC Prov:ALANA CANNON RESIDENT 07/30/23 Acetaminophen (Acetaminophen) 325 Mg Tab, 650 MG PO Q6HP PRN for 30 Days, #240 TAB Prov:ALANA CANNON RESIDENT 07/30/23 Ergocalciferol (VITAMIN D 19466 UNIT) 50,000 [place], [address] UNIT PO Q7D for 30 Days, #10 CAP Prov:ALANA CANNON RESIDENT 07/30/23 Reported Medications Hydrocodone-Acetaminophen (Hydrocodone Bitartrate/AC 10-325 mg) 1 Tab Tab, 1 TAB PO QID, TAB 08/01/24 Lorazepam (ATIVAN TABLET) 0.5 Mg Tb, 1 TAB PO TID PRN for ANXIETY, #90 TAB 10/16/23 Patients Own Medication (PATIENTS OWN MEDICATION) ., 1 PATCH TD DAILY PTS OWN MED-OBTAIN FROM PT AND SEND TO RX DRUG: FREQ: RX# EXP: DATE DISP: TECH: RPH: 10/16/23 Sevelamer Carbonate (Sevelamer Carbonate) 800 Mg Tab, 5 TAB PO TIDWM, TAB 10/16/23 Trazodone Hcl (Trazodone Hcl) 150 Mg Tab, 150 MG PO for for sleep, MG 09/19/23 Information Source: Patient Mode of Arrival: EMS Severity: Moderate Timing: Hours Duration: Since onset Prehospital treatment: None Past Medical History PAST MEDICAL HISTORY: Anxiety, Asthma, CAD, CHF, Depression, DM, ESRD, High L ipids, HTN, [place] Surgical History: Pacemaker, PTCA Family History Family History: Reviewed,noncontributory to illness, Family hx of DM, Family hx of heart razia, Family hx of HTN Social History Smoker: Cigarettes Alcohol: Occasionally Drugs: Cocaine Lives In: Home All Other Systems: Reviewed and Negative (Comprehensive systems review obtained and negative except for what is stated in the HPI.) Physical Exam General Appearance: Moderate Distress HEENT: Normal ENT Inspection, Pharynx Normal, TMs Normal Neck: Full Range of Motion, Non-Tender, Normal, Normal Inspection Respiratory: Chest Non-Tender, Lungs Clear, No Accessory Muscle Use, No Respiratory Distress, Normal Breath Sounds Cardiovascular: No Edema, No JVD, No Murmur, No Gallop, Normal Peripheral Pulses, Regular Rate/Rhythm Breast Exam: Deferred Gastrointestinal: No Organomegaly, Non Tender, No Pulsatile Mass, Normal Bowel Sounds, Soft Genitalia: Deferred Pelvic: Deferred Rectal: Deferred Extremities: No calf tenderness, No pedal edema Musculoskeletal : Apperance: Normal Neurologic: Alert, No Motor Deficits, No Sensory Deficits Cerebellar Function: NOT DONE Reflexes: NOT DONE Skin: Normal Color Peripheral Pulses: 3+ Radial (R), 3+ Radial (L) Lymphatic: No Adenopathy Was a procedure done? Was a procedure done?: No Differential Dx Considerations may include: chronic pain syndrome, upper extremity DVT, neurovascular injury, arthritis, sprain, among others X-Ray, Labs, Meds, VS Vital Signs Date Time Temp Pulse Resp B/P (MAP) Pulse Ox O2 Delivery O2 Flow Rate FiO2 01/20/25 23:47 98.1 95 16 140/82 95 98.1 Patient alert pain Complaining of right upper extremity. History of a blood clot. Vitals stable. He is on dialysis. Recently discharged from this hospital. He is on blood thinner. Reviewed his previous visit. The clot in the right internal jugular vein. From previous dialysis catheter. Continue to monitor. Time of 1ST Reevaluation: 00:15 Reevaluation 1ST: Unchanged Patient Education/Counseling: Diagnosis, Treatment Family Education/Counseling: No Family Present SEPSIS Sepsis Screen Date sepsis recognized/suspect: Jan 21, 2025 Time Sepsis recognized/suspect: 2346 Recent Procedure: No On Antibiotic Therapy: No Respiratory Rate >20: No Heart Rate >90: No Temp<36 C (96.8 F) or >38.3 C: No SBP <90 or MAP <65 mmHG: No New Acute Mental Status Change: No Is the patient on CPAP, BIPAP,: No Physician Orders Troponin-I Hs (01/20/25 23:54) Complete Blood Count (01/20/25 23:54) Chest Portable (01/20/25 23:54) Urinalysis (01/20/25 23:54) Basic Metabolic Panel (01/20/25 23:54) Vital Signs Date Time Temp Pulse Resp B/P (MAP) Pulse Ox O2 Delivery O2 Flow Rate FiO2 01/20/25 23:47 98.1 95 16 140/82 95 98.1 Departure 1 Departure Time of Disposition: 02:06 Impression: Primary Impression: Acute on chronic renal insufficiency Additional Impressions: ESRD (end stage renal disease) DVT (deep venous thrombosis) Qualified Codes: I82.721 - Chronic embolism and thrombosis of deep veins of right upper extremity Disposition: ADMITTED INPATIENT Admit to: Med Surg Condition: Guarded Critical Care Note Critical Care Time?: No Stability Stability form required: No Heart Score Heart Score: Heart Score Response (Comments) Value History N/A 0 EKG N/A 0 Age N/A 0 Risk Factors N/A 0 Troponin N/A 0 Total 0 I personally scribed for RAINE MATTSON MD ([email or web address]) on 01/21/25 at 01:20. Electronically submitted by Amos Bridges ([email or web address]). RAINE MATTSON MD Jan 21, 2025 01:20
--- NOTE | 2025-01-21 02:17 | DVH ---
CHEST RADIOGRAPH Indication: sob Technique: 1 view Comparison: XY CHEST XRAY 1 VIEW on DOS: 01/09/25, XY CHEST XRAY 1 VIEW on DOS: 12/16/24, XY CHEST XRAY 1 VIEW on DOS: 12/01/24, XY CHEST PORTABLE on DOS: 08/14/24, XY CHEST XRAY 1 VIEW on DOS: 07/30/24 FINDINGS: Lines and Tubes: Unchanged left implanted cardiac device positioning. Lungs/Pleura: No focal consolidation, pleural effusion or pneumothorax. Similar perihilar interstitia l opacities likely representing edema. Cardiomediastinum: Unchanged, borderline enlarged heart size. Other: No acute osseous abnormality. IMPRESSION: 1. No acute cardiopulmonary abnormality or significant change from prior exam.
[2025-01-21 02:58] LABS: Hematocrit 31.0 % (41.0-53.0); Hemoglobin 10.4 g/dL (13.5-17.5); Mean Corpuscular Hemoglobin 29.8 pg (28.0-32.0); Mean Corpuscular Volume 89.1 fL (80.0-100.0); Nucleated Red Blood Cells % 0.0 %
[2025-01-21] MEDS ORDERED: NITROGLYCERIN 0.4 MG SL TAB SL PRN (04:15)
[2025-01-21] MEDS ORDERED: VANCOMYCIN PER PHARMACY 0 MG IV SCH (04:30)
[2025-01-21 05:04] LABS: Potassium 4.3 mmol/L (3.5-5.1); Sodium 140 mmol/L (136-145)
[2025-01-21 05:05] LABS: Chloride 97 mmol/L (98-107)
[2025-01-21 05:06] LABS: Anion Gap 13 (5-15); Calcium 9.9 mg/dL (8.7-10.4); Carbon Dioxide 30 mmol/L (20-31)
[2025-01-21] MEDS: InsuLIN REG 1unit/0.01ml Soln (100units/ml) SC ONE (05:10)
[2025-01-21] MEDS: ACCU-CHEK COMFORT CURVE STRIP VI ONE (05:10)
[2025-01-21 05:11] LABS: BUN/Creatinine Ratio 5.0 (10.0-20.0); Glucose 101 mg/dL (74-106)
[2025-01-21] MEDS: DEXTROSE (50%) 50ML SYRG IV ONE (05:11)
[2025-01-21 05:15] LABS: Blood Urea Nitrogen 27 mg/dL (9-23)
[2025-01-21] MEDS: ERGOCALCIFEROL 50,000 UNIT(1.25MG) CAP PO SCH (05:17)
[2025-01-21] MEDS: hydrALAZINE HCL 20 MG/ML VL IV ONE (05:18)
--- NOTE | 2025-01-21 05:49 | DVHHP2 ---
History of Present Illness History of Present Illness Patient is 54-year-old male who was recently diagnosed with right upper extremity DVT, came to the hospital with a chief complaint of severe intractable right upper extremity pain, intensity 10/10, aggravated by movement, slightly L by he use of heating pad. He denies any other complaints including change in the color of the skin, chest pain, shortness of breath, any other symptoms. Patient was also diagnosed with Acute Diskitis Osteomyelitis of L3-4 for which he is receiving vancomycin 1 g daily and ceftriaxone 2 g IV daily. Apart from that patient denying any other symptoms . Past medical history: DVT of right internal jugular vein, cephalic vein, basilic vein, ESRD on hemodialysis with [facility](Wednesday, and Wednesday),Acute Diskitis Osteomyelitis of L3-4, type 2 diabetes mellitus, hypertensive heart disease, hyperlipidemia, normocytic anemia,Coronary artery disease with history of [place] -status post PCI with x 2 GINO, marijuana use, tobacco use, anxiety, acute on chronic systolic heart failure with reduced ejection fraction Past surgical history:2019 LAYER OUT PLATE GLASS-D placement, PCI with a total of two stents placed, last coronary angiogram on 12/2023, AV fistula Family history: Noncontributory Social history: History of cocaine abuse. Denies tobacco, alcohol and other drug abuse (occasionally drinks alcohol) Allergies: Pneumococcal vaccine Home medication: Albuterol as needed, aspirin 81 mg p.o. daily, atorvastatin 40 mg p.o. daily, B complex, hydrocodone as needed, hydralazine 50 mg PO TID, metoprolol 100 mg PO daily, nifedipine 90 mg p.o. daily, sevelamer 400 mg 3 times, ticagrelor 60 mg p.o. b.i.d., trazodone 150 mg p.o. daily, vitamin-D 21776 IU Q seven once. Apixaban 5 mg p.o. b.i.d.. Review of Systems Constitutional: No: Fever, Chills, Sweats, Weakness, Malaise, Other Eyes: No: Pain, Vision change, Conjunctivae inflammation, Eyelid inflammation, Other, Redness ENT: No: Ear pain, Ear discharge, Nose pain, Nose discharge, Nose congestion, Mouth pain, Mouth swelling, Throat pain, Throat swelling, Other Respiratory: No: Cough, Dry, Shortness of breath, SOB with excertion, Wheezing, Hemoptysis, Pleuritic Pain, Sputum, Wheezing, Other Cardiovascular: No: Chest Pain, Palpitations, Orthopnea, Paroxysmal Noc. Dyspnea, Edema, Lt Headedness, Other Gastrointestinal: No: Nausea, Vomiting, Abdominal Pain, Diarrhea, Constipation, Melena, Hematochezia, Other Musculoskeletal: arm pain Skin: No: Rash, Lesions, Jaundice, Bruising, Other Neurological: No: Weakness, Numbness, Incoordination, Change in speech, Confusion, Seizures, Other Allergies: Coded Allergies: No Known Drug Allergy (Verified Allergy, Unknown, 01/14/25) pt couldn't recall a name of an "antibiotic for pneumonia that caused him itching"' Medications Current Medications Medications Dose Ordered Sig/Caroline Route Start Time Stop Time Status Last Admin Dose Admin Nitroglycerin 0.4 mg Q5MINP PRN SL 01/21/25 04:15 Morphine Sulfate 2 mg Q30M PRN IV 01/21/25 04:15 Apixaban 5 mg BID PO 01/21/25 10:00 Ergocalciferol 50,000 unit Q7D PO 01/21/25 04:15 01/21/25 05:17 50,000 UNIT Acetaminophen/ Hydrocodone Bitart 1 tab QID PO 01/21/25 06:00 Metoprolol Succinate 50 mg DAILY PO 01/21/25 10:00 Ticagrelor 60 mg BID PO 01/21/25 10:00 UNV Patient Own Medication 1 tab DAILY PO 01/21/25 10:00 UNV Patient Own Medication 50 mg TID PO 01/21/25 06:00 UNV Patient Own Medication 1 tab DAILY PO 01/21/25 10:00 UNV Patient Own Medication 5 tab TIDWM PO 01/21/25 08:00 UNV Patient Own Medication 1 tab QPM PO 01/21/25 18:00 UNV Cefepime HCl 50 ml @ 12.5 mls/hr DAILY IV 01/21/25 10:00 01/23/25 20:00 Vancomycin HCl 0 ml @ 0 mls/hr UD IV 01/21/25 04:30 01/23/25 20:00 UNV Famotidine 20 mg Q12HR PO 01/21/25 10:00 UNV Exam Vital Signs Vital Signs Date Time Temp Pulse Resp B/P (MAP) Pulse Ox O2 Delivery O2 Flow Rate FiO2 01/21/25 05:22 187/59 01/21/25 04:51 98.3 78 20 98.3 01/21/25 04:51 100 Room Air* 0 21 General Appearance: Alert, Oriented X3, Cooperative, No acute distress HEENT: Atraumatic, PERRLA, EOMI Respiratory: Clear to auscultation, Normal air movement Cardiovascular: Regular rate, Normal S1, Normal S2, No murmurs, Gallops Abdominal: Normal bowel sounds, Soft, No tenderness, No hepatospenomegaly Extremities: Other (Right upper arm tenderness, presence of radial pulse.) Skin: No rashes, No breakdown, No significant lesion Neuro: Normal gait, Normal speech, Strength at 5/5 X4 ext Psych/Mental Status: Mood NL Labs/Xrays Labs Test 01/21/25 02:15 Range/Units White Blood Count 6.2 # 4.4-10.8 10^3/uL Red Blood Count 3.47 L 4.5-5.90 10^6/uL Hemoglobin 10.4 L 13.5-17.5 g/dL Hematocrit 31.0 L 41.0-53.0 % Mean Corpuscular Volume 89.1 80.0-100.0 fL Mean Corpuscular Hemoglobin 29.8 28.0-32.0 pg Mean Corpuscular Hemoglobin Concent 33.5 32.0-36.0 g/dL Red Cell Distribution Width 16.6 H 11.8-14.3 % Platelet Count 242 140-450 10^3/uL Mean Platelet Volume 8.3 6.9-10.8 fL Neutrophils (%) (Auto) 74.9 37.0-80.0 % Lymphocytes (%) (Auto) 9.1 L 10.0-50.0 % Monocytes (%) (Auto) 10.1 0.0-12.0 % Eosinophils (%) (Auto) 5.0 0.0-7.0 % Basophils (%) (Auto) 0.9 0.0-2.0 % Neutrophils # (Auto) 4.7 1.6-8.6 10 ^3/uL Lymphocytes # (Auto) 0.6 0.4-5.4 10 ^3/uL Monocytes # (Auto) 0.6 0-1.3 10 ^3/uL Eosinophils # (Auto) 0.3 0-0.8 10 ^3/uL Basophils # (Auto) 0.1 0-0.2 10 ^3/uL Nucleated Red Blood Cells 0.0 % Sodium Level 140 # 136-145 mmol/L Potassium Level 4.3 3.5-5.1 mmol/L Chloride Level 97 L 98-107 mmol/L Carbon Dioxide Level 30 20-31 mmol/L Anion Gap 13 5-15 Blood Urea Nitrogen 27 H 9-23 mg/dL Creatinine 5.36 H 0.700-1.30 mg/dL Glomerular Filtration Rate Calc 12 >90 mL/min BUN/Creatinine Ratio 5.0 L 10.0-20.0 Serum Glucose 101 74-106 mg/dL Calcium Level 9.9 8.7-10.4 mg/dL Troponin I High Sensitivity 21 </=54 ng/L SEPSIS Sepsis Screen Date sepsis recognized/suspect: Jan 21, 2025 Time Sepsis recognized/suspect: 453 Recent Procedure: No On Antibiotic Therapy: No Respiratory Rate >20: No Heart Rate >90: No Temp<36 C (96.8 F) or >38.3 C: No SBP <90 or MAP <65 mmHG: No New Acute Mental Status Change: No Is the patient on CPAP, BIPAP,: No Physician Orders Chest Portable (01/20/25 23:54) Urinalysis (01/20/25 23:54) Admit (01/21/25 04:07) Nitroglycerin Sublingual (Ntrostat Subli (01/21/25 04:15) Morphine Sulfate Injection (01/21/25 04:15) Oxygen By Nasal Cannula (01/21/25 04:07) Stat Ekg For Chest Pain (01/21/25 04:07) Notify Md Of Changes From Base (01/21/25 04:07) Slabbing Machine Operator For 24 Hours (01/21/25 04:07) Emergency Dysrhythmia Protocol (01/21/25 04:07) Rhythm Strips Once Every Shift (01/21/25 04:07) Apixaban (Eliquis) (01/21/25 10:00) Ergocalciferol (Vitamin D 50,000 Unit) (01/21/25 04:15) Hydrocodone-Acet 10/325mg Tab ([place] 10/ (01/21/25 06:00) Metoprolol Xl Succinate (Toprol Xl) (01/21/25 10:00) Ticagrelor (Brilinta) (01/21/25 10:00) (Nf) Atorvastatin Calcium (01/21/25 10:00) (Nf) Hydralazine Hcl (Hydralazine Hydroc (01/21/25 06:00) (Nf) Nifedipine (Nifedipine Er) (01/21/25 10:00) (Nf) Sevelamer Carbonate (01/21/25 08:00) (Nf) Trazodone Hcl (01/21/25 18:00) Electrocardigram (01/21/25 04:15) *Dr. Rhonda Delarosa -Reg [place] (01/21/25 04:15) Consistent Carb(Ccho)Diabetes (01/21/25 Breakfast) Cefepime 1gm/50ml (Maxipime 1gm/50ml) (01/21/25 10:00) Vancomycin Per Pharmacy (01/21/25 04:30) Famotidine Tablet (Pepcid Tablet) (01/21/25 10:00) Vancomycin 1.5gm/250ml (Vancomycin [place] (01/21/25 05:45) Vital Signs Date Time Temp Pulse Resp B/P (MAP) Pulse Ox O2 Delivery O2 Flow Rate FiO2 01/21/25 05:22 187/59 01/21/25 04:51 98.3 78 20 187/59 (101) 98.3 01/21/25 04:51 78 20 100 Room Air* 0 21 01/20/25 23:47 98.1 95 16 140/82 95 98.1 Laboratory Tests Test 01/21/25 02:15 White Blood Count 6.2 10^3/uL (4.4-10.8) # Medications Medications Dose Ordered Sig/Caroline Route Start Time Stop Time Status Last Admin Dose Admin Diagnostic Test (Pha) 1 strip ONCE ONCE 01/21/25 04:30 01/21/25 04:31 DC 01/21/25 05:10 1 STRIP Ergocalciferol 50,000 unit Q7D PO 01/21/25 04:15 01/21/25 05:17 50,000 UNIT Hydralazine HCl 15 mg ONCE ONCE IV 01/21/25 05:00 01/21/25 05:01 DC 01/21/25 05:22 15 MG Assessment/Plan Assessment/Plan # Acute Diskitis Osteomyelitis of L3-4 -continue vancomycin 1 g and ceftriaxone 2 g IV daily -last dose on 02/02/2025 #DVT of Right Internal Jugular Vein, Cephalic Vein, and Basilic vein -Duplex US Upper Extremity: Deep venous thrombosis in the right internal jugular vein, basilic vein, cephalic vein -continue Eliquis 5 mg p.o. b.i.d. -pain management with [place], morphine. Heat pad as needed. #ESRD on Hemodialysis -Monitor renal function and electrolytes -Sevelamer 800 mg PO TID -Vitamin D 78658 units PO q7d -Renal diet/cardiac diet -nephrology consultation with Joseline delarosa # uncontrolled hypertension -hydralazine 50 mg p.o. t.i.d. -nifedipine 30 mg p.o. daily -metoprolol XL succinate 50 mg p.o. daily. #Type 2 Diabetes Mellitus, HbA1c 6.0% on 01/09/2025 -Mild SSI -Accu-cheks #Hyperlipidemia -Atorvastatin 40 mg PO HS # anemia of chronic disease -Monitor H&H -goal hemoglobin greater than 10 -EPA as needed #Coronary artery disease with history of [place] -status post PCI with x 2 GINO Ischemic cardiomyopathy status post LAYER OUT PLATE GLASS-D. No acute chest pain. -Brilinta 60 mg PO BID Diet: Renal/cardiac GI prophylaxis: Famotidine 20 mg p.o. b.i.d. DVT prophylaxis: On Eliquis Goals of care discussed greater than 24 minutes, full code status. Plan discussed with Dr. Baron Plan discussed with: Patient, Other My Orders Orders - BRIDGER KAUR RESIDENT Procedure Category Date Status Time Admit ADMIT 01/21/25 Transmitted 04:07 Nitroglycerin PHA 01/21/25 In Process Sublingual (Ntrostat 04:15 Morphine Sulfate PHA 01/21/25 In Process Injection 04:15 Oxygen By Nasal RT 01/21/25 Transmitted Cannula 04:07 Stat Ekg For Chest JADE 01/21/25 In Process Pain 04:07 Notify Of Changes JADE 01/21/25 In Process From Base 04:07 Slabbing Machine Operator For JADE 01/21/25 In Process 24 Hours 04:07 Emergency Dysrhythmia JADE 01/21/25 In Process Protocol 04:07 Rhythm Strips Once JADE 01/21/25 In Process Every Shift 04:07 Apixaban (Eliquis) PHA 01/21/25 In Process 10:00 Ergocalciferol PHA 01/21/25 In Process (Vitamin D 50,000 04:15 Hydrocodone-Acet PHA 01/21/25 In Process 10/325mg Tab ([place] 06:00 Metoprolol Xl PHA 01/21/25 In Process Succinate (Toprol Xl) 10:00 Ticagrelor (Brilinta) PHA 01/21/25 Pending 10:00 (Nf) Atorvastatin PHA 01/21/25 Pending Calcium 10:00 (Nf) Hydralazine Hcl PHA 01/21/25 Pending (Hydralazine Hydroc 06:00 (Nf) Nifedipine PHA 01/21/25 Pending (Nifedipine Er) 10:00 (Nf) Sevelamer PHA 01/21/25 Pending Carbonate 08:00 (Nf) Trazodone Hcl PHA 01/21/25 Pending 18:00 Electrocardigram EKG 01/21/25 Logged 04:15 *Dr. Rhonda Delarosa -Da CONS 01/21/25 Transmitted [place] 04:15 Consistent DIET 01/21/25 Transmitted Carb(Ccho)Diabetes Breakfast Cefepime 1gm/50ml PHA 01/21/25 In Process (Maxipime 1gm/50ml) 10:00 Vancomycin Per PHA 01/21/25 Pending Pharmacy 04:30 Famotidine Tablet PHA 01/21/25 Pending (Pepcid Tablet) 10:00 Vancomycin PHA 01/21/25 In Process 1.5gm/250ml 05:45 Date of Service: Jan 21, 2025 Billing Provider: JESSY MORA MD Common Visit Codes: 71927-[id number] INP/OBS CARE (HIGH) Secondary Visit Codes: 90960-[id number] CARE PLAN 30 MINUTES BRIDGER KAUR Jan 21, 2025 05:49
[2025-01-21] MEDS: HYDROcodone-ACET 10/325MG TAB PO SCH (05:58)
[2025-01-21] MEDS: VANCOMYCIN 1.5GM/250ML IV ONE (05:59)
[2025-01-21] MEDS ORDERED: HYDRALAZINE HCL 50 MG PO SCH (06:00)
[2025-01-21] MEDS: SEVELAMER 800 MG TAB PO SCH (08:00)
[2025-01-21] MEDS ORDERED: SEVELAMER CARBONATE PO SCH (08:00)
[2025-01-21] MEDS: APIXABAN 5 MG TAB PO SCH (09:42)
[2025-01-21] MEDS: METOPROLOL SUCCINATE XL 50 MG TAB PO SCH (09:44)
[2025-01-21] MEDS: CEFEPIME 1GM/50ML 50 ML IV ONE (09:44)
[2025-01-21] MEDS ORDERED: PATIENTS OWN MEDICATION (Atorvastatin Calcium 1 TAB) PO SCH (10:00)
[2025-01-21] MEDS ORDERED: FAMOTIDINE 20 MG TAB PO SCH (10:00)
[2025-01-21] MEDS ORDERED: PATIENTS OWN MEDICATION (Nifedipine (Nifedipine Er) 1 TAB) PO SCH (10:00)
[2025-01-21] MEDS: TICAGRELOR 60 MG TAB PO SCH (11:09)
--- NOTE | 2025-01-21 11:27 | DVHPN2 ---
Progress Note - Dictate Date Seen: Jan 21, 2025 Has the PT tested + for MRSA If YES, has PT been informed?: No Medical Necessity Reason Pt with a Central, PICC or Fol: No Subjective Patient was discharged a few days ago, comes back complaining of severe pain in her right arm, he is asking for [place], he says he was told he has "2 blood clots" there he had HD at the clinic yesterday Denies chest pain or dyspnea vital signs Vital Sign Date Time Temp Pulse Resp B/P (MAP) Pulse Ox O2 Delivery O2 Flow Rate FiO2 01/21/25 09:44 74 160/75 01/21/25 08:55 98.0 17 96 98.0 01/21/25 05:26 Room Air* 0 21 medications Current Medications Medications Dose Ordered Sig/Caroline Route Start Time Stop Time Status Last Admin Dose Admin Nitroglycerin 0.4 mg Q5MINP PRN SL 01/21/25 04:15 Morphine Sulfate 2 mg Q30M PRN IV 01/21/25 04:15 Apixaban 5 mg BID PO 01/21/25 10:00 01/21/25 09:42 5 MG Ergocalciferol 50,000 unit Q7D PO 01/21/25 04:15 01/21/25 05:17 50,000 UNIT Acetaminophen/ Hydrocodone Bitart 1 tab QID PO 01/21/25 06:00 01/21/25 11:08 1 TAB Metoprolol Succinate 50 mg DAILY PO 01/21/25 10:00 01/21/25 09:44 50 MG Ticagrelor 60 mg BID PO 01/21/25 10:00 01/21/25 11:09 60 MG Patient Own Medication 1 tab DAILY PO 01/21/25 10:00 UNV Patient Own Medication 50 mg TID PO 01/21/25 06:00 UNV Patient Own Medication 1 tab DAILY PO 01/21/25 10:00 UNV Patient Own Medication 5 tab TIDWM PO 01/21/25 08:00 UNV Patient Own Medication 1 tab QPM PO 01/21/25 18:00 UNV Vancomycin HCl 0 ml @ 0 mls/hr UD IV 01/21/25 04:30 01/23/25 20:00 Famotidine 20 mg Q12HR PO 01/21/25 10:00 UNV Atorvastatin Calcium 40 mg HS PO 01/21/25 22:00 Hydralazine HCl 50 mg TID PO 01/21/25 14:00 Sevelamer HCl 4,000 mg TIDWM PO 01/21/25 08:00 Trazodone HCl 150 mg QPM PO 01/21/25 18:00 Nifedipine 90 mg DAILY PO 01/21/25 10:00 01/21/25 09:43 90 MG Cefepime HCl 0.5 gm DAILY@POSTDI IV 01/22/25 08:45 objective Chronically ill, pale NAD He was sleeping but rthen woke up and asked for pain medicicine Lungs CTA CV: RR, S4 gallop is present Abdomen: soft, non tender, normal intensity BS No leg edema Right arm has no edema, erythema or visible lesions Neuro: WNL laboratory and microbiology Laboratory Tests 01/21/25 02:15 Test 01/21/25 02:15 Range/Units Serum Glucose 101 74-106 mg/dL Assessment/Plan 1. Stable ESRD, no electrolyte imbalances 2. HTN 3, Anemia of CKD 4. Right arm pain, no clinical evidence of source of pain 5. Chronic pain, narcotic seeking behavior No urgent need for HD today Will continue with TTS schedule Resume home meds Psych consult Plan discussed with: Patient KLELY CARTER MD Jan 21, 2025 11:27
--- NOTE | 2025-01-21 13:37 | DVHPN2 ---
Reviewed: Care Plan, H&P, Labs, Medications, Previous Orders, Radiology Changes from previous H/P or p: No Changes Eyes: No Pain, No Vision change, No Conjunctivae inflammation, No Eyelid inflammation, No Other, No Redness ENT: No Ear pain, No Ear discharge, No Nose pain, No Nose discharge, No Nose congestion, No Mouth pain, No Mouth swelling, No Throat pain, No Throat swelling, No Other Cardiovascular: No Chest Pain, No Palpitations, No Orthopnea, No Paroxysmal Noc. Dyspnea, No Edema, No Lt Headedness, No Other Respiratory: No Cough, No Dry, No Shortness of breath, No SOB with excertion, No Wheezing, No Hemoptysis, No Pleuritic Pain, No Sputum, No Other Gastrointestinal: No Nausea, No Vomiting, No Abdominal Pain, No Diarrhea, No Constipation, No Melena, No Hematochezia, No Other Musculoskeletal: arm pain Skin: No Rash, No Lesions, No Jaundice, No Bruising, No Other Objective Vitals Vital Signs Date Time Temp Pulse Resp B/P (MAP) Pulse Ox O2 Delivery O2 Flow Rate FiO2 01/21/25 09:44 74 160/75 01/21/25 08:55 98.0 17 96 98.0 01/21/25 05:26 Room Air* 0 21 Medications Current Medications Medications Dose Ordered Sig/Caroline Route Start Time Stop Time Status Last Admin Dose Admin Nitroglycerin 0.4 mg Q5MINP PRN SL 01/21/25 04:15 Morphine Sulfate 2 mg Q30M PRN IV 01/21/25 04:15 Apixaban 5 mg BID PO 01/21/25 10:00 01/21/25 09:42 5 MG Ergocalciferol 50,000 unit Q7D PO 01/21/25 04:15 01/21/25 05:17 50,000 UNIT Acetaminophen/ Hydrocodone Bitart 1 tab QID PO 01/21/25 06:00 01/21/25 11:08 1 TAB Metoprolol Succinate 50 mg DAILY PO 01/21/25 10:00 01/21/25 09:44 50 MG Ticagrelor 60 mg BID PO 01/21/25 10:00 01/21/25 11:09 60 MG Patient Own Medication 1 tab DAILY PO 01/21/25 10:00 UNV Patient Own Medication 50 mg TID PO 01/21/25 06:00 UNV Patient Own Medication 1 tab DAILY PO 01/21/25 10:00 UNV Patient Own Medication 5 tab TIDWM PO 01/21/25 08:00 UNV Patient Own Medication 1 tab QPM PO 01/21/25 18:00 UNV Vancomycin HCl 0 ml @ 0 mls/hr UD IV 01/21/25 04:30 01/23/25 20:00 Famotidine 20 mg Q12HR PO 01/21/25 10:00 UNV Atorvastatin Calcium 40 mg HS PO 01/21/25 22:00 Hydralazine HCl 50 mg TID PO 01/21/25 14:00 Sevelamer HCl 4,000 mg TIDWM PO 01/21/25 08:00 01/21/25 12:00 4,000 MG Trazodone HCl 150 mg QPM PO 01/21/25 18:00 Nifedipine 90 mg DAILY PO 01/21/25 10:00 01/21/25 09:43 90 MG Cefepime HCl 0.5 gm DAILY@POSTDI IV 01/22/25 08:45 Laboratory Results Laboratory Tests 01/21/25 02:15 Chemistry Test 01/21/25 02:15 Calcium Level 9.9 mg/dL (8.7-10.4) Labs and/or images reviewed: Labs reviewed by me, Image(s) reviewed by me Assessment/Plan Assessment/Plan # Acute Diskitis Osteomyelitis of L3-4 -continue vancomycin 1 g and ceftriaxone 2 g IV daily -last dose on 02/02/2025 #DVT of Right Internal Jugular Vein, Cephalic Vein, and Basilic vein -Duplex US Upper Extremity: Deep venous thrombosis in the right internal jugular vein, basilic vein, cephalic vein -continue Eliquis 5 mg p.o. b.i.d. Morphine 2 mg IV q.4 hours scheduled #ESRD on Hemodialysis -Monitor renal function and electrolytes -Sevelamer 800 mg PO TID -Vitamin D 96885 units PO q7d -Renal diet/cardiac diet -nephrology consultation with Joseline delarosa # uncontrolled hypertension -hydralazine 50 mg p.o. t.i.d. -nifedipine 30 mg p.o. daily -metoprolol XL succinate 50 mg p.o. daily. 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 No acute chest pain. -Brilinta 60 mg PO BID Time Spent 70 minutes Advanced care planning time 20 minutes Patient is full code Recently discharged from this hospital to [facility] post acute on 01/14/2025 Plan discussed with: Patient Date of Service: Jan 21, 2025 Billing Provider: RONEN ALVARES MD Common Visit Codes: [id number] CARE 30-74 MIN RONEN ALVARES MD Jan 21, 2025 13:37
[2025-01-21] MEDS: MORPHINE SULFATE INJ 2 MG/ml SYRG IV PRN (14:19)
[2025-01-21] MEDS ORDERED: PATIENTS OWN MEDICATION (Trazodone Hcl 1 TAB) PO SCH (18:00)
[2025-01-21] MEDS: MORPHINE SULFATE 4 MG/ML SYR/VIAL IV SCH (18:10)
[2025-01-21] MEDS: ATORVASTATIN 20 MG TAB PO SCH (22:09)
[2025-01-22] VITALS (8 sets, daily range): BP systolic 124–157; BP diastolic 38–95; PULSE 60–86; RESP 17–18; TEMP 97.8–98.1; O2SAT 95–98
[2025-01-22 04:21] LABS: Hematocrit 28.4 % (41.0-53.0); Hemoglobin 9.5 g/dL (13.5-17.5); Mean Corpuscular Hemoglobin 29.6 pg (28.0-32.0); Mean Corpuscular Volume 88.7 fL (80.0-100.0); Nucleated Red Blood Cells % 0.0 %
[2025-01-22] MEDS: MORPHINE SULFATE 4 MG/ML SYR/VIAL IV SCH (08:14)
--- NOTE | 2025-01-22 13:48 | DVHPN2 ---
Reviewed: Care Plan, H&P, Labs, Medications, Previous Orders, Radiology Changes from previous H/P or p: No Changes Eyes: No Pain, No Vision change, No Conjunctivae inflammation, No Eyelid inflammation, No Other, No Redness ENT: No Ear pain, No Ear discharge, No Nose pain, No Nose discharge, No Nose congestion, No Mouth pain, No Mouth swelling, No Throat pain, No Throat swelling, No Other Cardiovascular: No Chest Pain, No Palpitations, No Orthopnea, No Paroxysmal Noc. Dyspnea, No Edema, No Lt Headedness, No Other Respiratory: No Cough, No Dry, No Shortness of breath, No SOB with excertion, No Wheezing, No Hemoptysis, No Pleuritic Pain, No Sputum, No Other Gastrointestinal: No Nausea, No Vomiting, No Abdominal Pain, No Diarrhea, No Constipation, No Melena, No Hematochezia, No Other Musculoskeletal: arm pain Skin: No Rash, No Lesions, No Jaundice, No Bruising, No Other Objective Vitals Vital Signs Date Time Temp Pulse Resp B/P (MAP) Pulse Ox O2 Delivery O2 Flow Rate FiO2 01/22/25 12:16 73 17 157/77 01/22/25 09:41 97.8 96 97.8 01/22/25 08:05 Room Air* 0 21 Intake/Output Intake and Output 01/22/25 07:00 Intake Total 900 ml Balance 900 ml Intake Oral 900 ml Medications Current Medications Medications Dose Ordered Sig/Caroline Route Start Time Stop Time Status Last Admin Dose Admin Nitroglycerin 0.4 mg Q5MINP PRN SL 01/21/25 04:15 Morphine Sulfate 2 mg Q30M PRN IV 01/21/25 04:15 01/21/25 14:19 2 MG Apixaban 5 mg BID PO 01/21/25 10:00 01/22/25 10:29 5 MG Ergocalciferol 50,000 unit Q7D PO 01/21/25 04:15 01/21/25 05:17 50,000 UNIT Metoprolol Succinate 50 mg DAILY PO 01/21/25 10:00 01/22/25 10:31 50 MG Ticagrelor 60 mg BID PO 01/21/25 10:00 01/22/25 10:29 60 MG Patient Own Medication 1 tab DAILY PO 01/21/25 10:00 UNV Patient Own Medication 50 mg TID PO 10/5/25 06:00 UNV Patient Own Medication 1 tab DAILY PO 01/21/25 10:00 UNV Patient Own Medication 5 tab TIDWM PO 01/21/25 08:00 UNV Patient Own Medication 1 tab QPM PO 01/21/25 18:00 UNV Vancomycin HCl 0 ml @ 0 mls/hr UD IV 01/21/25 04:30 01/23/25 20:00 Famotidine 20 mg POSTDI PO 01/21/25 10:00 Atorvastatin Calcium 40 mg HS PO 01/21/25 22:00 01/21/25 22:09 40 MG Hydralazine HCl 50 mg TID PO 01/21/25 14:00 01/22/25 06:12 50 MG Sevelamer HCl 4,000 mg TIDWM PO 01/21/25 08:00 01/22/25 12:13 4,000 MG Trazodone HCl 150 mg QPM PO 01/21/25 18:00 01/21/25 18:51 150 MG Nifedipine 90 mg DAILY PO 01/21/25 10:00 01/22/25 10:30 90 MG Morphine Sulfate 2 mg Q4H IV 01/22/25 08:00 01/22/25 12:16 2 MG Cefepime HCl 0.5 gm/Dextrose 50 ml @ 12.5 mls/hr HS IV 01/22/25 22:00 Laboratory Results Laboratory Tests 01/21/25 02:15 01/22/25 03:17 Microbiology Microbiology Date/Time Source Procedure Growth Status 01/21/25 06:20 Nose MRSA Screen - Final Complete Labs and/or images reviewed: Labs reviewed by me, Image(s) reviewed by me Assessment/Plan Assessment/Plan # Acute Diskitis Osteomyelitis of L3-4 -continue vancomycin 1 g and ceftriaxone 2 g IV daily -last dose on 02/02/2025 #DVT of Right Internal Jugular Vein, Cephalic Vein, and Basilic vein -Duplex US Upper Extremity: Deep venous thrombosis in the right internal jugular vein, basilic vein, cephalic vein -continue Eliquis 5 mg p.o. b.i.d. Morphine 2 mg IV q.4 hours scheduled #ESRD on Hemodialysis -Monitor renal function and electrolytes -Sevelamer 800 mg PO TID -Vitamin D 79948 units PO q7d -Renal diet/cardiac diet -nephrology consultation with Joseline delarosa # uncontrolled hypertension -hydralazine 50 mg p.o. t.i.d. -nifedipine 30 mg p.o. daily -metoprolol XL succinate 50 mg p.o. daily. 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 No acute chest pain. -Brilinta 60 mg PO BID Time Spent 70 minutes Advanced care planning time 20 minutes Patient is full code Recently discharged from this hospital to [facility] post acute on 01/14/2025 Continue current management Plan discussed with: Patient My Orders Orders - RONEN ALVARES MD Procedure Category Date Status Time Morphine Sulfate PHA 01/22/25 In Process Injection 08:00 Date of Service: Jan 22, 2025 Billing Provider: RONEN ALVARES MD Common Visit Codes: [id number] INP/OBS CARE(HIGH) RONEN ALVARES MD Jan 22, 2025 13:48
--- NOTE | 2025-01-22 14:30 | DVH ---
RIGHT Upper Extremity Venous Duplex Clinical History: Rule out DVT Comparison: US BILAT LOWER DVT on DOS: 01/12/25, US RT UPPER DVT on DOS: 01/09/25, US LT UPPER DVT on D OS: 10/15/23, US BILAT LOWER DVT on DOS: 08/23/22, LUDVT on DOS: 10/31/21 Technique: Duplex doppler evaluation of the venous system of the RIGHT lower neck and upper extremity including color doppler and spectral/pulsed waveform analysis was performed. Findings: The internal jugular vein demonstrates non occlusive thrombus. The subclavian vein is patent on color Doppler evaluation without intraluminal thrombus and demonstra laurie waveform variability. The visualized portion of the brachiocephalic vein is patent on color Doppler evaluation without intr aluminal thrombus and demonstrates waveform variability. The axillary vein demonstrates appropriate compressibility and waveform variability. The brachial veins demonstrate appropriate compressibility and patency on Doppler evaluation. The basilic vein demonstrates appropriate compressibility and patency on Doppler evaluation. The cephalic vein demonstrates non occlusive thrombus. Impression: Residual non-occlusive thrombus within the right internal jugular and cephalic veins.
--- NOTE | 2025-01-22 17:57 | DVHPN2 ---
Progress Note - Dictate Date Seen: Jan 22, 2025 Has the PT tested + for MRSA If YES, has PT been informed?: No Medical Necessity Reason Pt with a Central, PICC or Fol: No Subjective no new symptoms still complains of right arm pain vital signs Vital Sign Date Time Temp Pulse Resp B/P (MAP) Pulse Ox O2 Delivery O2 Flow Rate FiO2 01/22/25 16:41 78 15 144/80 01/22/25 14:16 97.8 95 97.8 01/22/25 08:05 Room Air* 0 21 Total Intake and Output 01/21/25 01/21/25 01/22/25 15:00 23:00 07:00 Intake Total 700 ml 200 ml Balance 700 ml 200 ml medications Current Medications Medications Dose Ordered Sig/Caroline Route Start Time Stop Time Status Last Admin Dose Admin Nitroglycerin 0.4 mg Q5MINP PRN SL 01/21/25 04:15 Morphine Sulfate 2 mg Q30M PRN IV 01/21/25 04:15 01/21/25 14:19 2 MG Apixaban 5 mg BID PO 01/21/25 10:00 01/22/25 10:29 5 MG Ergocalciferol 50,000 unit Q7D PO 01/21/25 04:15 01/21/25 05:17 50,000 UNIT Metoprolol Succinate 50 mg DAILY PO 01/21/25 10:00 01/22/25 10:31 50 MG Ticagrelor 60 mg BID PO 01/21/25 10:00 01/22/25 10:29 60 MG Patient Own Medication 1 tab DAILY PO 01/21/25 10:00 UNV Patient Own Medication 50 mg TID PO 01/21/25 06:00 UNV Patient Own Medication 1 tab DAILY PO 01/21/25 10:00 UNV Patient Own Medication 5 tab TIDWM PO 01/21/25 08:00 UNV Patient Own Medication 1 tab QPM PO 01/21/25 18:00 UNV Vancomycin HCl 0 ml @ 0 mls/hr UD IV 01/21/25 04:30 01/23/25 20:00 Famotidine 20 mg POSTDI PO 01/21/25 10:00 Atorvastatin Calcium 40 mg HS PO 01/21/25 22:00 01/21/25 22:09 40 MG Hydralazine HCl 50 mg TID PO 01/21/25 14:00 01/22/25 14:48 50 MG Sevelamer HCl 4,000 mg TIDWM PO 01/21/25 08:00 01/22/25 12:13 4,000 MG Trazodone HCl 150 mg QPM PO 01/21/25 18:00 01/21/25 18:51 150 MG Nifedipine 90 mg DAILY PO 01/21/25 10:00 01/22/25 10:30 90 MG Morphine Sulfate 2 mg Q4H IV 01/22/25 08:00 01/22/25 16:11 2 MG Cefepime HCl 0.5 gm/Dextrose 50 ml @ 12.5 mls/hr HS IV 01/22/25 22:00 Lactulose 30 ml BID PO 01/22/25 22:00 objective Chronically ill, pale NAD He was sleeping but rthen woke up and asked for pain medicicine Lungs CTA CV: RR, S4 gallop is present Abdomen: soft, non tender, normal intensity BS No leg edema Right arm has no edema, erythema or visible lesions Neuro: WNL laboratory and microbiology Laboratory Tests 01/22/25 03:17 01/21/25 02:15 Test 01/21/25 02:15 Range/Units Serum Glucose 101 74-106 mg/dL Assessment/Plan Assessment/Plan 1. Stable ESRD, no electrolyte imbalances 2. HTN 3, Anemia of CKD 4. Right arm pain, no clinical evidence of source of pain 5. Chronic pain Plan: Next HD Wednesday Will continue with TTS schedule Sevelamer with meals Plan discussed with: Patient BHAVESH MCDONNELL MD Jan 22, 2025 17:57
[2025-01-22] MEDS: SEVELAMER 800 MG TAB PO SCH (18:20)
[2025-01-22] MEDS: LACTULOSE 20Gm/30ML SOLN PO SCH (21:22)
[2025-01-22] MEDS ORDERED: CEFEPIME 0.5 GM in D5W 5% 50 ML IV SCH (22:00)
[2025-01-23] VITALS (8 sets, daily range): BP systolic 120–160; BP diastolic 61–82; PULSE 68–86; RESP 17–18; TEMP 97.8–98.1; O2SAT 94–98
[2025-01-23] MEDS ORDERED: SODIUM CHL 0.9% 1000 ML BAG XX ONE (07:00)
--- NOTE | 2025-01-23 13:20 | DVHPN2 ---
Reviewed: Care Plan, H&P, Labs, Medications, Previous Orders, Radiology Changes from previous H/P or p: No Changes Eyes: No Pain, No Vision change, No Conjunctivae inflammation, No Eyelid inflammation, No Other, No Redness ENT: No Ear pain, No Ear discharge, No Nose pain, No Nose discharge, No Nose congestion, No Mouth pain, No Mouth swelling, No Throat pain, No Throat swelling, No Other Cardiovascular: No Chest Pain, No Palpitations, No Orthopnea, No Paroxysmal Noc. Dyspnea, No Edema, No Lt Headedness, No Other Respiratory: No Cough, No Dry, No Shortness of breath, No SOB with excertion, No Wheezing, No Hemoptysis, No Pleuritic Pain, No Sputum, No Other Gastrointestinal: No Nausea, No Vomiting, No Abdominal Pain, No Diarrhea, No Constipation, No Melena, No Hematochezia, No Other Musculoskeletal: arm pain Skin: No Rash, No Lesions, No Jaundice, No Bruising, No Other Objective Vitals Vital Signs Date Time Temp Pulse Resp B/P (MAP) Pulse Ox O2 Delivery O2 Flow Rate FiO2 01/23/25 09:33 123/83 01/23/25 09:33 78 01/23/25 08:40 18 01/23/25 08:30 98.0 96 98.0 01/23/25 08:15 Room Air* 0 21 Intake/Output Intake and Output 01/23/25 07:00 Intake Total 1250 ml Balance 1250 ml Intake Oral 1250 ml Medications Current Medications Medications Dose Ordered Sig/Caroline Route Start Time Stop Time Status Last Admin Dose Admin Nitroglycerin 0.4 mg Q5MINP PRN SL 01/21/25 04:15 Morphine Sulfate 2 mg Q30M PRN IV 01/21/25 04:15 01/21/25 14:19 2 MG Apixaban 5 mg BID PO 01/21/25 10:00 01/23/25 09:33 5 MG Ergocalciferol 50,000 unit Q7D PO 01/21/25 04:15 01/21/25 05:17 50,000 UNIT Metoprolol Succinate 50 mg DAILY PO 01/21/25 10:00 01/23/25 09:33 50 MG Ticagrelor 60 mg BID PO 01/21/25 10:00 01/23/25 09:33 60 MG Patient Own Medication 1 tab DAILY PO 01/21/25 10:00 UNV Patient Own Medication 50 mg TID PO 01/21/25 06:00 UNV Patient Own Medication 1 tab DAILY PO 01/21/25 10:00 UNV Patient Own Medication 5 tab TIDWM PO 01/21/25 08:00 UNV Patient Own Medication 1 tab QPM PO 01/21/25 18:00 UNV Vancomycin HCl 0 ml @ 0 mls/hr UD IV 01/21/25 04:30 02/02/25 04:29 Famotidine 20 mg POSTDI PO 01/21/25 10:00 Atorvastatin Calcium 40 mg HS PO 01/21/25 22:00 01/22/25 21:20 40 MG Hydralazine HCl 50 mg TID PO 01/21/25 14:00 01/22/25 21:21 50 MG Trazodone HCl 150 mg QPM PO 01/21/25 18:00 01/22/25 18:20 150 MG Nifedipine 90 mg DAILY PO 01/21/25 10:00 01/23/25 09:33 90 MG Morphine Sulfate 2 mg Q4H IV 01/22/25 08:00 01/23/25 08:10 2 MG Lactulose 30 ml BID PO 01/22/25 22:00 01/23/25 09:33 30 ML Sevelamer HCl 3,200 mg TIDWM PO 01/22/25 18:00 01/23/25 12:20 3,200 MG Cefepime HCl 0.5 gm/Dextrose 50 ml @ 12.5 mls/hr HS IV 01/23/25 22:00 Laboratory Results Laboratory Tests 01/21/25 02:15 01/22/25 03:17 01/23/25 06:38 Microbiology Microbiology Date/Time Source Procedure Growth Status 01/21/25 06:20 Nose MRSA Screen - Final Complete Labs and/or images reviewed: Labs reviewed by me, Image(s) reviewed by me Assessment/Plan Assessment/Plan # Acute Diskitis Osteomyelitis of L3-4 -continue vancomycin 1 g and ceftriaxone 2 g IV daily -last dose on 02/02/2025 #DVT of Right Internal Jugular Vein, Cephalic Vein, and Basilic vein -Duplex US Upper Extremity: Deep venous thrombosis in the right internal jugular vein, basilic vein, cephalic vein -continue Eliquis 5 mg p.o. b.i.d. Morphine 2 mg IV q.4 hours scheduled #ESRD on Hemodialysis -Monitor renal function and electrolytes -Sevelamer 800 mg PO TID -Vitamin D 15797 units PO q7d -Renal diet/cardiac diet -nephrology consultation with Joseline delarosa # uncontrolled hypertension -hydralazine 50 mg p.o. t.i.d. -nifedipine 30 mg p.o. daily -metoprolol XL succinate 50 mg p.o. daily. #Type 2 Diabetes Mellitus, HbA1c 6.0% on 01/09/2025 -Mild SSI -Accu-cheks #Hyperlipidemia -Atorvastatin 40 mg PO HS # anemia of chronic disease -Monitor H&H -goal hemoglobin greater than 10 -EPA as needed #Coronary artery disease with history of [place] -status post PCI with x 2 GINO Ischemic cardiomyopathy status post GENERAL DOC-D. No acute chest pain. -Brilinta 60 mg PO BID # Residual non-occlusive thrombus within the right internal jugular and cephalic veins by venous ultrasound on 01/22/2025 Time Spent 60 minutes Advanced care planning time 20 minutes Patient is full code Plan discussed with: Patient My Orders Orders - RONEN ALVARES MD Procedure Category Date Status Time Lactulose Oral PHA 01/22/25 In Process 22:00 Rt Upper Dvt US 01/22/25 Resulted 13:48 Date of Service: Jan 23, 2025 Billing Provider: RONEN ALVARES MD Common Visit Codes: [id number] INP/OBS CARE(HIGH) RONEN ALVARES MD Jan 23, 2025 13:20
--- NOTE | 2025-01-23 18:45 | DVHPN2 ---
Progress Note - Dictate Date Seen: Jan 23, 2025 Has the PT tested + for MRSA If YES, has PT been informed?: No Medical Necessity Reason Pt with a Central, PICC or Fol: No Subjective no new symptoms still complains of right arm pain vital signs Vital Sign Date Time Temp Pulse Resp B/P (MAP) Pulse Ox O2 Delivery O2 Flow Rate FiO2 01/23/25 17:18 76 15 138/88 01/23/25 16:30 98.0 96 98.0 01/23/25 08:15 Room Air* 0 21 Total Intake and Output 01/22/25 01/22/25 01/23/25 15:00 23:00 07:00 Intake Total 600 ml 650 ml Balance 600 ml 650 ml medications Current Medications Medications Dose Ordered Sig/Caroline Route Start Time Stop Time Status Last Admin Dose Admin Nitroglycerin 0.4 mg Q5MINP PRN SL 01/21/25 04:15 Morphine Sulfate 2 mg Q30M PRN IV 01/21/25 04:15 01/21/25 14:19 2 MG Apixaban 5 mg BID PO 01/21/25 10:00 01/23/25 09:33 5 MG Ergocalciferol 50,000 unit Q7D PO 01/21/25 04:15 01/21/25 05:17 50,000 UNIT Metoprolol Succinate 50 mg DAILY PO 01/21/25 10:00 01/23/25 09:33 50 MG Ticagrelor 60 mg BID PO 01/21/25 10:00 01/23/25 09:33 60 MG Patient Own Medication 1 tab DAILY PO 01/21/25 10:00 UNV Patient Own Medication 50 mg TID PO 01/21/25 06:00 UNV Patient Own Medication 1 tab DAILY PO 01/21/25 10:00 UNV Patient Own Medication 5 tab TIDWM PO 01/21/25 08:00 UNV Patient Own Medication 1 tab QPM PO 01/21/25 18:00 UNV Vancomycin HCl 0 ml @ 0 mls/hr UD IV 01/21/25 04:30 02/02/25 04:29 Atorvastatin Calcium 40 mg HS PO 01/21/25 22:00 01/22/25 21:20 40 MG Hydralazine HCl 50 mg TID PO 01/21/25 14:00 01/23/25 14:26 50 MG Trazodone HCl 150 mg QPM PO 01/21/25 18:00 01/22/25 18:20 150 MG Nifedipine 90 mg DAILY PO 01/21/25 10:00 01/23/25 09:33 90 MG Morphine Sulfate 2 mg Q4H IV 01/22/25 08:00 01/23/25 16:48 2 MG Lactulose 30 ml BID PO 01/22/25 22:00 01/23/25 09:33 30 ML Sevelamer HCl 3,200 mg TIDWM PO 01/22/25 18:00 01/23/25 18:17 3,200 MG Cefepime HCl 0.5 gm/Dextrose 50 ml @ 12.5 mls/hr HS IV 01/23/25 22:00 Famotidine 10 mg HS PO 01/23/25 22:00 objective Chronically ill, pale NAD He was sleeping but rthen woke up and asked for pain medicicine Lungs CTA CV: RR, S4 gallop is present Abdomen: soft, non tender, normal intensity BS No leg edema Right arm has no edema, erythema or visible lesions Neuro: WNL laboratory and microbiology Laboratory Tests 01/23/25 06:38 01/22/25 03:17 01/21/25 02:15 Test 01/21/25 02:15 Range/Units Serum Glucose 101 74-106 mg/dL Assessment/Plan Assessment/Plan 1. ESRD on HD 2. HTN 3, Anemia of CKD 4. Right arm pain, no clinical evidence of source of pain 5. Chronic pain 6. Chronic systolic CHF 7. Hyperphosphatemia 8. Secondary hyperparathyroidism 9. Metabolic acidosis 10. Azotemia Plan: HD not done due to stat cases, and unavailable HD RN. he is scheduled for HD for tomorrow Sevelamer 4 tabs TID with meals Continue Metoprolol and hydralazine Continue lipitor WYATT post HD as needed , goal Hb: 10-11 g/dl low K diet Plan discussed with: Patient BHAVESH MCDONNELL MD Jan 23, 2025 18:45
[2025-01-23] MEDS: EPOETIN ALFA-EPBX 4,000 UNIT/ML VIAL SC ONE (20:53)
[2025-01-23] MEDS: CEFEPIME 0.5 GM in D5W 5% 50 ML IV SCH (21:04)
[2025-01-23] MEDS: FAMOTIDINE 20 MG TAB PO SCH (21:16)
[2025-01-24] VITALS (9 sets, daily range): BP systolic 77–193; BP diastolic 56–90; PULSE 71–79; RESP 16–18; TEMP 97.6–98; O2SAT 90–98
--- NOTE | 2025-01-24 11:47 | DVHPN2 ---
Reviewed: Care Plan, H&P, Labs, Medications, Previous Orders, Radiology Changes from previous H/P or p: No Changes Eyes: No Pain, No Vision change, No Conjunctivae inflammation, No Eyelid inflammation, No Other, No Redness ENT: No Ear pain, No Ear discharge, No Nose pain, No Nose discharge, No Nose congestion, No Mouth pain, No Mouth swelling, No Throat pain, No Throat swelling, No Other Cardiovascular: No Chest Pain, No Palpitations, No Orthopnea, No Paroxysmal Noc. Dyspnea, No Edema, No Lt Headedness, No Other Respiratory: No Cough, No Dry, No Shortness of breath, No SOB with excertion, No Wheezing, No Hemoptysis, No Pleuritic Pain, No Sputum, No Other Gastrointestinal: No Nausea, No Vomiting, No Abdominal Pain, No Diarrhea, No Constipation, No Melena, No Hematochezia, No Other Musculoskeletal: arm pain Skin: No Rash, No Lesions, No Jaundice, No Bruising, No Other Objective Vitals Vital Signs Date Time Temp Pulse Resp B/P (MAP) Pulse Ox O2 Delivery O2 Flow Rate FiO2 01/24/25 09:16 78 193/90 01/24/25 08:44 98.0 16 93 98.0 01/24/25 08:00 Room Air* 0 21 Intake/Output Intake and Output 01/24/25 07:00 Intake Total 1070 ml Balance 1070 ml Intake Oral 1020 ml IV Total 50 ml # Voids 1 Medications Current Medications Medications Dose Ordered Sig/Caroline Route Start Time Stop Time Status Last Admin Dose Admin Nitroglycerin 0.4 mg Q5MINP PRN SL 01/21/25 04:15 Morphine Sulfate 2 mg Q30M PRN IV 01/21/25 04:15 01/21/25 14:19 2 MG Apixaban 5 mg BID PO 01/21/25 10:00 01/24/25 09:15 5 MG Ergocalciferol 50,000 unit Q7D PO 01/21/25 04:15 01/21/25 05:17 50,000 UNIT Metoprolol Succinate 50 mg DAILY PO 01/21/25 10:00 01/24/25 09:16 50 MG Ticagrelor 60 mg BID PO 01/21/25 10:00 01/23/25 21:05 60 MG Patient Own Medication 1 tab DAILY PO 01/21/25 10:00 UNV Patient Own Medication 50 mg TID PO 01/21/25 06:00 UNV Patient Own Medication 1 tab DAILY PO 01/21/25 10:00 UNV Patient Own Medication 5 tab TIDWM PO 01/21/25 08:00 UNV Patient Own Medication 1 tab QPM PO 01/21/25 18:00 UNV Vancomycin HCl 0 ml @ 0 mls/hr UD IV 01/21/25 04:30 02/02/25 04:29 Atorvastatin Calcium 40 mg HS PO 01/21/25 22:00 01/23/25 21:05 40 MG Hydralazine HCl 50 mg TID PO 01/21/25 14:00 01/24/25 06:47 50 MG Trazodone HCl 150 mg QPM PO 01/21/25 18:00 01/22/25 18:20 150 MG Nifedipine 90 mg DAILY PO 01/21/25 10:00 01/24/25 09:15 90 MG Morphine Sulfate 2 mg Q4H IV 01/22/25 08:00 01/24/25 08:42 2 MG Lactulose 30 ml BID PO 01/22/25 22:00 01/23/25 21:14 30 ML Sevelamer HCl 3,200 mg TIDWM PO 01/22/25 18:00 01/24/25 08:02 3,200 MG Cefepime HCl 0.5 gm/Dextrose 50 ml @ 12.5 mls/hr HS IV 01/23/25 22:00 01/23/25 21:04 12.5 MLS/HR Famotidine 10 mg HS PO 01/23/25 22:00 01/23/25 21:16 10 MG Laboratory Results Laboratory Tests 01/21/25 02:15 01/22/25 03:17 01/23/25 06:38 Microbiology Microbiology Date/Time Source Procedure Growth Status 01/21/25 06:20 Nose MRSA Screen - Final Complete Labs and/or images reviewed: Labs reviewed by me, Image(s) reviewed by me Assessment/Plan Assessment/Plan # Acute Diskitis Osteomyelitis of L3-4 -continue vancomycin 1 g and ceftriaxone 2 g IV daily -last dose on 02/02/2025 #DVT of Right Internal Jugular Vein, Cephalic Vein, and Basilic vein -Duplex US Upper Extremity: Deep venous thrombosis in the right internal jugular vein, basilic vein, cephalic vein -continue Eliquis 5 mg p.o. b.i.d. Morphine 2 mg IV q.4 hours scheduled #ESRD on Hemodialysis -Monitor renal function and electrolytes -Sevelamer 800 mg PO TID -Vitamin D 25793 units PO q7d -Renal diet/cardiac diet -nephrology consultation with [facility] # uncontrolled hypertension -hydralazine 50 mg p.o. t.i.d. -nifedipine 30 mg p.o. daily -metoprolol XL succinate 50 mg p.o. daily. 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 No acute chest pain. -Brilinta 60 mg PO BID # Residual non-occlusive thrombus within the right internal jugular and cephalic veins by venous ultrasound on 01/22/2025 # neuropathy: Gabapentin 300 mg PO TID Time Spent 60 minutes Advanced care planning time 20 minutes Patient is full code Plan discussed with: Patient Date of Service: Jan 24, 2025 Billing Provider: RONEN ALVARES MD Common Visit Codes: [id number] INP/OBS CARE(HIGH) RONEN ALVARES MD Jan 24, 2025 11:47
[2025-01-24] MEDS: GABAPENTIN 300 MG CAP PO SCH (12:57)
--- NOTE | 2025-01-24 15:23 | DVHPN2 ---
Progress Note - Dictate Date Seen: Jan 24, 2025 Has the PT tested + for MRSA If YES, has PT been informed?: No Medical Necessity Reason Pt with a Central, PICC or Fol: No Subjective no new symptoms still complains of right arm pain vital signs Vital Sign Date Time Temp Pulse Resp B/P (MAP) Pulse Ox O2 Delivery O2 Flow Rate FiO2 01/24/25 12:57 159/72 01/24/25 09:16 78 01/24/25 08:44 98.0 16 93 98.0 01/24/25 08:00 Room Air* 0 21 Total Intake and Output 01/23/25 01/23/25 01/24/25 15:00 23:00 07:00 Intake Total 620 ml 450 ml Balance 620 ml 450 ml medications Current Medications Medications Dose Ordered Sig/Caroline Route Start Time Stop Time Status Last Admin Dose Admin Nitroglycerin 0.4 mg Q5MINP PRN SL 01/21/25 04:15 Morphine Sulfate 2 mg Q30M PRN IV 01/21/25 04:15 01/21/25 14:19 2 MG Apixaban 5 mg BID PO 01/21/25 10:00 01/24/25 09:15 5 MG Ergocalciferol 50,000 unit Q7D PO 01/21/25 04:15 01/21/25 05:17 50,000 UNIT Metoprolol Succinate 50 mg DAILY PO 01/21/25 10:00 01/24/25 09:16 50 MG Ticagrelor 60 mg BID PO 01/21/25 10:00 01/24/25 12:57 60 MG Patient Own Medication 1 tab DAILY PO 01/21/25 10:00 UNV Patient Own Medication 50 mg TID PO 01/21/25 06:00 UNV Patient Own Medication 1 tab DAILY PO 01/21/25 10:00 UNV Patient Own Medication 5 tab TIDWM PO 01/21/25 08:00 UNV Patient Own Medication 1 tab QPM PO 01/21/25 18:00 UNV Vancomycin HCl 0 ml @ 0 mls/hr UD IV 01/21/25 04:30 02/02/25 04:29 Atorvastatin Calcium 40 mg HS PO 01/21/25 22:00 01/23/25 21:05 40 MG Hydralazine HCl 50 mg TID PO 01/21/25 14:00 01/24/25 12:57 50 MG Trazodone HCl 150 mg QPM PO 01/21/25 18:00 01/22/25 18:20 150 MG Nifedipine 90 mg DAILY PO 01/21/25 10:00 01/24/25 09:15 90 MG Morphine Sulfate 2 mg Q4H IV 01/22/25 08:00 01/24/25 08:42 2 MG Lactulose 30 ml BID PO 01/22/25 22:00 01/23/25 21:14 30 ML Sevelamer HCl 3,200 mg TIDWM PO 01/22/25 18:00 01/24/25 12:57 3,200 MG Cefepime HCl 0.5 gm/Dextrose 50 ml @ 12.5 mls/hr HS IV 01/23/25 22:00 01/23/25 21:04 12.5 MLS/HR Famotidine 10 mg HS PO 01/23/25 22:00 01/23/25 21:16 10 MG Gabapentin 300 mg DAILY PO 01/24/25 14:00 01/24/25 12:57 300 MG objective Chronically ill, pale NAD He was sleeping but rthen woke up and asked for pain medicicine Lungs CTA CV: RR, S4 gallop is present Abdomen: soft, non tender, normal intensity BS No leg edema Right arm has no edema, erythema or visible lesions Neuro: WNL laboratory and microbiology Laboratory Tests 01/23/25 06:38 01/22/25 03:17 01/21/25 02:15 Test 01/21/25 02:15 Range/Units Serum Glucose 101 74-106 mg/dL Assessment/Plan Assessment/Plan 1. ESRD on HD 2. HTN 3, Anemia of CKD 4. Right arm pain, no clinical evidence of source of pain 5. Chronic pain 6. Chronic systolic CHF 7. Hyperphosphatemia 8. Secondary hyperparathyroidism 9. Metabolic acidosis 10. Azotemia Plan: Rescheduled for HD for today (Wednesday) will then continue on MWF schedule Sevelamer 4 tabs TID with meals Continue Metoprolol and hydralazine Continue Lipitor WYATT post HD as needed , goal Hb: 10-11 g/dl low K diet Dietary Evaluation Review Comments: [facility] Monitor and encourage PO intakes to meet his needs Hemodialysis pending Expected Outcomes/Goals: free from uremic syndrome, maintain Wt Plan discussed with: Patient BHAVESH MCDONNELL MD Jan 24, 2025 15:23
[2025-01-24 16:54] LABS: Hepatitis B Surface Antigen Negative (Negative); Hepatitis C Antibody Negative (Negative)
[2025-01-24] MEDS: SEVELAMER 800 MG TAB PO ONE (21:37)
[2025-01-25] VITALS (8 sets, daily range): BP systolic 96–156; BP diastolic 35–78; PULSE 70–92; RESP 16–20; TEMP 97.3–98.7; O2SAT 94–97
--- NOTE | 2025-01-25 06:57 | DVHPN2 ---
Progress Note - Dictate Date Seen: Jan 25, 2025 Has the PT tested + for MRSA If YES, has PT been informed?: No Medical Necessity Reason Pt with a Central, PICC or Fol: No Subjective no new symptoms still complains of right arm pain vital signs Vital Sign Date Time Temp Pulse Resp B/P (MAP) Pulse Ox O2 Delivery O2 Flow Rate FiO2 01/25/25 05:10 105/61 01/25/25 05:00 70 17 96 01/25/25 00:55 98.0 98.0 01/24/25 20:00 Room Air* 0 21 Total Intake and Output 01/24/25 01/24/25 01/25/25 15:00 23:00 07:00 Intake Total 850 ml 800 ml Balance 850 ml 800 ml medications Current Medications Medications Dose Ordered Sig/Caroline Route Start Time Stop Time Status Last Admin Dose Admin Nitroglycerin 0.4 mg Q5MINP PRN SL 01/21/25 04:15 Morphine Sulfate 2 mg Q30M PRN IV 01/21/25 04:15 01/21/25 14:19 2 MG Apixaban 5 mg BID PO 01/21/25 10:00 01/24/25 21:38 5 MG Ergocalciferol 50,000 unit Q7D PO 01/21/25 04:15 01/21/25 05:17 50,000 UNIT Metoprolol Succinate 50 mg DAILY PO 01/21/25 10:00 01/24/25 09:16 50 MG Ticagrelor 60 mg BID PO 01/21/25 10:00 01/24/25 21:54 60 MG Patient Own Medication 1 tab DAILY PO 01/21/25 10:00 UNV Patient Own Medication 50 mg TID PO 01/21/25 06:00 UNV Patient Own Medication 1 tab DAILY PO 01/21/25 10:00 UNV Patient Own Medication 5 tab TIDWM PO 01/21/25 08:00 UNV Patient Own Medication 1 tab QPM PO 01/21/25 18:00 UNV Vancomycin HCl 0 ml @ 0 mls/hr UD IV 01/21/25 04:30 02/02/25 04:29 Atorvastatin Calcium 40 mg HS PO 01/21/25 22:00 01/24/25 21:38 40 MG Hydralazine HCl 50 mg TID PO 01/21/25 14:00 01/24/25 12:57 50 MG Trazodone HCl 150 mg QPM PO 01/21/25 18:00 01/22/25 18:20 150 MG Nifedipine 90 mg DAILY PO 01/21/25 10:00 01/24/25 09:15 90 MG Morphine Sulfate 2 mg Q4H IV 01/22/25 08:00 01/25/25 02:50 2 MG Lactulose 30 ml BID PO 01/22/25 22:00 01/23/25 21:14 30 ML Sevelamer HCl 3,200 mg TIDWM PO 01/22/25 18:00 01/24/25 12:57 3,200 MG Cefepime HCl 0.5 gm/Dextrose 50 ml @ 12.5 mls/hr HS IV 01/23/25 22:00 01/24/25 22:23 12.5 MLS/HR Famotidine 10 mg HS PO 01/23/25 22:00 01/24/25 21:54 10 MG Gabapentin 300 mg DAILY PO 01/24/25 14:00 01/24/25 12:57 300 MG objective Chronically ill, pale NAD He was sleeping but rthen woke up and asked for pain medicicine Lungs CTA CV: RR, S4 gallop is present Abdomen: soft, non tender, normal intensity BS No leg edema Right arm has no edema, erythema or visible lesions Neuro: WNL laboratory and microbiology Laboratory Tests 01/23/25 06:38 01/22/25 03:17 01/21/25 02:15 Test 01/21/25 02:15 Range/Units Serum Glucose 101 74-106 mg/dL Assessment/Plan Assessment/Plan 1. ESRD on HD 2. HTN 3, Anemia of CKD 4. Right arm pain, no clinical evidence of source of pain 5. Chronic pain 6. Chronic systolic CHF 7. Hyperphosphatemia 8. Secondary hyperparathyroidism 9. Metabolic acidosis 10. Azotemia Plan: s/p HD yesterday (Wednesday) Next HD on Wednesday continue on MWF schedule Sevelamer 4 tabs TID with meals Continue Metoprolol and hydralazine Continue Lipitor WYATT post HD as needed , goal Hb: 10-11 g/dl low K diet Dietary Evaluation Review Comments: [facility] Monitor and encourage PO intakes to meet his needs Hemodialysis pending Expected Outcomes/Goals: free from uremic syndrome, maintain Wt Plan discussed with: Patient BHAVESH MCDONNELL MD Jan 25, 2025 06:57
--- NOTE | 2025-01-25 12:13 | DVHPN2 ---
Reviewed: Care Plan, H&P, Labs, Medications, Previous Orders, Radiology Changes from previous H/P or p: No Changes Eyes: No Pain, No Vision change, No Conjunctivae inflammation, No Eyelid inflammation, No Other, No Redness ENT: No Ear pain, No Ear discharge, No Nose pain, No Nose discharge, No Nose congestion, No Mouth pain, No Mouth swelling, No Throat pain, No Throat swelling, No Other Cardiovascular: No Chest Pain, No Palpitations, No Orthopnea, No Paroxysmal Noc. Dyspnea, No Edema, No Lt Headedness, No Other Respiratory: No Cough, No Dry, No Shortness of breath, No SOB with excertion, No Wheezing, No Hemoptysis, No Pleuritic Pain, No Sputum, No Other Gastrointestinal: No Nausea, No Vomiting, No Abdominal Pain, No Diarrhea, No Constipation, No Melena, No Hematochezia, No Other Musculoskeletal: arm pain Skin: No Rash, No Lesions, No Jaundice, No Bruising, No Other Objective Vitals Vital Signs Date Time Temp Pulse Resp B/P (MAP) Pulse Ox O2 Delivery O2 Flow Rate FiO2 01/25/25 09:26 78 155/81 01/25/25 09:00 97.5 20 94 97.5 01/25/25 08:00 Room Air* 0 21 Intake/Output Intake and Output 01/25/25 07:00 Intake Total 1650 ml Balance 1650 ml Intake Oral 1600 ml IV Total 50 ml Medications Current Medications Medications Dose Ordered Sig/Caroline Route Start Time Stop Time Status Last Admin Dose Admin Nitroglycerin 0.4 mg Q5MINP PRN SL 01/21/25 04:15 Morphine Sulfate 2 mg Q30M PRN IV 01/21/25 04:15 01/21/25 14:19 2 MG Apixaban 5 mg BID PO 01/21/25 10:00 01/25/25 09:15 5 MG Ergocalciferol 50,000 unit Q7D PO 01/21/25 04:15 01/21/25 05:17 50,000 UNIT Metoprolol Succinate 50 mg DAILY PO 01/21/25 10:00 01/25/25 09:26 50 MG Ticagrelor 60 mg BID PO 01/21/25 10:00 01/25/25 09:18 60 MG Patient Own Medication 1 tab DAILY PO 01/21/25 10:00 UNV Patient Own Medication 50 mg TID PO 01/21/25 06:00 UNV Patient Own Medication 1 tab DAILY PO 01/21/25 10:00 UNV Patient Own Medication 5 tab TIDWM PO 01/21/25 08:00 UNV Patient Own Medication 1 tab QPM PO 01/21/25 18:00 UNV Vancomycin HCl 0 ml @ 0 mls/hr UD IV 01/21/25 04:30 02/02/25 04:29 Atorvastatin Calcium 40 mg HS PO 01/21/25 22:00 01/24/25 21:38 40 MG Hydralazine HCl 50 mg TID PO 01/21/25 14:00 01/24/25 12:57 50 MG Trazodone HCl 150 mg QPM PO 01/21/25 18:00 01/22/25 18:20 150 MG Nifedipine 90 mg DAILY PO 01/21/25 10:00 01/25/25 09:25 90 MG Morphine Sulfate 2 mg Q4H IV 01/22/25 08:00 01/25/25 02:50 2 MG Lactulose 30 ml BID PO 01/22/25 22:00 01/25/25 09:14 30 ML Sevelamer HCl 3,200 mg TIDWM PO 01/22/25 18:00 01/25/25 09:18 3,200 MG Cefepime HCl 0.5 gm/Dextrose 50 ml @ 12.5 mls/hr HS IV 01/23/25 22:00 01/24/25 22:23 12.5 MLS/HR Famotidine 10 mg HS PO 01/23/25 22:00 01/24/25 21:54 10 MG Gabapentin 300 mg DAILY PO 01/24/25 14:00 01/25/25 10:00 300 MG Diphenhydramine HCl 25 mg DAILY PRN PO 01/25/25 07:45 01/25/25 09:18 25 MG Laboratory Results Laboratory Tests 01/21/25 02:15 01/22/25 03:17 01/25/25 06:27 Microbiology Microbiology Date/Time Source Procedure Growth Status 01/21/25 06:20 Nose MRSA Screen - Final Complete Labs and/or images reviewed: Labs reviewed by me, Image(s) reviewed by me Assessment/Plan Assessment/Plan # Acute Diskitis Osteomyelitis of L3-4 -continue vancomycin 1 g and ceftriaxone 2 g IV daily -last dose on 02/02/2025 #DVT of Right Internal Jugular Vein, Cephalic Vein, and Basilic vein -Duplex US Upper Extremity: Deep venous thrombosis in the right internal jugular vein, basilic vein, cephalic vein -continue Eliquis 5 mg p.o. b.i.d. Morphine 2 mg IV q.4 hours scheduled #ESRD on Hemodialysis -Monitor renal function and electrolytes -Sevelamer 800 mg PO TID -Vitamin D 12263 units PO q7d -Renal diet/cardiac diet -nephrology consultation with [facility] # uncontrolled hypertension -hydralazine 50 mg p.o. t.i.d. -nifedipine 30 mg p.o. daily -metoprolol XL succinate 50 mg p.o. daily. 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 No acute chest pain. -Brilinta 60 mg PO BID # Residual non-occlusive thrombus within the right internal jugular and cephalic veins by venous ultrasound on 01/22/2025 # neuropathy: Gabapentin 300 mg PO TID Time Spent 50 minutes Advanced care planning time 20 minutes Patient is full code Plan discussed with: Patient My Orders Orders - RONEN ALVARES MD Procedure Category Date Status Time Pt Request For Service PT 01/24/25 Logged 12:17 Date of Service: Jan 25, 2025 Billing Provider: RONEN ALVARES MD Common Visit Codes: [id number] INP/OBS CARE(HIGH) RONEN ALVARES MD Jan 25, 2025 12:12
[2025-01-25] MEDS: HYDROmorphone HCL 2 MG/ML VL/or syr IV PRN (21:36)
[2025-01-25] MEDS: DOCUSATE SOD 100 MG CAP PO SCH (21:38)
[2025-01-26] VITALS (8 sets, daily range): BP systolic 126–153; BP diastolic 55–76; PULSE 75–88; RESP 16–18; TEMP 97.3–98.2; O2SAT 91–98
[2025-01-26] MEDS: HYDROcodone-ACET 5/325MG TAB PO PRN (06:36)
[2025-01-26] MEDS ORDERED: SODIUM CHL 0.9% 1000 ML BAG XX ONE (07:00)
--- NOTE | 2025-01-26 11:25 | DVHPN2 ---
Reviewed: Care Plan, H&P, Labs, Medications, Previous Orders, Radiology Changes from previous H/P or p: No Changes Eyes: No Pain, No Vision change, No Conjunctivae inflammation, No Eyelid inflammation, No Other, No Redness ENT: No Ear pain, No Ear discharge, No Nose pain, No Nose discharge, No Nose congestion, No Mouth pain, No Mouth swelling, No Throat pain, No Throat swelling, No Other Cardiovascular: No Chest Pain, No Palpitations, No Orthopnea, No Paroxysmal Noc. Dyspnea, No Edema, No Lt Headedness, No Other Respiratory: No Cough, No Dry, No Shortness of breath, No SOB with excertion, No Wheezing, No Hemoptysis, No Pleuritic Pain, No Sputum, No Other Gastrointestinal: No Nausea, No Vomiting, No Abdominal Pain, No Diarrhea, No Constipation, No Melena, No Hematochezia, No Other Musculoskeletal: arm pain Skin: No Rash, No Lesions, No Jaundice, No Bruising, No Other Objective Vitals Vital Signs Date Time Temp Pulse Resp B/P (MAP) Pulse Ox O2 Delivery O2 Flow Rate FiO2 01/26/25 08:55 80 18 165/38 01/26/25 08:55 97.9 94 97.9 01/25/25 20:00 Room Air* 0 21 Intake/Output Intake and Output 01/26/25 07:00 Intake Total 1950 ml Balance 1950 ml Intake Oral 1900 ml IV Total 50 ml Medications Current Medications Medications Dose Ordered Sig/Caroline Route Start Time Stop Time Status Last Admin Dose Admin Nitroglycerin 0.4 mg Q5MINP PRN SL 01/21/25 04:15 Morphine Sulfate 2 mg Q30M PRN IV 01/21/25 04:15 01/21/25 14:19 2 MG Apixaban 5 mg BID PO 01/21/25 10:00 01/25/25 21:37 5 MG Ergocalciferol 50,000 unit Q7D PO 01/21/25 04:15 01/21/25 05:17 50,000 UNIT Metoprolol Succinate 50 mg DAILY PO 01/21/25 10:00 01/25/25 09:26 50 MG Ticagrelor 60 mg BID PO 01/21/25 10:00 01/25/25 22:00 60 MG Patient Own Medication 1 tab DAILY PO 01/21/25 10:00 UNV Patient Own Medication 50 mg TID PO 01/21/25 06:00 UNV Patient Own Medication 1 tab DAILY PO 01/21/25 10:00 UNV Patient Own Medication 5 tab TIDWM PO 01/21/25 08:00 UNV Patient Own Medication 1 tab QPM PO 01/21/25 18:00 UNV Vancomycin HCl 0 ml @ 0 mls/hr UD IV 01/21/25 04:30 02/02/25 04:29 Atorvastatin Calcium 40 mg HS PO 01/21/25 22:00 01/25/25 21:40 40 MG Hydralazine HCl 50 mg TID PO 01/21/25 14:00 01/26/25 06:24 50 MG Trazodone HCl 150 mg QPM PO 01/21/25 18:00 01/25/25 18:00 150 MG Nifedipine 90 mg DAILY PO 01/21/25 10:00 01/25/25 09:25 90 MG Morphine Sulfate 2 mg Q4H IV 01/22/25 08:00 01/25/25 15:07 2 MG Lactulose 30 ml BID PO 01/22/25 22:00 01/26/25 08:02 30 ML Sevelamer HCl 3,200 mg TIDWM PO 01/22/25 18:00 01/26/25 08:02 3,200 MG Cefepime HCl 0.5 gm/Dextrose 50 ml @ 12.5 mls/hr HS IV 01/23/25 22:00 01/25/25 21:35 12.5 MLS/HR Famotidine 10 mg HS PO 01/23/25 22:00 01/25/25 21:38 10 MG Gabapentin 300 mg DAILY PO 01/24/25 14:00 01/26/25 08:02 300 MG Diphenhydramine HCl 25 mg DAILY PRN PO 01/25/25 07:45 01/25/25 09:18 25 MG Docusate Sodium 100 mg BID PO 01/25/25 22:00 01/26/25 08:02 100 MG Hydromorphone HCl 0.5 mg Q4HPRN PRN IV 01/25/25 21:15 01/26/25 08:55 0.5 MG Acetaminophen/ Hydrocodone Bitart 1 tab Q6HPRN PRN PO 01/26/25 03:30 01/26/25 06:36 1 TAB Laboratory Results Laboratory Tests 01/21/25 02:15 01/22/25 03:17 01/25/25 06:27 Microbiology Microbiology Date/Time Source Procedure Growth Status 01/21/25 06:20 Nose MRSA Screen - Final Complete Labs and/or images reviewed: Labs reviewed by me, Image(s) reviewed by me Assessment/Plan Assessment/Plan # Acute Diskitis Osteomyelitis of L3-4 -continue vancomycin 1 g and ceftriaxone 2 g IV daily -last dose on 02/02/2025 #DVT of Right Internal Jugular Vein, Cephalic Vein, and Basilic vein -Duplex US Upper Extremity: Deep venous thrombosis in the right internal jugular vein, basilic vein, cephalic vein -continue Eliquis 5 mg p.o. b.i.d. Morphine 2 mg IV q.4 hours scheduled #ESRD on Hemodialysis -Monitor renal function and electrolytes -Sevelamer 800 mg PO TID -Vitamin D 74410 units PO q7d -Renal diet/cardiac diet -nephrology consultation with [facility] # uncontrolled hypertension -hydralazine 50 mg p.o. t.i.d. -nifedipine 30 mg p.o. daily -metoprolol XL succinate 50 mg p.o. daily. 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 No acute chest pain. -Brilinta 60 mg PO BID # Residual non-occlusive thrombus within the right internal jugular and cephalic veins by venous ultrasound on 01/22/2025 # neuropathy: Gabapentin 300 mg PO TID Time Spent 50 minutes Advanced care planning time 20 minutes Patient is full code Plan discussed with: Patient My Orders Orders - RONEN ALVARES MD Procedure Category Date Status Time Docusate Sodium PHA 01/25/25 In Process Capsule (Colace 22:00 Date of Service: Jan 26, 2025 Billing Provider: RONEN ALVARES MD Common Visit Codes: [id number] INP/OBS CARE(HIGH) RONEN ALVARES MD Jan 26, 2025 11:25
--- NOTE | 2025-01-26 19:25 | DVHPN2 ---
Progress Note - Dictate Date Seen: Jan 26, 2025 Has the PT tested + for MRSA If YES, has PT been informed?: No Medical Necessity Reason Pt with a Central, PICC or Fol: No Subjective no new symptoms still complains of right arm pain vital signs Vital Sign Date Time Temp Pulse Resp B/P (MAP) Pulse Ox O2 Delivery O2 Flow Rate FiO2 01/26/25 18:34 93 18 140/81 01/26/25 17:00 97.8 96 97.8 01/26/25 08:00 Room Air* 0 21 Total Intake and Output 01/25/25 01/25/25 01/26/25 15:00 23:00 07:00 Intake Total 900 ml 600 ml 450 ml Balance 900 ml 600 ml 450 ml medications Current Medications Medications Dose Ordered Sig/Caroline Route Start Time Stop Time Status Last Admin Dose Admin Nitroglycerin 0.4 mg Q5MINP PRN SL 01/21/25 04:15 Morphine Sulfate 2 mg Q30M PRN IV 01/21/25 04:15 01/21/25 14:19 2 MG Apixaban 5 mg BID PO 01/21/25 10:00 01/25/25 21:37 5 MG Ergocalciferol 50,000 unit Q7D PO 01/21/25 04:15 01/21/25 05:17 50,000 UNIT Metoprolol Succinate 50 mg DAILY PO 01/21/25 10:00 01/25/25 09:26 50 MG Ticagrelor 60 mg BID PO 01/21/25 10:00 01/25/25 22:00 60 MG Patient Own Medication 1 tab DAILY PO 01/21/25 10:00 UNV Patient Own Medication 50 mg TID PO 01/21/25 06:00 UNV Patient Own Medication 1 tab DAILY PO 01/21/25 10:00 UNV Patient Own Medication 5 tab TIDWM PO 01/21/25 08:00 UNV Patient Own Medication 1 tab QPM PO 01/21/25 18:00 UNV Vancomycin HCl 0 ml @ 0 mls/hr UD IV 01/21/25 04:30 02/02/25 04:29 Atorvastatin Calcium 40 mg HS PO 01/21/25 22:00 01/25/25 21:40 40 MG Hydralazine HCl 50 mg TID PO 01/21/25 14:00 01/26/25 06:24 50 MG Trazodone HCl 150 mg QPM PO 01/21/25 18:00 01/25/25 18:00 150 MG Nifedipine 90 mg DAILY PO 01/21/25 10:00 01/25/25 09:25 90 MG Morphine Sulfate 2 mg Q4H IV 01/22/25 08:00 01/25/25 15:07 2 MG Lactulose 30 ml BID PO 01/22/25 22:00 01/26/25 08:02 30 ML Sevelamer HCl 3,200 mg TIDWM PO 01/22/25 18:00 01/26/25 18:32 3,200 MG Cefepime HCl 0.5 gm/Dextrose 50 ml @ 12.5 mls/hr HS IV 01/23/25 22:00 01/25/25 21:35 12.5 MLS/HR Famotidine 10 mg HS PO 01/23/25 22:00 01/25/25 21:38 10 MG Gabapentin 300 mg DAILY PO 01/24/25 14:00 01/26/25 08:02 300 MG Diphenhydramine HCl 25 mg DAILY PRN PO 01/25/25 07:45 01/26/25 15:35 25 MG Docusate Sodium 100 mg BID PO 01/25/25 22:00 01/26/25 08:02 100 MG Hydromorphone HCl 0.5 mg Q4HPRN PRN IV 01/25/25 21:15 01/26/25 18:34 0.5 MG Acetaminophen/ Hydrocodone Bitart 1 tab Q6HPRN PRN PO 01/26/25 03:30 01/26/25 13:48 1 TAB objective Chronically ill, pale NAD He was sleeping but rthen woke up and asked for pain medicicine Lungs CTA CV: RR, S4 gallop is present Abdomen: soft, non tender, normal intensity BS No leg edema Right arm has no edema, erythema or visible lesions Neuro: WNL laboratory and microbiology Laboratory Tests 01/25/25 06:27 01/22/25 03:17 01/21/25 02:15 Test 01/21/25 02:15 Range/Units Serum Glucose 101 74-106 mg/dL Assessment/Plan Assessment/Plan 1. ESRD on HD 2. HTN 3, Anemia of CKD 4. Right arm pain, no clinical evidence of source of pain 5. Chronic pain 6. Chronic systolic CHF 7. Hyperphosphatemia 8. Secondary hyperparathyroidism 9. Metabolic acidosis 10. Azotemia Plan: s/p HD today - Wednesday Next HD on Wednesday continue on MWF schedule Sevelamer 4 tabs TID with meals Continue Metoprolol and hydralazine Continue Lipitor Resume renaVite [facility] post HD as needed , goal Hb: 10-11 g/dl low K diet Dietary Evaluation Review Comments: Renal Standard CCHO-45 diet Monitor and encourage PO intakes to meet his needs Hemodialysis pending Expected Outcomes/Goals: free from uremic syndrome, maintain Wt Plan discussed with: Patient BHAVESH MCDONNELL MD Jan 26, 2025 19:24
[2025-01-27] VITALS (8 sets, daily range): BP systolic 122–165; BP diastolic 64–91; PULSE 78–89; RESP 16–18; TEMP 97.9–98.3; O2SAT 94–100
--- NOTE | 2025-01-27 06:58 | DVHPN2 ---
Progress Note - Dictate Date Seen: Jan 27, 2025 Has the PT tested + for MRSA If YES, has PT been informed?: No Medical Necessity Reason Pt with a Central, PICC or Fol: No Subjective no new symptoms still complains of right arm pain vital signs Vital Sign Date Time Temp Pulse Resp B/P (MAP) Pulse Ox O2 Delivery O2 Flow Rate FiO2 01/27/25 05:30 155/52 01/27/25 05:00 98.2 85 18 94 98.2 01/26/25 20:00 Room Air* 0 21 Total Intake and Output 01/26/25 01/26/25 01/27/25 15:00 23:00 07:00 Intake Total 1140 ml 640 ml 400 ml Balance 1140 ml 640 ml 400 ml medications Current Medications Medications Dose Ordered Sig/Caroline Route Start Time Stop Time Status Last Admin Dose Admin Nitroglycerin 0.4 mg Q5MINP PRN SL 01/21/25 04:15 Morphine Sulfate 2 mg Q30M PRN IV 01/21/25 04:15 01/21/25 14:19 2 MG Apixaban 5 mg BID PO 01/21/25 10:00 01/26/25 22:04 5 MG Ergocalciferol 50,000 unit Q7D PO 01/21/25 04:15 01/21/25 05:17 50,000 UNIT Metoprolol Succinate 50 mg DAILY PO 01/21/25 10:00 01/25/25 09:26 50 MG Ticagrelor 60 mg BID PO 01/21/25 10:00 01/26/25 21:58 60 MG Patient Own Medication 1 tab DAILY PO 01/21/25 10:00 UNV Patient Own Medication 50 mg TID PO 01/21/25 06:00 UNV Patient Own Medication 1 tab DAILY PO 01/21/25 10:00 UNV Patient Own Medication 5 tab TIDWM PO 01/21/25 08:00 UNV Patient Own Medication 1 tab QPM PO 01/21/25 18:00 UNV Vancomycin HCl 0 ml @ 0 mls/hr UD IV 01/21/25 04:30 02/02/25 04:29 Atorvastatin Calcium 40 mg HS PO 01/21/25 22:00 01/26/25 22:03 40 MG Hydralazine HCl 50 mg TID PO 01/21/25 14:00 01/27/25 05:30 50 MG Trazodone HCl 150 mg QPM PO 01/21/25 18:00 01/25/25 18:00 150 MG Nifedipine 90 mg DAILY PO 01/21/25 10:00 01/25/25 09:25 90 MG Morphine Sulfate 2 mg Q4H IV 01/22/25 08:00 01/25/25 15:07 2 MG Lactulose 30 ml BID PO 01/22/25 22:00 01/26/25 22:04 30 ML Sevelamer HCl 3,200 mg TIDWM PO 01/22/25 18:00 01/26/25 18:32 3,200 MG Cefepime HCl 0.5 gm/Dextrose 50 ml @ 12.5 mls/hr HS IV 01/23/25 22:00 01/26/25 22:05 12.5 MLS/HR Famotidine 10 mg HS PO 01/23/25 22:00 01/26/25 22:03 10 MG Gabapentin 300 mg DAILY PO 01/24/25 14:00 01/26/25 08:02 300 MG Diphenhydramine HCl 25 mg DAILY PRN PO 01/25/25 07:45 01/26/25 15:35 25 MG Docusate Sodium 100 mg BID PO 01/25/25 22:00 01/26/25 22:04 100 MG Hydromorphone HCl 0.5 mg Q4HPRN PRN IV 01/25/25 21:15 01/27/25 03:34 0.5 MG Acetaminophen/ Hydrocodone Bitart 1 tab Q6HPRN PRN PO 01/26/25 03:30 01/27/25 05:31 1 TAB Multivit/Ca Carb/ B Cmplx/FA/Prenat 1 tab DAILY PO 01/27/25 10:00 Diphenhydramine HCl 25 mg Q8HP PO 01/26/25 22:00 01/27/25 05:29 25 MG objective Chronically ill, pale NAD He was sleeping but rthen woke up and asked for pain medicicine Lungs CTA CV: RR, S4 gallop is present Abdomen: soft, non tender, normal intensity BS No leg edema Right arm has no edema, erythema or visible lesions Neuro: WNL laboratory and microbiology Laboratory Tests 01/25/25 06:27 01/22/25 03:17 01/21/25 02:15 Test 01/21/25 02:15 Range/Units Serum Glucose 101 74-106 mg/dL Assessment/Plan Assessment/Plan 1. ESRD on HD 2. HTN 3, Anemia of CKD 4. Right arm pain, no clinical evidence of source of pain 5. Chronic pain 6. Chronic systolic CHF 7. Hyperphosphatemia 8. Secondary hyperparathyroidism 9. Metabolic acidosis 10. Azotemia Plan: s/p HD Wednesday Next HD on Wednesday if still in house continue on MWF schedule Sevelamer 4 tabs TID with meals Continue Metoprolol and hydralazine Continue Lipitor Continue renaVite [facility] post HD as needed , goal Hb: 10-11 g/dl low K diet Dietary Evaluation Review Comments: [facility] Monitor and encourage PO intakes to meet his needs Hemodialysis pending Expected Outcomes/Goals: free from uremic syndrome, maintain Wt Plan discussed with: Patient BHAVESH MCDONNELL MD Jan 27, 2025 06:58
[2025-01-27 07:50] LABS: Hematocrit 25.7 % (41.0-53.0); Hemoglobin 8.8 g/dL (13.5-17.5); Mean Corpuscular Hemoglobin 30.3 pg (28.0-32.0); Mean Corpuscular Volume 88.7 fL (80.0-100.0); Nucleated Red Blood Cells % 0.1 %
[2025-01-27] MEDS: B-COMPLEX W/ C & FOLIC ACID(NEPHROVITE TAB) PO SCH (08:08)
--- NOTE | 2025-01-27 12:48 | DVHPN2 ---
Reviewed: Care Plan, H&P, Labs, Medications, Previous Orders, Radiology Changes from previous H/P or p: No Changes Eyes: No Pain, No Vision change, No Conjunctivae inflammation, No Eyelid inflammation, No Other, No Redness ENT: No Ear pain, No Ear discharge, No Nose pain, No Nose discharge, No Nose congestion, No Mouth pain, No Mouth swelling, No Throat pain, No Throat swelling, No Other Cardiovascular: No Chest Pain, No Palpitations, No Orthopnea, No Paroxysmal Noc. Dyspnea, No Edema, No Lt Headedness, No Other Respiratory: No Cough, No Dry, No Shortness of breath, No SOB with excertion, No Wheezing, No Hemoptysis, No Pleuritic Pain, No Sputum, No Other Gastrointestinal: No Nausea, No Vomiting, No Abdominal Pain, No Diarrhea, No Constipation, No Melena, No Hematochezia, No Other Musculoskeletal: arm pain Skin: No Rash, No Lesions, No Jaundice, No Bruising, No Other Objective Vitals Vital Signs Date Time Temp Pulse Resp B/P (MAP) Pulse Ox O2 Delivery O2 Flow Rate FiO2 01/27/25 10:08 86 16 165/85 01/27/25 08:55 98.1 95 98.1 01/27/25 08:00 Room Air* 0 21 Intake/Output Intake and Output 01/27/25 07:00 Intake Total 2180 ml Balance 2180 ml Intake Oral 2180 ml # Bowel Movements 1 Medications Current Medications Medications Dose Ordered Sig/Caroline Route Start Time Stop Time Status Last Admin Dose Admin Nitroglycerin 0.4 mg Q5MINP PRN SL 01/21/25 04:15 Morphine Sulfate 2 mg Q30M PRN IV 01/21/25 04:15 01/21/25 14:19 2 MG Apixaban 5 mg BID PO 01/21/25 10:00 01/27/25 08:09 5 MG Ergocalciferol 50,000 unit Q7D PO 01/21/25 04:15 01/21/25 05:17 50,000 UNIT Metoprolol Succinate 50 mg DAILY PO 01/21/25 10:00 01/27/25 08:09 50 MG Ticagrelor 60 mg BID PO 01/21/25 10:00 01/27/25 08:11 60 MG Patient Own Medication 1 tab DAILY PO 01/21/25 10:00 UNV Patient Own Medication 50 mg TID PO 01/21/25 06:00 UNV Patient Own Medication 1 tab DAILY PO 01/21/25 10:00 UNV Patient Own Medication 5 tab TIDWM PO 01/21/25 08:00 UNV Patient Own Medication 1 tab QPM PO 01/21/25 18:00 UNV Vancomycin HCl 0 ml @ 0 mls/hr UD IV 01/21/25 04:30 02/02/25 04:29 Atorvastatin Calcium 40 mg HS PO 01/21/25 22:00 01/26/25 22:03 40 MG Hydralazine HCl 50 mg TID PO 01/21/25 14:00 01/27/25 05:30 50 MG Trazodone HCl 150 mg QPM PO 01/21/25 18:00 01/25/25 18:00 150 MG Nifedipine 90 mg DAILY PO 01/21/25 10:00 01/27/25 08:11 90 MG Morphine Sulfate 2 mg Q4H IV 01/22/25 08:00 01/25/25 15:07 2 MG Lactulose 30 ml BID PO 01/22/25 22:00 01/27/25 08:03 30 ML Sevelamer HCl 3,200 mg TIDWM PO 01/22/25 18:00 01/27/25 12:40 3,200 MG Cefepime HCl 0.5 gm/Dextrose 50 ml @ 12.5 mls/hr HS IV 01/23/25 22:00 01/26/25 22:05 12.5 MLS/HR Famotidine 10 mg HS PO 01/23/25 22:00 01/26/25 22:03 10 MG Gabapentin 300 mg DAILY PO 01/24/25 14:00 01/27/25 08:07 300 MG Diphenhydramine HCl 25 mg DAILY PRN PO 01/25/25 07:45 01/26/25 15:35 25 MG Docusate Sodium 100 mg BID PO 01/25/25 22:00 01/27/25 08:08 100 MG Hydromorphone HCl 0.5 mg Q4HPRN PRN IV 01/25/25 21:15 01/27/25 10:08 0.5 MG Acetaminophen/ Hydrocodone Bitart 1 tab Q6HPRN PRN PO 01/26/25 03:30 01/27/25 12:40 1 TAB Multivit/Ca Carb/ B Cmplx/FA/Prenat 1 tab DAILY PO 01/27/25 10:00 01/27/25 08:08 1 TAB Diphenhydramine HCl 25 mg Q8HP PO 01/26/25 22:00 01/27/25 05:29 25 MG Laboratory Results Laboratory Tests 01/21/25 02:15 01/27/25 06:59 Microbiology Microbiology Date/Time Source Procedure Growth Status 01/21/25 06:20 Nose MRSA Screen - Final Complete Assessment/Plan Assessment/Plan # Acute Diskitis Osteomyelitis of L3-4 -continue vancomycin 1 g and ceftriaxone 2 g IV daily -last dose on 02/02/2025 #DVT of Right Internal Jugular Vein, Cephalic Vein, and Basilic vein -Duplex US Upper Extremity: Deep venous thrombosis in the right internal jugular vein, basilic vein, cephalic vein -continue Eliquis 5 mg p.o. b.i.d. Morphine 2 mg IV q.4 hours scheduled #ESRD on Hemodialysis -Monitor renal function and electrolytes -Sevelamer 800 mg PO TID -Vitamin D 97806 units PO q7d -Renal diet/cardiac diet -[facility] # uncontrolled hypertension -hydralazine 50 mg p.o. t.i.d. -nifedipine 30 mg p.o. daily -metoprolol XL succinate 50 mg p.o. daily. #Type 2 Diabetes Mellitus, HbA1c 6.0% on 01/09/2025 -Mild SSI -Accu-cheks #Hyperlipidemia -Atorvastatin 40 mg PO HS # anemia of chronic disease -Monitor H&H -goal hemoglobin greater than 10 -EPA as needed #Coronary artery disease with history of [place] -status post PCI with x 2 GINO Ischemic cardiomyopathy status post HEAD IRRIGATOR-D. No acute chest pain. -Brilinta 60 mg PO BID # Residual non-occlusive thrombus within the right internal jugular and cephalic veins by venous ultrasound on 01/22/2025 # neuropathy: Gabapentin 300 mg PO TID Time Spent 50 minutes Advanced care planning time 20 minutes Patient is full code Patient is still complaining of weakness Physical therapy ordered Plan discussed with: Patient My Orders Orders - RONEN ALVARES MD Procedure Category Date Status Time Diphenhdramine PHA 01/26/25 In Process Capsule (Benadryl 22:00 Date of Service: Jan 27, 2025 Billing Provider: RONEN ALVARES MD Common Visit Codes: [id number] INP/OBS CARE(HIGH) RONEN ALVARES MD Jan 27, 2025 12:47
[2025-01-28 01:23] VITALS: BP 117/64; PULSE 70; RESP 16; TEMP 97.8; O2SAT 94
[2025-01-28 05:00] VITALS: BP 122/63; PULSE 71; RESP 16; TEMP 98.2; O2SAT 92
[2025-01-28 08:00] VITALS: PULSE 75; PULSE 78; RESP 17; O2SAT 99
[2025-01-28 09:00] VITALS: BP 161/66; PULSE 75; RESP 17; TEMP 98.2; O2SAT 99
--- NOTE | 2025-01-28 12:28 | DVHDS2 ---
Discharge Summary Date of Admission Jan 21, 2025 at 04:07 Date of Discharge: Jan 28, 2025 Admitting Diagnosis Osteomyelitis spine Wounds: Osteomyelitis spine Labs/Diagnostic Data: Laboratory Results Test 01/27/25 06:59 01/24/25 15:15 01/21/25 02:15 White Blood Count 5.1 10^3/uL (4.4-10.8) Red Blood Count 2.90 10^6/uL (4.5-5.90) Hemoglobin 8.8 g/dL (13.5-17.5) Hematocrit 25.7 % (41.0-53.0) Mean Corpuscular Volume 88.7 fL (80.0-100.0) Mean Corpuscular Hemoglobin 30.3 pg (28.0-32.0) Mean Corpuscular Hemoglobin Concent 34.1 g/dL (32.0-36.0) Red Cell Distribution Width 17.4 % (11.8-14.3) Platelet Count 216 10^3/uL (140-450) Mean Platelet Volume 8.5 fL (6.9-10.8) Neutrophils (%) (Auto) 71.2 % (37.0-80.0) Lymphocytes (%) (Auto) 12.1 % (10.0-50.0) Monocytes (%) (Auto) 11.2 % (0.0-12.0) Eosinophils (%) (Auto) 4.6 % (0.0-7.0) Basophils (%) (Auto) 0.9 % (0.0-2.0) Neutrophils # (Auto) 3.6 10 ^3/uL (1.6-8.6) Lymphocytes # (Auto) 0.6 10 ^3/uL (0.4-5.4) Monocytes # (Auto) 0.6 10 ^3/uL (0-1.3) Eosinophils # (Auto) 0.2 10 ^3/uL (0-0.8) Basophils # (Auto) 0 10 ^3/uL (0-0.2) Nucleated Red Blood Cells 0.1 % Creatinine 7.23 mg/dL (0.700-1.30) Glomerular Filtration Rate Calc 8 mL/min (>90) Random Vancomycin Level 23.7 ug/mL (5-10) Hepatitis A IgM Antibody Negative Hepatitis B Surface Antigen Negative (Negative) Hepatitis B Core IgM Antibody Negative (Negative) Hepatitis C Antibody Negative (Negative) Sodium Level 140 mmol/L (136-145) Potassium Level 4.3 mmol/L (3.5-5.1) Chloride Level 97 mmol/L (98-107) Carbon Dioxide Level 30 mmol/L (20-31) Anion Gap 13 (5-15) Blood Urea Nitrogen 27 mg/dL (9-23) BUN/Creatinine Ratio 5.0 (10.0-20.0) Serum Glucose 101 mg/dL (74-106) Calcium Level 9.9 mg/dL (8.7-10.4) Troponin I High Sensitivity 21 ng/L (</=54) Other Laboratory Tests 01/27/25 06:59 01/21/25 02:15 Brief Hx & Hospital Course: 64-year-old male recently discharged to [place] post acute care under the care of was receiving vancomycin and Rocephin for diskitis and osteomyelitis of L3 and four came in for shortness of breaths found to have fluid overload received hemodialysis for his ESRD. Vancomycin and Rocephin continued the large dose he will be on 02/02/2025 comorbid conditions include hypotension type 2 diabetes anemia of chronic disease hypercholesterolemia coronary artery disease status post stents DVT right internal jugular on Eliquis. Patient is being discharged back to halfway he will continue with the antibiotics and other medications General condition satisfactory but poor at the time of discharge. Consults/Reason for consult [employer] or Procedures Hemodialysis Condition at Discharge: Fair Final Diagnosis/Problems List # Acute Diskitis Osteomyelitis of L3-4 -continue vancomycin 1 g and ceftriaxone 2 g IV daily -last dose on 02/02/2025 #DVT of Right Internal Jugular Vein, Cephalic Vein, and Basilic vein -Duplex US Upper Extremity: Deep venous thrombosis in the right internal jugular vein, basilic vein, cephalic vein -continue Eliquis 5 mg p.o. b.i.d. Morphine 2 mg IV q.4 hours scheduled #ESRD on Hemodialysis -Monitor renal function and electrolytes -Sevelamer 800 mg PO TID -Vitamin D 51728 units PO q7d -Renal diet/cardiac diet -nephrology consultation with Joseline delarosa # uncontrolled hypertension -hydralazine 50 mg p.o. t.i.d. -nifedipine 30 mg p.o. daily -metoprolol XL succinate 50 mg p.o. daily. #Type 2 Diabetes Mellitus, HbA1c 6.0% on 01/09/2025 -Mild SSI -Accu-cheks #Hyperlipidemia -Atorvastatin 40 mg PO HS # anemia of chronic disease -Monitor H&H -goal hemoglobin greater than 10 -EPA as needed #Coronary artery disease with history of [place] -status post PCI with x 2 GINO Ischemic cardiomyopathy status post STAFF PHYSICAL THERAPIST-D. No acute chest pain. -Brilinta 60 mg PO BID # Residual non-occlusive thrombus within the right internal jugular and cephalic veins by venous ultrasound on 01/22/2025 # neuropathy: Gabapentin 300 mg PO TID Discharge Disposition: Intermediate Facility Discharge Instruct/Medications Diet: Renal Activity: Light activity Follow Up/Referral: Follow up with the halfway Dr Follow up with the stakeholder manager for dialysis Medications: see list Scheduled Apixaban Base (Eliquis), 5 MG PO BID Atorvastatin Calcium (Atorvastatin Calcium), 1 TAB PO DAILY Diphenhydramine HCl (Allergy Relief), 25 MG PO BID Ergocalciferol (Vitamin D 05817 Unit), 50,000 UNIT PO Q7D Folic Acid-Vitamin B6-Vitamin (B Complex/Folic Acid), 1 CAP OR DAILY Hydralazine HCl (Hydralazine Hydrochloride), 50 MG PO TID Hydrocodone-Acetaminophen (Hydrocodone Bitartrate/AC 10-325 mg), 1 TAB PO QID, (Reported) Insulin Glargine (Lantus Solostar), 100 UNIT SC QPM Insulin Lispro (Insulin Lispro), 100 UNIT IJ TID Metoprolol Succinate (Metoprolol Succinate Er), 1 TAB PO DAILY Nifedipine (Nifedipine Er), 1 TAB PO DAILY Patients Own Medication (Patients Own Medication), 1 PATCH TD DAILY, (Reported) Sevelamer Carbonate (Sevelamer Carbonate), 5 TAB PO TIDWM, (Reported) Sevelamer Carbonate (Renvela), 3 TAB PO TID Ticagrelor Base (Brilinta), 60 MG PO BID Trazodone HCl (Trazodone Hydrochloride), 50 MG PO HS Trazodone Hcl (Trazodone Hcl), 1 TAB PO QPM Scheduled PRN Acetaminophen (Acetaminophen), 650 MG PO Q6HP PRN Albuterol Sulfate (Albuterol Sulfate), 1 VIAL NEB Q4HPRN PRN Diphenhydramine-Zinc Acetate (Benadryl Cream), 1 APPLIC TOP Q6HPRN PRN Lorazepam (Ativan Tablet), 1 TAB PO TID PRN for ANXIETY, (Reported) Miscellaneous Medications Trazodone Hcl (Trazodone Hcl), 150 MG PO, (Reported) 39 (Time taken for discharge summary 39 mts) Discharge Statement: "Patient was advised to return to the ER or call 911 if any headaches, dizziness, shortness of breath, chest pain, abdominal pain, bleeding, fevers, or worsening of medical condition. Patient was counseled about treatment plan, medications, possible side effects, patientverbalized understanding. All questions were answered to the best of my ability. This discharge took greater then 30 minutes in planning, reviewing documentation, counseling the patient, and discussing with other team members." ASSESSMENT ASSESSMENT Hospital Course Marginal improvement Assessment # Acute Diskitis Osteomyelitis of L3-4 -continue vancomycin 1 g and ceftriaxone 2 g IV daily -last dose on 02/02/2025 #DVT of Right Internal Jugular Vein, Cephalic Vein, and Basilic vein -Duplex US Upper Extremity: Deep venous thrombosis in the right internal jugular vein, basilic vein, cephalic vein -continue Eliquis 5 mg p.o. b.i.d. Morphine 2 mg IV q.4 hours scheduled #ESRD on Hemodialysis -Monitor renal function and electrolytes -Sevelamer 800 mg PO TID -Vitamin D 33103 units PO q7d -Renal diet/cardiac diet -nephrology consultation with Joseline delarosa # uncontrolled hypertension -hydralazine 50 mg p.o. t.i.d. -nifedipine 30 mg p.o. daily -metoprolol XL succinate 50 mg p.o. daily. #Type 2 Diabetes Mellitus, HbA1c 6.0% on 01/09/2025 -Mild SSI -Accu-cheks #Hyperlipidemia -Atorvastatin 40 mg PO HS # anemia of chronic disease -Monitor H&H -goal hemoglobin greater than 10 -EPA as needed #Coronary artery disease with history of [place] -status post PCI with x 2 GINO Ischemic cardiomyopathy status post STAFF PHYSICAL THERAPIST-D. No acute chest pain. -Brilinta 60 mg PO BID # Residual non-occlusive thrombus within the right internal jugular and cephalic veins by venous ultrasound on 01/22/2025 # neuropathy: Gabapentin 300 mg PO TID Date of Service: Jan 28, 2025 Billing Provider: RONEN ALVARES MD Common Visit Codes: [id number] DISCH DAY >30min RONEN ALVARES MD Jan 28, 2025 12:28
[2025-01-28 13:00] VITALS: BP 152/74; PULSE 73; RESP 18; TEMP 98.1; O2SAT 95
--- NOTE | 2025-01-28 14:55 | DVHPN2 ---
Progress Note - Dictate Date Seen: Jan 28, 2025 Has the PT tested + for MRSA If YES, has PT been informed?: No Medical Necessity Reason Pt with a Central, PICC or Fol: No Subjective no new symptoms still complains of right arm pain vital signs Vital Sign Date Time Temp Pulse Resp B/P (MAP) Pulse Ox O2 Delivery O2 Flow Rate FiO2 01/28/25 14:17 152/74 01/28/25 14:16 73 18 01/28/25 13:00 98.1 95 98.1 01/28/25 08:00 Room Air* 0 21 Total Intake and Output 01/27/25 01/27/25 01/28/25 15:00 23:00 07:00 Intake Total 1208 ml 400 ml 290 ml Balance 1208 ml 400 ml 290 ml medications Current Medications Medications Dose Ordered Sig/Caroline Route Start Time Stop Time Status Last Admin Dose Admin Nitroglycerin 0.4 mg Q5MINP PRN SL 01/21/25 04:15 Morphine Sulfate 2 mg Q30M PRN IV 01/21/25 04:15 01/21/25 14:19 2 MG Apixaban 5 mg BID PO 01/21/25 10:00 01/28/25 09:46 5 MG Ergocalciferol 50,000 unit Q7D PO 01/21/25 04:15 01/28/25 05:15 50,000 UNIT Metoprolol Succinate 50 mg DAILY PO 01/21/25 10:00 01/28/25 09:49 50 MG Ticagrelor 60 mg BID PO 01/21/25 10:00 01/28/25 09:53 60 MG Patient Own Medication 1 tab DAILY PO 01/21/25 10:00 UNV Patient Own Medication 50 mg TID PO 01/21/25 06:00 UNV Patient Own Medication 1 tab DAILY PO 01/21/25 10:00 UNV Patient Own Medication 5 tab TIDWM PO 01/21/25 08:00 UNV Patient Own Medication 1 tab QPM PO 01/21/25 18:00 UNV Vancomycin HCl 0 ml @ 0 mls/hr UD IV 01/21/25 04:30 02/02/25 04:29 Atorvastatin Calcium 40 mg HS PO 01/21/25 22:00 01/27/25 21:20 40 MG Hydralazine HCl 50 mg TID PO 01/21/25 14:00 01/28/25 14:17 50 MG Trazodone HCl 150 mg QPM PO 01/21/25 18:00 01/25/25 18:00 150 MG Nifedipine 90 mg DAILY PO 01/21/25 10:00 01/28/25 09:49 90 MG Morphine Sulfate 2 mg Q4H IV 01/22/25 08:00 01/25/25 15:07 2 MG Lactulose 30 ml BID PO 01/22/25 22:00 01/28/25 09:46 30 ML Sevelamer HCl 3,200 mg TIDWM PO 01/22/25 18:00 01/28/25 14:17 3,200 MG Cefepime HCl 0.5 gm/Dextrose 50 ml @ 12.5 mls/hr HS IV 01/23/25 22:00 01/27/25 21:32 12.5 MLS/HR Famotidine 10 mg HS PO 01/23/25 22:00 01/27/25 21:21 10 MG Gabapentin 300 mg DAILY PO 01/24/25 14:00 01/28/25 09:46 300 MG Diphenhydramine HCl 25 mg DAILY PRN PO 01/25/25 07:45 01/26/25 15:35 25 MG Docusate Sodium 100 mg BID PO 01/25/25 22:00 01/28/25 09:49 100 MG Hydromorphone HCl 0.5 mg Q4HPRN PRN IV 01/25/25 21:15 01/28/25 14:16 0.5 MG Acetaminophen/ Hydrocodone Bitart 1 tab Q6HPRN PRN PO 01/26/25 03:30 01/28/25 14:45 1 TAB Multivit/Ca Carb/ B Cmplx/FA/Prenat 1 tab DAILY PO 01/27/25 10:00 01/28/25 09:46 1 TAB Diphenhydramine HCl 25 mg Q8HP PO 01/26/25 22:00 01/28/25 14:16 25 MG objective Chronically ill, pale NAD He was sleeping but rthen woke up and asked for pain medicicine Lungs CTA CV: RR, S4 gallop is present Abdomen: soft, non tender, normal intensity BS No leg edema Right arm has no edema, erythema or visible lesions Neuro: WNL laboratory and microbiology Laboratory Tests 01/27/25 06:59 01/21/25 02:15 Test 01/21/25 02:15 Range/Units Serum Glucose 101 74-106 mg/dL Assessment/Plan Assessment/Plan 1. ESRD on HD 2. HTN 3, Anemia of CKD 4. Right arm pain, no clinical evidence of source of pain 5. Chronic pain 6. Chronic systolic CHF 7. Hyperphosphatemia 8. Secondary hyperparathyroidism 9. Metabolic acidosis 10. Azotemia Plan: s/p HD Wednesday Next HD on Wednesday if still in house continue on MWF schedule while in house Sevelamer 4 tabs TID with meals Continue Metoprolol and hydralazine Continue Lipitor Continue renaVite [facility] post HD as needed , goal Hb: 10-11 g/dl low K diet Dietary Evaluation Review Comments: [facility] Monitor and encourage PO intakes to meet his needs Hemodialysis pending Expected Outcomes/Goals: free from uremic syndrome, maintain Wt Plan discussed with: Patient BHAVESH MCDONNELL MD Jan 28, 2025 14:55
[2025-01-28 17:00] VITALS: BP 122/89; PULSE 77; RESP 17; TEMP 98.2; O2SAT 94
== END 2025-01-28 19:40 | DRG 299 ==
LOC: EDBD 23:40 → ER 23:40 → OVERFLOW 01-21 04:07 → TELE-WESTW 01-21 05:33
PROVIDERS: ADMIT Family Medicine; ATTEND Family Medicine
PROC: 5A1D70Z Performance of Urinary Filtration, Intermittent, Less than 6 Hours Per Day (ICD-10-PCS; principal; 2025-01-24)
PROC: 5A1D70Z Performance of Urinary Filtration, Intermittent, Less than 6 Hours Per Day (ICD-10-PCS; 2025-01-26)
DX: I82.611 Acute embolism and thrombosis of superficial veins of right upper extremity (principal); N18.6 End stage renal disease; M46.26 Osteomyelitis of vertebra, lumbar region; I50.22 Chronic systolic (congestive) heart failure; E87.20 Acidosis, unspecified; I13.2 Hypertensive heart and chronic kidney disease with heart failure and with stage 5 chronic kidney disease, or end stage renal disease; N25.81 Secondary hyperparathyroidism of renal origin; I82.C11 Acute embolism and thrombosis of right internal jugular vein; E11.69 Type 2 diabetes mellitus with other specified complication; M46.46 Discitis, unspecified, lumbar region; I25.10 Atherosclerotic heart disease of native coronary artery without angina pectoris; I25.5 Ischemic cardiomyopathy; D63.1 Anemia in chronic kidney disease; G89.29 Other chronic pain; E83.39 Other disorders of phosphorus metabolism; E11.22 Type 2 diabetes mellitus with diabetic chronic kidney disease; E11.40 Type 2 diabetes mellitus with diabetic neuropathy, unspecified; F41.9 Anxiety disorder, unspecified; J45.909 Unspecified asthma, uncomplicated; F32.A Depression, unspecified; F17.210 Nicotine dependence, cigarettes, uncomplicated; E78.00 Pure hypercholesterolemia, unspecified; Z99.2 Dependence on renal dialysis; Z98.61 Coronary angioplasty status; I25.2 Old myocardial infarction; Z86.718 Personal history of other venous thrombosis and embolism; Z79.899 Other long term (current) drug therapy; Z79.02 Long term (current) use of antithrombotics/antiplatelets; Z79.01 Long term (current) use of anticoagulants; Z76.5 Malingerer [conscious simulation]; Z79.4 Long term (current) use of insulin; Z83.3 Family history of diabetes mellitus; Z82.49 Family history of ischemic heart disease and other diseases of the circulatory system
CPT/HCPCS: 36415; 71045; 80048; 80074; 80202; 82565; 84484; 85025; 87081; 90935; 93971; 96365; 97110; 97116; 97163; 97530; G0378; J7060

== ENCOUNTER 2025-01-29 13:09 | Inpatient (IN) | payer MEDICAID, MEDICARE ==
[~2025-01-29] VITALS: Ht 172.7 cm; Wt 72.3 kg
--- NOTE | 2025-01-29 13:42 | ED.PDOC ---
GI ASSESSMENT HPI Comments 54y M who presents to the ED via EMS for chief complaint of GI bleed. EMS states pt is resident at [facility] and states he told staff he has blood in [facility] earlier this afternoon and EMS was called. EMS notes pt states blood is not bright red or dark but a consistency in between. EMS arrived on scene and noted stable vitals and brought to the ED. Pt otherwise states he has CKD and is on dialysis wednesday, and Sat. Pt otherwise states he started to not feel well since last yesterday when he received lactulose while at . Pt states he was discharged from yesterday after being placed on eliquis for blood clots in arms. Pt also noted to be cefepime for spinal infection. Pt otherwise has only noted BP of 152/72 but otherwise has noted stable vitals. Pt otherwise denies any other symptoms at this time. Chief Complaint: GI Bleed Time Seen by MD: 13:38 Primary Care Provider: NO CURRENT PRIMARY Reviewed Notes: Medications, Allergies Allergies: Coded Allergies: No Known Drug Allergy (Verified Allergy, Unknown, 01/14/25) pt couldn't recall a name of an "antibiotic for pneumonia that caused him itching"' Home Meds Active Scripts Apixaban Base (ELIQUIS) 5 Mg Tab, 5 MG PO BID for 90 Days, #180 TAB Prov:BUSTER BORREGO RESIDENT 01/12/25 Trazodone Hcl (Trazodone Hcl) 150 Mg Tab, 1 TAB PO QPM for 30 Days, #30 TAB 1 Refill Prov:SAGEBLAIR RESIDENT 12/05/24 Ticagrelor Base (Brilinta) 60 Mg Tab, 60 MG PO BID for 30 Days, #60 TAB Prov:SAGEBLAIR RESIDENT 12/05/24 Sevelamer Carbonate (Renvela) 800 Mg Tab, 3 TAB PO TID for 30 Days, #270 TAB 3 Refills Prov:ALONABLAIR RESIDENT 12/05/24 Nifedipine (Nifedipine Er) 90 Mg Tab, 1 TAB PO DAILY for 30 Days, #30 TAB 5 Refills Prov:ALONABLAIR RESIDENT 12/05/24 Metoprolol Succinate (Metoprolol Succinate Er) 50 Mg Tab, 1 TAB PO DAILY for 30 Days, #30 TAB 5 Refills Prov:ALONABLAIR RESIDENT 12/05/24 Insulin Lispro (Insulin Lispro) 100 Unit/Ml Inj, 100 UNIT IJ TID for 30 Days, #3 INJ 2-3 units subcutaneous t.i.d.. Always check your blood glucose before administering insulin, If blood sugar < 60 - have 15-20 g of glucose (8 oz cranberry juice, orange juice, apple juice, small carton of milk) go to the ER/call 911 Prov:BLAIR SAGE [facility] 12/05/24 Insulin Glargine (Lantus Solostar) 100 Unit/Ml Inj, 100 UNIT SC QPM for 30 Days, #3 INJ 15 units in the evening. Always check your blood glucose before administering insulin, If blood sugar < 60 - have 15-20 g of glucose (8 oz cranberry juice, orange juice, apple juice, small carton of milk) go to the ER/call 911 Prov:BLAIR SAGE [facility] [place] 12/05/24 Hydralazine HCl (Hydralazine Hydrochloride) 50 Mg Tab, 50 MG PO TID for 30 Days, #90 TAB Prov:BLAIR SAGE [facility] [place] 12/05/24 Folic Acid-Vitamin B6-Vitamin (B Complex/Folic Acid) Tab, 1 CAP OR DAILY for 30 Days, #30 TAB Prov:BLAIR SAGE [facility] [place] 12/05/24 Atorvastatin Calcium (ATORVASTATIN CALCIUM) 40 Mg Tab, 1 TAB PO DAILY for 30 Da ys, #30 TAB 5 Refills Prov:BLAIR SAGE [facility] [place] 12/05/24 Albuterol Sulfate (Albuterol Sulfate) 0.083 % Neb, 1 VIAL NEB Q4HPRN PRN for 30 Days, #50 VIAL Prov:BLAIR SAGE [facility] [place] 12/05/24 Trazodone HCl (Trazodone Hydrochloride) 50 Mg Tab, 50 MG PO HS for 20 Days, #20 TAB 1 Refill Prov:CELSO HARRIS RESDIENT 08/16/24 Diphenhydramine HCl (Allergy Relief) 25 Mg/10 Ml Liq, 25 MG PO BID for 15 Days, #30 LIQ 1 Refill Prov:CELSO HARRIS RESDIENT 08/01/24 Diphenhydramine-Zinc Acetate (Benadryl Cream) 1 Applic Ap, 1 APPLIC TOP Q6HPRN PRN for 30 Days, #120 APPLIC Prov:ALANA CANNON RESIDENT 07/30/23 Acetaminophen (Acetaminophen) 325 Mg Tab, 650 MG PO Q6HP PRN for 30 Days, #240 TAB Prov:ALANA CANNON RESIDENT 07/30/23 Ergocalciferol (VITAMIN D 70076 UNIT) 50,000 [place], [address] UNIT PO Q7D for 30 Days, #10 CAP Prov:ALANA CANNON RESIDENT 07/30/23 Reported Medications Hydrocodone-Acetaminophen (Hydrocodone Bitartrate/AC 10-325 mg) 1 Tab Tab, 1 TAB PO QID, TAB 08/01/24 Lorazepam (ATIVAN TABLET) 0.5 Mg Tb, 1 TAB PO TID PRN for ANXIETY, #90 TAB 10/16/23 Patients Own Medication (PATIENTS OWN MEDICATION) ., 1 PATCH TD DAILY PTS OWN MED-OBTAIN FROM PT AND SEND TO RX DRUG: FREQ: RX# EXP: DATE DISP: TECH: RPH: 10/16/23 Sevelamer Carbonate (Sevelamer Carbonate) 800 Mg Tab, 5 TAB PO TIDWM, TAB 10/16/23 Trazodone Hcl (Trazodone Hcl) 150 Mg Tab, 150 MG PO for for sleep, MG 09/19/23 Information Source: Patient, Emergency Med Personnel Mode of Arrival: EMS Brought in by: EMS Timing: Hours Duration: Since onset Prehospital treatment: None Quality: Aching Vomitus: None Stool: Blood Streaked Severity: Moderate Recent: Antibiotics Recent Hx of: Diabetes, Current anticoag use Pain Location: None Modifying Factors: Nothing Associated sign and symptoms: Blood in Stool Past Medical History PAST MEDICAL HISTORY: Anxiety, Asthma, CAD, CHF, Depression, DM, ESRD, High Lipids, HTN, [place] Surgical History: Pacemaker, PTCA Family History Family History: Reviewed,noncontributory to illness, Family hx of DM, Family hx of heart razia, Family hx of HTN Social History Smoker: Cigarettes Alcohol: Occasionally Drugs: Cocaine Lives In: Home Constitutional: denies: chills, diaphoresis, fatigue, fever, malaise, sweats, weakness, others EENTM: denies: blurred vision, double vision, ear bleeding, ear discharge, ear drainage, ear pain, ear ringing, eye pain, eye redness, hearing loss, mouth pain, mouth swelling, nasal discharge, nose bleeding, nose congestion, nose pain, photophobia, tearing, throat pain, throat swelling, voice changes, others Respiratory: denies: cough, hemoptysis, orthopnea, SOB at rest, shortness of breath, SOB with excertion, stridor, wheezing, others Cardiovascular: denies: chest pain, dizzy spells, diaphoresis, Dyspnea on exertion, edema, irregular heart beat, left arm pain, lightheadedness, palpitations, PND, syncope, others Gastrointestinal: reports: blood streaked bowels; denies: abdomen distended, abdominal pain, constipated, diarrhea, dysphagia, difficulty swallowing, hematemesis, melena, nausea, poor appetite, poor fluid intake, rectal bleeding, rectal pain, vomiting, others Genitourinary: denies: burning, dysuria, flank pain, frequency, hematuria, inco ntinence, penile discharge, penile sore, pain, testicle pain, testicle swelling, urgency, others Neurological: denies: dizziness, fainting, headache, left sided numbness, left sided weakness, numbness, paresthesia, pre-existing deficit, right sided numbness, right sided weakness, seizure, speech problems, tingling, tremors, weakness, others Musculoskeletal: denies: back pain, gout, joint pain, joint swelling, muscle pain, muscle stiffness, neck pain, others Integumetry: denies: bruises, change in color, change in hair/nails, dryness, laceration, lesions, lumps, rash, wounds, others Allergic/Immunocompromised: denies: Difficulty Healing, Frequent Infections, Hives, Itching, others Hematologic/Lymphatic: denies: anemia, blood clots, easy bleeding, easy bruising, swollen glands, others Endocrine: denies: excessive hunger, excessive sweating, excessive thirst, excessive urination, flushing, intolerance to cold, intolerance to heat, unexplained weight gain, unexplained weight loss, others Psychiatric: denies: anxiety, bipolar disorder, depression, hopeless, panic disorder, schizophrenia, sleepless, suicidal, others All Other Systems: Reviewed and Negative Physical Exam General Appearance: Moderate Distress HEENT: Pale Conjuntivae (L), Pale Conjuntivae (R), Pharynx Normal, TMs Normal Neck: Full Range of Motion, Non-Tender, Normal, Normal Inspection Respiratory: Chest Non-Tender, Lungs Clear, No Accessory Muscle Use, No Respiratory Distress, Normal Breath Sounds Cardiovascular: No Edema, No JVD, No Murmur, No Gallop, Normal Peripheral Pulses, Regular Rate/Rhythm Breast Exam: Deferred Gastrointestinal: Distended, Hepatomegaly, Non Tender, No Pulsatile Mass, Normal Bowel Sounds, Soft Genitalia: Deferred Pelvic: Deferred Rectal: Deferred Extremities: No calf tenderness, Normal capillary refill, No pedal edema Musculoskeletal : Apperance: Normal Neurologic: Alert, data processing specialist II-XII nml as Tested, Motor Weakness, Normal Affect, Normal Mood, No Sensory Deficits Cerebellar Function: Normal Reflexes: Normal Skin: Dry, Pallor, Warm Lymphatic: No Adenopathy Was a procedure done? Was a procedure done?: No GI differential Dx Differential Diagnosis: Diverticular disease, Esophagitis, Gastritis/PUD, Gastroenteritis, GI hemorrhage, Inflammatory BD, Pancreatitis, Dehydration, Ischemic Bowel, Stress Ulcer X-Ray, Labs, Meds, VS Vital Signs Date Time Temp Pulse Resp B/P (MAP) Pulse Ox O2 Delivery O2 Flow Rate FiO2 01/29/25 14:15 69 16 153/85 01/29/25 13:16 98.0 62 18 152/72 96 98.0 Lab Test 01/29/25 13:55 Range/Units White Blood Count 4.6 4.4-10.8 10^3/uL Red Blood Count 2.35 L 4.5-5.90 10^6/uL Hemoglobin 6.9 #*L 13.5-17.5 g/dL Hematocrit 21.1 #L 41.0-53.0 % Mean Corpuscular Volume 89.8 80.0-100.0 fL Mean Corpuscular Hemoglobin 29.3 28.0-32.0 pg Mean Corpuscular Hemoglobin Concent 32.6 32.0-36.0 g/dL Red Cell Distribution Width 17.5 H 11.8-14.3 % Platelet Count 257 140-450 10^3/uL Mean Platelet Volume 8.3 6.9-10.8 fL Neutrophils (%) (Auto) 65.5 37.0-80.0 % Lymphocytes (%) (Auto) 15.2 10.0-50.0 % Monocytes (%) (Auto) 10.1 0.0-12.0 % Eosinophils (%) (Auto) 7.2 H 0.0-7.0 % Basophils (%) (Auto) 2.0 0.0-2.0 % Neutrophils # (Auto) 3.0 1.6-8.6 10 ^3/uL Lymphocytes # (Auto) 0.7 0.4-5.4 10 ^3/uL Monocytes # (Auto) 0.5 0-1.3 10 ^3/uL Eosinophils # (Auto) 0.3 0-0.8 10 ^3/uL Basophils # (Auto) 0.1 0-0.2 10 ^3/uL Nucleated Red Blood Cells 0.1 % Prothrombin Time 17.4 H 9.3-11.8 sec Prothrombin Time INR 1.73 H 0.9-1.15 Activated Partial Thromboplast Time 39.9 H 24.5-34.5 SEC Sodium Level 133 L 136-145 mmol/L Potassium Level 7.3 *H 3.5-5.1 mmol/L Chloride Level 91 L 98-107 mmol/L Carbon Dioxide Level 24 20-31 mmol/L Anion Gap 18 H 5-15 Blood Urea Nitrogen 105 *H 9-23 mg/dL Creatinine 10.87 #*H 0.700-1.30 mg/dL Glomerular Filtration Rate Calc 5 >90 mL/min BUN/Creatinine Ratio 9.7 L 10.0-20.0 Serum Glucose 81 74-106 mg/dL Calcium Level 9.4 8.7-10.4 mg/dL Magnesium Level 3.2 H 1.6-2.6 mg/dL Total Bilirubin < 0.2 L 0.2-1.0 mg/dL Aspartate Amino Transferase (AST) 14 13-40 U/L Alanine Aminotransferase (ALT) 11 7-40 U/L Alkaline Phosphatase 106 46-116 U/L Ammonia < 10 L 11-32 umol/L Total Protein 7.0 5.7-8.2 g/dL Albumin 4.0 3.2-4.8 g/dL Current Medications Medications (Trade) Dose Ordered Sig/Caroline Route Start Time Stop Time Status Last Admin Hydromorphone HCl (Dilaudid Injection) 0.5 mg ONCE ONCE IV 01/29/25 13:45 01/29/25 13:46 DC 01/29/25 14:15 Ondansetron HCl (Zofran) 4 mg ONCE ONCE IV 01/29/25 13:45 01/29/25 13:46 DC 01/29/25 13:45 IV Hep-Lock was established. The patient's CBC shows a hemoglobin of 6.9 and hematocrit 21 The INR is 1.73 The patient's creatinine is 10.87 The BUN is 105 The patient's potassium is 7.3 The patient is being given dextrose, calcium, insulin and sodium bicarbonate to address the hyperkalemia We are getting a stat nephrology consult The patient was typed and screened We are ordering a unit of packed red blood cells to address the severe anemia at this time The patient will be admitted to the hospitalist. The patient understands and agrees with the management. Images Reviewed?: Images reviewed and evaluated by me Time of 1ST Reevaluation: 14:10 Reevaluation 1ST: Unchanged Patient Education/Counseling: Diagnosis, Treatment, Prognosis Family Education/Counseling: No Family Present SEPSIS Sepsis Screen Date sepsis recognized/suspect: Jan 29, 2025 Time Sepsis recognized/suspect: 1323 Recent Procedure: No On Antibiotic Therapy: No Respiratory Rate >20: No Heart Rate >90: No Temp<36 C (96.8 F) or >38.3 C: No SBP <90 or MAP <65 mmHG: No New Acute Mental Status Change: No Is the patient on CPAP, BIPAP,: No Physician Orders Heplock Iv (01/29/25 13:36) Grocery Cashier (01/29/25 13:36) Blood Pressure (01/29/25 13:36) Pulse Oximetry (01/29/25 13:36) Electrocardigram (01/29/25 13:36) Obtain Consent For: (01/29/25 14:56) Packedcells -Active Bleeding (01/29/25 14:56) Type And Screen (01/29/25 14:56) Administer Blood Products UD (01/29/25 14:56) Sodium Bicarb 50meq/50ml Vial (01/29/25 15:00) Calcium Gluc 1,000mg/50ml-Ns (01/29/25 15:00) Obtain Consent For Anesthesia (01/29/25 14:56) Dextrose 50% Syringe (01/29/25 15:00) Insulin R (Human) (Insulin R) (01/29/25 15:00) Vital Signs Date Time Temp Pulse Resp B/P (MAP) Pulse Ox O2 Delivery O2 Flow Rate FiO2 01/29/25 14:15 69 16 153/85 01/29/25 13:16 98.0 62 18 152/72 96 98.0 Laboratory Tests Test 01/29/25 13:55 White Blood Count 4.6 10^3/uL (4.4-10.8) Medications Medications Dose Ordered Sig/Caroline Route Start Time Stop Time Status Last Admin Dose Admin Hydromorphone HCl 0.5 mg ONCE ONCE IV 01/29/25 13:45 01/29/25 13:46 DC 01/29/25 14:15 Ondansetron HCl 4 mg ONCE ONCE IV 01/29/25 13:45 01/29/25 13:46 DC 01/29/25 13:45 Departure 1 Departure Time of Disposition: 15:03 Impression: Primary Impression: Severe anemia Additional Impressions: ESRD needing dialysis Hyperkalemia Upper GI bleed Disposition: ADMITTED INPATIENT Admit to: [facility] Condition: Fair Critical Care Note Critical Care Time?: Yes (45 min-critical care time only) Stability Stability form required: Yes Unstable for transfer: Telemetry monitoring (Telemetry monitoring required), ED Physician Assesment (Clinical assesment) Heart Score Heart Score: Heart Score Response (Comments) Value History N/A 0 EKG N/A 0 Age N/A 0 Risk Factors N/A 0 Troponin N/A 0 Total 0 I personally scribed for SANDRA DOYLE MD ([email or web address]) on 01/29/25 at 13:42. Electronically submitted by Rocco Gomez ([facility]). SANDRA DOYLE MD Jan 29, 2025 13:42
[2025-01-29] MEDS: ONDANSETRON HCL 4 MG/2 ML VIAL IV ONE (13:45)
[2025-01-29 14:14] LABS: Hematocrit 21.1 % (41.0-53.0); Mean Corpuscular Hemoglobin 29.3 pg (28.0-32.0); Mean Corpuscular Volume 89.8 fL (80.0-100.0); Nucleated Red Blood Cells % 0.1 %
[2025-01-29] MEDS: HYDROmorphone HCL 2 MG/ML VL/or syr IV ONE (14:15)
[2025-01-29 14:18] LABS: INR 1.73 (0.9-1.15); Partial Thromboplastin Time 39.9 SEC (24.5-34.5); Prothrombin Time 17.4 sec (9.3-11.8)
[2025-01-29 14:20] LABS: Hemoglobin 6.9 g/dL (13.5-17.5)
[2025-01-29 14:22] VITALS: PULSE 69; RESP 16; O2SAT 98
[2025-01-29 14:33] LABS: Alanine Aminotransferase 11 U/L (7-40); Albumin 4.0 g/dL (3.2-4.8); Alkaline Phosphatase 106 U/L (46-116); Anion Gap 18 (5-15); BUN/Creatinine Ratio 9.7 (10.0-20.0); Calcium 9.4 mg/dL (8.7-10.4); Carbon Dioxide 24 mmol/L (20-31); Glucose 81 mg/dL (74-106); Sodium 133 mmol/L (136-145); Total Protein 7.0 g/dL (5.7-8.2)
[2025-01-29 14:34] LABS: Chloride 91 mmol/L (98-107); Magnesium 3.2 mg/dL (1.6-2.6)
[2025-01-29 14:35] LABS: Bilirubin, Total < 0.2 mg/dL (0.2-1.0)
[2025-01-29 14:36] LABS: Blood Urea Nitrogen 105 mg/dL (9-23); Potassium 7.3 mmol/L (3.5-5.1)
[2025-01-29] MEDS: InsuLIN REG 1unit/0.01ml Soln (100units/ml) IV ONE (15:00)
[2025-01-29] MEDS: SODIUM BICARB 8.4% 50Meq/50ml SYR Vial IV ONE (15:00)
[2025-01-29] MEDS: DEXTROSE (50%) 50ML SYRG IV ONE (15:00)
[2025-01-29] MEDS: CALCIUM GLUC 1,000mg/50ml-NS 50 ML IV ONE (15:00)
[2025-01-29] MEDS ORDERED: DEXTROSE (50%) 50ML SYRG IV PRN (15:15)
[2025-01-29 16:11] LABS: Iron 77.0 ug/dL (65-175)
[2025-01-29 16:16] LABS: Total Iron Binding Capacity 196.0 ug/dL (250-425)
--- NOTE | 2025-01-29 16:33 | DVHHP2 ---
History of Present Illness Reason for Visit: Gastrointestinal hemorrhage History of Present Illness The patient is a 54-year-old male with multiple past medical history including Coronary artery disease, CHF, diabetes mellitus, end-stage renal disease on hemodialysis, and hypertension who presented to [facility] ED with complaint of gastrointestinal bleed. Patient reports that he was discharged from [facility] to [facility] [place]. He informed staff member that he has blood in stool at this afternoon and EMS were called. Patient described blood as bright red, dark with hematemesis. Patient was seen and evaluated in the ED, laboratory data shows WBC 4.6, hemoglobin 6.9, hematocrit 21.1, platelets 257, sodium 133, potassium 7.3, BUN 105, creatinine 10.87, GFR 5, glucose 81, calcium 9.4, magnesium 3.2, ammonia 10, PT 17.4, INR 1.73, APTT 29.9, blood pressure 153/85, heart rate 69, temperature 98.0 F, O2 saturation 96% on room air. Type and screen 1 unit PRBC. Please see medication orders section in the computer. On my assessment, patient denies headache, chest pain, dizziness, currently on oxygen, no abdominal pain, diarrhea, nausea, vomiting, fever, chills. Patient was admitted for further evaluation and medical management. Past Medical History Anxiety, Asthma, CAD, CHF, Depression, DM, ESRD, High Lipids, HTN, MS Past Surgical History Pacemaker, PTCA Family History Reviewed, noncontributory to the management of this case. Past Social History The patient lives at home, denies smoking, alcohol or illicit drugs abuse. Review of Systems Constitutional: Yes: Weakness; No: Fever, Chills, Sweats, Malaise, Other Eyes: No: Pain, Vision change, Conjunctivae inflammation, Eyelid inflammation, Other, Redness ENT: No: Ear pain, Ear discharge, Nose pain, Nose discharge, Nose congestion, Mouth pain, Mouth swelling, Throat pain, Throat swelling, Other Respiratory: No: Cough, Dry, Shortness of breath, SOB with excertion, Wheezing, Hemoptysis, Pleuritic Pain, Sputum, Wheezing, Other Cardiovascular: Other (Pacemaker); No: Chest Pain, Palpitations, Orthopnea, Paroxysmal Noc. Dyspnea, Edema, Lt Headedness Gastrointestinal: Melena, Other (Blood streaked bowels); No: Nausea, Vomiting, Abdominal Pain, Diarrhea, Constipation, Hematochezia Genitourinary: No Dysuria, No Frequency, No Incontinence, No Hematuria, No Retention, No Other Musculoskeletal: No: other, neck pain, shoulder pain, arm pain, back pain, hand pain, leg pain, foot pain Skin: No: Rash, Lesions, Jaundice, Bruising, Other Neurological: No: Weakness, Numbness, Incoordination, Change in speech, Confusion, Seizures, Other Allergies: Coded Allergies: No Known Drug Allergy (Verified Allergy, Unknown, 01/14/25) pt couldn't recall a name of an "antibiotic for pneumonia that caused him itching"' Medications Current Medications Medications Dose Ordered Sig/Caroline Route Start Time Stop Time Status Last Admin Dose Admin Atorvastatin Calcium 10 mg HS PO 01/29/25 22:00 Hydralazine HCl 10 mg Q6HP PRN IV 01/29/25 15:15 Famotidine 20 mg Q2D IV 01/30/25 10:00 Multivit/Ca Carb/ B Cmplx/FA/Prenat 1 tab DAILY PO 01/30/25 10:00 Sevelamer HCl 800 mg TIDWM PO 01/29/25 18:00 Apixaban 5 mg BID PO 01/30/25 10:00 Sodium Chloride 10 ml Q8HR IV 01/29/25 22:00 Acetaminophen/ Hydrocodone Bitart 1 tab Q4HP PRN PO 01/29/25 15:15 Ondansetron HCl 4 mg Q4HP PRN IV 01/29/25 15:15 Docusate Sodium 100 mg BIDPRN PRN PO 01/29/25 15:15 Acetaminophen 650 mg Q6HP PRN PO 01/29/25 15:15 Diagnostic Test (Pha) 1 strip ACHS 01/29/25 17:00 Insulin Human Regular ACHS SC 01/29/25 17:00 Dextrose 50 ml UD PRN IV 01/29/25 15:15 Exam Vital Signs Vital Signs Date Time Temp Pulse Resp B/P (MAP) Pulse Ox O2 Delivery O2 Flow Rate FiO2 01/29/25 16:30 61 01/29/25 14:22 16 98 Nasal Cannula* 2 28 01/29/25 14:22 98.5 153/85 (107) 98.5 General Appearance: Alert, Oriented X3, Cooperative, No acute distress HEENT: Atraumatic, PERRLA, EOMI, Mucous membr. moist/pink Respiratory: Clear to auscultation, Normal air movement Cardiovascular: Normal S1, Normal S2, No murmurs, Other (Pacemaker) Abdominal: Normal bowel sounds, Soft, No tenderness, No hepatospenomegaly, No masses Extremities: No clubbing, No cyanosis, No edema, Normal pulses, No tenderness/swelling Skin: No rashes, No breakdown, No significant lesion Neuro: Normal speech, Normal tone, Sensation intact, Cranial nerves 3-12 NL, Reflexes 2+, Other (Generalized weakness) Psych/Mental Status: Mental status NL, Mood NL Labs/Xrays Labs Test 01/29/25 15:28 01/29/25 13:55 Range/Units POC Glucose 121 H 70-106 mg/dl White Blood Count 4.6 4.4-10.8 10^3/uL Red Blood Count 2.35 L 4.5-5.90 10^6/uL Hemoglobin 6.9 #*L 13.5-17.5 g/dL Hematocrit 21.1 #L 41.0-53.0 % Mean Corpuscular Volume 89.8 80.0-100.0 fL Mean Corpuscular Hemoglobin 29.3 28.0-32.0 pg Mean Corpuscular Hemoglobin Concent 32.6 32.0-36.0 g/dL Red Cell Distribution Width 17.5 H 11.8-14.3 % Platelet Count 257 140-450 10^3/uL Mean Platelet Volume 8.3 6.9-10.8 fL Neutrophils (%) (Auto) 65.5 37.0-80.0 % Lymphocytes (%) (Auto) 15.2 10.0-50.0 % Monocytes (%) (Auto) 10.1 0.0-12.0 % Eosinophils (%) (Auto) 7.2 H 0.0-7.0 % Basophils (%) (Auto) 2.0 0.0-2.0 % Neutrophils # (Auto) 3.0 1.6-8.6 10 ^3/uL Lymphocytes # (Auto) 0.7 0.4-5.4 10 ^3/uL Monocytes # (Auto) 0.5 0-1.3 10 ^3/uL Eosinophils # (Auto) 0.3 0-0.8 10 ^3/uL Basophils # (Auto) 0.1 0-0.2 10 ^3/uL Nucleated Red Blood Cells 0.1 % Prothrombin Time 17.4 H 9.3-11.8 sec Prothrombin Time INR 1.73 H 0.9-1.15 Activated Partial Thromboplast Time 39.9 H 24.5-34.5 SEC Sodium Level 133 L 136-145 mmol/L Potassium Level 7.3 *H 3.5-5.1 mmol/L Chloride Level 91 L 98-107 mmol/L Carbon Dioxide Level 24 20-31 mmol/L Anion Gap 18 H 5-15 Blood Urea Nitrogen 105 *H 9-23 mg/dL Creatinine 10.87 #*H 0.700-1.30 mg/dL Glomerular Filtration Rate Calc 5 >90 mL/min BUN/Creatinine Ratio 9.7 L 10.0-20.0 Serum Glucose 81 74-106 mg/dL Calcium Level 9.4 8.7-10.4 mg/dL Magnesium Level 3.2 H 1.6-2.6 mg/dL Iron Level 77 65-175 ug/dL Total Iron Binding Capacity 196 L 250-425 ug/dL Percent Iron Saturation 39.3 20-55 % Ferritin 604.5 H 22-322 ng/mL Total Bilirubin < 0.2 L 0.2-1.0 mg/dL Aspartate Amino Transferase (AST) 14 13-40 U/L Alanine Aminotransferase (ALT) 11 7-40 U/L Alkaline Phosphatase 106 46-116 U/L Ammonia < 10 L 11-32 umol/L Total Protein 7.0 5.7-8.2 g/dL Albumin 4.0 3.2-4.8 g/dL SEPSIS Sepsis Screen Date sepsis recognized/suspect: Jan 29, 2025 Time Sepsis recognized/suspect: 1421 Recent Procedure: No On Antibiotic Therapy: Yes Respiratory Rate >20: No Heart Rate >90: No Temp<36 C (96.8 F) or >38.3 C: No SBP <90 or MAP <65 mmHG: No New Acute Mental Status Change: No Is the patient on CPAP, BIPAP,: No Physician Orders Heplock Iv (01/29/25 13:36) Seam Sewer (01/29/25 13:36) Blood Pressure (01/29/25 13:36) Pulse Oximetry (01/29/25 13:36) Electrocardigram (01/29/25 13:36) Obtain Consent For: (01/29/25 14:56) Packedcells -Active Bleeding (01/29/25 14:56) Type And Screen (01/29/25 14:56) Administer Blood Products UD (01/29/25 14:56) Obtain Consent For Anesthesia (01/29/25 14:56) Atorvastatin (Lipitor) (01/29/25 22:00) Hydralazine Injection (Apresoline Inject (01/29/25 15:15) Famotidine Injection (Pepcid Injection) (01/30/25 10:00) B-Complex W/ C & Folic Tablet (Nephro-Vi (01/30/25 10:00) Sevelamer (Renagel) (01/29/25 18:00) Allergies (01/29/25 15:01) Code Status (01/29/25 15:01) Renal Standard(2gna,3gk,Lopho) (01/29/25 Dinner) Sodium Chloride Lock (Saline Lock Ns) (01/29/25 22:00) Oxygen Per Hour (01/29/25 15:01) Hydrocodone-Acet 5/325mg Tab ([place] 5/32 (01/29/25 15:15) Ondansetron Hcl (Zofran) (01/29/25 15:15) Docusate Sodium Capsule (Colace Capsule) (01/29/25 15:15) Complete Blood Count (01/30/25 04:00) Comprehensive Metabolic Panel (01/30/25 04:00) Condition: Serious (01/29/25 15:01) Acetaminophen Tablet (Tylenol Tablet) (01/29/25 15:15) Bedrest With Bathroom Privileg (01/29/25 15:01) Maintain Bed Rest (01/29/25 15:01) Sequential Compression Device (01/29/25 ) Glucose Blood (Accu-Chek Comfort Curve T (01/29/25 17:00) Insulin R (Human) (Insulin R) (01/29/25 17:00) Dextrose 50% Syringe (01/29/25 15:15) Communication Order (01/29/25 15:14) *Dr. Rhonda Longoria -Reg Mcclain (01/29/25 15:14) Hemodialysis Orders (01/29/25 15:29) Dialysis Nursing Message (01/29/25 15:29) Sodium Chloride 0.9% (01/29/25 15:30) Document Fluid Input And Outpu (01/29/25 15:29) Epoetin Juan Luis-Epbx (Retacrit) (01/29/25 21:00) Apixaban (Eliquis) (01/30/25 10:00) Vital Signs Date Time Temp Pulse Resp B/P (MAP) Pulse Ox O2 Delivery O2 Flow Rate FiO2 01/29/25 16:30 61 01/29/25 14:22 69 16 98 Nasal Cannula* 2 28 01/29/25 14:22 98.5 69 16 153/85 (107) 98 98.5 01/29/25 14:15 69 16 153/85 01/29/25 13:16 98.0 62 18 152/72 96 98.0 Laboratory Tests Test 01/29/25 13:55 White Blood Count 4.6 10^3/uL (4.4-10.8) Medications Medications Dose Ordered Sig/Caroline Route Start Time Stop Time Status Last Admin Dose Admin Calcium Gluconate/ Sodium Chloride 50 ml @ 100 mls/hr ONCE ONCE IV 01/29/25 15:00 01/29/25 15:29 DC 01/29/25 15:00 100 MLS/HR Dextrose 50 ml ONCE ONCE IV 01/29/25 15:00 01/29/25 15:01 DC 01/29/25 15:00 50 ML Hydromorphone HCl 0.5 mg ONCE ONCE IV 01/29/25 13:45 01/29/25 13:46 DC 01/29/25 14:15 0.5 MG Insulin Human Regular 5 units ONCE ONCE IV 01/29/25 15:00 01/29/25 15:01 DC 01/29/25 15:00 5 UNITS Ondansetron HCl 4 mg ONCE ONCE IV 01/29/25 13:45 01/29/25 13:46 DC 01/29/25 13:45 4 MG Sodium Bicarbonate 50 ml ONCE ONCE IV 01/29/25 15:00 01/29/25 15:01 DC 01/29/25 15:00 50 ML Assessment/Plan Assessment/Plan Severe anemia Electrolyte imbalance Generalized weakness Upper GI bleed End-stage renal disease needing dialysis Plan 1. Admit to telemetry unit 2. Breathing treatment 3. Pain control management 4. Management of fluids and electrolytes 5. Consultation for hospitalist/nephrology 6. Diagnostic tests chest x-ray 7. DVT prophylaxis-on SCDs 8. Repeat labs CBC, CMP in a.m. 9. Continue with current medical management 10. Treatment plan discussed with patient and RN. Patient verbalized understa nding. Plan discussed with: Patient, Other (RN) My Orders Orders - HOWARD NORTH DNP Procedure Category Date Status Time Atorvastatin (Lipitor) PHA 01/29/25 In Process 22:00 Hydralazine Injection PHA 01/29/25 In Process (Apresoline Inject 15:15 Famotidine Injection PHA 01/30/25 In Process (Pepcid Injection) 10:00 B-Complex W/ C & PHA 01/30/25 In Process Folic Tablet 10:00 Sevelamer (Renagel) PHA 01/29/25 In Process 18:00 Allergies JADE 01/29/25 In Process 15:01 Code Status CODE 01/29/25 Transmitted 15:01 Renal DIET 01/29/25 Transmitted Standard(2gna,3gk,Lopho) Dinner Sodium Chloride Lock PHA 01/29/25 In Process (Saline Lock Ns) 22:00 Oxygen Per Hour RT 01/29/25 Transmitted 15:01 Hydrocodone-Acet PHA 01/29/25 In Process 5/325mg Tab ([place]anse[place]ort 15:15 Ondansetron Hcl PHA 01/29/25 In Process (Zofran) 15:15 Docusate Sodium PHA 01/29/25 In Process Capsule (Colace 15:15 Complete Blood Count LAB 01/30/25 Verified 04:00 Comprehensive LAB 01/30/25 Verified Metabolic Panel 04:00 Condition: Serious JADE 01/29/25 In Process 15:01 Acetaminophen Tablet PHA 01/29/25 In Process (Tylenol Tablet) 15:15 Bedrest With Bathroom JADE 01/29/25 In Process Privileg 15:01 Maintain Bed Rest JADE 01/29/25 In Process 15:01 Sequential JADE 01/29/25 In Process Compression Device Glucose Blood PHA 01/29/25 In Process (Accu-Chek Comfort 17:00 Insulin R (Human) PHA 01/29/25 In Process (Insulin R) 17:00 Dextrose 50% Syringe PHA 01/29/25 In Process 15:15 Apixaban (Eliquis) PHA 01/30/25 In Process 10:00 Problem List: (1) Severe anemia (2) Electrolyte imbalance (3) Generalized weakness (4) Upper GI bleed (5) End-stage renal disease needing dialysis Date of Service: Jan 29, 2025 Billing Provider: HOWARD NORTH DNP Common Visit Codes: [id number] INP/OBS CARE (HIGH) HOWARD NORTH DNP Jan 29, 2025 16:33
[2025-01-29] MEDS ORDERED: MORPHINE SULFATE INJ 2 MG/ml SYRG IV PRN (16:45)
[2025-01-29] MEDS ORDERED: NITROGLYCERIN 0.4 MG SL TAB SL PRN (16:45)
[2025-01-29] MEDS: SODIUM ZIRCONIUM CYCL 10 GM PAK PO ONE (16:50)
[2025-01-29] MEDS: SODIUM CHL 0.9% 1000 ML BAG XX ONE (16:50)
[2025-01-29] MEDS: InsuLIN REG 1unit/0.01ml Soln (100units/ml) SC SCH (17:00)
[2025-01-29] MEDS: ACCU-CHEK COMFORT CURVE STRIP VI SCH (17:27)
--- NOTE | 2025-01-29 17:41 | DVHINCON2 ---
Date of service: Jan 29, 2025 Referring Physician sandip BELL Reason for Consultation Hyperkalemia, end-stage renal disease History of Present Illness 54-year-old patient with significant history of end-stage renal disease on hemodialysis TTS, hypertension, CHF, who presents to the hospital with complains of rectal bleed associated with prior constipation associated with generalized weakness, no fevers no chills no chest pain. The patient was recently diagnosed with DVT right upper extremity and his on Eliquis. Patient was found to have hyperkalemia of 7.3 on admission. Nephrology is being consulted for further management. Past Medical History Hypertension, CHF, end-stage renal disease, DVT Past Surgical History Hemodialysis access creation Allergies: Coded Allergies: No Known Drug Allergy (Verified Allergy, Unknown, 01/14/25) pt couldn't recall a name of an "antibiotic for pneumonia that caused him itching"' Home Meds Active Scripts Apixaban Base (ELIQUIS) 5 Mg Tab, 5 MG PO BID for 90 Days, #180 TAB Prov:BUSTER BORREGO RESIDENT 01/12/25 Trazodone Hcl (Trazodone Hcl) 150 Mg Tab, 1 TAB PO QPM for 30 Days, #30 TAB 1 Refill Prov:BLAIR SAGE RESIDENT 12/05/24 Ticagrelor Base (Brilinta) 60 Mg Tab, 60 MG PO BID for 30 Days, #60 TAB Prov:BLAIR SAGE RESIDENT 12/05/24 Sevelamer Carbonate (Renvela) 800 Mg Tab, 3 TAB PO TID for 30 Days, #270 TAB 3 Refills Prov:BLAIR SAGE [facility] 12/05/24 Nifedipine (Nifedipine Er) 90 Mg Tab, 1 TAB PO DAILY for 30 Days, #30 TAB 5 Refills Prov:BLAIR SAGE [facility] 12/05/24 Metoprolol Succinate (Metoprolol Succinate Er) 50 Mg Tab, 1 TAB PO DAILY for 30 Days, #30 TAB 5 Refills Prov:BLAIR SAGE RESIDENT 12/05/24 Insulin Lispro (Insulin Lispro) 100 Unit/Ml Inj, 100 UNIT IJ TID for 30 Days, #3 INJ 2-3 units subcutaneous t.i.d.. Always check your blood glucose before administering insulin, If blood sugar < 60 - have 15-20 g of glucose (8 oz cranberry juice, orange juice, apple juice, small carton of milk) go to the ER/call 911 Prov:BLAIR SAGE [facility] 12/05/24 Insulin Glargine (Lantus Solostar) 100 Unit/Ml Inj, 100 UNIT SC QPM for 30 Days, #3 INJ 15 units in the evening. Always check your blood glucose before administering insulin, If blood sugar < 60 - have 15-20 g of glucose (8 oz cranberry juice, orange juice, apple juice, small carton of milk) go to the ER/call 911 Prov:BLAIR SAGE [facility] 12/05/24 Hydralazine HCl (Hydralazine Hydrochloride) 50 Mg Tab, 50 MG PO TID for 30 Days, #90 TAB Prov:BLAIR SAGE [facility] 12/05/24 Folic Acid-Vitamin B6-Vitamin (B Complex/Folic Acid) Tab, 1 CAP OR DAILY for 30 Days, #30 TAB Prov:BLAIR SAGE [facility] 12/05/24 Atorvastatin Calcium (ATORVASTATIN CALCIUM) 40 Mg Tab, 1 TAB PO DAILY for 30 Days, #30 TAB 5 Refills Prov:BLAIR SAGE [facility] 12/05/24 Albuterol Sulfate (Albuterol Sulfate) 0.083 % Neb, 1 VIAL NEB Q4HPRN PRN for 30 Days, #50 VIAL Prov:BLAIR SAGE [facility] 12/05/24 Trazodone HCl (Trazodone Hydrochloride) 50 Mg Tab, 50 MG PO HS for 20 Days, #20 TAB 1 Refill Prov:CELSO HARRIS RESDIENT 08/16/24 Diphenhydramine HCl (Allergy Relief) 25 Mg/10 Ml Liq, 25 MG PO BID for 15 Days, #30 LIQ 1 Refill Prov:CELSO HARRIS RESDIENT 08/01/24 Diphenhydramine-Zinc Acetate (Benadryl Cream) 1 Applic Ap, 1 APPLIC TOP Q6HPRN PRN for 30 Days, #120 APPLIC Prov:ALANA CANNON RESIDENT 07/30/23 Acetaminophen (Acetaminophen) 325 Mg Tab, 650 MG PO Q6HP PRN for 30 Days, #240 TAB Prov:ALANA CANNON RESIDENT 07/30/23 Ergocalciferol (VITAMIN D 79309 UNIT) 50,000 [place], [address] UNIT PO Q7D for 30 Days, #10 CAP Prov:ALANA CANNON RESIDENT 07/30/23 Reported Medications Hydrocodone-Acetaminophen (Hydrocodone Bitartrate/AC 10-325 mg) 1 Tab Tab, 1 TAB PO QID, TAB 08/01/24 Lorazepam (ATIVAN TABLET) 0.5 Mg Tb, 1 TAB PO TID PRN for ANXIETY, #90 TAB 10/16/23 Patients Own Medication (PATIENTS OWN MEDICATION) ., 1 PATCH TD DAILY PTS OWN MED-OBTAIN FROM PT AND SEND TO RX DRUG: FREQ: RX# EXP: DATE DISP: TECH: RPH: 10/16/23 Sevelamer Carbonate (Sevelamer Carbonate) 800 Mg Tab, 5 TAB PO TIDWM, TAB 10/16/23 Trazodone Hcl (Trazodone Hcl) 150 Mg Tab, 150 MG PO for for sleep, MG 09/19/23 Current Medications Current Medications Medications (Trade) Dose Ordered Sig/Caroline Route PRN Reason Start Time Stop Time Status Last Admin Atorvastatin Calcium (Lipitor) 10 mg HS PO 01/29/25 22:00 Hydralazine HCl (Apresoline Injection) 10 mg Q6HP PRN IV SBP>150 01/29/25 15:15 Famotidine (Pepcid Injection) 20 mg Q2D IV 01/30/25 10:00 Multivit/Ca Carb/ B Cmplx/FA/Prenat (Nephro-Evan Tablet) 1 tab DAILY PO 01/30/25 10:00 Sevelamer HCl (Renagel) 800 mg TIDWM PO 01/29/25 18:00 Apixaban (Eliquis) 5 mg BID PO 01/30/25 10:00 Sodium Chloride (Saline Lock Ns) 10 ml Q8HR IV 01/29/25 22:00 Acetaminophen/ Hydrocodone Bitart (Anderson 5/325MG Tab) 1 tab Q4HP PRN PO MODERATE PAIN (4-6 PAIN SCALE) 01/29/25 15:15 Ondansetron HCl (Zofran) 4 mg Q4HP PRN IV NAUSEA / VOMITING 01/29/25 15:15 Docusate Sodium (Colace Capsule) 100 mg BIDPRN PRN PO FOR CONSTIPATION 01/29/25 15:15 Acetaminophen (Tylenol Tablet) 650 mg Q6HP PRN PO PAIN SCALE 1-3 OR TEMP>100.4 10/13/25 15:15 Diagnostic Test (Pha) (Accu-Chek Comfort Curve T) 1 strip ACHS 01/29/25 17:00 01/29/25 17:27 Insulin Human Regular (InsuLIN R) ACHS SC 01/29/25 17:00 Dextrose 50 ml UD PRN IV Blood Sugar LESS THAN 60 01/29/25 15:15 Nitroglycerin (Ntrostat Sublingual) 0.4 mg Q5MINP PRN SL FOR CHEST PAIN 01/29/25 16:45 Morphine Sulfate 2 mg Q30M PRN IV FOR CHEST PAIN 01/29/25 16:45 Family History: Arthritis G8 MOTHER Diabetes mellitus G8 MOTHER G8 SISTER Hypertension G8 MOTHER G8 FATHER Social History He denies smoking alcohol or drug abuse Review of Systems HEENT: Oral mucosa dry Neck no JVD Cardiovascular: Denies for chest pain denies orthopnea or PND Respiratory: Denies cough or shortness of breath Gastrointestinal: Denies for nausea vomiting Musculoskeletal: Denies myalgias Neurological: Denies focal weakness Dermatological: Denies any rash Positive for generalized weakness The rest of the review of systems were reviewed pertinent positives and pertinent negatives are as per HPI up to 12 points review of systems H&P Exam Vital Signs/I&O Vital Sign Date Time Temp Pulse Resp B/P (MAP) Pulse Ox O2 Delivery O2 Flow Rate FiO2 01/29/25 16:30 98.5 69 16 172/48 (89) 100 98.5 01/29/25 14:22 Nasal Cannula* 2 28 Physical Exam HEENT: No evidence of JVD, no oral ulcers. Pulmonary: Lungs are clear on auscultation bilaterally Cardiovascular S1-S2, no S3 or S4 Abdomen: Bowel sounds positive, soft no rebound tenderness Skin: No rash Neurological: Alert, oriented, no focal weakness Labs/Diagnostic Data Labs/Diagnostic Data Laboratory Tests Test 01/29/25 15:28 01/29/25 13:55 Range/Units POC Glucose 121 H 70-106 mg/dl White Blood Count 4.6 4.4-10.8 10^3/uL Red Blood Count 2.35 L 4.5-5.90 10^6/uL Hemoglobin 6.9 #*L 13.5-17.5 g/dL Hematocrit 21.1 #L 41.0-53.0 % Mean Corpuscular Volume 89.8 80.0-100.0 fL Mean Corpuscular Hemoglobin 29.3 28.0-32.0 pg Mean Corpuscular Hemoglobin Concent 32.6 32.0-36.0 g/dL Red Cell Distribution Width 17.5 H 11.8-14.3 % Platelet Count 257 140-450 10^3/uL Mean Platelet Volume 8.3 6.9-10.8 fL Neutrophils (%) (Auto) 65.5 37.0-80.0 % Lymphocytes (%) (Auto) 15.2 10.0-50.0 % Monocytes (%) (Auto) 10.1 0.0-12.0 % Eosinophils (%) (Auto) 7.2 H 0.0-7.0 % Basophils (%) (Auto) 2.0 0.0-2.0 % Neutrophils # (Auto) 3.0 1.6-8.6 10 ^3/uL Lymphocytes # (Auto) 0.7 0.4-5.4 10 ^3/uL Monocytes # (Auto) 0.5 0-1.3 10 ^3/uL Eosinophils # (Auto) 0.3 0-0.8 10 ^3/uL Basophils # (Auto) 0.1 0-0.2 10 ^3/uL Nucleated Red Blood Cells 0.1 % Prothrombin Time 17.4 H 9.3-11.8 sec Prothrombin Time INR 1.73 H 0.9-1.15 Activated Partial Thromboplast Time 39.9 H 24.5-34.5 SEC Sodium Level 133 L 136-145 mmol/L Potassium Level 7.3 *H 3.5-5.1 mmol/L Chloride Level 91 L 98-107 mmol/L Carbon Dioxide Level 24 20-31 mmol/L Anion Gap 18 H 5-15 Blood Urea Nitrogen 105 *H 9-23 mg/dL Creatinine 10.87 #*H 0.700-1.30 mg/dL Glomerular Filtration Rate Calc 5 >90 mL/min BUN/Creatinine Ratio 9.7 L 10.0-20.0 Serum Glucose 81 74-106 mg/dL Calcium Level 9.4 8.7-10.4 mg/dL Magnesium Level 3.2 H 1.6-2.6 mg/dL Iron Level 77 65-175 ug/dL Total Iron Binding Capacity 196 L 250-425 ug/dL Percent Iron Saturation 39.3 20-55 % Ferritin 604.5 H 22-322 ng/mL Total Bilirubin < 0.2 L 0.2-1.0 mg/dL Aspartate Amino Transferase (AST) 14 13-40 U/L Alanine Aminotransferase (ALT) 11 7-40 U/L Alkaline Phosphatase 106 46-116 U/L Ammonia < 10 L 11-32 umol/L Total Protein 7.0 5.7-8.2 g/dL Albumin 4.0 3.2-4.8 g/dL Assessment Assessment: 1. End-stage renal disease on hemodialysis TTS 2. Severe hyperkalemia 3. Rectal bleed 4. Anemia of blood loss acute and end-stage renal disease 5. CHF 6. Hypertension Plan: Stat dialysis has been called, 1K bath. GI bleed management as per primary team/GI Monitor H&H transfuse as needed Schedule dialysis for TTS Hold off on antihypertensive meds for now Javed will be given for goal hemoglobin 10-11 Thank you very much for allowing us to participate in care of this patient Plan discussed with: Patient SURINDER RUANO MD Jan 29, 2025 17:41
[2025-01-29] MEDS: SEVELAMER 800 MG TAB PO SCH (17:58)
[2025-01-29] MEDS: HYDROcodone-ACET 5/325MG TAB PO PRN (20:03)
[2025-01-29] MEDS: EPOETIN ALFA-EPBX 10,000 UNIT/1ML VIAL SC ONE (21:25)
[2025-01-29] MEDS: ACETAMINOPHEN 325 MG TAB PO PRN (21:28)
[2025-01-29] MEDS: SODIUM CHLOR 0.9% PF (SALINE LOCK) 10ML VIAL/SYR IV SCH (21:30)
[2025-01-29] MEDS: ATORVASTATIN 20 MG TAB PO SCH (21:32)
[2025-01-30] VITALS (9 sets, daily range): BP systolic 112–139; BP diastolic 49–91; PULSE 79–100; RESP 14–20; TEMP 98.1–98.6; O2SAT 94–99
[2025-01-30] MEDS: hydrALAZINE HCL 20 MG/ML VL IV PRN (02:59)
[2025-01-30 07:42] LABS: Nucleated Red Blood Cells % 0.0 %
[2025-01-30 07:44] LABS: Hematocrit 22.1 % (41.0-53.0); Hemoglobin 7.6 g/dL (13.5-17.5); Mean Corpuscular Hemoglobin 30.7 pg (28.0-32.0); Mean Corpuscular Volume 89.3 fL (80.0-100.0)
[2025-01-30 07:54] LABS: Alanine Aminotransferase 10 U/L (7-40); Albumin 3.8 g/dL (3.2-4.8); Alkaline Phosphatase 96 U/L (46-116); Anion Gap 14 (5-15); BUN/Creatinine Ratio 5.6 (10.0-20.0); Chloride 99 mmol/L (98-107); Sodium 138 mmol/L (136-145); Total Protein 6.7 g/dL (5.7-8.2)
[2025-01-30 08:02] LABS: Bilirubin, Total < 0.2 mg/dL (0.2-1.0); Blood Urea Nitrogen 37 mg/dL (9-23); Calcium 9.3 mg/dL (8.7-10.4); Carbon Dioxide 25 mmol/L (20-31); Glucose 109 mg/dL (74-106); Potassium 5.3 mmol/L (3.5-5.1)
[2025-01-30] MEDS: B-COMPLEX W/ C & FOLIC ACID(NEPHROVITE TAB) PO SCH (09:23)
[2025-01-30] MEDS: APIXABAN 5 MG TAB PO SCH (09:23)
[2025-01-30] MEDS: FAMOTIDINE (10MG/ML) 2ML VL IV SCH (09:23)
[2025-01-30] MEDS: SODIUM CHL 0.9% 1000 ML BAG XX ONE (10:13)
--- NOTE | 2025-01-30 11:49 | DVHPN2 ---
Subjective Patient reports having severe right upper arm pain Reviewed: Care Plan, H&P, Labs, Medications Changes from previous H/P or p: No Changes General: Per HPI Eyes: No Pain, No Vision change, No Conjunctivae inflammation, No Eyelid inflammation, No Other, No Redness ENT: No Ear pain, No Ear discharge, No Nose pain, No Nose discharge, No Nose congestion, No Mouth pain, No Mouth swelling, No Throat pain, No Throat swelling, No Other Cardiovascular: No Chest Pain, No Palpitations, No Orthopnea, No Paroxysmal Noc. Dyspnea, No Edema, No Lt Headedness; Other (Pacemaker) Respiratory: No Cough, No Dry, No Shortness of breath, No SOB with excertion, No Wheezing, No Hemoptysis, No Pleuritic Pain, No Sputum, No Other Gastrointestinal: No Nausea, No Vomiting, No Abdominal Pain, No Diarrhea, No Constipation; Melena; No Hematochezia; Other (Blood streaked bowels) Genitourinary: No Dysuria, No Frequency, No Incontinence, No Hematuria, No Retention, No Other Musculoskeletal: No other, No neck pain, No shoulder pain, No arm pain, No back pain, No hand pain, No leg pain, No foot pain Skin: No Rash, No Lesions, No Jaundice, No Bruising, No Other Objective Vitals Vital Signs Date Time Temp Pulse Resp B/P (MAP) Pulse Ox O2 Delivery O2 Flow Rate FiO2 01/30/25 10:00 90 12 113/91 (98) 93 01/30/25 08:32 Nasal Cannula* 2 28 01/30/25 08:00 97.8 97.8 Intake/Output Intake and Output 01/30/25 07:00 Intake Total 650 ml Balance 650 ml Intake Oral 50 ml Blood Product 600 ml # Bowel Movements 2 General Appearance: Alert, Oriented X3, Cooperative, mild distress HEENT: Atraumatic Lungs: Clear to auscultation, Normal air movement Cardiovascular: Normal S1, Normal S2 Abdomen: Normal bowel sounds, Soft, No tenderness, No hepatospenomegaly Back: Flank Tenderness, Midline Tenderness Musculoskeletal: Normal sensory function, Normal motor function Neuro: Normal gait, Normal speech Skin: Dry, Intact Psych/Mental Status: Mental status NL, Mood NL Medications Current Medications Medications Dose Ordered Sig/Caroline Route Start Time Stop Time Status Last Admin Dose Admin Atorvastatin Calcium 10 mg HS PO 01/29/25 22:00 01/29/25 21:32 10 MG Hydralazine HCl 10 mg Q6HP PRN IV 01/29/25 15:15 01/30/25 02:59 10 MG Famotidine 20 mg Q2D IV 01/30/25 10:00 01/30/25 09:23 20 MG Multivit/Ca Carb/ B Cmplx/FA/Prenat 1 tab DAILY PO 01/30/25 10:00 01/30/25 09:23 1 TAB Sevelamer HCl 800 mg TIDWM PO 01/29/25 18:00 01/30/25 09:23 800 MG Apixaban 5 mg BID PO 01/30/25 10:00 01/30/25 09:23 5 MG Sodium Chloride 10 ml Q8HR IV 01/29/25 22:00 01/30/25 06:01 10 ML Ondansetron HCl 4 mg Q4HP PRN IV 01/29/25 15:15 Docusate Sodium 100 mg BIDPRN PRN PO 01/29/25 15:15 Acetaminophen 650 mg Q6HP PRN PO 01/29/25 15:15 01/29/25 21:28 650 MG Diagnostic Test (Pha) 1 strip ACHS 01/29/25 17:00 01/30/25 06:37 1 STRIP Insulin Human Regular ACHS SC 01/29/25 17:00 Dextrose 50 ml UD PRN IV 01/29/25 15:15 Nitroglycerin 0.4 mg Q5MINP PRN SL 01/29/25 16:45 Morphine Sulfate 2 mg Q30M PRN IV 01/29/25 16:45 Hydromorphone HCl 0.5 mg Q3HPRN PRN IV 01/30/25 11:30 UNV Oxycodone/ Acetaminophen 1 tab Q6HP PRN PO 01/30/25 11:30 UNV Laboratory Results Laboratory Tests 01/30/25 07:23 Chemistry Test 01/29/25 13:55 01/30/25 07:23 Albumin 4.0 g/dL (3.2-4.8) 3.8 g/dL (3.2-4.8) Calcium Level 9.4 mg/dL (8.7-10.4) 9.3 mg/dL (8.7-10.4) Magnesium Level 3.2 mg/dL (1.6-2.6) H Total Protein 7.0 g/dL (5.7-8.2) 6.7 g/dL (5.7-8.2) Coagulation Test 01/29/25 13:55 Prothrombin Time 17.4 sec (9.3-11.8) H Prothrombin Time INR 1.73 (0.9-1.15) H Activated Partial Thromboplast Time 39.9 SEC (24.5-34.5) H LFT Test 01/29/25 13:55 01/30/25 07:23 Alanine Aminotransferase (ALT) 11 U/L (7-40) 10 U/L (7-40) Alkaline Phosphatase 106 U/L (46-116) 96 U/L (46-116) Aspartate Amino Transferase (AST) 14 U/L (13-40) 21 U/L (13-40) Total Bilirubin < 0.2 mg/dL (0.2-1.0) L < 0.2 mg/dL (0.2-1.0) L Labs and/or images reviewed: Labs reviewed by me, Image(s) reviewed by me Assessment/Plan Assessment/Plan Impression: -GI bleed -coronary artery disease with previous stent placement and CABG -end-stage renal disease with hemodialysis -anemia of chronic disease -right upper extremity and internal jugular DVT -dyslipidemia -hypoglycemia Plan: -nephrology consultation -continue Eliquis, stop Brilinta given stents have been placed over four years ago -pain management: Add Percocet, Dilaudid -stool for occult blood -potassium lowering agent -repeat labs in a.m. Total time spent with patient discussing and formulating plan of care: 35 minutes. This medical document was created using an electronic medical record system with [employer] dictation system. Although this document has been carefully reviewed, there may still be some phonetic and typographical errors. These areas are purely typographical due to imperfections of the software programs, and do not reflect any compromise in the patient's medical care. Plan discussed with: Patient, Other (RN) My Orders Orders - NAVIN CLEMENS NP Procedure Category Date Status Time Hydromorphone PHA 01/30/25 Logged Injection (Dilaudid 11:30 Oxycodone W/ Acet PHA 01/30/25 Logged 5/325mg Tab (Percocet 11:30 Complete Blood Count LAB 01/31/25 Verified 04:00 Comprehensive LAB 01/31/25 Verified Metabolic Panel 04:00 Date of Service: Jan 30, 2025 Billing Provider: NAVIN CLEMENS NP Common Visit Codes: [id number] INP/OBS CARE(HIGH) NAVIN CLEMENS NP Jan 30, 2025 11:49
[2025-01-30] MEDS: HYDROmorphone HCL 2 MG/ML VL/or syr IV PRN (12:32)
--- NOTE | 2025-01-30 15:04 | DVHPN2 ---
Progress Note - Dictate Date Seen: Jan 30, 2025 Medical Necessity Reason Pt with a Central, PICC or Fol: Yes Subjective Had one episode of rectal bleed last night vital signs Vital Sign Date Time Temp Pulse Resp B/P (MAP) Pulse Ox O2 Delivery O2 Flow Rate FiO2 01/30/25 13:34 93 13 113/44 01/30/25 11:45 98.4 94 98.4 01/30/25 11:45 Room Air* 0 21 Total Intake and Output 01/29/25 01/29/25 01/30/25 15:00 23:00 07:00 Intake Total 650 ml Balance 650 ml medications Current Medications Medications Dose Ordered Sig/Caroline Route Start Time Stop Time Status Last Admin Dose Admin Atorvastatin Calcium 10 mg HS PO 01/29/25 22:00 01/29/25 21:32 10 MG Hydralazine HCl 10 mg Q6HP PRN IV 01/29/25 15:15 01/30/25 02:59 10 MG Famotidine 20 mg Q2D IV 01/30/25 10:00 01/30/25 09:23 20 MG Multivit/Ca Carb/ B Cmplx/FA/Prenat 1 tab DAILY PO 01/30/25 10:00 01/30/25 09:23 1 TAB Sevelamer HCl 800 mg TIDWM PO 01/29/25 18:00 01/30/25 12:24 800 MG Apixaban 5 mg BID PO 01/30/25 10:00 01/30/25 09:23 5 MG Sodium Chloride 10 ml Q8HR IV 01/29/25 22:00 01/30/25 14:42 10 ML Ondansetron HCl 4 mg Q4HP PRN IV 01/29/25 15:15 Docusate Sodium 100 mg BIDPRN PRN PO 01/29/25 15:15 Acetaminophen 650 mg Q6HP PRN PO 01/29/25 15:15 01/29/25 21:28 650 MG Diagnostic Test (Pha) 1 strip ACHS 01/29/25 17:00 01/30/25 12:20 1 STRIP Insulin Human Regular ACHS SC 01/29/25 17:00 Dextrose 50 ml UD PRN IV 01/29/25 15:15 Nitroglycerin 0.4 mg Q5MINP PRN SL 01/29/25 16:45 Morphine Sulfate 2 mg Q30M PRN IV 01/29/25 16:45 Hydromorphone HCl 0.5 mg Q3HPRN PRN IV 01/30/25 11:30 01/30/25 12:32 0.5 MG Oxycodone/ Acetaminophen 1 tab Q6HP PRN PO 01/30/25 11:30 objective HEENT: No evidence of JVD, no oral ulcers. Pulmonary: Lungs are clear on auscultation bilaterally Cardiovascular S1-S2, no S3 or S4 Abdomen: Bowel sounds positive, soft no rebound tenderness Skin: No rash Neurological: Alert, oriented, no focal weakness laboratory and microbiology Laboratory Tests 01/30/25 07:23 Test 01/30/25 07:23 Range/Units Serum Glucose 109 H 74-106 mg/dL Assessment/Plan Assessment: 1. End-stage renal disease on hemodialysis TTS 2. Severe hyperkalemia 3. Rectal bleed 4. Anemia of blood loss acute and end-stage renal disease Status post one PRBC 5. CHF 6. Hypertension Plan: HD TTS Ppi GI bleed management as per primary team/GI Monitor H&H transfuse as needed Schedule dialysis for TTS Hold off on antihypertensive meds for now Javed will be given for goal hemoglobin 10-11 Thank you very much for allowing us to participate in care of this patient Plan discussed with: Patient CC Plasma Assessment Blood Product Administration S: [id number] SURINDER RUANO MD Jan 30, 2025 15:04
[2025-01-30] MEDS: hydrALAZINE HCL 20 MG/ML VL IV ONE (20:00)
--- NOTE | 2025-01-30 20:19 | DVHINCON2 ---
Date of service: Jan 30, [address] Ellis Reason for Consultation Rectal bleeding History of Present Illness The patient is a 54-year-old male with multiple past medical history including Coronary artery disease, CHF, diabetes mellitus, end-stage renal disease on hemodialysis, and hypertension who presented to [facility] ED with complaint of gastrointestinal bleed. Patient reports that he was discharged from [facility] this morning to [place] [facility]. He informed staff member that he has blood in stool at this afternoon and EMS were called. Patient described blood as bright red, dark without hematemesis. Patient was seen at bedside in ER bed two. He has not had any further episodes of hematochezia. Patient was anemic on presentation with a hemoglobin of 6.9 Patient received 1 unit PRBC repeat hemoglobin is 7.6. Patient has not had prior colonoscopy Past Medical History Past Medical History Anxiety, Asthma, CAD, CHF, Depression, DM, ESRD, High Lipids, HTN, NV Past Surgical History Past Surgical History Pacemaker, PTCA Family History: Arthritis G8 MOTHER Diabetes mellitus G8 MOTHER G8 SISTER Hypertension G8 MOTHER G8 FATHER Allergies: Coded Allergies: No Known Drug Allergy (Verified Allergy, Unknown, 01/14/25) pt couldn't recall a name of an "antibiotic for pneumonia that caused him itching"' Home Meds Active Scripts Apixaban Base (ELIQUIS) 5 Mg Tab, 5 MG PO BID for 90 Days, #180 TAB Prov:BUSTER BORREGO RESIDENT 01/12/25 Ticagrelor Base (Brilinta) 60 Mg Tab, 60 MG PO BID for 30 Days, #60 TAB Prov:BLAIR SAGE RESIDENT 12/05/24 Nifedipine (Nifedipine Er) 90 Mg Tab, 1 TAB PO DAILY for 30 Days, #30 TAB 5 Refills Prov:BLAIR SAGE RESIDENT 12/05/24 Metoprolol Succinate (Metoprolol Succinate Er) 50 Mg Tab, 1 TAB PO DAILY for 30 Days, #30 TAB 5 Refills Prov:BLAIR SAGE RESIDENT 12/05/24 Insulin Lispro (Insulin Lispro) 100 Unit/Ml Inj, 100 UNIT IJ TID for 30 Days, #3 INJ 2-3 units subcutaneous t.i.d.. Always check your blood glucose before administering insulin, If blood sugar < 60 - have 15-20 g of glucose (8 oz cranberry juice, orange juice, apple juice, small carton of milk) go to the ER/call 911 Prov:BLAIR SAGE [facility] 12/05/24 Insulin Glargine (Lantus Solostar) 100 Unit/Ml Inj, 100 UNIT SC QPM for 30 Days, #3 INJ 15 units in the evening. Always check your blood glucose before administering insulin, If blood sugar < 60 - have 15-20 g of glucose (8 oz cranberry juice, orange juice, apple juice, small carton of milk) go to the ER/call 911 Prov:BLAIR SAGE [facility] 12/05/24 Folic Acid-Vitamin B6-Vitamin (B Complex/Folic Acid) Tab, 1 CAP OR DAILY for 30 Days, #30 TAB Prov:BLAIR SAGE [facility] 12/05/24 Atorvastatin Calcium (ATORVASTATIN CALCIUM) 40 Mg Tab, 1 TAB PO DAILY for 30 Days, #30 TAB 5 Refills Prov:BLAIR SAGE [facility] 12/05/24 Albuterol Sulfate (Albuterol Sulfate) 0.083 % Neb, 1 VIAL NEB Q4HPRN PRN for 30 Days, #50 VIAL Prov:BLAIR SAGE [facility] 12/05/24 Diphenhydramine-Zinc Acetate (Benadryl Cream) 1 Applic Ap, 1 APPLIC TOP Q6HPRN PRN for 30 Days, #120 APPLIC Prov:ALANA CANNON RESIDENT 07/30/23 Acetaminophen (Acetaminophen) 325 Mg Tab, 650 MG PO Q6HP PRN for 30 Days, #240 TAB Prov:ALANA CANNON RESIDENT 07/30/23 Reported Medications Lorazepam (Lorazepam) 1 Mg Tab, 1 TAB PO BIDPRN PRN for ANXIETY for 30 Days, #60 01/30/25 Trazodone Hcl (Trazodone Hcl) 100 Mg Tab, 1 TAB PO DAILY for 30 Days, #30 01/30/25 Sevelamer Carbonate (Sevelamer Carbonate) 800 Mg Tab, 4 TAB PO TID for 90 Days, #1080 01/30/25 Hydralazine Hcl (Hydralazine Hcl) 100 Mg Tab, 1 TAB PO TID for 30 Days, #90 01/30/25 Amlodipine Besylate (Amlodipine Besylate) 10 Mg Tab, 1 TAB PO DAILY for 30 Days, #30 01/30/25 Carvedilol (Carvedilol) 12.5 Mg Tab, 1 TAB PO BID for 30 Days, #60 01/30/25 Hydrocodone-Acetaminophen (Hydrocodone Bitartrate/AC 10-325 mg) 1 Tab Tab, 1 TAB PO QID, TAB 08/01/24 Patients Own Medication (PATIENTS OWN MEDICATION) ., 1 PATCH TD DAILY PTS OWN MED-OBTAIN FROM PT AND SEND TO RX DRUG: FREQ: RX# EXP: DATE DISP: TECH: [facility]: 10/16/23 Current Medications Current Medications Medications (Trade) Dose Ordered Sig/Caroline Route PRN Reason Start Time Stop Time Status Last Admin Atorvastatin Calcium (Lipitor) 10 mg HS PO 01/29/25 22:00 01/29/25 21:32 Famotidine (Pepcid Injection) 20 mg Q2D IV 01/30/25 10:00 01/30/25 09:23 Multivit/Ca Carb/ B Cmplx/FA/Prenat (Nephro-Evan Tablet) 1 tab DAILY PO 01/30/25 10:00 01/30/25 09:23 Apixaban (Eliquis) 5 mg BID PO 01/30/25 10:00 01/30/25 09:23 Sodium Chloride (Saline Lock Ns) 10 ml Q8HR IV 01/29/25 22:00 01/30/25 14:42 Hydromorphone HCl (Dilaudid Injection) 0.5 mg Q3HPRN PRN IV SEVERE PAIN (7-10 PAIN SCALE) 01/30/25 11:30 01/30/25 12:32 Oxycodone/ Acetaminophen (Percocet 5/ 325MG Tablet) 1 tab Q6HP PRN PO MODERATE PAIN (4-6 PAIN SCALE) 01/30/25 11:30 Vital Signs Vital Signs Date Time Temp Pulse Resp B/P (MAP) Pulse Ox O2 Delivery O2 Flow Rate FiO2 01/30/25 20:00 187/95 01/30/25 19:48 88 18 01/30/25 18:00 98 01/30/25 11:45 98.4 98.4 01/30/25 11:45 Room Air* 0 21 Physical Exam HEENT: No evidence of JVD, no oral ulcers. Pulmonary: Lungs are clear on auscultation bilaterally Cardiovascular S1-S2, no S3 or S4 Abdomen: Bowel sounds positive, soft no rebound tenderness Skin: No rash Neurological: Alert, oriented, no focal weakness Labs/Diagnostic Data Labs Test 01/30/25 17:42 01/30/25 07:23 01/29/25 13:55 Range/Units POC Glucose 87 70-106 mg/dl White Blood Count 4.5 4.4-10.8 10^3/uL Red Blood Count 2.48 L 4.5-5.90 10^6/uL Hemoglobin 7.6 L 13.5-17.5 g/dL Hematocrit 22.1 L 41.0-53.0 % Mean Corpuscular Volume 89.3 80.0-100.0 fL Mean Corpuscular Hemoglobin 30.7 28.0-32.0 pg Mean Corpuscular Hemoglobin Concent 34.4 32.0-36.0 g/dL Red Cell Distribution Width 16.0 H 11.8-14.3 % Platelet Count 212 140-450 10^3/uL Mean Platelet Volume 8.4 6.9-10.8 fL Neutrophils (%) (Auto) 73.5 37.0-80.0 % Lymphocytes (%) (Auto) 8.1 L 10.0-50.0 % Monocytes (%) (Auto) 10.2 0.0-12.0 % Eosinophils (%) (Auto) 5.8 0.0-7.0 % Basophils (%) (Auto) 2.4 H 0.0-2.0 % Neutrophils # (Auto) 3.3 1.6-8.6 10 ^3/uL Lymphocytes # (Auto) 0.4 0.4-5.4 10 ^3/uL Monocytes # (Auto) 0.5 0-1.3 10 ^3/uL Eosinophils # (Auto) 0.3 0-0.8 10 ^3/uL Basophils # (Auto) 0.1 0-0.2 10 ^3/uL Nucleated Red Blood Cells 0.0 % Sodium Level 138 # 136-145 mmol/L Potassium Level 5.3 #H 3.5-5.1 mmol/L Chloride Level 99 98-107 mmol/L Carbon Dioxide Level 25 20-31 mmol/L Anion Gap 14 5-15 Blood Urea Nitrogen 37 #H 9-23 mg/dL Creatinine 6.56 #H 0.700-1.30 mg/dL Glomerular Filtration Rate Calc 9 >90 mL/min BUN/Creatinine Ratio 5.6 L 10.0-20.0 Serum Glucose 109 H 74-106 mg/dL Calcium Level 9.3 8.7-10.4 mg/dL Total Bilirubin < 0.2 L 0.2-1.0 mg/dL Aspartate Amino Transferase (AST) 21 13-40 U/L Alanine Aminotransferase (ALT) 10 7-40 U/L Alkaline Phosphatase 96 46-116 U/L Total Protein 6.7 5.7-8.2 g/dL Albumin 3.8 3.2-4.8 g/dL Prothrombin Time 17.4 H 9.3-11.8 sec Prothrombin Time INR 1.73 H 0.9-1.15 Activated Partial Thromboplast Time 39.9 H 24.5-34.5 SEC Magnesium Level 3.2 H 1.6-2.6 mg/dL Iron Level 77 65-175 ug/dL Total Iron Binding Capacity 196 L 250-425 ug/dL Percent Iron Saturation 39.3 20-55 % Ferritin 604.5 H 22-322 ng/mL Ammonia < 10 L 11-32 umol/L LAST CT SCAN ABD PELVIS 01/14/25 IMPRESSION: Distended gallbladder with possible trace pericholecystic fluid and possible filling defect in the CBD which could be sludge. Consider MRCP for further evaluation. The cystic structure seen on prior US appears to be muscle on this CT exam. Problems(with codes): (1) Hematochezia (2) Generalized weakness (3) End-stage renal disease needing dialysis Plan/Recommendation Plan Continue to monitor labs Continue IV Protonix 40 mg p.o. daily Patient is on a renal diet Monitor for signs of any further bleeding Get a CT scan of the abdomen pelvis with oral contrast Patient does not want to do a bowel prep today as he is still in the ER, he is however agreeable do a colonoscopy at a later date Plan discussed with: Patient LEENA GRANT MD Jan 30, 2025 20:19
[2025-01-30] MEDS: OXYCODONE W/ ACETAMINOPHEN 5/325MG TABLET PO PRN (23:34)
[2025-01-30] MEDS: EPOETIN ALFA-EPBX 10,000 UNIT/1ML VIAL SC ONE (23:40)
[2025-01-31] VITALS (10 sets, daily range): BP systolic 115–186; BP diastolic 37–95; PULSE 81–97; RESP 15–20; TEMP 98–98.6; O2SAT 93–97
[2025-01-31 07:05] LABS: Hematocrit 19.3 % (41.0-53.0); Mean Corpuscular Hemoglobin 31.1 pg (28.0-32.0); Mean Corpuscular Volume 89.5 fL (80.0-100.0); Nucleated Red Blood Cells % 0.1 %
[2025-01-31 07:13] LABS: Hemoglobin 6.7 g/dL (13.5-17.5)
[2025-01-31 07:18] LABS: Albumin 3.5 g/dL (3.2-4.8); Alkaline Phosphatase 82 U/L (46-116); Anion Gap 13 (5-15); BUN/Creatinine Ratio 6.9 (10.0-20.0); Calcium 9.5 mg/dL (8.7-10.4); Carbon Dioxide 28 mmol/L (20-31); Sodium 137 mmol/L (136-145); Total Protein 6.2 g/dL (5.7-8.2)
[2025-01-31 07:52] LABS: Alanine Aminotransferase 9 U/L (7-40); Bilirubin, Total < 0.2 mg/dL (0.2-1.0); Blood Urea Nitrogen 56 mg/dL (9-23); Chloride 96 mmol/L (98-107); Glucose 107 mg/dL (74-106)
[2025-01-31 07:54] LABS: Potassium 5.7 mmol/L (3.5-5.1)
[2025-01-31 09:07] LABS: Hematocrit 20.0 % (41.0-53.0)
[2025-01-31 09:08] LABS: Hemoglobin 6.8 g/dL (13.5-17.5)
--- NOTE | 2025-01-31 11:16 | DVHPN2 ---
Subjective Patient denies any symptoms at this time. Requesting to have diet restarted. Reviewed: Care Plan, H&P, Labs, Medications Changes from previous H/P or p: Changes General: Per HPI Eyes: No Pain, No Vision change, No Conjunctivae inflammation, No Eyelid inflammation, No Other, No Redness ENT: No Ear pain, No Ear discharge, No Nose pain, No Nose discharge, No Nose congestion, No Mouth pain, No Mouth swelling, No Throat pain, No Throat swelling, No Other Cardiovascular: No Chest Pain, No Palpitations, No Orthopnea, No Paroxysmal Noc. Dyspnea, No Edema, No Lt Headedness; Other (Pacemaker) Respiratory: No Cough, No Dry, No Shortness of breath, No SOB with excertion, No Wheezing, No Hemoptysis, No Pleuritic Pain, No Sputum, No Other Gastrointestinal: No Nausea, No Vomiting, No Abdominal Pain, No Diarrhea, No Constipation; Melena; No Hematochezia; Other (Blood streaked bowels) Genitourinary: No Dysuria, No Frequency, No Incontinence, No Hematuria, No Retention, No Other Musculoskeletal: No other, No neck pain, No shoulder pain, No arm pain, No back pain, No hand pain, No leg pain, No foot pain Skin: No Rash, No Lesions, No Jaundice, No Bruising, No Other Objective Vitals Vital Signs Date Time Temp Pulse Resp B/P (MAP) Pulse Ox O2 Delivery O2 Flow Rate FiO2 01/31/25 10:55 98.3 93 19 165/37 98.3 01/31/25 08:05 Room Air* 0 21 01/31/25 05:00 93 Intake/Output Intake and Output 01/31/25 07:00 Intake Total 0 ml Output Total 0 ml Balance 0 ml Intake Oral 0 ml Output Urine Total 0 ml General Appearance: Alert, Oriented X3, Cooperative, mild distress HEENT: Atraumatic, PERRLA Lungs: Clear to auscultation, Normal air movement Cardiovascular: Normal S1, Normal S2 Abdomen: Normal bowel sounds, Soft, No tenderness, No hepatospenomegaly Back: Flank Tenderness, Midline Tenderness Musculoskeletal: Normal sensory function, Normal motor function Neuro: Normal gait, Normal speech Skin: Dry, Intact Psych/Mental Status: Mental status NL, Mood NL Medications Current Medications Medications Dose Ordered Sig/Caroline Route Start Time Stop Time Status Last Admin Dose Admin Atorvastatin Calcium 10 mg HS PO 01/29/25 22:00 01/30/25 23:33 10 MG Hydralazine HCl 10 mg Q6HP PRN IV 01/29/25 15:15 01/31/25 04:42 10 MG Multivit/Ca Carb/ B Cmplx/FA/Prenat 1 tab DAILY PO 01/30/25 10:00 01/30/25 09:23 1 TAB Sevelamer HCl 800 mg TIDWM PO 01/29/25 18:00 01/30/25 18:00 800 MG Sodium Chloride 10 ml Q8HR IV 01/29/25 22:00 01/31/25 07:02 10 ML Ondansetron HCl 4 mg Q4HP PRN IV 01/29/25 15:15 Docusate Sodium 100 mg BIDPRN PRN PO 01/29/25 15:15 Acetaminophen 650 mg Q6HP PRN PO 01/29/25 15:15 01/29/25 21:28 650 MG Diagnostic Test (Pha) 1 strip ACHS 01/29/25 17:00 01/31/25 06:41 1 STRIP Insulin Human Regular ACHS SC 01/29/25 17:00 Dextrose 50 ml UD PRN IV 01/29/25 15:15 Nitroglycerin 0.4 mg Q5MINP PRN SL 01/29/25 16:45 Morphine Sulfate 2 mg Q30M PRN IV 01/29/25 16:45 Hydromorphone HCl 0.5 mg Q3HPRN PRN IV 01/30/25 11:30 01/31/25 03:01 0.5 MG Oxycodone/ Acetaminophen 1 tab Q6HP PRN PO 01/30/25 11:30 01/30/25 23:34 1 TAB Pantoprazole Sodium 40 mg BID IV 01/31/25 10:00 Laboratory Results Laboratory Tests 01/31/25 05:38 01/31/25 08:29 Chemistry Test 01/31/25 05:38 Albumin 3.5 g/dL (3.2-4.8) Calcium Level 9.5 mg/dL (8.7-10.4) Total Protein 6.2 g/dL (5.7-8.2) LFT Test 01/31/25 05:38 Alanine Aminotransferase (ALT) 9 U/L (7-40) Alkaline Phosphatase 82 U/L (46-116) Aspartate Amino Transferase (AST) 21 U/L (13-40) Total Bilirubin < 0.2 mg/dL (0.2-1.0) L Labs and/or images reviewed: Labs reviewed by me, Image(s) reviewed by me Assessment/Plan Assessment/Plan Impression: -GI bleed -coronary artery disease with previous stent placement and CABG -end-stage renal disease with hemodialysis -anemia of chronic disease -right upper extremity and internal jugular DVT -dyslipidemia -hypoglycemia Plan: Events: No signs of GI bleed, no BM as of yet. Patient anemic today. 1 unit PRBC with hemodialysis -nephrology consultation: Patient receiving hemodialysis today -GI consultation: Possible colonoscopy today. -decrease Eliquis 2.5 mg p.o. b.i.d. -pain management: Add Percocet, Dilaudid -stool for occult blood : Pending -repeat labs in a.m. Total time spent with patient discussing and formulating plan of care: 35 minutes. This medical document was created using an electronic medical record system with [employer] dictation system. Although this document has been carefully reviewed, there may still be some phonetic and typographical errors. These areas are purely typographical due to imperfections of the software programs, and do not reflect any compromise in the patient's medical care. Plan discussed with: Patient, Other (RN) My Orders Orders - NAVIN CLEMENS NP Procedure Category Date Status Time Hydromorphone PHA 01/30/25 In Process Injection (Dilaudid 11:30 Oxycodone W/ Acet PHA 01/30/25 In Process 5/325mg Tab (Percocet 11:30 Mrsa Screen RODNEY 01/31/25 Logged 08:11 Pantoprazole PHA 01/31/25 In Process (Protonix) 10:00 Stool Occult Blood LAB 01/31/25 Uncollected 08:48 Date of Service: Jan 31, 2025 Billing Provider: NAVIN CLEMENS NP Common Visit Codes: [id number] INP/OBS CARE(HIGH) NAVIN CLEMENS NP Jan 31, 2025 11:16
[2025-01-31] MEDS: PANTOPRAZOLE 40 MG/10 ML VIAL INJ IV SCH (11:35)
--- NOTE | 2025-01-31 14:08 | DVHPN2 ---
Progress Note - Dictate Date Seen: Jan 31, 2025 Medical Necessity Reason Pt with a Central, PICC or Fol: Yes Subjective Patient had dialysis today uneventful. vital signs Vital Sign Date Time Temp Pulse Resp B/P (MAP) Pulse Ox O2 Delivery O2 Flow Rate FiO2 01/31/25 13:10 91 17 150/87 01/31/25 12:32 98.5 96 98.5 01/31/25 08:05 Room Air* 0 21 Total Intake and Output 01/30/25 01/30/25 01/31/25 15:00 23:00 07:00 Intake Total 0 ml Output Total 0 ml Balance 0 ml medications Current Medications Medications Dose Ordered Sig/Caroline Route Start Time Stop Time Status Last Admin Dose Admin Atorvastatin Calcium 10 mg HS PO 01/29/25 22:00 01/30/25 23:33 10 MG Hydralazine HCl 10 mg Q6HP PRN IV 01/29/25 15:15 01/31/25 04:42 10 MG Multivit/Ca Carb/ B Cmplx/FA/Prenat 1 tab DAILY PO 01/30/25 10:00 01/31/25 11:35 1 TAB Sevelamer HCl 800 mg TIDWM PO 01/29/25 18:00 01/31/25 11:34 800 MG Sodium Chloride 10 ml Q8HR IV 01/29/25 22:00 01/31/25 07:02 10 ML Ondansetron HCl 4 mg Q4HP PRN IV 01/29/25 15:15 Docusate Sodium 100 mg BIDPRN PRN PO 01/29/25 15:15 Acetaminophen 650 mg Q6HP PRN PO 01/29/25 15:15 01/29/25 21:28 650 MG Diagnostic Test (Pha) 1 strip ACHS 01/29/25 17:00 01/31/25 11:18 1 STRIP Insulin Human Regular ACHS SC 01/29/25 17:00 Dextrose 50 ml UD PRN IV 01/29/25 15:15 Nitroglycerin 0.4 mg Q5MINP PRN SL 01/29/25 16:45 Morphine Sulfate 2 mg Q30M PRN IV 01/29/25 16:45 Hydromorphone HCl 0.5 mg Q3HPRN PRN IV 01/30/25 11:30 01/31/25 12:40 0.5 MG Oxycodone/ Acetaminophen 1 tab Q6HP PRN PO 01/30/25 11:30 01/30/25 23:34 1 TAB Pantoprazole Sodium 40 mg BID IV 01/31/25 10:00 01/31/25 11:35 40 MG objective HEENT: No evidence of JVD, no oral ulcers. Pulmonary: Lungs are clear on auscultation bilaterally Cardiovascular S1-S2, no S3 or S4 Abdomen: Bowel sounds positive, soft no rebound tenderness Skin: No rash Neurological: Alert, oriented, no focal weakness laboratory and microbiology Laboratory Tests 01/31/25 08:29 01/31/25 05:38 Test 01/31/25 05:38 Range/Units Serum Glucose 107 H 74-106 mg/dL Assessment/Plan Assessment: 1. End-stage renal disease on hemodialysis TTS 2. Severe hyperkalemia managed with dialysis 3. GI bleed 4. Anemia of blood loss acute and end-stage renal disease Status post one PRBC 5. CHF 6. Hypertension Plan: HD TTS Ppi GI bleed management as per primary team/GI Monitor H&H transfuse as needed Schedule dialysis for TTS Hold off on antihypertensive meds for now Javed will be given for goal hemoglobin 10-11 Thank you very much for allowing us to participate in care of this patient Plan discussed with: Patient CC Plasma Assessment Blood Product Administration S: [id number] SURINDER RUANO MD Jan 31, 2025 14:07
[2025-01-31 15:21] LABS: Hematocrit 25.7 % (41.0-53.0); Hemoglobin 8.7 g/dL (13.5-17.5)
--- NOTE | 2025-01-31 21:52 | DVHPN2 ---
Progress Note - Dictate Date Seen: Jan 31, 2025 Medical Necessity Reason Pt with a Central, PICC or Fol: Yes Subjective Patient seen at bedside Patient had hemodialysis today Rectal bleeding is resolving Hemoglobin 8.7 after 2 units PRBC vital signs Vital Sign Date Time Temp Pulse Resp B/P (MAP) Pulse Ox O2 Delivery O2 Flow Rate FiO2 01/31/25 17:45 93 18 150/69 01/31/25 16:35 98.6 95 98.6 01/31/25 08:05 Room Air* 0 21 Total Intake and Output 01/30/25 01/30/25 01/31/25 15:00 23:00 07:00 Intake Total 0 ml Output Total 0 ml Balance 0 ml medications Current Medications Medications Dose Ordered Sig/Caroline Route Start Time Stop Time Status Last Admin Dose Admin Atorvastatin Calcium 10 mg HS PO 01/29/25 22:00 01/30/25 23:33 10 MG Hydralazine HCl 10 mg Q6HP PRN IV 01/29/25 15:15 01/31/25 04:42 10 MG Multivit/Ca Carb/ B Cmplx/FA/Prenat 1 tab DAILY PO 01/30/25 10:00 01/31/25 11:35 1 TAB Sevelamer HCl 800 mg TIDWM PO 01/29/25 18:00 01/31/25 18:00 800 MG Sodium Chloride 10 ml Q8HR IV 01/29/25 22:00 01/31/25 14:13 10 ML Ondansetron HCl 4 mg Q4HP PRN IV 01/29/25 15:15 Docusate Sodium 100 mg BIDPRN PRN PO 01/29/25 15:15 Acetaminophen 650 mg Q6HP PRN PO 01/29/25 15:15 01/29/25 21:28 650 MG Diagnostic Test (Pha) 1 strip ACHS 01/29/25 17:00 01/31/25 16:41 1 STRIP Insulin Human Regular ACHS SC 01/29/25 17:00 Dextrose 50 ml UD PRN IV 01/29/25 15:15 Nitroglycerin 0.4 mg Q5MINP PRN SL 01/29/25 16:45 Morphine Sulfate 2 mg Q30M PRN IV 01/29/25 16:45 Hydromorphone HCl 0.5 mg Q3HPRN PRN IV 01/30/25 11:30 01/31/25 17:15 0.5 MG Oxycodone/ Acetaminophen 1 tab Q6HP PRN PO 01/30/25 11:30 01/31/25 15:24 1 TAB Pantoprazole Sodium 40 mg BID IV 01/31/25 10:00 01/31/25 11:35 40 MG objective HEENT: No evidence of JVD, no oral ulcers. Pulmonary: Lungs are clear on auscultation bilaterally Cardiovascular S1-S2, no S3 or S4 Abdomen: Bowel sounds positive, soft no rebound tenderness Skin: No rash Neurological: Alert, oriented, no focal weakness laboratory and microbiology Laboratory Tests 01/31/25 14:59 01/31/25 05:38 Test 01/31/25 05:38 Range/Units Serum Glucose 107 H 74-106 mg/dL Problems(with codes): (1) Hematochezia (2) Electrolyte imbalance (3) Generalized weakness (4) End-stage renal disease needing dialysis (5) ESRD needing dialysis (6) Anemia of chronic disease (7) Severe anemia Prognosis Plan Patient was tentatively scheduled for an endoscopy today but that was canceled as the patient ate lunch Prior to that he had hemodialysis session Patient would like to get his endoscopic workup done while he is in the hospital as he lives in a home and it will be hard for him to come as an outpatient Change to clear liquid diet tomorrow and start bowel prep on 02/01/2025 I had tentatively plan a colonoscopy for him on 02/02/2025 Continue to monitor labs Transfused 1 unit PRBC if hemoglobin drops below seven Plan discussed with: Patient CC Plasma Assessment Blood Product Administration S: [id number] LEENA GRANT MD Jan 31, 2025 21:52
[2025-01-31] MEDS: DOCUSATE SOD 100 MG CAP PO PRN (22:20)
[2025-02-01] VITALS (8 sets, daily range): BP systolic 97–162; BP diastolic 50–86; PULSE 62–91; RESP 16–20; TEMP 97.4–98.3; O2SAT 93–97
[2025-02-01] MEDS: SODIUM CHL 0.9% 1000 ML BAG XX ONE (07:30)
[2025-02-01] MEDS: diphenhdrAMINE HCL 50 MG/1 ML VL IV ONE (08:01)
--- NOTE | 2025-02-01 08:59 | DVHPN2 ---
Subjective Patient denies any symptoms at this time Reviewed: Care Plan, H&P, Labs, Medications Changes from previous H/P or p: No Changes General: Per HPI Eyes: No Pain, No Vision change, No Conjunctivae inflammation, No Eyelid inflammation, No Other, No Redness ENT: No Ear pain, No Ear discharge, No Nose pain, No Nose discharge, No Nose congestion, No Mouth pain, No Mouth swelling, No Throat pain, No Throat swelling, No Other Cardiovascular: No Chest Pain, No Palpitations, No Orthopnea, No Paroxysmal Noc. Dyspnea, No Edema, No Lt Headedness; Other (Pacemaker) Respiratory: No Cough, No Dry, No Shortness of breath, No SOB with excertion, No Wheezing, No Hemoptysis, No Pleuritic Pain, No Sputum, No Other Gastrointestinal: No Nausea, No Vomiting, No Abdominal Pain, No Diarrhea, No Constipation; Melena; No Hematochezia; Other (Blood streaked bowels) Genitourinary: No Dysuria, No Frequency, No Incontinence, No Hematuria, No Retention, No Other Musculoskeletal: No other, No neck pain, No shoulder pain, No arm pain, No back pain, No hand pain, No leg pain, No foot pain Skin: No Rash, No Lesions, No Jaundice, No Bruising, No Other Objective Vitals Vital Signs Date Time Temp Pulse Resp B/P (MAP) Pulse Ox O2 Delivery O2 Flow Rate FiO2 02/01/25 08:35 98.1 62 17 161/56 (91) 96 98.1 01/31/25 20:00 Room Air* 0 21 Intake/Output Intake and Output 02/01/25 07:00 Intake Total 1060 ml Output Total 0 ml Balance 1060 ml Intake Oral 760 ml Blood Product 300 ml Output Urine Total 0 ml General Appearance: Alert, Oriented X3, Cooperative, mild distress HEENT: Atraumatic, PERRLA Lungs: Clear to auscultation, Normal air movement Cardiovascular: Normal S1, Normal S2 Abdomen: Normal bowel sounds, Soft, No tenderness, No hepatospenomegaly Genitourinary: No Apparent Abnormalities Back: Flank Tenderness, Midline Tenderness Musculoskeletal: Normal sensory function, Normal motor function Neuro: Normal gait, Normal speech Skin: Dry, Intact Psych/Mental Status: Mental status NL, Mood NL Medications Current Medications Medications Dose Ordered Sig/Caroline Route Start Time Stop Time Status Last Admin Dose Admin Atorvastatin Calcium 10 mg HS PO 01/29/25 22:00 01/31/25 22:20 10 MG Hydralazine HCl 10 mg Q6HP PRN IV 01/29/25 15:15 01/31/25 04:42 10 MG Multivit/Ca Carb/ B Cmplx/FA/Prenat 1 tab DAILY PO 01/30/25 10:00 01/31/25 11:35 1 TAB Sevelamer HCl 800 mg TIDWM PO 01/29/25 18:00 01/31/25 18:00 800 MG Sodium Chloride 10 ml Q8HR IV 01/29/25 22:00 02/01/25 06:35 10 ML Ondansetron HCl 4 mg Q4HP PRN IV 01/29/25 15:15 Docusate Sodium 100 mg BIDPRN PRN PO 01/29/25 15:15 01/31/25 22:20 100 MG Acetaminophen 650 mg Q6HP PRN PO 01/29/25 15:15 02/01/25 08:02 650 MG Diagnostic Test (Pha) 1 strip ACHS 01/29/25 17:00 02/01/25 06:36 1 STRIP Insulin Human Regular ACHS SC 01/29/25 17:00 Dextrose 50 ml UD PRN IV 01/29/25 15:15 Nitroglycerin 0.4 mg Q5MINP PRN SL 01/29/25 16:45 Oxycodone/ Acetaminophen 1 tab Q6HP PRN PO 01/30/25 11:30 02/01/25 00:36 1 TAB Pantoprazole Sodium 40 mg BID IV 01/31/25 10:00 01/31/25 22:20 40 MG Hydromorphone HCl 0.5 mg Q6HPRN PRN IV 02/01/25 09:00 UNV Metoprolol Succinate 25 mg DAILY PO 02/01/25 10:00 UNV Laboratory Results Laboratory Tests 01/31/25 05:38 01/31/25 14:59 Labs and/or images reviewed: Image(s) reviewed by me Assessment/Plan Assessment/Plan Impression: -GI bleed -coronary artery disease with previous stent placement and CABG -end-stage renal disease with hemodialysis -anemia of chronic disease -right upper extremity and internal jugular DVT -dyslipidemia -hypoglycemia -accelerated hypertension Plan: Events: Still awaiting stool for occult blood. Receiving HD today. Plans for colonoscopy tomorrow with bowel prep and clear liquid diet today. -nephrology consultation: Patient receiving hemodialysis today -GI consultation: Recommendations reviewed -hold anticoagulation -pain management: Add Percocet, Dilaudid -stool for occult blood : Pending -restart Toprol-XL -repeat labs in a.m. Total time spent with patient discussing and formulating plan of care: 35 minutes. This medical document was created using an electronic medical record system with [employer] dictation system. Although this document has been carefully reviewed, there may still be some phonetic and typographical errors. These areas are purely typographical due to imperfections of the software programs, and do not reflect any compromise in the patient's medical care. Plan discussed with: Patient, Other (RN) My Orders Orders - NAVIN CLEMENS NP Procedure Category Date Status Time Communication Order ORDERS 01/31/25 Transmitted 11:08 Mrsa Screen RODNEY 01/31/25 In Process 11:13 Hydromorphone PHA 02/01/25 Logged Injection (Dilaudid 09:00 Clear Liq Diet DIET 02/01/25 Transmitted Breakfast Metoprolol Xl PHA 02/01/25 Logged Succinate (Toprol Xl) 10:00 Basic Metabolic Panel LAB 02/02/25 Verified 04:00 Complete Blood Count LAB 02/02/25 Verified 04:00 Date of Service: Feb 01, 2025 Billing Provider: NVAIN CLEMENS NP Common Visit Codes: [id number] INP/OBS CARE(HIGH) NAVIN CLEMENS NP Feb 01, 2025 08:59
[2025-02-01] MEDS: METOPROLOL SUCCINATE XL 50 MG TAB PO SCH (10:58)
[2025-02-01] MEDS: HYDROmorphone HCL 2 MG/ML VL/or syr IV PRN (10:59)
[2025-02-01] MEDS: GOLYTELY 4L KIT PO ONE (13:00)
--- NOTE | 2025-02-01 15:03 | DVHPN2 ---
Progress Note - Dictate Date Seen: Feb 01, 2025 Medical Necessity Reason Pt with a Central, PICC or Fol: Yes Subjective Patient rectal bleed since to be improving vital signs Vital Sign Date Time Temp Pulse Resp B/P (MAP) Pulse Ox O2 Delivery O2 Flow Rate FiO2 02/01/25 12:57 97.4 85 16 156/56 (89) 93 97.4 02/01/25 08:00 Room Air* 0 21 Total Intake and Output 01/31/25 01/31/25 02/01/25 15:00 23:00 07:00 Intake Total 300 ml 400 ml 360 ml Output Total 0 ml Balance 300 ml 400 ml 360 ml medications Current Medications Medications Dose Ordered Sig/Caroline Route Start Time Stop Time Status Last Admin Dose Admin Atorvastatin Calcium 10 mg HS PO 01/29/25 22:00 01/31/25 22:20 10 MG Hydralazine HCl 10 mg Q6HP PRN IV 01/29/25 15:15 01/31/25 04:42 10 MG Multivit/Ca Carb/ B Cmplx/FA/Prenat 1 tab DAILY PO 01/30/25 10:00 02/01/25 10:57 1 TAB Sevelamer HCl 800 mg TIDWM PO 01/29/25 18:00 02/01/25 11:42 800 MG Sodium Chloride 10 ml Q8HR IV 01/29/25 22:00 02/01/25 13:51 10 ML Ondansetron HCl 4 mg Q4HP PRN IV 01/29/25 15:15 Docusate Sodium 100 mg BIDPRN PRN PO 01/29/25 15:15 02/01/25 14:21 100 MG Acetaminophen 650 mg Q6HP PRN PO 01/29/25 15:15 02/01/25 08:02 650 MG Diagnostic Test (Pha) 1 strip ACHS 01/29/25 17:00 02/01/25 11:33 1 STRIP Insulin Human Regular ACHS SC 01/29/25 17:00 Dextrose 50 ml UD PRN IV 01/29/25 15:15 Nitroglycerin 0.4 mg Q5MINP PRN SL 01/29/25 16:45 Oxycodone/ Acetaminophen 1 tab Q6HP PRN PO 01/30/25 11:30 02/01/25 14:05 1 TAB Pantoprazole Sodium 40 mg BID IV 01/31/25 10:00 02/01/25 10:57 40 MG Hydromorphone HCl 0.5 mg Q6HPRN PRN IV 02/01/25 09:00 02/01/25 10:59 0.5 MG Metoprolol Succinate 25 mg DAILY PO 02/01/25 10:00 02/01/25 10:58 25 MG Artificial Tears 1 drop Q6HP PRN EACHEYE 02/01/25 12:45 objective HEENT: No evidence of JVD, no oral ulcers. Pulmonary: Lungs are clear on auscultation bilaterally Cardiovascular S1-S2, no S3 or S4 Abdomen: Bowel sounds positive, soft no rebound tenderness Skin: No rash Neurological: Alert, oriented, no focal weakness laboratory and microbiology Laboratory Tests 01/31/25 14:59 01/31/25 05:38 Test 01/31/25 05:38 Range/Units Serum Glucose 107 H 74-106 mg/dL Assessment/Plan Assessment: 1. End-stage renal disease on hemodialysis TTS 2. Severe hyperkalemia managed with dialysis 3. GI bleed 4. Anemia of blood loss acute and end-stage renal disease Status post one PRBC 5. CHF 6. Hypertension Plan: Hemodialysis today was completed uneventfully Ppi GI consult appreciated, pending endoscopy Monitor H&H transfuse as needed Schedule dialysis for TTS Hold off on antihypertensive meds for now Javed will be given for goal hemoglobin 10-11 Thank you very much for allowing us to participate in care of this patient Plan discussed with: Patient CC Plasma Assessment Blood Product Administration S: [id number] SURINDER RUANO MD Feb 01, 2025 15:03
[2025-02-01] MEDS: ARTIFICIAL TEARS 15ml EACHEYE PRN (16:18)
[2025-02-01] MEDS: EPOETIN ALFA-EPBX 10,000 UNIT/1ML VIAL SC ONE (21:47)
[2025-02-02] VITALS (10 sets, daily range): BP systolic 149–170; BP diastolic 50–81; PULSE 73–85; RESP 16–18; TEMP 97–98.2; O2SAT 91–100
[2025-02-02] MEDS: MAGNESIUM CITRATE SOLUTION 300 ML BTL PO ONE (05:43)
[2025-02-02 06:58] LABS: Hematocrit 25.0 % (41.0-53.0); Hemoglobin 8.5 g/dL (13.5-17.5); Mean Corpuscular Hemoglobin 30.0 pg (28.0-32.0); Mean Corpuscular Volume 88.6 fL (80.0-100.0); Nucleated Red Blood Cells % 0.1 %
[2025-02-02 07:00] LABS: Anion Gap 9 (5-15); Potassium 4.7 mmol/L (3.5-5.1); Sodium 137 mmol/L (136-145)
[2025-02-02 07:01] LABS: Calcium 10.1 mg/dL (8.7-10.4)
[2025-02-02 07:03] LABS: Carbon Dioxide 33 mmol/L (20-31); Chloride 95 mmol/L (98-107)
[2025-02-02 07:06] LABS: BUN/Creatinine Ratio 4.3 (10.0-20.0); Blood Urea Nitrogen 21 mg/dL (9-23); Glucose 74 mg/dL (74-106)
[2025-02-02] MEDS: ONDANSETRON HCL 4 MG/2 ML VIAL IV PRN (11:55)
--- NOTE | 2025-02-02 13:19 | DVHPN2 ---
Subjective Patient complaining of itchiness to left eye. Reports decreased bleeding with BMs Reviewed: Care Plan, H&P, Labs, Medications Changes from previous H/P or p: No Changes General: Per HPI Eyes: No Pain, No Vision change, No Conjunctivae inflammation, No Eyelid inflammation, No Other, No Redness ENT: No Ear pain, No Ear discharge, No Nose pain, No Nose discharge, No Nose congestion, No Mouth pain, No Mouth swelling, No Throat pain, No Throat swelling, No Other Cardiovascular: No Chest Pain, No Palpitations, No Orthopnea, No Paroxysmal Noc. Dyspnea, No Edema, No Lt Headedness; Other (Pacemaker) Respiratory: No Cough, No Dry, No Shortness of breath, No SOB with excertion, No Wheezing, No Hemoptysis, No Pleuritic Pain, No Sputum, No Other Gastrointestinal: No Nausea, No Vomiting, No Abdominal Pain, No Diarrhea, No Constipation; Melena; No Hematochezia; Other (Blood streaked bowels) Genitourinary: No Dysuria, No Frequency, No Incontinence, No Hematuria, No Retention, No Other Musculoskeletal: No other, No neck pain, No shoulder pain, No arm pain, No back pain, No hand pain, No leg pain, No foot pain Skin: No Rash, No Lesions, No Jaundice, No Bruising, No Other Objective Vitals Vital Signs Date Time Temp Pulse Resp B/P (MAP) Pulse Ox O2 Delivery O2 Flow Rate FiO2 02/02/25 08:48 73 152/77 02/02/25 08:46 16 02/02/25 08:33 97.6 96 97.6 02/02/25 08:00 Room Air* 0 21 Intake/Output Intake and Output 02/02/25 07:00 Intake Total 600 ml Balance 600 ml Intake Oral 600 ml General Appearance: Alert, Oriented X3, Cooperative, mild distress HEENT: Atraumatic, PERRLA Lungs: Clear to auscultation, Normal air movement Cardiovascular: Normal S1, Normal S2 Abdomen: Normal bowel sounds, Soft, No tenderness, No hepatospenomegaly Genitourinary: No Apparent Abnormalities Back: Flank Tenderness, Midline Tenderness Musculoskeletal: Normal sensory function, Normal motor function Neuro: Normal gait, Normal speech Skin: Dry, Intact Psych/Mental Status: Mental status NL, Mood NL Medications Current Medications Medications Dose Ordered Sig/Caroline Route Start Time Stop Time Status Last Admin Dose Admin Atorvastatin Calcium 10 mg HS PO 01/29/25 22:00 02/01/25 21:47 10 MG Hydralazine HCl 10 mg Q6HP PRN IV 01/29/25 15:15 02/02/25 06:54 10 MG Multivit/Ca Carb/ B Cmplx/FA/Prenat 1 tab DAILY PO 01/30/25 10:00 02/02/25 08:48 1 TAB Sevelamer HCl 800 mg TIDWM PO 01/29/25 18:00 02/02/25 08:48 800 MG Sodium Chloride 10 ml Q8HR IV 01/29/25 22:00 02/02/25 06:00 10 ML Ondansetron HCl 4 mg Q4HP PRN IV 01/29/25 15:15 02/02/25 11:55 4 MG Docusate Sodium 100 mg BIDPRN PRN PO 01/29/25 15:15 02/01/25 21:55 100 MG Acetaminophen 650 mg Q6HP PRN PO 01/29/25 15:15 02/02/25 05:41 650 MG Diagnostic Test (Pha) 1 strip ACHS 01/29/25 17:00 02/02/25 11:45 1 STRIP Insulin Human Regular ACHS SC 01/29/25 17:00 Dextrose 50 ml UD PRN IV 01/29/25 15:15 Nitroglycerin 0.4 mg Q5MINP PRN SL 01/29/25 16:45 Oxycodone/ Acetaminophen 1 tab Q6HP PRN PO 01/30/25 11:30 02/02/25 11:55 1 TAB Pantoprazole Sodium 40 mg BID IV 01/31/25 10:00 02/02/25 08:44 40 MG Hydromorphone HCl 0.5 mg Q6HPRN PRN IV 02/01/25 09:00 02/02/25 08:46 0.5 MG Metoprolol Succinate 25 mg DAILY PO 02/01/25 10:00 02/02/25 08:48 25 MG Artificial Tears 1 drop Q6HP PRN EACHEYE 02/01/25 12:45 02/02/25 03:36 1 DROP Laboratory Results Laboratory Tests 02/02/25 05:56 Chemistry Test 02/02/25 05:56 Calcium Level 10.1 mg/dL (8.7-10.4) Microbiology Microbiology Date/Time Source Procedure Growth Status 01/31/25 06:15 Nose MRSA Screen - Final Complete Labs and/or images reviewed: Labs reviewed by me, Image(s) reviewed by me Assessment/Plan Assessment/Plan Impression: -GI bleed -coronary artery disease with previous stent placement and CABG -end-stage renal disease with hemodialysis -anemia of chronic disease -right upper extremity and internal jugular DVT -dyslipidemia -hypoglycemia -accelerated hypertension Plan: Events: Plans for colonoscopy today. -start diet post procedure. -polymyxin/dexamethasone eye drops -nephrology consultation: Patient receiving hemodialysis today -GI consultation: Recommendations reviewed -hold anticoagulation -pain management: Add Percocet, Dilaudid -stool for occult blood : Pending -restart Toprol-XL -repeat labs in a.m. Total time spent with patient discussing and formulating plan of care: 35 minutes. This medical document was created using an electronic medical record system with [employer] dictation system. Although this document has been carefully reviewed, there may still be some phonetic and typographical errors. These areas are purely typographical due to imperfections of the software programs, and do not reflect any compromise in the patient's medical care. Plan discussed with: Patient, Other (RN) Date of Service: Feb 02, 2025 Billing Provider: NAVIN CLEMENS NP Common Visit Codes: [id number] INP/OBS CARE(HIGH) NAVIN CLEMENS NP Feb 02, 2025 13:19
[2025-02-02] MEDS ORDERED: PROPOFOL 10 MG/ML 20 ML IV ONE ×2 (13:50→14:13)
[2025-02-02] MEDS ORDERED: LIDOCAINE 2% (LOCAL ANESTH.) PF 5ml SDV ONE (13:56)
[2025-02-02] MEDS: NEOMYCIN-POLYMY-DEXAMETH 0.1% OPTH(EYE) SUSP 5ML LEFTEYE SCH (14:00)
[2025-02-02] MEDS ORDERED: ALBUTEROL SULFATE 90 MCG MDI IN ONE (14:14)
--- NOTE | 2025-02-02 14:40 | DVHOP2 ---
Operative Report DATE OF OPERATION: 02/02/25 PROCEDURE: Colonoscopy with hot snare polypectomy. PREOPERATIVE INDICATION: The patient is a 54 -year-old male undergoing colonoscopy for evaluation of rectal bleeding POSTOPERATIVE DIAGNOSES: 1. 1.5 cm benign-appearing distal transverse colon polyp was seen and removed by hot snare polypectomy and the specimens were retrieved 2. There was a 2 cm tri lobed benign-appearing descending colon polyp that was seen and removed by hot snare polypectomy and the specimens were retrieved 3. Patient had a long tortuous and spastic colon 4. Trace to 1+ internal hemorrhoids otherwise normal examination up to the cecum no fresh or old blood in the GI tract at this time and good bowel prep PROCEDURE PERFORMED BY: Leena Salinas M.D. SCOPE: Olympus videocolonoscope. ASA CLASS: 3 PREOPERATIVE MEDICATIONS: Mac sedation, Abdirahman Hernandez PROCEDURE IN DETAIL: After obtaining an informed consent, the patient was placed on left lateral decubitus position. He was then sedated with the above medications. A rectal examination was performed that was normal. The colonoscope was then passed through the anus into the rectosigmoid and through the descending, transverse, and ascending colon up to the cecum with visualization of the appendiceal orifice, base of the cecum and the ileocecal valve. The colonoscope was then withdrawn. No masses or colitis was noted. There was no fresh or old blood in the colon Patient had a 1.5 cm benign-appearing polyp seen in the distal transverse colon that was removed by hot snare polypectomy and the specimens were retrieved The patient had a 2 cm try lobe benign-appearing descending colon polyp that was seen and removed by hot snare polypectomy and the specimen was retrieved Patient had a somewhat long tortuous and spastic colon but the bowel prep seemed to be adequate On retroflexion he had trace internal hemorrhoids The patient tolerated the procedure well without difficulty. WITHDRAWAL TIME: 10 minutes QUALITY OF THE PREP: Emma Bowel Prep score: 8. COMPLICATIONS : None SPECIMENS: Transverse colon polyp Descending colon polyp DISPOSITION: Transfer back to the floor Stable PLAN: 1. Repeat colonoscopy base on biopsy result in 2-3 years 2. Resume GI soft diet advance as tolerated 3. Avoid aspirin and blood thinners for five days 4. Increase fluid and fiber intake 5. Outpatient follow up with me in 4-6 weeks to review results and discuss further management LEENA SALINAS MD Feb 02, 2025 14:40
--- NOTE | 2025-02-02 14:44 | DVHOP2 ---
Operative Report DATE OF OPERATION: 02/02/25 PROCEDURE: Upper Endoscopy with biopsy. PREOPERATIVE INDICATION: The patient is a 54 -year-old male undergoing endoscopy for GI bleed POSTOPERATIVE DIAGNOSES: 1. 3 cm sliding-type hiatal hernia with slightly irregular squamocolumnar junction grade B erosive esophagitis and some whitish plaques extending into the distal 8 cm of the esophagus 2. Mild antral gastritis with pylorospasm otherwise normal examination up to the 2nd and 3rd part of the duodenum PROCEDURE PERFORMED BY: Amarilys Salinas GI NURSE: Roz SCOPE: Olympus videoendoscope. ASA CLASS: 3 PREOPERATIVE MEDICATIONS: Mac sedation, Abdirahman Hernandez PROCEDURE IN DETAIL: After obtaining an informed consent, the patient was placed on left lateral decubitus position. The patient was then sedated with the above medications. A bite block was placed between his teeth. The endoscope was then passed through the oropharynx, into the esophagus, and through the stomach and pylorus up to the second and third part of the duodenum. The endoscope was then withdrawn. The 2nd and 3rd part of the duodenal and the duodenal bulb were normal. Duo denal biopsies were obtained The pre-pyloric area antrum and body showed mild gastritis. Gastric biopsies were obtained. On retroflexion the fundus cardia and angularis were normal. The endoscope was then withdrawn into the distal esophagus Patient had a 3 cm sliding-type hiatal hernia with slightly irregular squamocolumnar junction grade B erosive esophagitis There were some whitish plaques in the distal 8 cm of the esophagus from which biopsies were obtained The remaining proximal esophagus and oropharynx were unremarkable The patient tolerated the procedure well without difficulty. COMPLICATIONS : None SPECIMENS: Duodenal biopsies Gastric biopsies Esophageal biopsies DISPOSITION: Transfer back to the floor Stable PLAN: 1. Await for biopsy result 2. Will place pt on Protonix 40 mg bid IV 3. Carafate suspension 1 g p.o. twice a day 4. Nystatin swish and swallow 5 mL p.o. three times a day 5. Resume GI soft diet advance as tolerated 6. Outpatient follow up with me in 2-4 weeks to review results and discuss further management AMARILYS SALINAS MD Feb 02, 2025 14:44
--- NOTE | 2025-02-02 17:54 | DVHPN2 ---
Progress Note - Dictate Date Seen: Feb 02, 2025 Medical Necessity Reason Pt with a Central, PICC or Fol: Yes Subjective No complaints today vital signs Vital Sign Date Time Temp Pulse Resp B/P (MAP) Pulse Ox O2 Delivery O2 Flow Rate FiO2 02/02/25 17:00 74 16 160/75 02/02/25 16:51 97.2 92 97.2 02/02/25 14:58 Room Air 0 96 Total Intake and Output 02/01/25 02/01/25 02/02/25 15:00 23:00 07:00 Intake Total 600 ml 0 ml Balance 600 ml 0 ml medications Current Medications Medications Dose Ordered Sig/Caroline Route Start Time Stop Time Status Last Admin Dose Admin Atorvastatin Calcium 10 mg HS PO 01/29/25 22:00 02/01/25 21:47 10 MG Hydralazine HCl 10 mg Q6HP PRN IV 01/29/25 15:15 02/02/25 06:54 10 MG Multivit/Ca Carb/ B Cmplx/FA/Prenat 1 tab DAILY PO 01/30/25 10:00 02/02/25 08:48 1 TAB Sevelamer HCl 800 mg TIDWM PO 01/29/25 18:00 02/02/25 08:48 800 MG Sodium Chloride 10 ml Q8HR IV 01/29/25 22:00 02/02/25 15:26 10 ML Ondansetron HCl 4 mg Q4HP PRN IV 01/29/25 15:15 02/02/25 11:55 4 MG Docusate Sodium 100 mg BIDPRN PRN PO 01/29/25 15:15 02/01/25 21:55 100 MG Acetaminophen 650 mg Q6HP PRN PO 01/29/25 15:15 02/02/25 05:41 650 MG Diagnostic Test (Pha) 1 strip ACHS 01/29/25 17:00 02/02/25 17:03 1 STRIP Insulin Human Regular ACHS SC 01/29/25 17:00 Dextrose 50 ml UD PRN IV 01/29/25 15:15 Nitroglycerin 0.4 mg Q5MINP PRN SL 01/29/25 16:45 Oxycodone/ Acetaminophen 1 tab Q6HP PRN PO 01/30/25 11:30 02/02/25 11:55 1 TAB Pantoprazole Sodium 40 mg BID IV 01/31/25 10:00 02/02/25 08:44 40 MG Hydromorphone HCl 0.5 mg Q6HPRN PRN IV 02/01/25 09:00 02/02/25 15:21 0.5 MG Metoprolol Succinate 25 mg DAILY PO 02/01/25 10:00 02/02/25 08:48 25 MG Artificial Tears 1 drop Q6HP PRN EACHEYE 02/01/25 12:45 02/02/25 03:36 1 DROP Neomycin/ Polymyxin/ Dexamethasone 1 drop Q4HR LEFTEYE 02/02/25 14:00 Sucralfate 1 gm BID@0600,2200 PO 02/02/25 22:00 Nystatin 5 ml QID MT 02/02/25 18:00 objective HEENT: No evidence of JVD, no oral ulcers. Pulmonary: Lungs are clear on auscultation bilaterally Cardiovascular S1-S2, no S3 or S4 Abdomen: Bowel sounds positive, soft no rebound tenderness Skin: No rash Neurological: Alert, oriented, no focal weakness laboratory and microbiology Laboratory Tests 02/02/25 05:56 Test 02/02/25 05:56 Range/Units Serum Glucose 74 74-106 mg/dL Assessment/Plan Assessment: 1. End-stage renal disease on hemodialysis TTS 2. Severe hyperkalemia managed with dialysis 3. GI bleed 4. Anemia of blood loss acute and end-stage renal disease Status post one PRBC 5. CHF 6. Hypertension Plan: Continue dialysis TTS Endoscopy was done Monitor H&H transfuse as needed Continue rest of management as per primary team Javed will be given for goal hemoglobin 10-11 Thank you very much for allowing us to participate in care of this patient Dietary Evaluation Review Comments: 1. Accommondate pt's likes, 2. encourage and monitor PO feedings to meet at least 75% of his needs. 3. Offer Nepro PO 240 supplements BID if PO intake<75% 4. REnal standad CCHO-60 diet Expected Outcomes/Goals: avoid uremia, maintain BW and prevent wt loss Plan discussed with: Patient CC Plasma Assessment Blood Product Administration S: [id number] SURINDER RUANO MD Feb 02, 2025 17:54
[2025-02-02] MEDS: NYSTATIN (MOUTH-THROAT) 500,000 UNITS/5 ML SUSP MT SCH (18:58)
[2025-02-02] MEDS: SUCRALFATE 1 GM/10 ML ORAL SUSP PO SCH (21:11)
[2025-02-03 01:00] VITALS: BP 196/63; PULSE 76; RESP 17; TEMP 97.7; O2SAT 94
[2025-02-03 05:00] VITALS: BP 150/67; PULSE 68; RESP 18; TEMP 98.2; O2SAT 95
[2025-02-03 08:00] VITALS: PULSE 83; PULSE 87; RESP 20; O2SAT 97
[2025-02-03 09:00] VITALS: BP 158/78; PULSE 74; RESP 20; TEMP 97.9; O2SAT 97
--- NOTE | 2025-02-03 14:42 | DVHPN2 ---
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 Dyspnea, No Edema, No Lt Headedness; Other (Pacemaker) Respiratory: No Cough, No Dry, No Shortness of breath, No SOB with excertion, No Wheezing, No Hemoptysis, No Pleuritic Pain, No Sputum, No Other Gastrointestinal: No Nausea, No Vomiting, No Abdominal Pain, No Diarrhea, No Constipation; Melena; No Hematochezia; Other (Blood streaked bowels) Genitourinary: No Dysuria, No Frequency, No Incontinence, No Hematuria, No Retention, No Other Musculoskeletal: No other, No neck pain, No shoulder pain, No arm pain, No back pain, No hand pain, No leg pain, No foot pain Skin: No Rash, No Lesions, No Jaundice, No Bruising, No Other Objective Vitals Vital Signs Date Time Temp Pulse Resp B/P (MAP) Pulse Ox O2 Delivery O2 Flow Rate FiO2 02/03/25 09:23 74 20 158/78 02/03/25 09:00 97.9 97 97.9 02/03/25 08:00 Room Air* 0 21 Intake/Output Intake and Output 02/03/25 07:00 Intake Total 890 ml Balance 890 ml Intake Oral 880 ml IV Total 10 ml General Appearance: Alert, Oriented X3, Cooperative, No acute distress HEENT: Atraumatic, PERRLA Lungs: Clear to auscultation, Normal air movement Cardiovascular: Normal S1, Normal S2 Abdomen: Normal bowel sounds, Soft, No tenderness, No hepatospenomegaly Genitourinary: No Apparent Abnormalities Back: Flank Tenderness, Midline Tenderness Musculoskeletal: Normal sensory function, Normal motor function Neuro: Normal gait, Normal speech Skin: Dry, Intact Psych/Mental Status: Mental status NL, Mood NL Medications Current Medications Medications Dose Ordered Sig/Caroline Route Start Time Stop Time Status Last Admin Dose Admin Atorvastatin Calcium 10 mg HS PO 01/29/25 22:00 02/02/25 21:11 10 MG Hydralazine HCl 10 mg Q6HP PRN IV 01/29/25 15:15 02/03/25 03:17 10 MG Multivit/Ca Carb/ B Cmplx/FA/Prenat 1 tab DAILY PO 01/30/25 10:00 02/03/25 09:09 1 TAB Sevelamer HCl 800 mg TIDWM PO 01/29/25 18:00 02/03/25 12:06 800 MG Sodium Chloride 10 ml Q8HR IV 01/29/25 22:00 02/03/25 12:08 10 ML Ondansetron HCl 4 mg Q4HP PRN IV 01/29/25 15:15 02/02/25 11:55 4 MG Docusate Sodium 100 mg BIDPRN PRN PO 01/29/25 15:15 02/01/25 21:55 100 MG Acetaminophen 650 mg Q6HP PRN PO 01/29/25 15:15 02/02/25 05:41 650 MG Diagnostic Test (Pha) 1 strip ACHS 01/29/25 17:00 02/03/25 11:20 1 STRIP Insulin Human Regular ACHS SC 01/29/25 17:00 Dextrose 50 ml UD PRN IV 01/29/25 15:15 Nitroglycerin 0.4 mg Q5MINP PRN SL 01/29/25 16:45 Oxycodone/ Acetaminophen 1 tab Q6HP PRN PO 01/30/25 11:30 02/03/25 01:38 1 TAB Pantoprazole Sodium 40 mg BID IV 01/31/25 10:00 02/03/25 09:09 40 MG Hydromorphone HCl 0.5 mg Q6HPRN PRN IV 02/01/25 09:00 02/03/25 09:23 0.5 MG Metoprolol Succinate 25 mg DAILY PO 02/01/25 10:00 02/02/25 08:48 25 MG Artificial Tears 1 drop Q6HP PRN EACHEYE 02/01/25 12:45 02/02/25 03:36 1 DROP Neomycin/ Polymyxin/ Dexamethasone 1 drop Q4HR LEFTEYE 02/02/25 14:00 02/03/25 12:06 1 DROP Sucralfate 1 gm BID@0600,2200 PO 02/02/25 22:00 02/03/25 05:41 1 GM Nystatin 5 ml QID MT 02/02/25 18:00 02/03/25 12:06 5 ML Laboratory Results Laboratory Tests 02/02/25 05:56 Microbiology Microbiology Date/Time Source Procedure Growth Status 01/31/25 06:15 Nose MRSA Screen - Final Complete Labs and/or images reviewed: Labs reviewed by me Assessment/Plan Assessment/Plan gi bleed- egd report reviwed hiatal hernia- ppi/advised on diet trisha oesophagitis- treat dvt rt upper extremity- 01/11- anticoagulation on hold due to recent gi bleed h/o discitis 12/11- has completed 6 weeks of antibiotics- per records has been on antibiotics since 12/21/24 even week earlier as test was positive 12/11/24-explained esrd on dialysis Plan discussed with: Patient, Other (nurse- not able to talk to family member on phone as no pass word set up yet/person was not aware of ) Date of Service: Feb 03, 2025 Billing Provider: MARCO CHIN MD Common Visit Codes: [id number] INP/OBS CARE(HIGH) MARCO CHIN MD Feb 03, 2025 14:42
[2025-02-03] MEDS: SODIUM CHL 0.9% 1000 ML BAG XX ONE (15:00)
--- NOTE | 2025-02-03 16:11 | DVHPN2 ---
Progress Note - Dictate Date Seen: Feb 03, 2025 Medical Necessity Reason Pt with a Central, PICC or Fol: Yes Subjective Feels slightly fluid overloaded vital signs Vital Sign Date Time Temp Pulse Resp B/P (MAP) Pulse Ox O2 Delivery O2 Flow Rate FiO2 02/03/25 11:30 73 20 169/74 02/03/25 09:00 97.9 97 97.9 02/03/25 08:00 Room Air* 0 21 Total Intake and Output 02/02/25 02/02/25 02/03/25 15:00 23:00 07:00 Intake Total 10 ml 400 ml 480 ml Balance 10 ml 400 ml 480 ml medications Current Medications Medications Dose Ordered Sig/Caroline Route Start Time Stop Time Status Last Admin Dose Admin Atorvastatin Calcium 10 mg HS PO 01/29/25 22:00 02/02/25 21:11 10 MG Hydralazine HCl 10 mg Q6HP PRN IV 01/29/25 15:15 02/03/25 03:17 10 MG Sevelamer HCl 800 mg TIDWM PO 01/29/25 18:00 02/03/25 12:06 800 MG Sodium Chloride 10 ml Q8HR IV 01/29/25 22:00 02/03/25 12:08 10 ML Docusate Sodium 100 mg BIDPRN PRN PO 01/29/25 15:15 02/01/25 21:55 100 MG Acetaminophen 650 mg Q6HP PRN PO 01/29/25 15:15 02/02/25 05:41 650 MG Pantoprazole Sodium 40 mg BID IV 01/31/25 10:00 02/03/25 09:09 40 MG Metoprolol Succinate 25 mg DAILY PO 02/01/25 10:00 02/02/25 08:48 25 MG Artificial Tears 1 drop Q6HP PRN EACHEYE 02/01/25 12:45 02/02/25 03:36 1 DROP Sucralfate 1 gm BID@0600,2200 PO 02/02/25 22:00 02/03/25 05:41 1 GM Nystatin 5 ml QID MT 02/02/25 18:00 02/03/25 12:06 5 ML objective HEENT: No evidence of JVD, no oral ulcers. Pulmonary: Lungs are clear on auscultation bilaterally Cardiovascular S1-S2, no S3 or S4 Abdomen: Bowel sounds positive, soft no rebound tenderness Skin: No rash Neurological: Alert, oriented, no focal weakness laboratory and microbiology Laboratory Tests 02/02/25 05:56 Test 02/02/25 05:56 Range/Units Serum Glucose 74 74-106 mg/dL Assessment/Plan Assessment: 1. End-stage renal disease on hemodialysis TTS 2. Severe hyperkalemia managed with dialysis 3. GI bleed 4. Anemia of blood loss acute and end-stage renal disease Status post one PRBC 5. CHF 6. Hypertension Plan: Continue dialysis TTS Endoscopy was done Monitor H&H transfuse as needed Continue rest of management as per primary team Javed will be given for goal hemoglobin 10-11 Cleared from Nephrology perspective to go home once dialysis is completed today Thank you very much for allowing us to participate in care of this patient Dietary Evaluation Review Comments: 1. Accommondate pt's likes, 2. encourage and monitor PO feedings to meet at least 75% of his needs. 3. Offer Nepro PO 240 supplements BID if PO intake<75% 4. REnal standad CCHO-60 diet Expected Outcomes/Goals: avoid uremia, maintain BW and prevent wt loss Plan discussed with: Patient CC Plasma Assessment Blood Product Administration S: [id number] SURINDER RUANO MD Feb 03, 2025 16:11
[2025-02-03 17:00] VITALS: BP 164/79; PULSE 73; RESP 20; TEMP 97.9; O2SAT 91
--- NOTE | 2025-02-03 17:57 | DVH ---
CLINICAL HISTORY: F/U DVT SEEN 01/22/25 TECHNIQUE: Color and duplex doppler imaging of the right upper extremity veins and right subclavian v ein was performed. Vessel compression if possible was also performed. WID: COMPARISON: US RT UPPER DVT on DOS: 01/22/25, FINDINGS: The axillary, basilic, brachial, radial, ulnar veins are patent and demonstrate normal compressibi lity and flow. There is partial thrombosis of the cephalic vein at the forearm. Echogenic thrombus. The right subclavian is patent. Complete occlusion of the right internal jugular vein with intermediate/ high density thrombus. IMPRESSION: 1. 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 2. Partial chronic superficial vein thrombus in the cephalic vein at the forearm. Critical Result: Right internal jugular vein DVT, Subacute to chronic Findings discussed with ARASH Hobson at 02/03/2025 05:54 PM by the tube buffer, and acknowledged receipt and understanding of the findings. ..
[2025-02-03 20:00] VITALS: RESP 16; O2SAT 99
[2025-02-03] MEDS: EPOETIN ALFA-EPBX 10,000 UNIT/1ML VIAL SC ONE (21:29)
[2025-02-04] VITALS (9 sets, daily range): BP systolic 139–204; BP diastolic 43–90; PULSE 71–83; RESP 16–20; TEMP 97.5–98.5; O2SAT 93–99
[2025-02-04] MEDS: LORazepam 0.5 MG TAB PO PRN (00:57)
[2025-02-04] MEDS ORDERED: HYDROcodone-ACET 7.5/325MG TAB PO PRN (12:15)
--- NOTE | 2025-02-04 12:20 | DVHPN2 ---
Subjective states tylenol is not helping him chronic back pain and pain in right arm from dvt- requesting pain med no other concerns/complaints- requested hospitalist switch earlier for for this pain med issue Reviewed: Care Plan, H&P, Labs, Medications Changes from previous H/P or p: No Changes General: Per HPI Eyes: No Pain, No Vision change, No Conjunctivae inflammation, No Eyelid inflammation, No Other, No Redness ENT: No Ear pain, No Ear discharge, No Nose pain, No Nose discharge, No Nose congestion, No Mouth pain, No Mouth swelling, No Throat pain, No Throat swelling, No Other Cardiovascular: No Chest Pain, No Palpitations, No Orthopnea, No Paroxysmal Noc. Dyspnea, No Edema, No Lt Headedness; Other (Pacemaker) Respiratory: No Cough, No Dry, No Shortness of breath, No SOB with excertion, No Wheezing, No Hemoptysis, No Pleuritic Pain, No Sputum, No Other Gastrointestinal: No Nausea, No Vomiting, No Abdominal Pain, No Diarrhea, No Constipation; Melena; No Hematochezia; Other (Blood streaked bowels) Genitourinary: No Dysuria, No Frequency, No Incontinence, No Hematuria, No Retention, No Other Musculoskeletal: No other, No neck pain, No shoulder pain, No arm pain, No back pain, No hand pain, No leg pain, No foot pain Skin: No Rash, No Lesions, No Jaundice, No Bruising, No Other Objective Vitals Vital Signs Date Time Temp Pulse Resp B/P (MAP) Pulse Ox O2 Delivery O2 Flow Rate FiO2 02/04/25 09:51 80 154/61 02/04/25 08:05 Room Air* 0 21 02/04/25 05:00 97.5 18 93 97.5 Intake/Output Intake and Output 02/04/25 07:00 Intake Total 1090 ml Balance 1090 ml Intake Oral 1090 ml General Appearance: Alert, Oriented X3, Cooperative, No acute distress HEENT: Atraumatic, PERRLA Lungs: Clear to auscultation, Normal air movement Cardiovascular: Normal S1, Normal S2 Abdomen: Normal bowel sounds, Soft, No tenderness, No hepatospenomegaly Genitourinary: No Apparent Abnormalities Back: Flank Tenderness, Midline Tenderness Musculoskeletal: Normal sensory function, Normal motor function Neuro: Normal gait, Normal speech Skin: Dry, Intact Psych/Mental Status: Mental status NL, Mood NL Medications Current Medications Medications Dose Ordered Sig/Caroline Route Start Time Stop Time Status Last Admin Dose Admin Atorvastatin Calcium 10 mg HS PO 01/29/25 22:00 02/03/25 21:30 10 MG Hydralazine HCl 10 mg Q6HP PRN IV 01/29/25 15:15 02/03/25 03:17 10 MG Sevelamer HCl 800 mg TIDWM PO 01/29/25 18:00 02/04/25 09:46 800 MG Sodium Chloride 10 ml Q8HR IV 01/29/25 22:00 02/04/25 05:32 10 ML Docusate Sodium 100 mg BIDPRN PRN PO 01/29/25 15:15 02/01/25 21:55 100 MG Acetaminophen 650 mg Q6HP PRN PO 01/29/25 15:15 02/04/25 09:51 650 MG Pantoprazole Sodium 40 mg BID IV 01/31/25 10:00 02/03/25 21:29 40 MG Metoprolol Succinate 25 mg DAILY PO 02/01/25 10:00 02/04/25 09:51 25 MG Artificial Tears 1 drop Q6HP PRN EACHEYE 02/01/25 12:45 02/04/25 10:04 1 DROP Sucralfate 1 gm BID@0600,2200 PO 02/02/25 22:00 02/04/25 05:32 1 GM Nystatin 5 ml QID MT 02/02/25 18:00 02/04/25 05:32 5 ML Lorazepam 1 mg Q8HP PRN PO 02/04/25 01:00 02/04/25 00:57 1 MG Laboratory Results Laboratory Tests 02/02/25 05:56 Microbiology Microbiology Date/Time Source Procedure Growth Status 01/31/25 06:15 Nose MRSA Screen - Final Complete Labs and/or images reviewed: Labs reviewed by me, Image(s) reviewed by me Assessment/Plan Assessment/Plan EDgi bleed- egd report reviwed hiatal hernia- ppi/advised on diet trisha oesophagitis- treat dvt rt upper extremity- 01/11- anticoagulation on hold -will be for 2 weeks per standard of care - due to recent gi bleed/pain control h/o discitis 12/11- has completed 6 weeks of antibiotics- per records has been on antibiotics since 12/21/24 and COMPLETED( even week earlier as test was positive 12/11/24-)explained-since still in pain consult neurosurgeon esrd on dialysis Plan discussed with: Patient, Other My Orders Orders - MARCO CHIN MD Procedure Category Date Status Time Rt Upper Dvt US 02/03/25 Resulted 16:32 Complete Blood Count LAB 02/04/25 Logged 11:55 Potassium LAB 02/04/25 Logged 11:55 Hydrocodone-Acet PHA 02/04/25 Verified 7.5/325mg Tab ([place] 12:00 Date of Service: Feb 04, 2025 Billing Provider: MARCO CHIN MD Common Visit Codes: [id number] INP/OBS CARE(HIGH) MARCO CHIN MD Feb 04, 2025 12:20
[2025-02-04 13:27] LABS: Hematocrit 26.5 % (41.0-53.0); Hemoglobin 8.8 g/dL (13.5-17.5); Mean Corpuscular Hemoglobin 29.7 pg (28.0-32.0); Mean Corpuscular Volume 89.6 fL (80.0-100.0); Nucleated Red Blood Cells % 0.1 %
[2025-02-04] MEDS: DOCUSATE ORAL LIQUID 100 MG/10 ML UD PO ONE (13:56)
[2025-02-04] MEDS: HYDROcodone-ACET 7.5/325MG TAB PO PRN (13:57)
[2025-02-04] MEDS: PANTOPRAZOLE 40 MG TAB PO ONE (13:57)
--- NOTE | 2025-02-04 15:45 | DVHPN2 ---
Progress Note - Dictate Date Seen: Feb 04, 2025 Medical Necessity Reason Pt with a Central, PICC or Fol: Yes Subjective Dialysis was completed yesterday, no acute events patient had an issue with chronic back pain and right arm pain acute lupus night vital signs Vital Sign Date Time Temp Pulse Resp B/P (MAP) Pulse Ox O2 Delivery O2 Flow Rate FiO2 02/04/25 13:00 97.9 78 20 162/69 (100) 93 97.9 02/04/25 08:05 Room Air* 0 21 Total Intake and Output 02/03/25 02/03/25 02/04/25 15:00 23:00 07:00 Intake Total 180 ml 430 ml 480 ml Balance 180 ml 430 ml 480 ml medications Current Medications Medications Dose Ordered Sig/Caroline Route Start Time Stop Time Status Last Admin Dose Admin Atorvastatin Calcium 10 mg HS PO 01/29/25 22:00 02/03/25 21:30 10 MG Hydralazine HCl 10 mg Q6HP PRN IV 01/29/25 15:15 02/03/25 03:17 10 MG Sevelamer HCl 800 mg TIDWM PO 01/29/25 18:00 02/04/25 13:57 800 MG Sodium Chloride 10 ml Q8HR IV 01/29/25 22:00 02/04/25 14:55 10 ML Docusate Sodium 100 mg BIDPRN PRN PO 01/29/25 15:15 02/01/25 21:55 100 MG Acetaminophen 650 mg Q6HP PRN PO 01/29/25 15:15 02/04/25 09:51 650 MG Metoprolol Succinate 25 mg DAILY PO 02/01/25 10:00 02/04/25 09:51 25 MG Artificial Tears 1 drop Q6HP PRN EACHEYE 02/01/25 12:45 02/04/25 10:04 1 DROP Sucralfate 1 gm BID@0600,2200 PO 02/02/25 22:00 02/04/25 05:32 1 GM Nystatin 5 ml QID MT 02/02/25 18:00 02/04/25 13:56 5 ML Acetaminophen/ Hydrocodone Bitart 1 tab Q6HP PRN PO 02/04/25 12:00 02/04/25 13:57 1 TAB Acetaminophen/ Hydrocodone Bitart 1 tab Q6HP PRN PO 02/04/25 12:15 UNV Pantoprazole Sodium 40 mg BID PO 02/04/25 22:00 Lorazepam 1 mg BID PRN PO 02/04/25 20:30 Docusate Sodium 100 mg DAILY PO 02/05/25 10:00 objective HEENT: No evidence of JVD, no oral ulcers. Pulmonary: Lungs are clear on auscultation bilaterally Cardiovascular S1-S2, no S3 or S4 Abdomen: Bowel sounds positive, soft no rebound tenderness Skin: No rash Neurological: Alert, oriented, no focal weakness laboratory and microbiology Laboratory Tests 02/04/25 12:42 02/02/25 05:56 Test 02/02/25 05:56 Range/Units Serum Glucose 74 74-106 mg/dL Assessment/Plan Assessment: 1. End-stage renal disease on hemodialysis TTS 2. Hyperkalemia managed with dialysis 3. Resolved GI bleed 4. Anemia of blood loss acute and end-stage renal disease Status post one PRBC 5. CHF 6. Hypertension 7. chronic back pain Plan: Continue dialysis TTS Patient takes [place] 10/325 twice a day at home Endoscopy was done Monitor H&H transfuse as needed Continue rest of management as per primary team Javed will be given for goal hemoglobin 10-11 Patient is stable from Nephrology perspective Thank you very much for allowing us to participate in care of this patient Dietary Evaluation Review Comments: 1. Accommondate pt's likes, 2. encourage and monitor PO feedings to meet at least 75% of his needs. 3. Offer Nepro PO 240 supplements BID if PO intake<75% 4. REnal standad CCHO-60 diet Expected Outcomes/Goals: avoid uremia, maintain BW and prevent wt loss Plan discussed with: Patient CC Plasma Assessment Blood Product Administration S: [id number] SURINDER RUANO MD Feb 04, 2025 15:45
[2025-02-04] MEDS: SEVELAMER 800 MG TAB PO SCH (17:11)
[2025-02-04] MEDS: PANTOPRAZOLE 40 MG TAB PO SCH (21:14)
[2025-02-05] VITALS (10 sets, daily range): BP systolic 146–182; BP diastolic 41–91; PULSE 72–87; RESP 16–20; TEMP 97.6–98.2; O2SAT 94–99
[2025-02-05] MEDS: DOCUSATE ORAL LIQUID 100 MG/10 ML UD PO SCH (08:56)
[2025-02-05] MEDS: LORazepam 0.5 MG TAB PO PRN (08:59)
--- NOTE | 2025-02-05 10:23 | DVHDS2 ---
Discharge Summary Date of Admission Jan 29, 2025 at 16:31 Date of Discharge: Feb 05, 2025 Admitting Diagnosis GI bleed Labs/Diagnostic Data: Laboratory Results Test 02/04/25 12:42 02/03/25 11:07 02/02/25 06:42 02/02/25 05:56 White Blood Count 4.2 10^3/uL (4.4-10.8) Red Blood Count 2.96 10^6/uL (4.5-5.90) Hemoglobin 8.8 g/dL (13.5-17.5) Hematocrit 26.5 % (41.0-53.0) Mean Corpuscular Volume 89.6 fL (80.0-100.0) Mean Corpuscular Hemoglobin 29.7 pg (28.0-32.0) Mean Corpuscular Hemoglobin Concent 33.1 g/dL (32.0-36.0) Red Cell Distribution Width 18.2 % (11.8-14.3) Platelet Count 249 10^3/uL (140-450) Mean Platelet Volume 8.2 fL (6.9-10.8) Neutrophils (%) (Auto) 71.8 % (37.0-80.0) Lymphocytes (%) (Auto) 11.4 % (10.0-50.0) Monocytes (%) (Auto) 10.6 % (0.0-12.0) Eosinophils (%) (Auto) 5.1 % (0.0-7.0) Basophils (%) (Auto) 1.1 % (0.0-2.0) Neutrophils # (Auto) 3.0 10 ^3/uL (1.6-8.6) Lymphocytes # (Auto) 0.5 10 ^3/uL (0.4-5.4) Monocytes # (Auto) 0.4 10 ^3/uL (0-1.3) Eosinophils # (Auto) 0.2 10 ^3/uL (0-0.8) Basophils # (Auto) 0 10 ^3/uL (0-0.2) Nucleated Red Blood Cells 0.1 % Potassium Level 4.7 mmol/L (3.5-5.1) POC Glucose 132 mg/dl (70-106) Stool Occult Blood Positive (Negative) Stool Occult Blood Sample #3 (Negative) Sodium Level 137 mmol/L (136-145) Chloride Level 95 mmol/L (98-107) Carbon Dioxide Level 33 mmol/L (20-31) Anion Gap 9 (5-15) Blood Urea Nitrogen 21 mg/dL (9-23) Creatinine 4.83 mg/dL (0.700-1.30) Glomerular Filtration Rate Calc 14 mL/min (>90) BUN/Creatinine Ratio 4.3 (10.0-20.0) Serum Glucose 74 mg/dL (74-106) Calcium Level 10.1 mg/dL (8.7-10.4) Test 01/31/25 05:38 01/29/25 13:55 Platelet Estimate [place] Large Platelets Few Total Bilirubin < 0.2 mg/dL (0.2-1.0) Aspartate Amino Transferase (AST) 21 U/L (13-40) Alanine Aminotransferase (ALT) 9 U/L (7-40) Alkaline Phosphatase 82 U/L (46-116) Total Protein 6.2 g/dL (5.7-8.2) Albumin 3.5 g/dL (3.2-4.8) Prothrombin Time 17.4 sec (9.3-11.8) Prothrombin Time INR 1.73 (0.9-1.15) Activated Partial Thromboplast Time 39.9 SEC (24.5-34.5) Magnesium Level 3.2 mg/dL (1.6-2.6) Iron Level 77 ug/dL (65-175) Total Iron Binding Capacity 196 ug/dL (250-425) Percent Iron Saturation 39.3 % (20-55) Ferritin 604.5 ng/mL (22-322) Ammonia < 10 umol/L (11-32) Hepatitis B Surface Antigen Negative (Negative) Other Laboratory Tests 02/04/25 12:42 02/02/25 05:56 Brief Hx & Hospital Course: History of Present Illness The patient is a 54-year-old male with multiple past medical history including Coronary artery disease, CHF, diabetes mellitus, end-stage renal disease on hemodialysis, and hypertension who presented to [facility] ED with complaint of gastrointestinal bleed. Patient reports that he was discharged from [facility] this morning to [facility]. He informed staff member that he has blood in stool at this afternoon and EMS were called. Patient described blood as bright red, dark with hematemesis. Patient was seen and evaluated in the ED, laboratory data shows WBC 4.6, hemoglobin 6.9, hematocrit 21.1, platelets 257, sodium 133, potassium 7.3, BUN 105, creatinine 10.87, GFR 5, glucose 81, calcium 9.4, magnesium 3.2, ammonia 10, PT 17.4, INR 1.73, APTT 29.9, blood pressure 153/85, heart rate 69, temperature 98.0 F, O2 saturation 96% on room air. Type and screen 1 unit PRBC. Please see medication orders section in the computer. On my assessment, patient denies headache, chest pain, dizziness, currently on oxygen, no abdominal pain, diarrhea, nausea, vomiting, fever, chills. Patient was admitted for further evaluation and medical management. Course of hospitalization: Patient was seen by Gastroenterology. Patient was placed on Carafate , PPI. Antiplatelet and anticoagulation was held. Patient was given IV antibiotic therapy for continuation of treatment of diskitis. Patient went upper and lower endoscopy on 02/02/2025. No active signs of bleeding were noted. Patient's diet was advanced. He was continued on hemodialysis while in the hospital. Patient will be discharged back to [facility] for continuation of IV antibiotic therapy for diskitis. Patient was agreeable with discharge plan. All questions answered. Physical examination General: Alert and Oriented x3. No acute distress. Well-nourished. Obese Eyes: EOMI. Anicteric. HENT: Moist mucous membranes. Lungs: Clear to auscultation bilaterally. No accessory muscle use. Cardiovascular: Regular rate and rhythm. No murmur. No JVD. Abdomen: Soft, non-tender and non-distended. No palpable masses. Extremities: No edema. Non-tender. Left upper extremity dialysis fistula Skin: No rashes or lesions. Warm. Neurologic: No focal neurological deficits. CN II-XII grossly intact, but not individually tested. Psychiatric: Cooperative. Appropriate mood and affect. Total time spent with patient discussing and formulating plan of care: 35 minutes. This medical document was created using an electronic medical record system with [employer] system. Although this document has been carefully reviewed, there may still be some phonetic and typographical errors. These areas are purely typographical due to imperfections of the software programs, and do not reflect any compromise in the patient's medical care. Consults/Reason for consult Nephrology: Hemodialysis Gastroenterology: GI bleed Condition at Discharge: Guarded Final Diagnosis/Problems List GI bleed -GI bleed -coronary artery disease with previous stent placement and CABG -end-stage renal disease with hemodialysis -anemia of chronic disease -right upper extremity and internal jugular DVT -dyslipidemia -hypoglycemia -accelerated hypertension -Diskitis Discharge Disposition: Custodial Facility Discharge Instruct/Medications Diet: Cardiac 2g Na,low cholest, Renal Activity: No Restrictions, As Tolerated Follow Up/Referral: Per accepting provider Medications: Per medication reconciliation form Complete previous order for IV abx. Scheduled Amlodipine Besylate (Amlodipine Besylate), 1 TAB PO DAILY, (Reported) Apixaban Base (Eliquis), 5 MG PO BID Atorvastatin Calcium (Atorvastatin Calcium), 1 TAB PO DAILY Carvedilol (Carvedilol), 1 TAB PO BID, (Reported) Folic Acid-Vitamin B6-Vitamin (B Complex/Folic Acid), 1 CAP OR DAILY Hydralazine Hcl (Hydralazine Hcl), 1 TAB PO TID, (Reported) Hydrocodone-Acetaminophen (Hydrocodone Bitartrate/AC 10-325 mg), 1 TAB PO QID, (Reported) Insulin Glargine (Lantus Solostar), 100 UNIT SC QPM Insulin Lispro (Insulin Lispro), 100 UNIT IJ TID Metoprolol Succinate (Metoprolol Succinate Er), 1 TAB PO DAILY Nifedipine (Nifedipine Er), 1 TAB PO DAILY Patients Own Medication (Patients Own Medication), 1 PATCH TD DAILY, (Reported) Sevelamer Carbonate (Sevelamer Carbonate), 4 TAB PO TID, (Reported) Ticagrelor Base (Brilinta), 60 MG PO BID Trazodone Hcl (Trazodone Hcl), 1 TAB PO DAILY, (Reported) Scheduled PRN Acetaminophen (Acetaminophen), 650 MG PO Q6HP PRN Albuterol Sulfate (Albuterol Sulfate), 1 VIAL NEB Q4HPRN PRN Diphenhydramine-Zinc Acetate (Benadryl Cream), 1 APPLIC TOP Q6HPRN PRN Lorazepam (Lorazepam), 1 TAB PO BIDPRN PRN for ANXIETY, (Reported) 36 Discharge Statement: "Patient was advised to return to the ER or call 911 if any headaches, dizziness, shortness of breath, chest pain, abdominal pain, bleeding, fevers, or worsening of medical condition. Patient was counseled about treatment plan, medications, possible side effects, patientverbalized understanding. All questions were answered to the best of my ability. This discharge took greater then 30 minutes in planning, reviewing documentation, counseling the patient, and discussing with other team members." ASSESSMENT ASSESSMENT Assessment GI bleed Date of Service: Feb 05, 2025 Billing Provider: NAVIN CLEMENS NP Common Visit Codes: 74572-XMD/OBS DISCH DAY >30min NAVIN CLEMENS NP Feb 05, 2025 10:23
[2025-02-05] MEDS: APIXABAN 2.5 MG TAB PO SCH (11:59)
[2025-02-05] MEDS: CEFEPIME 1GM/50ML 50 ML IV ONE (12:01)
--- NOTE | 2025-02-05 16:07 | DVHPN2 ---
Progress Note Date Seen: Feb 05, 2025 Resident Creating Document: JHTRENTON REESE RESIDENT Medical Necessity Reason Pt with a Central, PICC or Fol: Yes Subjective Review of Systems Patient seen and examined with the bedside Does not report of any abdominal pain/nausea/vomiting, reported having bowel movement today brownish in color, no melena or hematochezia Objective vital signs Vital Sign Date Time Temp Pulse Resp B/P (MAP) Pulse Ox O2 Delivery O2 Flow Rate FiO2 02/05/25 13:12 97.9 75 18 96 02/05/25 13:00 182/79 (113) 02/05/25 08:05 Room Air* 0 21 Total Intake and Output 02/04/25 02/04/25 02/05/25 15:00 23:00 07:00 Intake Total 416 ml 852 ml 100 ml Balance 416 ml 852 ml 100 ml medications Current Medications Medications Dose Ordered Sig/Caroline Route Start Time Stop Time Status Last Admin Dose Admin Atorvastatin Calcium 10 mg HS PO 01/29/25 22:00 02/04/25 21:14 10 MG Hydralazine HCl 10 mg Q6HP PRN IV 01/29/25 15:15 02/05/25 11:45 10 MG Sodium Chloride 10 ml Q8HR IV 01/29/25 22:00 02/05/25 13:03 10 ML Docusate Sodium 100 mg BIDPRN PRN PO 01/29/25 15:15 02/01/25 21:55 100 MG Acetaminophen 650 mg Q6HP PRN PO 01/29/25 15:15 02/05/25 05:29 650 MG Metoprolol Succinate 25 mg DAILY PO 02/01/25 10:00 02/05/25 08:58 25 MG Artificial Tears 1 drop Q6HP PRN EACHEYE 02/01/25 12:45 02/05/25 10:24 1 DROP Sucralfate 1 gm BID@0600,2200 PO 02/02/25 22:00 02/05/25 05:19 1 GM Nystatin 5 ml QID MT 02/02/25 18:00 02/05/25 12:06 5 ML Acetaminophen/ Hydrocodone Bitart 1 tab Q6HP PRN PO 02/04/25 12:00 02/05/25 10:23 1 TAB Acetaminophen/ Hydrocodone Bitart 1 tab Q6HP PRN PO 02/04/25 12:15 UNV Pantoprazole Sodium 40 mg BID PO 02/04/25 22:00 02/05/25 08:58 40 MG Lorazepam 1 mg BID PRN PO 02/04/25 20:30 02/05/25 08:59 1 MG Docusate Sodium 100 mg DAILY PO 02/05/25 10:00 02/05/25 08:56 100 MG Sevelamer HCl 2,400 mg TIDWM PO 02/04/25 18:00 02/05/25 11:58 2,400 MG Apixaban 2.5 mg BID PO 02/05/25 10:00 02/05/25 11:59 2.5 MG Cefepime HCl 0.5 gm/Sodium Chloride 50 ml @ 12.5 mls/hr DAILY IV 02/06/25 10:00 Examination Gen - no pallor, no scleral icterus Skin - Patients skin is warm and dry. HEENT - normocephalic, atraumatic, dry mucous membranes. Neck - supple, no lymphadenopathy Pulmonary - B/L equal air entry with vesicular breath sounds cardiovascular - regular S1,S2 heard GI - soft nontender abdomen. Bowel sounds normoactive. Neurological - Patient is alert and oriented x4. No motor or sensory weakness laboratory and microbiology Laboratory Tests 02/04/25 12:42 02/02/25 05:56 Test 02/02/25 05:56 Range/Units Serum Glucose 74 74-106 mg/dL Microbiology Date/Time Source Procedure Growth Status 01/31/25 06:15 Nose MRSA Screen - Final Complete Problem List/Assessment/Plan Problem List/Assessment/Plan Assessment GI bleed Sliding hiatal hernia Grade B esophagitis Probable Esophageal candidiasis Gastritis 1.5 cm Transverse colon polyp 2 cm Descending colon polyp Internal hemorrhoids Plan - status post upper endoscopy with biopsy and colonoscopy with biopsy - H&H stable - continue on Protonix, Carafate - nystatin swish and swallow - biopsy results pending - tolerating soft diet, advanced as tolerated - outpatient follow up in 2-4 weeks to review biopsy results and further management - avoid NSAIDs, coffee, spicy foods - advised to increase fluid and fiber intake Plan discussed with Dr. Salinas Plan discussed with: Patient, Other (ARASH Olivier) Dietary Evaluation Review Comments: 1. [place] pt's likes, 2. encourage and monitor PO feedings to meet at least 75% of his needs. 3. Offer Nepro PO 240 supplements BID if PO intake<75% 4. REnal standad CCHO-60 diet Expected Outcomes/Goals: avoid uremia, maintain BW and prevent wt loss CC Plasma Assessment Blood Product Administration S: [id number] TRENTON FLORES RESIDENT Feb 05, 2025 16:07
--- NOTE | 2025-02-05 17:33 | DVHPN2 ---
Progress Note - Dictate Date Seen: Feb 05, 2025 Medical Necessity Reason Pt with a Central, PICC or Fol: Yes Subjective No acute issues overnight vital signs Vital Sign Date Time Temp Pulse Resp B/P (MAP) Pulse Ox O2 Delivery O2 Flow Rate FiO2 02/05/25 16:59 98.2 74 16 146/41 (76) 96 98.2 02/05/25 08:05 Room Air* 0 21 Total Intake and Output 02/04/25 02/04/25 02/05/25 15:00 23:00 07:00 Intake Total 416 ml 852 ml 100 ml Balance 416 ml 852 ml 100 ml medications Current Medications Medications Dose Ordered Sig/Caroline Route Start Time Stop Time Status Last Admin Dose Admin Atorvastatin Calcium 10 mg HS PO 01/29/25 22:00 02/04/25 21:14 10 MG Hydralazine HCl 10 mg Q6HP PRN IV 01/29/25 15:15 02/05/25 11:45 10 MG Sodium Chloride 10 ml Q8HR IV 01/29/25 22:00 02/05/25 13:03 10 ML Docusate Sodium 100 mg BIDPRN PRN PO 01/29/25 15:15 02/01/25 21:55 100 MG Acetaminophen 650 mg Q6HP PRN PO 01/29/25 15:15 02/05/25 05:29 650 MG Metoprolol Succinate 25 mg DAILY PO 02/01/25 10:00 02/05/25 08:58 25 MG Artificial Tears 1 drop Q6HP PRN EACHEYE 02/01/25 12:45 02/05/25 10:24 1 DROP Sucralfate 1 gm BID@0600,2200 PO 02/02/25 22:00 02/05/25 05:19 1 GM Nystatin 5 ml QID MT 02/02/25 18:00 02/05/25 12:06 5 ML Acetaminophen/ Hydrocodone Bitart 1 tab Q6HP PRN PO 02/04/25 12:00 02/05/25 10:23 1 TAB Acetaminophen/ Hydrocodone Bitart 1 tab Q6HP PRN PO 02/04/25 12:15 UNV Pantoprazole Sodium 40 mg BID PO 02/04/25 22:00 02/05/25 08:58 40 MG Lorazepam 1 mg BID PRN PO 02/04/25 20:30 02/05/25 08:59 1 MG Docusate Sodium 100 mg DAILY PO 02/05/25 10:00 02/05/25 08:56 100 MG Sevelamer HCl 2,400 mg TIDWM PO 02/04/25 18:00 02/05/25 11:58 2,400 MG Apixaban 2.5 mg BID PO 02/05/25 10:00 02/05/25 11:59 2.5 MG Cefepime HCl 0.5 gm/Sodium Chloride 50 ml @ 12.5 mls/hr DAILY IV 02/06/25 10:00 objective HEENT: No evidence of JVD, no oral ulcers. Pulmonary: Lungs are clear on auscultation bilaterally Cardiovascular S1-S2, no S3 or S4 Abdomen: Bowel sounds positive, soft no rebound tenderness Skin: No rash Neurological: Alert, oriented, no focal weakness laboratory and microbiology Laboratory Tests 02/04/25 12:42 02/02/25 05:56 Test 02/02/25 05:56 Range/Units Serum Glucose 74 74-106 mg/dL Problem List 1. End-stage renal disease on hemodialysis TTS 2. Hyperkalemia , resolved 3. Resolved GI bleed 4. Anemia of blood loss acute and end-stage renal disease Status post one unit PRBC 5. CHF 6. Hypertension 7. chronic back pain Assessment/Plan Plan: Continue dialysis TTS Patient takes [place] 10/325 twice a day at home Endoscopy was done Monitor H&H and transfuse as needed Continue rest of management as per primary team Javed will be given for goal hemoglobin 10-11 Patient is stable from Nephrology perspective Dietary Evaluation Review Comments: 1. [place] pt's likes, 2. encourage and monitor PO feedings to meet at least 75% of his needs. 3. Offer Nepro PO 240 supplements BID if PO intake<75% 4. REnal standad CCHO-60 diet Expected Outcomes/Goals: avoid uremia, maintain BW and prevent wt loss Plan discussed with: Other CC Plasma Assessment Blood Product Administration S: [id number] MAXI LEWIS MD Feb 05, 2025 17:33
--- NOTE | 2025-02-05 19:16 | DVH ---
PROCEDURE: MRI LUMBAR SPINE WO CONTRAST INDICATION: PAIN Exam Date: 02/05/2025 09:15 AM COMPARISON: MRI LUMBAR SPINE WO CONTRAST on DOS: 02/04/25, MRI LUMBAR SPINE WO CONTRAST on DOS: , XY LUMBAR SPINE 3 VIEW on DOS: 12/10/24 TECHNIQUE: MRI lumbar spine without intravenous contrast. FINDINGS: Evaluation is degraded by motion artifact. There is redemonstration of abnormal signal within the L3-4 interspace and across the opposing verteb ral bodies suggesting discitis/ osteomyelitis in the appropriate clinical setting. There is no acute fracture. The conus is unremarkable. Redemonstration of presumed polycystic kidneys , incompletely assessed. Level by level analysis: L1-2: The disc configuration is normal. No spinal canal or neural foraminal stenosis. L2-3: There is disc desiccation and mild facet arthropathy without significant spinal canal or neural foraminal stenosis. L3-4: Grade 1 anterolisthesis of L3 on L4 with uncovering of the disc. There is at least moderate spi nal stenosis. There is prominent facet arthropathy. There is severe right and at least moderate left neural foraminal stenosis. L4-5: There is disc desiccation and facet arthropathy without significant spinal canal or neural fora judie stenosis. L5-S1: The disc configuration is normal. No spinal canal or neural foraminal stenosis. Facet arthrosi s. IMPRESSION: 1. Findings as above again suggestive of discitis/osteomyelitis at L3-4. A contrast-enhanced evaluati on may be beneficial in further assessment as clinically indicated. 2. Degenerate changes of the lumbar spine as detailed.
[2025-02-06] MEDS ORDERED: SODIUM CHL 0.9% 1000 ML BAG XX ONE (07:00)
[2025-02-06] MEDS ORDERED: CEFEPIME 0.5 GM in SODIUM CHL 0.9% 50 ML IV SCH (10:00)
[2025-02-06] MEDS ORDERED: EPOETIN ALFA-EPBX 10,000 UNIT/1ML VIAL SC ONE (21:00)
== END 2025-02-05 22:55 | DRG 241 ==
LOC: ER 13:09 → EDBD 13:09 → OVERFLOW 16:31 → TELE-WESTW 01-30 22:38
PROVIDERS: ADMIT Nurse Practitioner Acute Care; ATTEND Nurse Practitioner Acute Care
PROC: 5A1D70Z Performance of Urinary Filtration, Intermittent, Less than 6 Hours Per Day (ICD-10-PCS; 2025-01-29)
PROC: 30233N1 Transfusion of Nonautologous Red Blood Cells into Peripheral Vein, Percutaneous Approach (ICD-10-PCS; 2025-01-30)
PROC: 5A1D70Z Performance of Urinary Filtration, Intermittent, Less than 6 Hours Per Day (ICD-10-PCS; 2025-01-31)
PROC: 5A1D70Z Performance of Urinary Filtration, Intermittent, Less than 6 Hours Per Day (ICD-10-PCS; 2025-02-01)
PROC: 0DB98ZX Excision of Duodenum, Via Natural or Artificial Opening Endoscopic, Diagnostic (ICD-10-PCS; 2025-02-02)
PROC: 0DB68ZX Excision of Stomach, Via Natural or Artificial Opening Endoscopic, Diagnostic (ICD-10-PCS; 2025-02-02)
PROC: 0DB38ZX Excision of Lower Esophagus, Via Natural or Artificial Opening Endoscopic, Diagnostic (ICD-10-PCS; 2025-02-02)
PROC: 0DBM8ZZ Excision of Descending Colon, Via Natural or Artificial Opening Endoscopic (ICD-10-PCS; principal; 2025-02-02 13:46)
PROC: 0DBL8ZZ Excision of Transverse Colon, Via Natural or Artificial Opening Endoscopic (ICD-10-PCS; 2025-02-02 13:46)
PROC: 5A1D70Z Performance of Urinary Filtration, Intermittent, Less than 6 Hours Per Day (ICD-10-PCS; 2025-02-03)
DX: K29.71 Gastritis, unspecified, with bleeding (principal); I13.2 Hypertensive heart and chronic kidney disease with heart failure and with stage 5 chronic kidney disease, or end stage renal disease; I82.C11 Acute embolism and thrombosis of right internal jugular vein; K22.11 Ulcer of esophagus with bleeding; N18.6 End stage renal disease; I82.611 Acute embolism and thrombosis of superficial veins of right upper extremity; D63.1 Anemia in chronic kidney disease; I50.9 Heart failure, unspecified; K31.3 Pylorospasm, not elsewhere classified; D62 Acute posthemorrhagic anemia; E87.5 Hyperkalemia; I25.10 Atherosclerotic heart disease of native coronary artery without angina pectoris; E78.5 Hyperlipidemia, unspecified; E11.649 Type 2 diabetes mellitus with hypoglycemia without coma; K44.9 Diaphragmatic hernia without obstruction or gangrene; F17.210 Nicotine dependence, cigarettes, uncomplicated; E11.22 Type 2 diabetes mellitus with diabetic chronic kidney disease; K63.5 Polyp of colon; K64.8 Other hemorrhoids; G89.29 Other chronic pain; K58.9 Irritable bowel syndrome, unspecified; J45.909 Unspecified asthma, uncomplicated; F41.9 Anxiety disorder, unspecified; Z99.2 Dependence on renal dialysis; Z83.3 Family history of diabetes mellitus; Z82.49 Family history of ischemic heart disease and other diseases of the circulatory system; Z95.5 Presence of coronary angioplasty implant and graft; Z95.1 Presence of aortocoronary bypass graft; M46.40 Discitis, unspecified, site unspecified
CPT/HCPCS: 36415; 36430; 72148; 80048; 80053; 82140; 82270; 82728; 82962; 83540; 83550; 83735; 84132; 85014; 85018; 85025; 85610; 85730; 86850; 86900; 86901; 86920; 87081; 87340; 90935; 93971; 99291; G0378; J1100; J1815; J2003; J2405; J2470; J2704; J3490

== ENCOUNTER 2025-03-02 23:13 | Emergency (ER) | payer MEDICAID ==
[~2025-03-02] VITALS: Ht 162.6 cm; Wt 69.9 kg
[~2025-03-02 23:13] MED LIST changes: -ERGO1CAP23 PO; -HYDR-5052 PO; -LORA-1121 PO; -SEVE800T8 PO; -TRAZ-181 PO; -TRAZ1TAB12 PO; -[UNRECOGNIZED DRUG - CODE] PO
[2025-03-02 23:16] VITALS: BP 184/104; PULSE 80; RESP 20; TEMP 98; O2SAT 94
--- NOTE | 2025-03-03 02:22 | DVH ---
CLINICAL INDICATION: FALL TECHNIQUE: 3 views XY R WRIST 2 VIEW XRAY Comparison: None FINDINGS: Large [id number] limits assessment. No evidence of acute fracture or dislocation. No significant degenerative change. Normal osseous mineralization. No focal soft tissue swelling. Dense peripheral atherosclerosis. IMPRESSION: 1. No acute osseous abnormality of the right wrist.
--- NOTE | 2025-03-03 02:25 | DVH ---
CLINICAL INDICATION: FALL TECHNIQUE: 3 views XY R SHOULDER 2+ VIEW XRAY Comparison: XY R SHOULDER 2+ VIEW XRAY on DOS: 07/28/23 FINDINGS: No acute fracture or dislocation. Evidence of remote distal clavicle resection. Mild glenohumeral osteoarthrosis, and eburnation of the greater tuberosity. No appreciable soft tissue swelling. Partially imaged cardiac device. IMPRESSION: 1. No acute osseous abnormality of the right shoulder.
--- NOTE | 2025-03-03 02:26 | DVH ---
EXAMINATION: XY R RIB XRAY INDICATION: FALL COMPARISON: None TECHNIQUE: 5 views FINDINGS: No evidence of rib or other acute fracture. Left midlung and right basilar opacities most consistent with scarring/atelectasis. No evidence of focal consolidation or pleural abnormality. Normal heart size. Left implanted biventricular cardiac device with expected lead positioning. Left subclavian stent. IMPRESSION: 1. No displaced rib fracture. 2. No acute cardiopulmonary abnormality.
[2025-03-03] MEDS: ACETAMINOPHEN 325 MG TAB PO ONE (02:40)
--- NOTE | 2025-03-03 02:51 | DVH ---
MEDICAL RECORDS NUMBER: [id number] PROCEDURE: CT MAXILLOFACIAL WITHOUT Date: 03/03/2025 01:58 AM HISTORY: FALL TECHNIQUE: CT of the face is performed without intravenous contrast. Sagittal and coronal reconstruction images are provided. CONTRAST: None COMPARISON: None RADIATION DOSE INFORMATION: Automated exposure control dose reduction techniques were used. FINDINGS: No fracture is seen.. The mandible is intact. The orbits and retrobulbar structures appear unremarkable. The paranasal sinuses are clear. No fluid is seen in the mastoid air cells. IMPRESSION: 1. Unremarkable CT of the face.
== END 2025-03-03 03:06 | disposition left against medical advice (07) ==
LOC: ER 23:13
DX: S49.91XA Unspecified injury of right shoulder and upper arm, initial encounter (principal); Z53.21 Procedure and treatment not carried out due to patient leaving prior to being seen by health care provider; Z79.899 Other long term (current) drug therapy; W18.39XA Other fall on same level, initial encounter; Y93.89 Activity, other specified; Y92.89 Other specified places as the place of occurrence of the external cause; Y99.8 Other external cause status
CPT/HCPCS: 70486; 71101; 73030; 73100; 82947; 82962

== ENCOUNTER 2025-03-03 08:53 | Inpatient (IN) | payer MEDICAID, MEDICARE ==
[~2025-03-03] VITALS: Ht 172.7 cm; Wt 68.5 kg
--- NOTE | 2025-03-03 11:30 | ED.PDOC ---
History of Present Illness HPI Comments 55-year-old male presents to the ER with a prior medical history of anxiety, asthma, CAD, CHF, depression, diabetes, high lipids, hypertension, [place], ESRD, DVT RUE: Surgical history with a pacemaker, PTCA and the chief complaint of a fall. Patient reports on falling two days ago and states that when he breathes in he has bright rib pain as well as having posterior head pain. Patient reports he was walking and thinks he passed out. He woke up on the ground unconscious. Patient notes on coming to the ER last night and was told by nurses to go to his dialysis Center and come back for which he did patient currently has a blurry vision as well. Denies any other symptoms at this time. Denies chills, fever, N/V/D, SOB, CP. No other associated symptoms, modifiers, recent injuries or sick contacts present at this time. Chief Complaint: Fall Injury Time Seen by MD: 11:00 Primary Care Provider: NO CURRENT PRIMARY Reviewed Notes: Nurses Notes, Medications, Allergies Allergies: Coded Allergies: No Known Drug Allergy (Verified Allergy, Unknown, 01/14/25) pt couldn't recall a name of an "antibiotic for pneumonia that caused him itching"' Home Meds Active Scripts Apixaban Base (ELIQUIS) 5 Mg Tab, 5 MG PO BID for 90 Days, #180 TAB Prov:BUSTER BORREGO RESIDENT 01/12/25 Ticagrelor Base (Brilinta) 60 Mg Tab, 60 MG PO BID for 30 Days, #60 TAB Prov:BLAIR SAGE RESIDENT 12/05/24 Nifedipine (Nifedipine Er) 90 Mg Tab, 1 TAB PO DAILY for 30 Days, #30 TAB 5 Refills Prov:BLAIR SAGE RESIDENT 12/05/24 Metoprolol Succinate (Metoprolol Succinate Er) 50 Mg Tab, 1 TAB PO DAILY for 30 Days, #30 TAB 5 Refills Prov:BLAIR SAGE RESIDENT 12/05/24 Insulin Lispro (Insulin Lispro) 100 Unit/Ml Inj, 100 UNIT IJ TID for 30 Days, #3 INJ 2-3 units subcutaneous t.i.d.. Always check your blood glucose before administering insulin, If blood sugar < 60 - have 15-20 g of glucose (8 oz cranberry juice, orange juice, apple juice, small carton of milk) go to the ER/call 911 Prov:BLAIR SAGE [facility] 12/05/24 Insulin Glargine (Lantus Solostar) 100 Unit/Ml Inj, 100 UNIT SC QPM for 30 Days, #3 INJ 15 units in the evening. Always check your blood glucose before administering insulin, If blood sugar < 60 - have 15-20 g of glucose (8 oz cranberry juice, orange juice, apple juice, small carton of milk) go to the ER/call 911 Prov:BLAIR SAGE [facility] 12/05/24 Folic Acid-Vitamin B6-Vitamin (B Complex/Folic Acid) Tab, 1 CAP OR DAILY for 30 Days, #30 TAB Prov:BLAIR ASGE [facility] 12/05/24 Atorvastatin Calcium (ATORVASTATIN CALCIUM) 40 Mg Tab, 1 TAB PO DAILY for 30 Days, #30 TAB 5 Refills Prov:BLAIR SAGE [facility] 12/05/24 Albuterol Sulfate (Albuterol Sulfate) 0.083 % Neb, 1 VIAL NEB Q4HPRN PRN for 30 Days, #50 VIAL Prov:BLAIR SAGE [facility] 12/05/24 Diphenhydramine-Zinc Acetate (Benadryl Cream) 1 Applic Ap, 1 APPLIC TOP Q6HPRN PRN for 30 Days, #120 APPLIC Prov:DAVISALANA RESIDENT 07/30/23 Acetaminophen (Acetaminophen) 325 Mg Tab, 650 MG PO Q6HP PRN for 30 Days, #240 TAB Prov:DAVISALANA RESIDENT 07/30/23 Reported Medications Lorazepam (Lorazepam) 1 Mg Tab, 1 TAB PO BIDPRN PRN for ANXIETY for 30 Days, #60 01/30/25 Trazodone Hcl (Trazodone Hcl) 100 Mg Tab, 1 TAB PO DAILY for 30 Days, #30 01/30/25 Sevelamer Carbonate (Sevelamer Carbonate) 800 Mg Tab, 4 TAB PO TID for 90 Days, #1080 01/30/25 Hydralazine Hcl (Hydralazine Hcl) 100 Mg Tab, 1 TAB PO TID for 30 Days, #90 01/30/25 Amlodipine Besylate (Amlodipine Besylate) 10 Mg Tab, 1 TAB PO DAILY for 30 Days, #30 01/30/25 Carvedilol (Carvedilol) 12.5 Mg Tab, 1 TAB PO BID for 30 Days, #60 01/30/25 Hydrocodone-Acetaminophen (Hydrocodone Bitartrate/AC 10-325 mg) 1 Tab Tab, 1 TAB PO QID, TAB 08/01/24 Patients Own Medication (PATIENTS OWN MEDICATION) ., 1 PATCH TD DAILY PTS OWN MED-OBTAIN FROM PT AND SEND TO RX DRUG: FREQ: RX# EXP: DATE DISP: TECH: [facility]: 10/16/23 Information Source: Patient Mode of Arrival: Ambulatory Severity: Moderate Timing: Hours Duration: Since onset, Hours Prehospital treatment: None Past Medical History PAST MEDICAL HISTORY: Anxiety, Asthma, CAD, CHF, Depression, DM, ESRD, High Lipids, HTN, [place] Past Medical History (Other): DVT to the RUE Surgical History: Pacemaker, PTCA Family History Family History: Reviewed,noncontributory to illness, Unknown Social History Smoker: Unknown Alcohol: Unknown Drugs: Unknown Lives In: Home Constitutional: denies: chills, diaphoresis, fatigue, fever, malaise, sweats, weakness, others EENTM: reports: blurred vision; denies: double vision, ear bleeding, ear discharge, ear drainage, ear pain, ear ringing, eye pain, eye redness, hearing loss, mouth pain, mouth swelling, nasal discharge, nose bleeding, nose congestion, nose pain, photophobia, tearing, throat pain, throat swelling, voice changes, others Respiratory: denies: cough, hemoptysis, orthopnea, SOB at rest, shortness of breath, SOB with excertion, stridor, wheezing, others Cardiovascular: denies: chest pain, dizzy spells, diaphoresis, Dyspnea on exer tion, edema, irregular heart beat, left arm pain, lightheadedness, palpitations, PND, syncope, others Gastrointestinal: denies: abdomen distended, abdominal pain, blood streaked bowels, constipated, diarrhea, dysphagia, difficulty swallowing, hematemesis, melena, nausea, poor appetite, poor fluid intake, rectal bleeding, rectal pain, vomiting, others Genitourinary: denies: burning, dysuria, flank pain, frequency, hematuria, incontinence, penile discharge, penile sore, pain, testicle pain, testicle swelling, urgency, others Neurological: denies: dizziness, fainting, headache, left sided numbness, left sided weakness, numbness, paresthesia, pre-existing deficit, right sided numbness, right sided weakness, seizure, speech problems, tingling, tremors, weakness, others Musculoskeletal: reports: others (Right chest wall tenderness, posterior region of the head); denies: back pain, gout, joint pain, joint swelling, muscle pain, muscle stiffness, neck pain Integumetry: denies: bruises, change in color, change in hair/nails, dryness, laceration, lesions, lumps, rash, wounds, others Allergic/Immunocompromised: denies: Difficulty Healing, Frequent Infections, Hives, Itching, others Hematologic/Lymphatic: denies: anemia, blood clots, easy bleeding, easy bruising, swollen glands, others Endocrine: denies: excessive hunger, excessive sweating, excessive thirst, excessive urination, flushing, intolerance to cold, intolerance to heat, unexplained weight gain, unexplained weight loss, others Psychiatric: denies: anxiety, bipolar disorder, depression, hopeless, panic disorder, schizophrenia, sleepless, suicidal, others All Other Systems: Reviewed and Negative Physical Exam Exam Comments Left AV fibula, right chest wall tenderness General Appearance: No Apparent Distress, Normal HEENT: Normal ENT Inspection, Pharynx Normal, TMs Normal Neck: Full Range of Motion, Non-Tender, Normal, Normal Inspection Respiratory: Chest Non-Tender, Lungs Clear, No Accessory Muscle Use, No Respiratory Distress, Normal Breath Sounds Cardiovascular: No Edema, No JVD, No Murmur, No Gallop, Normal Peripheral Pulses, Regular Rate/Rhythm Breast Exam: Deferred Gastrointestinal: No Organomegaly, Non Tender, No Pulsatile Mass, Normal Bowel Sounds, Soft Genitalia: Deferred Pelvic: Deferred Rectal: Deferred Extremities: No calf tenderness, Normal capillary refill, Normal inspection, Normal range of motion, Non-tender, No pedal edema Musculoskeletal : Apperance: Normal Neurologic: Alert, vacuum applicator operator II-XII nml as Tested, No Motor Deficits, Normal Affect, Normal Mood, No Sensory Deficits Cerebellar Function: Normal Reflexes: Normal Skin: Dry, Normal Color, Warm Lymphatic: No Adenopathy Was a procedure done? Was a procedure done?: No Differential Dx Considerations may include: see mdm X-Ray, Labs, Meds, VS Vital Signs Date Time Temp Pulse Resp B/P (MAP) Pulse Ox O2 Delivery O2 Flow Rate FiO2 03/03/25 08:56 98.4 84 18 135/67 98 98.4 Time of 1ST Reevaluation: 11:30 Reevaluation 1ST: Unchanged Patient Education/Counseling: Diagnosis, Treatment, Prognosis Family Education/Counseling: No Family Present SEPSIS Sepsis Screen Date sepsis recognized/suspect: Mar 03, 2025 Time Sepsis recognized/suspect: 0858 Recent Procedure: No On Antibiotic Therapy: No Respiratory Rate >20: No Heart Rate >90: No Temp<36 C (96.8 F) or >38.3 C: No SBP <90 or MAP <65 mmHG: No New Acute Mental Status Change: No Is the patient on CPAP, BIPAP,: No Vital Signs Date Time Temp Pulse Resp B/P (MAP) Pulse Ox O2 Delivery O2 Flow Rate FiO2 03/03/25 08:56 98.4 84 18 135/67 98 98.4 Departure 1 Departure Time of Disposition: 11:38 (MEDICAL DECISION MAKING (HIGH COMPLEXITY 59174):The patient with a significant past medical history including hypertension, hyperlipidemia, type 2 diabetes, coronary artery disease, chronic systolic heart failure, ESRD on hemodialysis, and a pacemaker presents with a syncopal episode followed by severe rib pain. Given this extensive comorbidity profile, his presentation represents a potentially life-threatening condition requiring high-level consideration and management.Data Reviewed / Independent Interpretation:All diagnostic studiesincluding CBC, BMP, EKG, and chest X- raywere performed in our Emergency Department today, prior to the patient leaving briefly for his scheduled dialysis session. Upon his return, I independently reviewed and interpreted all results.CBC and BMP were benign, without evidence of severe anemia, leukocytosis, electrolyte instability, or other acute metabolic derangements. EKG showed paced rhythm without acute ischemic changes or dysrhythmia. I independently reviewed the chest X-ray, which showed no acute cardiopulmonary process, including no pneumothorax, rib fracture, pneumonia, or effusion.Despite the normal results, the combination of syncope, rib pain, and the patients complex cardiovascular and renal history requires ongoing high-risk evaluation.Assessment, Differential & Management:The differential diagnosis remains broad and includes arrhythmia (including pacemaker malfunction), orthostatic syncope, dialysis-associated hypotension or electrolyte shifts, occult traumatic injury, cardiac ischemia, pulmonary embolism, and metabolic encephalopathy related to ESRD.Syncope in a patient with CAD, CHF, and a pacemakerparticularly in a post-dialysis stateremains high- risk even with normal initial studies. Dialysis may lead to significant volume shifts or metabolic changes that precipitated his event. Continued rib pain raises concern for possible occult fracture or contusion despite benign imaging.The patient requires telemetry monitoring, trending laboratory studies after dialysis, formal pacemaker interrogation, monitoring for recurrent syncope, and further cardiac evaluation. Pain control is being managed while monitoring for any respiratory or hemodynamic changes.Risk / Disposition:Due to the patients high-risk comorbidity profile, unexplained syncope, and need for continued monitoring, I have determined that inpatient admission is medically necessary for further evaluation and management. The admitting service has been contacted and accepts the patient for admission. The patient is agreeable to the plan.This encounter involves a high-risk presenting problem, high data complexity, and high risk of morbidity, meeting criteria for Level 5 medical decision making.) Impression: Primary Impression: Syncope and collapse Additional Impression: Chest wall pain Disposition: ADMITTED INPATIENT Admit to: Tele Condition: Guarded Critical Care Note Critical Care Time?: No Stability Stability form required: No I personally scribed for JOEL ALVAREZ MD ([email or web address]) on 03/03/25 at 11:30. Electronically submitted by Martínez Salvador ([email or web address]). JOEL ALVAREZ MD Mar 03, 2025 11:30
--- NOTE | 2025-03-03 11:50 | DVHHP2 ---
Admitting Diagnosis: Mechanical fall History of Present Illness 55-year-old male presents to the ER with a prior medical history of anxiety, asthma, CAD, CHF, depression, diabetes, high lipids, hypertension, [place], ESRD, DVT RUE: Surgical history with a pacemaker, PTCA and the chief complaint of a fall. Patient reports on falling two days ago and states that when he breathes in he has bright rib pain as well as having posterior head pain. Patient reports he was walking and fell in the backyard due to unsteady ground from the [place] rocks. Patient notes on coming to the ER last night and was told by nurses to go to his dialysis Center and come back for which he did patient currently has a blurry vision as well. Denies any other symptoms at this time. Denies chills, fever, N/V/D, SOB, CP. No other associated symptoms, modifiers, recent injuries or sick contacts present at this time. PAST MEDICAL HISTORY: Anxiety, Asthma, CAD, CHF, Depression, DM, ESRD, High Lipids, HTN, [place] Past Medical History (Other): DVT to the RUE Surgical History: Pacemaker, PTCA Family History Family History: Reviewed,noncontributory to illness, Unknown Social History Smoker: Unknown Alcohol: Unknown Drugs: Unknown Lives In: Home Patient Family History: Arthritis G8 MOTHER Diabetes mellitus G8 MOTHER G8 SISTER Hypertension G8 MOTHER G8 FATHER Allergies: Coded Allergies: No Known Drug Allergy (Verified Allergy, Unknown, 01/14/25) pt couldn't recall a name of an "antibiotic for pneumonia that caused him itching"' Home Meds Active Scripts Apixaban Base (ELIQUIS) 5 Mg Tab, 5 MG PO BID for 90 Days, #180 TAB Prov:BUSTER BORREGO RESIDENT 01/12/25 Ticagrelor Base (Brilinta) 60 Mg Tab, 60 MG PO BID for 30 Days, #60 TAB Prov:BLAIR SAGE RESIDENT 12/05/24 Nifedipine (Nifedipine Er) 90 Mg Tab, 1 TAB PO DAILY for 30 Days, #30 TAB 5 Refills Prov:BLAIR SAGE RESIDENT 12/05/24 Metoprolol Succinate (Metoprolol Succinate Er) 50 Mg Tab, 1 TAB PO DAILY for 30 Days, #30 TAB 5 Refills Prov:BLAIR SAGE RESIDENT 12/05/24 Insulin Lispro (Insulin Lispro) 100 Unit/Ml Inj, 100 UNIT IJ TID for 30 Days, #3 INJ 2-3 units subcutaneous t.i.d.. Always check your blood glucose before administering insulin, If blood sugar < 60 - have 15-20 g of glucose (8 oz cranberry juice, orange juice, apple juice, small carton of milk) go to the ER/call 911 Prov:BLAIR SAGE RESIDENT 12/05/24 Insulin Glargine (Lantus Solostar) 100 Unit/Ml Inj, 100 UNIT SC QPM for 30 Days, #3 INJ 15 units in the evening. Always check your blood glucose before administering insulin, If blood sugar < 60 - have 15-20 g of glucose (8 oz cranberry juice, orange juice, apple juice, small carton of milk) go to the ER/call 911 Prov:BLAIR SAGE [facility] 12/05/24 Folic Acid-Vitamin B6-Vitamin (B Complex/Folic Acid) Tab, 1 CAP OR DAILY for 30 Days, #30 TAB Prov:BLAIR SAGE [facility] 12/05/24 Atorvastatin Calcium (ATORVASTATIN CALCIUM) 40 Mg Tab, 1 TAB PO DAILY for 30 Days, #30 TAB 5 Refills Prov:BLAIR SAGE [facility] 12/05/24 Albuterol Sulfate (Albuterol Sulfate) 0.083 % Neb, 1 VIAL NEB Q4HPRN PRN for 30 Days, #50 VIAL Prov:BLAIR SAGE [facility] 12/05/24 Diphenhydramine-Zinc Acetate (Benadryl Cream) 1 Applic Ap, 1 APPLIC TOP Q6HPRN PRN for 30 Days, #120 APPLIC Prov:ALANA CANNON RESIDENT 07/30/23 Acetaminophen (Acetaminophen) 325 Mg Tab, 650 MG PO Q6HP PRN for 30 Days, #240 TAB Prov:ALANA CANNON RESIDENT 07/30/23 Reported Medications Lorazepam (Lorazepam) 1 Mg Tab, 1 TAB PO BIDPRN PRN for ANXIETY for 30 Days, #60 01/30/25 Trazodone Hcl (Trazodone Hcl) 100 Mg Tab, 1 TAB PO DAILY for 30 Days, #30 01/30/25 Sevelamer Carbonate (Sevelamer Carbonate) 800 Mg Tab, 4 TAB PO TID for 90 Days, #1080 01/30/25 Hydralazine Hcl (Hydralazine Hcl) 100 Mg Tab, 1 TAB PO TID for 30 Days, #90 01/30/25 Amlodipine Besylate (Amlodipine Besylate) 10 Mg Tab, 1 TAB PO DAILY for 30 Days, #30 01/30/25 Carvedilol (Carvedilol) 12.5 Mg Tab, 1 TAB PO BID for 30 Days, #60 01/30/25 Hydrocodone-Acetaminophen (Hydrocodone Bitartrate/AC 10-325 mg) 1 Tab Tab, 1 TAB PO QID, TAB 08/01/24 Patients Own Medication (PATIENTS OWN MEDICATION) ., 1 PATCH TD DAILY PTS OWN MED-OBTAIN FROM PT AND SEND TO RX DRUG: FREQ: RX# EXP: DATE DISP: TECH: [facility]: 10/16/23 Current Medications Current Medications Medications (Trade) Dose Ordered Sig/Caroline Route PRN Reason Start Time Stop Time Status Last Admin Sodium Chloride (Saline Lock Ns) 10 ml Q8HR IV 03/03/25 14:00 Docusate Sodium (Colace Capsule) 100 mg BIDPRN PRN PO FOR CONSTIPATION 03/03/25 12:00 Acetaminophen (Tylenol Tablet) 650 mg Q6HP PRN PO PAIN SCALE 1-3 OR TEMP>100.4 03/03/25 12:00 Acetaminophen/ Hydrocodone Bitart ([place] 5/325MG Tab) 1 tab Q4HP PRN PO MODERATE PAIN (4-6 PAIN SCALE) 03/03/25 12:00 Hydromorphone HCl (Dilaudid Injection) 0.5 mg Q4HP PRN IV SEVERE PAIN (7-10 PAIN SCALE) 03/03/25 12:00 Ondansetron HCl (Zofran) 4 mg Q4HP PRN IV NAUSEA / VOMITING 03/03/25 12:00 Acetaminophen (Tylenol Tablet) 650 mg Q6HP PRN PO pain and fever 03/03/25 12:00 UNV Apixaban (Eliquis) 5 mg BID PO 03/03/25 22:00 UNV Carvedilol (Coreg Tablet) 12.5 mg BID PO 03/03/25 22:00 UNV Metoprolol Succinate (Toprol Xl) 50 mg DAILY PO 03/04/25 10:00 UNV Ticagrelor (Brilinta) 60 mg BID PO 03/03/25 22:00 UNV Patient Own Medication 1 tab DAILY PO 03/04/25 10:00 UNV Patient Own Medication 1 tab DAILY PO 03/04/25 10:00 UNV Patient Own Medication 1 cap DAILY OR 03/04/25 10:00 UNV Patient Own Medication 1 tab TID PO 03/03/25 14:00 UNV Patient Own Medication 1 tab DAILY PO 03/04/25 10:00 UNV Patient Own Medication 4 tab TID PO 03/03/25 14:00 UNV Diagnostic Test (Pha) (Accu-Chek Comfort Curve T) 1 strip ACHS 03/03/25 17:00 Insulin Human Regular (InsuLIN R) ACHS SC 03/03/25 17:00 Dextrose 50 ml UD PRN IV Blood Sugar LESS THAN 60 03/03/25 12:00 Insulin Glargine (Lantus) 20 units HS SC 03/03/25 22:00 Vital Signs Vital Signs Date Time Temp Pulse Resp B/P (MAP) Pulse Ox O2 Delivery O2 Flow Rate FiO2 03/03/25 08:56 98.4 84 18 135/67 98 98.4 Physical Exam Generally 75 years old male well nourished well developed. No apparent distress HEENT-atraumatic Heart-regular rate and rhythm Lungs clear to auscultate Abdomen soft nontender nondistended. AV fistula positive for palpable thrill Musculoskeletal-no edema cyanosis Neuro-AO three no focal deficit SEPSIS Sepsis Screen Date sepsis recognized/suspect: Mar 03, 2025 Time Sepsis recognized/suspect: 0858 Recent Procedure: No On Antibiotic Therapy: No Respiratory Rate >20: No Heart Rate >90: No Temp<36 C (96.8 F) or >38.3 C: No SBP <90 or MAP <65 mmHG: No New Acute Mental Status Change: No Is the patient on CPAP, BIPAP,: No Physician Orders Basic Metabolic Panel (03/03/25 11:39) Complete Blood Count (03/03/25 11:39) Prothrombin Time W/ Inr (03/03/25 11:48) Admit (03/03/25 11:51) Code Status (03/03/25 11:51) Vital Signs .PER UNIT PROTOCOL (03/03/25 11:51) Review Orders With Adm.Md (03/03/25 11:51) Encourage Activity As Tolerate (03/03/25 11:51) Regular Diet (03/03/25 Lunch) Sodium Chloride Lock (Saline Lock Ns) (03/03/25 14:00) Docusate Sodium Capsule (Colace Capsule) (03/03/25 12:00) Acetaminophen Tablet (Tylenol Tablet) (03/03/25 12:00) Notify Of Changes From Base (03/03/25 11:51) Advance Directive (03/03/25 11:51) Patient Condition (03/03/25 11:51) Allergies (03/03/25 11:51) Hydrocodone-Acet 5/325mg Tab ([place]land 5/32 (03/03/25 12:00) Hydromorphone Injection (Dilaudid Inject (03/03/25 12:00) Ondansetron Hcl (Zofran) (03/03/25 12:00) *Dr. Jadon Longoria [facility] (03/03/25 11:51) Acetaminophen Tablet (Tylenol Tablet) (03/03/25 12:00) Apixaban (Eliquis) (03/03/25 22:00) Carvedilol Tablet (Coreg Tablet) (03/03/25 22:00) Metoprolol Xl Succinate (Toprol Xl) (03/04/25 10:00) Ticagrelor (Brilinta) (03/03/25 22:00) (Nf) Amlodipine Besylate (03/04/25 10:00) (Nf) Atorvastatin Calcium (03/04/25 10:00) (Nf) Folic Acid-Vitamin B6-Vitamin (B Co (03/04/25 10:00) (Nf) Hydralazine Hcl (03/03/25 14:00) (Nf) Nifedipine (Nifedipine Er) (03/04/25 10:00) (Nf) Sevelamer Carbonate (03/03/25 14:00) Glucose Blood (Accu-Chek Comfort Curve T (03/03/25 17:00) Insulin R (Human) (Insulin R) (03/03/25 17:00) Dextrose 50% Syringe (03/03/25 12:00) Insulin Lantus (Glargine) (Lantus) (03/03/25 22:00) Vital Signs Date Time Temp Pulse Resp B/P (MAP) Pulse Ox O2 Delivery O2 Flow Rate FiO2 11/15/25 08:56 98.4 84 18 135/67 98 98.4 Laboratory Tests Test 03/03/25 11:48 White Blood Count Pending Results Labs Test 03/03/25 11:48 Range/Units Primary Diagnosis Syncope Fall Plan Right wrist negative for fracture, x-ray right shoulder, x-ray rate and rhythm negative for fracture CT maxilliofacial negative for facial fracture Check CT head for negative intracranial hemorrhage MR brain rule out acute intrarenal hemorrhage Cardiac Doppler rule out carotid stenosis Right upper extremity ultrasound to rule out DVT. Patient states he does not recall if he took Eliquis Check orthostatic vital Check echo of the heart Nephrology consult to continue hemodialysis Neuro check per floor protocol Renal Resume home meds Full code Eliquis for DVT prophylaxis No GI prophylaxis needed Plan discussed with: Patient Problems List: (1) Accident due to mechanical fall without injury (2) End-stage renal disease needing dialysis Date of Service: Mar 03, 2025 Billing Provider: CLAUDIA JOYA MD Common Visit Codes: [id number] INP/OBS CARE (HIGH) CLAUDIA JOYA MD Mar 03, 2025 11:50
[2025-03-03] MEDS ORDERED: ONDANSETRON HCL 4 MG/2 ML VIAL IV PRN (12:00)
[2025-03-03] MEDS ORDERED: ACETAMINOPHEN 325 MG TAB PO PRN (12:00)
[2025-03-03] MEDS ORDERED: DEXTROSE (50%) 50ML SYRG IV PRN (12:00)
[2025-03-03 12:12] LABS: Potassium 4.1 mmol/L (3.5-5.1); Sodium 136 mmol/L (136-145)
[2025-03-03 12:13] LABS: Anion Gap 9 (5-15); Calcium 10.1 mg/dL (8.7-10.4); Carbon Dioxide 32 mmol/L (20-31); Chloride 95 mmol/L (98-107)
[2025-03-03 12:14] LABS: Hematocrit 27.4 % (41.0-53.0); Hemoglobin 9.0 g/dL (13.5-17.5); Mean Corpuscular Hemoglobin 30.8 pg (28.0-32.0); Mean Corpuscular Volume 94.0 fL (80.0-100.0); Nucleated Red Blood Cells % 0.0 %
[2025-03-03 12:18] LABS: BUN/Creatinine Ratio 5.3 (10.0-20.0)
[2025-03-03 12:22] LABS: Blood Urea Nitrogen 25 mg/dL (9-23); Glucose 166 mg/dL (74-106)
[2025-03-03 12:36] LABS: INR 1.03 (0.9-1.15); Prothrombin Time 10.9 sec (9.3-11.8)
[2025-03-03] MEDS: ONDANSETRON HCL 4 MG/2 ML VIAL IV ONE (12:45)
[2025-03-03] MEDS: SODIUM CHLOR 0.9% PF (SALINE LOCK) 10ML VIAL/SYR IV SCH (12:46)
[2025-03-03] MEDS: MORPHINE SULFATE 4 MG/ML SYR/VIAL IV ONE (12:46)
--- NOTE | 2025-03-03 12:51 | DVH ---
CT STROKE CTH INDICATION: Weakness COMPARISON: CT HEAD WITHOUT CONTRAST on DOS: 07/28/23, BRAIN HEAD WO CONTRAST on DOS: 10/30/21, HEAD WITHOUT CONTRAST on DOS: 10/29/21 TECHNIQUE: CT of the head without intravenous contrast. RADIATION DOSE: CTDIvol: 65.19 mGy, DLP: 1262.4 mGy*cm FINDINGS: There is no evidence of acute intracranial hemorrhage, extra-axial collection, mass effect, midline shift, herniation or hydrocephalus. The ventricles, sulci and cisterns are age appropriate. The agee-white differentiation is intact. There are old lacunar infarcts in bilateral basal ganglia and internal capsules. The visualized paranasal sinuses and mastoid air cells are clear. The surrounding soft tissues and osseous structures are unremarkable. IMPRESSION: No evidence of acute intracranial hemorrhage, mass effect or hydrocephalus. Old lacunar infarcts in bilateral basal ganglia and internal capsules.
--- NOTE | 2025-03-03 13:25 | DVH ---
RIGHT Upper Extremity Venous Duplex Clinical History: pain r/o dvt Comparison: US RT UPPER DVT on DOS: 02/03/25, US RT UPPER DVT on DOS: 01/22/25, US BILAT LOWER DVT on DOS: 01/12/25, US RT UPPER DVT on DOS: 01/09/25, US LT UPPER DVT on DOS: 10/15/23 Technique: Duplex Doppler evaluation of the venous system of the RIGHT lower neck and upper extremity including color Doppler and spectral/pulsed waveform analysis was performed. Findings: The internal jugular vein demonstrates occlusive thrombus. The subclavian vein is patent on color Doppler evaluation without intraluminal thrombus and demonstrates waveform variability. The visualized portion of the brachiocephalic vein is patent on color Doppler evaluation without intraluminal thrombus and demonstrates waveform variability. The axillary vein demonstrates appropriate compressibility and waveform variability. The brachial veins demonstrate appropriate compressibility and patency on Doppler evaluation. The basilic vein demonstrates appropriate compressibility and patency on Doppler evaluation. The cephalic vein demonstrates appropriate compressibility and patency on Doppler evaluation. Impression: Occlusive thrombus in the right internal jugular vein. Dr. López notified of results at 1315 on 03/03/2025
[2025-03-03] MEDS: PYRIDOXINE HCL 50 MG TAB PO SCH (15:42)
[2025-03-03] MEDS: FOLIC ACID 1 MG TAB PO SCH (15:42)
[2025-03-03] MEDS: HYDROcodone-ACET 5/325MG TAB PO PRN (15:46)
[2025-03-03] MEDS: ACCU-CHEK COMFORT CURVE STRIP VI SCH (17:15)
[2025-03-03] MEDS: InsuLIN REG 1unit/0.01ml Soln (100units/ml) SC SCH (17:35)
[2025-03-03] MEDS: SEVELAMER 800 MG TAB PO SCH (18:00)
[2025-03-03 19:46] VITALS: O2SAT 97
[2025-03-03 20:00] VITALS: BP 133/65; PULSE 72; PULSE 81; RESP 16; TEMP 97.9; O2SAT 95
[2025-03-03] MEDS: HYDROmorphone HCL 2 MG/ML VL/or syr IV PRN (20:42)
[2025-03-03 21:00] VITALS: BP_SYST 119; BP_SYST 132; BP_DIAS 69; BP_DIAS 88; PULSE 74; PULSE 76; RESP 16; RESP 17; TEMP 97.8; TEMP 98.4; O2SAT 97; O2SAT 98
[2025-03-03] MEDS ORDERED: CARVEDILOL 12.5 MG TAB PO SCH (22:00)
[2025-03-03] MEDS ORDERED: INSULIN LANTUS (GLARGINE) 1 /0.01ml (100units/ml) SC SCH (22:00)
[2025-03-03] MEDS: TICAGRELOR 60 MG TAB PO SCH (22:01)
[2025-03-03] MEDS: APIXABAN 5 MG TAB PO SCH (22:01)
[2025-03-03] MEDS: DOCUSATE SOD 100 MG CAP PO PRN (22:01)
[2025-03-03] MEDS: ATORVASTATIN 20 MG TAB PO SCH (22:01)
[2025-03-03] MEDS: INSULIN LANTUS (GLARGINE) 1 /0.01ml (100units/ml) SC SCH (22:45)
[2025-03-04] VITALS (7 sets, daily range): BP systolic 103–157; BP diastolic 59–75; PULSE 67–83; RESP 17–19; TEMP 97.2–98.4; O2SAT 94–98
[2025-03-04 06:48] LABS: Hematocrit 27.1 % (41.0-53.0); Hemoglobin 9.0 g/dL (13.5-17.5); Mean Corpuscular Hemoglobin 31.2 pg (28.0-32.0); Mean Corpuscular Volume 93.8 fL (80.0-100.0); Nucleated Red Blood Cells % 0.1 %
[2025-03-04 07:02] LABS: Alanine Aminotransferase 10 U/L (7-40); Albumin 4.0 g/dL (3.2-4.8); Anion Gap 14 (5-15); BUN/Creatinine Ratio 7.3 (10.0-20.0); Calcium 10.3 mg/dL (8.7-10.4); Carbon Dioxide 26 mmol/L (20-31); Sodium 136 mmol/L (136-145); Total Protein 7.5 g/dL (5.7-8.2)
[2025-03-04 07:12] LABS: Alkaline Phosphatase 156 U/L (46-116); Bilirubin, Total 0.2 mg/dL (0.2-1.0); Blood Urea Nitrogen 45 mg/dL (9-23); Chloride 96 mmol/L (98-107); Potassium 5.2 mmol/L (3.5-5.1)
[2025-03-04 07:20] LABS: Glucose 46 mg/dL (74-106)
[2025-03-04] MEDS: METOPROLOL SUCCINATE XL 50 MG TAB PO SCH (08:22)
[2025-03-04] MEDS: SODIUM ZIRCONIUM CYCL 10 GM PAK PO ONE (11:25)
--- NOTE | 2025-03-04 13:02 | DVHPN2 ---
Subjective Seen in bed with no neurological problems Reviewed: H&P Changes from previous H/P or p: No Changes Objective Vitals Vital Signs Date Time Temp Pulse Resp B/P (MAP) Pulse Ox O2 Delivery O2 Flow Rate FiO2 03/04/25 09:23 68 18 148/68 03/04/25 08:48 98.0 98 98.0 03/04/25 08:15 Room Air* 0 21 Intake/Output Intake and Output 03/04/25 07:00 Intake Total 150 ml Balance 150 ml Intake Oral 150 ml # Bowel Movements 1 General Appearance: Alert, Oriented X3 HEENT: Atraumatic Cardiovascular: Regular rate, Normal S1, Normal S2 Abdomen: Normal bowel sounds Medications Current Medications Medications Dose Ordered Sig/Caroline Route Start Time Stop Time Status Last Admin Dose Admin Sodium Chloride 10 ml Q8HR IV 03/03/25 14:00 03/04/25 05:27 10 ML Docusate Sodium 100 mg BIDPRN PRN PO 03/03/25 12:00 03/04/25 08:21 100 MG Acetaminophen 650 mg Q6HP PRN PO 03/03/25 12:00 Acetaminophen/ Hydrocodone Bitart 1 tab Q4HP PRN PO 03/03/25 12:00 03/04/25 11:26 1 TAB Hydromorphone HCl 0.5 mg Q4HP PRN IV 03/03/25 12:00 03/04/25 08:23 0.5 MG Ondansetron HCl 4 mg Q4HP PRN IV 03/03/25 12:00 Apixaban 5 mg BID PO 03/03/25 22:00 03/04/25 08:21 5 MG Carvedilol 12.5 mg BID PO 03/03/25 22:00 Hold Metoprolol Succinate 50 mg DAILY PO 03/04/25 10:00 03/04/25 08:22 50 MG Ticagrelor 60 mg BID PO 03/03/25 22:00 03/04/25 08:27 60 MG Amlodipine Besylate 10 mg DAILY PO 03/04/25 10:00 Hold Atorvastatin Calcium 40 mg HS PO 03/03/25 22:00 03/03/25 22:01 40 MG Patient Own Medication 1 cap DAILY OR 03/04/25 10:00 UNV Hydralazine HCl 100 mg TID PO 03/03/25 14:00 03/04/25 05:24 100 MG Nifedipine 90 mg DAILY PO 03/04/25 10:00 03/04/25 08:22 90 MG Sevelamer HCl 3,200 mg TIDWM PO 03/03/25 18:00 03/04/25 11:25 3,200 MG Diagnostic Test (Pha) 1 strip ACHS 03/03/25 17:00 03/04/25 11:27 1 STRIP Insulin Human Regular ACHS SC 03/03/25 17:00 03/03/25 17:35 3 UNITS Dextrose 50 ml UD PRN IV 03/03/25 12:00 Folic Acid 1 mg DAILY PO 03/03/25 15:00 03/04/25 08:22 1 MG Pyridoxine HCl 50 mg DAILY PO 03/03/25 15:00 03/04/25 08:21 50 MG Insulin Glargine 10 units HS SC 03/03/25 22:45 03/03/25 22:45 10 UNITS Lidocaine HCl 1 applic Q8HP PRN TOP 03/04/25 11:45 Laboratory Results Laboratory Tests 03/04/25 05:19 Chemistry Test 03/04/25 05:19 Albumin 4.0 g/dL (3.2-4.8) Calcium Level 10.3 mg/dL (8.7-10.4) Total Protein 7.5 g/dL (5.7-8.2) LFT Test 03/04/25 05:19 Alanine Aminotransferase (ALT) 10 U/L (7-40) Alkaline Phosphatase 156 U/L (46-116) H Aspartate Amino Transferase (AST) 12 U/L (13-40) L Total Bilirubin 0.2 mg/dL (0.2-1.0) Assessment/Plan Assessment/Plan Syncope Fall ESRD on HD Chronic right internal jugular vein thrombosis Plan MRI brain carotid US nephrology on consult for ESRD continue eliquis Plan discussed with: Patient My Orders Orders - ALLAN WHITE MD Procedure Category Date Status Time Lidocaine 5% Topical PHA 03/04/25 In Process Ointment (Xylocaine 11:45 Date of Service: Mar 04, 2025 Billing Provider: ALLAN WHITE MD Common Visit Codes: [id number] INP/OBS CARE(HIGH) ALLAN WHITE MD Mar 04, 2025 13:02
[2025-03-04] MEDS: LIDOCAINE HCL 5 % TOP OINT 35 GM TOP PRN (14:00)
--- NOTE | 2025-03-04 14:28 | DVHINCON2 ---
Date of service: Mar 04, [address] López Reason for Consultation End-stage renal disease management History of Present Illness 55-year-old patient with significant history of end-stage renal disease on hemodialysis TTS with last dialysis yesterday, CHF, CAD, anxiety, history of lumbar diskitis, hyperlipidemia, DVT right upper extremity, who presents to the hospital after a accidental fall suffering in contusion to the right chest wall associated with right rib pain as well as possible syncope per patient as he woke up on the ground unconscious. He decided to come to the hospital after his dialysis yesterday and he complains of blurry vision. He denies fever chills nausea vomiting diarrhea chest pain or bleeding from any source. Patient's chest pain is best described as 7/10 sharp when taking deep breath in the right side of his chest Laboratory data revealed end-stage renal disease consistent labs, normal potassium. Past Medical History End-stage renal disease, CAD, CHF, hypertension, DVT Past Surgical History Av fistula creation Allergies: Coded Allergies: No Known Drug Allergy (Verified Allergy, Unknown, 01/14/25) pt couldn't recall a name of an "antibiotic for pneumonia that caused him itching"' Home Meds Active Scripts Apixaban Base (ELIQUIS) 5 Mg Tab, 5 MG PO BID for 90 Days, #180 TAB Prov:BUSTER BORREGO RESIDENT 01/12/25 Ticagrelor Base (Brilinta) 60 Mg Tab, 60 MG PO BID for 30 Days, #60 TAB Prov:BLAIR SAGE RESIDENT 12/05/24 Nifedipine (Nifedipine Er) 90 Mg Tab, 1 TAB PO DAILY for 30 Days, #30 TAB 5 Refills Prov:BLAIR SAGE RESIDENT 12/05/24 Metoprolol Succinate (Metoprolol Succinate Er) 50 Mg Tab, 1 TAB PO DAILY for 30 Days, #30 TAB 5 Refills Prov:BLAIR SAGE RESIDENT 12/05/24 Insulin Lispro (Insulin Lispro) 100 Unit/Ml Inj, 100 UNIT IJ TID for 30 Days, #3 INJ 2-3 units subcutaneous t.i.d.. Always check your blood glucose before administering insulin, If blood sugar < 60 - have 15-20 g of glucose (8 oz cranberry juice, orange juice, apple juice, small carton of milk) go to the ER/call 911 Prov:BLAIR SAGE RESIDENT 12/05/24 Insulin Glargine (Lantus Solostar) 100 Unit/Ml Inj, 100 UNIT SC QPM for 30 Days, #3 INJ 15 units in the evening. Always check your blood glucose before administering insulin, If blood sugar < 60 - have 15-20 g of glucose (8 oz cranberry juice, orange juice, apple juice, small carton of milk) go to the ER/call 911 Prov:BLAIR SAGE [facility] 12/05/24 Folic Acid-Vitamin B6-Vitamin (B Complex/Folic Acid) Tab, 1 CAP OR DAILY for 30 Days, #30 TAB Prov:BLAIR SAGE [facility] 12/05/24 Atorvastatin Calcium (ATORVASTATIN CALCIUM) 40 Mg Tab, 1 TAB PO DAILY for 30 Days, #30 TAB 5 Refills Prov:BLAIR SAGE [facility] 12/05/24 Albuterol Sulfate (Albuterol Sulfate) 0.083 % Neb, 1 VIAL NEB Q4HPRN PRN for 30 Days, #50 VIAL Prov:BLAIR SAGE [facility] 12/05/24 Diphenhydramine-Zinc Acetate (Benadryl Cream) 1 Applic Ap, 1 APPLIC TOP Q6HPRN PRN for 30 Days, #120 APPLIC Prov:ALANA CANNON RESIDENT 07/30/23 Acetaminophen (Acetaminophen) 325 Mg Tab, 650 MG PO Q6HP PRN for 30 Days, #240 TAB Prov:ALANA CANNON RESIDENT 07/30/23 Reported Medications Lorazepam (Lorazepam) 1 Mg Tab, 1 TAB PO BIDPRN PRN for ANXIETY for 30 Days, #60 01/30/25 Trazodone Hcl (Trazodone Hcl) 100 Mg Tab, 1 TAB PO DAILY for 30 Days, #30 01/30/25 Sevelamer Carbonate (Sevelamer Carbonate) 800 Mg Tab, 4 TAB PO TID for 90 Days, #1080 01/30/25 Hydralazine Hcl (Hydralazine Hcl) 100 Mg Tab, 1 TAB PO TID for 30 Days, #90 01/30/25 Amlodipine Besylate (Amlodipine Besylate) 10 Mg Tab, 1 TAB PO DAILY for 30 Days, #30 01/30/25 Carvedilol (Carvedilol) 12.5 Mg Tab, 1 TAB PO BID for 30 Days, #60 01/30/25 Hydrocodone-Acetaminophen (Hydrocodone Bitartrate/AC 10-325 mg) 1 Tab Tab, 1 TAB PO QID, TAB 08/01/24 Patients Own Medication (PATIENTS OWN MEDICATION) ., 1 PATCH TD DAILY PTS OWN MED-OBTAIN FROM PT AND SEND TO RX DRUG: FREQ: RX# EXP: DATE DISP: TECH: [facility]: 10/16/23 Current Medications Current Medications Medications (Trade) Dose Ordered Sig/Caroline Route PRN Reason Start Time Stop Time Status Last Admin Apixaban (Eliquis) 5 mg BID PO 03/03/25 22:00 03/04/25 08:21 Carvedilol (Coreg Tablet) 12.5 mg BID PO 03/03/25 22:00 Hold Metoprolol Succinate (Toprol Xl) 50 mg DAILY PO 03/04/25 10:00 03/04/25 08:22 Ticagrelor (Brilinta) 60 mg BID PO 03/03/25 22:00 03/04/25 08:27 Amlodipine Besylate (Norvasc Tablet) 10 mg DAILY PO 03/04/25 10:00 Hold Atorvastatin Calcium (Lipitor) 40 mg HS PO 03/03/25 22:00 03/03/25 22:01 Patient Own Medication 1 cap DAILY OR 03/04/25 10:00 UNV Nifedipine (Procardia Xl (Time-Release)) 90 mg DAILY PO 03/04/25 10:00 03/04/25 08:22 Sevelamer HCl (Renagel) 3,200 mg TIDWM PO 03/03/25 18:00 03/04/25 11:25 Diagnostic Test (Pha) (Accu-Chek Comfort Curve T) 1 strip ACHS 03/03/25 17:00 03/04/25 11:27 Insulin Human Regular (InsuLIN R) ACHS SC 03/03/25 17:00 03/03/25 17:35 Insulin Glargine (Lantus) 20 units HS SC 03/03/25 22:00 03/03/25 22:41 DC Folic Acid 1 mg DAILY PO 03/03/25 15:00 03/04/25 08:22 Pyridoxine HCl (Vitamin B-6 Tablet) 50 mg DAILY PO 03/03/25 15:00 03/04/25 08:21 Insulin Glargine (Lantus) 10 units HS SC 03/03/25 22:45 03/03/25 22:45 Lidocaine HCl (Xylocaine 5% Topical Ointment) 1 applic Q8HP PRN TOP PAIN SCALE 1 THRU 6 03/04/25 11:45 03/04/25 14:00 Family History: Arthritis G8 MOTHER Diabetes mellitus G8 MOTHER G8 SISTER Hypertension G8 MOTHER G8 FATHER Social History He denies social smoking alcohol or drug abuse Review of Systems HEENT: Oral mucosa dry Neck no JVD Cardiovascular: Denies for chest pain denies orthopnea or PND Right-sided chest wall pain with inspiration Respiratory: Denies cough or shortness of breath Gastrointestinal: Denies for nausea vomiting Musculoskeletal: Denies myalgias Neurological: Denies focal weakness Dermatological: Denies any rash The rest of the review of systems were reviewed pertinent positives and pertin ent negatives are as per HPI up to 12 points review of systems H&P Exam Vital Signs/I&O Vital Sign Date Time Temp Pulse Resp B/P (MAP) Pulse Ox O2 Delivery O2 Flow Rate FiO2 03/04/25 13:33 151/62 03/04/25 13:00 97.2 67 19 95 97.2 03/04/25 08:15 Room Air* 0 21 Intake and Output 03/03/25 03/04/25 19:00 07:00 Intake Total 150 ml Balance 150 ml Intake Oral 150 ml # Bowel Movements 1 Physical Exam HEENT: No evidence of JVD, no oral ulcers. Pulmonary: Lungs are clear on auscultation bilaterally Cardiovascular S1-S2, no S3 or S4 Abdomen: Bowel sounds positive, soft no rebound tenderness Skin: No rash Neurological: Alert, oriented, no focal weakness Hemodialysis access positive bruit and thrill AV fistula Labs/Diagnostic Data Labs/Diagnostic Data Laboratory Tests Test 03/04/25 11:19 03/04/25 07:22 03/04/25 05:26 03/04/25 05:19 Range/Units POC Glucose 117 H 84 64 L 70-106 mg/dl White Blood Count 5.0 4.4-10.8 10^3/uL Red Blood Count 2.88 L 4.5-5.90 10^6/uL Hemoglobin 9.0 L 13.5-17.5 g/dL Hematocrit 27.1 L 41.0-53.0 % Mean Corpuscular Volume 93.8 80.0-100.0 fL Mean Corpuscular Hemoglobin 31.2 28.0-32.0 pg Mean Corpuscular Hemoglobin Concent 33.3 32.0-36.0 g/dL Red Cell Distribution Width 16.5 H 11.8-14.3 % Platelet Count 224 140-450 10^3/uL Mean Platelet Volume 8.7 6.9-10.8 fL Neutrophils (%) (Auto) 63.2 37.0-80.0 % Lymphocytes (%) (Auto) 17.3 10.0-50.0 % Monocytes (%) (Auto) 15.0 H 0.0-12.0 % Eosinophils (%) (Auto) 3.6 0.0-7.0 % Basophils (%) (Auto) 0.9 0.0-2.0 % Neutrophils # (Auto) 3.2 1.6-8.6 10 ^3/uL Lymphocytes # (Auto) 0.9 0.4-5.4 10 ^3/uL Monocytes # (Auto) 0.8 0-1.3 10 ^3/uL Eosinophils # (Auto) 0.2 0-0.8 10 ^3/uL Basophils # (Auto) 0 0-0.2 10 ^3/uL Nucleated Red Blood Cells 0.1 % Sodium Level 136 136-145 mmol/L Potassium Level 5.2 H 3.5-5.1 mmol/L Chloride Level 96 L 98-107 mmol/L Carbon Dioxide Level 26 20-31 mmol/L Anion Gap 14 5-15 Blood Urea Nitrogen 45 #H 9-23 mg/dL Creatinine 6.17 H 0.700-1.30 mg/dL Glomerular Filtration Rate Calc 10 >90 mL/min BUN/Creatinine Ratio 7.3 L 10.0-20.0 Serum Glucose 46 #*L 74-106 mg/dL Calcium Level 10.3 8.7-10.4 mg/dL Total Bilirubin 0.2 0.2-1.0 mg/dL Aspartate Amino Transferase (AST) 12 L 13-40 U/L Alanine Aminotransferase (ALT) 10 7-40 U/L Alkaline Phosphatase 156 H 46-116 U/L Total Protein 7.5 5.7-8.2 g/dL Albumin 4.0 3.2-4.8 g/dL Test 03/03/25 22:04 03/03/25 11:48 Range/Units POC Glucose 143 H 70-106 mg/dl White Blood Count 4.4 4.4-10.8 10^3/uL Red Blood Count 2.92 L 4.5-5.90 10^6/uL Hemoglobin 9.0 L 13.5-17.5 g/dL Hematocrit 27.4 L 41.0-53.0 % Mean Corpuscular Volume 94.0 80.0-100.0 fL Mean Corpuscular Hemoglobin 30.8 28.0-32.0 pg Mean Corpuscular Hemoglobin Concent 32.8 32.0-36.0 g/dL Red Cell Distribution Width 16.6 H 11.8-14.3 % Platelet Count 226 140-450 10^3/uL Mean Platelet Volume 8.4 6.9-10.8 fL Neutrophils (%) (Auto) 70.4 37.0-80.0 % Lymphocytes (%) (Auto) 11.0 10.0-50.0 % Monocytes (%) (Auto) 14.0 H 0.0-12.0 % Eosinophils (%) (Auto) 3.5 0.0-7.0 % Basophils (%) (Auto) 1.1 0.0-2.0 % Neutrophils # (Auto) 3.1 1.6-8.6 10 ^3/uL Lymphocytes # (Auto) 0.5 0.4-5.4 10 ^3/uL Monocytes # (Auto) 0.6 0-1.3 10 ^3/uL Eosinophils # (Auto) 0.2 0-0.8 10 ^3/uL Basophils # (Auto) 0 0-0.2 10 ^3/uL Nucleated Red Blood Cells 0.0 % Prothrombin Time 10.9 9.3-11.8 sec Prothrombin Time INR 1.03 0.9-1.15 Sodium Level 136 136-145 mmol/L Potassium Level 4.1 3.5-5.1 mmol/L Chloride Level 95 L 98-107 mmol/L Carbon Dioxide Level 32 H 20-31 mmol/L Anion Gap 9 5-15 Blood Urea Nitrogen 25 H 9-23 mg/dL Creatinine 4.70 H 0.700-1.30 mg/dL Glomerular Filtration Rate Calc 14 >90 mL/min BUN/Creatinine Ratio 5.3 L 10.0-20.0 Serum Glucose 166 H 74-106 mg/dL Calcium Level 10.1 8.7-10.4 mg/dL Microbiology Date/Time Source Procedure Growth Status 03/04/25 04:30 Nose MRSA Screen - Final Complete Ultrasound Doppler right upper extremity DVT, CT head no acute intracranial process Assessment Assessment: 1. End-stage renal disease on hemodialysis TTS via AV fistula 2. Chest wall pain secondary to contusion 3. Syncope 4. Hypertension 5. Anemia of end-stage renal disease 6. Secondary hyperparathyroidism 7. Hyperkalemia managed with dialysis 8. CHF managed with dialysis 9. History of diskitis 10. DVT right upper extremity 11. Diabetes type 2 complicated with hypoglycemia Plan: Lokelma p.o. x1 We will plan for dialysis tomorrow as patient requesting extra treatment given mild dyspnea. Continue TTS Fluid restriction less than 1 L per day Javed to attain goal hemoglobin of 10 at least Continue phosphate binders t.i.d. with each meal Continue antihypertensive meds, check orthostatic vitals Renal diet Analgesia, diabetes management Thank you very much for allowing us to participate in the care of this patient please contact if you have any questions. Plan discussed with: Patient SURINDER RUANO MD Mar 04, 2025 14:28
[2025-03-04] MEDS: LACTULOSE 20Gm/30ML SOLN PO PRN (17:24)
[2025-03-05] VITALS (8 sets, daily range): BP systolic 101–142; BP diastolic 44–78; PULSE 67–85; RESP 16–18; TEMP 97.9–98.2; O2SAT 97–100
[2025-03-05] MEDS: SODIUM CHL 0.9% 1000 ML BAG XX ONE (07:00)
[2025-03-05 07:11] LABS: Hematocrit 24.5 % (41.0-53.0); Hemoglobin 8.4 g/dL (13.5-17.5); Mean Corpuscular Hemoglobin 31.7 pg (28.0-32.0); Mean Corpuscular Volume 92.9 fL (80.0-100.0); Nucleated Red Blood Cells % 0.1 %
[2025-03-05 07:21] LABS: Alanine Aminotransferase 10 U/L (7-40); Albumin 3.9 g/dL (3.2-4.8); Anion Gap 16 (5-15); BUN/Creatinine Ratio 10.0 (10.0-20.0); Calcium 9.8 mg/dL (8.7-10.4); Carbon Dioxide 23 mmol/L (20-31); Glucose 76 mg/dL (74-106); Total Protein 7.2 g/dL (5.7-8.2)
[2025-03-05 07:24] LABS: Alkaline Phosphatase 137 U/L (46-116); Bilirubin, Total < 0.2 mg/dL (0.2-1.0); Blood Urea Nitrogen 76 mg/dL (9-23); Chloride 95 mmol/L (98-107); Sodium 134 mmol/L (136-145)
[2025-03-05 07:26] LABS: Iron 41.0 ug/dL (65-175); Potassium 6.1 mmol/L (3.5-5.1); Total Iron Binding Capacity 196.0 ug/dL (250-425)
--- NOTE | 2025-03-05 11:25 | DVHPN2 ---
Progress Note Date Seen: Mar 05, 2025 Medical Necessity Reason Pt with a Central, PICC or Fol: No Subjective Patient reports: No new complaints Review of Systems: HEENT:Normal, CVS:Normal, RESPIRATORY:Normal, GI:Normal, :Normal, MSK:Normal, NEURO:Normal Objective vital signs Vital Sign Date Time Temp Pulse Resp B/P (MAP) Pulse Ox O2 Delivery O2 Flow Rate FiO2 03/05/25 09:00 97.9 74 17 116/66 (83) 98 97.9 03/05/25 08:15 Room Air* 0 21 Total Intake and Output 03/04/25 03/04/25 03/05/25 15:00 23:00 07:00 Intake Total 300 ml 240 ml Balance 300 ml 240 ml medications Current Medications Medications Dose Ordered Sig/Caroline Route Start Time Stop Time Status Last Admin Dose Admin Sodium Chloride 10 ml Q8HR IV 03/03/25 14:00 03/05/25 05:47 10 ML Docusate Sodium 100 mg BIDPRN PRN PO 03/03/25 12:00 03/05/25 00:15 100 MG Acetaminophen 650 mg Q6HP PRN PO 03/03/25 12:00 Ondansetron HCl 4 mg Q4HP PRN IV 03/03/25 12:00 Metoprolol Succinate 50 mg DAILY PO 03/04/25 10:00 03/04/25 08:22 50 MG Ticagrelor 60 mg BID PO 03/03/25 22:00 03/05/25 09:01 60 MG Atorvastatin Calcium 40 mg HS PO 03/03/25 22:00 03/04/25 21:37 40 MG Patient Own Medication 1 cap DAILY OR 03/04/25 10:00 UNV Hydralazine HCl 100 mg TID PO 03/03/25 14:00 03/04/25 13:33 100 MG Nifedipine 90 mg DAILY PO 03/04/25 10:00 03/04/25 08:22 90 MG Sevelamer HCl 3,200 mg TIDWM PO 03/03/25 18:00 03/05/25 09:00 3,200 MG Diagnostic Test (Pha) 1 strip ACHS 03/03/25 17:00 03/05/25 05:47 1 STRIP Insulin Human Regular ACHS SC 03/03/25 17:00 03/03/25 17:35 3 UNITS Dextrose 50 ml UD PRN IV 03/03/25 12:00 Folic Acid 1 mg DAILY PO 03/03/25 15:00 03/05/25 09:00 1 MG Pyridoxine HCl 50 mg DAILY PO 03/03/25 15:00 03/04/25 08:21 50 MG Lidocaine HCl 1 applic Q8HP PRN TOP 03/04/25 11:45 03/05/25 07:26 1 APPLIC Lactulose 30 ml DAILYPRN PRN PO 03/04/25 16:45 03/04/25 17:24 30 ML Apixaban 2.5 mg BID PO 03/05/25 22:00 UNV Acetaminophen/ Hydrocodone Bitart 1 tab Q6HP PRN PO 03/05/25 11:15 UNV Examination: GENERAL:Normal, HEENT:Normal, NECK:Normal, LUNGS:Normal, CVS:Normal, ABDOMEN:Normal, MSK:Normal, SKIN:Normal, NEURO:Normal, :Normal laboratory and microbiology Laboratory Tests 03/05/25 05:24 Test 03/05/25 05:24 Range/Units Serum Glucose 76 74-106 mg/dL Microbiology Date/Time Source Procedure Growth Status 03/04/25 04:30 Nose MRSA Screen - Final Complete Problem List/Assessment/Plan Problem List/Assessment/Plan #1 fall with right rib pain #2 hyperkalemia: dialysis #3 esrd: on hemodialysis #4 htn #4 cad /ptca #5 right ij dvt #6 recent gi bleed: check stool occult blood: monitor hemoglobin #7 chronic systolic/diastolic heart failure #8 s/p pacer #9 asthma #10 dm: ssi advance care planning- full code- time spent 19mins Plan discussed with: Patient My Orders My Orders Orders - DAMON BEASLEY MD Procedure Category Date Status Time Apixaban (Eliquis) PHA 03/05/25 Logged 22:00 Hydrocodone-Acet PHA 03/05/25 Logged 10/325mg Tab ([place] 11:15 Pantoprazole Tablet PHA 03/05/25 Transmitted (Protonix Tablet) 11:30 Pantoprazole Tablet PHA 03/06/25 Transmitted (Protonix Tablet) 06:00 Sucralfate Susp PHA 03/05/25 Transmitted (Carafate Susp) 22:00 Sucralfate Susp PHA 03/05/25 Transmitted (Carafate Susp) 11:30 Stool Occult Blood LAB 03/05/25 Uncollected 11:17 Complete Blood Count LAB 03/06/25 Verified 06:00 Comprehensive LAB 03/06/25 Verified Metabolic Panel 06:00 Chest Portable XY 03/05/25 Transmitted 11:17 Date of Service: Mar 05, 2025 Billing Provider: DAMON BEASLEY MD Common Visit Codes: [id number] INP/OBS CARE(HIGH) Secondary Visit Codes: [id number] CARE PLAN 30 MINUTES DAMON BEASLEY MD Mar 05, 2025 11:25
[2025-03-05] MEDS: HYDROcodone-ACET 10/325MG TAB PO PRN (12:14)
[2025-03-05] MEDS: SUCRALFATE 1 GM/10 ML ORAL SUSP PO ONE (15:05)
[2025-03-05] MEDS: PANTOPRAZOLE 40 MG TAB PO ONE (15:05)
[2025-03-05 15:16] LABS: Hepatitis B Surface Antigen Negative (Negative); Hepatitis C Antibody Negative (Negative)
--- NOTE | 2025-03-05 17:17 | DVHPN2 ---
Progress Note - Dictate Date Seen: Mar 05, 2025 Medical Necessity Reason Pt with a Central, PICC or Fol: No Subjective pain has improved had dialysis today vital signs Vital Sign Date Time Temp Pulse Resp B/P (MAP) Pulse Ox O2 Delivery O2 Flow Rate FiO2 03/05/25 17:00 98.0 83 18 107/59 (75) 98 98.0 03/05/25 08:15 Room Air* 0 21 Total Intake and Output 03/04/25 03/04/25 03/05/25 15:00 23:00 07:00 Intake Total 300 ml 240 ml Balance 300 ml 240 ml medications Current Medications Medications Dose Ordered Sig/Caroline Route Start Time Stop Time Status Last Admin Dose Admin Sodium Chloride 10 ml Q8HR IV 03/03/25 14:00 03/05/25 15:06 10 ML Docusate Sodium 100 mg BIDPRN PRN PO 03/03/25 12:00 03/05/25 00:15 100 MG Acetaminophen 650 mg Q6HP PRN PO 03/03/25 12:00 Ondansetron HCl 4 mg Q4HP PRN IV 03/03/25 12:00 Metoprolol Succinate 50 mg DAILY PO 03/04/25 10:00 03/04/25 08:22 50 MG Ticagrelor 60 mg BID PO 03/03/25 22:00 03/05/25 09:01 60 MG Atorvastatin Calcium 40 mg HS PO 03/03/25 22:00 03/04/25 21:37 40 MG Patient Own Medication 1 cap DAILY OR 03/04/25 10:00 UNV Hydralazine HCl 100 mg TID PO 03/03/25 14:00 03/05/25 15:06 100 MG Nifedipine 90 mg DAILY PO 03/04/25 10:00 03/04/25 08:22 90 MG Sevelamer HCl 3,200 mg TIDWM PO 03/03/25 18:00 03/05/25 09:00 3,200 MG Diagnostic Test (Pha) 1 strip ACHS 03/03/25 17:00 03/05/25 11:30 1 STRIP Insulin Human Regular ACHS SC 03/03/25 17:00 03/03/25 17:35 3 UNITS Dextrose 50 ml UD PRN IV 03/03/25 12:00 Folic Acid 1 mg DAILY PO 03/03/25 15:00 03/05/25 09:00 1 MG Pyridoxine HCl 50 mg DAILY PO 03/03/25 15:00 03/04/25 08:21 50 MG Lidocaine HCl 1 applic Q8HP PRN TOP 03/04/25 11:45 03/05/25 07:26 1 APPLIC Lactulose 30 ml DAILYPRN PRN PO 03/04/25 16:45 03/04/25 17:24 30 ML Apixaban 2.5 mg BID PO 03/05/25 22:00 Acetaminophen/ Hydrocodone Bitart 1 tab Q6HP PRN PO 03/05/25 11:15 03/05/25 12:14 1 TAB Pantoprazole Sodium 40 mg DAILY@0600 PO 03/06/25 06:00 Sucralfate 1 gm BID@0600,2200 PO 03/05/25 22:00 objective HEENT: No evidence of JVD, no oral ulcers. Pulmonary: Lungs are clear on auscultation bilaterally Cardiovascular S1-S2, no S3 or S4 Abdomen: Bowel sounds positive, soft no rebound tenderness Skin: No rash Neurological: Alert, oriented, no focal weakness Hemodialysis access positive bruit and thrill AV fistula laboratory and microbiology Laboratory Tests 03/05/25 05:24 Test 03/05/25 05:24 Range/Units Serum Glucose 76 74-106 mg/dL Assessment/Plan Assessment: 1. End-stage renal disease on hemodialysis TTS via AV fistula 2. Chest wall pain secondary to contusion 3. Syncope 4. Hypertension 5. Anemia of end-stage renal disease 6. Secondary hyperparathyroidism 7. Hyperkalemia managed with dialysis 8. CHF managed with dialysis 9. History of diskitis 10. DVT right upper extremity 11. Diabetes type 2 complicated with hypoglycemia Plan: s/p HD this morning repeat HD tomorrow (Wednesday) Continue TTS Fluid restriction less than 1 L per day Javed to attain goal hemoglobin of 10 at least Continue phosphate binders t.i.d. with each meal Continue antihypertensive meds Renal diet Plan discussed with: Patient BHAVESH MCDONNELL MD Mar 05, 2025 17:17
[2025-03-05] MEDS ORDERED: SODIUM CHL 0.9% 1000 ML BAG XX ONE (17:30)
--- NOTE | 2025-03-05 18:51 | DVH ---
EXAM: XY CHEST PORTABLE HISTORY: cad TECHNIQUE: 1 view of the chest COMPARISON: XY CHEST PORTABLE on DOS: 01/21/25 FINDINGS/IMPRESSION: LUNGS: No pleural effusion, consolidation, or pneumothorax. Left anterior chest cardiac device. MEDIASTINUM: Borderline cardiomegaly BONES: No acute osseous abnormality. OTHER: None.
[2025-03-05] MEDS: EPOETIN ALFA-EPBX 4,000 UNIT/ML VIAL SC ONE ×2 (19:52→21:39)
[2025-03-05] MEDS: APIXABAN 5 MG TAB PO SCH (21:36)
[2025-03-05] MEDS: SUCRALFATE 1 GM/10 ML ORAL SUSP PO SCH (21:37)
[2025-03-06] VITALS (8 sets, daily range): BP systolic 102–166; BP diastolic 51–84; PULSE 71–86; RESP 16–19; TEMP 97.8–98.4; O2SAT 92–99
[2025-03-06] MEDS: PANTOPRAZOLE 40 MG TAB PO SCH (05:30)
[2025-03-06 06:44] LABS: Hemoglobin 8.0 g/dL (13.5-17.5)
[2025-03-06 06:46] LABS: Hematocrit 23.8 % (41.0-53.0); Mean Corpuscular Hemoglobin 31.1 pg (28.0-32.0); Mean Corpuscular Volume 93.1 fL (80.0-100.0); Nucleated Red Blood Cells % 0.1 %
[2025-03-06 07:05] LABS: Albumin 3.9 g/dL (3.2-4.8); Anion Gap 14 (5-15); BUN/Creatinine Ratio 10.2 (10.0-20.0); Calcium 10.0 mg/dL (8.7-10.4); Carbon Dioxide 24 mmol/L (20-31); Glucose 81 mg/dL (74-106); Total Protein 7.1 g/dL (5.7-8.2)
[2025-03-06 07:06] LABS: Sodium 135 mmol/L (136-145)
[2025-03-06 07:07] LABS: Alanine Aminotransferase < 9 U/L (7-40); Alkaline Phosphatase 136 U/L (46-116); Bilirubin, Total < 0.2 mg/dL (0.2-1.0); Blood Urea Nitrogen 66 mg/dL (9-23); Chloride 97 mmol/L (98-107)
[2025-03-06 07:09] LABS: Potassium 5.9 mmol/L (3.5-5.1)
--- NOTE | 2025-03-06 10:41 | DVHPN2 ---
Progress Note Date Seen: Mar 06, 2025 Medical Necessity Reason Pt with a Central, PICC or Fol: No Subjective Patient reports: No new complaints Review of Systems: HEENT:Normal, CVS:Normal, RESPIRATORY:Normal, GI:Normal, :Normal, MSK:Normal, NEURO:Normal Objective vital signs Vital Sign Date Time Temp Pulse Resp B/P (MAP) Pulse Ox O2 Delivery O2 Flow Rate FiO2 03/06/25 09:00 98.1 81 17 152/61 (91) 92 98.1 03/05/25 20:00 Room Air* 0 21 Total Intake and Output 03/05/25 03/05/25 03/06/25 15:00 23:00 07:00 Intake Total 834 ml 300 ml Balance 834 ml 300 ml medications Current Medications Medications Dose Ordered Sig/Caroline Route Start Time Stop Time Status Last Admin Dose Admin Sodium Chloride 10 ml Q8HR IV 03/03/25 14:00 03/06/25 05:25 10 ML Docusate Sodium 100 mg BIDPRN PRN PO 03/03/25 12:00 03/05/25 00:15 100 MG Acetaminophen 650 mg Q6HP PRN PO 03/03/25 12:00 Ondansetron HCl 4 mg Q4HP PRN IV 03/03/25 12:00 Metoprolol Succinate 50 mg DAILY PO 03/04/25 10:00 03/04/25 08:22 50 MG Ticagrelor 60 mg BID PO 03/03/25 22:00 03/05/25 21:36 60 MG Atorvastatin Calcium 40 mg HS PO 03/03/25 22:00 03/05/25 21:34 40 MG Patient Own Medication 1 cap DAILY OR 03/04/25 10:00 UNV Hydralazine HCl 100 mg TID PO 03/03/25 14:00 03/06/25 05:27 100 MG Nifedipine 90 mg DAILY PO 03/04/25 10:00 03/04/25 08:22 90 MG Sevelamer HCl 3,200 mg TIDWM PO 03/03/25 18:00 03/06/25 08:18 3,200 MG Diagnostic Test (Pha) 1 strip ACHS 03/03/25 17:00 03/06/25 05:39 1 STRIP Insulin Human Regular ACHS SC 03/03/25 17:00 03/05/25 18:42 2 UNITS Dextrose 50 ml UD PRN IV 03/03/25 12:00 Folic Acid 1 mg DAILY PO 03/03/25 15:00 03/05/25 09:00 1 MG Pyridoxine HCl 50 mg DAILY PO 03/03/25 15:00 03/04/25 08:21 50 MG Lidocaine HCl 1 applic Q8HP PRN TOP 03/04/25 11:45 03/06/25 10:25 1 APPLIC Lactulose 30 ml DAILYPRN PRN PO 03/04/25 16:45 03/04/25 17:24 30 ML Apixaban 2.5 mg BID PO 03/05/25 22:00 03/05/25 21:36 2.5 MG Acetaminophen/ Hydrocodone Bitart 1 tab Q6HP PRN PO 03/05/25 11:15 03/06/25 03:26 1 TAB Pantoprazole Sodium 40 mg DAILY@0600 PO 03/06/25 06:00 03/06/25 05:30 40 MG Sucralfate 1 gm BID@0600,2200 PO 03/05/25 22:00 03/06/25 05:27 1 GM Examination: GENERAL:Normal, HEENT:Normal, NECK:Normal, LUNGS:Normal, CVS:Normal, ABDOMEN:Normal, MSK:Normal, SKIN:Normal, NEURO:Normal, :Normal laboratory and microbiology Laboratory Tests 03/06/25 06:00 Test 03/06/25 06:00 Range/Units Serum Glucose 81 74-106 mg/dL Microbiology Date/Time Source Procedure Growth Status 03/04/25 04:30 Nose MRSA Screen - Final Complete Problem List/Assessment/Plan Problem List/Assessment/Plan #1 fall with right rib pain #2 hyperkalemia: dialysis #3 esrd: on hemodialysis #4 htn #4 cad /ptca #5 right ij dvt #6 gi bleed: ulices sweeney; gi bleed #7 chronic systolic/diastolic heart failure #8 s/p pacer #9 asthma #10 dm: ssi advance care planning- full code- time spent 19mins Plan discussed with: Patient My Orders My Orders Orders - DAMON BEASLEY MD Procedure Category Date Status Time Apixaban (Eliquis) PHA 03/05/25 In Process 22:00 Hydrocodone-Acet PHA 03/05/25 In Process 10/325mg Tab ([place] 11:15 Pantoprazole Tablet PHA 03/06/25 In Process (Protonix Tablet) 06:00 Sucralfate Susp PHA 03/05/25 In Process (Carafate Susp) 22:00 Chest Portable XY 03/05/25 Resulted 11:17 Date of Service: Mar 06, 2025 Billing Provider: DAMON BEASLEY MD Common Visit Codes: [id number] INP/OBS CARE(HIGH) DAMON BEASLEY MD Mar 06, 2025 10:41
--- NOTE | 2025-03-06 16:35 | DVHCONRES ---
Date Seen: Mar 06, 2025 Resident Creating Document: ELIEZER FERRARA RESIDENT History of Present Illness 55-year-old male presents to the ER with a prior medical history of anxiety, asthma, CAD, CHF, depression, diabetes, high lipids, hypertension, AR, ESRD, DVT RUE: Surgical history with a pacemaker, PTCA and the chief complaint of a fall. Patient reports on falling two days ago and states that when he breathes in he has bright rib pain as well as having posterior head pain. Patient reports he was walking and fell in the backyard due to unsteady ground from the [place] rocks. Patient notes on coming to the ER last night and was told by nurses to go to his dialysis Center and come back for which he did patient currently has a blurry vision as well. Denies any other symptoms at this time. Denies chills, fever, N/V/D, SOB, CP. No other associated symptoms, modifiers, recent injuries or sick contacts present at this time. PAST MEDICAL HISTORY: Anxiety, Asthma, CAD, CHF, Depression, DM, ESRD, High Lipids, HTN, AR Past Medical History (Other): DVT to the RUE Surgical History: Pacemaker, PTCA Patient seen and examined at bedside. Denies abdominal pain, nausea, vomiting, diarrhea. Reports dark black stools for 1 day. Stool occult positive. Family History: Arthritis G8 MOTHER Diabetes mellitus G8 MOTHER G8 SISTER Hypertension G8 MOTHER G8 FATHER Allergies: Coded Allergies: No Known Drug Allergy (Verified Allergy, Unknown, 01/14/25) pt couldn't recall a name of an "antibiotic for pneumonia that caused him itching"' Home Meds Active Scripts Apixaban Base (ELIQUIS) 5 Mg Tab, 5 MG PO BID for 90 Days, #180 TAB Prov:BUSTER BORREGO RESIDENT 01/12/25 Ticagrelor Base (Brilinta) 60 Mg Tab, 60 MG PO BID for 30 Days, #60 TAB Prov:BLAIR SAGE RESIDENT 12/05/24 Nifedipine (Nifedipine Er) 90 Mg Tab, 1 TAB PO DAILY for 30 Days, #30 TAB 5 Refills Prov:BLAIR SAGE RESIDENT 12/05/24 Metoprolol Succinate (Metoprolol Succinate Er) 50 Mg Tab, 1 TAB PO DAILY for 30 Days, #30 TAB 5 Refills Prov:BLAIR SAGE RESIDENT 12/05/24 Insulin Lispro (Insulin Lispro) 100 Unit/Ml Inj, 100 UNIT IJ TID for 30 Days, #3 INJ 2-3 units subcutaneous t.i.d.. Always check your blood glucose before administering insulin, If blood sugar < 60 - have 15-20 g of glucose (8 oz cranberry juice, orange juice, apple juice, small carton of milk) go to the ER/call 911 Prov:BLAIR SAGE RESIDENT 12/05/24 Insulin Glargine (Lantus Solostar) 100 Unit/Ml Inj, 100 UNIT SC QPM for 30 Days, #3 INJ 15 units in the evening. Always check your blood glucose before administering insulin, If blood sugar < 60 - have 15-20 g of glucose (8 oz cranberry juice, orange juice, apple juice, small carton of milk) go to the ER/call 911 Prov:BLAIR SAGE [facility] 12/05/24 Folic Acid-Vitamin B6-Vitamin (B Complex/Folic Acid) Tab, 1 CAP OR DAILY for 30 Days, #30 TAB Prov:BLAIR SAGE [facility] 12/05/24 Atorvastatin Calcium (ATORVASTATIN CALCIUM) 40 Mg Tab, 1 TAB PO DAILY for 30 Days, #30 TAB 5 Refills Prov:BLAIR SAGE [facility] 12/05/24 Albuterol Sulfate (Albuterol Sulfate) 0.083 % Neb, 1 VIAL NEB Q4HPRN PRN for 30 Days, #50 VIAL Prov:BLAIR SAGE [facility] 12/05/24 Diphenhydramine-Zinc Acetate (Benadryl Cream) 1 Applic Ap, 1 APPLIC TOP Q6HPRN PRN for 30 Days, #120 APPLIC Prov:ALANA CANNON RESIDENT 07/30/23 Acetaminophen (Acetaminophen) 325 Mg Tab, 650 MG PO Q6HP PRN for 30 Days, #240 TAB Prov:ALANA CANNON RESIDENT 07/30/23 Reported Medications Lorazepam (Lorazepam) 1 Mg Tab, 1 TAB PO BIDPRN PRN for ANXIETY for 30 Days, #60 01/30/25 Trazodone Hcl (Trazodone Hcl) 100 Mg Tab, 1 TAB PO DAILY for 30 Days, #30 01/30/25 Sevelamer Carbonate (Sevelamer Carbonate) 800 Mg Tab, 4 TAB PO TID for 90 Days, #1080 01/30/25 Hydralazine Hcl (Hydralazine Hcl) 100 Mg Tab, 1 TAB PO TID for 30 Days, #90 01/30/25 Amlodipine Besylate (Amlodipine Besylate) 10 Mg Tab, 1 TAB PO DAILY for 30 Days, #30 01/30/25 Carvedilol (Carvedilol) 12.5 Mg Tab, 1 TAB PO BID for 30 Days, #60 01/30/25 Hydrocodone-Acetaminophen (Hydrocodone Bitartrate/AC 10-325 mg) 1 Tab Tab, 1 TAB PO QID, TAB 08/01/24 Patients Own Medication (PATIENTS OWN MEDICATION) ., 1 PATCH TD DAILY PTS OWN MED-OBTAIN FROM PT AND SEND TO RX DRUG: FREQ: RX# EXP: DATE DISP: TECH: [facility]: 10/16/23 Current Medications Current Medications Medications (Trade) Dose Ordered Sig/Caroline Route PRN Reason Start Time Stop Time Status Last Admin Apixaban (Eliquis) 2.5 mg BID PO 03/05/25 22:00 03/06/25 10:41 DC 03/05/25 21:36 Pantoprazole Sodium (Protonix Tablet) 40 mg DAILY@0600 PO 03/06/25 06:00 03/06/25 05:30 Sucralfate (Carafate Susp) 1 gm BID@0600,2200 PO 03/05/25 22:00 03/06/25 05:27 Vital Signs Vital Signs Date Time Temp Pulse Resp B/P (MAP) Pulse Ox O2 Delivery O2 Flow Rate FiO2 03/06/25 13:00 98.1 71 19 143/81 (101) 99 98.1 03/06/25 08:00 Room Air* 0 21 Physical Exam Patient lying in bed, in no acute distress General: Well-built, afebrile, palor, mucosae are moist Cardiovascular: Regular S1 and S2. No murmurs, gallops or rubs. No JVD elevation. No pedal edema Respiratory: Normal B/L air entry on room air. Clear lung sounds on auscultation Abdomen: Soft, nontender, nondistended, normoactive bowel sounds, no rebound tenderness, no organomegaly, no masses Genitourinary: Deferred MSK/skin: Mobilizes 4 limbs. Skin is dry and warm Neurological: No motor, no sensitive deficits, normal speech. Pupils are i socoric and reactive. Psych/Mental Status: A/Ox3 Labs/Diagnostic Data Labs Test 03/06/25 11:34 03/06/25 06:00 03/05/25 17:40 03/05/25 05:24 Range/Units POC Glucose 110 H 70-106 mg/dl White Blood Count 3.5 L 4.4-10.8 10^3/uL Red Blood Count 2.55 L 4.5-5.90 10^6/uL Hemoglobin 8.0 L 13.5-17.5 g/dL Hematocrit 23.8 L 41.0-53.0 % Mean Corpuscular Volume 93.1 80.0-100.0 fL Mean Corpuscular Hemoglobin 31.1 28.0-32.0 pg Mean Corpuscular Hemoglobin Concent 33.5 32.0-36.0 g/dL Red Cell Distribution Width 16.6 H 11.8-14.3 % Platelet Count 206 140-450 10^3/uL Mean Platelet Volume 8.3 6.9-10.8 fL Neutrophils (%) (Auto) 60.4 37.0-80.0 % Lymphocytes (%) (Auto) 20.2 10.0-50.0 % Monocytes (%) (Auto) 13.3 H 0.0-12.0 % Eosinophils (%) (Auto) 5.1 0.0-7.0 % Basophils (%) (Auto) 1.0 0.0-2.0 % Neutrophils # (Auto) 2.1 1.6-8.6 10 ^3/uL Lymphocytes # (Auto) 0.7 0.4-5.4 10 ^3/uL Monocytes # (Auto) 0.5 0-1.3 10 ^3/uL Eosinophils # (Auto) 0.2 0-0.8 10 ^3/uL Basophils # (Auto) 0 0-0.2 10 ^3/uL Nucleated Red Blood Cells 0.1 % Sodium Level 135 L 136-145 mmol/L Potassium Level 5.9 *H 3.5-5.1 mmol/L Chloride Level 97 L 98-107 mmol/L Carbon Dioxide Level 24 20-31 mmol/L Anion Gap 14 5-15 Blood Urea Nitrogen 66 #H 9-23 mg/dL Creatinine 6.47 H 0.700-1.30 mg/dL Glomerular Filtration Rate Calc 10 >90 mL/min BUN/Creatinine Ratio 10.2 10.0-20.0 Serum Glucose 81 74-106 mg/dL Calcium Level 10.0 8.7-10.4 mg/dL Total Bilirubin < 0.2 L 0.2-1.0 mg/dL Aspartate Amino Transferase (AST) 14 13-40 U/L Alanine Aminotransferase (ALT) < 9 7-40 U/L Alkaline Phosphatase 136 H 46-116 U/L Total Protein 7.1 5.7-8.2 g/dL Albumin 3.9 3.2-4.8 g/dL Stool Occult Blood Positive Negative Stool Occult Blood Sample #3 Negative Iron Level 41 L 65-175 ug/dL Total Iron Binding Capacity 196 L 250-425 ug/dL Percent Iron Saturation 20.9 20-55 % Ferritin 351.5 H 22-322 ng/mL Hepatitis A IgM Antibody Negative Hepatitis B Surface Antigen Negative Negative Hepatitis B Core IgM Antibody Negative Negative Hepatitis C Antibody Negative Negative Test 03/03/25 11:48 Range/Units Prothrombin Time 10.9 9.3-11.8 sec Prothrombin Time INR 1.03 0.9-1.15 Microbiology Date/Time Source Procedure Growth Status 03/04/25 04:30 Nose MRSA Screen - Final Complete Assessment Likely upper GI bleed Right upper extremity DVT 3 cm sliding-type hiatal hernia Mild antral gastritis Colonic polyps, tubular adenomas Anemia likely chronic kidney disease 1+ internal hemorrhoids Mechanical fall Hyperkalemia ESRD on dialysis History of CAD with PTCA Chronic heart failure Diabetes mellitus type 2 DATE OF OPERATION: 02/02/25 PROCEDURE: Upper Endoscopy with biopsy. 1. 3 cm sliding-type hiatal hernia with slightly irregular squamocolumnar junction grade B erosive esophagitis and some whitish plaques extending into the distal 8 cm of the esophagus 2. Mild antral gastritis with pylorospasm otherwise normal examination up to the 2nd and 3rd part of the duodenum DATE OF OPERATION: 02/02/25 PROCEDURE: Colonoscopy with hot snare polypectomy. 1. 1.5 cm benign-appearing distal transverse colon polyp was seen and removed by hot snare polypectomy and the specimens were retrieved 2. There was a 2 cm tri lobed benign-appearing descending colon polyp that was seen and removed by hot snare polypectomy and the specimens were retrieved 3. Patient had a long tortuous and spastic colon 4. Trace to 1+ internal hemorrhoids otherwise normal examination up to the cecum no fresh or old blood in the GI tract at this time and good bowel prep Plan: Dr. Salinas: Patient recently underwent upper EGD and colonoscopy, and was diagnosed with subcentimeter hiatal hernia, mild antral gastritis. We recommend continuing medical management at this time. Pathology reports from prior endoscopy showed no dysplasia or malignancy, no Helicobacter pylori and duodenum and stomach. Esophageal biopsy showed squamous mucosa with orthokeratosis and parakeratosis, cardia type columnar mucosa with mild chronic inflammation Transverse colon polyp polypectomy was tubular adenoma without high-grade dysplasia or malignancy. Descending colon showed tubular adenoma without high- grade dysplasia or malignancy Continue Protonix 40 mg twice daily, Carafate TID Elevated ferritin likely acute phase reactant, otherwise iron profile history of chronic disease Right upper extremity venous duplex showed occlusive thrombus in the right IJ 03/03, hold anticoagulation at this time Head CT shows old lacunar infarcts Thank you for consulting GI Plan discussed with patient in which all questions have been answered Case discussed with Dr. Salinas Plan discussed with: Patient ELIEZER FERRARA RESIDENT Mar 06, 2025 16:35
--- NOTE | 2025-03-06 17:12 | DVHPN2 ---
Progress Note - Dictate Date Seen: Mar 06, 2025 Medical Necessity Reason Pt with a Central, PICC or Fol: No Subjective pain has improved had repeat dialysis today vital signs Vital Sign Date Time Temp Pulse Resp B/P (MAP) Pulse Ox O2 Delivery O2 Flow Rate FiO2 03/06/25 13:00 98.1 71 19 143/81 (101) 99 98.1 03/06/25 08:00 Room Air* 0 21 Total Intake and Output 03/05/25 03/05/25 03/06/25 15:00 23:00 07:00 Intake Total 834 ml 300 ml Balance 834 ml 300 ml medications Current Medications Medications Dose Ordered Sig/Caroline Route Start Time Stop Time Status Last Admin Dose Admin Sodium Chloride 10 ml Q8HR IV 03/03/25 14:00 03/06/25 14:00 10 ML Docusate Sodium 100 mg BIDPRN PRN PO 03/03/25 12:00 03/05/25 00:15 100 MG Acetaminophen 650 mg Q6HP PRN PO 03/03/25 12:00 Ondansetron HCl 4 mg Q4HP PRN IV 03/03/25 12:00 Metoprolol Succinate 50 mg DAILY PO 03/04/25 10:00 03/04/25 08:22 50 MG Atorvastatin Calcium 40 mg HS PO 03/03/25 22:00 03/05/25 21:34 40 MG Patient Own Medication 1 cap DAILY OR 03/04/25 10:00 UNV Hydralazine HCl 100 mg TID PO 03/03/25 14:00 03/06/25 05:27 100 MG Nifedipine 90 mg DAILY PO 03/04/25 10:00 03/04/25 08:22 90 MG Sevelamer HCl 3,200 mg TIDWM PO 03/03/25 18:00 03/06/25 13:50 3,200 MG Diagnostic Test (Pha) 1 strip ACHS 03/03/25 17:00 03/06/25 11:39 1 STRIP Insulin Human Regular ACHS SC 03/03/25 17:00 03/05/25 18:42 2 UNITS Dextrose 50 ml UD PRN IV 03/03/25 12:00 Folic Acid 1 mg DAILY PO 03/03/25 15:00 03/05/25 09:00 1 MG Pyridoxine HCl 50 mg DAILY PO 03/03/25 15:00 03/04/25 08:21 50 MG Lidocaine HCl 1 applic Q8HP PRN TOP 03/04/25 11:45 03/06/25 10:25 1 APPLIC Lactulose 30 ml DAILYPRN PRN PO 03/04/25 16:45 03/04/25 17:24 30 ML Acetaminophen/ Hydrocodone Bitart 1 tab Q6HP PRN PO 03/05/25 11:15 03/06/25 03:26 1 TAB Pantoprazole Sodium 40 mg BID IV 03/06/25 22:00 Sucralfate 1 gm TID@0600,1130,2200 PO 03/06/25 22:00 objective HEENT: No evidence of JVD, no oral ulcers. Pulmonary: Lungs are clear on auscultation bilaterally Cardiovascular S1-S2, no S3 or S4 Abdomen: Bowel sounds positive, soft no rebound tenderness Skin: No rash Neurological: Alert, oriented, no focal weakness Hemodialysis access positive bruit and thrill AV fistula laboratory and microbiology Laboratory Tests 03/06/25 06:00 Test 03/06/25 06:00 Range/Units Serum Glucose 81 74-106 mg/dL Assessment/Plan Assessment: 1. End-stage renal disease on hemodialysis TTS via AV fistula 2. Chest wall pain secondary to contusion 3. Syncope 4. Hypertension 5. Anemia of end-stage renal disease 6. Secondary hyperparathyroidism 7. Hyperkalemia managed with dialysis 8. CHF managed with dialysis 9. History of diskitis 10. DVT right upper extremity 11. Diabetes type 2 complicated with hypoglycemia Plan: s/p HD Wednesday, and Wednesday Continue TTS Fluid restriction less than 1 L per day Javed , goal Hb: 10-11 g/dl Continue phosphate binders t.i.d. with each meal Continue antihypertensive meds Renal diet Plan discussed with: Patient BHAVESH MCDONNELL MD Mar 06, 2025 17:12
[2025-03-06] MEDS: SUCRALFATE 1 GM/10 ML ORAL SUSP PO ONE (17:48)
[2025-03-06] MEDS: SUCRALFATE 1 GM/10 ML ORAL SUSP PO SCH (21:24)
[2025-03-06] MEDS: PANTOPRAZOLE 40 MG/10 ML VIAL INJ IV SCH (21:24)
[2025-03-07] VITALS (8 sets, daily range): BP systolic 121–161; BP diastolic 58–89; PULSE 72–90; RESP 16–19; TEMP 97.6–98.3; O2SAT 94–97
[2025-03-07 06:47] LABS: Hematocrit 23.5 % (41.0-53.0); Hemoglobin 8.0 g/dL (13.5-17.5); Mean Corpuscular Hemoglobin 32.0 pg (28.0-32.0); Mean Corpuscular Volume 93.8 fL (80.0-100.0); Nucleated Red Blood Cells % 0.1 %
[2025-03-07 06:54] LABS: Anion Gap 13 (5-15); Carbon Dioxide 28 mmol/L (20-31); Sodium 139 mmol/L (136-145)
[2025-03-07 06:56] LABS: Calcium 9.9 mg/dL (8.7-10.4)
--- NOTE | 2025-03-07 06:56 | DVHPN2 ---
Progress Note - Dictate Date Seen: Mar 07, 2025 Medical Necessity Reason Pt with a Central, PICC or Fol: No Subjective no new symptoms vital signs Vital Sign Date Time Temp Pulse Resp B/P (MAP) Pulse Ox O2 Delivery O2 Flow Rate FiO2 03/07/25 05:53 127/89 03/07/25 05:00 98.3 83 19 94 98.3 03/06/25 20:00 Room Air* 0 21 Total Intake and Output 03/06/25 03/06/25 03/07/25 15:00 23:00 07:00 Intake Total 1148 ml 460 ml Balance 1148 ml 460 ml medications Current Medications Medications Dose Ordered Sig/Caroline Route Start Time Stop Time Status Last Admin Dose Admin Sodium Chloride 10 ml Q8HR IV 03/03/25 14:00 03/07/25 05:53 10 ML Docusate Sodium 100 mg BIDPRN PRN PO 03/03/25 12:00 03/05/25 00:15 100 MG Acetaminophen 650 mg Q6HP PRN PO 03/03/25 12:00 Ondansetron HCl 4 mg Q4HP PRN IV 03/03/25 12:00 Metoprolol Succinate 50 mg DAILY PO 03/04/25 10:00 03/04/25 08:22 50 MG Atorvastatin Calcium 40 mg HS PO 03/03/25 22:00 03/06/25 21:25 40 MG Patient Own Medication 1 cap DAILY OR 03/04/25 10:00 UNV Hydralazine HCl 100 mg TID PO 03/03/25 14:00 03/07/25 05:53 100 MG Nifedipine 90 mg DAILY PO 03/04/25 10:00 03/04/25 08:22 90 MG Sevelamer HCl 3,200 mg TIDWM PO 03/03/25 18:00 03/06/25 17:47 3,200 MG Diagnostic Test (Pha) 1 strip ACHS 03/03/25 17:00 03/07/25 05:54 1 STRIP Insulin Human Regular ACHS SC 03/03/25 17:00 03/06/25 21:38 2 UNITS Dextrose 50 ml UD PRN IV 03/03/25 12:00 Folic Acid 1 mg DAILY PO 03/03/25 15:00 03/05/25 09:00 1 MG Pyridoxine HCl 50 mg DAILY PO 03/03/25 15:00 03/04/25 08:21 50 MG Lidocaine HCl 1 applic Q8HP PRN TOP 03/04/25 11:45 03/06/25 21:48 1 APPLIC Lactulose 30 ml DAILYPRN PRN PO 03/04/25 16:45 03/04/25 17:24 30 ML Acetaminophen/ Hydrocodone Bitart 1 tab Q6HP PRN PO 03/05/25 11:15 03/07/25 01:56 1 TAB Pantoprazole Sodium 40 mg BID IV 03/06/25 22:00 03/06/25 21:24 40 MG Sucralfate 1 gm TID@0600,1130,2200 PO 03/06/25 22:00 03/07/25 05:53 1 GM objective HEENT: No evidence of JVD, no oral ulcers. Pulmonary: Lungs are clear on auscultation bilaterally Cardiovascular S1-S2, no S3 or S4 Abdomen: Bowel sounds positive, soft no rebound tenderness Skin: No rash Neurological: Alert, oriented, no focal weakness Hemodialysis access positive bruit and thrill AV fistula laboratory and microbiology Laboratory Tests 03/07/25 05:41 Test 03/07/25 05:41 Range/Units Serum Glucose Pending Assessment/Plan Assessment: 1. End-stage renal disease on hemodialysis TTS via AV fistula 2. Chest wall pain secondary to contusion 3. Syncope 4. Hypertension 5. Anemia of end-stage renal disease 6. Secondary hyperparathyroidism 7. Hyperkalemia managed with dialysis 8. CHF managed with dialysis 9. History of diskitis 10. DVT right upper extremity 11. Diabetes type 2 complicated with hypoglycemia Plan: s/p HD Wednesday, and Wednesday Next dialysis likely on labs from today are pending Continue TTS Fluid restriction less than 1 L per day Javed , goal Hb: 10-11 g/dl Continue phosphate binders t.i.d. with each meal Continue antihypertensive meds Renal diet Plan discussed with: Patient BHAVESH MCDONNELL MD Mar 07, 2025 06:56
[2025-03-07 07:01] LABS: BUN/Creatinine Ratio 8.4 (10.0-20.0)
[2025-03-07 07:04] LABS: Blood Urea Nitrogen 54 mg/dL (9-23); Chloride 98 mmol/L (98-107); Glucose 141 mg/dL (74-106); Potassium 5.5 mmol/L (3.5-5.1)
--- NOTE | 2025-03-07 10:22 | DVHPN2 ---
Progress Note Date Seen: Mar 07, 2025 Medical Necessity Reason Pt with a Central, PICC or Fol: No Subjective Patient reports: No new complaints Review of Systems: HEENT:Normal, CVS:Normal, RESPIRATORY:Normal, GI:Normal, :Normal, MSK:Normal, NEURO:Normal Objective vital signs Vital Sign Date Time Temp Pulse Resp B/P (MAP) Pulse Ox O2 Delivery O2 Flow Rate FiO2 03/07/25 09:02 82 161/73 03/07/25 09:00 98.0 18 96 98.0 03/06/25 20:00 Room Air* 0 21 Total Intake and Output 03/06/25 03/06/25 03/07/25 15:00 23:00 07:00 Intake Total 1148 ml 460 ml Balance 1148 ml 460 ml medications Current Medications Medications Dose Ordered Sig/Caroline Route Start Time Stop Time Status Last Admin Dose Admin Sodium Chloride 10 ml Q8HR IV 03/03/25 14:00 03/07/25 05:53 10 ML Docusate Sodium 100 mg BIDPRN PRN PO 03/03/25 12:00 03/07/25 09:00 100 MG Acetaminophen 650 mg Q6HP PRN PO 03/03/25 12:00 Ondansetron HCl 4 mg Q4HP PRN IV 03/03/25 12:00 Metoprolol Succinate 50 mg DAILY PO 03/04/25 10:00 03/07/25 09:02 50 MG Atorvastatin Calcium 40 mg HS PO 03/03/25 22:00 03/06/25 21:25 40 MG Patient Own Medication 1 cap DAILY OR 03/04/25 10:00 UNV Hydralazine HCl 100 mg TID PO 03/03/25 14:00 03/07/25 05:53 100 MG Nifedipine 90 mg DAILY PO 03/04/25 10:00 03/07/25 09:00 90 MG Sevelamer HCl 3,200 mg TIDWM PO 03/03/25 18:00 03/07/25 09:02 3,200 MG Diagnostic Test (Pha) 1 strip ACHS 03/03/25 17:00 03/07/25 05:54 1 STRIP Insulin Human Regular ACHS SC 03/03/25 17:00 03/06/25 21:38 2 UNITS Dextrose 50 ml UD PRN IV 03/03/25 12:00 Folic Acid 1 mg DAILY PO 03/03/25 15:00 03/07/25 09:01 1 MG Pyridoxine HCl 50 mg DAILY PO 03/03/25 15:00 03/04/25 08:21 50 MG Lidocaine HCl 1 applic Q8HP PRN TOP 03/04/25 11:45 03/06/25 21:48 1 APPLIC Lactulose 30 ml DAILYPRN PRN PO 03/04/25 16:45 03/04/25 17:24 30 ML Acetaminophen/ Hydrocodone Bitart 1 tab Q6HP PRN PO 03/05/25 11:15 03/07/25 01:56 1 TAB Pantoprazole Sodium 40 mg BID IV 03/06/25 22:00 03/07/25 09:03 40 MG Sucralfate 1 gm TID@0600,1130,2200 PO 03/06/25 22:00 03/07/25 05:53 1 GM Examination: GENERAL:Normal, HEENT:Normal, NECK:Normal, LUNGS:Normal, CVS:Normal, ABDOMEN:Normal, MSK:Normal, SKIN:Normal, NEURO:Normal, :Normal laboratory and microbiology Laboratory Tests 03/07/25 05:41 Test 03/07/25 05:41 Range/Units Serum Glucose 141 H 74-106 mg/dL Microbiology Date/Time Source Procedure Growth Status 03/04/25 04:30 Nose MRSA Screen - Final Complete Problem List/Assessment/Plan Problem List/Assessment/Plan #1 fall with right rib pain #2 hyperkalemia: dialysis #3 esrd: on hemodialysis #4 htn #4 cad /ptca #5 right ij dvt #6 gi bleed: ulices sweeney; gi eval #7 chronic systolic/diastolic heart failure #8 s/p pacer #9 asthma #10 dm: ssi #11 anemia advance care planning- full code- time spent 19mins Plan discussed with: Patient My Orders My Orders Orders - DAMON BEASLEY MD Procedure Category Date Status Time * [facility] [employer] CONS 03/06/25 Transmitted 10:39 Basic Metabolic Panel LAB 03/08/25 Verified 06:00 Complete Blood Count LAB 03/08/25 Verified 06:00 Date of Service: Mar 07, 2025 Billing Provider: DAMON BEASLEY MD Common Visit Codes: [id number] INP/OBS CARE(HIGH) DAMON BEASLEY MD Mar 07, 2025 10:22
--- NOTE | 2025-03-07 16:38 | DVHPN2 ---
Progress Note Date Seen: Mar 07, 2025 Resident Creating Document: ELIEZER FERRARA RESIDENT Medical Necessity Reason Pt with a Central, PICC or Fol: No Subjective Review of Systems 55-year-old male presents to the ER with a prior medical history of anxiety, asthma, CAD, CHF, depression, diabetes, high lipids, hypertension, [place], ESRD, DVT RUE: Surgical history with a pacemaker, PTCA and the chief complaint of a fall. Patient reports on falling two days ago and states that when he breathes in he has bright rib pain as well as having posterior head pain. Patient reports he was walking and fell in the backyard due to unsteady ground from the [place] rocks. Patient notes on coming to the ER last night and was told by nurses to go to his dialysis Center and come back for which he did patient currently has a blurry vision as well. Denies any other symptoms at this time. Denies chills, fever, N/V/D, SOB, CP. No other associated symptoms, modifiers, recent injuries or sick contacts present at this time. PAST MEDICAL HISTORY: Anxiety, Asthma, CAD, CHF, Depression, DM, ESRD, High Lipids, HTN, [place] Past Medical History (Other): DVT to the RUE Surgical History: Pacemaker, PTCA 03/06-Patient seen and examined at bedside. Denies abdominal pain, nausea, vomiting, diarrhea. Reports dark black stools for 1 day. Stool occult positive. 03/07-patient seen and examined. Hemoglobin stable at 8. Objective vital signs Vital Sign Date Time Temp Pulse Resp B/P (MAP) Pulse Ox O2 Delivery O2 Flow Rate FiO2 03/07/25 13:43 147/73 03/07/25 12:39 97.6 72 18 96 97.6 03/07/25 08:00 Room Air* 0 21 Total Intake and Output 03/06/25 03/06/25 03/07/25 15:00 23:00 07:00 Intake Total 1148 ml 460 ml Balance 1148 ml 460 ml medications Current Medications Medications Dose Ordered Sig/Caroline Route Start Time Stop Time Status Last Admin Dose Admin Sodium Chloride 10 ml Q8HR IV 03/03/25 14:00 03/07/25 13:43 10 ML Docusate Sodium 100 mg BIDPRN PRN PO 03/03/25 12:00 03/07/25 09:00 100 MG Acetaminophen 650 mg Q6HP PRN PO 03/03/25 12:00 Ondansetron HCl 4 mg Q4HP PRN IV 03/03/25 12:00 Metoprolol Succinate 50 mg DAILY PO 03/04/25 10:00 03/07/25 09:02 50 MG Atorvastatin Calcium 40 mg HS PO 03/03/25 22:00 03/06/25 21:25 40 MG Patient Own Medication 1 cap DAILY OR 03/04/25 10:00 UNV Hydralazine HCl 100 mg TID PO 03/03/25 14:00 03/07/25 13:43 100 MG Nifedipine 90 mg DAILY PO 03/04/25 10:00 03/07/25 09:00 90 MG Sevelamer HCl 3,200 mg TIDWM PO 03/03/25 18:00 03/07/25 09:02 3,200 MG Diagnostic Test (Pha) 1 strip ACHS 03/03/25 17:00 03/07/25 05:54 1 STRIP Insulin Human Regular ACHS SC 03/03/25 17:00 03/06/25 21:38 2 UNITS Dextrose 50 ml UD PRN IV 03/03/25 12:00 Folic Acid 1 mg DAILY PO 03/03/25 15:00 03/07/25 09:01 1 MG Pyridoxine HCl 50 mg DAILY PO 03/03/25 15:00 03/07/25 11:08 50 MG Lidocaine HCl 1 applic Q8HP PRN TOP 03/04/25 11:45 03/07/25 11:48 1 APPLIC Lactulose 30 ml DAILYPRN PRN PO 03/04/25 16:45 03/07/25 14:44 30 ML Acetaminophen/ Hydrocodone Bitart 1 tab Q6HP PRN PO 03/05/25 11:15 03/07/25 01:56 1 TAB Pantoprazole Sodium 40 mg BID IV 03/06/25 22:00 03/07/25 09:03 40 MG Sucralfate 1 gm TID@0600,1130,2200 PO 03/06/25 22:00 03/07/25 11:48 1 GM Examination Patient lying in bed, in no acute distress General: Well-built, afebrile, palor, mucosae are moist Cardiovascular: Regular S1 and S2. No murmurs, gallops or rubs. No JVD elevation. No pedal edema Respiratory: Normal B/L air entry on room air. Clear lung sounds on auscultation Abdomen: Soft, nontender, nondistended, normoactive bowel sounds, no rebound tenderness, no organomegaly, no masses Genitourinary: Deferred MSK/skin: Mobilizes 4 limbs. Skin is dry and warm Neurological: No motor, no sensitive deficits, normal speech. Pupils are isocoric and reactive. Psych/Mental Status: A/Ox3 laboratory and microbiology Laboratory Tests 03/07/25 05:41 Test 03/07/25 05:41 Range/Units Serum Glucose 141 H 74-106 mg/dL Microbiology Date/Time Source Procedure Growth Status 03/04/25 04:30 Nose MRSA Screen - Final Complete Labs and/or images reviewed: Labs reviewed by me, Image(s) reviewed by me Problem List/Assessment/Plan Problem List/Assessment/Plan Likely upper GI bleed Right upper extremity DVT 3 cm sliding-type hiatal hernia Mild antral gastritis Colonic polyps, tubular adenomas Anemia likely chronic kidney disease 1+ internal hemorrhoids Mechanical fall Hyperkalemia ESRD on dialysis History of CAD with PTCA Chronic heart failure Diabetes mellitus type 2 DATE OF OPERATION: 02/02/25 PROCEDURE: Upper Endoscopy with biopsy. 1. 3 cm sliding-type hiatal hernia with slightly irregular squamocolumnar junction grade B erosive esophagitis and some whitish plaques extending into the distal 8 cm of the esophagus 2. Mild antral gastritis with pylorospasm otherwise normal examination up to the 2nd and 3rd part of the duodenum DATE OF OPERATION: 02/02/25 PROCEDURE: Colonoscopy with hot snare polypectomy. 1. 1.5 cm benign-appearing distal transverse colon polyp was seen and removed by hot snare polypectomy and the specimens were retrieved 2. There was a 2 cm tri lobed benign-appearing descending colon polyp that was seen and removed by hot snare polypectomy and the specimens were retrieved 3. Patient had a long tortuous and spastic colon 4. Trace to 1+ internal hemorrhoids otherwise normal examination up to the cecum no fresh or old blood in the GI tract at this time and good bowel prep Plan: Dr. Salinas: Patient recently underwent upper EGD and colonoscopy, and was diagnosed with subcentimeter hiatal hernia, mild antral gastritis. We recommend continuing medical management at this time. Pathology reports from prior endoscopy showed no dysplasia or malignancy, no Helicobacter pylori and duodenum and stomach. Esophageal biopsy showed squamous mucosa with orthokeratosis and parakeratosis, cardia type columnar mucosa with mild chronic inflammation Transverse colon polyp polypectomy was tubular adenoma without high-grade dysplasia or malignancy. Descending colon showed tubular adenoma without high- grade dysplasia or malignancy H&H stable, Continue Protonix 40 mg twice daily, Carafate TID Elevated ferritin likely acute phase reactant, otherwise iron profile history of chronic disease Right upper extremity venous duplex showed occlusive thrombus in the right IJ 03/03, hold anticoagulation at this time Head CT shows old lacunar infarcts Thank you for consulting GI Plan discussed with patient in which all questions have been answered Case discussed with Dr. Salinas Plan discussed with: Patient ELIEZER FERRARA RESIDENT Mar 07, 2025 16:38
[2025-03-08] VITALS (8 sets, daily range): BP systolic 130–150; BP diastolic 59–76; PULSE 73–89; RESP 17–20; TEMP 96.5–98.1; O2SAT 92–98
[2025-03-08 05:29] LABS: Hematocrit 22.7 % (41.0-53.0); Hemoglobin 7.5 g/dL (13.5-17.5); Mean Corpuscular Hemoglobin 31.5 pg (28.0-32.0); Mean Corpuscular Volume 95.4 fL (80.0-100.0); Nucleated Red Blood Cells % 0.3 %
[2025-03-08 05:45] LABS: Calcium 9.5 mg/dL (8.7-10.4); Chloride 98 mmol/L (98-107); Sodium 136 mmol/L (136-145)
[2025-03-08 05:46] LABS: Anion Gap 14 (5-15); Carbon Dioxide 24 mmol/L (20-31)
[2025-03-08 05:52] LABS: BUN/Creatinine Ratio 9.8 (10.0-20.0)
[2025-03-08 05:53] LABS: Blood Urea Nitrogen 74 mg/dL (9-23); Glucose 143 mg/dL (74-106)
[2025-03-08 05:55] LABS: Potassium 6.0 mmol/L (3.5-5.1)
[2025-03-08] MEDS ORDERED: SODIUM CHL 0.9% 1000 ML BAG XX ONE (07:00)
[2025-03-08] MEDS ORDERED: PANT40TA2 PO (10:40)
[2025-03-08] MEDS ORDERED: LIDO5CRE18 EX (10:40)
[2025-03-08] MEDS ORDERED: SUCR1SUS26 PO (10:40)
--- NOTE | 2025-03-08 10:42 | DVHPN2 ---
Progress Note Date Seen: Mar 08, 2025 Medical Necessity Reason Pt with a Central, PICC or Fol: No Subjective Patient reports: No new complaints Review of Systems: HEENT:Normal, CVS:Normal, RESPIRATORY:Normal, GI:Normal, :Normal, MSK:Normal, NEURO:Normal Objective vital signs Vital Sign Date Time Temp Pulse Resp B/P (MAP) Pulse Ox O2 Delivery O2 Flow Rate FiO2 03/08/25 09:00 96.5 81 17 150/76 (100) 93 96.5 03/07/25 20:00 Room Air* 0 21 Total Intake and Output 03/07/25 03/07/25 03/08/25 15:00 23:00 07:00 Intake Total 420 ml 1000 ml Output Total 0 ml Balance 420 ml 1000 ml medications Current Medications Medications Dose Ordered Sig/Caroline Route Start Time Stop Time Status Last Admin Dose Admin Sodium Chloride 10 ml Q8HR IV 03/03/25 14:00 03/08/25 05:39 10 ML Docusate Sodium 100 mg BIDPRN PRN PO 03/03/25 12:00 03/08/25 07:30 100 MG Acetaminophen 650 mg Q6HP PRN PO 03/03/25 12:00 Ondansetron HCl 4 mg Q4HP PRN IV 03/03/25 12:00 Metoprolol Succinate 50 mg DAILY PO 03/04/25 10:00 03/07/25 09:02 50 MG Atorvastatin Calcium 40 mg HS PO 03/03/25 22:00 03/07/25 21:16 40 MG Patient Own Medication 1 cap DAILY OR 03/04/25 10:00 UNV Hydralazine HCl 100 mg TID PO 03/03/25 14:00 03/08/25 05:39 100 MG Nifedipine 90 mg DAILY PO 03/04/25 10:00 03/07/25 09:00 90 MG Sevelamer HCl 3,200 mg TIDWM PO 03/03/25 18:00 03/08/25 09:22 3,200 MG Diagnostic Test (Pha) 1 strip ACHS 03/03/25 17:00 03/08/25 05:41 1 STRIP Insulin Human Regular ACHS SC 03/03/25 17:00 03/07/25 21:15 2 UNITS Dextrose 50 ml UD PRN IV 03/03/25 12:00 Folic Acid 1 mg DAILY PO 03/03/25 15:00 03/07/25 09:01 1 MG Pyridoxine HCl 50 mg DAILY PO 03/03/25 15:00 03/07/25 11:08 50 MG Lidocaine HCl 1 applic Q8HP PRN TOP 03/04/25 11:45 03/07/25 11:48 1 APPLIC Lactulose 30 ml DAILYPRN PRN PO 03/04/25 16:45 03/07/25 14:44 30 ML Acetaminophen/ Hydrocodone Bitart 1 tab Q6HP PRN PO 03/05/25 11:15 03/07/25 21:18 1 TAB Pantoprazole Sodium 40 mg BID IV 03/06/25 22:00 03/07/25 21:15 40 MG Sucralfate 1 gm TID@0600,1130,2200 PO 03/06/25 22:00 03/08/25 05:39 1 GM Ticagrelor 60 mg BID PO 03/08/25 22:00 UNV Examination: GENERAL:Normal, HEENT:Normal, NECK:Normal, LUNGS:Normal, CVS:Normal, ABDOMEN:Normal, MSK:Normal, SKIN:Normal, NEURO:Normal, :Normal laboratory and microbiology Laboratory Tests 03/08/25 05:11 Test 03/08/25 05:11 Range/Units Serum Glucose 143 H 74-106 mg/dL Microbiology Date/Time Source Procedure Growth Status 03/04/25 04:30 Nose MRSA Screen - Final Complete Problem List/Assessment/Plan Problem List/Assessment/Plan #1 fall with right rib pain #2 hyperkalemia: dialysis #3 esrd: on hemodialysis #4 htn #4 cad /ptca #5 right ij dvt #6 gi bleed: dc eliquis, brilinta; gi eval- conservative treatment per dr Salinas #7 chronic systolic/diastolic heart failure #8 s/p pacer #9 asthma #10 dm: ssi #11 anemia advance care planning- full code- time spent 19mins Plan discussed with: Patient My Orders My Orders Orders - DAMON BEASLEY MD Procedure Category Date Status Time Renal DIET 03/08/25 Transmitted Standard(2gna,3gk,Lopho) Lunch Ticagrelor (Brilinta) PHA 03/08/25 Logged 22:00 Basic Metabolic Panel LAB 03/09/25 Verified 06:00 Complete Blood Count LAB 03/09/25 Verified 06:00 Date of Service: Mar 08, 2025 Billing Provider: DAMON BEASLEY MD Common Visit Codes: [id number] INP/OBS CARE(HIGH) DAMON BEASLEY MD Mar 08, 2025 10:41
--- NOTE | 2025-03-08 12:02 | DVHPN2 ---
Progress Note Date Seen: Mar 08, 2025 Resident Creating Document: ELIEZER FERRARA RESIDENT Medical Necessity Reason Pt with a Central, PICC or Fol: No Subjective Review of Systems 55-year-old male presents to the ER with a prior medical history of anxiety, asthma, CAD, CHF, depression, diabetes, high lipids, hypertension, [place], ESRD, DVT RUE: Surgical history with a pacemaker, PTCA and the chief complaint of a fall. Patient reports on falling two days ago and states that when he breathes in he has bright rib pain as well as having posterior head pain. Patient reports he was walking and fell in the backyard due to unsteady ground from the [place]. Patient notes on coming to the ER last night and was told by nurses to go to his dialysis Center and come back for which he did patient currently has a blurry vision as well. Denies any other symptoms at this time. Denies chills, fever, N/V/D, SOB, CP. No other associated symptoms, modifiers, recent injuries or sick contacts present at this time. PAST MEDICAL HISTORY: Anxiety, Asthma, CAD, CHF, Depression, DM, ESRD, High Lipids, HTN, [place] Past Medical History (Other): DVT to the RUE Surgical History: Pacemaker, PTCA 03/06-Patient seen and examined at bedside. Denies abdominal pain, nausea, vomiting, diarrhea. Reports dark black stools for 1 day. Stool occult positive. 03/07-patient seen and examined. Hemoglobin stable at 8. 03/08-patient denies experiencing any more melena. Ticagrelor reintroduced, undergoing HD. Objective vital signs Vital Sign Date Time Temp Pulse Resp B/P (MAP) Pulse Ox O2 Delivery O2 Flow Rate FiO2 03/08/25 11:44 150/76 03/08/25 11:43 81 03/08/25 09:00 96.5 17 93 96.5 03/08/25 08:00 Room Air* 0 21 Total Intake and Output 03/07/25 03/07/25 03/08/25 15:00 23:00 07:00 Intake Total 420 ml 1000 ml Output Total 0 ml Balance 420 ml 1000 ml medications Current Medications Medications Dose Ordered Sig/Caroline Route Start Time Stop Time Status Last Admin Dose Admin Sodium Chloride 10 ml Q8HR IV 03/03/25 14:00 03/08/25 05:39 10 ML Docusate Sodium 100 mg BIDPRN PRN PO 03/03/25 12:00 03/08/25 07:30 100 MG Acetaminophen 650 mg Q6HP PRN PO 03/03/25 12:00 Ondansetron HCl 4 mg Q4HP PRN IV 03/03/25 12:00 Metoprolol Succinate 50 mg DAILY PO 03/04/25 10:00 03/08/25 11:43 50 MG Atorvastatin Calcium 40 mg HS PO 03/03/25 22:00 03/07/25 21:16 40 MG Patient Own Medication 1 cap DAILY OR 03/04/25 10:00 UNV Hydralazine HCl 100 mg TID PO 03/03/25 14:00 03/08/25 05:39 100 MG Nifedipine 90 mg DAILY PO 03/04/25 10:00 03/08/25 11:44 90 MG Sevelamer HCl 3,200 mg TIDWM PO 03/03/25 18:00 03/08/25 09:22 3,200 MG Diagnostic Test (Pha) 1 strip ACHS 03/03/25 17:00 03/08/25 11:41 1 STRIP Insulin Human Regular ACHS SC 03/03/25 17:00 03/07/25 21:15 2 UNITS Dextrose 50 ml UD PRN IV 03/03/25 12:00 Folic Acid 1 mg DAILY PO 03/03/25 15:00 03/08/25 11:42 1 MG Pyridoxine HCl 50 mg DAILY PO 03/03/25 15:00 03/08/25 10:00 50 MG Lidocaine HCl 1 applic Q8HP PRN TOP 03/04/25 11:45 03/08/25 11:54 1 APPLIC Lactulose 30 ml DAILYPRN PRN PO 03/04/25 16:45 03/07/25 14:44 30 ML Acetaminophen/ Hydrocodone Bitart 1 tab Q6HP PRN PO 03/05/25 11:15 03/07/25 21:18 1 TAB Sucralfate 1 gm TID@0600,1130,2200 PO 03/06/25 22:00 03/08/25 11:41 1 GM Ticagrelor 60 mg BID PO 03/08/25 22:00 Pantoprazole Sodium 40 mg BID@0600,1700 PO 03/08/25 17:00 Examination Patient lying in bed, in no acute distress General: Well-built, afebrile, palor, mucosae are moist Cardiovascular: Regular S1 and S2. No murmurs, gallops or rubs. No JVD elevation. No pedal edema Respiratory: Normal B/L air entry on room air. Clear lung sounds on auscultation Abdomen: Soft, nontender, nondistended, normoactive bowel sounds, no rebound tenderness, no organomegaly, no masses Genitourinary: Deferred MSK/skin: Mobilizes 4 limbs. Skin is dry and warm Neurological: No motor, no sensitive deficits, normal speech. Pupils are isocoric and reactive. Psych/Mental Status: A/Ox3 laboratory and microbiology Laboratory Tests 03/08/25 05:11 Test 03/08/25 05:11 Range/Units Serum Glucose 143 H 74-106 mg/dL Microbiology Date/Time Source Procedure Growth Status 03/04/25 04:30 Nose MRSA Screen - Final Complete Labs and/or images reviewed: Labs reviewed by me, Image(s) reviewed by me Problem List/Assessment/Plan Problem List/Assessment/Plan Likely upper GI bleed Right upper extremity DVT 3 cm sliding-type hiatal hernia Mild antral gastritis Colonic polyps, tubular adenomas Anemia likely chronic kidney disease 1+ internal hemorrhoids Mechanical fall Hyperkalemia ESRD on dialysis History of CAD with PTCA Chronic heart failure Diabetes mellitus type 2 DATE OF OPERATION: 02/02/25 PROCEDURE: Upper Endoscopy with biopsy. 1. 3 cm sliding-type hiatal hernia with slightly irregular squamocolumnar junction grade B erosive esophagitis and some whitish plaques extending into the distal 8 cm of the esophagus 2. Mild antral gastritis with pylorospasm otherwise normal examination up to the 2nd and 3rd part of the duodenum DATE OF OPERATION: 02/02/25 PROCEDURE: Colonoscopy with hot snare polypectomy. 1. 1.5 cm benign-appearing distal transverse colon polyp was seen and removed by hot snare polypectomy and the specimens were retrieved 2. There was a 2 cm tri lobed benign-appearing descending colon polyp that was seen and removed by hot snare polypectomy and the specimens were retrieved 3. Patient had a long tortuous and spastic colon 4. Trace to 1+ internal hemorrhoids otherwise normal examination up to the cecum no fresh or old blood in the GI tract at this time and good bowel prep Plan: Dr. Salinas: Patient recently underwent upper EGD and colonoscopy, and was diagnosed with subcentimeter hiatal hernia, mild antral gastritis. We recommend continuing medical management at this time. No acute GI intervention indicated at this time. Pathology reports from prior endoscopy showed no dysplasia or malignancy, no Helicobacter pylori and duodenum and stomach. Esophageal biopsy showed squamous mucosa with orthokeratosis and parakeratosis, cardia type columnar mucosa with mild chronic inflammation Transverse colon polyp polypectomy was tubular adenoma without high-grade dysplasia or malignancy. Descending colon showed tubular adenoma without high- grade dysplasia or malignancy H&H /downtrending, monitor, Continue Protonix 40 mg twice daily, Carafate TID Elevated ferritin likely acute phase reactant, otherwise iron profile history of chronic disease Right upper extremity venous duplex showed occlusive thrombus in the right IJ 03/03, hold anticoagulation at this time Head CT shows old lacunar infarcts Thank you for consulting GI Plan discussed with patient in which all questions have been answered Case discussed with Dr. Salinas Plan discussed with: Patient ELIEZER FERRARA RESIDENT Mar 08, 2025 12:02
[2025-03-08] MEDS: PANTOPRAZOLE 40 MG TAB PO SCH (16:38)
--- NOTE | 2025-03-08 16:48 | DVHPN2 ---
Progress Note - Dictate Date Seen: Mar 08, 2025 Medical Necessity Reason Pt with a Central, PICC or Fol: No Subjective no new symptoms vital signs Vital Sign Date Time Temp Pulse Resp B/P (MAP) Pulse Ox O2 Delivery O2 Flow Rate FiO2 03/08/25 12:53 146/62 03/08/25 12:26 97.7 89 19 92 97.7 03/08/25 08:00 Room Air* 0 21 Total Intake and Output 03/07/25 03/07/25 03/08/25 15:00 23:00 07:00 Intake Total 420 ml 1000 ml Output Total 0 ml Balance 420 ml 1000 ml medications Current Medications Medications Dose Ordered Sig/Caroline Route Start Time Stop Time Status Last Admin Dose Admin Sodium Chloride 10 ml Q8HR IV 03/03/25 14:00 03/08/25 12:51 10 ML Docusate Sodium 100 mg BIDPRN PRN PO 03/03/25 12:00 03/08/25 07:30 100 MG Acetaminophen 650 mg Q6HP PRN PO 03/03/25 12:00 Ondansetron HCl 4 mg Q4HP PRN IV 03/03/25 12:00 Metoprolol Succinate 50 mg DAILY PO 03/04/25 10:00 03/08/25 11:43 50 MG Atorvastatin Calcium 40 mg HS PO 03/03/25 22:00 03/07/25 21:16 40 MG Patient Own Medication 1 cap DAILY OR 03/04/25 10:00 UNV Hydralazine HCl 100 mg TID PO 03/03/25 14:00 03/08/25 12:53 100 MG Nifedipine 90 mg DAILY PO 03/04/25 10:00 03/08/25 11:44 90 MG Sevelamer HCl 3,200 mg TIDWM PO 03/03/25 18:00 03/08/25 16:45 3,200 MG Diagnostic Test (Pha) 1 strip ACHS 03/03/25 17:00 03/08/25 16:40 1 STRIP Insulin Human Regular ACHS SC 03/03/25 17:00 03/08/25 16:44 3 UNITS Dextrose 50 ml UD PRN IV 03/03/25 12:00 Folic Acid 1 mg DAILY PO 03/03/25 15:00 03/08/25 11:42 1 MG Pyridoxine HCl 50 mg DAILY PO 03/03/25 15:00 03/08/25 10:00 50 MG Lidocaine HCl 1 applic Q8HP PRN TOP 03/04/25 11:45 03/08/25 11:54 1 APPLIC Lactulose 30 ml DAILYPRN PRN PO 03/04/25 16:45 03/07/25 14:44 30 ML Acetaminophen/ Hydrocodone Bitart 1 tab Q6HP PRN PO 03/05/25 11:15 03/07/25 21:18 1 TAB Sucralfate 1 gm TID@0600,1130,2200 PO 03/06/25 22:00 03/08/25 11:41 1 GM Ticagrelor 60 mg BID PO 03/08/25 22:00 Pantoprazole Sodium 40 mg BID@0600,1700 PO 03/08/25 17:00 03/08/25 16:38 40 MG objective HEENT: No evidence of JVD, no oral ulcers. Pulmonary: Lungs are clear on auscultation bilaterally Cardiovascular S1-S2, no S3 or S4 Abdomen: Bowel sounds positive, soft no rebound tenderness Skin: No rash Neurological: Alert, oriented, no focal weakness Hemodialysis access positive bruit and thrill AV fistula laboratory and microbiology Laboratory Tests 03/08/25 05:11 Test 03/08/25 05:11 Range/Units Serum Glucose 143 H 74-106 mg/dL Assessment/Plan Assessment: 1. End-stage renal disease on hemodialysis TTS via AV fistula 2. Chest wall pain secondary to contusion 3. Syncope 4. Hypertension 5. Anemia of end-stage renal disease 6. Secondary hyperparathyroidism 7. Hyperkalemia managed with dialysis 8. CHF managed with dialysis 9. History of diskitis 10. DVT right upper extremity 11. Diabetes type 2 complicated with hypoglycemia Plan: s/p HD today () Net UF 3L Next HD on Wednesday Continue TTS Fluid restriction less than 1 L per day Javed , goal Hb: 10-11 g/dl Continue phosphate binders t.i.d. with each meal Continue antihypertensive meds Renal diet. low Na, K, and phosphorous diet Plan discussed with: Patient BHAVESH MCDONNELL MD Mar 08, 2025 16:48
[2025-03-08] MEDS: TICAGRELOR 60 MG TAB PO SCH (21:20)
[2025-03-08] MEDS: EPOETIN ALFA-EPBX 10,000 UNIT/1ML VIAL SC ONE (21:47)
[2025-03-09] VITALS (8 sets, daily range): BP systolic 125–157; BP diastolic 53–97; PULSE 73–87; RESP 14–18; TEMP 97.8–98.9; O2SAT 95–98
[2025-03-09 06:32] LABS: Hematocrit 23.6 % (41.0-53.0); Hemoglobin 7.7 g/dL (13.5-17.5); Mean Corpuscular Hemoglobin 31.0 pg (28.0-32.0); Mean Corpuscular Volume 95.3 fL (80.0-100.0); Nucleated Red Blood Cells % 0.0 %
--- NOTE | 2025-03-09 06:42 | DVHPN2 ---
Progress Note - Dictate Date Seen: Mar 09, 2025 Medical Necessity Reason Pt with a Central, PICC or Fol: No Subjective no new symptoms vital signs Vital Sign Date Time Temp Pulse Resp B/P (MAP) Pulse Ox O2 Delivery O2 Flow Rate FiO2 03/09/25 06:16 149/81 03/09/25 05:00 98.7 86 17 97 98.7 03/08/25 20:00 Room Air* 0 21 Total Intake and Output 03/08/25 03/08/25 03/09/25 15:00 23:00 07:00 Intake Total 500 ml 400 ml Output Total 1 ml Balance 500 ml 399 ml medications Current Medications Medications Dose Ordered Sig/Caroline Route Start Time Stop Time Status Last Admin Dose Admin Sodium Chloride 10 ml Q8HR IV 03/03/25 14:00 03/09/25 06:17 10 ML Docusate Sodium 100 mg BIDPRN PRN PO 03/03/25 12:00 03/08/25 21:44 100 MG Acetaminophen 650 mg Q6HP PRN PO 03/03/25 12:00 Ondansetron HCl 4 mg Q4HP PRN IV 03/03/25 12:00 Metoprolol Succinate 50 mg DAILY PO 03/04/25 10:00 03/08/25 11:43 50 MG Atorvastatin Calcium 40 mg HS PO 03/03/25 22:00 03/08/25 21:22 40 MG Patient Own Medication 1 cap DAILY OR 03/04/25 10:00 UNV Hydralazine HCl 100 mg TID PO 03/03/25 14:00 03/09/25 06:16 100 MG Nifedipine 90 mg DAILY PO 03/04/25 10:00 03/08/25 11:44 90 MG Sevelamer HCl 3,200 mg TIDWM PO 03/03/25 18:00 03/08/25 16:45 3,200 MG Diagnostic Test (Pha) 1 strip ACHS 03/03/25 17:00 03/09/25 06:17 1 STRIP Insulin Human Regular ACHS SC 03/03/25 17:00 03/09/25 06:25 2 UNITS Dextrose 50 ml UD PRN IV 03/03/25 12:00 Folic Acid 1 mg DAILY PO 03/03/25 15:00 03/08/25 11:42 1 MG Pyridoxine HCl 50 mg DAILY PO 03/03/25 15:00 03/08/25 10:00 50 MG Lidocaine HCl 1 applic Q8HP PRN TOP 03/04/25 11:45 03/08/25 21:16 1 APPLIC Lactulose 30 ml DAILYPRN PRN PO 03/04/25 16:45 03/07/25 14:44 30 ML Acetaminophen/ Hydrocodone Bitart 1 tab Q6HP PRN PO 03/05/25 11:15 03/09/25 00:07 1 TAB Sucralfate 1 gm TID@0600,1130,2200 PO 03/06/25 22:00 03/09/25 06:16 1 GM Ticagrelor 60 mg BID PO 03/08/25 22:00 03/08/25 21:20 60 MG Pantoprazole Sodium 40 mg BID@0600,1700 PO 03/08/25 17:00 03/09/25 06:16 40 MG objective HEENT: No evidence of JVD, no oral ulcers. Pulmonary: Lungs are clear on auscultation bilaterally Cardiovascular S1-S2, no S3 or S4 Abdomen: Bowel sounds positive, soft no rebound tenderness Skin: No rash Neurological: Alert, oriented, no focal weakness Hemodialysis access positive bruit and thrill AV fistula laboratory and microbiology Laboratory Tests 03/09/25 05:47 Test 03/09/25 05:47 Range/Units Serum Glucose Pending Assessment/Plan Assessment: 1. End-stage renal disease on hemodialysis TTS via AV fistula 2. Chest wall pain secondary to contusion 3. Syncope 4. Hypertension 5. Anemia of end-stage renal disease 6. Secondary hyperparathyroidism 7. Hyperkalemia managed with dialysis 8. CHF managed with dialysis 9. History of diskitis 10. DVT right upper extremity 11. Diabetes type 2 complicated with hypoglycemia Plan: s/p HD yesterday () Net UF 3L Next HD on Wednesday Continue TTS Fluid restriction less than 1 L per day Javed , goal Hb: 10-11 g/dl Continue phosphate binders t.i.d. with each meal Continue antihypertensive meds Renal diet. low Na, K, and phosphorous diet Plan discussed with: Patient BHAVESH MCDONNELL MD Mar 09, 2025 06:42
[2025-03-09 06:49] LABS: BUN/Creatinine Ratio 7.1 (10.0-20.0)
[2025-03-09 06:54] LABS: Anion Gap 14 (5-15); Calcium 10.3 mg/dL (8.7-10.4); Carbon Dioxide 28 mmol/L (20-31); Sodium 139 mmol/L (136-145)
[2025-03-09 06:55] LABS: Blood Urea Nitrogen 45 mg/dL (9-23); Chloride 97 mmol/L (98-107); Glucose 173 mg/dL (74-106); Potassium 5.1 mmol/L (3.5-5.1)
--- NOTE | 2025-03-09 11:23 | DVHPN2 ---
Reviewed: H&P Changes from previous H/P or p: No Changes Objective Vitals Vital Signs Date Time Temp Pulse Resp B/P (MAP) Pulse Ox O2 Delivery O2 Flow Rate FiO2 03/09/25 09:29 157/88 03/09/25 09:29 80 03/09/25 09:00 98.5 14 96 98.5 03/08/25 20:00 Room Air* 0 21 Intake/Output Intake and Output 03/09/25 07:00 Intake Total 900 ml Output Total 1 ml Balance 899 ml Intake Oral 900 ml Output Urine Total 1 ml # Bowel Movements 1 General Appearance: Alert, Oriented X3 HEENT: Atraumatic Cardiovascular: Regular rate, Normal S1, Normal S2 Abdomen: Normal bowel sounds Medications Current Medications Medications Dose Ordered Sig/Caroline Route Start Time Stop Time Status Last Admin Dose Admin Sodium Chloride 10 ml Q8HR IV 03/03/25 14:00 03/09/25 06:17 10 ML Docusate Sodium 100 mg BIDPRN PRN PO 03/03/25 12:00 03/08/25 21:44 100 MG Acetaminophen 650 mg Q6HP PRN PO 03/03/25 12:00 Ondansetron HCl 4 mg Q4HP PRN IV 03/03/25 12:00 Metoprolol Succinate 50 mg DAILY PO 03/04/25 10:00 03/09/25 09:29 50 MG Atorvastatin Calcium 40 mg HS PO 03/03/25 22:00 03/08/25 21:22 40 MG Patient Own Medication 1 cap DAILY OR 03/04/25 10:00 UNV Hydralazine HCl 100 mg TID PO 03/03/25 14:00 03/09/25 06:16 100 MG Nifedipine 90 mg DAILY PO 03/04/25 10:00 03/09/25 09:29 90 MG Sevelamer HCl 3,200 mg TIDWM PO 03/03/25 18:00 03/09/25 09:28 3,200 MG Diagnostic Test (Pha) 1 strip ACHS 03/03/25 17:00 03/09/25 06:17 1 STRIP Insulin Human Regular ACHS SC 03/03/25 17:00 03/09/25 06:25 2 UNITS Dextrose 50 ml UD PRN IV 03/03/25 12:00 Folic Acid 1 mg DAILY PO 03/03/25 15:00 03/09/25 09:28 1 MG Pyridoxine HCl 50 mg DAILY PO 03/03/25 15:00 03/09/25 09:28 50 MG Lidocaine HCl 1 applic Q8HP PRN TOP 03/04/25 11:45 03/08/25 21:16 1 APPLIC Lactulose 30 ml DAILYPRN PRN PO 03/04/25 16:45 03/07/25 14:44 30 ML Acetaminophen/ Hydrocodone Bitart 1 tab Q6HP PRN PO 03/05/25 11:15 03/09/25 00:07 1 TAB Sucralfate 1 gm TID@0600,1130,2200 PO 03/06/25 22:00 03/09/25 06:16 1 GM Ticagrelor 60 mg BID PO 03/08/25 22:00 03/09/25 09:28 60 MG Pantoprazole Sodium 40 mg BID@0600,1700 PO 03/08/25 17:00 03/09/25 06:16 40 MG Laboratory Results Laboratory Tests 03/09/25 05:47 Chemistry Test 03/09/25 05:47 Calcium Level 10.3 mg/dL (8.7-10.4) Microbiology Microbiology Date/Time Source Procedure Growth Status 03/04/25 04:30 Nose MRSA Screen - Final Complete Labs and/or images reviewed: Labs reviewed by me, Image(s) reviewed by me Assessment/Plan Assessment/Plan Covering for Dr. Cartagena #1 fall with right rib pain #2 hyperkalemia: dialysis #3 esrd: on hemodialysis #4 htn #4 cad /ptca #5 right ij dvt #6 gi bleed: ulices sweeney; gi eval- conservative treatment per dr Salinas #7 chronic systolic/diastolic heart failure #8 s/p pacer #9 asthma #10 dm: ssi #11 anemia Time Spent 70 minutes Advanced care planning time 20 minutes Patient is full code Plan discussed with: Patient Date of Service: Mar 09, 2025 Billing Provider: RONEN ALVARES MD Common Visit Codes: 17538-DVO/OBS DISCH DAY <30MIN RONEN ALVARES MD Mar 09, 2025 11:23
--- NOTE | 2025-03-09 14:53 | DVHPN2 ---
Progress Note Date Seen: Mar 09, 2025 Resident Creating Document: ELIEZER FERRARA RESIDENT Medical Necessity Reason Pt with a Central, PICC or Fol: No Subjective Review of Systems Patient reports feeling fine. Denies bloody bowel movements. Objective vital signs Vital Sign Date Time Temp Pulse Resp B/P (MAP) Pulse Ox O2 Delivery O2 Flow Rate FiO2 03/09/25 14:30 145/76 03/09/25 13:00 97.8 73 14 96 97.8 03/08/25 20:00 Room Air* 0 21 Total Intake and Output 03/08/25 03/08/25 03/09/25 15:00 23:00 07:00 Intake Total 500 ml 400 ml Output Total 1 ml Balance 500 ml 399 ml medications Current Medications Medications Dose Ordered Sig/Caroline Route Start Time Stop Time Status Last Admin Dose Admin Sodium Chloride 10 ml Q8HR IV 03/03/25 14:00 03/09/25 06:17 10 ML Docusate Sodium 100 mg BIDPRN PRN PO 03/03/25 12:00 03/08/25 21:44 100 MG Acetaminophen 650 mg Q6HP PRN PO 03/03/25 12:00 Ondansetron HCl 4 mg Q4HP PRN IV 03/03/25 12:00 Metoprolol Succinate 50 mg DAILY PO 03/04/25 10:00 03/09/25 09:29 50 MG Atorvastatin Calcium 40 mg HS PO 03/03/25 22:00 03/08/25 21:22 40 MG Patient Own Medication 1 cap DAILY OR 03/04/25 10:00 UNV Hydralazine HCl 100 mg TID PO 03/03/25 14:00 03/09/25 14:30 100 MG Nifedipine 90 mg DAILY PO 03/04/25 10:00 03/09/25 09:29 90 MG Sevelamer HCl 3,200 mg TIDWM PO 03/03/25 18:00 03/09/25 12:21 3,200 MG Diagnostic Test (Pha) 1 strip ACHS 03/03/25 17:00 03/09/25 12:21 1 STRIP Insulin Human Regular ACHS SC 03/03/25 17:00 03/09/25 12:23 2 UNITS Dextrose 50 ml UD PRN IV 03/03/25 12:00 Folic Acid 1 mg DAILY PO 03/03/25 15:00 03/09/25 09:28 1 MG Pyridoxine HCl 50 mg DAILY PO 03/03/25 15:00 03/09/25 09:28 50 MG Lidocaine HCl 1 applic Q8HP PRN TOP 03/04/25 11:45 03/09/25 12:21 1 APPLIC Lactulose 30 ml DAILYPRN PRN PO 03/04/25 16:45 03/09/25 12:21 30 ML Acetaminophen/ Hydrocodone Bitart 1 tab Q6HP PRN PO 03/05/25 11:15 03/09/25 00:07 1 TAB Sucralfate 1 gm TID@0600,1130,2200 PO 03/06/25 22:00 03/09/25 12:21 1 GM Ticagrelor 60 mg BID PO 03/08/25 22:00 03/09/25 09:28 60 MG Pantoprazole Sodium 40 mg BID@0600,1700 PO 03/08/25 17:00 03/09/25 06:16 40 MG Examination Patient lying in bed, in no acute distress General: Well-built, afebrile, palor, mucosae are moist Cardiovascular: Regular S1 and S2. No murmurs, gallops or rubs. No JVD elevation. No pedal edema Respiratory: Normal B/L air entry on room air. Clear lung sounds on auscultation Abdomen: Soft, nontender, nondistended, normoactive bowel sounds, no rebound tenderness, no organomegaly, no masses Genitourinary: Deferred MSK/skin: Mobilizes 4 limbs. Skin is dry and warm Neurological: No motor, no sensitive deficits, normal speech. Pupils are isocoric and reactive. Psych/Mental Status: A/Ox3 laboratory and microbiology Laboratory Tests 03/09/25 05:47 Test 03/09/25 05:47 Range/Units Serum Glucose 173 H 74-106 mg/dL Microbiology Date/Time Source Procedure Growth Status 03/04/25 04:30 Nose MRSA Screen - Final Complete Labs and/or images reviewed: Labs reviewed by me, Image(s) reviewed by me Problem List/Assessment/Plan Problem List/Assessment/Plan Likely upper GI bleed Right upper extremity DVT 3 cm sliding-type hiatal hernia Mild antral gastritis Colonic polyps, tubular adenomas Anemia likely chronic kidney disease 1+ internal hemorrhoids Mechanical fall Hyperkalemia ESRD on dialysis History of CAD with PTCA Chronic heart failure Diabetes mellitus type 2 DATE OF OPERATION: 02/02/25 PROCEDURE: Upper Endoscopy with biopsy. 1. 3 cm sliding-type hiatal hernia with slightly irregular squamocolumnar junction grade B erosive esophagitis and some whitish plaques extending into the distal 8 cm of the esophagus 2. Mild antral gastritis with pylorospasm otherwise normal examination up to the 2nd and 3rd part of the duodenum DATE OF OPERATION: 02/02/25 PROCEDURE: Colonoscopy with hot snare polypectomy. 1. 1.5 cm benign-appearing distal transverse colon polyp was seen and removed by hot snare polypectomy and the specimens were retrieved 2. There was a 2 cm tri lobed benign-appearing descending colon polyp that was seen and removed by hot snare polypectomy and the specimens were retrieved 3. Patient had a long tortuous and spastic colon 4. Trace to 1+ internal hemorrhoids otherwise normal examination up to the cecum no fresh or old blood in the GI tract at this time and good bowel prep Plan: Dr. Salinas: Patient recently underwent upper EGD and colonoscopy, and was diagnosed with subcentimeter hiatal hernia, mild antral gastritis. We recommend continuing medical management at this time. No acute GI intervention indicated at this time. Pathology reports from prior endoscopy showed no dysplasia or malignancy, no Helicobacter pylori and duodenum and stomach. Esophageal biopsy showed squamous mucosa with orthokeratosis and parakeratosis, cardia type columnar mucosa with mild chronic inflammation Transverse colon polyp polypectomy was tubular adenoma without high-grade dysplasia or malignancy. Descending colon showed tubular adenoma without high- grade dysplasia or malignancy H&H /downtrending, monitor, Continue Protonix 40 mg twice daily, Carafate TID Elevated ferritin likely acute phase reactant, otherwise iron profile history of chronic disease Right upper extremity venous duplex showed occlusive thrombus in the right IJ 03/03, hold anticoagulation at this time Head CT shows old lacunar infarcts Thank you for consulting GI Plan discussed with patient in which all questions have been answered Case discussed with Dr. Salinas Plan discussed with: Patient ELIEZER FERRARA RESIDENT Mar 09, 2025 14:53
[2025-03-09] MEDS: ACETAMINOPHEN 325 MG TAB PO PRN (21:39)
[2025-03-10 01:00] VITALS: BP 133/78; PULSE 82; RESP 17; TEMP 97.4; O2SAT 96
[2025-03-10 05:00] VITALS: BP 103/57; PULSE 80; RESP 18; TEMP 98.1; O2SAT 94
[2025-03-10 08:00] VITALS: PULSE 88
[2025-03-10 09:00] VITALS: BP 164/96; PULSE 82; RESP 19; TEMP 98.1; O2SAT 98
[2025-03-10] MEDS ORDERED: TICA90TA PO (09:21)
[2025-03-10] MEDS ORDERED: METO25TA93 PO (09:21)
[2025-03-10] MEDS ORDERED: HYDR-4798 PO (09:21)
[2025-03-10] MEDS ORDERED: SEVE800T7 PO (09:21)
--- NOTE | 2025-03-10 09:28 | DVHDS2 ---
Discharge Summary Date of Admission Mar 03, 2025 at 11:51 Date of Discharge: Mar 10, 2025 Admitting Diagnosis Fall injury Wounds: Fall injury Labs/Diagnostic Data: Laboratory Results Test 03/10/25 05:45 03/09/25 05:47 03/06/25 06:00 03/05/25 17:40 POC Glucose 141 mg/dl (70-106) White Blood Count 4.1 10^3/uL (4.4-10.8) Red Blood Count 2.47 10^6/uL (4.5-5.90) Hemoglobin 7.7 g/dL (13.5-17.5) Hematocrit 23.6 % (41.0-53.0) Mean Corpuscular Volume 95.3 fL (80.0-100.0) Mean Corpuscular Hemoglobin 31.0 pg (28.0-32.0) Mean Corpuscular Hemoglobin Concent 32.6 g/dL (32.0-36.0) Red Cell Distribution Width 15.9 % (11.8-14.3) Platelet Count 192 10^3/uL (140-450) Mean Platelet Volume 8.2 fL (6.9-10.8) Neutrophils (%) (Auto) 70.8 % (37.0-80.0) Lymphocytes (%) (Auto) 12.6 % (10.0-50.0) Monocytes (%) (Auto) 11.3 % (0.0-12.0) Eosinophils (%) (Auto) 4.3 % (0.0-7.0) Basophils (%) (Auto) 1.0 % (0.0-2.0) Neutrophils # (Auto) 2.9 10 ^3/uL (1.6-8.6) Lymphocytes # (Auto) 0.5 10 ^3/uL (0.4-5.4) Monocytes # (Auto) 0.5 10 ^3/uL (0-1.3) Eosinophils # (Auto) 0.2 10 ^3/uL (0-0.8) Basophils # (Auto) 0 10 ^3/uL (0-0.2) Nucleated Red Blood Cells 0.0 % Sodium Level 139 mmol/L (136-145) Potassium Level 5.1 mmol/L (3.5-5.1) Chloride Level 97 mmol/L (98-107) Carbon Dioxide Level 28 mmol/L (20-31) Anion Gap 14 (5-15) Blood Urea Nitrogen 45 mg/dL (9-23) Creatinine 6.30 mg/dL (0.700-1.30) Glomerular Filtration Rate Calc 10 mL/min (>90) BUN/Creatinine Ratio 7.1 (10.0-20.0) Serum Glucose 173 mg/dL (74-106) Calcium Level 10.3 mg/dL (8.7-10.4) Total Bilirubin < 0.2 mg/dL (0.2-1.0) Aspartate Amino Transferase (AST) 14 U/L (13-40) Alanine Aminotransferase (ALT) < 9 U/L (7-40) Alkaline Phosphatase 136 U/L (46-116) Total Protein 7.1 g/dL (5.7-8.2) Albumin 3.9 g/dL (3.2-4.8) Stool Occult Blood Positive (Negative) Stool Occult Blood Sample #3 (Negative) Test 03/05/25 05:24 03/03/25 11:48 Iron Level 41 ug/dL (65-175) Total Iron Binding Capacity 196 ug/dL (250-425) Percent Iron Saturation 20.9 % (20-55) Ferritin 351.5 ng/mL (22-322) Hepatitis A IgM Antibody Negative Hepatitis B Surface Antigen Negative (Negative) Hepatitis B Core IgM Antibody Negative (Negative) Hepatitis C Antibody Negative (Negative) Prothrombin Time 10.9 sec (9.3-11.8) Prothrombin Time INR 1.03 (0.9-1.15) Other Laboratory Tests 03/09/25 05:47 Brief Hx & Hospital Course: Ureteral his multiple medical problems including ESRD on hemodialysis hypertension coronary artery disease status post stents right internal jugular DVT GI bleed chronic CHF since status post pacemaker asthma diabetes anemia had a mechanical fall and came in complaining of chest wall pain x-ray was negative for broken ribs chest wall contusion only. Received hemodialysis and other appropriate treatment for comorbid conditions being discharged home prescriptions for his routine [facility] he will follow up with his primary Dr and chief i dispatcher Consults/Reason for consult Nephrology Operations or Procedures Chest x-ray Regular dialysis Condition at Discharge: Fair Final Diagnosis/Problems List #1 fall with right rib pain #2 hyperkalemia: dialysis #3 esrd: on hemodialysis #4 htn #4 cad /ptca #5 right ij dvt #6 gi bleed: dc eliqumerry brilinta; gi eval- conservative treatment per dr Salinas #7 chronic systolic/diastolic heart failure #8 s/p pacer #9 asthma #10 dm: ssi #11 anemia Discharge Disposition: Home Discharge Instruct/Medications Diet: Renal Activity: Light activity Follow Up/Referral: Follow up with your primary Dr and chief i dispatcher for dialysis Medications: Transmitted to pharmacy Scheduled Amlodipine Besylate (Amlodipine Besylate), 1 TAB PO DAILY, (Reported) Apixaban Base (Eliquis), 5 MG PO BID Atorvastatin Calcium (Atorvastatin Calcium), 1 TAB PO DAILY Carvedilol (Carvedilol), 1 TAB PO BID, (Reported) Folic Acid-Vitamin B6-Vitamin (B Complex/Folic Acid), 1 CAP OR DAILY Hydralazine Hcl (Hydralazine Hcl), 1 TAB PO TID, (Reported) Hydrocodone-Acetaminophen (Hydrocodone Bitartrate/AC 10-325 mg), 1 TAB PO QID, (Reported) Hydrocodone-Acetaminophen (Hydrocodone Bitartrate/AC 10-325 mg), 1 TAB PO QID Insulin Glargine (Lantus Solostar), 100 UNIT SC QPM Insulin Lispro (Insulin Lispro), 100 UNIT IJ TID Metoprolol Succinate (Metoprolol Succinate Er), 1 TAB PO DAILY Metoprolol Succinate (Metoprolol Succinate Er), 1 TAB PO DAILY Nifedipine (Nifedipine Er), 1 TAB PO DAILY Pantoprazole Sodium Sesquihydr (Protonix), 40 MG PO BID Patients Own Medication (Patients Own Medication), 1 PATCH TD DAILY, (Reported) Sevelamer Carbonate (Sevelamer Carbonate), 4 TAB PO TID, (Reported) Sevelamer Hydrochloride (Renagel), 3,200 MG PO TID Sucralfate (Carafate Susp), 10 ML PO QID Ticagrelor Base (Brilinta), 60 MG PO BID Ticagrelor Base (Brilinta), 90 MG PO BID Trazodone Hcl (Trazodone Hcl), 1 TAB PO DAILY, (Reported) Scheduled PRN Acetaminophen (Acetaminophen), 650 MG PO Q6HP PRN Albuterol Sulfate (Albuterol Sulfate), 1 VIAL NEB Q4HPRN PRN Diphenhydramine-Zinc Acetate (Benadryl Cream), 1 APPLIC TOP Q6HPRN PRN Lidocaine (Anorectal) (Lidocaine), 5 % EX PRN PRN Lorazepam (Lorazepam), 1 TAB PO BIDPRN PRN for ANXIETY, (Reported) 39 (Time taken for discharge summary 39 minutes) Discharge Statement: "Patient was advised to return to the ER or call 911 if any headaches, dizziness, shortness of breath, chest pain, abdominal pain, bleeding, fevers, or worsening of medical condition. Patient was counseled about treatment plan, medications, possible side effects, patientverbalized understanding. All questions were answered to the best of my ability. This discharge took greater then 30 minutes in planning, reviewing documentation, counseling the patient, and discussing with other team members." ASSESSMENT ASSESSMENT Hospital Course #1 fall with right rib pain #2 hyperkalemia: dialysis #3 esrd: on hemodialysis #4 htn #4 cad /ptca #5 right ij dvt #6 gi bleed: ulices sweeney; gi eval- conservative treatment per dr Salinas #7 chronic systolic/diastolic heart failure #8 s/p pacer #9 asthma #10 dm: ssi #11 anemia Date of Service: Mar 10, 2025 Billing Provider: RONEN ALVARES MD Common Visit Codes: 61701-LKJ/OBS DISCH DAY >30min RONEN ALVARES MD Mar 10, 2025 09:28
[2025-03-10 11:07] VITALS: BP 103/57; PULSE 80; TEMP 36.7
--- NOTE | 2025-03-10 20:09 | DVHPN2 ---
Progress Note - Dictate Date Seen: Mar 10, 2025 Medical Necessity Reason Pt with a Central, PICC or Fol: No Subjective No new complaints Patient is resting comfortably H&H stable at 7.7 vital signs Vital Sign Date Time Temp Pulse Resp B/P (MAP) Pulse Ox O2 Delivery O2 Flow Rate FiO2 03/10/25 11:07 36.7 80 03/10/25 09:00 19 164/96 (118) 98 03/10/25 07:50 Room Air* 0 21 Total Intake and Output 03/09/25 03/09/25 03/10/25 15:00 23:00 07:00 Intake Total 460 ml 340 ml Output Total 0 ml 0 ml Balance 460 ml 340 ml medications Current Medications Medications Dose Ordered Sig/Caroline Route Start Time Stop Time Status Last Admin Dose Admin Patient Own Medication 1 cap DAILY OR 03/04/25 10:00 UNV objective General: Well-built, afebrile, palor, mucosae are moist Cardiovascular: Regular S1 and S2. No murmurs, gallops or rubs. No JVD elevation. No pedal edema Respiratory: Normal B/L air entry on room air. Clear lung sounds on auscultation Abdomen: Soft, nontender, nondistended, normoactive bowel sounds, no rebound tenderness, no organomegaly, no masses Genitourinary: Deferred MSK/skin: Mobilizes 4 limbs. Skin is dry and warm Neurological: No motor, no sensitive deficits, normal speech. Pupils are isocoric and reactive. Psych/Mental Status: A/Ox3 laboratory and microbiology Laboratory Tests 03/09/25 05:47 Test 03/09/25 05:47 Range/Units Serum Glucose 173 H 74-106 mg/dL Problems(with codes): (1) End-stage renal disease needing dialysis (2) Chest wall pain (3) Syncope and collapse (4) Anemia of chronic disease Prognosis Plan Continue Protonix 40 mg p.o. q.a.m. Carafate 1 g p.o. q.h.s. Lifestyle and dietary modifications for GERD Avoid aspirin and NSAIDs Discharge planning is in progress Patient did not want any further endoscopy at this time as he had recently had them done Patient stated he would return to the ER if he had any recurrent symptoms of bleeding Plan discussed with: Patient, Other (Dr Lopez) LEENA GRANT MD Mar 10, 2025 20:09
== END 2025-03-10 11:45 | disposition home or self-care (01) | DRG 384 ==
LOC: ER 08:53 → OVERFLOW 11:51 → TELE-EAST 19:00
PROVIDERS: ADMIT Internal Medicine; ATTEND Internal Medicine
PROC: 5A1D70Z Performance of Urinary Filtration, Intermittent, Less than 6 Hours Per Day (ICD-10-PCS; principal; 2025-03-05)
PROC: 5A1D70Z Performance of Urinary Filtration, Intermittent, Less than 6 Hours Per Day (ICD-10-PCS; 2025-03-06)
DX: S20.211A Contusion of right front wall of thorax, initial encounter (principal); I13.2 Hypertensive heart and chronic kidney disease with heart failure and with stage 5 chronic kidney disease, or end stage renal disease; I82.C11 Acute embolism and thrombosis of right internal jugular vein; N18.6 End stage renal disease; N25.81 Secondary hyperparathyroidism of renal origin; D63.1 Anemia in chronic kidney disease; E11.649 Type 2 diabetes mellitus with hypoglycemia without coma; J45.909 Unspecified asthma, uncomplicated; F32.A Depression, unspecified; I50.42 Chronic combined systolic (congestive) and diastolic (congestive) heart failure; E87.5 Hyperkalemia; I25.10 Atherosclerotic heart disease of native coronary artery without angina pectoris; F41.9 Anxiety disorder, unspecified; E78.5 Hyperlipidemia, unspecified; E11.22 Type 2 diabetes mellitus with diabetic chronic kidney disease; W18.39XA Other fall on same level, initial encounter; Y93.01 Activity, walking, marching and hiking; I25.2 Old myocardial infarction; Z95.5 Presence of coronary angioplasty implant and graft; Z95.0 Presence of cardiac pacemaker; Z86.718 Personal history of other venous thrombosis and embolism; Z82.49 Family history of ischemic heart disease and other diseases of the circulatory system; Z83.3 Family history of diabetes mellitus; Z82.61 Family history of arthritis; Y92.89 Other specified places as the place of occurrence of the external cause; Y99.8 Other external cause status
CPT/HCPCS: 36415; 70450; 71045; 80048; 80053; 80074; 82270; 82728; 82962; 83540; 83550; 85025; 85610; 87081; 90935; 93971; 96374; 96375; 97163; G0378; J1815; J2405; J2470